=== PATIENT | female | born 1950 | race Caucasian/White ===

== ENCOUNTER 2019-11-20 07:38 | Outpatient (REF) | payer MEDICARE, SELFPAY ==
[2019-11-20 08:34] LABS: MANUAL DIFF FLAG NO
[2019-11-20 08:41] LABS: Basophils Percent Auto 0.5 % (0-2); Eosinophils Percent Auto 0.4 % (0-4); Hematocrit 35.5 % (37-47); Hemoglobin 11.6 g/dl (12.0-16.0); Imm Gran Abs Auto 0.05 X10*3/uL (0.00-0.03); Imm Gran Pct Auto 0.7 % (0.0-0.4); Lymphocytes Absolute Auto 1.4 X10*3/uL (1.2-4.9); Lymphocytes Percent Auto 18.7 % (20-40); Mean Corpuscular HGB Conc 32.7 g/dl (31.0-35.0); Mean Corpuscular Hemoglobin 32.3 pg (27.0-33.0); Mean Corpuscular Volume 98.9 fL (80-98); Mean Platelet Volume 9.7 fL (9.4-12.3); Monocytes Absolute Auto 0.7 X10*3/uL (0.1-1.2); Monocytes Percent Auto 8.6 % (2-11); Neutrophils Absolute Auto 5.4 X10*3/uL (2.0-8.3); Neutrophils Percent Auto 71.1 % (45-73); Platelet Count 149 X10*3/uL (160-400); Red Blood Count 3.59 X10*6/uL (4.20-5.50); Red Cell Distribution Width 13.2 % (11.0-16.0); White Blood Count 7.6 X10*3/uL (4.8-10.8)
== END 2019-11-20 07:39 | disposition home or self-care (01) ==
LOC: HO.LAB 07:38
PROVIDERS: PCP Internal Medicine; Visit Provider Internal Medicine Medical Oncology
DX: D69.3 Immune thrombocytopenic purpura (principal)
CPT/HCPCS: 36415; 85025

== ENCOUNTER 2019-12-03 07:08 | Outpatient (REF) | payer MEDICARE, BC, SELFPAY ==
[2019-12-03 07:43] LABS: MANUAL DIFF FLAG NO
[2019-12-03 07:52] LABS: Basophils Percent Auto 0.5 % (0-2); Eosinophils Absolute Auto 0.1 X10*3/uL (0.0-0.4); Eosinophils Percent Auto 0.7 % (0-4); Hematocrit 37.8 % (37-47); Hemoglobin 12.1 g/dl (12.0-16.0); Imm Gran Abs Auto 0.09 X10*3/uL (0.00-0.03); Imm Gran Pct Auto 1.1 % (0.0-0.4); Mean Corpuscular Hemoglobin 32.2 pg (27.0-33.0); Mean Corpuscular Volume 100.5 fL (80-98); Mean Platelet Volume 9.5 fL (9.4-12.3); Monocytes Absolute Auto 0.6 X10*3/uL (0.1-1.2); Monocytes Percent Auto 7.5 % (2-11); Neutrophils Absolute Auto 5.8 X10*3/uL (2.0-8.3); Neutrophils Percent Auto 67.2 % (45-73); Platelet Count 148 X10*3/uL (160-400); Red Blood Count 3.76 X10*6/uL (4.20-5.50); Red Cell Distribution Width 13.9 % (11.0-16.0); White Blood Count 8.6 X10*3/uL (4.8-10.8)
== END 2019-12-03 07:09 | disposition home or self-care (01) ==
LOC: HO.LABR 07:08
PROVIDERS: PCP Internal Medicine; Visit Provider Internal Medicine Medical Oncology
DX: D69.3 Immune thrombocytopenic purpura (principal)
CPT/HCPCS: 36415; 85025

== ENCOUNTER 2019-12-15 11:52 | Inpatient (IN) | payer MEDICARE, BC, SELFPAY ==
[2019-12-15] VITALS (7 sets, daily range): BP systolic 112–147; BP diastolic 65–77; PULSE 88–129; RESP 16–20; TEMP 36.6–39.4; O2SAT 87–98; BMI 29.7; BMI 32.5
--- NOTE | 2019-12-15 12:23 | ED.GENADULT ---
HPI - General Adult General Chief complaint: Nausea/Vomiting/Diarrhea Stated complaint: sob Time Seen by Provider: 12/15/19 12:23 Source: patient Mode of arrival: ambulatory Limitations: no limitations History of Present Illness HPI narrative: Roseann is a 69 y/o F with hx of ITP on For maintenance prednisone 7.5 mg daily, Hypothyroidism,HTN, and HLD presents via [facility] [facility] c/o past 4 days developed upper respiratory symptoms of rhinorrhea /cough by body aches and nausea or vomiting and pain on r side of chest with SOB. she denies any prior history of airway disease, no recent travel or known sick contacts. Onset (ago): day(s) (4 days ) Location: chest Radiation: non-radiation Severity: moderate Severity scale (1-10): 2 Quality: aching Pain Consistency: constant Related Data Home Medications Medication Instructions Recorded Confirmed levothyroxine 50 mcg PO DAILY 12/15/19 12/15/19 metoprolol succinate 75 mg PO DAILY 12/15/19 12/15/19 omeprazole 20 mg PO DAILY 12/15/19 12/15/19 prednisone 5 mg PO Q3D 12/15/19 12/15/19 prednisone 7.5 mg PO PER PKG DIR 12/15/19 12/15/19 rosuvastatin 5 mg PO BEDTIME 12/15/19 12/15/19 Allergies Allergy/AdvReac Type Severity Reaction Status Date / Time sulfur Allergy Unknown Verified 04/02/18 00:00 cillin family Allergy Unknown Uncoded 04/02/18 00:00 [facility] Past Medical History Medical History (Updated 12/15/19 @ 15:59 by Jewel Baca NP) Chronic ITP (idiopathic thrombocytopenia) Hypercholesterolemia Hypertension Social History Social History Alcohol intake: never Smoking Status: Never smoker Use of substances other than those prescribed or required for medical reasons: No Advance Directives: No Advance Directives Information Provided: No Physical Exam Vital Signs: Vital Signs: Vital Signs Temp Pulse Resp BP Pulse Ox 12/15/19 15:40 101.1 F H 12/15/19 14:05 103.0 F H 119 H 18 139/65 91 L 12/15/19 12:24 87 L 12/15/19 11:59 101.3 F H 129 H 20 147/66 H 92 Body Mass Index 29.7 Reviewed Const: General: cooperative and healthy appearing; No acute distress or intoxicated appearing Nutritional Appearance: average body habitus Orientation/consciousness: patient oriented x3 HENMT: Head: Yes normal to inspection Ears: hearing grossly normal bilaterally Eyes: General: appearance normal, both eyes and all related structures Visual [place]: normal visual de la paz by confrontation Neck: Neck: Yes normal visual inspection and No tender Thyroid: Thyroid normal Chest: Chest palpation & inspection: normal inspection of the chest Resp: Effort & Inspection: normal respiratory effort Auscultation: wheezes (Slight Bibasilar) Cardio: Jugular venous distension: no JVD GI: Inspection: Yes normal to inspection Percussion: Yes normal to percussion Auscultation: normal bowel sounds : General: Yes no CVA tenderness Back/Spine/Pelvis: Back: no CVA tenderness Skin: General skin exam: no rashes or lesions noted Neuro: General: patient oriented x3 Extrem: General: Yes normal to inspection Course Course Course Narrative: 1210 findings/ exam concerning for COVID-19/pneumonia. EKG, chest x-ray, COVID-19 certification labs including influenza swab ordered. Patient per RN on room air 88-89% improved to 94% on 2 L of oxygen currently at bedside in no acute distress. Does have a nagging cough, she is on prednisone will go ahead and give her albuterol treatment and monitor closely. This time in no acute distress. Plans/findings reviewed. And agreeable. sepsis screening completed aside from the hypoxia does not meet any sepsis criteria at this time. Reevaluation(s) Reevaluation #1: 1310 Chest x-ray reviewed concerning for patchy infiltrate /CAP Labs/blood cultures done on arrival labs pending. Feels better after neb hemodynamically stable. Ceftriaxone/ azithromycin ordered. Reevaluation #2: 1410 Leukocytosis 14/ low-grade fever / abnormal chest x-ray meets sepsis criteria already given ceftriaxone /azithromycin. No lactic acidosis. No evidence of severe sepsis. DDIMER 7210 / Renal function intact CTA PE Protocol ordered. [address] Cheung for CTA chest PE: extensive PE, no strain Consultations Consultation #1: Case discussed with hospitalist Hodan Carlson NP, accepts care. Medical Decision Making Lab Data Result diagrams: 12/15/19 12:52 12/15/19 12:50 Labs: Lab Results 10/27/20 10/27/20 10/27/20 Range/Units 12:49 12:50 12:50 WBC (4.8-10.8) X10*3/uL RBC (4.20-5.50) X10*6/uL Hgb (12.0-16.0) g/dl Hct (37-47) % MCV (80-98) fL MCH (27.0-33.0) pg MCHC (31.0-35.0) g/dl RDW (11.0-16.0) % Plt Count (160-400) X10*3/uL MPV (9.4-12.3) fL Immature Gran % (Auto) (0.0-0.4) % Neut % (Auto) (45-73) % Lymph % (Auto) (20-40) % [place] % (Auto) (2-11) % Eos % (Auto) (0-4) % Baso % (Auto) (0-2) % Lymph # (Auto) (1.2-4.9) X10*3/uL [place] # (Auto) (0.1-1.2) X10*3/uL Eos # (Auto) (0.0-0.4) X10*3/uL Baso # (Auto) (0.0-0.2) X10*3/uL Abs Immat Gran (auto) (0.00-0.03) X10*3/uL Absolute Neuts (auto) (2.0-8.3) X10*3/uL Absolute Nucleated RBC (0.0-0.012) X10*3/uL Nucleated RBC % (auto) (0.0-0.2) /100WBC PT 15.2 H (10.8-13.0) SEC INR 1.3 H (0.9-1.1) APTT 41.7 H (24.1-38.0) SEC D-Dimer 7210 NG/ML Sodium 131 L (135-145) mmol/L Potassium 4.1 (3.3-5.1) mmol/l Chloride 95 L (96-108) mmol/L Carbon Dioxide 24 (22-29) mmol/L Anion Gap 16 (12-20) BUN 16 (9-16) mg/dL Creatinine 1.04 (0.5-1.4) mg/dL Estim Creat Clear Calc 59.2 Estimated GFR 53 Random Glucose 140 H (60-115) mg/dL Lactic Acid (0.5-2.0) mmol/L Calcium 8.2 L (8.4-10.2) mg/dL Total Bilirubin 1.1 H (0.0-1.0) mg/dL AST 43 H (5-31) U/L ALT 38 H (0-31) U/L Alkaline Phosphatase 59 (39-117) U/L Lactate Dehydrogenase 237 H (122-220) U/L Troponin I High Sens (<3.5-17.0) ng/L B-Natriuretic Peptide (<100) pg/mL Total Protein 6.4 L (6.5-8.0) g/dL Albumin 3.8 (3.5-5.0) g/dL Procalcitonin 0.52 ng/mL Respiratory Panel Maldonado Adenovirus (Rapid PCR) (Not Detect.) B.pert (TEM-PCR) (Not Detect.) B.parapertussis DNA PCR (Not Detect.) C. pneumoniae DNA (PCR) (Not Detect.) Coronavirus OC43 (PCR) (Not Detect.) Coronavirus HKU1 (PCR) (Not Detect.) Coronavirus 229E (PCR) (Not Detect.) Coronavirus NL63 (PCR) (Not Detect.) Human Metapneumovir PCR (Not Detect.) Influenza A (RT-PCR) (Not Detect.) Influenza B (RT-PCR) (Not Detect.) M. pneumoniae (PCR) (Not Detect.) Parainfluenza 1 (PCR) (Not Detect.) Parainfluenza 2 (PCR) (Not Detect.) Parainfluenza 3 (PCR) (Not Detect.) Parainfluenza 4 (PCR) (Not Detect.) RSV (PCR) (Not Detect.) Entero/Rhino (PCR) (Not Detect.) SARS-CoV-2 RNA (RT-PCR) (Not Detect.) 12/15/19 12/15/19 12/15/19 Range/Units 12:50 12:50 12:52 WBC 14.0 H (4.8-10.8) X10*3/uL RBC 3.54 L (4.20-5.50) X10*6/uL Hgb 11.1 L (12.0-16.0) g/dl Hct 33.9 L (37-47) % MCV 95.8 (80-98) fL MCH 31.4 (27.0-33.0) pg MCHC 32.7 (31.0-35.0) g/dl RDW 14.5 (11.0-16.0) % Plt Count 119 L (160-400) X10*3/uL MPV 9.7 (9.4-12.3) fL Immature Gran % (Auto) 0.8 H (0.0-0.4) % Neut % (Auto) 84.2 H (45-73) % Lymph % (Auto) 7.1 L (20-40) % [place] % (Auto) 7.8 (2-11) % Eos % (Auto) 0.0 (0-4) % Baso % (Auto) 0.1 (0-2) % Lymph # (Auto) 1.0 L (1.2-4.9) X10*3/uL [place] # (Auto) 1.1 (0.1-1.2) X10*3/uL Eos # (Auto) 0.0 (0.0-0.4) X10*3/uL Baso # (Auto) 0.0 (0.0-0.2) X10*3/uL Abs Immat Gran (auto) 0.11 H (0.00-0.03) X10*3/uL Absolute Neuts (auto) 11.8 H (2.0-8.3) X10*3/uL Absolute Nucleated RBC 0.000 (0.0-0.012) X10*3/uL Nucleated RBC % (auto) 0.0 (0.0-0.2) /100WBC PT (10.8-13.0) SEC INR (0.9-1.1) APTT (24.1-38.0) SEC D-Dimer NG/ML Sodium (135-145) mmol/L Potassium (3.3-5.1) mmol/l Chloride (96-108) mmol/L Carbon Dioxide (22-29) mmol/L Anion Gap (12-20) BUN (9-16) mg/dL Creatinine (0.5-1.4) mg/dL Estim Creat Clear Calc Estimated GFR Random Glucose (60-115) mg/dL Lactic Acid 1.1 (0.5-2.0) mmol/L Calcium (8.4-10.2) mg/dL Total Bilirubin (0.0-1.0) mg/dL AST (5-31) U/L ALT (0-31) U/L Alkaline Phosphatase (39-117) U/L Lactate Dehydrogenase (122-220) U/L Troponin I High Sens 11.9 (<3.5-17.0) ng/L B-Natriuretic Peptide 24 (<100) pg/mL Total Protein (6.5-8.0) g/dL Albumin (3.5-5.0) g/dL Procalcitonin ng/mL Respiratory Panel Maldonado Adenovirus (Rapid PCR) (Not Detect.) B.pert (TEM-PCR) (Not Detect.) B.parapertussis DNA PCR (Not Detect.) C. pneumoniae DNA (PCR) (Not Detect.) Coronavirus OC43 (PCR) (Not Detect.) Coronavirus HKU1 (PCR) (Not Detect.) Coronavirus 229E (PCR) (Not Detect.) Coronavirus NL63 (PCR) (Not Detect.) Human Metapneumovir PCR (Not Detect.) Influenza A (RT-PCR) (Not Detect.) Influenza B (RT-PCR) (Not Detect.) M. pneumoniae (PCR) (Not Detect.) Parainfluenza 1 (PCR) (Not Detect.) Parainfluenza 2 (PCR) (Not Detect.) Parainfluenza 3 (PCR) (Not Detect.) Parainfluenza 4 (PCR) (Not Detect.) RSV (PCR) (Not Detect.) Entero/Rhino (PCR) (Not Detect.) SARS-CoV-2 RNA (RT-PCR) (Not Detect.) 12/15/19 Range/Units 14:03 WBC (4.8-10.8) X10*3/uL RBC (4.20-5.50) X10*6/uL Hgb (12.0-16.0) g/dl Hct (37-47) % MCV (80-98) fL MCH (27.0-33.0) pg MCHC (31.0-35.0) g/dl RDW (11.0-16.0) % Plt Count (160-400) X10*3/uL MPV (9.4-12.3) fL Immature Gran % (Auto) (0.0-0.4) % Neut % (Auto) (45-73) % Lymph % (Auto) (20-40) % [place] % (Auto) (2-11) % Eos % (Auto) (0-4) % Baso % (Auto) (0-2) % Lymph # (Auto) (1.2-4.9) X10*3/uL [place] # (Auto) (0.1-1.2) X10*3/uL Eos # (Auto) (0.0-0.4) X10*3/uL Baso # (Auto) (0.0-0.2) X10*3/uL Abs Immat Gran (auto) (0.00-0.03) X10*3/uL Absolute Neuts (auto) (2.0-8.3) X10*3/uL Absolute Nucleated RBC (0.0-0.012) X10*3/uL Nucleated RBC % (auto) (0.0-0.2) /100WBC PT (10.8-13.0) SEC INR (0.9-1.1) APTT (24.1-38.0) SEC D-Dimer NG/ML Sodium (135-145) mmol/L Potassium (3.3-5.1) mmol/l Chloride (96-108) mmol/L Carbon Dioxide (22-29) mmol/L Anion Gap (12-20) BUN (9-16) mg/dL Creatinine (0.5-1.4) mg/dL Estim Creat Clear Calc Estimated GFR Random Glucose (60-115) mg/dL Lactic Acid (0.5-2.0) mmol/L Calcium (8.4-10.2) mg/dL Total Bilirubin (0.0-1.0) mg/dL AST (5-31) U/L ALT (0-31) U/L Alkaline Phosphatase (39-117) U/L Lactate Dehydrogenase (122-220) U/L Troponin I High Sens (<3.5-17.0) ng/L B-Natriuretic Peptide (<100) pg/mL Total Protein (6.5-8.0) g/dL Albumin (3.5-5.0) g/dL Procalcitonin ng/mL Respiratory Panel Maldonado See Note Adenovirus (Rapid PCR) Not Detected (Not Detect.) B.pert (TEM-PCR) Not Detected (Not Detect.) B.parapertussis DNA PCR Not Detected (Not Detect.) C. pneumoniae DNA (PCR) Not Detected (Not Detect.) Coronavirus OC43 (PCR) Not Detected (Not Detect.) Coronavirus HKU1 (PCR) Not Detected (Not Detect.) Coronavirus 229E (PCR) Not Detected (Not Detect.) Coronavirus NL63 (PCR) Not Detected (Not Detect.) Human Metapneumovir PCR Not Detected (Not Detect.) Influenza A (RT-PCR) Not Detected (Not Detect.) Influenza B (RT-PCR) Not Detected (Not Detect.) M. pneumoniae (PCR) Not Detected (Not Detect.) Parainfluenza 1 (PCR) Not Detected (Not Detect.) Parainfluenza 2 (PCR) Not Detected (Not Detect.) Parainfluenza 3 (PCR) Not Detected (Not Detect.) Parainfluenza 4 (PCR) Not Detected (Not Detect.) RSV (PCR) Not Detected (Not Detect.) Entero/Rhino (PCR) Not Detected (Not Detect.) SARS-CoV-2 RNA (RT-PCR) Not Detected (Not Detect.) Imaging Data CT scan - chest: Radiologist's impression: [place] [address] CT Scan Report Signed Patient: Carolina Guido#: [id number] : 3Acct:[id number] Age/Sex: 69 / FADM Date: 12/15/19 Loc: HO.ED Attending Dr: Ordering Physician: Jewel Baca NP Date of Service: 12/15/19 Procedure(s): CT angio chest PE protocol Accession Number(s): [id number] cc: Jewel Baca NP~ EXAMINATION: CT ANGIOGRAM OF THE CHEST WITH AND WITHOUT CONTRAST (CT PULMONARY ANGIOGRAM FOR PE) CLINICAL INFORMATION: Reason for Exam SOB COMPARISON: Chest x-ray earlier the same day TECHNIQUE: Prior to contrast administration, noncontrast localization images were obtained. Subsequently, multidetector volumetric imaging was performed from the thoracic inlet to below the diaphragms following the administration of 65 mL Omnipaque 350 intravenous contrast. No contrast reaction reported Sagittal, coronal, and MIP oblique sagittal reformatted images were obtained on the CT workstation, uploaded to PACS, and reviewed. This CT examination was performed using dose optimization techniques as appropriate, variously including the following: *Automated exposure control *Adjustment of mA and/or kV according to patient size (this includes techniques or standardized protocols for targeted exams where dose is matched to indication/reason for exam; i.e. extremities or head) *Use of iterative reconstruction technique Total exam dose-length product 377 mGy-cm FINDINGS: QUALITY OF STUDY/CONTRAST BOLUS: Satisfactory. PULMONARY ARTERIES: There are bilateral segmental pulmonary emboli in the right upper, right middle and right lower lobes and left upper and left lower lobes THORACIC AORTA: No aneurysm or dissection. LUNG: There is a right lower lobe airspace disease with air bronchograms. There is elevation of the right hemidiaphragm. There is subsegmental atelectasis at the left lung base. PLEURA: There is a loculated right pleural effusion in the right pleural major fissure and a small pleural effusion at the right lung base. There is no left pleural effusion. MEDIASTINUM: The heart is slightly enlarged. There is a trace pericardial effusion. No hilar or mediastinal lymphadenopathy. No evidence of septal bowing or right heart strain. CHEST WALL/AXILLA: No axillary or internal mammary lymphadenopathy. OSSEOUS STRUCTURES: No acute or suspicious osseous abnormality. UPPER ABDOMEN: Unremarkable. No reflux of contrast into the hepatic veins to suggest elevated right heart pressures. CT/CT angio chest PE protocol IMPRESSION: Bilateral pulmonary emboli. Right lower lobe consolidation with air bronchograms. Small partially loculated right pleural effusion. VTE: Positive Findings were communicated to Jewel Baca by telephone on 12/15/2019 at 3:18 PM. Dictated By:ROSEANN CHEUNG MD Signed By:<Electronically signed by ROSEANN CHEUNG MD in OV>12/15/19 7518 DD/ 1357 TD/TT: Certified Breastfeeding Educator: ROSEANNA Chest x-ray: Radiologist's impression: [address] [address] XRay Report Signed Patient: Roseann GuidoMR#: [id number] : 3Acct:[id number] Age/Sex: 69 / FADM Date: 12/15/19 Loc: HO.ED Attending Dr: Ordering Physician: Jewel Baca NP Date of Service: 12/15/19 Procedure(s): XR chest 1V Accession Number(s): [id number] cc: Jewel Baca BRAKES INSPECTOR~ EXAMINATION: XR CHEST CLINICAL INFORMATION: Right chest pain COMPARISON: Chest 11/17/2019 TECHNIQUE: Frontal view of the chest was obtained. FINDINGS: Both lungs are somewhat expanded with bibasilar patchy linear opacity consistent atelectasis slightly worse on the right. Suspect small right pleural effusion. The heart size and pulmonary vascularity is normal. No gross bony abnormality seen. XR/XR chest 1V IMPRESSION: Bibasilar patchy linear opacity consistent with atelectasis slightly greater on the right. Small right pleural effusion is suspected. Underlying right lower lobe infiltrate cannot be excluded Dictated By:ILIANA PEDROZA MD Signed By:<Electronically signed by ILIANA PEDROZA MD in OV>12/15/19 1257 DD/ 1225 TD/TT: Certified Breastfeeding Educator: [facility] [place] Discharge Plan Discharge Clinical Impression: Pulmonary air embolism, Viral syndrome, Nausea & vomiting, CAP (community acquired pneumonia), Sepsis Patient Disposition: Admitted As Inpatient Prescriptions: No Action metoprolol succinate 50 mg tablet extended release 24 hr 75 mg PO DAILY RF: 0 levothyroxine 50 mcg tablet 50 mcg PO DAILY RF: 0 omeprazole 20 mg capsule,delayed release(DR/EC) 20 mg PO DAILY RF: 0 rosuvastatin 5 mg tablet 5 mg PO BEDTIME RF: 0 prednisone 5 mg Tablet 7.5 mg PO PER PKG DIR RF: 0 prednisone 5 mg Tablet 5 mg PO Q3D RF: 0
[2019-12-15 13:01] LABS: MANUAL DIFF FLAG NO
[2019-12-15 13:03] LABS: Basophils Percent Auto 0.1 % (0-2); Hematocrit 33.9 % (37-47); Hemoglobin 11.1 g/dl (12.0-16.0); Imm Gran Abs Auto 0.11 X10*3/uL (0.00-0.03); Imm Gran Pct Auto 0.8 % (0.0-0.4); Lymphocytes Percent Auto 7.1 % (20-40); Mean Corpuscular HGB Conc 32.7 g/dl (31.0-35.0); Mean Corpuscular Hemoglobin 31.4 pg (27.0-33.0); Mean Corpuscular Volume 95.8 fL (80-98); Mean Platelet Volume 9.7 fL (9.4-12.3); Monocytes Absolute Auto 1.1 X10*3/uL (0.1-1.2); Monocytes Percent Auto 7.8 % (2-11); Neutrophils Absolute Auto 11.8 X10*3/uL (2.0-8.3); Neutrophils Percent Auto 84.2 % (45-73); Platelet Count 119 X10*3/uL (160-400); Red Blood Count 3.54 X10*6/uL (4.20-5.50); Red Cell Distribution Width 14.5 % (11.0-16.0)
[2019-12-15 13:21] LABS: INTERNATIONAL NORM RATIO 1.3 (0.9-1.1); Prothrombin Time 15.2 SEC (10.8-13.0)
[2019-12-15 13:24] LABS: Partial Thromboplastin Time 41.7 SEC (24.1-38.0)
[2019-12-15 13:27] LABS: Lactic Acid 1.1 mmol/L (0.5-2.0)
[2019-12-15 13:36] LABS: Alanine Aminotransferase 38 U/L (0-31); Albumin Level 3.8 g/dL (3.5-5.0); Alkaline Phosphatase 59 U/L (39-117); Anion Gap 16 (12-20); Aspartate Amino Transferase 43 U/L (5-31); Bilirubin Total 1.1 mg/dL (0.0-1.0); Blood Urea Nitrogen 16 mg/dL (9-16); Calcium 8.2 mg/dL (8.4-10.2); Carbon Dioxide 24 mmol/L (22-29); Chloride 95 mmol/L (96-108); Creatinine Clr Calc Pharmacy 59.2; Estimated Glomerular Filt Rate 53; Glucose Random 140 mg/dL (60-115); Lactate Dehydrogenase 237 U/L (122-220); Potassium 4.1 mmol/l (3.3-5.1); Sodium 131 mmol/L (135-145); Total Protein 6.4 g/dL (6.5-8.0)
[2019-12-15 13:39] LABS: B Type Natriuretic Peptide 24 pg/mL (<100); Troponin-I High Sensitivity 11.9 ng/L (<3.5-17.0)
[2019-12-15 13:56] LABS: D Dimer 7210 NG/ML
[2019-12-15] MEDS: cefTRIAXone sodium 1 GM in 0.9 % Sodium Chloride 50 ML IV (13:57)
--- NOTE | 2019-12-15 13:57 | CT_ITS ---
EXAMINATION: CT ANGIOGRAM OF THE CHEST WITH AND WITHOUT CONTRAST (CT PULMONARY ANGIOGRAM FOR PE) CLINICAL INFORMATION: Reason for Exam SOB COMPARISON: Chest x-ray earlier the same day TECHNIQUE: Prior to contrast administration, noncontrast localization images were obtained. Subsequently, multidetector volumetric imaging was performed from the thoracic inlet to below the diaphragms following the administration of 65 mL Omnipaque 350 intravenous contrast. No contrast reaction reported Sagittal, coronal, and MIP oblique sagittal reformatted images were obtained on the CT workstation, uploaded to PACS, and reviewed. This CT examination was performed using dose optimization techniques as appropriate, variously including the following: *Automated exposure control *Adjustment of mA and/or kV according to patient size (this includes techniques or standardized protocols for targeted exams where dose is matched to indication/reason for exam; i.e. extremities or head) *Use of iterative reconstruction technique Total exam dose-length product 377 mGy-cm FINDINGS: QUALITY OF STUDY/CONTRAST BOLUS: Satisfactory. PULMONARY ARTERIES: There are bilateral segmental pulmonary emboli in the right upper, right middle and right lower lobes and left upper and left lower lobes THORACIC AORTA: No aneurysm or dissection. LUNG: There is a right lower lobe airspace disease with air bronchograms. There is elevation of the right hemidiaphragm. There is subsegmental atelectasis at the left lung base. PLEURA: There is a loculated right pleural effusion in the right pleural major fissure and a small pleural effusion at the right lung base. There is no left pleural effusion. MEDIASTINUM: The heart is slightly enlarged. There is a trace pericardial effusion. No hilar or mediastinal lymphadenopathy. No evidence of septal bowing or right heart strain. CHEST WALL/AXILLA: No axillary or internal mammary lymphadenopathy. OSSEOUS STRUCTURES: No acute or suspicious osseous abnormality. UPPER ABDOMEN: Unremarkable. No reflux of contrast into the hepatic veins to suggest elevated right heart pressures. CT/CT angio chest PE protocol IMPRESSION: Bilateral pulmonary emboli. Right lower lobe consolidation with air bronchograms. Small partially loculated right pleural effusion. VTE: Positive Findings were communicated to Jewel Baca by telephone on 12/15/2019 at 3:18 PM.
[2019-12-15 14:21] LABS: Adenovirus PCR Not Detected (Not Detect.); Bordetella parapertussis PCR Not Detected (Not Detect.); Bordetella pertussis PCR Not Detected (Not Detect.); Chlamydia pneumoniae PCR Not Detected (Not Detect.); Coronavirus 229E PCR Not Detected (Not Detect.); Coronavirus HKU1 PCR Not Detected (Not Detect.); Coronavirus NL63 PCR Not Detected (Not Detect.); Coronavirus OC43 PCR Not Detected (Not Detect.); Human metapneumovirus PCR Not Detected (Not Detect.); Influenza A PCR Not Detected (Not Detect.); Influenza B PCR Not Detected (Not Detect.); Mycoplasma pneumoniae PCR Not Detected (Not Detect.); Parainfluenza 1 PCR Not Detected (Not Detect.); Parainfluenza 2 PCR Not Detected (Not Detect.); Parainfluenza 3 PCR Not Detected (Not Detect.); Parainfluenza 4 PCR Not Detected (Not Detect.); RSV PCR Not Detected (Not Detect.); Rhino/Enterovirus PCR Not Detected (Not Detect.); SARS-CoV-2 PCR Not Detected (Not Detect.)
[2019-12-15] MEDS: Acetaminophen 325 MG TABLET 975 MG PO (14:39)
[2019-12-15] MEDS: ondansetron HCL 4 MG/2 ML VIAL IVPUSH (14:40)
[2019-12-15 14:52] LABS: Procalcitonin 0.52 ng/mL
[2019-12-15] MEDS: iohexoL 350 MG/ML 100 ML INFUS..BTL 65 ML IV (14:54)
--- NOTE | 2019-12-15 15:06 | PC.NURSE ---
pt verified her prednisone dose as 7.5mg once daily for day 1 & 2 then 5mg for day 3 and then the cycle repeats. - pharmacist aware
[2019-12-15] MEDS: Azithromycin 500 MG in 0.9 % Sodium Chloride 250 ML 125 MG IV (15:18)
[2019-12-15 15:57] LABS: Hematocrit 32.3 % (37-47); Hemoglobin 10.6 g/dl (12.0-16.0); Mean Corpuscular HGB Conc 32.8 g/dl (31.0-35.0); Mean Corpuscular Hemoglobin 31.2 pg (27.0-33.0); Mean Platelet Volume 9.4 fL (9.4-12.3); Platelet Count 116 X10*3/uL (160-400); Red Cell Distribution Width 14.5 % (11.0-16.0); White Blood Count 13.1 X10*3/uL (4.8-10.8)
[2019-12-15 16:03] LABS: INTERNATIONAL NORM RATIO 1.3 (0.9-1.1); Prothrombin Time 15.8 SEC (10.8-13.0)
[2019-12-15 16:05] LABS: PTT Heparin Drip 43.6 SEC (53-77.9)
[2019-12-15] MEDS: Heparin Sodium,Porcine 5,000 UNIT/ML VIAL 3447.32 UNIT IVPUSH (16:17)
[2019-12-15 16:28] LABS: Troponin-I High Sensitivity 18.6 ng/L (<3.5-17.0)
[2019-12-15] MEDS: Heparin Sodium,Porcine/1/2NS 25,000 UNIT/250 ML IV.SOLN 12.07 UNIT IVCONT (16:30)
--- NOTE | 2019-12-15 17:42 | PM.EVENT ---
Event Note Event Note: This patient is seen and examined with APC. Patient said she is having dry cough some runny nose, nausea from 3-4 days , also started to having sweating and fever since yesterday-she went to her PCP today and subsequently sent to the ED for further evaluation She said she was also feeling winded and also had some chest discomfort. Denies any sick contacts, any travel or any family member with similar symptoms. labs ,magin review reviewed: Patient had elevated WBC count, elevated LFT, mild hyponatremia, troponin flat, BNP normal Blood culture, urine strep and Legionella antigen. CTA chest: Showed bilateral pulmonary embolism lobe pneumonia with small effusion RES panel negative Physical exam: Cvs: rrr, [id number] , no murmur res: Air entry diminished at the bases right is more than left, has few scattered rhonchi abd: no rebound or guarding ,nt, bs present. ext pulses present , no cyanosis neuro: axo3 , nonfocal. Physical exam and assessment and plan coordinated in APCs note, Agree with the plan in addition: Patient has history of ITP, now has pulmonary embolism Initially in ED received heparin drip, Will switch the patient to Lovenox as per hematology Hematology and Infectious Disease evaluation in a.m..
--- NOTE | 2019-12-15 18:09 | HP_ITS ---
DATE OF SERVICE: 12/15/2019 CHIEF COMPLAINT: Shortness of breath. HISTORY OF PRESENT ILLNESS: 69-year-old woman, presenting to the ER with complaints of shortness of breath, dry cough, fever, chills, nausea and vomiting since last Saturday. She denies any recent travel or sick contacts. She reports pain with deep inspiration. 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 She was noted to have an elevated white blood cell count of 13.1 with platelet count of 116. Sodium 131, bilirubin 1.1, AST 43, ALT 38, LDH 237. Troponin 18.6. Chest CTA showed bilateral pulmonary emboli with right lower lobe consolidation with air bronchograms and small partially loculated right pleural effusion. She was also noted to have a fever of 103 with tachycardia and hypoxia. She was started on IV heparin and given albuterol, Zofran, ceftriaxone, azithromycin, and Tylenol. She will be admitted for further management and treatment of sepsis secondary to community-acquired pneumonia. PAST MEDICAL HISTORY: 1. Hypothyroidism. 2. Hypertension. 3. Hyperlipidemia. 4. ITP, on prednisone. PAST SURGICAL HISTORY: None. FAMILY HISTORY: Mother had colon and rectal cancer. Father had lung cancer. SOCIAL HISTORY: Denies any alcohol, tobacco, or illicit drug use. Is retired. ALLERGIES: ALLERGIES TO SULFUR. MEDICATIONS: 1. Levothyroxine 50 mcg p.o. daily. 2. Metoprolol succinate 75 mg p.o. daily. 3. Omeprazole 20 mg p.o. daily. 4. Prednisone 7.5 mg p.o. 5. Prednisolone 5 mg every 3 days. 6. Rosuvastatin 5 mg p.o. at bedtime. REVIEW OF SYSTEMS: CONSTITUTIONAL: Reports fever, chills, and decrease in appetite. RESPIRATORY: See HPI. CARDIOVASCULAR: Denies any chest pain, orthopnea, PND, or edema. GASTROINTESTINAL: See HPI. GENITOURINARY: Denies any dysuria, frequency, or hematuria. MUSCULOSKELETAL: Denies joint pain or swelling. NEUROPSYCH: Denies any weakness or seizures. All other systems are reviewed and are negative. PHYSICAL EXAMINATION: CONSTITUTIONAL: Resting in bed, appearing in no acute distress. VITAL SIGNS: 101.1, 119, 18, 139/65, 91% on 2 L. SKIN: Intact without rashes or open sores. HEENT: Head is normocephalic, atraumatic. Eyes, pupils are PERRLA. Sclerae anicteric. Mouth and Throat: Mucous membranes are intact and moist. NECK: Supple. No lymphadenopathy. No JVD noted. CHEST: Normal lung expansion. HEART: Tachycardic. NEURO: The patient is alert and oriented x3. Cranial nerves II through XII are grossly intact without focal deficits. LABORATORY DATA: WBC 13.1, hemoglobin 10.6, hematocrit 32.3, platelets 116. Sodium is 131, potassium is 4.1, chloride is 95, glucose is 140, total bilirubin is 1.1, AST is 43, ALT is 38, LDH is 237. Procalcitonin is 0.52. Troponin 18.6. ASSESSMENT AND PLAN: 69-year-old woman, who is being admitted with sepsis related to community-acquired pneumonia and also found to have bilateral pulmonary emboli. 1. Sepsis. Fever, leukocytosis, tachycardia, normal lactic acid. Follow up blood cultures. 2. Community-acquired pneumonia. COVID negative. We will treat with Rocephin and azithromycin. Continue supplemental oxygen. 3. Acute respiratory failure. Related to community-acquired pneumonia. Continue oxygen supplementation and treatment as above. 4. Bilateral pulmonary embolus. No trauma, spontaneous. Lovenox,, Hematology to follow. We will check coags. 5. Hypertension. Continue metoprolol. 6. ITP. Continue steroids monitor platelet count. 7. Gastroesophageal reflux disease. Continue PPI. 8. Hyperlipidemia. Continue statin. 9. Deep vein thrombosis prophylaxis with Lovenox. 10. Case discussed with Dr. Moura. Full code. DEIDRA Solorzano MD JR/SANKET / [id number] MTDD
--- NOTE | 2019-12-15 18:40 | PC.NURSE ---
heparinn drip d/c after 20ml infused per md canales. pt continues resting comfortable, in no distress.
[2019-12-15] MEDS: Atorvastatin Calcium 20 MG TABLET PO (20:52)
[2019-12-15] MEDS: Enoxaparin Sodium 100 MG/ML SYRINGE 95 MG SUBCUT (20:53)
[2019-12-15] MEDS: 0.9 % Sodium Chloride Flush 3 ML SYRINGE IVFLUSH (20:54)
[2019-12-16] VITALS (7 sets, daily range): BP systolic 122–146; BP diastolic 58–70; PULSE 90–114; RESP 16–20; TEMP 36.1–37.5; O2SAT 94–100; BMI 32.5
--- NOTE | 2019-12-16 | ECG_ITS ---
Test Reason : CHEST PAIN Blood Pressure : / mmHG Vent. Rate : 099 BPM Atrial Rate : 099 BPM P-R Int : 164 ms QRS Dur : 090 ms QT Int : 360 ms P-R-T Axes : 034 030 011 degrees QTc Int : 462 ms Normal sinus rhythm Nonspecific T wave abnormality Low voltage QRS Abnormal ECG No previous ECGs available Referred By: Izabela Moura Electronically Signed By:TAMMY MORA MD
[2019-12-16 06:21] LABS: MANUAL DIFF FLAG NO
[2019-12-16 06:39] LABS: Basophils Percent Auto 0.1 % (0-2); Eosinophils Percent Auto 0.1 % (0-4); Hematocrit 30.6 % (37-47); Hemoglobin 9.9 g/dl (12.0-16.0); Imm Gran Abs Auto 0.09 X10*3/uL (0.00-0.03); Imm Gran Pct Auto 0.8 % (0.0-0.4); Lymphocytes Absolute Auto 1.6 X10*3/uL (1.2-4.9); Mean Corpuscular HGB Conc 32.4 g/dl (31.0-35.0); Mean Corpuscular Hemoglobin 31.2 pg (27.0-33.0); Mean Corpuscular Volume 96.5 fL (80-98); Mean Platelet Volume 10.1 fL (9.4-12.3); Monocytes Absolute Auto 0.9 X10*3/uL (0.1-1.2); Monocytes Percent Auto 7.8 % (2-11); Neutrophils Absolute Auto 8.3 X10*3/uL (2.0-8.3); Neutrophils Percent Auto 76.2 % (45-73); Platelet Count 128 X10*3/uL (160-400); Red Blood Count 3.17 X10*6/uL (4.20-5.50); Red Cell Distribution Width 14.3 % (11.0-16.0); White Blood Count 10.9 X10*3/uL (4.8-10.8)
[2019-12-16 06:40] LABS: INTERNATIONAL NORM RATIO 1.2 (0.9-1.1); Prothrombin Time 14.7 SEC (10.8-13.0)
[2019-12-16 07:01] LABS: Alanine Aminotransferase 28 U/L (0-31); Albumin Level 3.2 g/dL (3.5-5.0); Alkaline Phosphatase 55 U/L (39-117); Anion Gap 15 (12-20); Aspartate Amino Transferase 28 U/L (5-31); Bilirubin Direct 0.3 mg/dL (0.0-0.5); Bilirubin Total 0.6 mg/dL (0.0-1.0); Blood Urea Nitrogen 17 mg/dL (9-16); Calcium 7.9 mg/dL (8.4-10.2); Carbon Dioxide 24 mmol/L (22-29); Chloride 100 mmol/L (96-108); Creatinine Clr Calc Pharmacy 89.4; Estimated Glomerular Filt Rate > 60; Glucose Random 109 mg/dL (60-115); Potassium 3.9 mmol/l (3.3-5.1); Sodium 135 mmol/L (135-145); Total Protein 5.6 g/dL (6.5-8.0)
[2019-12-16] MEDS: 0.9 % Sodium Chloride Flush 3 ML SYRINGE IVFLUSH ×3 (08:23→20:43)
[2019-12-16] MEDS: Enoxaparin Sodium 100 MG/ML SYRINGE 95 MG SUBCUT ×2 (08:23→20:41)
[2019-12-16] MEDS: Metoprolol Succinate ER 50 MG TAB.ER.24H 75 MG PO (08:24)
[2019-12-16] MEDS: predniSONE 5 MG TABLET PO (08:24)
[2019-12-16] MEDS: Levothyroxine Sodium 50 MCG TABLET PO (08:24)
[2019-12-16 08:56] LABS: Hematocrit 34.7 % (37-47); Hemoglobin 11.2 g/dl (12.0-16.0); Mean Corpuscular HGB Conc 32.3 g/dl (31.0-35.0); Mean Corpuscular Hemoglobin 31.5 pg (27.0-33.0); Mean Corpuscular Volume 97.5 fL (80-98); Mean Platelet Volume 10.3 fL (9.4-12.3); Platelet Count 163 X10*3/uL (160-400); Red Blood Count 3.56 X10*6/uL (4.20-5.50); Red Cell Distribution Width 14.4 % (11.0-16.0); White Blood Count 14.6 X10*3/uL (4.8-10.8)
--- NOTE | 2019-12-16 09:24 | MHC.CM.PN ---
Patient lives in a house with her and she is functionally independent and does not use O2 @ home. Home is the goal for dc and CM has initiated and will follow for dc planning. IMM addressed with Patient and the original has been given to her and a copy has been placed in the chart. Dr. Sg Zhong is the PCP.
--- NOTE | 2019-12-16 11:52 | PM.CNCAR ---
History of Present Illness History of Present Illness Date of Consult: December 16, 2019 Requesting physician: Izabela Moura Consult reason: chest pain Chief complaint: sob Narrative: This is a cardiology consultation regarding chest pain. Patient came to ER with shortness of breath, dry cough, fever, chills and some nausea/ vomiting. No recent travel or sick contacts. She has been reporting pain with deep inspiration. 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 Chest CTA shows bilateral pulmonary emboli with right lower lobe consolidation and a small partially loculated right pleural effusion. She apparently also had a fever of 103 degrees F on heparin as well as antibiotics. From a cardiac standpoint, we has been asked to assess the chest pain further. She denies any prior history of coronary disease, myocardial infarction or any other cardiac issues. No previous history of coronary disease, myocardial infarction as well. She states that she has hypertension, hyperlipidemia on medical therapy. Her chest pain is on the right side below the right breast area. Does not sound anginal. More likely pleuritic. Review of Systems Review of Systems: Cardiac-chest pain is more likely pleuritic. Not clearly suggestive of angina. No shortness of breath or dizzy spells or syncopal episodes. Constitutional positive for fever. Remainder of the 10 system review negative. [facility] Past Medical History Medical History Chronic ITP (idiopathic thrombocytopenia) Hypercholesterolemia Hypertension Social History Social History Household Members: Spouse Housing: House Do you presently have visiting nurse or other home services: No Alcohol intake: never Smoking Status: Never smoker Use of substances other than those prescribed or required for medical reasons: No Currently Displaying Signs/Symptoms of Drug Intoxication Withdrawal: No Have you been hit, kicked, punched, or otherwise hurt by someone within the past year? If so, by whom?: No Do you feel safe in your current relationship?: Yes Is there a partner from a previous relationship who is making you feel unsafe now?: No Are you made to feel afraid or neglected: No [facility] Practices: Faith Advance Directives: No Advance Directives Information Provided: No Do you have thoughts of harming others: None Do you have a plan to hurt others: No Plan Recently lost weight without trying: No service: No Current occupational status: retired Meds Allergies Allergy/AdvReac Type Severity Reaction Status Date / Time sulfur Allergy Unknown Verified 04/02/18 00:00 cillin family Allergy Unknown Uncoded 04/02/18 00:00 Home Medications Medication Instructions Recorded Confirmed Type levothyroxine 50 mcg PO DAILY 12/15/19 12/15/19 History metoprolol succinate 75 mg PO DAILY 12/15/19 12/15/19 History omeprazole 20 mg PO DAILY 12/15/19 12/15/19 History prednisone 5 mg PO Q3D 12/15/19 12/15/19 History prednisone 7.5 mg PO PER PKG DIR 12/15/19 12/15/19 History rosuvastatin 5 mg PO BEDTIME 12/15/19 12/15/19 History Physical Exam Vital Signs: Vital Signs: Vital Signs Temp Pulse Resp BP Pulse Ox 12/16/19 11:07 99.3 F 98 18 129/61 94 12/16/19 08:24 114 H 129/58 L 12/16/19 07:47 99.5 F 114 H 20 129/58 L 100 12/16/19 04:00 98.9 F 98 20 146/70 H 95 12/15/19 23:43 99.0 F 18 141/70 H 98 12/15/19 20:00 97.9 F 90 20 123/77 98 12/15/19 18:39 88 16 112/65 96 12/15/19 15:40 101.1 F H 12/15/19 14:05 103.0 F H 119 H 18 139/65 91 L 12/15/19 12:24 87 L 12/15/19 11:59 101.3 F H 129 H 20 147/66 H 92 Body Mass Index 32.5 Comfortable, no distress No pallor, icterus or cyanosis HEENT -unremarkable JVD- normal Cardiac- normal heart sounds, no murmurs, gallops or rubs, normal PMI Respiratory-normal breath sounds bilaterally, no crackles, no wheeze Abdomen- soft, nontender Neuro- alert and oriented Lower extremities- no significant edema, warm well perfused Results Labs and Meds Result diagrams: 12/16/19 08:04 12/16/19 06:04 Lab results: Laboratory Tests 12/15/19 12/15/19 12/15/19 12:50 15:51 20:45 Troponin I High Sens 11.9 18.6 H D 12.0 B-Natriuretic Peptide 24 EKG Interpretation EKG Comments: EKG shows sinus rhythm at 99/Min; nonspecific changes in inferior leads but otherwise unremarkable. CT chest - Bilateral pulmonary emboli. Right lower lobe consolidation with air bronchograms. Small partially loculated right pleural effusion. Assessment and Plan (1) Pulmonary embolism: Status: Acute (2) Chest pain: Status: Acute Her chest pain is most likely related to the pulmonary embolism and the pleural effusion as she is pointing towards the right lower chest. Unlikely cardiac in nature. We can check an echocardiogram for right ventricular size and function as well as pulmonary pressures. Management of pulmonary embolism per hospitalist team.
[2019-12-16] MEDS: cefTRIAXone sodium 1 GM in 0.9 % Sodium Chloride 50 ML IV (12:01)
[2019-12-16 12:38] LABS: Glucose Urine UA NEG (NEG); Leukocyte Esterase Urine NEG (NEG); Nitrite Urine NEG (NEG); Specific Gravity - Urine >= 1.030 (1.005-1.025); Urine Blood TRACE (NEG); Urine Ketones 15 MG/DL (NEG); Urine Protein 2+ MG/DL (NEG-TRACE)
[2019-12-16 12:40] LABS: Appearance Urine CLOUDY; Color Urine YELLOW
--- NOTE | 2019-12-16 13:00 | CA_ITS ---
Transthoracic Echocardiogram Patient (Last, First, Middle): Roseann Guido, Gender: Female Date of : 1950 Age: 69 Procedure Date: 12/16/2019 Procedure Type: Transthoracic Echocardiogram Location: [facility] [place] Height: 170.18 cm Weight: 86.18 kg BSA: 1.98 m2 Heart Rate: bpm BP: 123 / 70 mmHg Materials Scheduler: Referring MD: Izabela Moura MD Symptoms: pulm embolism Study Quality: Good ECG Rhythm: Sinus Conclusions: - The left ventricular systolic function is normal. The visually estimated ejection fraction is between 55-60%. - No obvious valvular pathology seen on this study. - Mild pulmonary hypertension is present. Findings Left Ventricle Normal left ventricular cavity size. There is normal left ventricular wall thickness. The left ventricular systolic function is normal. The visually estimated ejection fraction is between 55-60%. There is no evidence of regional wall motion abnormalities. Diastolic function is normal for age. LV endocardial peak global longitudinal strain -15.3% (low normal). Right Ventricle Normal right ventricular cavity size and systolic function. Atria The left atrium is normal in size. The right atrium is normal in size. Aortic Valve There is a normal trileaflet aortic valve. There is no aortic valve stenosis. There is trace (trivial) aortic valve regurgitation. Mitral Valve The mitral valve appears normal. There is no mitral valve regurgitation. There is no mitral valve stenosis. Pulmonic Valve The pulmonic valve was not well visualized. There is trace pulmonic valve regurgitation. Tricuspid Valve Normal tricuspid valve structure. There is trace tricuspid valve regurgitation. The right ventricular systolic pressure is 36 mmHg. Mild pulmonary hypertension is present. Great Vessels The aortic annulus, sinuses of valsalva, and asc aorta are normal in size. Venous The inferior vena cava is normal in size and collapses greater than 50% with inspiration. Pericardium/Pleural There is no evidence of pericardial effusion. Prior Study Comparison No prior study available for comparison. Recommendations, Care & Conclusions No obvious valvular pathology seen on this study. Measurements 2D Linear Measurements IVSd: 1.12 0.6-0.9/0.6-1.0 cm LVIDd: 3.94 3.9-5.3/4.2-5.9 cm LVIDd Index: 1.99 2.4-3.2/2.2-3.1 cm/m2 LVIDs: 2.53 2.0-3.6 cm LVPWd: 1.07 0.7-1.1 cm Ao Root: 2.90 2.1-3.5 cm LA Diam: 2.80 2.7-3.8/3.0-4.0 cm LAIDs Index: 1.41 1.5-2.3 cm/m2 LV Mass: 175.95 67-162/88-224 g LV Mass Index: 88.86 43-95/49-115 g/m2 LVOT Diam: 2.00 3.0+(-)1.3 cm Mitral Valve MV Pk E: 0.78 MV PK A: 0.81 MV Decel Time: 92.00 E/A: 1.00 E'Lateral: 8.81 E'Medial: 5.55 E/E' Med: 14.10 E/E' Lat: 8.90 PHT: 27.00 MVA PHT: 8.15 Decel Foard: 8.48 Aortic Valve AoV Pk Regino: 1.89 AoV Mn Regino: 1.28 AoV VTI: 0.39 AoV Pk Grad: 14.00 Aov Mn Grad: 8.00 CARLO Cont.VTI: 1.84 LVOT LVOT Pk Regino: 1.04 LVOT Mn Regino: 0.76 LVOT VTI: 0.23 LVOT Pk Grad: 4.00 LVOT Mn Grad: 3.00 LVOT Diam: 2.00 LVOT Area: 3.14 Diastolic Function MV Pk E: 0.78 MV Pk A: 0.81 E/A: 1.00 E'Medial: 5.55 E/E' Med: 14.10 E' Laterial: 8.81 E/E' Lat: 8.90 Tricuspid Valve TR Pk Regino: 2.87 TR Pk Grad: 33.00 RA Press: 3.00 RVSP: 36.00 Great Vessels Aorta Ao Root-2D: 2.90 2.0-3.7 cm Ao Asc: 3.60 2.1-3.4 cm Pulmonary Valve PV Pk Regino: 0.95 Peak PV Grad: 4.00 Updated in Other Vendor System with Status of Final Cesario Monzon MD electronically signed on 12/16/2019 4:55:29 PM with status of Final
[2019-12-16 13:12] LABS: Bacteria Urine 1+ /LPF; Hyaline Casts Urine 0-2 /LPF; Mucus Urine 1+ /LPF; Squamous Epithelial Cell Urine 1+ /LPF
[2019-12-16 13:13] LABS: Amorphous Sediment Urine 1+ /LPF
[2019-12-16] MEDS: Azithromycin 500 MG in 0.9 % Sodium Chloride 250 ML 125 MG IV (14:05)
--- NOTE | 2019-12-16 16:29 | HO.PM.IMPN ---
Subjective Subjective Date of Service: 12/16/19 Interval History: Pneumonia, bilateral pulmonary embolism. Review of Systems Patient complaining of chest tightness and shortness of breath but says she is feeling little better than yesterday. Physical Exam Vital Signs: Vital Signs: Vital Signs Temp Pulse Resp BP Pulse Ox 12/16/19 16:24 99.5 F 104 H 18 124/64 98 12/16/19 11:07 99.3 F 98 18 129/61 94 12/16/19 08:24 114 H 129/58 L 12/16/19 07:47 99.5 F 114 H 20 129/58 L 100 12/16/19 04:00 98.9 F 98 20 146/70 H 95 12/15/19 23:43 99.0 F 18 141/70 H 98 12/15/19 20:00 97.9 F 90 20 123/77 98 12/15/19 18:39 88 16 112/65 96 Body Mass Index 32.5 Physical exam: Cvs: [id number], [id number] , no murmur res: clear to auscultation -breath sounds diminshed at bases. abd: no rebound or guarding ,nt, bs present. ext pulses present , no cyanosis neuro: axo3 , nonfocal. Objective Data Current Medications Generic Name Dose Route Start Last Admin Trade Name Freq PRN Reason Stop Dose Admin Albuterol/Ipratropium 3 ml 12/15/19 20:13 Albuterol/Iprat 2.5/0.5mg 3 Ml Ampul.Neb INHALE RQ4H PRN Shortness of Breath Atorvastatin Calcium 20 mg 12/15/19 21:00 12/15/19 20:52 Atorvastatin Calcium 20 Mg Tablet PO 20 mg BEDTIME CHRISTINA Administration Enoxaparin Sodium 95 mg 12/15/19 20:00 12/16/19 08:23 Enoxaparin Sodium 100 Mg/Ml Syringe SUBCUT 95 mg Q12H CHRISTINA Administration Guaifenesin/Dextromethorphan 5 ml 12/15/19 20:13 Guaifenesin Dm 100/10/5 Ml 5 Ml Syrup PO Q4H PRN COUGH Ceftriaxone Sodium 1 gm/ 50 mls @ 100 mls/hr 12/16/19 13:00 12/16/19 12:35 Sodium Chloride IV Infused Q24H CHRISTINA Infusion Azithromycin 500 mg/ Sodium 250 mls @ 125 mls/hr 12/16/19 15:00 12/16/19 16:07 Chloride IV Infused Q24H [facility] Infusion Levothyroxine Sodium 50 mcg 12/16/19 09:00 12/16/19 08:24 Levothyroxine Sodium 50 Mcg Tablet PO 50 mcg DAILY [facility] Administration Metoprolol Succinate 75 mg 12/16/19 09:00 12/16/19 08:24 Metoprolol Succinate Er 50 Mg Tab.Er.24h PO 75 mg DAILY [facility] Administration Protocol Omeprazole 20 mg 12/16/19 09:00 12/16/19 08:24 Omeprazole 20 [address] LANDRY Not Given DAILY [facility] Pharmacy Consult 1 each 12/15/19 13:57 Consult Rx Perform Med Rec MISCELLANE ONCE PRN Consult order Prednisone 7.5 mg 12/17/19 09:00 Prednisone 5 Mg Tablet PO DAILY [facility] Sodium Chloride 3 ml 12/16/19 00:00 12/16/19 14:05 0.9 % Sodium Chloride Flush 3 Ml Syringe IVFLUSH 3 ml QSHIFT [facility] Administration Warfarin Sodium 5 mg 12/16/19 18:00 Warfarin Sodium 5 Mg Tablet PO DAILY@1800 [facility] Labs CBC & Chem 7: 12/16/19 08:04 12/16/19 06:04 Microbiology Microbiology Results: Microbiology 12/15/19 12:49 Blood - Venous Blood Culture - Preliminary No growth after 24 hours. Assessment and Plan (1) Chest pain: Status: Acute (2) Pulmonary embolism: Status: Acute (3) CAP (community acquired pneumonia): Status: Acute Assessment and Plan: 69-year-old woman, who is being admitted with sepsis related to community-acquired pneumonia and also found to have bilateral pulmonary emboli. 1. Sepsis. Probably secondary to pneumonia still has leukocytosis, tachycardia blood cultures pending Fever improving 2. Community-acquired pneumonia. COVID negative. Continue Rocephin and azithromycin. Continue supplemental oxygen. 3. Acute respiratory failure. Related to community-acquired pneumonia. Continue oxygen supplementation and treatment as above. 4. Bilateral pulmonary embolus. Continue Lovenox will add warfarin. Hematology jensen Dr. Day saw the patient and recommended above. Patient also had chest tightness-pulmonary embolism, troponin flat, echo ordered. 5. Hypertension. Continue metoprolol. 6. ITP. Continue steroids monitor platelet count. As per Hematology continue prednisone. 7. Gastroesophageal reflux disease. Continue PPI. 8. Hyperlipidemia. Continue statin.
[2019-12-16] MEDS: Warfarin Sodium 5 MG TABLET PO (17:08)
[2019-12-16] MEDS: Atorvastatin Calcium 20 MG TABLET PO (20:41)
[2019-12-17 03:54] VITALS: BP 118/66; PULSE 94; RESP 16; TEMP 36.1; O2SAT 97
[2019-12-17 06:28] LABS: Hemoglobin 9.8 g/dl (12.0-16.0)
[2019-12-17 06:52] LABS: Anion Gap 14 (12-20); Blood Urea Nitrogen 15 mg/dL (9-16); Carbon Dioxide 27 mmol/L (22-29); Chloride 101 mmol/L (96-108); Creatinine Clr Calc Pharmacy 96.1; Estimated Glomerular Filt Rate > 60; Glucose Random 114 mg/dL (60-115); INTERNATIONAL NORM RATIO 1.3 (0.9-1.1); Potassium 3.9 mmol/l (3.3-5.1); Prothrombin Time 15.1 SEC (10.8-13.0); Sodium 138 mmol/L (135-145)
[2019-12-17 08:00] VITALS: BP 140/69; PULSE 99; RESP 18; TEMP 36.6; O2SAT 96
[2019-12-17] MEDS: Enoxaparin Sodium 100 MG/ML SYRINGE 95 MG SUBCUT ×2 (09:12→18:41)
[2019-12-17] MEDS: Levothyroxine Sodium 50 MCG TABLET PO (09:15)
[2019-12-17] MEDS: 0.9 % Sodium Chloride Flush 3 ML SYRINGE IVFLUSH ×2 (09:15→15:50)
[2019-12-17] MEDS: predniSONE 5 MG TABLET 7.5 MG PO (09:15)
[2019-12-17] MEDS: Omeprazole 20 MG CAPSULE.DR PO (09:15)
[2019-12-17] MEDS: Metoprolol Succinate ER 50 MG TAB.ER.24H 75 MG PO (09:23)
[2019-12-17 09:29] LABS: Platelet Count 172 X10*3/uL (160-400)
[2019-12-17 09:39] LABS: Alanine Aminotransferase 39 U/L (0-31); Albumin Level 3.3 g/dL (3.5-5.0); Alkaline Phosphatase 64 U/L (39-117); Aspartate Amino Transferase 36 U/L (5-31); Bilirubin Direct 0.3 mg/dL (0.0-0.5); Bilirubin Total 0.6 mg/dL (0.0-1.0); Total Protein 5.6 g/dL (6.5-8.0)
[2019-12-17 12:00] VITALS: BP 123/66; PULSE 91; RESP 18; TEMP 36.4; O2SAT 96
[2019-12-17] MEDS: cefTRIAXone sodium 1 GM in 0.9 % Sodium Chloride 50 ML IV (12:21)
[2019-12-17 13:32] LABS: DRVVT 1:1 Mix NOT CORRECTED (CORRECTED); DRVVT Confirmation POSITIVE (NEGATIVE); PTT (LAC) Screen 40 sec (< OR = 40)
[2019-12-17] MEDS: Azithromycin 500 MG in 0.9 % Sodium Chloride 250 ML 125 MG IV (14:20)
[2019-12-17 16:00] VITALS: BP 126/59; PULSE 92; RESP 16; TEMP 37.1; O2SAT 96
--- NOTE | 2019-12-17 17:16 | HO.PM.IMPN ---
Subjective Subjective Date of Service: 12/17/19 Interval History: Pneumonia and pulmonary embolism Review of Systems Still has some shortness of breath and chest tightness seems improving Physical Exam Vital Signs: Vital Signs: Vital Signs Temp Pulse Resp BP Pulse Ox 12/17/19 16:00 98.7 F 92 16 126/59 L 96 12/17/19 12:00 97.6 F 91 18 123/66 96 12/17/19 08:00 97.8 F 99 18 140/69 H 96 12/17/19 03:54 97 F 94 16 118/66 97 12/16/19 23:57 97 F 90 16 122/58 L 96 12/16/19 19:32 98.9 F 97 18 122/62 97 Body Mass Index 32.5 Physical exam Cvs: rrr, [id number] , no murmur res: Fair air entry, slightly diminished at bases. abd: no rebound or guarding ,nt, bs present. ext pulses present , no cyanosis neuro: axo3 , nonfocal. Objective Data Current Medications Generic Name Dose Route Start Last Admin Trade Name Freq PRN Reason Stop Dose Admin Albuterol/Ipratropium 3 ml 12/15/19 20:13 Albuterol/Iprat 2.5/0.5mg 3 Ml Ampul.Neb INHALE RQ4H PRN Shortness of Breath Atorvastatin Calcium 20 mg 12/15/19 21:00 12/16/19 20:41 Atorvastatin Calcium 20 Mg Tablet PO 20 mg BEDTIME CHRISTINA Administration Enoxaparin Sodium 95 mg 12/15/19 20:00 12/17/19 09:12 Enoxaparin Sodium 100 Mg/Ml Syringe SUBCUT 95 mg Q12H CHRISTINA Administration Guaifenesin/Dextromethorphan 5 ml 12/15/19 20:13 Guaifenesin Dm 100/10/5 Ml 5 Ml Syrup PO Q4H PRN COUGH Ceftriaxone Sodium 1 gm/ 50 mls @ 100 mls/hr 12/16/19 13:00 12/17/19 13:15 Sodium Chloride IV Infused Q24H CHRISTINA Infusion Azithromycin 500 mg/ Sodium 250 mls @ 125 mls/hr 12/16/19 15:00 12/17/19 16:20 Chloride IV Infused Q24H CHRISTINA Infusion Levothyroxine Sodium 50 mcg 12/16/19 09:00 12/17/19 09:15 Levothyroxine Sodium 50 Mcg Tablet PO 50 mcg DAILY CHRISTINA Administration Metoprolol Succinate 75 mg 12/16/19 09:00 12/17/19 09:23 Metoprolol Succinate Er 50 Mg Tab.Er.24h PO 75 mg DAILY CHRISTINA Administration Protocol Omeprazole 20 mg 12/16/19 09:00 12/17/19 09:15 Omeprazole 20 Mg Capsule. PO 20 mg DAILY CHRISTINA Administration Pharmacy Consult 1 each 12/15/19 13:57 Consult Rx Perform Med Rec MISCELLANE ONCE PRN Consult order Prednisone 7.5 mg 12/17/19 09:00 12/17/19 09:15 Prednisone 5 Mg Tablet PO 7.5 mg DAILY CHRISTINA Administration Sodium Chloride 3 ml 12/16/19 00:00 12/17/19 15:50 0.9 % Sodium Chloride Flush 3 Ml Syringe IVFLUSH 3 ml QSHIFT CHRISTINA Administration Warfarin Sodium 5 mg 12/16/19 18:00 12/16/19 17:08 Warfarin Sodium 5 Mg Tablet PO 5 mg DAILY@1800 [facility] Administration Labs CBC & Chem 7: 12/17/19 05:46 12/17/19 05:46 Microbiology Microbiology Results: Microbiology 12/15/19 12:49 Blood - Venous Blood Culture - Preliminary No growth after 48 hours. 12/15/19 13:00 Blood - Venous Blood Culture - Preliminary No growth after 24 hours. Assessment and Plan (1) Chest pain: Status: Acute (2) Pulmonary embolism: Status: Acute (3) CAP (community acquired pneumonia): Status: Acute Assessment and Plan: 69-year-old woman, who is being admitted with sepsis related to community-acquired pneumonia and also found to have bilateral pulmonary emboli. 1. Sepsis. Probably secondary to pneumonia still has leukocytosis, tachycardia blood cultures pending Fever improved, still has leukocytosis Continue IV antibiotics. 2. Community-acquired pneumonia. COVID negative. Continue Rocephin and azithromycin. Continue supplemental oxygen. 3. Acute respiratory failure. Related to community-acquired pneumonia. Continue oxygen supplementation and treatment as above. 4. Bilateral pulmonary embolus. Continue Lovenox will add warfarin. Hematology jensen Dr. Day saw the patient and recommended above. Patient also had chest tightness-pulmonary embolism, troponin flat, echo ordered. Monitor PT INR INR today is 1.3. 5. Hypertension. Continue metoprolol. 6. ITP. Continue steroids monitor platelet count. As per Hematology continue prednisone. 7. Gastroesophageal reflux disease. Continue PPI. 8. Hyperlipidemia. Continue statin.
[2019-12-17] MEDS: Warfarin Sodium 5 MG TABLET PO (18:41)
[2019-12-17 20:07] VITALS: BP 133/63; RESP 20; TEMP 37; O2SAT 98
--- NOTE | 2019-12-17 20:09 | PM.HEMONCCN ---
Subjective - Subjective Patient: known to practice within the last 3 years Consult date: 12/17/19 Requesting Physician: Dr. Moura Primary Care Provider: Sg Zhong MD Medical Summary: She notes cough and dyspnea of recent onset. HPI - Consult Narrative Reason for consult: pulmonary emboli Narrative: Roseann Guido is a 69 year old female known to me for a long history of ITP now treated with prednisone. Review of Systems - Constitutional Reports lack of energy - Eyes Reports floaters - ENT Reports system reviewed and no additional complaints, except as documented - Cardiovascular Reports fast heart rate - Respiratory Reports cough - Gastrointestinal Reports constipation - Genitourinary Reports absent period - Musculoskeletal Reports decreased muscle mass - Integumentary/Breasts Skin/Breast: Reports dry skin - Neurologic Reports system reviewed and no additional complaints, except as documented - Psychiatric Reports anxiety - Endocrine Reports rapid, pounding, or irregular heartbeat - Hematologic/Lymphatic Reports easy bruising - Allergic/Immunologic Reports other Oncology Screenings - Immunizations Influenza Immunization Status: Up To Date Pneumoccocal Immunization Status: Up To Date - ECOG Performance Status ECOG Performance Status: 1 - G8 Geriatric Assessment Change in food intake over past 3 months: No decrease in food intake Weight loss during the last 3 months: No weight loss Mobility: Goes out Neuropsychological problems: No psychological problems Body Mass Index: 23 or greater Patient takes > 3 prescription drugs per day: No Patient's assessment of health status compared to others: As good Patient age: < 80 G8 Score: 17 G8 Risk Level: Low risk for early functional decline and reduced survival - Worthington Frail Scale Patient's ability to draw a clock and indicate time: No errors Number of times patient admitted to hospital in past year: 0 In general, patient describes health as: Excellent, Very Good, Good Number of activities patient requires help with: 0 to 1 Patient can count on others willing and able to meet needs: Always Patient uses 5 or more prescription medications: No Patient reports forgetfulness with taking prescription meds: No Patient reports weight loss: No Patient often feels sad or depressed: Yes Patient experiences incontinence: No # Sec for patient to walk 3m distance and return to chair: 11-20 Sec Worthington Frail Scale Score: 32 - Khorana VTE Risk Cancer Type: Other Pre-chemo platelet count >= 350,000/uL: No Hemoglobin level <10 g/dL or using RBC growth factors: Yes Pre-chemo leukocyte count > 11,000/uL: No BMI >=35: No VTE Risk Score:: 1 Khorana VTE Risk: Intermediate VTE Risk [facility] Medical History: Medical History (Last Reviewed 12/16/19 @ 11:56 by Cesario Monzon MD) Chronic ITP (idiopathic thrombocytopenia) Hypercholesterolemia Hypertension Cognitive capacity: good Functional capacity: independent ambulation Date of Last Menstrual Period: 11/30/19 Patient : No Family history: reviewed and not pertinent Smoking status: Never smoker Substance use type: does not use Last drink: Unknown Household members: spouse service: No Current occupational exposures/hazards: No Home Medications and Allergies Current Medications: Current Medications Generic Name Dose Route Start Last Admin Trade Name Freq PRN Reason Stop Dose Admin Albuterol/Ipratropium 3 ml 12/15/19 20:13 Albuterol/Iprat 2.5/0.5mg 3 Ml Ampul.Neb INHALE RQ4H PRN Shortness of Breath Atorvastatin Calcium 20 mg 12/15/19 21:00 12/16/19 20:41 Atorvastatin Calcium 20 Mg Tablet PO 20 mg BEDTIME [facility] Administration Enoxaparin Sodium 95 mg 12/15/19 20:00 12/17/19 18:41 Enoxaparin Sodium 100 Mg/Ml Syringe SUBCUT 95 mg Q12H [facility] Administration Guaifenesin/Dextromethorphan 5 ml 12/15/19 20:13 Guaifenesin Dm 100/10/5 Ml 5 Ml Syrup PO Q4H PRN COUGH Ceftriaxone Sodium 1 gm/ 50 mls @ 100 mls/hr 12/16/19 13:00 12/17/19 13:15 Sodium Chloride IV Infused Q24H [facility] Infusion Azithromycin 500 mg/ Sodium 250 mls @ 125 mls/hr 12/16/19 15:00 12/17/19 16:20 Chloride IV Infused Q24H [facility] Infusion Levothyroxine Sodium 50 mcg 12/16/19 09:00 12/17/19 09:15 Levothyroxine Sodium 50 Mcg Tablet PO 50 mcg DAILY [facility] Administration Metoprolol Succinate 75 mg 12/16/19 09:00 12/17/19 09:23 Metoprolol Succinate Er 50 Mg Tab.Er.24h PO 75 mg DAILY [facility] Administration Protocol Omeprazole 20 mg 12/16/19 09:00 12/17/19 09:15 Omeprazole 20 Mg Capsule.Dr PO 20 mg DAILY [facility] Administration Pharmacy Consult 1 each 12/15/19 13:57 Consult Rx Perform Med Rec MISCELLANE ONCE PRN Consult order Prednisone 7.5 mg 12/17/19 09:00 12/17/19 09:15 Prednisone 5 Mg Tablet PO 7.5 mg DAILY [facility] Administration Sodium Chloride 3 ml 12/16/19 00:00 12/17/19 15:50 0.9 % Sodium Chloride Flush 3 Ml Syringe IVFLUSH 3 ml QSHIFT [facility] Administration Warfarin Sodium 5 mg 12/16/19 18:00 12/17/19 18:41 Warfarin Sodium 5 Mg Tablet PO 5 mg DAILY@1800 [facility] Administration Home Medications Medication Instructions Recorded Confirmed Type levothyroxine 50 mcg PO DAILY 12/15/19 12/15/19 History metoprolol succinate 75 mg PO DAILY 12/15/19 12/15/19 History omeprazole 20 mg PO DAILY 12/15/19 12/15/19 History prednisone 5 mg PO Q3D 12/15/19 12/15/19 History prednisone 7.5 mg PO PER PKG DIR 12/15/19 12/15/19 History rosuvastatin 5 mg PO BEDTIME 12/15/19 12/15/19 History Allergies Allergy/AdvReac Type Severity Reaction Status Date / Time sulfur Allergy Unknown Verified 04/02/18 00:00 cillin family Allergy Unknown Uncoded 04/02/18 00:00 Physical Exam Vital signs: Vital Signs Temp 98.7 F 12/17/19 16:00 Pulse 92 12/17/19 16:00 Resp 16 12/17/19 16:00 BP 126/59 L 12/17/19 16:00 Pulse Ox 96 12/17/19 16:00 Intake & Output 12/17/19 12/17/19 12/18/19 06:59 18:59 06:59 Intake Total 240 / 1020 540 / 540 Output Total 200 / 600 Balance 40 / 420 540 / 540 Urine Output (Average ml/kg/hr) 0.18 0.18 Intake: Intake, Oral Amount 240 / 720 240 / 240 Intake, IV Amount 300 / 300 Azithromycin 500 mg In 0.9 % 250 / 250 Sodium Chloride 250 ml @ 125 mls/hr IV Q24H [facility] Rx#: [id number] cefTRIAXone sodium 1 gm In 0.9 50 / 50 % Sodium Chloride 50 ml @ 100 mls/hr IV Q24H [facility] Rx#: [id number] Output: Output, Urine Amount 200 / 600 Other: Lunch % Eaten 100% Number of Unmeasured Voids 1 Urine Bathroom Urine Color Straw Weight 94.4 kg - Constitutional Present: no acute distress - Routine HEENT Exam Head: Present: atraumatic Eye: Present: normal appearance ENT: Present: normal exam - Routine Neck Exam Present: supple - Routine Chest/Breast/Axilla Exam Breast: Present: Normal Exam - Routine Respiratory Exam Present: decreased breath sounds - Routine Cardiovascular Exam Cardiovascular: Present: RRR, S1, S2, tachycardia - Routine Abdominal Exam Present: normal bowel sounds - Routine Exam Patient deferred: external exam - Routine Extremities Exam Present: full ROM - Routine Back/Spine/Pelvis Exam Back/Spine: Present: full ROM - Routine Skin Exam Present: intact - Routine Neurological Exam Present: alert, oriented X3, normal reflexes - Detailed Neurological Exam: Coma Scale Verbal Response: Oriented (5) - Routine Psychiatric Exam Present: anxious Hem/Onc Consult Result - Labs CBC & Chem 7: 12/17/19 05:46 12/17/19 05:46 Labs: Short CBC 12/17/19 Range/Units 05:46 Hgb 9.8 L (12.0-16.0) g/dl Hct 31.0 L (37-47) % Plt Count 172 (160-400) X10*3/uL BMP 12/17/19 05:46 Sodium 138 Potassium 3.9 Chloride 101 Carbon Dioxide 27 BUN 15 Creatinine 0.67 Calcium 8.0 L Liver Function 12/17/19 Range/Units 05:46 Total Bilirubin 0.6 (0.0-1.0) mg/dL Direct Bilirubin 0.3 (0.0-0.5) mg/dL AST 36 H (5-31) U/L ALT 39 H (0-31) U/L Alkaline Phosphatase 64 (39-117) U/L Albumin 3.3 L (3.5-5.0) g/dL - ECG Prior ECG tracings: available for review Pacemaker function: other Assessment and Plan (1) Pulmonary embolism Problem details: multiple emboli may have lost a clotting inhibitor Status: Acute Qualifiers: Pulmonary embolism type: multiple subsegmental (without acute cor pulmonale) Qualified Code(s): I26.94 - Multiple subsegmental pulmonary emboli without acute cor pulmonale
[2019-12-17] MEDS: Atorvastatin Calcium 20 MG TABLET PO (21:04)
[2019-12-18] VITALS (9 sets, daily range): BP systolic 131–148; BP diastolic 67–88; PULSE 80–98; RESP 18–20; TEMP 36.6–36.9; O2SAT 91–98
[2019-12-18] MEDS: 0.9 % Sodium Chloride Flush 3 ML SYRINGE IVFLUSH ×3 (00:59→14:16)
[2019-12-18 06:40] LABS: Hematocrit 30.6 % (37-47); Hemoglobin 9.7 g/dl (12.0-16.0)
[2019-12-18 06:59] LABS: Anion Gap 14 (12-20); Blood Urea Nitrogen 12 mg/dL (9-16); Calcium 7.8 mg/dL (8.4-10.2); Carbon Dioxide 27 mmol/L (22-29); Chloride 103 mmol/L (96-108); Creatinine Clr Calc Pharmacy 97.5; Estimated Glomerular Filt Rate > 60; Glucose Random 108 mg/dL (60-115); Potassium 3.9 mmol/l (3.3-5.1); Sodium 140 mmol/L (135-145)
[2019-12-18 08:19] LABS: Platelet Count 208 X10*3/uL (160-400)
[2019-12-18 08:32] LABS: Alanine Aminotransferase 34 U/L (0-31); Albumin Level 3.1 g/dL (3.5-5.0); Alkaline Phosphatase 59 U/L (39-117); Aspartate Amino Transferase 27 U/L (5-31); Bilirubin Direct 0.2 mg/dL (0.0-0.5); Bilirubin Total 0.5 mg/dL (0.0-1.0); Total Protein 5.3 g/dL (6.5-8.0)
[2019-12-18] MEDS: Enoxaparin Sodium 100 MG/ML SYRINGE 95 MG SUBCUT ×2 (08:39→21:02)
[2019-12-18] MEDS: Levothyroxine Sodium 50 MCG TABLET PO (08:39)
[2019-12-18] MEDS: Metoprolol Succinate ER 50 MG TAB.ER.24H 75 MG PO (08:40)
[2019-12-18] MEDS: predniSONE 5 MG TABLET 7.5 MG PO (08:40)
[2019-12-18 08:43] LABS: INTERNATIONAL NORM RATIO 1.9 (0.9-1.1); Prothrombin Time 22.7 SEC (10.8-13.0)
--- NOTE | 2019-12-18 11:21 | MHC.CM.PN ---
Patient is receiving 2 IVABT R/T PNA and appears to still be experiencing some SOB. Patient's goal is to return home with her , with no anticipated need for services. CM will continue to follow for dc planning and the possibility of the need to adjust the dc plan.
[2019-12-18] MEDS: cefTRIAXone sodium 1 GM in 0.9 % Sodium Chloride 50 ML IV (12:32)
--- NOTE | 2019-12-18 13:15 | P.PNIM_ITS ---
Subjective Subjective Date of Service: 12/18/19 Interval History: Pneumonia, pulmonary embolism bilateral. Review of Systems Still short of breath, denies any chest pain or abdominal pain or fever or chills Physical Exam Vital Signs: Vital Signs: Vital Signs Temp Pulse Resp BP Pulse Ox 12/18/19 11:18 98.1 F 98 18 131/88 94 12/18/19 08:47 96 12/18/19 08:40 91 148/69 H 12/18/19 08:00 98.1 F 91 18 148/69 H 91 L 12/18/19 03:51 98.4 F 87 20 138/67 98 12/18/19 00:01 98.2 F 80 20 135/76 98 12/17/19 20:07 98.6 F 20 133/63 98 12/17/19 16:00 98.7 F 92 16 126/59 L 96 Body Mass Index 32.5 Physical exam: Cvs: rrr, [id number] , no murmur res: Grossly fair entry, slightly diminished at bases, few rhonchi abd: no rebound or guarding ,nt, bs present. ext pulses present , no cyanosis neuro: axo3 , nonfocal. Objective Data Current Medications Generic Name Dose Route Start Last Admin Trade Name Freq PRN Reason Stop Dose Admin Albuterol/Ipratropium 3 ml 12/15/19 20:13 Albuterol/Iprat 2.5/0.5mg 3 Ml Ampul.Neb INHALE RQ4H PRN Shortness of Breath Atorvastatin Calcium 20 mg 12/15/19 21:00 12/17/19 21:04 Atorvastatin Calcium 20 Mg Tablet PO 20 mg BEDTIME [facility] Administration Enoxaparin Sodium 95 mg 12/15/19 20:00 12/18/19 08:39 Enoxaparin Sodium 100 Mg/Ml Syringe SUBCUT 95 mg Q12H [facility] Administration Guaifenesin/Dextromethorphan 5 ml 12/15/19 20:13 Guaifenesin Dm 100/10/5 Ml 5 Ml Syrup PO Q4H PRN COUGH Ceftriaxone Sodium 1 gm/ 50 mls @ 100 mls/hr 12/16/19 13:00 12/18/19 12:32 Sodium Chloride IV 100 mls/hr Q24H [facility] Administration Azithromycin 500 mg/ Sodium 250 mls @ 125 mls/hr 12/16/19 15:00 12/17/19 16:20 Chloride IV Infused Q24H [facility] Infusion Levothyroxine Sodium 50 mcg 12/16/19 09:00 12/18/19 08:39 Levothyroxine Sodium 50 Mcg Tablet PO 50 mcg DAILY [facility] Administration Metoprolol Succinate 75 mg 12/16/19 09:00 12/18/19 08:40 Metoprolol Succinate Er 50 Mg Tab.Er.24h PO 75 mg DAILY [facility] Administration Protocol Omeprazole 20 mg 12/16/19 09:00 12/18/19 08:40 Omeprazole 20 Mg Capsule.Dr LANDRY Not Given DAILY [facility] Pharmacy Consult 1 each 12/15/19 13:57 Consult Rx Perform Med Rec MISCELLANE ONCE PRN Consult order Prednisone 7.5 mg 12/17/19 09:00 12/18/19 08:40 Prednisone 5 Mg Tablet PO 7.5 mg DAILY [facility] Administration Sodium Chloride 3 ml 12/16/19 00:00 12/18/19 08:39 0.9 % Sodium Chloride Flush 3 Ml Syringe IVFLUSH 3 ml QSHIFT [facility] Administration Warfarin Sodium 5 mg 12/16/19 18:00 12/17/19 18:41 Warfarin Sodium 5 Mg Tablet PO 5 mg DAILY@1800 [facility] Administration Labs CBC & Chem 7: 12/18/19 05:39 12/18/19 05:39 Microbiology Microbiology Results: Microbiology 12/15/19 13:00 Blood - Venous Blood Culture - Preliminary No growth after 48 hours. 12/15/19 12:49 Blood - Venous Blood Culture - Preliminary No growth after 48 hours. Assessment and Plan (1) Pulmonary embolism: Problem details: multiple emboli may have lost a clotting inhibitor Status: Acute (2) CAP (community acquired pneumonia): Status: Acute Assessment and Plan: 69-year-old woman, who is being admitted with sepsis related to community-acquired pneumonia and also found to have bilateral pulmonary emboli. 1. Sepsis. Probably secondary to pneumonia still has leukocytosis, tachycardia blood cultures pending Fever improved, still has leukocytosis Blood culture negative at 24 hr Continue IV antibiotics. 2. Community-acquired pneumonia. COVID negative. Continue Rocephin and azithromycin. Continue supplemental oxygen. 3. Acute respiratory failure. Related to community-acquired pneumonia. Continue oxygen supplementation and treatment as above. 4. Bilateral pulmonary embolus. Continue Lovenox will add warfarin. Hematology jensen Dr. Day saw the patient and recommended above. Patient also had chest tightness-pulmonary embolism, troponin flat, echo ordered. Monitor PT INR INR today is 1.9. 5. Hypertension. Continue metoprolol. 6. ITP. Continue steroids monitor platelet count. As per Hematology continue prednisone. 7. Gastroesophageal reflux disease. Continue PPI. 8. Hyperlipidemia. Continue statin. (3) Sepsis: Status: Acute (4) Chest pain: Status: Acute
[2019-12-18] MEDS: Azithromycin 500 MG in 0.9 % Sodium Chloride 250 ML 125 MG IV (14:11)
[2019-12-18] MEDS: Warfarin Sodium 5 MG TABLET PO (17:03)
[2019-12-18] MEDS: Atorvastatin Calcium 20 MG TABLET PO (21:02)
[2019-12-19] VITALS (7 sets, daily range): BP systolic 138–149; BP diastolic 63–81; PULSE 85–96; RESP 18; TEMP 36.6–37.2; O2SAT 94–99
[2019-12-19] MEDS: 0.9 % Sodium Chloride Flush 3 ML SYRINGE IVFLUSH ×4 (00:19→23:40)
[2019-12-19 04:16] LABS: Protein C Activity 93 % (70-180)
[2019-12-19 07:37] LABS: Hematocrit 33.9 % (37-47); Hemoglobin 10.6 g/dl (12.0-16.0)
[2019-12-19 08:36] LABS: Platelet Count 252 X10*3/uL (160-400)
[2019-12-19 09:08] LABS: INTERNATIONAL NORM RATIO 3.8 (0.9-1.1); Prothrombin Time 46.1 SEC (10.8-13.0)
[2019-12-19] MEDS: Metoprolol Succinate ER 50 MG TAB.ER.24H 75 MG PO (09:24)
[2019-12-19] MEDS: predniSONE 5 MG TABLET 7.5 MG PO (09:25)
[2019-12-19] MEDS: Levothyroxine Sodium 50 MCG TABLET PO (09:26)
[2019-12-19] MEDS: cefTRIAXone sodium 1 GM in 0.9 % Sodium Chloride 50 ML IV (12:05)
--- NOTE | 2019-12-19 12:49 | HO.PM.IMPN ---
Subjective Subjective Date of Service: 12/19/19 Interval History: Pneumonia, pulmonary embolism, Review of Systems Patient still short of breath but seems improving since yesterday, denies any chest pressure today. Denies any abdominal pain or fever chills. Physical Exam Vital Signs: Vital Signs: Vital Signs Temp Pulse Resp BP Pulse Ox 12/19/19 12:00 98.9 F 96 18 144/81 H 95 12/19/19 09:24 87 149/73 H 12/19/19 08:00 98.1 F 87 18 149/73 H 99 12/19/19 04:00 98.6 F 85 18 138/74 96 12/18/19 23:22 98.2 F 89 18 139/68 97 12/18/19 19:10 98 F 86 18 139/72 97 12/18/19 15:33 98.4 F 90 18 132/70 96 Body Mass Index 32.5 Physical exam: Cvs: rrr, [id number] , no murmur res: Grossly fair entry, diminished at bases. abd: no rebound or guarding ,nt, bs present. ext pulses present , no cyanosis neuro: axo3 , nonfocal. Objective Data Current Medications Generic Name Dose Route Start Last Admin Trade Name Freq PRN Reason Stop Dose Admin Albuterol/Ipratropium 3 ml 12/15/19 20:13 Albuterol/Iprat 2.5/0.5mg 3 Ml Ampul.Neb INHALE RQ4H PRN Shortness of Breath Atorvastatin Calcium 20 mg 12/15/19 21:00 12/18/19 21:02 Atorvastatin Calcium 20 Mg Tablet PO 20 mg BEDTIME [facility] Administration Enoxaparin Sodium 95 mg 12/15/19 20:00 12/19/19 09:32 Enoxaparin Sodium 100 Mg/Ml Syringe SUBCUT Not Given Q12H [facility] Guaifenesin/Dextromethorphan 5 ml 12/15/19 20:13 Guaifenesin Dm 100/10/5 Ml 5 Ml Syrup PO Q4H PRN COUGH Ceftriaxone Sodium 1 gm/ 50 mls @ 100 mls/hr 12/16/19 13:00 12/19/19 12:05 Sodium Chloride IV 100 mls/hr Q24H [facility] Administration Azithromycin 500 mg/ Sodium 250 mls @ 125 mls/hr 12/16/19 15:00 12/18/19 16:18 Chloride IV Infused Q24H [facility] Infusion Levothyroxine Sodium 50 mcg 12/16/19 09:00 12/19/19 09:26 Levothyroxine Sodium 50 Mcg Tablet PO 50 mcg DAILY [facility] Administration Metoprolol Succinate 75 mg 12/16/19 09:00 12/19/19 09:24 Metoprolol Succinate Er 50 Mg Tab.Er.24h PO 75 mg DAILY [facility] Administration Protocol Omeprazole 20 mg 12/16/19 09:00 12/19/19 09:30 Omeprazole [address] LANDRY Not Given DAILY [facility] Pharmacy Consult 1 each 12/15/19 13:57 Consult Rx Perform Med Rec MISCELLANE ONCE PRN Consult order Prednisone 7.5 mg 12/17/19 09:00 12/19/19 09:25 Prednisone 5 Mg Tablet PO 7.5 mg DAILY [facility] Administration Sodium Chloride 3 ml 12/16/19 00:00 12/19/19 09:27 0.9 % Sodium Chloride Flush 3 Ml Syringe IVFLUSH 3 ml QSHIFT [facility] Administration Warfarin Sodium 5 mg 12/16/19 18:00 12/18/19 17:03 Warfarin Sodium 5 Mg Tablet PO 5 mg DAILY@1800 [facility] Administration Labs CBC & Chem 7: 12/19/19 06:35 12/18/19 05:39 Microbiology Microbiology Results: Microbiology 12/15/19 13:00 Blood - Venous Blood Culture - Preliminary No growth after 48 hours. 12/15/19 12:49 Blood - Venous Blood Culture - Preliminary No growth after 48 hours. Assessment and Plan (1) Pulmonary embolism: Problem details: multiple emboli may have lost a clotting inhibitor Status: Acute (2) CAP (community acquired pneumonia): Status: Acute Assessment and Plan: 69-year-old woman, who is being admitted with sepsis related to community-acquired pneumonia and also found to have bilateral pulmonary emboli. 1. Sepsis. Probably secondary to pneumonia still has leukocytosis, tachycardia blood cultures pending Fever improved, still has leukocytosis Blood culture negative at 24 hr Continue IV antibiotics ceftriaxone /azithromycin day3. 2. Community-acquired pneumonia. COVID negative. Continue Rocephin and azithromycin. Continue supplemental oxygen. 3. Acute respiratory failure. Related to community-acquired pneumonia. Continue oxygen supplementation and treatment as above. 4. Bilateral pulmonary embolus. Continue Lovenox will add warfarin. Hematology jensen Dr. Day saw the patient and recommended above. Patient also had chest tightness-pulmonary embolism, troponin flat, echo ordered. Monitor PT INR INR today is 2.8 Hold Lovenox and warfarin for today, we will monitor INR in the morning. 5. Hypertension. Continue metoprolol. 6. ITP. Continue steroids monitor platelet count. As per Hematology continue prednisone.
[2019-12-19] MEDS: Azithromycin 500 MG in 0.9 % Sodium Chloride 250 ML 125 MG IV (15:56)
[2019-12-19 19:42] LABS: Anti-Thrombin III Antigen 82 % (80-120)
[2019-12-19] MEDS: Atorvastatin Calcium 20 MG TABLET PO (20:49)
[2019-12-19 22:41] LABS: Protein S Activity rflx Tot&Fr 68 % (60-140)
[2019-12-20] VITALS (7 sets, daily range): BP systolic 112–168; BP diastolic 58–95; PULSE 77–98; RESP 18–20; TEMP 36.2–37.2; O2SAT 93–99
[2019-12-20 01:22] LABS: Strep Pneumo Ag urine Not Detected (Not Detected)
[2019-12-20 07:09] LABS: INTERNATIONAL NORM RATIO 3.6 (0.9-1.1); Prothrombin Time 43.7 SEC (10.8-13.0)
[2019-12-20 07:15] LABS: Hematocrit 33.4 % (37-47); Hemoglobin 10.6 g/dl (12.0-16.0); Mean Corpuscular HGB Conc 31.7 g/dl (31.0-35.0); Mean Corpuscular Hemoglobin 31.1 pg (27.0-33.0); Mean Corpuscular Volume 97.9 fL (80-98); Mean Platelet Volume 9.1 fL (9.4-12.3); Platelet Count 262 X10*3/uL (160-400); Red Blood Count 3.41 X10*6/uL (4.20-5.50); Red Cell Distribution Width 14.1 % (11.0-16.0); White Blood Count 6.4 X10*3/uL (4.8-10.8)
[2019-12-20] MEDS: predniSONE 5 MG TABLET 7.5 MG PO (08:35)
[2019-12-20] MEDS: Levothyroxine Sodium 50 MCG TABLET PO (08:35)
[2019-12-20] MEDS: 0.9 % Sodium Chloride Flush 3 ML SYRINGE IVFLUSH ×3 (08:35→21:24)
[2019-12-20] MEDS: Metoprolol Succinate ER 100 MG TAB.ER.24H PO (10:46)
--- NOTE | 2019-12-20 11:41 | P.PNIM_ITS ---
Subjective Subjective Date of Service: 12/20/19 Interval History: pneumonia , pulm embolism Review of Systems Patient says shortness of breath is slowly improving, denies any chest pain or abdominal pain or fever or chills or urinary complaints. Physical Exam Vital Signs: Vital Signs: Vital Signs Temp Pulse Resp BP Pulse Ox 12/20/19 10:46 88 155/63 H 12/20/19 10:29 88 156/75 H 12/20/19 08:00 97.1 F 98 20 112/95 H 99 12/20/19 04:00 98.1 F 77 18 168/79 H 96 12/19/19 23:00 98.4 F 87 18 147/79 H 95 12/19/19 19:53 98 F 91 18 140/79 H 94 12/19/19 15:29 98.8 F 90 18 145/63 H 96 Body Mass Index 32.5 Physical exam: Cvs: rrr, [id number] , no murmur res: Air entry seems slightly improving, no rales or wheezing abd: no rebound or guarding ,nt, bs present. ext pulses present , no cyanosis neuro: axo3 , nonfocal. Objective Data Current Medications Generic Name Dose Route Start Last Admin Trade Name Freq PRN Reason Stop Dose Admin Albuterol/Ipratropium 3 ml 12/15/19 20:13 Albuterol/Iprat 2.5/0.5mg 3 Ml Ampul.Neb INHALE RQ4H PRN Shortness of Breath Atorvastatin Calcium 20 mg 12/15/19 21:00 12/19/19 20:49 Atorvastatin Calcium 20 Mg Tablet PO 20 mg BEDTIME [facility] Administration Enoxaparin Sodium 95 mg 12/15/19 20:00 12/19/19 09:32 Enoxaparin Sodium 100 Mg/Ml Syringe SUBCUT Not Given Q12H [facility] Guaifenesin/Dextromethorphan 5 ml 12/15/19 20:13 Guaifenesin Dm 100/10/5 Ml 5 Ml Syrup PO Q4H PRN COUGH Ceftriaxone Sodium 1 gm/ 50 mls @ 100 mls/hr 12/16/19 13:00 12/19/19 12:53 Sodium Chloride IV Infused Q24H [facility] Infusion Azithromycin 500 mg/ Sodium 250 mls @ 125 mls/hr 12/16/19 15:00 12/19/19 18:15 Chloride IV Infused Q24H [facility] Infusion Levothyroxine Sodium 50 mcg 12/16/19 09:00 12/20/19 08:35 Levothyroxine Sodium 50 Mcg Tablet PO 50 mcg DAILY [facility] Administration Metoprolol Succinate 100 mg 12/20/19 09:00 12/20/19 10:46 Metoprolol Succinate Er 100 Mg Tab.Er.24h PO 100 mg DAILY [facility] Administration Protocol Omeprazole 20 mg 12/16/19 09:00 12/20/19 08:37 Omeprazole [address] LANDRY Not Given DAILY [facility] Pharmacy Consult 1 each 12/15/19 13:57 Consult Rx Perform Med Rec MISCELLANE ONCE PRN Consult order Prednisone 7.5 mg 12/17/19 09:00 12/20/19 08:35 Prednisone 5 Mg Tablet PO 7.5 mg DAILY [facility] Administration Sodium Chloride 3 ml 12/16/19 00:00 12/20/19 08:35 0.9 % Sodium Chloride Flush 3 Ml Syringe IVFLUSH 3 ml QSHIFT [facility] Administration Warfarin Sodium 5 mg 12/16/19 18:00 12/18/19 17:03 Warfarin Sodium 5 Mg Tablet PO 5 mg DAILY@1800 [facility] Administration Labs CBC & Chem 7: 12/20/19 06:26 12/18/19 05:39 Microbiology Microbiology Results: Microbiology 12/15/19 13:00 Blood - Venous Blood Culture - Preliminary No growth after 48 hours. 12/15/19 12:49 Blood - Venous Blood Culture - Preliminary No growth after 48 hours. Assessment and Plan (1) Pulmonary embolism: Problem details: multiple emboli may have lost a clotting inhibitor Status: Acute (2) CAP (community acquired pneumonia): Status: Acute Assessment and Plan: 69-year-old woman, who is being admitted with sepsis related to community-acquired pneumonia and also found to have bilateral pulmonary emboli. 1. Sepsis. Probably secondary to pneumonia still has leukocytosis, tachycardia Fever improved, still has leukocytosis Blood culture negative at 48 hr Continue IV antibiotics ceftriaxone /azithromycin day4. 2. Community-acquired pneumonia. COVID negative. Continue Rocephin and azithromycin. Continue supplemental oxygen. 3. Acute respiratory failure. Related to community-acquired pneumonia. Continue oxygen supplementation and treatment as above. 4. Bilateral pulmonary embolus. Continue Lovenox will add warfarin. Hematology jensen Dr. Day saw the patient and recommended above. Patient also had chest tightness-pulmonary embolism, troponin flat, echo ordered. Monitor PT INR INR yesterday 3.8 , today came 3.6 Hold Lovenox and warfarin for today, we will monitor INR in the morning. 5. Hypertension. Continue metoprolol. 6. ITP. Continue steroids monitor platelet count. As per Hematology continue prednisone.
--- NOTE | 2019-12-20 11:46 | MHC.CM.PN ---
Per hospitalist, pt will DC on coumadin and will need a VNA. CM will discuss this with pt and obtain agency preferences
[2019-12-20] MEDS: cefTRIAXone sodium 1 GM in 0.9 % Sodium Chloride 50 ML IV (13:13)
[2019-12-20] MEDS: Azithromycin 500 MG in 0.9 % Sodium Chloride 250 ML 125 MG IV (15:01)
--- NOTE | 2019-12-20 16:40 | MHC.CM.PN ---
CM MET WHIT PT TO DISCUSS AFTERCARE. PT REPORTS SHE DOES NOT WANT A VISITING NURSE UPON DISCHARGE AND WOULD PREFER TO COME INTO THE ANTICOAGULATION CLINIC. 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 SHE REPORTS SHE IS UNSURE WHICH OF HER DOCTORS WILL BE FOLLOWING HER INR. BLANCA WILL MEET WITH PT AGAIN TOMORROW ONCE ANTICOAGULATION SERVICES ARE ARRANGED AND IT IS KNOWN WHICH MD WILL BE FOLLOWING
[2019-12-20] MEDS: Atorvastatin Calcium 20 MG TABLET PO (20:52)
[2019-12-21 04:00] VITALS: BP 134/59; PULSE 94; RESP 20; TEMP 36.7; O2SAT 93
[2019-12-21 05:29] LABS: Hemoglobin 10.9 g/dl (12.0-16.0)
[2019-12-21 05:55] LABS: INTERNATIONAL NORM RATIO 2.2 (0.9-1.1); Prothrombin Time 26.4 SEC (10.8-13.0)
[2019-12-21 08:00] VITALS: BP 158/81; PULSE 95; RESP 20; TEMP 36.8; O2SAT 97
[2019-12-21 08:24] VITALS: BP 158/81; PULSE 95
[2019-12-21] MEDS: predniSONE 5 MG TABLET 7.5 MG PO (08:24)
[2019-12-21] MEDS: Metoprolol Succinate ER 100 MG TAB.ER.24H PO (08:24)
[2019-12-21] MEDS: Levothyroxine Sodium 50 MCG TABLET PO (08:24)
[2019-12-21] MEDS: 0.9 % Sodium Chloride Flush 3 ML SYRINGE IVFLUSH (08:25)
--- NOTE | 2019-12-21 11:18 | PM.DS ---
DS: Providers Provider Date of admission: 12/15/19 17:36 Primary care physician: Sg Zhong MD Consults: 12/15/19 20:13 Consult to Hematology / Oncology Routine Consulting Provider: Anna Diego Reason for consultation: PE Has provider been notified: No 12/16/19 11:07 Consult to Cardiology Routine Consulting Provider: Cesario Monzon Reason for consultation: chest pain Has provider been notified: No DS: Diagnosis Discharge Diagnosis (1) Pulmonary embolism: Status: Acute Problem details: multiple emboli may have lost a clotting inhibitor (2) CAP (community acquired pneumonia): Status: Acute (3) Viral syndrome: Status: Acute (4) Nausea & vomiting: Status: Acute (5) Sepsis: Status: Acute DS: Summary Hospital Course Hospital Course: 69-year-old woman, presenting to the ER with complaints of shortness of breath, dry cough, fever, chills, nausea and vomiting since last Saturday. She denies any recent travel or sick contacts. She reports pain with deep inspiration. 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 She was noted to have an elevated white blood cell count of 13.1 with platelet count of 116. Sodium 131, bilirubin 1.1, AST 43, ALT 38, LDH 237. Troponin 18.6. Chest CTA showed bilateral pulmonary emboli with right lower lobe consolidation with air bronchograms and small partially loculated right pleural effusion. She was also noted to have a fever of 103 with tachycardia and hypoxia. She was started on IV heparin and given albuterol, Zofran, ceftriaxone, azithromycin, and Tylenol. She will be admitted for further management and treatment of sepsis secondary to community-acquired pneumonia. PAST MEDICAL HISTORY: 1. Hypothyroidism. 2. Hypertension. 3. Hyperlipidemia. 4. ITP, on prednisone. Hospital Course problem jensen section: Patient was initially admitted because of shortness of breath and found to have pneumonia and bilateral pulmonary embolism: Subsequently patient was started on IV antibiotic including ceftriaxone, azithromycin as well as patient was started on IV heparin for pulmonary embolism and added warfarin, in addition patient also received supplementary oxygen. With above management patient shortness of breath seems to be improved now she is walking comfortably without distress and does not require oxygen. Patient also had a echo done: Which shows EF for 55-60%, normal systolic function Will left ventricle mild pulmonary hypertension. Patient was seen by Hematology/cardio during this admission plan is continue warfarin upon discharge and monitor INR out patiently. INR is 2.2 today it was therapeutic from last 2 days in 3.6-3.8 range. We will adjust warfarin to 4 mg daily and then patient is to follow-up out patiently INR with PCP and Hematology and further management outpatient accordingly. In addition we will give patient p.o. antibiotics upon discharge-Ceftin and azithromycin. Patient needs to complete the remainder of the course of antibiotics. Patient also has history of ITP: Platelets were stable in to 70 range, monitor CBC with Hematology out patiently and further management accordingly. Patient will continue home dose of prednisone, and follow-up with Dr. Day outpatient. Duration of warfarin therapy and further workup for pulmonary embolism outpatient as per Dr. Day. Above management discussed with the patient in detail length she understand and in agreement with the above plan, time spent 50 minutes and 50% time spent on counseling. Significant findings: As above. Procedures performed: None. Treatment and response: As above. Complications: None. Time Spent with Patient Time attestation: Total time spent providing and/or coordinating discharge services: Physical Exam Vital Signs: Vital Signs: Vital Signs Temp Pulse Resp BP Pulse Ox 12/21/19 08:24 95 158/81 H 12/21/19 08:00 98.2 F 95 20 158/81 H 97 12/21/19 04:00 98.1 F 94 20 134/59 L 93 12/20/19 20:00 98.9 F 88 20 144/78 H 93 12/20/19 15:56 97.2 F 86 18 153/58 H 93 12/20/19 11:41 98.0 F 95 18 146/79 H 96 Body Mass Index 32.5 Physical exam: Cvs: rrr, [id number] , no murmur res: clear to auscultation ,no rhonchii or wheezing abd: no rebound or guarding ,nt, bs present. ext pulses present , no cyanosis neuro: axo3 , nonfocal. 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 Discharge Plan Discharge Patient Disposition: Home, Self-Care Referrals: Sg Zhong MD [Primary Care Provider] - Discharge Medications: New warfarin [Jantoven] 4 mg Tablet 4 mg PO DAILY@1800 Qty: 30 RF: 0 azithromycin 250 mg Tablet 250 mg PO Q24H Qty: 5 RF: 0 cefuroxime axetil 500 mg tablet 500 mg PO Q12H Qty: 10 RF: 0 Continued metoprolol succinate 50 mg tablet extended release 24 hr 75 mg PO DAILY RF: 0 levothyroxine 50 mcg tablet 50 mcg PO DAILY RF: 0 omeprazole 20 mg capsule,delayed release(DR/EC) 20 mg PO DAILY RF: 0 rosuvastatin 5 mg tablet 5 mg PO BEDTIME RF: 0 prednisone 5 mg Tablet 7.5 mg PO PER PKG DIR RF: 0 prednisone 5 mg Tablet 5 mg PO Q3D RF: 0 Discharge Orders: Discharge Order (Routine); Ordered 12/21/19 Ordered By: Izabela Moura Diet: advance to your usual diet Activity on Discharge: As tolerated Other Ambulatory Orders: Complete Blood Count no Diff (Routine) Timeframe: 2 Days Facility: [facility] - Location: Laboratory Ordered By: Izabela Moura Prothrombin Time INR (Routine) Timeframe: 2 Days Facility: [facility] - Location: Laboratory Ordered By: Izabela Moura Visit Report Forms: Patient Portal Discharge page Care Plan Goals: Says patient came with pneumonia and also found have bilateral pulmonary embolism: Patient was started on IV heparin , warfarin and antibiotics seems improving: Patient is going home with p.o. warfarin, INR is therapeutic more than 48 hours, monitor INR and CBC outpatient with PCP and further management according to PCP. Please repeat chest imaging in 3-4 week to see resolution of pneumonia. Follow-up with Hematology Dr. Day outpatient in 1-2 weeks time for further management of pulmonary embolism and ITP. Continue current home dose of prednisone for ITP Health Concerns: As above. Plan of Treatment: As above.
--- NOTE | 2019-12-21 12:12 | MHC.CM.PN ---
Patient has been medically cleared for dc to home today, no services (Patient declined VNA). Patient has her first appointment at the [facility] on 12/23/19 @ 2 PM ( MD & Patient informed and are agreeable). Second IMM addressed with Patient; She is pleased with the dc plan.
[2019-12-21] MEDS: Warfarin Sodium 5 MG TABLET PO (12:46)
[2019-12-21 16:02] LABS: Cardiolipin IgG Ab <14 GPL; Cardiolipin IgM Ab <12 MPL
[2019-12-21 16:46] LABS: Homocysteine 6.9 umol/L (<10.4)
[2019-12-23 09:17] LABS: Legionella Ag Urine Not Detected (Not Detected)
== END 2019-12-21 13:58 | disposition home or self-care (01) | DRG 871 ==
LOC: HO.ED 17:36 → HO.IMC 18:32
PROVIDERS: Nurse Practitioner Primary Care; Admitting Provider Nurse Practitioner Acute Care; Emergency Provider Internal Medicine; PCP Internal Medicine; Visit Provider Internal Medicine
DX: A41.9 Sepsis, unspecified organism (principal); I26.99 Other pulmonary embolism without acute cor pulmonale; J18.9 Pneumonia, unspecified organism; J96.00 Acute respiratory failure, unspecified whether with hypoxia or hypercapnia; D69.3 Immune thrombocytopenic purpura; E78.5 Hyperlipidemia, unspecified; I10 Essential (primary) hypertension; E03.9 Hypothyroidism, unspecified; Z20.828 Contact with and (suspected) exposure to other viral communicable diseases; Z88.0 Allergy status to penicillin; Z88.2 Allergy status to sulfonamides; Z79.01 Long term (current) use of anticoagulants; Z79.52 Long term (current) use of systemic steroids; Z79.890 Hormone replacement therapy; Z79.899 Other long term (current) drug therapy
CPT/HCPCS: 36415; 71045; 71275; 80048; 80053; 80076; 81001; 81240; 81241; 83090; 83605; 83615; 83880; 84145; 84484; 85014; 85018; 85025; 85027; 85049; 85301; 85302; 85303; 85305; 85306; 85379; 85597; 85610; 85613; 85730; 86147; 87040; 87449; 87633; 87899; 93005; 93306; 93356; 96365; 96366; 96367; 96375; 99284; 99285; J0456; J0696; J1650; J2405

== ENCOUNTER 2019-12-23 06:07 | Outpatient (REF) | payer MEDICARE, BC, SELFPAY | END 2019-12-23 06:08 | disposition home or self-care (01) | LOC: HO.LAB 06:07 | PROVIDERS: Visit Provider Internal Medicine | DX: Z20.828 Contact with and (suspected) exposure to other viral communicable diseases (principal); Z79.01 Long term (current) use of anticoagulants | CPT/HCPCS: 85610; U0003 ==

== ENCOUNTER → 2019-12-25 08:42 | Outpatient (BNVA) | payer MEDICARE, BC, SELFPAY | PROVIDERS: PCP Internal Medicine; Visit Provider Internal Medicine | DX: D69.3 Immune thrombocytopenic purpura (principal); Z79.01 Long term (current) use of anticoagulants; Z51.81 Encounter for therapeutic drug level monitoring | CPT/HCPCS: 85610; 99211 ==

== ENCOUNTER 2019-12-29 07:40 | Outpatient (REF) | payer MEDICARE, BC, SELFPAY ==
--- NOTE | 2019-12-29 | XR_ITS ---
EXAMINATION: XR LUMBOSACRAL SPINE CLINICAL INFORMATION: Low back pain over sacroiliac joints COMPARISON: None TECHNIQUE: Three views of the lumbosacral spine. FINDINGS: 5 nonrib-bearing lumbar type vertebral bodies are seen. There is 3 mm retrolisthesis of L3 on L4. Vertebral body heights are maintained. Mild loss of disc height at L3-4. Lower lumbar facet arthropathy. Neither sacroiliac joint is well seen, with joint space narrowing and sclerosis suggesting sacroiliitis. XR/XR lumbar spine 2-3V IMPRESSION: There is joint space narrowing and sclerosis of the sacroiliac joints bilaterally consistent with sacroiliitis.
--- NOTE | 2019-12-29 | XR_ITS ---
EXAMINATION: XR CHEST CLINICAL INFORMATION: Follow-up right lower lobe pneumonia COMPARISON: 12/15/2019 TECHNIQUE: 2 views of the chest were obtained. FINDINGS: Previously seen right lower lobe consolidation and right pleural fusion are improved but not entirely resolved. Small amount of residual pleural fluid is seen with mild residual left lower lobe opacity, at least in part compressive atelectasis. XR/XR chest 2V IMPRESSION: Improved but not fully resolved right lower lobe opacity. Small residual right pleural effusion.
[2019-12-29 08:12] LABS: MANUAL DIFF FLAG NO
[2019-12-29 08:19] LABS: Basophils Percent Auto 0.4 % (0-2); Eosinophils Percent Auto 0.4 % (0-4); Hematocrit 37.4 % (37-47); Hemoglobin 11.5 g/dl (12.0-16.0); Imm Gran Abs Auto 0.04 X10*3/uL (0.00-0.03); Imm Gran Pct Auto 0.4 % (0.0-0.4); Lymphocytes Absolute Auto 1.3 X10*3/uL (1.2-4.9); Lymphocytes Percent Auto 13.8 % (20-40); Mean Corpuscular HGB Conc 30.7 g/dl (31.0-35.0); Mean Corpuscular Volume 100.8 fL (80-98); Mean Platelet Volume 8.9 fL (9.4-12.3); Monocytes Absolute Auto 0.5 X10*3/uL (0.1-1.2); Neutrophils Absolute Auto 7.8 X10*3/uL (2.0-8.3); Platelet Count 296 X10*3/uL (160-400); Red Blood Count 3.71 X10*6/uL (4.20-5.50); Red Cell Distribution Width 15.4 % (11.0-16.0); White Blood Count 9.7 X10*3/uL (4.8-10.8)
== END 2019-12-29 07:41 | disposition home or self-care (01) ==
LOC: HO.LABR 07:40
PROVIDERS: PCP Internal Medicine; Referring Provider Internal Medicine; Visit Provider Internal Medicine Medical Oncology
DX: D69.3 Immune thrombocytopenic purpura (principal)
CPT/HCPCS: 36415; 71046; 72100; 85025; 85610

== ENCOUNTER → 2020-01-01 08:11 | Outpatient (BNVA) | payer MEDICARE, BC, SELFPAY | PROVIDERS: PCP Internal Medicine; Visit Provider Internal Medicine | DX: I26.99 Other pulmonary embolism without acute cor pulmonale (principal); Z51.81 Encounter for therapeutic drug level monitoring; Z79.01 Long term (current) use of anticoagulants | CPT/HCPCS: 85610; 99211 ==

== ENCOUNTER 2020-01-07 07:33 | Outpatient (REF) | payer MEDICARE, BC, SELFPAY ==
[2020-01-07 08:30] LABS: MANUAL DIFF FLAG NO
[2020-01-07 08:33] LABS: Basophils Percent Auto 0.4 % (0-2); Eosinophils Absolute Auto 0.1 X10*3/uL (0.0-0.4); Eosinophils Percent Auto 1.1 % (0-4); Hematocrit 37.3 % (37-47); Hemoglobin 11.6 g/dl (12.0-16.0); Imm Gran Abs Auto 0.02 X10*3/uL (0.00-0.03); Imm Gran Pct Auto 0.4 % (0.0-0.4); Lymphocytes Absolute Auto 1.5 X10*3/uL (1.2-4.9); Mean Corpuscular HGB Conc 31.1 g/dl (31.0-35.0); Mean Corpuscular Hemoglobin 31.2 pg (27.0-33.0); Mean Corpuscular Volume 100.3 fL (80-98); Mean Platelet Volume 9.8 fL (9.4-12.3); Monocytes Absolute Auto 0.5 X10*3/uL (0.1-1.2); Monocytes Percent Auto 9.8 % (2-11); Neutrophils Absolute Auto 2.6 X10*3/uL (2.0-8.3); Neutrophils Percent Auto 56.3 % (45-73); Platelet Count 193 X10*3/uL (160-400); Red Blood Count 3.72 X10*6/uL (4.20-5.50); Red Cell Distribution Width 16.1 % (11.0-16.0); White Blood Count 4.6 X10*3/uL (4.8-10.8)
== END 2020-01-07 07:34 | disposition home or self-care (01) ==
LOC: HO.LABR 07:33
PROVIDERS: Visit Provider Internal Medicine Medical Oncology
DX: D69.3 Immune thrombocytopenic purpura (principal); Z79.01 Long term (current) use of anticoagulants
CPT/HCPCS: 36415; 85025; 85610; 99211

== ENCOUNTER 2020-01-13 07:27 | Outpatient (REF) | payer MEDICARE, BC, SELFPAY ==
[2020-01-13 08:20] LABS: MANUAL DIFF FLAG NO
[2020-01-13 08:23] LABS: Basophils Percent Auto 0.6 % (0-2); Eosinophils Percent Auto 0.7 % (0-4); Hematocrit 37.5 % (37-47); Hemoglobin 11.9 g/dl (12.0-16.0); Imm Gran Abs Auto 0.02 X10*3/uL (0.00-0.03); Imm Gran Pct Auto 0.4 % (0.0-0.4); Lymphocytes Absolute Auto 1.5 X10*3/uL (1.2-4.9); Lymphocytes Percent Auto 27.4 % (20-40); Mean Corpuscular HGB Conc 31.7 g/dl (31.0-35.0); Mean Corpuscular Hemoglobin 31.7 pg (27.0-33.0); Mean Platelet Volume 9.5 fL (9.4-12.3); Monocytes Absolute Auto 0.6 X10*3/uL (0.1-1.2); Monocytes Percent Auto 10.4 % (2-11); Neutrophils Absolute Auto 3.3 X10*3/uL (2.0-8.3); Neutrophils Percent Auto 60.5 % (45-73); Platelet Count 190 X10*3/uL (160-400); Red Blood Count 3.75 X10*6/uL (4.20-5.50); Red Cell Distribution Width 15.6 % (11.0-16.0); White Blood Count 5.4 X10*3/uL (4.8-10.8)
[2020-01-13 08:27] LABS: INTERNATIONAL NORM RATIO 1.2 (0.9-1.1); Prothrombin Time 14.6 SEC (10.8-13.0)
== END 2020-01-13 07:28 | disposition home or self-care (01) ==
LOC: HO.LABR 07:27
PROVIDERS: PCP Internal Medicine; Visit Provider Internal Medicine Medical Oncology
DX: D69.3 Immune thrombocytopenic purpura (principal); I26.99 Other pulmonary embolism without acute cor pulmonale
CPT/HCPCS: 36415; 85025; 85610

== ENCOUNTER 2020-01-20 07:32 | Outpatient (REF) | payer MEDICARE, BC, SELFPAY ==
[2020-01-20 08:20] LABS: MANUAL DIFF FLAG NO
[2020-01-20 08:21] LABS: Basophils Percent Auto 0.5 % (0-2); Eosinophils Percent Auto 0.5 % (0-4); Hematocrit 38.8 % (37-47); Hemoglobin 12.1 g/dl (12.0-16.0); Imm Gran Abs Auto 0.02 X10*3/uL (0.00-0.03); Imm Gran Pct Auto 0.4 % (0.0-0.4); Lymphocytes Absolute Auto 1.3 X10*3/uL (1.2-4.9); Lymphocytes Percent Auto 23.7 % (20-40); Mean Corpuscular HGB Conc 31.2 g/dl (31.0-35.0); Mean Corpuscular Hemoglobin 31.2 pg (27.0-33.0); Mean Platelet Volume 9.1 fL (9.4-12.3); Monocytes Absolute Auto 0.5 X10*3/uL (0.1-1.2); Monocytes Percent Auto 8.5 % (2-11); Neutrophils Absolute Auto 3.7 X10*3/uL (2.0-8.3); Neutrophils Percent Auto 66.4 % (45-73); Platelet Count 222 X10*3/uL (160-400); Red Blood Count 3.88 X10*6/uL (4.20-5.50); Red Cell Distribution Width 15.3 % (11.0-16.0); White Blood Count 5.5 X10*3/uL (4.8-10.8)
== END 2020-01-20 07:33 | disposition home or self-care (01) ==
LOC: HO.LABO 07:32
PROVIDERS: Visit Provider Internal Medicine Medical Oncology
DX: D69.3 Immune thrombocytopenic purpura (principal)
CPT/HCPCS: 36415; 85025

== ENCOUNTER 2020-01-28 07:43 | Outpatient (REF) | payer MEDICARE, BC, SELFPAY ==
[2020-01-28 08:45] LABS: MANUAL DIFF FLAG NO
[2020-01-28 08:58] LABS: Basophils Percent Auto 0.5 % (0-2); Eosinophils Absolute Auto 0.1 X10*3/uL (0.0-0.4); Eosinophils Percent Auto 0.9 % (0-4); Hematocrit 39.1 % (37-47); Hemoglobin 12.2 g/dl (12.0-16.0); Imm Gran Abs Auto 0.03 X10*3/uL (0.00-0.03); Imm Gran Pct Auto 0.5 % (0.0-0.4); Lymphocytes Absolute Auto 1.4 X10*3/uL (1.2-4.9); Lymphocytes Percent Auto 25.3 % (20-40); Mean Corpuscular HGB Conc 31.2 g/dl (31.0-35.0); Mean Corpuscular Volume 99.5 fL (80-98); Mean Platelet Volume 9.7 fL (9.4-12.3); Monocytes Absolute Auto 0.5 X10*3/uL (0.1-1.2); Monocytes Percent Auto 9.4 % (2-11); Neutrophils Absolute Auto 3.6 X10*3/uL (2.0-8.3); Neutrophils Percent Auto 63.4 % (45-73); Platelet Count 144 X10*3/uL (160-400); Red Blood Count 3.93 X10*6/uL (4.20-5.50); Red Cell Distribution Width 14.7 % (11.0-16.0); White Blood Count 5.6 X10*3/uL (4.8-10.8)
== END 2020-01-28 07:44 | disposition home or self-care (01) ==
LOC: HO.LABR 07:43
PROVIDERS: PCP Internal Medicine; Visit Provider Internal Medicine Medical Oncology
DX: D69.3 Immune thrombocytopenic purpura (principal)
CPT/HCPCS: 36415; 85025

== ENCOUNTER 2020-02-05 07:15 | Outpatient (REF) | payer MEDICARE, BC, SELFPAY ==
[2020-02-05 07:38] LABS: Basophils Percent Auto 0.4 % (0-2); Lymphocytes Absolute Auto 1.5 X10*3/uL (1.2-4.9); MANUAL DIFF FLAG SCAN; PLT CLUMP 1; SCAN SMEAR FLAG 1
[2020-02-05 07:40] LABS: Eosinophils Absolute Auto 0.1 X10*3/uL (0.0-0.4); Hematocrit 37.3 % (37-47); Imm Gran Abs Auto 0.01 X10*3/uL (0.00-0.03); Imm Gran Pct Auto 0.2 % (0.0-0.4); Lymphocytes Percent Auto 31.7 % (20-40); Mean Corpuscular HGB Conc 32.2 g/dl (31.0-35.0); Mean Corpuscular Hemoglobin 31.6 pg (27.0-33.0); Mean Corpuscular Volume 98.2 fL (80-98); Mean Platelet Volume 9.5 fL (9.4-12.3); Monocytes Absolute Auto 0.5 X10*3/uL (0.1-1.2); Monocytes Percent Auto 10.3 % (2-11); Neutrophils Absolute Auto 2.7 X10*3/uL (2.0-8.3); Neutrophils Percent Auto 56.4 % (45-73); Platelet Count 102 X10*3/uL (160-400); Red Cell Distribution Width 14.7 % (11.0-16.0); White Blood Count 4.8 X10*3/uL (4.8-10.8)
== END 2020-02-05 07:16 | disposition home or self-care (01) ==
LOC: HO.LABR 07:15
PROVIDERS: PCP Internal Medicine; Visit Provider Internal Medicine Medical Oncology
DX: D69.3 Immune thrombocytopenic purpura (principal)
CPT/HCPCS: 36415; 85025

== ENCOUNTER 2020-02-11 07:29 | Outpatient (REF) | payer MEDICARE, BC, SELFPAY ==
[2020-02-11 08:01] LABS: Eosinophils Absolute Auto 0.1 X10*3/uL (0.0-0.4); Mean Corpuscular Volume 99.5 fL (80-98); Red Cell Distribution Width 14.8 % (11.0-16.0)
[2020-02-11 08:02] LABS: Basophils Percent Auto 0.4 % (0-2); Hematocrit 37.9 % (37-47); Imm Gran Abs Auto 0.03 X10*3/uL (0.00-0.03); Imm Gran Pct Auto 0.6 % (0.0-0.4); Lymphocytes Absolute Auto 1.4 X10*3/uL (1.2-4.9); Lymphocytes Percent Auto 28.9 % (20-40); Mean Corpuscular HGB Conc 31.7 g/dl (31.0-35.0); Mean Corpuscular Hemoglobin 31.5 pg (27.0-33.0); Mean Platelet Volume 10.8 fL (9.4-12.3); Monocytes Absolute Auto 0.5 X10*3/uL (0.1-1.2); Monocytes Percent Auto 9.8 % (2-11); Neutrophils Percent Auto 59.3 % (45-73); Red Blood Count 3.81 X10*6/uL (4.20-5.50)
[2020-02-11 08:07] LABS: Platelet Count 67 X10*3/uL (160-400)
== END 2020-02-11 07:30 | disposition home or self-care (01) ==
LOC: HO.LABR 07:29
PROVIDERS: PCP Internal Medicine; Visit Provider Internal Medicine Medical Oncology
DX: D69.3 Immune thrombocytopenic purpura (principal)
CPT/HCPCS: 36415; 85025

== ENCOUNTER 2020-02-18 07:34 | Outpatient (REF) | payer MEDICARE, BC, SELFPAY ==
[2020-02-18 08:05] LABS: MANUAL DIFF FLAG NO
[2020-02-18 08:07] LABS: Basophils Percent Auto 0.6 % (0-2); Eosinophils Percent Auto 0.3 % (0-4); Hematocrit 38.3 % (37-47); Hemoglobin 12.2 g/dl (12.0-16.0); Imm Gran Abs Auto 0.03 X10*3/uL (0.00-0.03); Imm Gran Pct Auto 0.4 % (0.0-0.4); Lymphocytes Absolute Auto 2.2 X10*3/uL (1.2-4.9); Lymphocytes Percent Auto 32.1 % (20-40); Mean Corpuscular HGB Conc 31.9 g/dl (31.0-35.0); Mean Corpuscular Hemoglobin 31.8 pg (27.0-33.0); Mean Corpuscular Volume 99.7 fL (80-98); Mean Platelet Volume 10.4 fL (9.4-12.3); Monocytes Absolute Auto 0.6 X10*3/uL (0.1-1.2); Monocytes Percent Auto 8.6 % (2-11); Neutrophils Absolute Auto 3.9 X10*3/uL (2.0-8.3); Red Blood Count 3.84 X10*6/uL (4.20-5.50); Red Cell Distribution Width 14.9 % (11.0-16.0); White Blood Count 6.8 X10*3/uL (4.8-10.8)
[2020-02-18 08:08] LABS: Platelet Count 78 X10*3/uL (160-400)
== END 2020-02-18 07:35 | disposition home or self-care (01) ==
LOC: HO.LABR 07:34
PROVIDERS: Visit Provider Internal Medicine Medical Oncology
DX: D69.3 Immune thrombocytopenic purpura (principal)
CPT/HCPCS: 36415; 85025

== ENCOUNTER 2020-02-29 07:42 | Outpatient (REF) | payer MEDICARE, BC, SELFPAY ==
[2020-02-29 08:36] LABS: Basophils Percent Auto 0.5 % (0-2); Eosinophils Percent Auto 0.4 % (0-4); Hematocrit 39.8 % (37-47); Hemoglobin 12.7 g/dl (12.0-16.0); MANUAL DIFF FLAG SCAN; Mean Corpuscular HGB Conc 31.9 g/dl (31.0-35.0); PLT CLUMP 1; SCAN SMEAR FLAG 1
[2020-02-29 08:38] LABS: Imm Gran Abs Auto 0.07 X10*3/uL (0.00-0.03); Imm Gran Pct Auto 0.9 % (0.0-0.4); Lymphocytes Percent Auto 24.8 % (20-40); Mean Corpuscular Hemoglobin 31.7 pg (27.0-33.0); Mean Corpuscular Volume 99.3 fL (80-98); Mean Platelet Volume 11.1 fL (9.4-12.3); Monocytes Absolute Auto 0.6 X10*3/uL (0.1-1.2); Monocytes Percent Auto 7.4 % (2-11); Neutrophils Absolute Auto 5.4 X10*3/uL (2.0-8.3); Red Blood Count 4.01 X10*6/uL (4.20-5.50); Red Cell Distribution Width 14.6 % (11.0-16.0); White Blood Count 8.1 X10*3/uL (4.8-10.8)
[2020-02-29 08:49] LABS: Platelet Count 74 X10*3/uL (160-400)
== END 2020-02-29 07:43 | disposition home or self-care (01) ==
LOC: HO.LABR 07:42
PROVIDERS: PCP Internal Medicine; Visit Provider Internal Medicine Medical Oncology
DX: D69.3 Immune thrombocytopenic purpura (principal)
CPT/HCPCS: 36415; 85025

== ENCOUNTER 2020-03-11 07:36 | Outpatient (REF) | payer MEDICARE, BC, SELFPAY ==
[2020-03-11 07:51] LABS: MANUAL DIFF FLAG NO
[2020-03-11 07:55] LABS: Basophils Percent Auto 0.4 % (0-2); Eosinophils Percent Auto 0.4 % (0-4); Hematocrit 40.1 % (37-47); Hemoglobin 12.9 g/dl (12.0-16.0); Imm Gran Abs Auto 0.04 X10*3/uL (0.00-0.03); Imm Gran Pct Auto 0.5 % (0.0-0.4); Lymphocytes Absolute Auto 1.8 X10*3/uL (1.2-4.9); Lymphocytes Percent Auto 23.6 % (20-40); Mean Corpuscular HGB Conc 32.2 g/dl (31.0-35.0); Mean Corpuscular Hemoglobin 32.2 pg (27.0-33.0); Mean Platelet Volume 10.1 fL (9.4-12.3); Monocytes Absolute Auto 0.6 X10*3/uL (0.1-1.2); Neutrophils Absolute Auto 5.3 X10*3/uL (2.0-8.3); Neutrophils Percent Auto 68.1 % (45-73); Red Blood Count 4.01 X10*6/uL (4.20-5.50); Red Cell Distribution Width 14.6 % (11.0-16.0); White Blood Count 7.8 X10*3/uL (4.8-10.8)
[2020-03-11 07:56] LABS: Platelet Count 98 X10*3/uL (160-400)
== END 2020-03-11 07:37 | disposition home or self-care (01) ==
LOC: HO.LAB 07:36
PROVIDERS: PCP Internal Medicine; Visit Provider Internal Medicine Medical Oncology
DX: D69.3 Immune thrombocytopenic purpura (principal)
CPT/HCPCS: 36415; 85025

== ENCOUNTER 2020-03-25 07:36 | Outpatient (REF) | payer MEDICARE, BC, SELFPAY ==
[2020-03-25 08:02] LABS: MANUAL DIFF FLAG NO
[2020-03-25 08:11] LABS: Basophils Percent Auto 0.3 % (0-2); Eosinophils Percent Auto 0.3 % (0-4); Hematocrit 40.1 % (37-47); Imm Gran Abs Auto 0.03 X10*3/uL (0.00-0.03); Imm Gran Pct Auto 0.3 % (0.0-0.4); Lymphocytes Absolute Auto 1.8 X10*3/uL (1.2-4.9); Lymphocytes Percent Auto 19.8 % (20-40); Mean Corpuscular HGB Conc 32.4 g/dl (31.0-35.0); Mean Corpuscular Hemoglobin 32.1 pg (27.0-33.0); Mean Platelet Volume 9.5 fL (9.4-12.3); Monocytes Absolute Auto 0.6 X10*3/uL (0.1-1.2); Monocytes Percent Auto 6.4 % (2-11); Neutrophils Absolute Auto 6.4 X10*3/uL (2.0-8.3); Neutrophils Percent Auto 72.9 % (45-73); Platelet Count 147 X10*3/uL (160-400); Red Blood Count 4.05 X10*6/uL (4.20-5.50); Red Cell Distribution Width 13.8 % (11.0-16.0); White Blood Count 8.9 X10*3/uL (4.8-10.8)
== END 2020-03-25 07:37 | disposition home or self-care (01) ==
LOC: HO.LABR 07:36
PROVIDERS: PCP Internal Medicine; Visit Provider Internal Medicine Medical Oncology
DX: D69.3 Immune thrombocytopenic purpura (principal)
CPT/HCPCS: 36415; 85025

== ENCOUNTER 2020-04-07 07:41 | Outpatient (REF) | payer MEDICARE, BC, SELFPAY ==
--- NOTE | ~2020-04-07 | XR_ITS ---
EXAMINATION: XR CHEST CLINICAL INFORMATION: History of PE, follow-up. COMPARISON: 12/29/2019 chest radiographs. TECHNIQUE: 2 views of the chest were obtained. FINDINGS: Minimal blunting of the right costophrenic angle is seen. The right upper lung field and left lung are clear. The heart and mediastinal structures are unremarkable. XR/XR chest 2V IMPRESSION: Minimal blunting of the right is recommended angle represents interval improvement from the previous study. This is the appearance of residual pleural scarring. A very small right pleural effusion would be less likely.
[2020-04-07 08:41] LABS: MANUAL DIFF FLAG NO
[2020-04-07 08:47] LABS: Basophils Percent Auto 0.5 % (0-2); Eosinophils Percent Auto 0.5 % (0-4); Hematocrit 40.3 % (37-47); Hemoglobin 13.1 g/dl (12.0-16.0); Imm Gran Abs Auto 0.04 X10*3/uL (0.00-0.03); Imm Gran Pct Auto 0.5 % (0.0-0.4); Lymphocytes Absolute Auto 1.6 X10*3/uL (1.2-4.9); Lymphocytes Percent Auto 18.6 % (20-40); Mean Corpuscular HGB Conc 32.5 g/dl (31.0-35.0); Mean Corpuscular Hemoglobin 32.3 pg (27.0-33.0); Mean Corpuscular Volume 99.5 fL (80-98); Mean Platelet Volume 9.4 fL (9.4-12.3); Monocytes Absolute Auto 0.6 X10*3/uL (0.1-1.2); Monocytes Percent Auto 7.4 % (2-11); Neutrophils Absolute Auto 6.1 X10*3/uL (2.0-8.3); Neutrophils Percent Auto 72.5 % (45-73); Platelet Count 193 X10*3/uL (160-400); Red Blood Count 4.05 X10*6/uL (4.20-5.50); Red Cell Distribution Width 13.3 % (11.0-16.0); White Blood Count 8.4 X10*3/uL (4.8-10.8)
== END 2020-04-07 07:42 | disposition home or self-care (01) ==
LOC: HO.LABR 07:41
PROVIDERS: Absent Provider Internal Medicine; PCP Internal Medicine; Visit Provider Internal Medicine Medical Oncology
DX: Z86.711 Personal history of pulmonary embolism (principal); D69.3 Immune thrombocytopenic purpura
CPT/HCPCS: 36415; 71046; 85025

== ENCOUNTER 2020-04-21 07:26 | Outpatient (REF) | payer MEDICARE, BC, SELFPAY ==
[2020-04-21 08:13] LABS: MANUAL DIFF FLAG NO
[2020-04-21 08:15] LABS: Basophils Percent Auto 0.4 % (0-2); Eosinophils Percent Auto 0.4 % (0-4); Hemoglobin 13.1 g/dl (12.0-16.0); Imm Gran Abs Auto 0.06 X10*3/uL (0.00-0.03); Imm Gran Pct Auto 0.6 % (0.0-0.4); Lymphocytes Absolute Auto 2.1 X10*3/uL (1.2-4.9); Lymphocytes Percent Auto 22.2 % (20-40); Mean Corpuscular Hemoglobin 32.3 pg (27.0-33.0); Mean Corpuscular Volume 101.2 fL (80-98); Mean Platelet Volume 9.1 fL (9.4-12.3); Monocytes Absolute Auto 0.7 X10*3/uL (0.1-1.2); Monocytes Percent Auto 7.6 % (2-11); Neutrophils Absolute Auto 6.6 X10*3/uL (2.0-8.3); Neutrophils Percent Auto 68.8 % (45-73); Platelet Count 200 X10*3/uL (160-400); Red Blood Count 4.05 X10*6/uL (4.20-5.50); Red Cell Distribution Width 13.3 % (11.0-16.0); White Blood Count 9.6 X10*3/uL (4.8-10.8)
== END 2020-04-21 07:27 | disposition home or self-care (01) ==
LOC: HO.LABR 07:26
PROVIDERS: PCP Internal Medicine; Visit Provider Internal Medicine Medical Oncology
DX: D69.3 Immune thrombocytopenic purpura (principal)
CPT/HCPCS: 36415; 85025

== ENCOUNTER 2020-05-05 08:16 | Outpatient (REF) | payer MEDICARE, BC, SELFPAY ==
[2020-05-05 08:56] LABS: MANUAL DIFF FLAG NO
[2020-05-05 09:03] LABS: Basophils Percent Auto 0.5 % (0-2); Eosinophils Absolute Auto 0.1 X10*3/uL (0.0-0.4); Eosinophils Percent Auto 0.6 % (0-4); Hematocrit 40.4 % (37-47); Hemoglobin 12.9 g/dl (12.0-16.0); Imm Gran Abs Auto 0.07 X10*3/uL (0.00-0.03); Imm Gran Pct Auto 0.8 % (0.0-0.4); Lymphocytes Absolute Auto 1.6 X10*3/uL (1.2-4.9); Lymphocytes Percent Auto 19.2 % (20-40); Mean Corpuscular HGB Conc 31.9 g/dl (31.0-35.0); Mean Corpuscular Hemoglobin 31.9 pg (27.0-33.0); Mean Corpuscular Volume 99.8 fL (80-98); Mean Platelet Volume 9.1 fL (9.4-12.3); Monocytes Absolute Auto 0.6 X10*3/uL (0.1-1.2); Monocytes Percent Auto 6.9 % (2-11); Neutrophils Absolute Auto 6.1 X10*3/uL (2.0-8.3); Platelet Count 225 X10*3/uL (160-400); Red Blood Count 4.05 X10*6/uL (4.20-5.50); Red Cell Distribution Width 13.4 % (11.0-16.0); White Blood Count 8.4 X10*3/uL (4.8-10.8)
== END 2020-05-05 08:17 | disposition home or self-care (01) ==
LOC: HO.LABR 08:16
PROVIDERS: PCP Internal Medicine; Visit Provider Internal Medicine Medical Oncology
DX: D69.3 Immune thrombocytopenic purpura (principal)
CPT/HCPCS: 36415; 85025

== ENCOUNTER 2020-05-19 07:19 | Outpatient (REF) | payer MEDICARE, BC, SELFPAY ==
[2020-05-19 08:17] LABS: MANUAL DIFF FLAG NO
[2020-05-19 08:36] LABS: Basophils Percent Auto 0.4 % (0-2); Eosinophils Absolute Auto 0.1 X10*3/uL (0.0-0.4); Eosinophils Percent Auto 0.9 % (0-4); Hematocrit 39.5 % (37-47); Hemoglobin 12.7 g/dl (12.0-16.0); Imm Gran Abs Auto 0.03 X10*3/uL (0.00-0.03); Imm Gran Pct Auto 0.4 % (0.0-0.4); Lymphocytes Absolute Auto 1.7 X10*3/uL (1.2-4.9); Lymphocytes Percent Auto 24.8 % (20-40); Mean Corpuscular HGB Conc 32.2 g/dl (31.0-35.0); Mean Corpuscular Hemoglobin 32.2 pg (27.0-33.0); Mean Corpuscular Volume 100.3 fL (80-98); Mean Platelet Volume 9.1 fL (9.4-12.3); Monocytes Absolute Auto 0.6 X10*3/uL (0.1-1.2); Monocytes Percent Auto 8.9 % (2-11); Neutrophils Absolute Auto 4.5 X10*3/uL (2.0-8.3); Neutrophils Percent Auto 64.6 % (45-73); Platelet Count 231 X10*3/uL (160-400); Red Blood Count 3.94 X10*6/uL (4.20-5.50); Red Cell Distribution Width 13.2 % (11.0-16.0)
== END 2020-05-19 07:20 | disposition home or self-care (01) ==
LOC: HO.LABR 07:19
PROVIDERS: PCP Internal Medicine; Visit Provider Internal Medicine Medical Oncology
DX: D69.3 Immune thrombocytopenic purpura (principal)
CPT/HCPCS: 36415; 85025

== ENCOUNTER 2020-06-02 07:23 | Outpatient (REF) | payer MEDICARE, BC, SELFPAY ==
[2020-06-02 08:20] LABS: MANUAL DIFF FLAG NO
[2020-06-02 08:34] LABS: Basophils Percent Auto 0.6 % (0-2); Eosinophils Absolute Auto 0.1 X10*3/uL (0.0-0.4); Eosinophils Percent Auto 0.9 % (0-4); Hematocrit 41.2 % (37-47); Imm Gran Abs Auto 0.03 X10*3/uL (0.00-0.03); Imm Gran Pct Auto 0.4 % (0.0-0.4); Lymphocytes Percent Auto 29.1 % (20-40); Mean Corpuscular HGB Conc 31.6 g/dl (31.0-35.0); Mean Corpuscular Hemoglobin 31.6 pg (27.0-33.0); Mean Corpuscular Volume 100.2 fL (80-98); Mean Platelet Volume 9.4 fL (9.4-12.3); Monocytes Absolute Auto 0.6 X10*3/uL (0.1-1.2); Monocytes Percent Auto 8.8 % (2-11); Neutrophils Percent Auto 60.2 % (45-73); Platelet Count 166 X10*3/uL (160-400); Red Blood Count 4.11 X10*6/uL (4.20-5.50); Red Cell Distribution Width 13.3 % (11.0-16.0); White Blood Count 6.7 X10*3/uL (4.8-10.8)
== END 2020-06-02 07:24 | disposition home or self-care (01) ==
LOC: HO.LABR 07:23
PROVIDERS: PCP Internal Medicine; Visit Provider Internal Medicine Medical Oncology
DX: D69.3 Immune thrombocytopenic purpura (principal)
CPT/HCPCS: 36415; 85025

== ENCOUNTER 2020-06-16 07:26 | Outpatient (REF) | payer MEDICARE, BC, SELFPAY ==
[2020-06-16 08:17] LABS: MANUAL DIFF FLAG NO
[2020-06-16 08:25] LABS: Basophils Percent Auto 0.4 % (0-2); Eosinophils Absolute Auto 0.1 X10*3/uL (0.0-0.4); Eosinophils Percent Auto 0.8 % (0-4); Hematocrit 38.7 % (37-47); Hemoglobin 12.3 g/dl (12.0-16.0); Imm Gran Abs Auto 0.03 X10*3/uL (0.00-0.03); Imm Gran Pct Auto 0.4 % (0.0-0.4); Lymphocytes Absolute Auto 1.7 X10*3/uL (1.2-4.9); Mean Corpuscular HGB Conc 31.8 g/dl (31.0-35.0); Mean Corpuscular Hemoglobin 31.8 pg (27.0-33.0); Mean Platelet Volume 9.8 fL (9.4-12.3); Monocytes Absolute Auto 0.7 X10*3/uL (0.1-1.2); Monocytes Percent Auto 8.9 % (2-11); Neutrophils Absolute Auto 4.8 X10*3/uL (2.0-8.3); Neutrophils Percent Auto 66.5 % (45-73); Platelet Count 123 X10*3/uL (160-400); Red Blood Count 3.87 X10*6/uL (4.20-5.50); Red Cell Distribution Width 13.4 % (11.0-16.0); White Blood Count 7.3 X10*3/uL (4.8-10.8)
== END 2020-06-16 07:27 | disposition home or self-care (01) ==
LOC: HO.LABR 07:26
PROVIDERS: PCP Internal Medicine; Visit Provider Internal Medicine Medical Oncology
DX: D69.3 Immune thrombocytopenic purpura (principal)
CPT/HCPCS: 36415; 85025

== ENCOUNTER 2020-06-30 07:03 | Outpatient (REF) | payer MEDICARE, BC, SELFPAY ==
[2020-06-30 08:17] LABS: MANUAL DIFF FLAG NO
[2020-06-30 08:54] LABS: Basophils Percent Auto 0.4 % (0-2); Eosinophils Percent Auto 0.6 % (0-4); Hematocrit 40.5 % (37-47); Hemoglobin 12.8 g/dl (12.0-16.0); Imm Gran Abs Auto 0.03 X10*3/uL (0.00-0.03); Imm Gran Pct Auto 0.4 % (0.0-0.4); Lymphocytes Absolute Auto 1.7 X10*3/uL (1.2-4.9); Lymphocytes Percent Auto 24.2 % (20-40); Mean Corpuscular HGB Conc 31.6 g/dl (31.0-35.0); Mean Corpuscular Hemoglobin 31.7 pg (27.0-33.0); Mean Corpuscular Volume 100.2 fL (80-98); Mean Platelet Volume 10.3 fL (9.4-12.3); Monocytes Absolute Auto 0.6 X10*3/uL (0.1-1.2); Neutrophils Absolute Auto 4.6 X10*3/uL (2.0-8.3); Neutrophils Percent Auto 65.4 % (45-73); Red Blood Count 4.04 X10*6/uL (4.20-5.50); Red Cell Distribution Width 13.6 % (11.0-16.0)
[2020-06-30 08:57] LABS: Platelet Count 86 X10*3/uL (160-400)
== END 2020-06-30 07:04 | disposition home or self-care (01) ==
LOC: HO.LABR 07:03
PROVIDERS: PCP Internal Medicine; Visit Provider Internal Medicine Medical Oncology
DX: D69.3 Immune thrombocytopenic purpura (principal)
CPT/HCPCS: 36415; 85025

== ENCOUNTER 2020-07-07 07:21 | Outpatient (REF) | payer MEDICARE, BC, SELFPAY ==
[2020-07-07 08:38] LABS: MANUAL DIFF FLAG NO
[2020-07-07 08:45] LABS: Basophils Percent Auto 0.6 % (0-2); Eosinophils Percent Auto 0.3 % (0-4); Hemoglobin 12.4 g/dl (12.0-16.0); Imm Gran Abs Auto 0.03 X10*3/uL (0.00-0.03); Imm Gran Pct Auto 0.4 % (0.0-0.4); Lymphocytes Percent Auto 29.3 % (20-40); Mean Corpuscular HGB Conc 31.8 g/dl (31.0-35.0); Mean Corpuscular Hemoglobin 31.9 pg (27.0-33.0); Mean Corpuscular Volume 100.3 fL (80-98); Mean Platelet Volume 10.4 fL (9.4-12.3); Monocytes Absolute Auto 0.6 X10*3/uL (0.1-1.2); Monocytes Percent Auto 8.4 % (2-11); Neutrophils Absolute Auto 4.2 X10*3/uL (2.0-8.3); Platelet Count 110 X10*3/uL (160-400); Red Blood Count 3.89 X10*6/uL (4.20-5.50); Red Cell Distribution Width 13.6 % (11.0-16.0); White Blood Count 6.9 X10*3/uL (4.8-10.8)
== END 2020-07-07 07:22 | disposition home or self-care (01) ==
LOC: HO.LABR 07:21
PROVIDERS: PCP Internal Medicine; Visit Provider Internal Medicine Medical Oncology
DX: D69.3 Immune thrombocytopenic purpura (principal)
CPT/HCPCS: 36415; 85025

== ENCOUNTER 2020-07-21 07:55 | Outpatient (REF) | payer MEDICARE, BC, SELFPAY ==
[2020-07-21 08:30] LABS: Basophils Percent Auto 0.3 % (0-2); MANUAL DIFF FLAG SCAN; Mean Platelet Volume 9.1 fL (9.4-12.3); PLT CLUMP 1; Red Cell Distribution Width 13.3 % (11.0-16.0); SCAN SMEAR FLAG 1
[2020-07-21 08:31] LABS: Eosinophils Absolute Auto 0.1 X10*3/uL (0.0-0.4); Eosinophils Percent Auto 0.5 % (0-4); Hematocrit 40.7 % (37-47); Hemoglobin 13.4 g/dl (12.0-16.0); Imm Gran Abs Auto 0.05 X10*3/uL (0.00-0.03); Imm Gran Pct Auto 0.5 % (0.0-0.4); Lymphocytes Absolute Auto 1.5 X10*3/uL (1.2-4.9); Lymphocytes Percent Auto 15.5 % (20-40); Mean Corpuscular HGB Conc 32.9 g/dl (31.0-35.0); Mean Corpuscular Hemoglobin 32.6 pg (27.0-33.0); Monocytes Absolute Auto 0.6 X10*3/uL (0.1-1.2); Monocytes Percent Auto 5.9 % (2-11); Neutrophils Absolute Auto 7.3 X10*3/uL (2.0-8.3); Neutrophils Percent Auto 77.3 % (45-73); Platelet Count 144 X10*3/uL (160-400); Red Blood Count 4.11 X10*6/uL (4.20-5.50); White Blood Count 9.4 X10*3/uL (4.8-10.8)
== END 2020-07-21 07:56 | disposition home or self-care (01) ==
LOC: HO.LABR 07:55
PROVIDERS: PCP Internal Medicine; Visit Provider Internal Medicine Medical Oncology
DX: D69.3 Immune thrombocytopenic purpura (principal)
CPT/HCPCS: 36415; 85025

== ENCOUNTER 2020-08-04 07:03 | Outpatient (REF) | payer MEDICARE, BC, SELFPAY ==
[2020-08-04 09:21] LABS: MANUAL DIFF FLAG NO
[2020-08-04 09:27] LABS: Basophils Percent Auto 0.5 % (0-2); Eosinophils Percent Auto 0.5 % (0-4); Hematocrit 38.8 % (37-47); Hemoglobin 12.3 g/dl (12.0-16.0); Imm Gran Abs Auto 0.02 X10*3/uL (0.00-0.03); Imm Gran Pct Auto 0.3 % (0.0-0.4); Lymphocytes Absolute Auto 1.9 X10*3/uL (1.2-4.9); Lymphocytes Percent Auto 30.6 % (20-40); Mean Corpuscular HGB Conc 31.7 g/dl (31.0-35.0); Mean Corpuscular Hemoglobin 31.8 pg (27.0-33.0); Mean Corpuscular Volume 100.3 fL (80-98); Mean Platelet Volume 9.4 fL (9.4-12.3); Monocytes Absolute Auto 0.6 X10*3/uL (0.1-1.2); Monocytes Percent Auto 9.8 % (2-11); Neutrophils Absolute Auto 3.7 X10*3/uL (2.0-8.3); Neutrophils Percent Auto 58.3 % (45-73); Platelet Count 176 X10*3/uL (160-400); Red Blood Count 3.87 X10*6/uL (4.20-5.50); Red Cell Distribution Width 13.5 % (11.0-16.0); White Blood Count 6.3 X10*3/uL (4.8-10.8)
== END 2020-08-04 07:04 | disposition home or self-care (01) ==
LOC: HO.LABR 07:03
PROVIDERS: PCP Internal Medicine; Visit Provider Internal Medicine Medical Oncology
DX: D69.3 Immune thrombocytopenic purpura (principal)
CPT/HCPCS: 36415; 85025

== ENCOUNTER 2020-08-18 07:31 | Outpatient (REF) | payer MEDICARE, BC, SELFPAY ==
[2020-08-18 08:20] LABS: MANUAL DIFF FLAG NO
[2020-08-18 08:23] LABS: Basophils Percent Auto 0.5 % (0-2); Eosinophils Absolute Auto 0.1 X10*3/uL (0.0-0.4); Eosinophils Percent Auto 0.6 % (0-4); Hematocrit 39.9 % (37-47); Hemoglobin 12.6 g/dl (12.0-16.0); Imm Gran Abs Auto 0.04 X10*3/uL (0.00-0.03); Imm Gran Pct Auto 0.5 % (0.0-0.4); Lymphocytes Absolute Auto 2.2 X10*3/uL (1.2-4.9); Lymphocytes Percent Auto 28.2 % (20-40); Mean Corpuscular HGB Conc 31.6 g/dl (31.0-35.0); Mean Corpuscular Hemoglobin 31.7 pg (27.0-33.0); Mean Corpuscular Volume 100.5 fL (80-98); Mean Platelet Volume 9.2 fL (9.4-12.3); Monocytes Absolute Auto 0.7 X10*3/uL (0.1-1.2); Monocytes Percent Auto 8.3 % (2-11); Neutrophils Absolute Auto 4.9 X10*3/uL (2.0-8.3); Neutrophils Percent Auto 61.9 % (45-73); Platelet Count 193 X10*3/uL (160-400); Red Blood Count 3.97 X10*6/uL (4.20-5.50); Red Cell Distribution Width 13.6 % (11.0-16.0); White Blood Count 7.9 X10*3/uL (4.8-10.8)
== END 2020-08-18 07:32 | disposition home or self-care (01) ==
LOC: HO.LABR 07:31
PROVIDERS: PCP Internal Medicine; Visit Provider Internal Medicine Medical Oncology
DX: D69.3 Immune thrombocytopenic purpura (principal)
CPT/HCPCS: 36415; 85025

== ENCOUNTER 2020-09-01 07:10 | Outpatient (REF) | payer MEDICARE, BC, SELFPAY ==
[2020-09-01 07:53] LABS: MANUAL DIFF FLAG NO
[2020-09-01 07:55] LABS: Basophils Percent Auto 0.4 % (0-2); Eosinophils Absolute Auto 0.1 X10*3/uL (0.0-0.4); Eosinophils Percent Auto 0.8 % (0-4); Hematocrit 39.7 % (37-47); Hemoglobin 12.7 g/dl (12.0-16.0); Imm Gran Abs Auto 0.05 X10*3/uL (0.00-0.03); Imm Gran Pct Auto 0.7 % (0.0-0.4); Lymphocytes Absolute Auto 1.9 X10*3/uL (1.2-4.9); Lymphocytes Percent Auto 26.4 % (20-40); Mean Corpuscular Hemoglobin 32.4 pg (27.0-33.0); Mean Corpuscular Volume 101.3 fL (80-98); Mean Platelet Volume 8.9 fL (9.4-12.3); Monocytes Absolute Auto 0.6 X10*3/uL (0.1-1.2); Monocytes Percent Auto 8.7 % (2-11); Neutrophils Absolute Auto 4.6 X10*3/uL (2.0-8.3); Platelet Count 194 X10*3/uL (160-400); Red Blood Count 3.92 X10*6/uL (4.20-5.50); Red Cell Distribution Width 13.8 % (11.0-16.0); White Blood Count 7.3 X10*3/uL (4.8-10.8)
== END 2020-09-01 07:11 | disposition home or self-care (01) ==
LOC: HO.LABR 07:10
PROVIDERS: PCP Internal Medicine; Visit Provider Internal Medicine Medical Oncology
DX: D69.3 Immune thrombocytopenic purpura (principal)
CPT/HCPCS: 36415; 85025

== ENCOUNTER 2020-09-15 07:26 | Outpatient (REF) | payer MEDICARE, BC, SELFPAY ==
[2020-09-15 08:35] LABS: MANUAL DIFF FLAG NO
[2020-09-15 08:39] LABS: Basophils Percent Auto 0.4 % (0-2); Eosinophils Absolute Auto 0.1 X10*3/uL (0.0-0.4); Hematocrit 39.4 % (37-47); Hemoglobin 12.6 g/dl (12.0-16.0); Imm Gran Abs Auto 0.04 X10*3/uL (0.00-0.03); Imm Gran Pct Auto 0.6 % (0.0-0.4); Lymphocytes Absolute Auto 1.6 X10*3/uL (1.2-4.9); Lymphocytes Percent Auto 22.9 % (20-40); Mean Corpuscular Hemoglobin 32.1 pg (27.0-33.0); Mean Corpuscular Volume 100.3 fL (80-98); Mean Platelet Volume 9.1 fL (9.4-12.3); Monocytes Absolute Auto 0.6 X10*3/uL (0.1-1.2); Monocytes Percent Auto 8.9 % (2-11); Neutrophils Absolute Auto 4.7 X10*3/uL (2.0-8.3); Neutrophils Percent Auto 66.2 % (45-73); Platelet Count 229 X10*3/uL (160-400); Red Blood Count 3.93 X10*6/uL (4.20-5.50); Red Cell Distribution Width 13.4 % (11.0-16.0); White Blood Count 7.1 X10*3/uL (4.8-10.8)
== END 2020-09-15 07:27 | disposition home or self-care (01) ==
LOC: HO.LABR 07:26
PROVIDERS: PCP Internal Medicine; Visit Provider Internal Medicine Medical Oncology
DX: D69.3 Immune thrombocytopenic purpura (principal)
CPT/HCPCS: 36415; 85025

== ENCOUNTER 2020-10-06 07:11 | Outpatient (REF) | payer MEDICARE, BC, SELFPAY ==
[2020-10-06 08:02] LABS: MANUAL DIFF FLAG NO
[2020-10-06 08:11] LABS: Basophils Percent Auto 0.5 % (0-2); Eosinophils Absolute Auto 0.1 X10*3/uL (0.0-0.4); Eosinophils Percent Auto 0.9 % (0-4); Hematocrit 40.2 % (37-47); Hemoglobin 12.7 g/dl (12.0-16.0); Imm Gran Abs Auto 0.03 X10*3/uL (0.00-0.03); Imm Gran Pct Auto 0.5 % (0.0-0.4); Lymphocytes Absolute Auto 1.6 X10*3/uL (1.2-4.9); Lymphocytes Percent Auto 24.5 % (20-40); Mean Corpuscular HGB Conc 31.6 g/dl (31.0-35.0); Mean Corpuscular Hemoglobin 31.9 pg (27.0-33.0); Mean Platelet Volume 9.1 fL (9.4-12.3); Monocytes Absolute Auto 0.6 X10*3/uL (0.1-1.2); Monocytes Percent Auto 8.7 % (2-11); Neutrophils Absolute Auto 4.3 X10*3/uL (2.0-8.3); Neutrophils Percent Auto 64.9 % (45-73); Platelet Count 205 X10*3/uL (160-400); Red Blood Count 3.98 X10*6/uL (4.20-5.50); Red Cell Distribution Width 13.3 % (11.0-16.0); White Blood Count 6.6 X10*3/uL (4.8-10.8)
== END 2020-10-06 07:12 | disposition home or self-care (01) ==
LOC: HO.LABR 07:11
PROVIDERS: PCP Internal Medicine; Visit Provider Internal Medicine Medical Oncology
DX: D69.3 Immune thrombocytopenic purpura (principal)
CPT/HCPCS: 36415; 85025

== ENCOUNTER 2020-10-27 07:27 | Outpatient (REF) | payer MEDICARE, BC, SELFPAY ==
[2020-10-27 08:10] LABS: MANUAL DIFF FLAG NO
[2020-10-27 08:14] LABS: Basophils Percent Auto 0.3 % (0-2); Eosinophils Absolute Auto 0.1 X10*3/uL (0.0-0.4); Eosinophils Percent Auto 0.9 % (0-4); Hemoglobin 12.5 g/dl (12.0-16.0); Imm Gran Abs Auto 0.01 X10*3/uL (0.00-0.03); Imm Gran Pct Auto 0.2 % (0.0-0.4); Lymphocytes Absolute Auto 1.5 X10*3/uL (1.2-4.9); Lymphocytes Percent Auto 23.4 % (20-40); Mean Corpuscular HGB Conc 32.1 g/dl (31.0-35.0); Mean Corpuscular Hemoglobin 32.1 pg (27.0-33.0); Mean Corpuscular Volume 100.3 fL (80-98); Mean Platelet Volume 9.2 fL (9.4-12.3); Monocytes Absolute Auto 0.6 X10*3/uL (0.1-1.2); Monocytes Percent Auto 9.8 % (2-11); Neutrophils Absolute Auto 4.2 X10*3/uL (2.0-8.3); Neutrophils Percent Auto 65.4 % (45-73); Platelet Count 225 X10*3/uL (160-400); Red Blood Count 3.89 X10*6/uL (4.20-5.50); Red Cell Distribution Width 13.7 % (11.0-16.0); White Blood Count 6.5 X10*3/uL (4.8-10.8)
== END 2020-10-27 07:28 | disposition home or self-care (01) ==
LOC: HO.LABR 07:27
PROVIDERS: PCP Internal Medicine; Visit Provider Internal Medicine Medical Oncology
DX: D69.3 Immune thrombocytopenic purpura (principal)
CPT/HCPCS: 36415; 85025

== ENCOUNTER 2020-11-17 07:32 | Outpatient (REF) | payer MEDICARE, BC, SELFPAY ==
[2020-11-17 07:42] LABS: MANUAL DIFF FLAG NO
[2020-11-17 07:45] LABS: Basophils Percent Auto 0.4 % (0-2); Eosinophils Absolute Auto 0.1 X10*3/uL (0.0-0.4); Eosinophils Percent Auto 0.7 % (0-4); Hematocrit 40.8 % (37-47); Hemoglobin 13.1 g/dl (12.0-16.0); Imm Gran Abs Auto 0.03 X10*3/uL (0.00-0.03); Imm Gran Pct Auto 0.4 % (0.0-0.4); Lymphocytes Absolute Auto 1.7 X10*3/uL (1.2-4.9); Lymphocytes Percent Auto 23.7 % (20-40); Mean Corpuscular HGB Conc 32.1 g/dl (31.0-35.0); Mean Corpuscular Hemoglobin 32.2 pg (27.0-33.0); Mean Corpuscular Volume 100.2 fL (80-98); Mean Platelet Volume 8.8 fL (9.4-12.3); Monocytes Absolute Auto 0.7 X10*3/uL (0.1-1.2); Monocytes Percent Auto 9.1 % (2-11); Neutrophils Absolute Auto 4.7 X10*3/uL (2.0-8.3); Neutrophils Percent Auto 65.7 % (45-73); Platelet Count 219 X10*3/uL (160-400); Red Blood Count 4.07 X10*6/uL (4.20-5.50); Red Cell Distribution Width 13.5 % (11.0-16.0); White Blood Count 7.1 X10*3/uL (4.8-10.8)
== END 2020-11-17 07:33 | disposition home or self-care (01) ==
LOC: HO.LABR 07:32
PROVIDERS: PCP Internal Medicine; Visit Provider Internal Medicine Medical Oncology
DX: D69.3 Immune thrombocytopenic purpura (principal)
CPT/HCPCS: 36415; 85025

== ENCOUNTER 2020-11-24 07:22 | Outpatient (REF) | payer MEDICARE, BC, SELFPAY ==
[2020-11-24 07:26] LABS: MANUAL DIFF FLAG NO
[2020-11-24 07:44] LABS: Basophils Percent Auto 0.5 % (0-2); Eosinophils Percent Auto 0.7 % (0-4); Hematocrit 38.9 % (37-47); Hemoglobin 12.8 g/dl (12.0-16.0); Imm Gran Abs Auto 0.02 X10*3/uL (0.00-0.03); Imm Gran Pct Auto 0.4 % (0.0-0.4); Lymphocytes Absolute Auto 1.6 X10*3/uL (1.2-4.9); Lymphocytes Percent Auto 29.6 % (20-40); Mean Corpuscular HGB Conc 32.9 g/dl (31.0-35.0); Mean Corpuscular Hemoglobin 32.9 pg (27.0-33.0); Mean Platelet Volume 8.9 fL (9.4-12.3); Monocytes Absolute Auto 0.6 X10*3/uL (0.1-1.2); Monocytes Percent Auto 10.4 % (2-11); Neutrophils Absolute Auto 3.2 X10*3/uL (2.0-8.3); Neutrophils Percent Auto 58.4 % (45-73); Platelet Count 202 X10*3/uL (160-400); Red Blood Count 3.89 X10*6/uL (4.20-5.50); Red Cell Distribution Width 13.4 % (11.0-16.0); White Blood Count 5.5 X10*3/uL (4.8-10.8)
== END 2020-11-24 07:23 | disposition home or self-care (01) ==
LOC: HO.LABR 07:22
PROVIDERS: PCP Internal Medicine; Visit Provider Internal Medicine Medical Oncology
DX: D69.3 Immune thrombocytopenic purpura (principal)
CPT/HCPCS: 36415; 85025

== ENCOUNTER 2020-12-01 07:32 | Outpatient (REF) | payer MEDICARE, BC, SELFPAY ==
[2020-12-01 07:42] LABS: MANUAL DIFF FLAG NO
[2020-12-01 08:32] LABS: Basophils Percent Auto 0.5 % (0-2); Eosinophils Absolute Auto 0.1 X10*3/uL (0.0-0.4); Eosinophils Percent Auto 1.1 % (0-4); Hematocrit 40.9 % (37-47); Imm Gran Abs Auto 0.02 X10*3/uL (0.00-0.03); Imm Gran Pct Auto 0.3 % (0.0-0.4); Lymphocytes Absolute Auto 1.6 X10*3/uL (1.2-4.9); Lymphocytes Percent Auto 24.7 % (20-40); Mean Corpuscular HGB Conc 31.8 g/dl (31.0-35.0); Mean Corpuscular Hemoglobin 31.9 pg (27.0-33.0); Mean Corpuscular Volume 100.2 fL (80-98); Mean Platelet Volume 9.1 fL (9.4-12.3); Monocytes Absolute Auto 0.7 X10*3/uL (0.1-1.2); Monocytes Percent Auto 10.4 % (2-11); Neutrophils Absolute Auto 4.1 X10*3/uL (2.0-8.3); Platelet Count 223 X10*3/uL (160-400); Red Blood Count 4.08 X10*6/uL (4.20-5.50); Red Cell Distribution Width 13.4 % (11.0-16.0); White Blood Count 6.6 X10*3/uL (4.8-10.8)
== END 2020-12-01 07:33 | disposition home or self-care (01) ==
LOC: HO.LABR 07:32
PROVIDERS: PCP Internal Medicine; Visit Provider Internal Medicine Medical Oncology
DX: D69.3 Immune thrombocytopenic purpura (principal)
CPT/HCPCS: 36415; 85025

== ENCOUNTER 2020-12-15 07:47 | Outpatient (REF) | payer MEDICARE, BC, SELFPAY ==
[2020-12-15 07:52] LABS: MANUAL DIFF FLAG NO
[2020-12-15 07:53] LABS: Basophils Percent Auto 0.5 % (0-2); Eosinophils Absolute Auto 0.1 X10*3/uL (0.0-0.4); Eosinophils Percent Auto 1.2 % (0-4); Hemoglobin 13.2 g/dl (12.0-16.0); Imm Gran Abs Auto 0.01 X10*3/uL (0.00-0.03); Imm Gran Pct Auto 0.2 % (0.0-0.4); Lymphocytes Absolute Auto 1.5 X10*3/uL (1.2-4.9); Lymphocytes Percent Auto 25.1 % (20-40); Mean Corpuscular HGB Conc 32.2 g/dl (31.0-35.0); Mean Corpuscular Volume 99.5 fL (80-98); Mean Platelet Volume 8.5 fL (9.4-12.3); Monocytes Absolute Auto 0.6 X10*3/uL (0.1-1.2); Monocytes Percent Auto 10.2 % (2-11); Neutrophils Absolute Auto 3.7 X10*3/uL (2.0-8.3); Neutrophils Percent Auto 62.8 % (45-73); Platelet Count 206 X10*3/uL (160-400); Red Blood Count 4.12 X10*6/uL (4.20-5.50); Red Cell Distribution Width 13.2 % (11.0-16.0); White Blood Count 5.9 X10*3/uL (4.8-10.8)
== END 2020-12-15 07:48 | disposition home or self-care (01) ==
LOC: HO.LABR 07:47
PROVIDERS: PCP Internal Medicine; Visit Provider Internal Medicine Medical Oncology
DX: D69.3 Immune thrombocytopenic purpura (principal)
CPT/HCPCS: 36415; 85025

== ENCOUNTER 2020-12-29 15:32 | Outpatient (REF) | payer MEDICARE, BC, SELFPAY ==
[2020-12-29 08:14] LABS: Basophils Percent Auto 0.5 % (0-2); Eosinophils Percent Auto 0.5 % (0-4); Hematocrit 40.2 % (37.0-47.0); Hemoglobin 13.1 g/dl (12.0-16.0); Imm Gran Abs Auto 0.01 X10*3/uL (0.00-0.03); Imm Gran Pct Auto 0.2 % (0.0-0.4); Lymphocytes Absolute Auto 1.2 X10*3/uL (1.2-4.9); Lymphocytes Percent Auto 21.1 % (20-40); MANUAL DIFF FLAG NO; Mean Corpuscular HGB Conc 32.6 g/dl (31.0-35.0); Mean Corpuscular Hemoglobin 32.2 pg (27.0-33.0); Mean Corpuscular Volume 98.8 fL (80.0-98.0); Monocytes Absolute Auto 0.5 X10*3/uL (0.1-1.2); Monocytes Percent Auto 8.9 % (2-11); Neutrophils Percent Auto 68.8 % (45-73); Platelet Count 205 X10*3/uL (160-400); Red Blood Count 4.07 X10*6/uL (4.20-5.50); Red Cell Distribution Width 13.2 % (11.0-16.0); White Blood Count 5.9 X10*3/uL (4.8-10.8)
== END 2020-12-29 15:33 | disposition home or self-care (01) ==
LOC: HO.LAB 15:32
PROVIDERS: PCP Internal Medicine; Visit Provider Internal Medicine Medical Oncology
DX: D69.3 Immune thrombocytopenic purpura (principal)
CPT/HCPCS: 36415; 85025

== ENCOUNTER 2021-01-19 07:36 | Outpatient (REF) | payer MEDICARE, BC, SELFPAY ==
[2021-01-19 07:52] LABS: MANUAL DIFF FLAG NO
[2021-01-19 08:33] LABS: Basophils Percent Auto 0.6 % (0-2); Eosinophils Absolute Auto 0.1 X10*3/uL (0.0-0.4); Eosinophils Percent Auto 0.8 % (0-4); Hemoglobin 13.3 g/dl (12.0-16.0); Imm Gran Abs Auto 0.02 X10*3/uL (0.00-0.03); Imm Gran Pct Auto 0.3 % (0.0-0.4); Lymphocytes Absolute Auto 1.6 X10*3/uL (1.2-4.9); Lymphocytes Percent Auto 24.5 % (20-40); Mean Corpuscular HGB Conc 31.7 g/dl (31.0-35.0); Mean Corpuscular Hemoglobin 31.6 pg (27.0-33.0); Mean Corpuscular Volume 99.8 fL (80.0-98.0); Mean Platelet Volume 9.6 fL (9.4-12.3); Monocytes Absolute Auto 0.7 X10*3/uL (0.1-1.2); Monocytes Percent Auto 10.1 % (2-11); Neutrophils Absolute Auto 4.1 x10*3/uL (2.0-8.3); Neutrophils Percent Auto 63.7 % (45-73); Platelet Count 216 X10*3/uL (160-400); Red Blood Count 4.21 X10*6/uL (4.20-5.50); Red Cell Distribution Width 13.3 % (11.0-16.0); White Blood Count 6.5 X10*3/uL (4.8-10.8)
== END 2021-01-19 07:37 | disposition home or self-care (01) ==
LOC: HO.LABR 07:36
PROVIDERS: PCP Internal Medicine; Visit Provider Internal Medicine Medical Oncology
DX: D69.3 Immune thrombocytopenic purpura (principal)
CPT/HCPCS: 36415; 85025

== ENCOUNTER 2021-02-13 06:41 | Outpatient (REF) | payer MEDICARE, BC, SELFPAY ==
[2021-02-13 06:50] LABS: MANUAL DIFF FLAG NO
[2021-02-13 07:19] LABS: Basophils Percent Auto 0.5 % (0-2); Eosinophils Absolute Auto 0.1 X10*3/uL (0.0-0.4); Eosinophils Percent Auto 0.9 % (0-4); Hematocrit 40.9 % (37.0-47.0); Hemoglobin 13.1 g/dl (12.0-16.0); Imm Gran Abs Auto 0.01 X10*3/uL (0.00-0.03); Imm Gran Pct Auto 0.2 % (0.0-0.4); Lymphocytes Absolute Auto 1.8 X10*3/uL (1.2-4.9); Lymphocytes Percent Auto 31.2 % (20-40); Mean Corpuscular Hemoglobin 32.5 pg (27.0-33.0); Mean Corpuscular Volume 101.5 fL (80.0-98.0); Mean Platelet Volume 9.3 fL (9.4-12.3); Monocytes Absolute Auto 0.7 X10*3/uL (0.1-1.2); Monocytes Percent Auto 11.4 % (2-11); Neutrophils Absolute Auto 3.2 x10*3/uL (2.0-8.3); Neutrophils Percent Auto 55.8 % (45-73); Platelet Count 212 X10*3/uL (160-400); Red Blood Count 4.03 X10*6/uL (4.20-5.50); Red Cell Distribution Width 13.3 % (11.0-16.0); White Blood Count 5.7 X10*3/uL (4.8-10.8)
== END 2021-02-13 06:42 | disposition home or self-care (01) ==
LOC: HO.LABR 06:41
PROVIDERS: Internal Medicine; PCP Internal Medicine; Visit Provider Internal Medicine Medical Oncology
DX: Z20.822 Contact with and (suspected) exposure to COVID-19 (principal); D69.3 Immune thrombocytopenic purpura
CPT/HCPCS: 36415; 85025; C9803; U0003; U0005

== ENCOUNTER 2021-03-08 07:07 | Outpatient (REF) | payer MEDICARE, BC, SELFPAY ==
[2021-03-08 07:30] LABS: MANUAL DIFF FLAG NO
[2021-03-08 08:02] LABS: Basophils Percent Auto 0.5 % (0-2); Eosinophils Absolute Auto 0.1 X10*3/uL (0.0-0.4); Eosinophils Percent Auto 0.8 % (0-4); Hematocrit 41.5 % (37.0-47.0); Hemoglobin 13.3 g/dl (12.0-16.0); Imm Gran Abs Auto 0.02 X10*3/uL (0.00-0.03); Imm Gran Pct Auto 0.3 % (0.0-0.4); Lymphocytes Absolute Auto 1.6 X10*3/uL (1.2-4.9); Mean Corpuscular Hemoglobin 32.5 pg (27.0-33.0); Mean Corpuscular Volume 101.5 fL (80.0-98.0); Mean Platelet Volume 9.4 fL (9.4-12.3); Monocytes Absolute Auto 0.6 X10*3/uL (0.1-1.2); Monocytes Percent Auto 10.4 % (2-11); Neutrophils Absolute Auto 3.7 x10*3/uL (2.0-8.3); Platelet Count 189 X10*3/uL (160-400); Red Blood Count 4.09 X10*6/uL (4.20-5.50); Red Cell Distribution Width 13.1 % (11.0-16.0)
== END 2021-03-08 07:08 | disposition home or self-care (01) ==
LOC: HO.LABR 07:07
PROVIDERS: PCP Internal Medicine; Visit Provider Internal Medicine Medical Oncology
DX: D69.3 Immune thrombocytopenic purpura (principal)
CPT/HCPCS: 36415; 85025

== ENCOUNTER 2021-03-16 07:07 | Outpatient (REF) | payer MEDICARE, BC, SELFPAY ==
[2021-03-16 07:23] LABS: MANUAL DIFF FLAG NO
[2021-03-16 07:49] LABS: Basophils Percent Auto 0.5 % (0-2); Eosinophils Percent Auto 0.5 % (0-4); Hemoglobin 12.9 g/dl (12.0-16.0); Imm Gran Abs Auto 0.02 X10*3/uL (0.00-0.03); Imm Gran Pct Auto 0.4 % (0.0-0.4); Lymphocytes Absolute Auto 1.6 X10*3/uL (1.2-4.9); Lymphocytes Percent Auto 28.9 % (20-40); Mean Corpuscular HGB Conc 31.5 g/dl (31.0-35.0); Mean Corpuscular Hemoglobin 31.8 pg (27.0-33.0); Mean Platelet Volume 9.3 fL (9.4-12.3); Monocytes Absolute Auto 0.7 X10*3/uL (0.1-1.2); Monocytes Percent Auto 12.1 % (2-11); Neutrophils Absolute Auto 3.1 x10*3/uL (2.0-8.3); Neutrophils Percent Auto 57.6 % (45-73); Platelet Count 196 X10*3/uL (160-400); Red Blood Count 4.06 X10*6/uL (4.20-5.50); Red Cell Distribution Width 13.1 % (11.0-16.0); White Blood Count 5.5 X10*3/uL (4.8-10.8)
== END 2021-03-16 07:08 | disposition home or self-care (01) ==
LOC: HO.LABR 07:07
PROVIDERS: PCP Internal Medicine; Visit Provider Internal Medicine Medical Oncology
DX: D69.3 Immune thrombocytopenic purpura (principal)
CPT/HCPCS: 36415; 85025

== ENCOUNTER 2021-03-22 07:33 | Outpatient (REF) | payer MEDICARE, BC, SELFPAY ==
[2021-03-22 07:27] LABS: MANUAL DIFF FLAG NO
[2021-03-22 08:03] LABS: Basophils Percent Auto 0.5 % (0-2); Eosinophils Percent Auto 0.7 % (0-4); Hematocrit 39.1 % (37.0-47.0); Hemoglobin 12.5 g/dl (12.0-16.0); Imm Gran Abs Auto 0.01 X10*3/uL (0.00-0.03); Imm Gran Pct Auto 0.2 % (0.0-0.4); Lymphocytes Absolute Auto 1.5 X10*3/uL (1.2-4.9); Lymphocytes Percent Auto 26.7 % (20-40); Mean Corpuscular Hemoglobin 32.1 pg (27.0-33.0); Mean Corpuscular Volume 100.3 fL (80.0-98.0); Mean Platelet Volume 9.2 fL (9.4-12.3); Monocytes Absolute Auto 0.7 X10*3/uL (0.1-1.2); Neutrophils Absolute Auto 3.3 x10*3/uL (2.0-8.3); Neutrophils Percent Auto 59.9 % (45-73); Platelet Count 192 X10*3/uL (160-400); Red Cell Distribution Width 13.2 % (11.0-16.0); White Blood Count 5.6 X10*3/uL (4.8-10.8)
== END 2021-03-22 07:34 | disposition home or self-care (01) ==
LOC: HO.LABR 07:33
PROVIDERS: PCP Internal Medicine; Visit Provider Internal Medicine Medical Oncology
DX: D69.3 Immune thrombocytopenic purpura (principal)
CPT/HCPCS: 36415; 85025

== ENCOUNTER 2021-04-04 07:11 | Outpatient (REF) | payer MEDICARE, BC, SELFPAY ==
[2021-04-04 07:23] LABS: MANUAL DIFF FLAG NO
[2021-04-04 08:11] LABS: Basophils Percent Auto 0.4 % (0-2); Eosinophils Percent Auto 0.8 % (0-4); Hematocrit 39.5 % (37.0-47.0); Hemoglobin 12.7 g/dl (12.0-16.0); Imm Gran Abs Auto 0.02 X10*3/uL (0.00-0.03); Imm Gran Pct Auto 0.4 % (0.0-0.4); Lymphocytes Absolute Auto 1.5 X10*3/uL (1.2-4.9); Mean Corpuscular HGB Conc 32.2 g/dl (31.0-35.0); Mean Corpuscular Hemoglobin 32.4 pg (27.0-33.0); Mean Corpuscular Volume 100.8 fL (80.0-98.0); Mean Platelet Volume 9.2 fL (9.4-12.3); Monocytes Absolute Auto 0.6 X10*3/uL (0.1-1.2); Monocytes Percent Auto 12.7 % (2-11); Neutrophils Absolute Auto 2.8 x10*3/uL (2.0-8.3); Neutrophils Percent Auto 55.7 % (45-73); Platelet Count 195 X10*3/uL (160-400); Red Blood Count 3.92 X10*6/uL (4.20-5.50); Red Cell Distribution Width 13.2 % (11.0-16.0)
[2021-04-04 08:34] LABS: Alanine Aminotransferase 26 U/L (0-31); Alkaline Phosphatase 52 U/L (39-117); Anion Gap 11 (12-20); Aspartate Amino Transferase 26 U/L (5-31); Bilirubin Total 0.4 mg/dL (0.0-1.0); Blood Urea Nitrogen 13 mg/dL (9-16); Calcium 9.2 mg/dL (8.4-10.2); Carbon Dioxide 28 mmol/L (22-29); Chloride 108 mmol/L (96-108); Estimated Glomerular Filt Rate > 60; Glucose Random 106 mg/dL (60-115); Potassium 4.7 mmol/L (3.3-5.1); Sodium 142 mmol/L (135-145); Total Protein 6.4 g/dL (6.5-8.0)
[2021-04-04 08:50] LABS: Erythrocyte Sedimentation Rate 16 MM/HR (0-20)
[2021-04-04 09:00] LABS: Vitamin B12 474 pg/mL (200-900)
== END 2021-04-04 07:12 | disposition home or self-care (01) ==
LOC: HO.LAB 07:11
PROVIDERS: PCP Internal Medicine; Visit Provider Internal Medicine Medical Oncology
DX: D69.3 Immune thrombocytopenic purpura (principal)
CPT/HCPCS: 36415; 80053; 82607; 85025; 85652

== ENCOUNTER 2021-04-12 | Outpatient (REF) | payer MEDICARE, BC, SELFPAY ==
[2021-04-12 07:30] LABS: MANUAL DIFF FLAG NO
[2021-04-12 08:01] LABS: Basophils Percent Auto 0.4 % (0-2); Eosinophils Percent Auto 0.8 % (0-4); Hematocrit 40.1 % (37.0-47.0); Hemoglobin 12.8 g/dl (12.0-16.0); Imm Gran Abs Auto 0.01 X10*3/uL (0.00-0.03); Imm Gran Pct Auto 0.2 % (0.0-0.4); Lymphocytes Absolute Auto 1.4 X10*3/uL (1.2-4.9); Lymphocytes Percent Auto 28.6 % (20-40); Mean Corpuscular HGB Conc 31.9 g/dl (31.0-35.0); Mean Corpuscular Hemoglobin 31.7 pg (27.0-33.0); Mean Corpuscular Volume 99.3 fL (80.0-98.0); Mean Platelet Volume 9.2 fL (9.4-12.3); Monocytes Absolute Auto 0.6 X10*3/uL (0.1-1.2); Monocytes Percent Auto 11.4 % (2-11); Neutrophils Absolute Auto 2.8 x10*3/uL (2.0-8.3); Neutrophils Percent Auto 58.6 % (45-73); Platelet Count 185 X10*3/uL (160-400); Red Blood Count 4.04 X10*6/uL (4.20-5.50); Red Cell Distribution Width 13.2 % (11.0-16.0); White Blood Count 4.8 X10*3/uL (4.8-10.8)
== END 2021-04-12 00:01 ==
LOC: HO.LABR
PROVIDERS: PCP Internal Medicine; Visit Provider Internal Medicine Medical Oncology
DX: D69.3 Immune thrombocytopenic purpura (principal)
CPT/HCPCS: 36415; 85025

== ENCOUNTER 2021-05-03 07:13 | Outpatient (REF) | payer MEDICARE, BC, SELFPAY ==
[2021-05-03 07:27] LABS: MANUAL DIFF FLAG NO
[2021-05-03 08:02] LABS: Basophils Percent Auto 0.4 % (0-2); Eosinophils Percent Auto 0.6 % (0-4); Hematocrit 39.5 % (37.0-47.0); Hemoglobin 12.3 g/dl (12.0-16.0); Imm Gran Abs Auto 0.02 X10*3/uL (0.00-0.03); Imm Gran Pct Auto 0.4 % (0.0-0.4); Lymphocytes Absolute Auto 1.4 X10*3/uL (1.2-4.9); Lymphocytes Percent Auto 27.8 % (20-40); Mean Corpuscular HGB Conc 31.1 g/dl (31.0-35.0); Mean Corpuscular Hemoglobin 31.3 pg (27.0-33.0); Mean Corpuscular Volume 100.5 fL (80.0-98.0); Monocytes Absolute Auto 0.6 X10*3/uL (0.1-1.2); Monocytes Percent Auto 11.5 % (2-11); Neutrophils Percent Auto 59.3 % (45-73); Platelet Count 175 X10*3/uL (160-400); Red Blood Count 3.93 X10*6/uL (4.20-5.50)
== END 2021-05-03 07:14 | disposition home or self-care (01) ==
LOC: HO.LABR 07:13
PROVIDERS: PCP Internal Medicine; Visit Provider Internal Medicine Medical Oncology
DX: D69.3 Immune thrombocytopenic purpura (principal)
CPT/HCPCS: 36415; 85025

== ENCOUNTER 2021-06-01 07:20 | Outpatient (REF) | payer MEDICARE, BC, SELFPAY ==
[2021-06-01 08:09] LABS: Basophils Percent Auto 0.4 % (0-2); Eosinophils Percent Auto 0.4 % (0-4); Hematocrit 37.8 % (37.0-47.0); Hemoglobin 12.1 g/dl (12.0-16.0); Imm Gran Abs Auto 0.02 X10*3/uL (0.00-0.03); Imm Gran Pct Auto 0.4 % (0.0-0.4); Lymphocytes Absolute Auto 1.5 X10*3/uL (1.2-4.9); Lymphocytes Percent Auto 27.9 % (20-40); MANUAL DIFF FLAG SCAN; Mean Corpuscular Hemoglobin 31.8 pg (27.0-33.0); Mean Corpuscular Volume 99.2 fL (80.0-98.0); Mean Platelet Volume 11.5 fL (9.4-12.3); Monocytes Absolute Auto 0.7 X10*3/uL (0.1-1.2); Monocytes Percent Auto 12.2 % (2-11); Neutrophils Absolute Auto 3.2 x10*3/uL (2.0-8.3); Neutrophils Percent Auto 58.7 % (45-73); PLT CLUMP 1; Red Blood Count 3.81 X10*6/uL (4.20-5.50); Red Cell Distribution Width 13.1 % (11.0-16.0); SCAN SMEAR FLAG 1
[2021-06-01 08:39] LABS: Platelet Count 160 X10*3/uL (160-400); SLIDE REVIEW VERIFIED; White Blood Count 5.5 X10*3/uL (4.8-10.8)
== END 2021-06-01 07:21 | disposition home or self-care (01) ==
LOC: HO.LABR 07:20
PROVIDERS: PCP Internal Medicine; Visit Provider Internal Medicine Medical Oncology
DX: D69.3 Immune thrombocytopenic purpura (principal)
CPT/HCPCS: 36415; 85025

== ENCOUNTER 2021-06-22 07:07 | Outpatient (REF) | payer MEDICARE, BC, SELFPAY ==
[2021-06-22 07:21] LABS: MANUAL DIFF FLAG NO
[2021-06-22 07:31] LABS: Basophils Percent Auto 0.8 % (0-2); Eosinophils Absolute Auto 0.1 X10*3/uL (0.0-0.4); Hemoglobin 12.9 g/dl (12.0-16.0); Imm Gran Abs Auto 0.02 X10*3/uL (0.00-0.03); Imm Gran Pct Auto 0.4 % (0.0-0.4); Lymphocytes Absolute Auto 1.5 X10*3/uL (1.2-4.9); Mean Corpuscular HGB Conc 32.3 g/dl (31.0-35.0); Mean Corpuscular Hemoglobin 31.8 pg (27.0-33.0); Mean Corpuscular Volume 98.5 fL (80.0-98.0); Mean Platelet Volume 10.2 fL (9.4-12.3); Monocytes Absolute Auto 0.6 X10*3/uL (0.1-1.2); Monocytes Percent Auto 11.4 % (2-11); Neutrophils Percent Auto 57.4 % (45-73); Platelet Count 155 X10*3/uL (160-400); Red Blood Count 4.06 X10*6/uL (4.20-5.50); Red Cell Distribution Width 13.1 % (11.0-16.0); White Blood Count 5.3 X10*3/uL (4.8-10.8)
== END 2021-06-22 07:08 | disposition home or self-care (01) ==
LOC: HO.LABR 07:07
PROVIDERS: PCP Internal Medicine; Visit Provider Internal Medicine Medical Oncology
DX: D69.3 Immune thrombocytopenic purpura (principal)
CPT/HCPCS: 36415; 85025

== ENCOUNTER 2021-07-06 08:19 | Outpatient (REF) | payer MEDICARE, BC, SELFPAY ==
[2021-07-06 07:47] LABS: MANUAL DIFF FLAG NO
[2021-07-06 08:03] LABS: Basophils Percent Auto 0.6 % (0-2); Eosinophils Percent Auto 0.8 % (0-4); Hematocrit 38.6 % (37.0-47.0); Hemoglobin 12.4 g/dl (12.0-16.0); Imm Gran Abs Auto 0.02 X10*3/uL (0.00-0.03); Imm Gran Pct Auto 0.4 % (0.0-0.4); Lymphocytes Absolute Auto 1.7 X10*3/uL (1.2-4.9); Lymphocytes Percent Auto 33.6 % (20-40); Mean Corpuscular HGB Conc 32.1 g/dl (31.0-35.0); Mean Corpuscular Hemoglobin 31.1 pg (27.0-33.0); Mean Corpuscular Volume 96.7 fL (80.0-98.0); Mean Platelet Volume 9.8 fL (9.4-12.3); Monocytes Absolute Auto 0.6 X10*3/uL (0.1-1.2); Monocytes Percent Auto 12.8 % (2-11); Neutrophils Absolute Auto 2.6 x10*3/uL (2.0-8.3); Neutrophils Percent Auto 51.8 % (45-73); Platelet Count 177 X10*3/uL (160-400); Red Blood Count 3.99 X10*6/uL (4.20-5.50); Red Cell Distribution Width 13.2 % (11.0-16.0)
== END 2021-07-06 08:20 | disposition home or self-care (01) ==
LOC: HO.LABR 08:19
PROVIDERS: PCP Internal Medicine; Visit Provider Internal Medicine Medical Oncology
DX: D69.3 Immune thrombocytopenic purpura (principal)
CPT/HCPCS: 36415; 85025

== ENCOUNTER 2021-07-27 07:16 | Outpatient (REF) | payer MEDICARE, BC, SELFPAY ==
[2021-07-27 07:21] LABS: MANUAL DIFF FLAG NO
[2021-07-27 07:47] LABS: Basophils Percent Auto 0.6 % (0-2); Eosinophils Percent Auto 0.8 % (0-4); Hematocrit 39.8 % (37.0-47.0); Hemoglobin 12.8 g/dl (12.0-16.0); Imm Gran Abs Auto 0.02 X10*3/uL (0.00-0.03); Imm Gran Pct Auto 0.4 % (0.0-0.4); Lymphocytes Absolute Auto 1.6 X10*3/uL (1.2-4.9); Lymphocytes Percent Auto 32.1 % (20-40); Mean Corpuscular HGB Conc 32.2 g/dl (31.0-35.0); Mean Corpuscular Hemoglobin 31.7 pg (27.0-33.0); Mean Corpuscular Volume 98.5 fL (80.0-98.0); Mean Platelet Volume 10.3 fL (9.4-12.3); Monocytes Absolute Auto 0.6 X10*3/uL (0.1-1.2); Monocytes Percent Auto 11.6 % (2-11); Neutrophils Absolute Auto 2.8 x10*3/uL (2.0-8.3); Neutrophils Percent Auto 54.5 % (45-73); Platelet Count 160 X10*3/uL (160-400); Red Blood Count 4.04 X10*6/uL (4.20-5.50); Red Cell Distribution Width 13.5 % (11.0-16.0); White Blood Count 5.1 X10*3/uL (4.8-10.8)
== END 2021-07-27 07:17 | disposition home or self-care (01) ==
LOC: HO.LABR 07:16
PROVIDERS: PCP Internal Medicine; Visit Provider Internal Medicine Medical Oncology
DX: D69.3 Immune thrombocytopenic purpura (principal)
CPT/HCPCS: 36415; 85025

== ENCOUNTER 2021-08-17 07:38 | Outpatient (REF) | payer MEDICARE, BC, SELFPAY ==
[2021-08-17 07:36] LABS: MANUAL DIFF FLAG NO
[2021-08-17 08:53] LABS: Basophils Percent Auto 0.5 % (0-2); Eosinophils Percent Auto 0.7 % (0-4); Hematocrit 38.1 % (37.0-47.0); Hemoglobin 12.2 g/dl (12.0-16.0); Imm Gran Abs Auto 0.02 X10*3/uL (0.00-0.03); Imm Gran Pct Auto 0.4 % (0.0-0.4); Lymphocytes Absolute Auto 1.5 X10*3/uL (1.2-4.9); Lymphocytes Percent Auto 25.7 % (20-40); Mean Corpuscular Hemoglobin 31.4 pg (27.0-33.0); Mean Corpuscular Volume 98.2 fL (80.0-98.0); Mean Platelet Volume 10.1 fL (9.4-12.3); Monocytes Absolute Auto 0.6 X10*3/uL (0.1-1.2); Monocytes Percent Auto 10.6 % (2-11); Neutrophils Absolute Auto 3.5 x10*3/uL (2.0-8.3); Neutrophils Percent Auto 62.1 % (45-73); Platelet Count 167 X10*3/uL (160-400); Red Blood Count 3.88 X10*6/uL (4.20-5.50); Red Cell Distribution Width 13.7 % (11.0-16.0); White Blood Count 5.7 X10*3/uL (4.8-10.8)
== END 2021-08-17 07:39 | disposition home or self-care (01) ==
LOC: HO.LABR 07:38
PROVIDERS: PCP Internal Medicine Medical Oncology; Visit Provider Internal Medicine Medical Oncology
DX: D69.3 Immune thrombocytopenic purpura (principal)
CPT/HCPCS: 36415; 85025

== ENCOUNTER 2021-09-07 07:45 | Outpatient (REF) | payer MEDICARE, BC, SELFPAY ==
[2021-09-07 08:06] LABS: MANUAL DIFF FLAG NO
[2021-09-07 08:53] LABS: Basophils Absolute Auto 0.1 X10*3/uL (0.0-0.2); Basophils Percent Auto 0.9 % (0-2); Eosinophils Absolute Auto 0.1 X10*3/uL (0.0-0.4); Eosinophils Percent Auto 0.8 % (0-4); Hematocrit 37.5 % (37.0-47.0); Hemoglobin 12.3 g/dl (12.0-16.0); Imm Gran Abs Auto 0.02 X10*3/uL (0.00-0.03); Imm Gran Pct Auto 0.3 % (0.0-0.4); Lymphocytes Absolute Auto 1.3 X10*3/uL (1.2-4.9); Lymphocytes Percent Auto 20.7 % (20-40); Mean Corpuscular HGB Conc 32.8 g/dl (31.0-35.0); Mean Corpuscular Hemoglobin 31.9 pg (27.0-33.0); Mean Corpuscular Volume 97.2 fL (80.0-98.0); Mean Platelet Volume 10.2 fL (9.4-12.3); Monocytes Absolute Auto 0.6 X10*3/uL (0.1-1.2); Monocytes Percent Auto 9.9 % (2-11); Neutrophils Absolute Auto 4.4 x10*3/uL (2.0-8.3); Neutrophils Percent Auto 67.4 % (45-73); Platelet Count 169 X10*3/uL (160-400); Red Blood Count 3.86 X10*6/uL (4.20-5.50); Red Cell Distribution Width 13.7 % (11.0-16.0); White Blood Count 6.5 X10*3/uL (4.8-10.8)
== END 2021-09-07 07:46 | disposition home or self-care (01) ==
LOC: HO.LABR 07:45
PROVIDERS: PCP Internal Medicine; Visit Provider Internal Medicine Medical Oncology
DX: D69.3 Immune thrombocytopenic purpura (principal)
CPT/HCPCS: 36415; 85025

== ENCOUNTER 2021-09-28 | Outpatient (REF) | payer MEDICARE, BC, SELFPAY ==
[2021-09-28 07:39] LABS: MANUAL DIFF FLAG NO
[2021-09-28 08:23] LABS: Basophils Percent Auto 0.5 % (0-2); Eosinophils Percent Auto 0.6 % (0-4); Hematocrit 40.8 % (37.0-47.0); Hemoglobin 13.3 g/dl (12.0-16.0); Imm Gran Abs Auto 0.03 X10*3/uL (0.00-0.03); Imm Gran Pct Auto 0.5 % (0.0-0.4); Lymphocytes Absolute Auto 1.5 X10*3/uL (1.2-4.9); Lymphocytes Percent Auto 23.9 % (20-40); Mean Corpuscular HGB Conc 32.6 g/dl (31.0-35.0); Mean Corpuscular Hemoglobin 31.7 pg (27.0-33.0); Mean Corpuscular Volume 97.4 fL (80.0-98.0); Mean Platelet Volume 9.7 fL (9.4-12.3); Monocytes Absolute Auto 0.7 X10*3/uL (0.1-1.2); Monocytes Percent Auto 10.2 % (2-11); Neutrophils Absolute Auto 4.1 x10*3/uL (2.0-8.3); Neutrophils Percent Auto 64.3 % (45-73); Platelet Count 161 X10*3/uL (160-400); Red Blood Count 4.19 X10*6/uL (4.20-5.50); Red Cell Distribution Width 13.8 % (11.0-16.0); White Blood Count 6.4 X10*3/uL (4.8-10.8)
== END 2021-09-28 00:01 ==
LOC: HO.LABR
PROVIDERS: PCP Internal Medicine; Visit Provider Internal Medicine Medical Oncology
DX: D69.3 Immune thrombocytopenic purpura (principal)
CPT/HCPCS: 36415; 85025

== ENCOUNTER 2021-10-19 07:28 | Outpatient (REF) | payer MEDICARE, BC, SELFPAY ==
[2021-10-19 07:35] LABS: MANUAL DIFF FLAG NO
[2021-10-19 08:12] LABS: Basophils Percent Auto 0.6 % (0-2); Eosinophils Absolute Auto 0.1 X10*3/uL (0.0-0.4); Eosinophils Percent Auto 1.2 % (0-4); Hematocrit 37.6 % (37.0-47.0); Hemoglobin 12.1 g/dl (12.0-16.0); Imm Gran Abs Auto 0.03 X10*3/uL (0.00-0.03); Imm Gran Pct Auto 0.6 % (0.0-0.4); Lymphocytes Absolute Auto 1.3 X10*3/uL (1.2-4.9); Lymphocytes Percent Auto 25.9 % (20-40); Mean Corpuscular HGB Conc 32.2 g/dl (31.0-35.0); Mean Corpuscular Hemoglobin 31.2 pg (27.0-33.0); Mean Corpuscular Volume 96.9 fL (80.0-98.0); Mean Platelet Volume 9.7 fL (9.4-12.3); Monocytes Absolute Auto 0.6 X10*3/uL (0.1-1.2); Monocytes Percent Auto 12.4 % (2-11); Neutrophils Absolute Auto 3.1 x10*3/uL (2.0-8.3); Neutrophils Percent Auto 59.3 % (45-73); Platelet Count 146 X10*3/uL (160-400); Red Blood Count 3.88 X10*6/uL (4.20-5.50); Red Cell Distribution Width 13.8 % (11.0-16.0); White Blood Count 5.2 X10*3/uL (4.8-10.8)
== END 2021-10-19 07:29 | disposition home or self-care (01) ==
LOC: HO.LAB 07:28
PROVIDERS: Absent Provider Internal Medicine; PCP Internal Medicine; Visit Provider Internal Medicine Medical Oncology
DX: D69.3 Immune thrombocytopenic purpura (principal)
CPT/HCPCS: 36415; 85025

== ENCOUNTER 2021-11-09 07:38 | Outpatient (REF) | payer MEDICARE, BC, SELFPAY ==
[2021-11-09 07:46] LABS: MANUAL DIFF FLAG NO
[2021-11-09 08:36] LABS: Basophils Percent Auto 0.5 % (0-2); Eosinophils Absolute Auto 0.1 X10*3/uL (0.0-0.4); Eosinophils Percent Auto 0.9 % (0-4); Hematocrit 36.3 % (37.0-47.0); Hemoglobin 11.7 g/dl (12.0-16.0); Imm Gran Abs Auto 0.03 X10*3/uL (0.00-0.03); Imm Gran Pct Auto 0.5 % (0.0-0.4); Lymphocytes Absolute Auto 1.3 X10*3/uL (1.2-4.9); Lymphocytes Percent Auto 21.7 % (20-40); Mean Corpuscular HGB Conc 32.2 g/dl (31.0-35.0); Mean Corpuscular Hemoglobin 31.5 pg (27.0-33.0); Mean Corpuscular Volume 97.6 fL (80.0-98.0); Mean Platelet Volume 10.3 fL (9.4-12.3); Monocytes Absolute Auto 0.6 X10*3/uL (0.1-1.2); Monocytes Percent Auto 9.9 % (2-11); Neutrophils Absolute Auto 3.9 x10*3/uL (2.0-8.3); Neutrophils Percent Auto 66.5 % (45-73); Platelet Count 115 X10*3/uL (160-400); Red Blood Count 3.72 X10*6/uL (4.20-5.50); Red Cell Distribution Width 13.8 % (11.0-16.0); White Blood Count 5.8 X10*3/uL (4.8-10.8)
== END 2021-11-09 07:39 | disposition home or self-care (01) ==
LOC: HO.LABR 07:38
PROVIDERS: PCP Internal Medicine Medical Oncology; Visit Provider Internal Medicine Medical Oncology
DX: D69.3 Immune thrombocytopenic purpura (principal)
CPT/HCPCS: 36415; 85025

== ENCOUNTER 2021-11-16 06:33 | Outpatient (REF) | payer MEDICARE, BC, SELFPAY ==
[2021-11-16 07:43] LABS: MANUAL DIFF FLAG NO
[2021-11-16 07:57] LABS: Basophils Percent Auto 0.6 % (0-2); Eosinophils Absolute Auto 0.1 X10*3/uL (0.0-0.4); Hematocrit 38.2 % (37.0-47.0); Hemoglobin 12.4 g/dl (12.0-16.0); Imm Gran Abs Auto 0.06 X10*3/uL (0.00-0.03); Lymphocytes Absolute Auto 1.9 X10*3/uL (1.2-4.9); Lymphocytes Percent Auto 29.5 % (20-40); Mean Corpuscular HGB Conc 32.5 g/dl (31.0-35.0); Mean Corpuscular Hemoglobin 31.3 pg (27.0-33.0); Mean Corpuscular Volume 96.5 fL (80.0-98.0); Mean Platelet Volume 9.5 fL (9.4-12.3); Monocytes Absolute Auto 0.7 X10*3/uL (0.1-1.2); Monocytes Percent Auto 10.3 % (2-11); Neutrophils Absolute Auto 3.6 x10*3/uL (2.0-8.3); Neutrophils Percent Auto 57.6 % (45-73); Platelet Count 135 X10*3/uL (160-400); Red Blood Count 3.96 X10*6/uL (4.20-5.50); Red Cell Distribution Width 14.1 % (11.0-16.0); White Blood Count 6.3 X10*3/uL (4.8-10.8)
== END 2021-11-16 06:34 | disposition home or self-care (01) ==
LOC: HO.LABR 06:33
PROVIDERS: PCP Internal Medicine Medical Oncology; Visit Provider Internal Medicine Medical Oncology
DX: D69.3 Immune thrombocytopenic purpura (principal)
CPT/HCPCS: 36415; 85025

== ENCOUNTER 2021-11-30 07:34 | Outpatient (REF) | payer MEDICARE, BC, SELFPAY ==
[2021-11-30 07:44] LABS: MANUAL DIFF FLAG NO
[2021-11-30 08:17] LABS: Basophils Percent Auto 0.4 % (0-2); Eosinophils Absolute Auto 0.1 X10*3/uL (0.0-0.4); Eosinophils Percent Auto 0.7 % (0-4); Hematocrit 39.1 % (37.0-47.0); Hemoglobin 12.6 g/dl (12.0-16.0); Imm Gran Abs Auto 0.04 X10*3/uL (0.00-0.03); Imm Gran Pct Auto 0.6 % (0.0-0.4); Lymphocytes Absolute Auto 1.9 X10*3/uL (1.2-4.9); Lymphocytes Percent Auto 28.1 % (20-40); Mean Corpuscular HGB Conc 32.2 g/dl (31.0-35.0); Mean Corpuscular Hemoglobin 31.4 pg (27.0-33.0); Mean Corpuscular Volume 97.5 fL (80.0-98.0); Mean Platelet Volume 9.6 fL (9.4-12.3); Monocytes Absolute Auto 0.7 X10*3/uL (0.1-1.2); Monocytes Percent Auto 10.1 % (2-11); Neutrophils Absolute Auto 4.1 x10*3/uL (2.0-8.3); Neutrophils Percent Auto 60.1 % (45-73); Platelet Count 144 X10*3/uL (160-400); Red Blood Count 4.01 X10*6/uL (4.20-5.50); Red Cell Distribution Width 13.8 % (11.0-16.0); White Blood Count 6.8 X10*3/uL (4.8-10.8)
== END 2021-11-30 07:35 | disposition home or self-care (01) ==
LOC: HO.LABR 07:34
PROVIDERS: PCP Internal Medicine Medical Oncology; Visit Provider Internal Medicine Medical Oncology
DX: D69.3 Immune thrombocytopenic purpura (principal)
CPT/HCPCS: 36415; 85025

== ENCOUNTER 2021-12-14 07:36 | Outpatient (REF) | payer MEDICARE, BC, SELFPAY ==
[2021-12-14 07:39] LABS: MANUAL DIFF FLAG NO
[2021-12-14 07:56] LABS: Basophils Percent Auto 0.3 % (0-2); Eosinophils Absolute Auto 0.1 X10*3/uL (0.0-0.4); Eosinophils Percent Auto 0.8 % (0-4); Hematocrit 40.3 % (37.0-47.0); Hemoglobin 12.8 g/dl (12.0-16.0); Imm Gran Abs Auto 0.03 X10*3/uL (0.00-0.03); Imm Gran Pct Auto 0.5 % (0.0-0.4); Lymphocytes Absolute Auto 1.8 X10*3/uL (1.2-4.9); Lymphocytes Percent Auto 28.5 % (20-40); Mean Corpuscular HGB Conc 31.8 g/dl (31.0-35.0); Mean Corpuscular Hemoglobin 30.8 pg (27.0-33.0); Mean Corpuscular Volume 97.1 fL (80.0-98.0); Mean Platelet Volume 9.5 fL (9.4-12.3); Monocytes Absolute Auto 0.6 X10*3/uL (0.1-1.2); Monocytes Percent Auto 9.1 % (2-11); Neutrophils Absolute Auto 3.7 x10*3/uL (2.0-8.3); Neutrophils Percent Auto 60.8 % (45-73); Platelet Count 150 X10*3/uL (160-400); Red Blood Count 4.15 X10*6/uL (4.20-5.50); Red Cell Distribution Width 13.8 % (11.0-16.0); White Blood Count 6.1 X10*3/uL (4.8-10.8)
== END 2021-12-14 07:37 | disposition home or self-care (01) ==
LOC: HO.LABR 07:36
PROVIDERS: PCP Internal Medicine Medical Oncology; Visit Provider Internal Medicine Medical Oncology
DX: D69.3 Immune thrombocytopenic purpura (principal)
CPT/HCPCS: 36415; 85025

== ENCOUNTER 2022-01-04 07:07 | Outpatient (REF) | payer MEDICARE, BC, SELFPAY ==
[2022-01-04 07:11] LABS: MANUAL DIFF FLAG NO
[2022-01-04 07:33] LABS: Basophils Percent Auto 0.5 % (0-2); Eosinophils Absolute Auto 0.1 X10*3/uL (0.0-0.4); Eosinophils Percent Auto 0.9 % (0-4); Hematocrit 38.6 % (37.0-47.0); Hemoglobin 12.2 g/dl (12.0-16.0); Imm Gran Abs Auto 0.03 X10*3/uL (0.00-0.03); Imm Gran Pct Auto 0.5 % (0.0-0.4); Lymphocytes Absolute Auto 1.9 X10*3/uL (1.2-4.9); Lymphocytes Percent Auto 32.2 % (20-40); Mean Corpuscular HGB Conc 31.6 g/dl (31.0-35.0); Mean Corpuscular Hemoglobin 30.9 pg (27.0-33.0); Mean Corpuscular Volume 97.7 fL (80.0-98.0); Mean Platelet Volume 9.2 fL (9.4-12.3); Monocytes Absolute Auto 0.6 X10*3/uL (0.1-1.2); Neutrophils Absolute Auto 3.2 x10*3/uL (2.0-8.3); Neutrophils Percent Auto 54.9 % (45-73); Platelet Count 151 X10*3/uL (160-400); Red Blood Count 3.95 X10*6/uL (4.20-5.50); Red Cell Distribution Width 13.9 % (11.0-16.0); White Blood Count 5.8 X10*3/uL (4.8-10.8)
== END 2022-01-04 07:08 | disposition home or self-care (01) ==
LOC: HO.LABR 07:07
PROVIDERS: PCP Internal Medicine Medical Oncology; Visit Provider Internal Medicine Medical Oncology
DX: D69.3 Immune thrombocytopenic purpura (principal)
CPT/HCPCS: 36415; 85025

== ENCOUNTER 2022-01-25 06:12 | Outpatient (REF) | payer MEDICARE, BC, SELFPAY ==
[2022-01-25 07:31] LABS: MANUAL DIFF FLAG NO
[2022-01-25 07:56] LABS: Basophils Percent Auto 0.3 % (0-2); Eosinophils Percent Auto 0.6 % (0-4); Hematocrit 38.3 % (37.0-47.0); Hemoglobin 12.2 g/dl (12.0-16.0); Imm Gran Abs Auto 0.03 X10*3/uL (0.00-0.03); Imm Gran Pct Auto 0.5 % (0.0-0.4); Lymphocytes Absolute Auto 1.5 X10*3/uL (1.2-4.9); Lymphocytes Percent Auto 24.4 % (20-40); Mean Corpuscular HGB Conc 31.9 g/dl (31.0-35.0); Mean Corpuscular Volume 97.5 fL (80.0-98.0); Mean Platelet Volume 9.3 fL (9.4-12.3); Monocytes Absolute Auto 0.6 X10*3/uL (0.1-1.2); Monocytes Percent Auto 10.3 % (2-11); Neutrophils Percent Auto 63.9 % (45-73); Platelet Count 147 X10*3/uL (160-400); Red Blood Count 3.93 X10*6/uL (4.20-5.50); Red Cell Distribution Width 14.2 % (11.0-16.0); White Blood Count 6.2 X10*3/uL (4.8-10.8)
== END 2022-01-25 06:13 | disposition home or self-care (01) ==
LOC: HO.LABR 06:12
PROVIDERS: PCP Internal Medicine Medical Oncology; Visit Provider Internal Medicine Medical Oncology
DX: D69.3 Immune thrombocytopenic purpura (principal)
CPT/HCPCS: 36415; 85025

== ENCOUNTER 2022-02-15 07:33 | Outpatient (REF) | payer MEDICARE, BC, SELFPAY ==
[2022-02-15 07:41] LABS: MANUAL DIFF FLAG NO
[2022-02-15 07:58] LABS: Basophils Percent Auto 0.6 % (0-2); Eosinophils Absolute Auto 0.1 X10*3/uL (0.0-0.4); Eosinophils Percent Auto 0.9 % (0-4); Hematocrit 39.6 % (37.0-47.0); Hemoglobin 12.5 g/dl (12.0-16.0); Imm Gran Abs Auto 0.03 X10*3/uL (0.00-0.03); Imm Gran Pct Auto 0.4 % (0.0-0.4); Lymphocytes Percent Auto 29.1 % (20-40); Mean Corpuscular HGB Conc 31.6 g/dl (31.0-35.0); Mean Corpuscular Hemoglobin 30.9 pg (27.0-33.0); Mean Platelet Volume 9.2 fL (9.4-12.3); Monocytes Absolute Auto 0.7 X10*3/uL (0.1-1.2); Monocytes Percent Auto 10.1 % (2-11); Neutrophils Percent Auto 58.9 % (45-73); Platelet Count 146 X10*3/uL (160-400); Red Blood Count 4.04 X10*6/uL (4.20-5.50); Red Cell Distribution Width 14.3 % (11.0-16.0); White Blood Count 6.8 X10*3/uL (4.8-10.8)
== END 2022-02-15 07:34 | disposition home or self-care (01) ==
LOC: HO.LABR 07:33
PROVIDERS: PCP Internal Medicine Medical Oncology; Visit Provider Internal Medicine Medical Oncology
DX: D69.3 Immune thrombocytopenic purpura (principal)
CPT/HCPCS: 36415; 85025

== ENCOUNTER 2022-03-08 07:28 | Outpatient (REF) | payer MEDICARE, BC, SELFPAY ==
[2022-03-08 07:36] LABS: MANUAL DIFF FLAG NO
[2022-03-08 09:22] LABS: Basophils Percent Auto 0.4 % (0-2); Eosinophils Percent Auto 0.4 % (0-4); Hematocrit 38.7 % (37.0-47.0); Hemoglobin 12.1 g/dl (12.0-16.0); Imm Gran Abs Auto 0.03 X10*3/uL (0.00-0.03); Imm Gran Pct Auto 0.4 % (0.0-0.4); Lymphocytes Percent Auto 29.6 % (20-40); Mean Corpuscular HGB Conc 31.3 g/dl (31.0-35.0); Mean Corpuscular Hemoglobin 30.7 pg (27.0-33.0); Mean Corpuscular Volume 98.2 fL (80.0-98.0); Mean Platelet Volume 10.1 fL (9.4-12.3); Monocytes Absolute Auto 0.7 X10*3/uL (0.1-1.2); Monocytes Percent Auto 10.9 % (2-11); Neutrophils Percent Auto 58.3 % (45-73); Platelet Count 109 X10*3/uL (160-400); Red Blood Count 3.94 X10*6/uL (4.20-5.50); White Blood Count 6.8 X10*3/uL (4.8-10.8)
== END 2022-03-08 07:29 | disposition home or self-care (01) ==
LOC: HO.LABR 07:28
PROVIDERS: PCP Internal Medicine Medical Oncology; Visit Provider Internal Medicine Medical Oncology
DX: D69.3 Immune thrombocytopenic purpura (principal)
CPT/HCPCS: 36415; 85025

== ENCOUNTER 2022-03-22 06:05 | Outpatient (REF) | payer MEDICARE, BC, SELFPAY ==
[2022-03-22 07:50] LABS: MANUAL DIFF FLAG NO
[2022-03-22 08:31] LABS: Basophils Percent Auto 0.4 % (0-2); Eosinophils Percent Auto 0.4 % (0-4); Hemoglobin 11.9 g/dl (12.0-16.0); Imm Gran Abs Auto 0.05 X10*3/uL (0.00-0.03); Imm Gran Pct Auto 0.7 % (0.0-0.4); Lymphocytes Absolute Auto 1.9 X10*3/uL (1.2-4.9); Lymphocytes Percent Auto 25.7 % (20-40); Mean Corpuscular HGB Conc 31.3 g/dl (31.0-35.0); Mean Corpuscular Hemoglobin 31.1 pg (27.0-33.0); Mean Corpuscular Volume 99.2 fL (80.0-98.0); Mean Platelet Volume 10.3 fL (9.4-12.3); Monocytes Absolute Auto 0.7 X10*3/uL (0.1-1.2); Monocytes Percent Auto 9.5 % (2-11); Neutrophils Absolute Auto 4.7 x10*3/uL (2.0-8.3); Neutrophils Percent Auto 63.3 % (45-73); Red Blood Count 3.83 X10*6/uL (4.20-5.50); Red Cell Distribution Width 14.2 % (11.0-16.0); White Blood Count 7.4 X10*3/uL (4.8-10.8)
[2022-03-22 08:36] LABS: Platelet Count 89 X10*3/uL (160-400)
== END 2022-03-22 06:06 | disposition home or self-care (01) ==
LOC: HO.LABR 06:05
PROVIDERS: PCP Internal Medicine Medical Oncology; Visit Provider Internal Medicine Medical Oncology
DX: D69.3 Immune thrombocytopenic purpura (principal)
CPT/HCPCS: 36415; 85025

== ENCOUNTER 2022-03-29 07:55 | Outpatient (REF) | payer MEDICARE, BC, SELFPAY ==
[2022-03-29 07:52] LABS: MANUAL DIFF FLAG NO
[2022-03-29 08:05] LABS: Basophils Absolute Auto 0.1 X10*3/uL (0.0-0.2); Basophils Percent Auto 0.5 % (0-2); Eosinophils Percent Auto 0.4 % (0-4); Hematocrit 36.5 % (37.0-47.0); Hemoglobin 11.6 g/dl (12.0-16.0); Imm Gran Abs Auto 0.07 X10*3/uL (0.00-0.03); Imm Gran Pct Auto 0.6 % (0.0-0.4); Lymphocytes Absolute Auto 2.2 X10*3/uL (1.2-4.9); Lymphocytes Percent Auto 20.3 % (20-40); Mean Corpuscular HGB Conc 31.8 g/dl (31.0-35.0); Mean Corpuscular Hemoglobin 30.7 pg (27.0-33.0); Mean Corpuscular Volume 96.6 fL (80.0-98.0); Mean Platelet Volume 9.1 fL (9.4-12.3); Monocytes Absolute Auto 0.9 X10*3/uL (0.1-1.2); Monocytes Percent Auto 8.4 % (2-11); Neutrophils Absolute Auto 7.6 x10*3/uL (2.0-8.3); Neutrophils Percent Auto 69.8 % (45-73); Platelet Count 162 X10*3/uL (160-400); Red Blood Count 3.78 X10*6/uL (4.20-5.50); Red Cell Distribution Width 14.5 % (11.0-16.0); White Blood Count 10.9 X10*3/uL (4.8-10.8)
== END 2022-03-29 07:56 | disposition home or self-care (01) ==
LOC: HO.LABR 07:55
PROVIDERS: PCP Internal Medicine Medical Oncology; Visit Provider Internal Medicine Medical Oncology
DX: D69.3 Immune thrombocytopenic purpura (principal)
CPT/HCPCS: 36415; 85025

== ENCOUNTER 2022-04-05 12:50 | Outpatient (REF) | payer MEDICARE, BC, SELFPAY ==
[2022-04-05 07:57] LABS: MANUAL DIFF FLAG NO
[2022-04-05 08:55] LABS: Basophils Percent Auto 0.3 % (0-2); Eosinophils Percent Auto 0.2 % (0-4); Hematocrit 36.5 % (37.0-47.0); Hemoglobin 11.4 g/dl (12.0-16.0); Imm Gran Abs Auto 0.13 X10*3/uL (0.00-0.03); Imm Gran Pct Auto 1.1 % (0.0-0.4); Lymphocytes Percent Auto 16.2 % (20-40); Mean Corpuscular HGB Conc 31.2 g/dl (31.0-35.0); Mean Corpuscular Hemoglobin 31.2 pg (27.0-33.0); Mean Platelet Volume 9.4 fL (9.4-12.3); Monocytes Absolute Auto 0.7 X10*3/uL (0.1-1.2); Monocytes Percent Auto 5.9 % (2-11); Neutrophils Absolute Auto 9.4 x10*3/uL (2.0-8.3); Neutrophils Percent Auto 76.3 % (45-73); Platelet Count 180 X10*3/uL (160-400); Red Blood Count 3.65 X10*6/uL (4.20-5.50); Red Cell Distribution Width 14.5 % (11.0-16.0); White Blood Count 12.3 X10*3/uL (4.8-10.8)
== END 2022-04-05 12:51 | disposition home or self-care (01) ==
LOC: HO.LABR 12:50
PROVIDERS: PCP Internal Medicine; Visit Provider Internal Medicine Medical Oncology
DX: D69.3 Immune thrombocytopenic purpura (principal)
CPT/HCPCS: 36415; 85025

== ENCOUNTER 2022-04-12 | Outpatient (REF) | payer MEDICARE, BC, SELFPAY ==
[2022-04-12 08:11] LABS: MANUAL DIFF FLAG NO
[2022-04-12 08:17] LABS: Basophils Percent Auto 0.4 % (0-2); Eosinophils Percent Auto 0.4 % (0-4); Hemoglobin 12.3 g/dl (12.0-16.0); Imm Gran Abs Auto 0.07 X10*3/uL (0.00-0.03); Imm Gran Pct Auto 0.7 % (0.0-0.4); Lymphocytes Absolute Auto 1.6 X10*3/uL (1.2-4.9); Lymphocytes Percent Auto 14.6 % (20-40); Mean Corpuscular HGB Conc 31.5 g/dl (31.0-35.0); Mean Corpuscular Hemoglobin 30.8 pg (27.0-33.0); Mean Corpuscular Volume 97.5 fL (80.0-98.0); Mean Platelet Volume 8.8 fL (9.4-12.3); Monocytes Absolute Auto 0.8 X10*3/uL (0.1-1.2); Monocytes Percent Auto 7.5 % (2-11); Neutrophils Absolute Auto 8.1 x10*3/uL (2.0-8.3); Neutrophils Percent Auto 76.4 % (45-73); Platelet Count 196 X10*3/uL (160-400); Red Cell Distribution Width 14.2 % (11.0-16.0); White Blood Count 10.6 X10*3/uL (4.8-10.8)
== END 2022-04-12 00:01 | disposition home or self-care (01) ==
LOC: HO.LABR
PROVIDERS: PCP Internal Medicine Medical Oncology; Visit Provider Internal Medicine Medical Oncology
DX: D69.3 Immune thrombocytopenic purpura (principal)
CPT/HCPCS: 36415; 85025

== ENCOUNTER 2022-04-26 06:14 | Outpatient (REF) | payer MEDICARE, BC, SELFPAY ==
[2022-04-26 07:53] LABS: MANUAL DIFF FLAG NO
[2022-04-26 08:24] LABS: Basophils Absolute Auto 0.1 X10*3/uL (0.0-0.2); Basophils Percent Auto 0.6 % (0-2); Eosinophils Percent Auto 0.5 % (0-4); Hemoglobin 11.7 g/dl (12.0-16.0); Imm Gran Abs Auto 0.07 X10*3/uL (0.00-0.03); Imm Gran Pct Auto 0.8 % (0.0-0.4); Lymphocytes Absolute Auto 1.7 X10*3/uL (1.2-4.9); Lymphocytes Percent Auto 20.5 % (20-40); Mean Corpuscular HGB Conc 31.6 g/dl (31.0-35.0); Mean Corpuscular Hemoglobin 30.8 pg (27.0-33.0); Mean Corpuscular Volume 97.4 fL (80.0-98.0); Monocytes Absolute Auto 0.7 X10*3/uL (0.1-1.2); Monocytes Percent Auto 8.9 % (2-11); Neutrophils Absolute Auto 5.7 x10*3/uL (2.0-8.3); Neutrophils Percent Auto 68.7 % (45-73); Platelet Count 237 X10*3/uL (160-400); Red Cell Distribution Width 14.3 % (11.0-16.0); White Blood Count 8.2 X10*3/uL (4.8-10.8)
== END 2022-04-26 06:15 | disposition home or self-care (01) ==
LOC: HO.LABR 06:14
PROVIDERS: PCP Internal Medicine Medical Oncology; Visit Provider Internal Medicine Medical Oncology
DX: D69.3 Immune thrombocytopenic purpura (principal)
CPT/HCPCS: 36415; 85025

== ENCOUNTER 2022-05-10 07:12 | Outpatient (REF) | payer MEDICARE, BC, SELFPAY ==
[2022-05-10 07:21] LABS: MANUAL DIFF FLAG NO
[2022-05-10 07:50] LABS: Basophils Percent Auto 0.5 % (0-2); Eosinophils Percent Auto 0.6 % (0-4); Hematocrit 36.5 % (37.0-47.0); Hemoglobin 11.3 g/dl (12.0-16.0); Imm Gran Abs Auto 0.04 X10*3/uL (0.00-0.03); Imm Gran Pct Auto 0.6 % (0.0-0.4); Lymphocytes Percent Auto 31.1 % (20-40); Mean Corpuscular Hemoglobin 30.8 pg (27.0-33.0); Mean Corpuscular Volume 99.5 fL (80.0-98.0); Mean Platelet Volume 9.2 fL (9.4-12.3); Monocytes Absolute Auto 0.8 X10*3/uL (0.1-1.2); Neutrophils Absolute Auto 3.5 x10*3/uL (2.0-8.3); Neutrophils Percent Auto 55.2 % (45-73); Platelet Count 236 X10*3/uL (160-400); Red Blood Count 3.67 X10*6/uL (4.20-5.50); Red Cell Distribution Width 14.6 % (11.0-16.0); White Blood Count 6.3 X10*3/uL (4.8-10.8)
== END 2022-05-10 07:13 | disposition home or self-care (01) ==
LOC: HO.LABR 07:12
PROVIDERS: Visit Provider Internal Medicine Medical Oncology
DX: D69.3 Immune thrombocytopenic purpura (principal)
CPT/HCPCS: 36415; 85025

== ENCOUNTER 2022-05-31 06:17 | Outpatient (REF) | payer MEDICARE, BC, SELFPAY ==
[2022-05-31 08:03] LABS: MANUAL DIFF FLAG NO
[2022-05-31 08:13] LABS: Basophils Absolute Auto 0.1 X10*3/uL (0.0-0.2); Basophils Percent Auto 0.6 % (0-2); Eosinophils Absolute Auto 0.1 X10*3/uL (0.0-0.4); Eosinophils Percent Auto 0.8 % (0-4); Hematocrit 34.5 % (37.0-47.0); Hemoglobin 10.9 g/dl (12.0-16.0); Imm Gran Abs Auto 0.09 X10*3/uL (0.00-0.03); Lymphocytes Absolute Auto 1.9 X10*3/uL (1.2-4.9); Lymphocytes Percent Auto 21.2 % (20-40); Mean Corpuscular HGB Conc 31.6 g/dl (31.0-35.0); Mean Corpuscular Hemoglobin 30.3 pg (27.0-33.0); Mean Corpuscular Volume 95.8 fL (80.0-98.0); Mean Platelet Volume 8.7 fL (9.4-12.3); Monocytes Percent Auto 10.9 % (2-11); Neutrophils Absolute Auto 5.8 x10*3/uL (2.0-8.3); Neutrophils Percent Auto 65.5 % (45-73); Platelet Count 328 X10*3/uL (160-400); Red Cell Distribution Width 14.4 % (11.0-16.0); White Blood Count 8.8 X10*3/uL (4.8-10.8)
== END 2022-05-31 06:18 | disposition home or self-care (01) ==
LOC: HO.LABR 06:17
PROVIDERS: PCP Internal Medicine Medical Oncology; Visit Provider Internal Medicine Medical Oncology
DX: D69.3 Immune thrombocytopenic purpura (principal)
CPT/HCPCS: 36415; 85025

== ENCOUNTER 2022-06-21 07:11 | Outpatient (REF) | payer MEDICARE, BC, SELFPAY ==
[2022-06-21 08:01] LABS: MANUAL DIFF FLAG NO
[2022-06-21 08:26] LABS: Basophils Percent Auto 0.3 % (0-2); Eosinophils Absolute Auto 0.1 X10*3/uL (0.0-0.4); Eosinophils Percent Auto 0.9 % (0-4); Hemoglobin 11.6 g/dl (12.0-16.0); Imm Gran Abs Auto 0.03 X10*3/uL (0.00-0.03); Imm Gran Pct Auto 0.4 % (0.0-0.4); Lymphocytes Absolute Auto 1.7 X10*3/uL (1.2-4.9); Mean Corpuscular HGB Conc 31.4 g/dl (31.0-35.0); Mean Corpuscular Hemoglobin 30.6 pg (27.0-33.0); Mean Corpuscular Volume 97.6 fL (80.0-98.0); Monocytes Absolute Auto 0.6 X10*3/uL (0.1-1.2); Monocytes Percent Auto 9.1 % (2-11); Neutrophils Absolute Auto 4.4 x10*3/uL (2.0-8.3); Neutrophils Percent Auto 64.3 % (45-73); Platelet Count 223 X10*3/uL (160-400); Red Blood Count 3.79 X10*6/uL (4.20-5.50); Red Cell Distribution Width 15.8 % (11.0-16.0); White Blood Count 6.8 X10*3/uL (4.8-10.8)
== END 2022-06-21 07:12 | disposition home or self-care (01) ==
LOC: HO.LABR 07:11
PROVIDERS: Visit Provider Internal Medicine Medical Oncology
DX: D69.3 Immune thrombocytopenic purpura (principal)
CPT/HCPCS: 36415; 85025

== ENCOUNTER 2022-07-12 07:36 | Outpatient (REF) | payer MEDICARE, BC, SELFPAY ==
[2022-07-12 07:44] LABS: MANUAL DIFF FLAG NO
[2022-07-12 08:28] LABS: Basophils Percent Auto 0.5 % (0-2); Eosinophils Percent Auto 0.5 % (0-4); Hematocrit 37.5 % (37.0-47.0); Hemoglobin 11.7 g/dl (12.0-16.0); Imm Gran Abs Auto 0.02 X10*3/uL (0.00-0.03); Imm Gran Pct Auto 0.3 % (0.0-0.4); Lymphocytes Absolute Auto 1.7 X10*3/uL (1.2-4.9); Lymphocytes Percent Auto 28.4 % (20-40); Mean Corpuscular HGB Conc 31.2 g/dl (31.0-35.0); Mean Corpuscular Hemoglobin 30.7 pg (27.0-33.0); Mean Corpuscular Volume 98.4 fL (80.0-98.0); Mean Platelet Volume 9.3 fL (9.4-12.3); Monocytes Absolute Auto 0.6 X10*3/uL (0.1-1.2); Monocytes Percent Auto 10.2 % (2-11); Neutrophils Absolute Auto 3.6 x10*3/uL (2.0-8.3); Neutrophils Percent Auto 60.1 % (45-73); Platelet Count 222 X10*3/uL (160-400); Red Blood Count 3.81 X10*6/uL (4.20-5.50); Red Cell Distribution Width 15.5 % (11.0-16.0); White Blood Count 5.9 X10*3/uL (4.8-10.8)
== END 2022-07-12 07:37 | disposition home or self-care (01) ==
LOC: HO.LAB 07:36
PROVIDERS: Visit Provider Internal Medicine Medical Oncology
DX: D69.3 Immune thrombocytopenic purpura (principal)
CPT/HCPCS: 36415; 85025

== ENCOUNTER 2022-07-26 07:42 | Outpatient (REF) | payer MEDICARE, BC, SELFPAY ==
[2022-07-26 07:51] LABS: MANUAL DIFF FLAG NO
[2022-07-26 08:07] LABS: Basophils Percent Auto 0.5 % (0-2); Eosinophils Absolute Auto 0.1 X10*3/uL (0.0-0.4); Hematocrit 36.4 % (37.0-47.0); Hemoglobin 11.5 g/dl (12.0-16.0); Imm Gran Abs Auto 0.03 X10*3/uL (0.00-0.03); Imm Gran Pct Auto 0.5 % (0.0-0.4); Lymphocytes Absolute Auto 1.6 X10*3/uL (1.2-4.9); Lymphocytes Percent Auto 25.9 % (20-40); Mean Corpuscular HGB Conc 31.6 g/dl (31.0-35.0); Mean Corpuscular Hemoglobin 31.9 pg (27.0-33.0); Mean Corpuscular Volume 100.8 fL (80.0-98.0); Mean Platelet Volume 8.8 fL (9.4-12.3); Monocytes Absolute Auto 0.7 X10*3/uL (0.1-1.2); Monocytes Percent Auto 10.9 % (2-11); Neutrophils Absolute Auto 3.7 x10*3/uL (2.0-8.3); Neutrophils Percent Auto 61.2 % (45-73); Platelet Count 213 X10*3/uL (160-400); Red Blood Count 3.61 X10*6/uL (4.20-5.50); Red Cell Distribution Width 15.6 % (11.0-16.0)
== END 2022-07-26 07:43 | disposition home or self-care (01) ==
LOC: HO.LABR 07:42
PROVIDERS: PCP Internal Medicine Medical Oncology; Visit Provider Internal Medicine Medical Oncology
DX: D69.3 Immune thrombocytopenic purpura (principal)
CPT/HCPCS: 36415; 85025

== ENCOUNTER 2022-08-01 12:59 | Outpatient (REF) | payer MEDICARE, BC, SELFPAY ==
--- NOTE | ~2022-08-01 | XR_ITS ---
EXAMINATION: XR LUMBOSACRAL SPINE WITH OBLIQUES CLINICAL INFORMATION: Low back pain COMPARISON: Previous x-ray December 2019 and chest x-ray from March 2020 TECHNIQUE: AP, both oblique, and lateral views of the lumbar spine. Lateral view of the lumbosacral junction. FINDINGS: There is a moderate T12 vertebral body compression fracture. This is new from previous x-rays. No other fracture. Degenerative disc disease at L4-L5. Spondylosis L3-L4 L4-L5. Lower lumbar spine facet arthritis. Atherosclerotic disease. XR/XR lumbar spine 4V min IMPRESSION: Moderate T12 vertebral body compression fracture. This is indeterminate age but new from older exams most recent from March 2020. Degenerative changes.
== END 2022-08-01 13:00 | disposition home or self-care (01) ==
LOC: HO.HMGCX 12:59
PROVIDERS: PCP Internal Medicine Medical Oncology; Visit Provider Internal Medicine
DX: M54.50 Low back pain, unspecified (principal)
CPT/HCPCS: 72110

== ENCOUNTER → 2022-08-13 10:48 | Outpatient (REF) | payer MEDICARE, BC, SELFPAY ==
--- NOTE | ~2022-08-13 | NM_ITS ---
EXAMINATION: NM BONE SCAN OF THE WHOLE BODY CLINICAL INFORMATION: Wedge comp. Fx. of t11-t12, s/ p fall 2wks ago. COMPARISON: No previous bone scan is available for comparison. Radiographs of the lumbosacral spine dated 08/01/2022 and of the chest dated 04/07/2020 are available for comparison. TECHNIQUE: Multiple gamma scintillation camera images of the whole body were performed 2.5 hours following the intravenous administration of 32 mCi Tc-99m MDP. FINDINGS: In the head, no significant abnormalities are present. In the thoracic cage and upper extremities, there is minimally increased activity in the acromioclavicular and sternoclavicular joints bilaterally and at the costochondral junctions of both first ribs. There is a horizontally linear focus of moderately increased activity in the midsternum at the level of the third interspace. There are foci of mildly increased activity in the radial side of both hands, likely arthritic. In the spine, there is intense abnormally increased activity in a horizontally linear distribution at T12. This corresponds to the compression fracture at this site on the 08/01/2022 radiographs. A minimal thoracolumbar scoliosis is present with lumbar convexity to the left. No other abnormalities are present in the spine. In the pelvis, no abnormalities are present. In the lower extremities, there is diffusely increased activity in both knees and this is most prominent with moderate intensity diffusely in both patellae. Several foci of mildly increased activity are present in the proximal and mid feet bilaterally. No other definite bony abnormalities are noted. The urinary bladder and faint visualization of both kidneys are noted. NM/NM bone scan whole body IMPRESSION: 1. Intense abnormality in the T12 vertebral body is most consistent with a recent compression fracture. 2. An additional abnormality in the mid to lower sternum is likely also due to a recent fracture. This is less intense than the T12 abnormality and may be subacute. 3. A few additional mild nonspecific abnormalities are noted as described above and these are all likely arthritic or traumatic in etiology. None of these abnormalities is strongly suspicious for metastatic disease.
== END ==
LOC: HO.NUCMED 10:48
PROVIDERS: PCP Internal Medicine Medical Oncology; Visit Provider Internal Medicine
DX: S22.080A Wedge compression fracture of T11-T12 vertebra, initial encounter for closed fracture (principal); X58.XXXA Exposure to other specified factors, initial encounter; Y93.9 Activity, unspecified; Y92.9 Unspecified place or not applicable; Y99.9 Unspecified external cause status
CPT/HCPCS: 78306; A9503

== ENCOUNTER 2022-08-16 12:45 | Outpatient (REF) | payer MEDICARE, BC, SELFPAY ==
--- NOTE | ~2022-08-16 | IR_ITS ---
CONSULTATION FOR KYPHOPLASTY REASON FOR CONSULTATION: T12 compression fracture. TIME SPENT WITH PATIENT: 25 min. CLINICAL HISTORY: [id number] back pain, especially in ambulation. Had a fall several weeks ago. MEDICAL HISTORY: Patient receiving anticoagulation. SURGICAL HISTORY: Not significant. PHYSICAL EXAMINATION: The patient has acute tenderness in the T12 region posterior spine. No additional pain elicited throughout the spine. The findings correlate with the abnormality seen on the bone scan 08/13/2022. ASSESSMENT AND PLAN: The kyphoplasty procedure was explained in detail and questions answered regarding complications and risks of the procedure. The patient understood the entire procedure and the follow up as well. Will make a decision soon. Kyphoplasty consultation was performed for T12 compression fracture. The patient reveal the exact time and date if she wants to pursue the procedure.
== END 2022-08-16 12:46 | disposition home or self-care (01) ==
LOC: HO.RADIR 12:45
PROVIDERS: Visit Provider Internal Medicine
DX: M54.9 Dorsalgia, unspecified (principal); Z91.81 History of falling; Z79.01 Long term (current) use of anticoagulants
CPT/HCPCS: 76000

== ENCOUNTER 2022-09-03 07:23 | Outpatient (REF) | payer MEDICARE, BC, SELFPAY ==
[2022-09-03 07:37] LABS: MANUAL DIFF FLAG NO
[2022-09-03 08:15] LABS: Basophils Percent Auto 0.5 % (0-2); Eosinophils Percent Auto 0.6 % (0-4); Hematocrit 37.3 % (37.0-47.0); Hemoglobin 11.8 g/dl (12.0-16.0); Imm Gran Abs Auto 0.03 X10*3/uL (0.00-0.03); Imm Gran Pct Auto 0.5 % (0.0-0.4); Lymphocytes Absolute Auto 1.7 X10*3/uL (1.2-4.9); Lymphocytes Percent Auto 25.3 % (20-40); Mean Corpuscular HGB Conc 31.6 g/dl (31.0-35.0); Mean Corpuscular Hemoglobin 31.1 pg (27.0-33.0); Mean Corpuscular Volume 98.2 fL (80.0-98.0); Mean Platelet Volume 8.9 fL (9.4-12.3); Monocytes Absolute Auto 0.7 X10*3/uL (0.1-1.2); Monocytes Percent Auto 10.7 % (2-11); Neutrophils Absolute Auto 4.2 x10*3/uL (2.0-8.3); Neutrophils Percent Auto 62.4 % (45-73); Platelet Count 236 X10*3/uL (160-400); Red Cell Distribution Width 14.5 % (11.0-16.0); White Blood Count 6.6 X10*3/uL (4.8-10.8)
== END 2022-09-03 07:24 | disposition home or self-care (01) ==
LOC: HO.LABR 07:23
PROVIDERS: PCP Internal Medicine Medical Oncology; Visit Provider Internal Medicine Medical Oncology
DX: D69.3 Immune thrombocytopenic purpura (principal)
CPT/HCPCS: 36415; 85025

== ENCOUNTER 2022-09-05 11:48 | Day surgery (SDC) | payer MEDICARE, BC, SELFPAY ==
--- NOTE | 2022-09-04 09:54 | HO.ANESPROP2 ---
Documented by User: Abena Joy NP 09/04/22 09:56 HPI - Anesthesia Eval Consult details Narrative: 71yo F for Kyphoplasty Eliquis PMFSH Active Problems Active Problems: All Active Problems (Updated 12/29/19 @ 00:04 by Jossie Fregoso) Current use of anticoagulant therapy (Acute) Pulmonary embolism (Acute) Viral syndrome (Acute) Nausea & vomiting (Acute) CAP (community acquired pneumonia) (Acute) Sepsis (Acute) Past Medical History Medical History Chronic ITP (idiopathic thrombocytopenia) Hypercholesterolemia Hypertension Social History Social History Household Members: Spouse Housing: House Do you presently have visiting nurse or other home services: No Alcohol intake: never Advance Directives: No Advance Directives Information Provided: Yes service: No Current occupational status: retired Current occupational exposures/hazards: No Meds Allergies Allergy/AdvReac Type Severity Reaction Status Date / Time sulfur Allergy Unknown Rash Verified 01/07/20 08:28 cillin family Allergy Unknown STOMACH Uncoded 12/23/19 14:17 ACHE Home Medications Medication Instructions Recorded Confirmed Last Taken Type levothyroxine 50 mcg tablet 50 mcg PO DAILY 12/15/19 01/07/20 09/05/22 History metoprolol succinate 50 mg 75 mg PO DAILY 12/15/19 01/07/20 09/05/22 History tablet,extended release 24 hr prednisone 5 mg tablet 7.5 mg PO PER PKG DIR 12/15/19 12/25/19 09/05/22 History rosuvastatin 5 mg tablet 5 mg PO BEDTIME 12/15/19 01/07/20 09/03/22 History apixaban 5 mg tablet (Eliquis) 5 mg PO BID 09/05/22 09/05/22 09/01/22 History prednisone 10 mg tablets in a dose 10 mg PO CONT. PER PROTOCOL 09/05/22 09/05/22 Unknown History pack Exam Exam Date and Time: September 04, 2022 0954 Pertinent Lab Results Pertinent Lab Results: Laboratory Tests 09/03/22 07:35 WBC 6.6 Hgb 11.8 L Hct 37.3 Plt Count 236 Narrative Narrative: XR lumbar spine 4V min 07/2022 IMPRESSION: Moderate T12 vertebral body compression fracture. This is indeterminate age but new from older exams most recent from March 2020. Degenerative changes.? NM bone scan whole body 07/2022 IMPRESSION: 1.? Intense abnormality in the T12 vertebral body is most consistent with a recent compression fracture. 2.? An additional abnormality in the mid to lower sternum is likely also due to a recent fracture. This is less intense than the T12 abnormality and may be subacute. 3.? A few additional mild nonspecific abnormalities are noted as described above and these are all likely arthritic or traumatic in etiology. None of these abnormalities is strongly suspicious for metastatic disease. Assessment and Plan Assessment Anesthesia Assessment: Chart Reviewed Documented by User: Ericka Royal MD 09/05/22 12:41 [facility] Past Medical History Medical History Chronic ITP (idiopathic thrombocytopenia) Hypercholesterolemia Hypertension Family History Family history of problems with anesthesia: No Surgical History History of Problems with Anesthesia: No Social History Social History Household Members: Spouse Housing: House Do you presently have visiting nurse or other home services: No Alcohol intake: never Advance Directives: No Advance Directives Information Provided: Yes service: No Current occupational status: retired Current occupational exposures/hazards: No Meds Allergies Allergy/AdvReac Type Severity Reaction Status Date / Time sulfur Allergy Unknown Rash Verified 01/07/20 08:28 cillin family Allergy Unknown STOMACH Uncoded 12/23/19 14:17 ACHE Home Medications Medication Instructions Recorded Confirmed Last Taken Type levothyroxine 50 mcg tablet 50 mcg PO DAILY 12/15/19 01/07/20 09/05/22 History metoprolol succinate 50 mg 75 mg PO DAILY 12/15/19 01/07/20 09/05/22 History tablet,extended release 24 hr prednisone 5 mg tablet 7.5 mg PO PER PKG DIR 10/12/25/19 09/05/22 History rosuvastatin 5 mg tablet 5 mg PO BEDTIME 12/15/19 01/07/20 09/03/22 History apixaban 5 mg tablet (Eliquis) 5 mg PO BID 09/05/22 09/05/22 09/01/22 History prednisone 10 mg tablets in a dose 10 mg PO CONT. PER PROTOCOL 09/05/22 09/05/22 Unknown History pack Exam Airway Mallampati Class: II TM Dist: >3cm Neck ROM: Full Heart: rrr Lungs: cta Assessment and Plan Assessment Anesthesia Assessment: Anesthesia Plan Discussed Final Anesthetic Review Family History of Problems with Anesthesia: No History of Problems with Anesthesia: No NPO: Yes ASA Class: II Final Preanesthetic Review: No Changes in Pt Med Stat, Meds/Allgs Chart Reviewed and Consent Obtained/Reviewed Patient Risk: Intermediate Procedure Risk: Intermediate Anesthetic Plan Anesthetic Plan: MAC: Disposition: Standard PACU
[2022-09-05] VITALS (12 sets, daily range): BP systolic 129–162; BP diastolic 54–79; PULSE 57–89; RESP 16–20; TEMP 36.1–36.4; O2SAT 95–99; BMI 29.2
--- NOTE | ~2022-09-05 | CT_ITS ---
EXAMINATION: CT THORACIC SPINE CLINICAL INFORMATION: Status post T12 kyphoplasty. COMPARISON: None available. TECHNIQUE: Axial 2 mm thin and reformatted 2 mm thin sagittal and coronal images of lower dorsal spine were obtained without contrast. This CT examination was performed using dose optimization techniques as appropriate, variously including the following: *Automated exposure control *Adjustment of mA and/or kV according to patient size (this includes techniques or standardized protocols for targeted exams where dose is matched to indication/reason for exam; i.e. extremities or head) *Use of iterative reconstruction technique DLP: 289 mGy-cm FINDINGS: There is cement visualized occupying almost entire T12 compression fracture. A small superior posterior bony component/fragment is unchanged to previous kyphoplasty CT. Most of cement is within the T12 vertebra with slight extravasation in the T12-L1 disc level through an inferior endplate T12 fracture. There is mild loss of T11-T12 disc height with vacuum disc phenomena. Minimal loss of T10-T11 disc level is also noted. The visualized T10, T11, L1 and L2 vertebral heights are preserved with normal alignment. The paravertebral soft tissues are normal. Minimal compressive atelectasis seen in both lung bases. CT/CT thoracic spine post vert IMPRESSION: Adequate amount of cement occupying the T12 vertebral fracture with no posterior extravasation seen. Small posterior superior bony fragment is unchanged to previous kyphoplasty CT. Minimal cement is seen at the T12-L1 disc level through an inferior endplate fracture. Fleischner guidelines were followed.
--- NOTE | ~2022-09-05 | CT_ITS ---
EXAMINATION: CT THORACIC SPINE CLINICAL INFORMATION: Thoracic compression fracture. COMPARISON: Chest x-ray of 04/07/2020 and lumbar spine study of 08/01/2022. TECHNIQUE: Limited CT thoracic spine from inferior endplate of T10 to endplate of L2 with sagittal and coronal reconstructions. This CT examination was performed using dose optimization techniques as appropriate, variously including the following: *Automated exposure control *Adjustment of mA and/or kV according to patient size (this includes techniques or standardized protocols for targeted exams where dose is matched to indication/reason for exam; i.e. extremities or head) *Use of iterative reconstruction technique DLP: 252 mGy-cm FINDINGS: There is a superior endplate compression fracture of T12 with approximately 40% loss of height of the vertebral body in this location. There is retropulsion of a central fracture fragment by approximately 7 mm with the bony fragment measuring approximately 1.2 x 0.9 cm in size and lying about the central dorsal aspect of the superior T12 vertebral body and the T11-T12 disc space. The central thecal sac AP dimension is approximately 1.1 cm at this level. Paraspinal muscle fat planes are maintained and no significant hematoma is appreciated. No posterior element fracture is appreciated. There is some bibasilar interstitial lung disease seen bilaterally consistent with dependent atelectasis. No pleural effusions identified on these limited images. CT/CT thoracic spine pre vert IMPRESSION: T12 compression fracture as described above with retropulsed fracture fragment centrally.
--- NOTE | ~2022-09-05 | IR_ITS ---
PROCEDURE: IR THORACIC VERTEBROPLASTY CLINICAL INFORMATION: Acute compression fracture T12 vertebra. Osteoporosis. History of estrogen deficiency. COMPARISON: None available. TECHNIQUE: Following explaining fluoroscopy-guided T12 bipedicle approach kyphoplasty procedure, benefits and risk were explained. Patient was placed prone on fluoroscopy table and T12 vertebra was identified. Both pedicles were marked on the skin. The area marked on the skin was cleaned and draped in the usual sterile manner with 2% chlorhexidine solution. Sterile drape, sterile gown, mask, cap and gloves worn during the exam. 1% lidocaine was injected on the skin overlying the right pedicle. Through a small skin incision a 16-gauge Kyphon needle was advanced from the skin to the level of right pedicle and through the pedicle into the posterior one thirds of T12 vertebra. A similar 16-gauge needle advanced through the left pedicle into posterior one thirds of L3 vertebra. A simple hand drill was advanced to the right and left needle and a track created. A curette was inserted through the right and left needles and space was created in the anterior and mid one thirds of T12 vertebra. Subsequently premixed polymethyl methacrylate was injected to right needle followed by left needle under continuous AP, oblique and lateral fluoroscopy monitoring. After achieving adequate amount of cement both needles were withdrawn and complete hemostasis achieved at puncture site. Simple Band-Aid applied postprocedure. Patient tolerated procedure extremely well. CT was to be obtained. FINDINGS: On preliminary fluoroscopy imaging there is loss of T12 superior endplate/vertebral height, approximately 30-40%. The adjacent T11 and L1 vertebral heights are normal. Under continuous fluoroscopy guidance premixed cement was injected to the right and left needle. There was adequate cement obtained in the vertebra with minimal extravasation of cement through the inferior endplate fracture in the edges and T12-L1 disc level. FLUOROSCOPY TIME: 11.7 minutes. DOSE AREA PRODUCT: 3869 uGy-m2 (microgray-meter squared). IR/IR kyphoplasty thoracic IMPRESSION: Successful fluoroscopic injection of T12 and L1 vertebra methacrylate and complete hemostasis achieved by 16-gauge needle. There is approximately 40% loss of T12 vertebral height.
[2022-09-05] MEDS: Lactated Ringers 1,000 ML 100 ML IVCONT (12:48)
[2022-09-05 13:03] LABS: MANUAL DIFF FLAG NO
[2022-09-05 13:05] LABS: Basophils Percent Auto 0.3 % (0-2); Eosinophils Percent Auto 0.2 % (0-4); Hematocrit 36.6 % (37.0-47.0); Hemoglobin 11.8 g/dl (12.0-16.0); Imm Gran Abs Auto 0.01 X10*3/uL (0.00-0.03); Imm Gran Pct Auto 0.2 % (0.0-0.4); Lymphocytes Absolute Auto 0.9 X10*3/uL (1.2-4.9); Lymphocytes Percent Auto 15.3 % (20-40); Mean Corpuscular HGB Conc 32.2 g/dl (31.0-35.0); Mean Corpuscular Hemoglobin 31.1 pg (27.0-33.0); Mean Corpuscular Volume 96.6 fL (80.0-98.0); Mean Platelet Volume 8.8 fL (9.4-12.3); Monocytes Absolute Auto 0.3 X10*3/uL (0.1-1.2); Monocytes Percent Auto 5.2 % (2-11); Neutrophils Absolute Auto 4.8 x10*3/uL (2.0-8.3); Neutrophils Percent Auto 78.8 % (45-73); Platelet Count 196 X10*3/uL (160-400); Red Blood Count 3.79 X10*6/uL (4.20-5.50); Red Cell Distribution Width 14.5 % (11.0-16.0); White Blood Count 6.1 X10*3/uL (4.8-10.8)
[2022-09-05 13:10] LABS: INTERNATIONAL NORM RATIO 0.9 (0.9-1.1); Prothrombin Time 10.4 SEC (10.0-13.1)
[2022-09-05 13:13] LABS: Partial Thromboplastin Time 29.1 SEC (26.0-36.4)
[2022-09-05 14:10] LABS: Blood Urea Nitrogen 13 mg/dL (9-16); Chloride 111 mmol/L (96-108); Creatinine Clr Calc Pharmacy 91.5; Estimated Glomerular Filt Rate > 60; Potassium 3.9 mmol/L (3.3-5.1); Sodium 142 mmol/L (135-145)
[2022-09-06 04:33] LABS: Carbon Dioxide 21 mmol/L (22-29)
== END 2022-09-05 18:12 | disposition home or self-care (01) ==
PROVIDERS: Radiology Diagnostic Radiology; PCP Internal Medicine Medical Oncology; Visit Provider Internal Medicine
DX: S22.080A Wedge compression fracture of T11-T12 vertebra, initial encounter for closed fracture (principal); D69.3 Immune thrombocytopenic purpura; M85.80 Other specified disorders of bone density and structure, unspecified site; Z79.52 Long term (current) use of systemic steroids; X58.XXXA Exposure to other specified factors, initial encounter; Y93.9 Activity, unspecified; Y92.9 Unspecified place or not applicable; Y99.9 Unspecified external cause status
CPT/HCPCS: 22513; 36415; 72128; 80051; 82565; 84520; 85025; 85610; 85730; J0690; J2250; J3010; Q9967

== ENCOUNTER 2022-09-27 07:33 | Outpatient (REF) | payer MEDICARE, BC, SELFPAY ==
[2022-09-27 07:50] LABS: MANUAL DIFF FLAG NO
[2022-09-27 09:03] LABS: Basophils Percent Auto 0.6 % (0-2); Eosinophils Absolute Auto 0.1 X10*3/uL (0.0-0.4); Eosinophils Percent Auto 0.9 % (0-4); Hematocrit 36.7 % (37.0-47.0); Hemoglobin 11.6 g/dl (12.0-16.0); Imm Gran Abs Auto 0.03 X10*3/uL (0.00-0.03); Imm Gran Pct Auto 0.4 % (0.0-0.4); Lymphocytes Absolute Auto 1.6 X10*3/uL (1.2-4.9); Mean Corpuscular HGB Conc 31.6 g/dl (31.0-35.0); Mean Corpuscular Hemoglobin 30.8 pg (27.0-33.0); Mean Corpuscular Volume 97.3 fL (80.0-98.0); Mean Platelet Volume 9.3 fL (9.4-12.3); Monocytes Absolute Auto 0.7 X10*3/uL (0.1-1.2); Monocytes Percent Auto 9.7 % (2-11); Neutrophils Absolute Auto 4.4 x10*3/uL (2.0-8.3); Neutrophils Percent Auto 64.4 % (45-73); Platelet Count 216 X10*3/uL (160-400); Red Blood Count 3.77 X10*6/uL (4.20-5.50); Red Cell Distribution Width 14.3 % (11.0-16.0); White Blood Count 6.8 X10*3/uL (4.8-10.8)
== END 2022-09-27 07:34 | disposition home or self-care (01) ==
LOC: HO.LAB 07:33
PROVIDERS: PCP Internal Medicine; Visit Provider Internal Medicine Medical Oncology
DX: D69.3 Immune thrombocytopenic purpura (principal)
CPT/HCPCS: 36415; 85025

== ENCOUNTER 2022-10-18 06:57 | Outpatient (REF) | payer MEDICARE, BC, SELFPAY ==
[2022-10-18 07:05] LABS: MANUAL DIFF FLAG NO
[2022-10-18 08:02] LABS: Basophils Percent Auto 0.6 % (0-2); Eosinophils Absolute Auto 0.1 X10*3/uL (0.0-0.4); Eosinophils Percent Auto 0.8 % (0-4); Hematocrit 36.4 % (37.0-47.0); Hemoglobin 11.5 g/dl (12.0-16.0); Imm Gran Abs Auto 0.02 X10*3/uL (0.00-0.03); Imm Gran Pct Auto 0.3 % (0.0-0.4); Lymphocytes Absolute Auto 1.7 X10*3/uL (1.2-4.9); Lymphocytes Percent Auto 25.4 % (20-40); Mean Corpuscular HGB Conc 31.6 g/dl (31.0-35.0); Mean Corpuscular Hemoglobin 31.3 pg (27.0-33.0); Mean Corpuscular Volume 98.9 fL (80.0-98.0); Monocytes Absolute Auto 0.7 X10*3/uL (0.1-1.2); Monocytes Percent Auto 10.8 % (2-11); Neutrophils Percent Auto 62.1 % (45-73); Platelet Count 224 X10*3/uL (160-400); Red Blood Count 3.68 X10*6/uL (4.20-5.50); Red Cell Distribution Width 14.1 % (11.0-16.0); White Blood Count 6.5 X10*3/uL (4.8-10.8)
== END 2022-10-18 06:58 | disposition home or self-care (01) ==
LOC: HO.LABR 06:57
PROVIDERS: PCP Internal Medicine; Visit Provider Internal Medicine Medical Oncology
DX: D69.3 Immune thrombocytopenic purpura (principal)
CPT/HCPCS: 36415; 85025

== ENCOUNTER 2022-11-08 07:31 | Outpatient (REF) | payer MEDICARE, BC, SELFPAY ==
[2022-11-08 07:45] LABS: MANUAL DIFF FLAG NO
[2022-11-08 09:15] LABS: Basophils Percent Auto 0.5 % (0-2); Eosinophils Absolute Auto 0.1 X10*3/uL (0.0-0.4); Eosinophils Percent Auto 0.8 % (0-4); Hematocrit 37.9 % (37.0-47.0); Imm Gran Abs Auto 0.03 X10*3/uL (0.00-0.03); Imm Gran Pct Auto 0.5 % (0.0-0.4); Lymphocytes Absolute Auto 1.6 X10*3/uL (1.2-4.9); Lymphocytes Percent Auto 23.3 % (20-40); Mean Corpuscular HGB Conc 31.7 g/dl (31.0-35.0); Mean Corpuscular Hemoglobin 30.9 pg (27.0-33.0); Mean Corpuscular Volume 97.7 fL (80.0-98.0); Mean Platelet Volume 9.3 fL (9.4-12.3); Monocytes Absolute Auto 0.7 X10*3/uL (0.1-1.2); Monocytes Percent Auto 9.9 % (2-11); Neutrophils Absolute Auto 4.3 x10*3/uL (2.0-8.3); Platelet Count 220 X10*3/uL (160-400); Red Blood Count 3.88 X10*6/uL (4.20-5.50); Red Cell Distribution Width 14.2 % (11.0-16.0); White Blood Count 6.6 X10*3/uL (4.8-10.8)
== END 2022-11-08 07:32 | disposition home or self-care (01) ==
LOC: HO.LABR 07:31
PROVIDERS: PCP Internal Medicine Medical Oncology; Visit Provider Internal Medicine Medical Oncology
DX: D69.3 Immune thrombocytopenic purpura (principal)
CPT/HCPCS: 36415; 85025

== ENCOUNTER 2022-11-29 07:35 | Outpatient (REF) | payer MEDICARE, BC, SELFPAY ==
[2022-11-29 07:51] LABS: MANUAL DIFF FLAG NO
[2022-11-29 08:53] LABS: Basophils Percent Auto 0.3 % (0-2); Eosinophils Absolute Auto 0.1 X10*3/uL (0.0-0.4); Eosinophils Percent Auto 1.1 % (0-4); Hematocrit 37.4 % (37.0-47.0); Hemoglobin 12.1 g/dl (12.0-16.0); Imm Gran Abs Auto 0.01 X10*3/uL (0.00-0.03); Imm Gran Pct Auto 0.2 % (0.0-0.4); Lymphocytes Absolute Auto 1.5 X10*3/uL (1.2-4.9); Lymphocytes Percent Auto 23.4 % (20-40); Mean Corpuscular HGB Conc 32.4 g/dl (31.0-35.0); Mean Corpuscular Hemoglobin 31.4 pg (27.0-33.0); Mean Corpuscular Volume 97.1 fL (80.0-98.0); Monocytes Absolute Auto 0.6 X10*3/uL (0.1-1.2); Monocytes Percent Auto 9.3 % (2-11); Neutrophils Absolute Auto 4.2 x10*3/uL (2.0-8.3); Neutrophils Percent Auto 65.7 % (45-73); Platelet Count 213 X10*3/uL (160-400); Red Blood Count 3.85 X10*6/uL (4.20-5.50); Red Cell Distribution Width 14.3 % (11.0-16.0); White Blood Count 6.4 X10*3/uL (4.8-10.8)
== END 2022-11-29 07:36 | disposition home or self-care (01) ==
LOC: HO.LABR 07:35
PROVIDERS: PCP Internal Medicine Medical Oncology; Visit Provider Internal Medicine Medical Oncology
DX: D69.3 Immune thrombocytopenic purpura (principal)
CPT/HCPCS: 36415; 85025

== ENCOUNTER 2022-12-20 06:54 | Outpatient (REF) | payer MEDICARE, BC, SELFPAY ==
[2022-12-20 07:02] LABS: MANUAL DIFF FLAG NO
[2022-12-20 07:12] LABS: Basophils Percent Auto 0.5 % (0-2); Eosinophils Percent Auto 0.5 % (0-4); Imm Gran Abs Auto 0.02 X10*3/uL (0.00-0.03); Imm Gran Pct Auto 0.3 % (0.0-0.4); Lymphocytes Absolute Auto 1.4 X10*3/uL (1.2-4.9); Lymphocytes Percent Auto 23.1 % (20-40); Mean Corpuscular HGB Conc 31.6 g/dl (31.0-35.0); Mean Corpuscular Volume 98.2 fL (80.0-98.0); Mean Platelet Volume 8.7 fL (9.4-12.3); Monocytes Absolute Auto 0.6 X10*3/uL (0.1-1.2); Monocytes Percent Auto 9.6 % (2-11); Neutrophils Absolute Auto 3.9 x10*3/uL (2.0-8.3); Platelet Count 201 X10*3/uL (160-400); Red Blood Count 3.87 X10*6/uL (4.20-5.50); Red Cell Distribution Width 13.9 % (11.0-16.0); White Blood Count 5.9 X10*3/uL (4.8-10.8)
== END 2022-12-20 06:55 | disposition home or self-care (01) ==
LOC: HO.LABR 06:54
PROVIDERS: PCP Internal Medicine Medical Oncology; Visit Provider Internal Medicine Medical Oncology
DX: D69.3 Immune thrombocytopenic purpura (principal)
CPT/HCPCS: 36415; 85025

== ENCOUNTER 2023-01-17 07:20 | Outpatient (REF) | payer MEDICARE, BC, SELFPAY ==
[2023-01-17 07:31] LABS: MANUAL DIFF FLAG NO
[2023-01-17 07:49] LABS: Basophils Percent Auto 0.4 % (0-2); Eosinophils Percent Auto 0.8 % (0-4); Imm Gran Abs Auto 0.03 X10*3/uL (0.00-0.03); Imm Gran Pct Auto 0.6 % (0.0-0.4); Lymphocytes Absolute Auto 1.5 X10*3/uL (1.2-4.9); Lymphocytes Percent Auto 28.8 % (20-40); Mean Corpuscular HGB Conc 31.6 g/dl (31.0-35.0); Mean Platelet Volume 9.2 fL (9.4-12.3); Monocytes Absolute Auto 0.7 X10*3/uL (0.1-1.2); Monocytes Percent Auto 12.4 % (2-11); Platelet Count 212 X10*3/uL (160-400); Red Cell Distribution Width 13.7 % (11.0-16.0); White Blood Count 5.3 X10*3/uL (4.8-10.8)
== END 2023-01-17 07:21 | disposition home or self-care (01) ==
LOC: HO.LABR 07:20
PROVIDERS: PCP Internal Medicine Medical Oncology; Visit Provider Internal Medicine Medical Oncology
DX: D69.3 Immune thrombocytopenic purpura (principal)
CPT/HCPCS: 36415; 85025

== ENCOUNTER 2023-02-01 07:21 | Outpatient (REF) | payer MEDICARE, BC, SELFPAY ==
[2023-02-01 07:32] LABS: MANUAL DIFF FLAG NO
[2023-02-01 07:53] LABS: Basophils Percent Auto 0.6 % (0-2); Eosinophils Percent Auto 0.6 % (0-4); Hematocrit 35.4 % (37.0-47.0); Hemoglobin 11.4 g/dl (12.0-16.0); Imm Gran Abs Auto 0.02 X10*3/uL (0.00-0.03); Imm Gran Pct Auto 0.4 % (0.0-0.4); Lymphocytes Absolute Auto 1.7 X10*3/uL (1.2-4.9); Lymphocytes Percent Auto 32.4 % (20-40); Mean Corpuscular HGB Conc 32.2 g/dl (31.0-35.0); Mean Corpuscular Hemoglobin 31.5 pg (27.0-33.0); Mean Corpuscular Volume 97.8 fL (80.0-98.0); Mean Platelet Volume 9.3 fL (9.4-12.3); Monocytes Absolute Auto 0.6 X10*3/uL (0.1-1.2); Monocytes Percent Auto 11.2 % (2-11); Neutrophils Absolute Auto 2.9 x10*3/uL (2.0-8.3); Neutrophils Percent Auto 54.8 % (45-73); Platelet Count 155 X10*3/uL (160-400); Red Blood Count 3.62 X10*6/uL (4.20-5.50); Red Cell Distribution Width 14.4 % (11.0-16.0); White Blood Count 5.2 X10*3/uL (4.8-10.8)
[2023-02-01 08:19] LABS: Alanine Aminotransferase 16 U/L (0-31); Albumin Level 3.6 g/dL (3.5-5.0); Alkaline Phosphatase 42 U/L (39-117); Anion Gap 15 (12-20); Aspartate Amino Transferase 22 U/L (5-31); Bilirubin Total 0.3 mg/dL (0.0-1.0); Blood Urea Nitrogen 14 mg/dL (9-16); Calcium 9.3 mg/dL (8.4-10.2); Carbon Dioxide 24 mmol/L (22-29); Chloride 112 mmol/L (96-108); Estimated Glomerular Filt Rate > 60; Glucose Random 100 mg/dL (60-115); Potassium 4.6 mmol/L (3.3-5.1); Sodium 146 mmol/L (135-145); Total Protein 6.4 g/dL (6.5-8.0)
[2023-02-02 14:39] LABS: Carbohydrate Antigen 19-9 13 U/mL (<34)
== END 2023-02-01 07:22 | disposition home or self-care (01) ==
LOC: HO.LAB 07:21
PROVIDERS: PCP Internal Medicine Medical Oncology; Visit Provider Internal Medicine Medical Oncology
DX: D69.3 Immune thrombocytopenic purpura (principal); N63.10 Unspecified lump in the right breast, unspecified quadrant; D68.62 Lupus anticoagulant syndrome
CPT/HCPCS: 36415; 80053; 85025; 86301

== ENCOUNTER 2023-02-07 07:30 | Outpatient (REF) | payer MEDICARE, BC, SELFPAY ==
[2023-02-07 07:37] LABS: MANUAL DIFF FLAG NO
[2023-02-07 08:01] LABS: Basophils Percent Auto 0.6 % (0-2); Eosinophils Percent Auto 0.6 % (0-4); Hematocrit 37.3 % (37.0-47.0); Hemoglobin 12.1 g/dl (12.0-16.0); Imm Gran Abs Auto 0.01 X10*3/uL (0.00-0.03); Imm Gran Pct Auto 0.2 % (0.0-0.4); Lymphocytes Absolute Auto 1.4 X10*3/uL (1.2-4.9); Lymphocytes Percent Auto 28.7 % (20-40); Mean Corpuscular HGB Conc 32.4 g/dl (31.0-35.0); Mean Corpuscular Hemoglobin 30.9 pg (27.0-33.0); Mean Corpuscular Volume 95.4 fL (80.0-98.0); Mean Platelet Volume 8.9 fL (9.4-12.3); Monocytes Absolute Auto 0.6 X10*3/uL (0.1-1.2); Monocytes Percent Auto 12.4 % (2-11); Neutrophils Absolute Auto 2.9 x10*3/uL (2.0-8.3); Neutrophils Percent Auto 57.5 % (45-73); Platelet Count 192 X10*3/uL (160-400); Red Blood Count 3.91 X10*6/uL (4.20-5.50); Red Cell Distribution Width 14.6 % (11.0-16.0)
== END 2023-02-07 07:31 | disposition home or self-care (01) ==
LOC: HO.LABR 07:30
PROVIDERS: PCP Internal Medicine Medical Oncology; Visit Provider Internal Medicine Medical Oncology
DX: D69.3 Immune thrombocytopenic purpura (principal)
CPT/HCPCS: 36415; 85025

== ENCOUNTER 2023-02-21 13:17 | Outpatient (REF) | payer MEDICARE, BC, SELFPAY | END 2023-02-21 13:18 | disposition home or self-care (01) | LOC: HO.LABR 13:17 | PROVIDERS: PCP Internal Medicine Medical Oncology; Visit Provider Internal Medicine Medical Oncology | DX: D69.3 Immune thrombocytopenic purpura (principal) | CPT/HCPCS: 36415; 85025 ==

== ENCOUNTER 2023-03-14 07:43 | Outpatient (REF) | payer MEDICARE, BC, SELFPAY ==
[2023-03-14 07:58] LABS: MANUAL DIFF FLAG NO
[2023-03-14 08:17] LABS: Basophils Percent Auto 0.6 % (0-2); Eosinophils Absolute Auto 0.1 X10*3/uL (0.0-0.4); Eosinophils Percent Auto 0.8 % (0-4); Hematocrit 36.6 % (37.0-47.0); Hemoglobin 11.6 g/dl (12.0-16.0); Imm Gran Abs Auto 0.01 X10*3/uL (0.00-0.03); Imm Gran Pct Auto 0.2 % (0.0-0.4); Lymphocytes Absolute Auto 1.5 X10*3/uL (1.2-4.9); Lymphocytes Percent Auto 23.7 % (20-40); Mean Corpuscular HGB Conc 31.7 g/dl (31.0-35.0); Mean Corpuscular Hemoglobin 31.5 pg (27.0-33.0); Mean Corpuscular Volume 99.5 fL (80.0-98.0); Mean Platelet Volume 9.3 fL (9.4-12.3); Monocytes Absolute Auto 0.8 X10*3/uL (0.1-1.2); Monocytes Percent Auto 12.7 % (2-11); Neutrophils Absolute Auto 3.9 x10*3/uL (2.0-8.3); Platelet Count 203 X10*3/uL (160-400); Red Blood Count 3.68 X10*6/uL (4.20-5.50); Red Cell Distribution Width 14.6 % (11.0-16.0); White Blood Count 6.2 X10*3/uL (4.8-10.8)
== END 2023-03-14 07:44 | disposition home or self-care (01) ==
LOC: HO.LAB 07:43
PROVIDERS: Visit Provider Internal Medicine Medical Oncology
DX: D69.3 Immune thrombocytopenic purpura (principal)
CPT/HCPCS: 36415; 85025

== ENCOUNTER 2023-04-04 | Outpatient (REF) | payer MEDICARE, BC, SELFPAY ==
[2023-04-04 07:49] LABS: MANUAL DIFF FLAG NO
[2023-04-04 07:58] LABS: Basophils Percent Auto 0.6 % (0-2); Eosinophils Absolute Auto 0.1 X10*3/uL (0.0-0.4); Hematocrit 35.5 % (37.0-47.0); Hemoglobin 11.3 g/dl (12.0-16.0); Imm Gran Abs Auto 0.01 X10*3/uL (0.00-0.03); Imm Gran Pct Auto 0.2 % (0.0-0.4); Lymphocytes Absolute Auto 1.5 X10*3/uL (1.2-4.9); Lymphocytes Percent Auto 30.3 % (20-40); Mean Corpuscular HGB Conc 31.8 g/dl (31.0-35.0); Mean Corpuscular Hemoglobin 31.1 pg (27.0-33.0); Mean Corpuscular Volume 97.8 fL (80.0-98.0); Mean Platelet Volume 8.6 fL (9.4-12.3); Monocytes Absolute Auto 0.5 X10*3/uL (0.1-1.2); Monocytes Percent Auto 10.9 % (2-11); Neutrophils Absolute Auto 2.8 x10*3/uL (2.0-8.3); Platelet Count 189 X10*3/uL (160-400); Red Blood Count 3.63 X10*6/uL (4.20-5.50); Red Cell Distribution Width 14.6 % (11.0-16.0)
== END 2023-04-04 00:01 | disposition home or self-care (01) ==
LOC: HO.LABR
PROVIDERS: Visit Provider Internal Medicine Medical Oncology
DX: Z13.89 Encounter for screening for other disorder (principal)
CPT/HCPCS: 36415; 85025

== ENCOUNTER 2023-04-25 07:55 | Outpatient (REF) | payer MEDICARE, BC, SELFPAY ==
[2023-04-25 08:15] LABS: MANUAL DIFF FLAG NO
[2023-04-25 08:49] LABS: Basophils Percent Auto 0.6 % (0-2); Eosinophils Percent Auto 0.6 % (0-4); Hematocrit 36.1 % (37.0-47.0); Hemoglobin 11.6 g/dl (12.0-16.0); Imm Gran Abs Auto 0.03 X10*3/uL (0.00-0.03); Imm Gran Pct Auto 0.5 % (0.0-0.4); Lymphocytes Absolute Auto 1.4 X10*3/uL (1.2-4.9); Lymphocytes Percent Auto 20.8 % (20-40); Mean Corpuscular HGB Conc 32.1 g/dl (31.0-35.0); Mean Corpuscular Hemoglobin 31.3 pg (27.0-33.0); Mean Corpuscular Volume 97.3 fL (80.0-98.0); Mean Platelet Volume 9.5 fL (9.4-12.3); Monocytes Absolute Auto 0.7 X10*3/uL (0.1-1.2); Monocytes Percent Auto 9.8 % (2-11); Neutrophils Absolute Auto 4.5 x10*3/uL (2.0-8.3); Neutrophils Percent Auto 67.7 % (45-73); Platelet Count 211 X10*3/uL (160-400); Red Blood Count 3.71 X10*6/uL (4.20-5.50); Red Cell Distribution Width 14.7 % (11.0-16.0); White Blood Count 6.6 X10*3/uL (4.8-10.8)
== END 2023-04-25 07:56 | disposition home or self-care (01) ==
LOC: HO.LABR 07:55
PROVIDERS: PCP Internal Medicine; Visit Provider Internal Medicine Medical Oncology
DX: D69.3 Immune thrombocytopenic purpura (principal)
CPT/HCPCS: 36415; 85025

== ENCOUNTER 2023-05-16 07:03 | Outpatient (REF) | payer MEDICARE, BC, SELFPAY ==
[2023-05-16 07:21] LABS: MANUAL DIFF FLAG NO
[2023-05-16 07:58] LABS: Basophils Percent Auto 0.6 % (0-2); Eosinophils Absolute Auto 0.1 X10*3/uL (0.0-0.4); Eosinophils Percent Auto 0.9 % (0-4); Hematocrit 35.1 % (37.0-47.0); Hemoglobin 11.2 g/dl (12.0-16.0); Imm Gran Abs Auto 0.02 X10*3/uL (0.00-0.03); Imm Gran Pct Auto 0.3 % (0.0-0.4); Lymphocytes Percent Auto 31.2 % (20-40); Mean Corpuscular HGB Conc 31.9 g/dl (31.0-35.0); Mean Corpuscular Hemoglobin 31.5 pg (27.0-33.0); Mean Corpuscular Volume 98.9 fL (80.0-98.0); Mean Platelet Volume 9.5 fL (9.4-12.3); Monocytes Absolute Auto 0.7 X10*3/uL (0.1-1.2); Monocytes Percent Auto 10.7 % (2-11); Neutrophils Absolute Auto 3.6 x10*3/uL (2.0-8.3); Neutrophils Percent Auto 56.3 % (45-73); Platelet Count 210 X10*3/uL (160-400); Red Blood Count 3.55 X10*6/uL (4.20-5.50); Red Cell Distribution Width 14.4 % (11.0-16.0); White Blood Count 6.3 X10*3/uL (4.8-10.8)
== END 2023-05-16 07:04 | disposition home or self-care (01) ==
LOC: HO.LABR 07:03
PROVIDERS: PCP Internal Medicine; Visit Provider Internal Medicine Medical Oncology
DX: Z13.89 Encounter for screening for other disorder (principal)
CPT/HCPCS: 36415; 85025

== ENCOUNTER 2023-05-21 14:53 | Outpatient (REF) | payer MEDICARE, BC, SELFPAY ==
--- NOTE | ~2023-05-21 | XR_ITS ---
EXAMINATION: XR LUMBAR SPINE XR SACRUM/COCCYX CLINICAL INFORMATION: Fell 2 days ago. COMPARISON: CT thoracic spine 09/05/2022. X-ray lumbar spine and chest x-ray 12/29/2019. TECHNIQUE: 4 views of the lumbar spine. 2 AP views of the sacrum/coccyx. FINDINGS: LUMBAR SPINE: Degenerative changes in the imaged lower thoracic spine. Dense material characteristic of vertebroplasty material redemonstrated as noted on CT scan of the chest of 09/05/2022. Slight leftward curvature of the lumbar spine. Progression of facet arthritis in the mid to lower lumbar spine. Atherosclerotic aortic calcifications. Progression of multilevel degenerative changes with loss of disc space height, most notable at L4-L5. Moderate loss of disc space height at L3-L4 and L5-S1. Minimal grade 1 retrolisthesis of L3 on L4 and of L4 on L5. SACRUM/COCCYX: The bones are diffusely demineralized. Severe degenerative changes with sclerosis and narrowing in the bilateral sacroiliac joints. Very limited, incomplete images of the bilateral hips demonstrate moderate degenerative changes. XR/XR sacrum coccyx min 2V IMPRESSION: 1. Progression of multilevel lumbar spondylosis, most notable at L4-L5. 2. Progression of facet arthritis in the mid to lower lumbar spine. 3. Severe degenerative changes in the bilateral sacroiliac joints.
--- NOTE | ~2023-05-21 | XR_ITS ---
EXAMINATION: XR LUMBAR SPINE XR SACRUM/COCCYX CLINICAL INFORMATION: Fell 2 days ago. COMPARISON: CT thoracic spine 09/05/2022. X-ray lumbar spine and chest x-ray 12/29/2019. TECHNIQUE: 4 views of the lumbar spine. 2 AP views of the sacrum/coccyx. FINDINGS: LUMBAR SPINE: Degenerative changes in the imaged lower thoracic spine. Dense material characteristic of vertebroplasty material redemonstrated as noted on CT scan of the chest of 09/05/2022. Slight leftward curvature of the lumbar spine. Progression of facet arthritis in the mid to lower lumbar spine. Atherosclerotic aortic calcifications. Progression of multilevel degenerative changes with loss of disc space height, most notable at L4-L5. Moderate loss of disc space height at L3-L4 and L5-S1. Minimal grade 1 retrolisthesis of L3 on L4 and of L4 on L5. SACRUM/COCCYX: The bones are diffusely demineralized. Severe degenerative changes with sclerosis and narrowing in the bilateral sacroiliac joints. Very limited, incomplete images of the bilateral hips demonstrate moderate degenerative changes. XR/XR lumbar spine 2-3V IMPRESSION: 1. Progression of multilevel lumbar spondylosis, most notable at L4-L5. 2. Progression of facet arthritis in the mid to lower lumbar spine. 3. Severe degenerative changes in the bilateral sacroiliac joints.
== END 2023-05-21 14:54 | disposition home or self-care (01) ==
LOC: HO.HMGCX 14:53
PROVIDERS: PCP Internal Medicine; Visit Provider Internal Medicine
DX: M53.3 Sacrococcygeal disorders, not elsewhere classified (principal); Z91.81 History of falling
CPT/HCPCS: 72100; 72220

== ENCOUNTER 2023-06-06 07:38 | Outpatient (REF) | payer MEDICARE, BC, SELFPAY ==
[2023-06-06 08:03] LABS: MANUAL DIFF FLAG NO
[2023-06-06 08:29] LABS: Basophils Percent Auto 0.5 % (0-2); Eosinophils Absolute Auto 0.1 X10*3/uL (0.0-0.4); Hematocrit 37.1 % (37.0-47.0); Hemoglobin 11.5 g/dl (12.0-16.0); Imm Gran Abs Auto 0.02 X10*3/uL (0.00-0.03); Imm Gran Pct Auto 0.3 % (0.0-0.4); Lymphocytes Absolute Auto 1.6 X10*3/uL (1.2-4.9); Mean Corpuscular Hemoglobin 31.2 pg (27.0-33.0); Mean Corpuscular Volume 100.5 fL (80.0-98.0); Monocytes Absolute Auto 0.7 X10*3/uL (0.1-1.2); Monocytes Percent Auto 10.6 % (2-11); Neutrophils Absolute Auto 3.9 x10*3/uL (2.0-8.3); Neutrophils Percent Auto 61.6 % (45-73); Platelet Count 230 X10*3/uL (160-400); Red Blood Count 3.69 X10*6/uL (4.20-5.50); Red Cell Distribution Width 14.6 % (11.0-16.0); White Blood Count 6.3 X10*3/uL (4.8-10.8)
== END 2023-06-06 07:39 | disposition home or self-care (01) ==
LOC: HO.LABR 07:38
PROVIDERS: PCP Internal Medicine; Visit Provider Internal Medicine Medical Oncology
DX: D69.3 Immune thrombocytopenic purpura (principal)
CPT/HCPCS: 36415; 85025

== ENCOUNTER 2023-06-27 07:40 | Outpatient (REF) | payer MEDICARE, BC, SELFPAY ==
[2023-06-27 07:25] LABS: MANUAL DIFF FLAG NO
[2023-06-27 08:06] LABS: Basophils Percent Auto 0.3 % (0-2); Eosinophils Percent Auto 0.7 % (0-4); Hemoglobin 10.8 g/dl (12.0-16.0); Imm Gran Abs Auto 0.03 X10*3/uL (0.00-0.03); Imm Gran Pct Auto 0.5 % (0.0-0.4); Lymphocytes Absolute Auto 1.6 X10*3/uL (1.2-4.9); Lymphocytes Percent Auto 27.1 % (20-40); Mean Corpuscular HGB Conc 31.8 g/dl (31.0-35.0); Mean Corpuscular Hemoglobin 31.8 pg (27.0-33.0); Mean Platelet Volume 9.1 fL (9.4-12.3); Monocytes Absolute Auto 0.7 X10*3/uL (0.1-1.2); Neutrophils Absolute Auto 3.6 x10*3/uL (2.0-8.3); Neutrophils Percent Auto 60.4 % (45-73); Platelet Count 195 X10*3/uL (160-400); Red Cell Distribution Width 14.6 % (11.0-16.0)
== END 2023-06-27 07:41 | disposition home or self-care (01) ==
LOC: HO.LABR 07:40
PROVIDERS: PCP Internal Medicine; Visit Provider Internal Medicine Medical Oncology
DX: D69.3 Immune thrombocytopenic purpura (principal)
CPT/HCPCS: 36415; 85025

== ENCOUNTER 2023-07-18 07:42 | Outpatient (REF) | payer MEDICARE, BC, SELFPAY ==
[2023-07-18 07:52] LABS: MANUAL DIFF FLAG NO
[2023-07-18 08:13] LABS: Basophils Percent Auto 0.5 % (0-2); Eosinophils Absolute Auto 0.1 X10*3/uL (0.0-0.4); Hematocrit 35.4 % (37.0-47.0); Hemoglobin 11.5 g/dl (12.0-16.0); Imm Gran Abs Auto 0.02 X10*3/uL (0.00-0.03); Imm Gran Pct Auto 0.3 % (0.0-0.4); Lymphocytes Absolute Auto 1.7 X10*3/uL (1.2-4.9); Lymphocytes Percent Auto 28.2 % (20-40); Mean Corpuscular HGB Conc 32.5 g/dl (31.0-35.0); Mean Corpuscular Hemoglobin 32.3 pg (27.0-33.0); Mean Corpuscular Volume 99.4 fL (80.0-98.0); Monocytes Absolute Auto 0.6 X10*3/uL (0.1-1.2); Monocytes Percent Auto 10.4 % (2-11); Neutrophils Absolute Auto 3.5 x10*3/uL (2.0-8.3); Neutrophils Percent Auto 59.6 % (45-73); Platelet Count 193 X10*3/uL (160-400); Red Blood Count 3.56 X10*6/uL (4.20-5.50); White Blood Count 5.9 X10*3/uL (4.8-10.8)
== END 2023-07-18 07:43 | disposition home or self-care (01) ==
LOC: HO.LABR 07:42
PROVIDERS: PCP Internal Medicine; Visit Provider Internal Medicine Medical Oncology
DX: D69.3 Immune thrombocytopenic purpura (principal)
CPT/HCPCS: 36415; 85025

== ENCOUNTER 2023-08-08 07:19 | Outpatient (REF) | payer MEDICARE, BC, SELFPAY ==
[2023-08-08 07:34] LABS: MANUAL DIFF FLAG NO
[2023-08-08 08:37] LABS: Basophils Percent Auto 0.7 % (0-2); Eosinophils Percent Auto 0.7 % (0-4); Hematocrit 35.8 % (37.0-47.0); Hemoglobin 11.6 g/dl (12.0-16.0); Imm Gran Abs Auto 0.02 X10*3/uL (0.00-0.03); Imm Gran Pct Auto 0.3 % (0.0-0.4); Immature Retic Fraction 10.2 % (3.0-15.9); Lymphocytes Absolute Auto 1.4 X10*3/uL (1.2-4.9); Lymphocytes Percent Auto 23.3 % (20-40); Mean Corpuscular HGB Conc 32.4 g/dl (31.0-35.0); Mean Corpuscular Hemoglobin 32.4 pg (27.0-33.0); Mean Platelet Volume 9.2 fL (9.4-12.3); Monocytes Absolute Auto 0.6 X10*3/uL (0.1-1.2); Monocytes Percent Auto 10.1 % (2-11); Neutrophils Absolute Auto 3.9 x10*3/uL (2.0-8.3); Neutrophils Percent Auto 64.9 % (45-73); Platelet Count 217 X10*3/uL (160-400); Red Blood Count 3.58 X10*6/uL (4.20-5.50); Red Cell Distribution Width 14.6 % (11.0-16.0); Retic HGB Equivalent 33.9 pg (30.0-35.0); Reticulocyte Percent 1.6 % (0.5-1.8); Reticulocytes Absolute 0.058 X10*6/uL (0.026-0.095); White Blood Count 5.9 X10*3/uL (4.8-10.8)
[2023-08-08 09:18] LABS: Alanine Aminotransferase 14 U/L (0-31); Albumin Level 3.8 g/dL (3.5-5.0); Alkaline Phosphatase 40 U/L (39-117); Anion Gap 12 (12-20); Aspartate Amino Transferase 21 U/L (5-31); Bilirubin Total 0.3 mg/dL (0.0-1.0); Blood Urea Nitrogen 12 mg/dL (9-16); Calcium 9.3 mg/dL (8.4-10.2); Carbon Dioxide 28 mmol/L (22-29); Chloride 108 mmol/L (96-108); Estimated Glomerular Filt Rate > 60; Glucose Fasting 100 mg/dL (60-99); Potassium 4.5 mmol/L (3.3-5.1); Sodium 143 mmol/L (135-145); Total Protein 6.9 g/dL (6.5-8.0)
[2023-08-08 09:30] LABS: Ferritin 41 ng/mL (10-250)
[2023-08-08 11:05] LABS: Folate 13.8 ng/mL (> or = 4.0); Vitamin B12 638 pg/mL (200-900)
== END 2023-08-08 07:20 | disposition home or self-care (01) ==
LOC: HO.LAB 07:19
PROVIDERS: PCP Internal Medicine Medical Oncology; Visit Provider Internal Medicine Medical Oncology
DX: D69.3 Immune thrombocytopenic purpura (principal); I10 Essential (primary) hypertension; E53.9 Vitamin B deficiency, unspecified
CPT/HCPCS: 36415; 80053; 82607; 82728; 82746; 85025; 85045

== ENCOUNTER 2023-08-30 07:21 | Outpatient (REF) | payer MEDICARE, BC, SELFPAY ==
[2023-08-30 07:28] LABS: MANUAL DIFF FLAG NO
[2023-08-30 07:48] LABS: Basophils Percent Auto 0.6 % (0-2); Eosinophils Absolute Auto 0.1 X10*3/uL (0.0-0.4); Eosinophils Percent Auto 1.5 % (0-4); Hematocrit 33.7 % (37.0-47.0); Hemoglobin 10.7 g/dl (12.0-16.0); Imm Gran Abs Auto 0.04 X10*3/uL (0.00-0.03); Imm Gran Pct Auto 0.7 % (0.0-0.4); Lymphocytes Absolute Auto 1.5 X10*3/uL (1.2-4.9); Lymphocytes Percent Auto 28.4 % (20-40); Mean Corpuscular HGB Conc 31.8 g/dl (31.0-35.0); Mean Corpuscular Hemoglobin 32.1 pg (27.0-33.0); Mean Corpuscular Volume 101.2 fL (80.0-98.0); Monocytes Absolute Auto 0.6 X10*3/uL (0.1-1.2); Monocytes Percent Auto 10.9 % (2-11); Neutrophils Absolute Auto 3.1 x10*3/uL (2.0-8.3); Neutrophils Percent Auto 57.9 % (45-73); Platelet Count 184 X10*3/uL (160-400); Red Blood Count 3.33 X10*6/uL (4.20-5.50); Red Cell Distribution Width 14.7 % (11.0-16.0); White Blood Count 5.4 X10*3/uL (4.8-10.8)
== END 2023-08-30 07:22 | disposition home or self-care (01) ==
LOC: HO.LABR 07:21
PROVIDERS: PCP Internal Medicine Medical Oncology; Visit Provider Internal Medicine Medical Oncology
DX: D69.3 Immune thrombocytopenic purpura (principal)
CPT/HCPCS: 36415; 85025

== ENCOUNTER 2023-09-11 07:23 | Day surgery (SDC) | payer MEDICARE, BC, SELFPAY ==
[2023-09-09 11:14] VITALS: BMI 27.7
--- NOTE | 2023-09-10 10:31 | P.CONAN_ITS ---
Documented by User: Abena Joy NP 09/10/23 10:34 HPI - Anesthesia Eval Consult details Narrative: 72yo F for Colonoscopy Eliquis for hx PE Prednisone 5mg daily PMFSH Active Problems Active Problems: All Active Problems Current use of anticoagulant therapy (Acute) Pulmonary embolism (Acute) Sepsis (Acute) CAP (community acquired pneumonia) (Acute) Nausea & vomiting (Acute) Viral syndrome (Acute) Past Medical History Medical History Thyroid disease Back pain Hx of transfusion of platelets (~2014) Poor peripheral circulation Hx of bronchitis (~2022) Chest pain Pulmonary air embolism Hypertension Hypercholesterolemia Chronic ITP (idiopathic thrombocytopenia) Family History Family history of problems with anesthesia: No Surgical History Surgical History Hx of kyphoplasty (~08/2022) Hx of colonoscopy History of Problems with Anesthesia: No Social History Social History Household Members: Spouse Housing: House Are you a primary transitions rn care coordinator to a significant other at home: No Do you presently have visiting nurse or other home services: No Alcohol intake: never Patient Tobacco Use Status: Never used Tobacco Use of substances other than those prescribed or required for medical reasons: No Have you been hit, kicked, punched, or otherwise hurt by someone within the past year? If so, by whom?: No Are you DNR?: No Advance Directives: No (will bring DOS) Advance Directives Information Provided: Yes Advance Directives on File: No Recently lost weight without trying: No Nutrition Risks: No Nutritional Risk Patient : No service: No Current occupational status: retired Current occupational exposures/hazards: No Meds Allergies Allergy/AdvReac Type Severity Reaction Status Date / Time Sulfa (Sulfonamide Allergy Severe Rash Verified 09/11/23 07:42 Antibiotics) whole body rash Penicillins Allergy Intermediate Abdominal Verified 09/11/23 07:42 Pain all cillins Home Medications ?Medication ?Instructions ?Recorded ?Confirmed ?Last Taken ?Type levothyroxine 50 mcg tablet 50 mcg PO DAILY 12/15/19 09/09/23 09/11/23 05:00 History rosuvastatin 5 mg tablet 5 mg PO BEDTIME 12/15/19 09/09/23 09/03/22 History apixaban 5 mg tablet (Eliquis) 5 mg PO BID 09/05/22 09/09/23 09/07/23 History calcium carbonate 1,000 mg PO DAILY 09/09/23 09/09/23 Unknown History metoprolol succinate 100 mg 100 mg PO DAILY 09/09/23 09/09/23 09/11/23 05:00 History tablet,extended release 24 hr prednisone 5 mg tablet 5 mg PO DAILY 09/09/23 09/10/23 09/11/23 05:00 History prednisone 2.5 mg tablet 2.5 mg PO .Q 3 DAYS 09/10/23 09/10/23 Unknown History Exam Height,Weight and Vital Signs: Height 5 ft 6.5 in Weight 78.925 kg Pertinent Lab Results Pertinent Lab Results: Laboratory Tests 08/08/23 08/30/23 07:33 07:26 WBC 5.4 Hgb 10.7 L Hct 33.7 L Plt Count 184 Sodium 143 Potassium 4.5 Chloride 108 Carbon Dioxide 28 BUN 12 Creatinine 0.80 Assessment and Plan Assessment Anesthesia Assessment: Chart Reviewed Final Anesthetic Review Family History of Problems with Anesthesia: No History of Problems with Anesthesia: No Documented by User: Paola Looney MD 09/11/23 08:52 PMFSH Past Medical History Medical History Thyroid disease Back pain Hx of transfusion of platelets (~2014) Poor peripheral circulation Hx of bronchitis (~2022) Chest pain Pulmonary air embolism Hypertension Hypercholesterolemia Chronic ITP (idiopathic thrombocytopenia) Surgical History Surgical History Hx of kyphoplasty (~08/2022) Hx of colonoscopy Social History Social History Household Members: Spouse Housing: House Are you a primary transitions rn care coordinator to a significant other at home: No Do you presently have visiting nurse or other home services: No Alcohol intake: never Patient Tobacco Use Status: Never used Tobacco Use of substances other than those prescribed or required for medical reasons: No Have you been hit, kicked, punched, or otherwise hurt by someone within the past year? If so, by whom?: No Are you DNR?: No Advance Directives: No (will bring DOS) Advance Directives Information Provided: Yes Advance Directives on File: No Recently lost weight without trying: No Nutrition Risks: No Nutritional Risk Patient : No service: No Current occupational status: retired Current occupational exposures/hazards: No Meds Allergies Allergy/AdvReac Type Severity Reaction Status Date / Time Sulfa (Sulfonamide Allergy Severe Rash Verified 09/11/23 07:42 Antibiotics) whole body rash Penicillins Allergy Intermediate Abdominal Verified 09/11/23 07:42 Pain all cillins Home Medications ?Medication ?Instructions ?Recorded ?Confirmed ?Last Taken ?Type levothyroxine 50 mcg tablet 50 mcg PO DAILY 12/15/19 09/09/23 09/11/23 05:00 History rosuvastatin 5 mg tablet 5 mg PO BEDTIME 12/15/19 09/09/23 09/03/22 History apixaban 5 mg tablet (Eliquis) 5 mg PO BID 09/05/22 09/09/23 09/07/23 History calcium carbonate 1,000 mg PO DAILY 09/09/23 09/09/23 Unknown History metoprolol succinate 100 mg 100 mg PO DAILY 09/09/23 09/09/23 09/11/23 05:00 History tablet,extended release 24 hr prednisone 5 mg tablet 5 mg PO DAILY 09/09/23 09/10/23 09/11/23 05:00 History prednisone 2.5 mg tablet 2.5 mg PO .Q 3 DAYS 09/10/23 09/10/23 Unknown History Exam Airway Mallampati Class: II TM Dist: >3cm Neck ROM: Full Heart: rrr Lungs: cta Assessment and Plan Final Anesthetic Review NPO: Yes ASA Class: III Final Preanesthetic Review: No Changes in Pt Med Stat, Meds/Allgs Chart Reviewed, Consent Obtained/Reviewed and Anes Risks/Benef Reviewed Patient Risk: Intermediate Procedure Risk: Low Anesthetic Plan Anesthetic Plan: MAC: Disposition: Standard PACU
[2023-09-11] MEDS: Sodium Phosphate,Mono-Dibasic 133 ML ENEMA PR (07:55)
[2023-09-11 07:58] VITALS: BMI 26.3
[2023-09-11 08:08] VITALS: BP 136/66; PULSE 77; RESP 15; TEMP 36.5; O2SAT 98
[2023-09-11] MEDS: Lactated Ringers 1,000 ML 100 ML IVCONT (08:17)
[2023-09-11 09:54] VITALS: BP 90/44; PULSE 61; RESP 16; TEMP 36.1; O2SAT 97
--- NOTE | 2023-09-11 09:58 | PM.OP ---
Brief Operative Note Date of Service: 09/11/23 Pre-op diagnosis: Screening Post-op diagnosis: other (Diverticulosis) Procedure: Colonoscopy to the cecum Surgeon: Gage Lizarraga MD Anesthesia: MAC Was an Windows Infrastructure Engineer used for this Procedure?: No Estimated blood loss (mL): 0 Pathology: none sent Condition: stable Disposition: PACU
[2023-09-11 10:09] VITALS: BP 129/70; PULSE 60; RESP 16; TEMP 36.4; O2SAT 97
--- NOTE | 2023-09-11 10:14 | OP_ITS ---
DATE OF SERVICE: 09/11/2023 SURGEON: Gage Lizarraga MD INDICATIONS: The patient presents for evaluation of colorectal cancer screening, personal history of colon polyps, and family history of colon cancer. Full consent obtained from her for this, including risks of bleeding and perforation. PREOPERATIVE DIAGNOSIS: POSTOPERATIVE DIAGNOSIS: PROCEDURE PERFORMED: Colonoscopy to the cecum. ESTIMATED BLOOD LOSS: COMPLICATIONS: ANESTHESIA: Monitored anesthesia care. ASSISTANTS: SPECIMENS: PREOPERATIVE DIAGNOSES: Colorectal cancer screening, personal history of colon polyps, family history of colon cancer. POSTOPERATIVE DIAGNOSES: Colorectal cancer screening, personal history of colon polyps, family history of colon cancer, diverticulosis and internal hemorrhoids. DESCRIPTION OF PROCEDURE: The patient was placed in the left lateral decubitus position. The digital rectal exam revealed no abnormalities. The Olympus video pediatric colonoscope was entered into the rectum and advanced easily to the cecum. Once in the cecum, I did identify normal-appearing cecal pouch with appendiceal orifice and a normal-appearing ileocecal valve. The entire cecum and ileocecal valve appeared normal. There was transillumination of light deep in the right lower quadrant. The scope was slowly withdrawn assessing all mucosal surfaces carefully. Preparation was excellent. I did not visualize any sign of polyps, colitis, nor angiodysplasia. There was a mild amount of sigmoid diverticulosis. In the rectum, scope was retroflexed visualizing some small internal hemorrhoids, but no other pathology. The rectal mucosa appeared normal. The scope was straightened and withdrawn from the patient. She tolerated the procedure well and was returned to recovery area in stable condition. IMPRESSION: 1. Diverticulosis. 2. Internal hemorrhoids. PLAN: Given her history of colon polyps and family history of colon cancer, I would recommend a followup coloscopy in 5 years. She was advised to resume her Eliquis today. She will otherwise see me on a p.r.n. basis. Gage Lizarraga MD RMElbert/SANKET / [id number]
== END 2023-09-11 10:53 | disposition home or self-care (01) ==
PROVIDERS: PCP Internal Medicine Medical Oncology; Visit Provider Internal Medicine
PROC: 0DJD8ZZ Inspection of Lower Intestinal Tract, Via Natural or Artificial Opening Endoscopic (ICD-10-PCS; CPT 45378; principal; 2023-09-11 08:30)
DX: Z12.11 Encounter for screening for malignant neoplasm of colon (principal); Z86.010 Personal history of colon polyps; Z80.0 Family history of malignant neoplasm of digestive organs; K57.30 Diverticulosis of large intestine without perforation or abscess without bleeding; K64.8 Other hemorrhoids; I10 Essential (primary) hypertension; I26.99 Other pulmonary embolism without acute cor pulmonale; E07.9 Disorder of thyroid, unspecified; D69.3 Immune thrombocytopenic purpura; Z79.01 Long term (current) use of anticoagulants; Z79.52 Long term (current) use of systemic steroids; Z79.899 Other long term (current) drug therapy; Z88.0 Allergy status to penicillin; Z88.1 Allergy status to other antibiotic agents; Z88.2 Allergy status to sulfonamides; Z98.890 Other specified postprocedural states
CPT/HCPCS: G0105; J2704

== ENCOUNTER 2023-09-19 07:42 | Outpatient (REF) | payer MEDICARE, BC, SELFPAY ==
[2023-09-19 07:54] LABS: MANUAL DIFF FLAG NO
[2023-09-19 08:24] LABS: Basophils Percent Auto 0.6 % (0-2); Eosinophils Absolute Auto 0.1 X10*3/uL (0.0-0.4); Eosinophils Percent Auto 1.1 % (0-4); Hematocrit 35.5 % (37.0-47.0); Hemoglobin 11.5 g/dl (12.0-16.0); Imm Gran Abs Auto 0.03 X10*3/uL (0.00-0.03); Imm Gran Pct Auto 0.4 % (0.0-0.4); Immature Retic Fraction 15.5 % (3.0-15.9); Lymphocytes Absolute Auto 1.5 X10*3/uL (1.2-4.9); Lymphocytes Percent Auto 21.9 % (20-40); Mean Corpuscular HGB Conc 32.4 g/dl (31.0-35.0); Mean Corpuscular Hemoglobin 32.7 pg (27.0-33.0); Mean Corpuscular Volume 100.9 fL (80.0-98.0); Mean Platelet Volume 8.9 fL (9.4-12.3); Monocytes Absolute Auto 0.7 X10*3/uL (0.1-1.2); Monocytes Percent Auto 9.4 % (2-11); Neutrophils Absolute Auto 4.7 x10*3/uL (2.0-8.3); Neutrophils Percent Auto 66.6 % (45-73); Platelet Count 208 X10*3/uL (160-400); Red Blood Count 3.52 X10*6/uL (4.20-5.50); Red Cell Distribution Width 14.2 % (11.0-16.0); Retic HGB Equivalent 32.2 pg (30.0-35.0); Reticulocyte Percent 1.5 % (0.5-1.8); Reticulocytes Absolute 0.053 X10*6/uL (0.026-0.095)
== END 2023-09-19 07:43 | disposition home or self-care (01) ==
LOC: HO.LAB 07:42
PROVIDERS: PCP Internal Medicine Medical Oncology; Visit Provider Internal Medicine Medical Oncology
DX: D69.3 Immune thrombocytopenic purpura (principal)
CPT/HCPCS: 36415; 85025; 85045

== ENCOUNTER 2023-10-10 06:52 | Outpatient (REF) | payer MEDICARE, BC, SELFPAY ==
[2023-10-10 07:53] LABS: MANUAL DIFF FLAG NO
[2023-10-10 08:15] LABS: Basophils Percent Auto 0.4 % (0-2); Eosinophils Percent Auto 0.6 % (0-4); Hematocrit 34.9 % (37.0-47.0); Hemoglobin 11.2 g/dl (12.0-16.0); Imm Gran Abs Auto 0.03 X10*3/uL (0.00-0.03); Imm Gran Pct Auto 0.6 % (0.0-0.4); Lymphocytes Absolute Auto 1.4 X10*3/uL (1.2-4.9); Lymphocytes Percent Auto 26.1 % (20-40); Mean Corpuscular HGB Conc 32.1 g/dl (31.0-35.0); Mean Corpuscular Hemoglobin 32.2 pg (27.0-33.0); Mean Corpuscular Volume 100.3 fL (80.0-98.0); Mean Platelet Volume 9.1 fL (9.4-12.3); Monocytes Absolute Auto 0.6 X10*3/uL (0.1-1.2); Monocytes Percent Auto 10.6 % (2-11); Neutrophils Absolute Auto 3.2 x10*3/uL (2.0-8.3); Neutrophils Percent Auto 61.7 % (45-73); Platelet Count 181 X10*3/uL (160-400); Red Blood Count 3.48 X10*6/uL (4.20-5.50); Red Cell Distribution Width 14.4 % (11.0-16.0); White Blood Count 5.2 X10*3/uL (4.8-10.8)
== END 2023-10-10 06:53 | disposition home or self-care (01) ==
LOC: HO.LABR 06:52
PROVIDERS: PCP Internal Medicine; Visit Provider Internal Medicine Medical Oncology
DX: D69.3 Immune thrombocytopenic purpura (principal)
CPT/HCPCS: 36415; 85025

== ENCOUNTER 2023-11-01 07:40 | Outpatient (REF) | payer MEDICARE, BC, SELFPAY ==
[2023-11-01 07:51] LABS: MANUAL DIFF FLAG NO
[2023-11-01 08:16] LABS: Basophils Percent Auto 0.3 % (0-2); Eosinophils Percent Auto 0.5 % (0-4); Hematocrit 34.9 % (37.0-47.0); Hemoglobin 11.1 g/dl (12.0-16.0); Imm Gran Abs Auto 0.03 X10*3/uL (0.00-0.03); Imm Gran Pct Auto 0.5 % (0.0-0.4); Lymphocytes Absolute Auto 1.4 X10*3/uL (1.2-4.9); Lymphocytes Percent Auto 23.7 % (20-40); Mean Corpuscular HGB Conc 31.8 g/dl (31.0-35.0); Mean Corpuscular Hemoglobin 32.2 pg (27.0-33.0); Mean Corpuscular Volume 101.2 fL (80.0-98.0); Mean Platelet Volume 9.2 fL (9.4-12.3); Monocytes Absolute Auto 0.6 X10*3/uL (0.1-1.2); Monocytes Percent Auto 10.5 % (2-11); Neutrophils Absolute Auto 3.7 x10*3/uL (2.0-8.3); Neutrophils Percent Auto 64.5 % (45-73); Platelet Count 179 X10*3/uL (160-400); Red Blood Count 3.45 X10*6/uL (4.20-5.50); Red Cell Distribution Width 14.5 % (11.0-16.0); White Blood Count 5.8 X10*3/uL (4.8-10.8)
== END 2023-11-01 07:41 | disposition home or self-care (01) ==
LOC: HO.LABR 07:40
PROVIDERS: PCP Internal Medicine; Visit Provider Internal Medicine Medical Oncology
DX: D69.3 Immune thrombocytopenic purpura (principal)
CPT/HCPCS: 36415; 85025

== ENCOUNTER 2023-11-28 07:46 | Outpatient (REF) | payer MEDICARE, BC, SELFPAY ==
[2023-11-28 08:05] LABS: MANUAL DIFF FLAG NO
[2023-11-28 08:24] LABS: Basophils Percent Auto 0.5 % (0-2); Eosinophils Percent Auto 0.7 % (0-4); Hematocrit 36.8 % (37.0-47.0); Hemoglobin 11.9 g/dl (12.0-16.0); Imm Gran Abs Auto 0.02 X10*3/uL (0.00-0.03); Imm Gran Pct Auto 0.3 % (0.0-0.4); Lymphocytes Absolute Auto 1.3 X10*3/uL (1.2-4.9); Lymphocytes Percent Auto 22.4 % (20-40); Mean Corpuscular HGB Conc 32.3 g/dl (31.0-35.0); Mean Corpuscular Hemoglobin 32.5 pg (27.0-33.0); Mean Corpuscular Volume 100.5 fL (80.0-98.0); Mean Platelet Volume 8.9 fL (9.4-12.3); Monocytes Absolute Auto 0.6 X10*3/uL (0.1-1.2); Monocytes Percent Auto 9.7 % (2-11); Neutrophils Absolute Auto 3.8 x10*3/uL (2.0-8.3); Neutrophils Percent Auto 66.4 % (45-73); Platelet Count 194 X10*3/uL (160-400); Red Blood Count 3.66 X10*6/uL (4.20-5.50); Red Cell Distribution Width 14.5 % (11.0-16.0); White Blood Count 5.8 X10*3/uL (4.8-10.8)
== END 2023-11-28 07:47 | disposition home or self-care (01) ==
LOC: HO.LABR 07:46
PROVIDERS: PCP Internal Medicine; Visit Provider Internal Medicine Medical Oncology
DX: D69.3 Immune thrombocytopenic purpura (principal)
CPT/HCPCS: 36415; 85025

== ENCOUNTER 2023-12-25 07:37 | Outpatient (REF) | payer MEDICARE, BC, SELFPAY ==
[2023-12-25 08:02] LABS: MANUAL DIFF FLAG NO
[2023-12-25 08:49] LABS: Basophils Percent Auto 0.5 % (0-2); Eosinophils Percent Auto 0.5 % (0-4); Hematocrit 35.6 % (37.0-47.0); Hemoglobin 11.6 g/dl (12.0-16.0); Imm Gran Abs Auto 0.03 X10*3/uL (0.00-0.03); Imm Gran Pct Auto 0.4 % (0.0-0.4); Lymphocytes Absolute Auto 1.4 X10*3/uL (1.2-4.9); Lymphocytes Percent Auto 18.8 % (20-40); Mean Corpuscular HGB Conc 32.6 g/dl (31.0-35.0); Mean Corpuscular Hemoglobin 32.5 pg (27.0-33.0); Mean Corpuscular Volume 99.7 fL (80.0-98.0); Mean Platelet Volume 9.1 fL (9.4-12.3); Monocytes Absolute Auto 0.6 X10*3/uL (0.1-1.2); Monocytes Percent Auto 8.5 % (2-11); Neutrophils Absolute Auto 5.3 x10*3/uL (2.0-8.3); Neutrophils Percent Auto 71.3 % (45-73); Platelet Count 212 X10*3/uL (160-400); Red Blood Count 3.57 X10*6/uL (4.20-5.50); Red Cell Distribution Width 14.6 % (11.0-16.0); White Blood Count 7.4 X10*3/uL (4.8-10.8)
== END 2023-12-25 07:38 | disposition home or self-care (01) ==
LOC: HO.LABR 07:37
PROVIDERS: PCP Internal Medicine; Visit Provider Internal Medicine Medical Oncology
DX: D69.3 Immune thrombocytopenic purpura (principal)
CPT/HCPCS: 36415; 85025

== ENCOUNTER 2024-01-21 07:30 | Outpatient (REF) | payer MEDICARE, BC, SELFPAY ==
[2024-01-21 07:40] LABS: MANUAL DIFF FLAG NO
[2024-01-21 08:07] LABS: Basophils Percent Auto 0.5 % (0-2); Eosinophils Absolute Auto 0.1 X10*3/uL (0.0-0.4); Eosinophils Percent Auto 0.8 % (0-4); Hematocrit 36.3 % (37.0-47.0); Hemoglobin 11.4 g/dl (12.0-16.0); Imm Gran Abs Auto 0.03 X10*3/uL (0.00-0.03); Imm Gran Pct Auto 0.5 % (0.0-0.4); Lymphocytes Absolute Auto 1.6 X10*3/uL (1.2-4.9); Lymphocytes Percent Auto 25.8 % (20-40); Mean Corpuscular HGB Conc 31.4 g/dl (31.0-35.0); Mean Corpuscular Hemoglobin 32.1 pg (27.0-33.0); Mean Corpuscular Volume 102.3 fL (80.0-98.0); Mean Platelet Volume 8.9 fL (9.4-12.3); Monocytes Absolute Auto 0.7 X10*3/uL (0.1-1.2); Monocytes Percent Auto 11.1 % (2-11); Neutrophils Absolute Auto 3.8 x10*3/uL (2.0-8.3); Neutrophils Percent Auto 61.3 % (45-73); Platelet Count 209 X10*3/uL (160-400); Red Blood Count 3.55 X10*6/uL (4.20-5.50); Red Cell Distribution Width 14.4 % (11.0-16.0); White Blood Count 6.2 X10*3/uL (4.8-10.8)
== END 2024-01-21 07:31 | disposition home or self-care (01) ==
LOC: HO.LABR 07:30
PROVIDERS: PCP Internal Medicine Medical Oncology; Visit Provider Internal Medicine Medical Oncology
DX: D69.3 Immune thrombocytopenic purpura (principal)
CPT/HCPCS: 36415; 85025

== ENCOUNTER 2024-02-17 07:39 | Outpatient (REF) | payer MEDICARE, BC, SELFPAY ==
--- OUTSIDE RECORDS SUMMARY | 2024-02-17 07:43 | XMS_ITS ---
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 Name Role Phone Sg Zhong MD Primary Care Provider Unavailab Gage Rainey Unavailable [phone] Allergies Allergen (clinical drug ingredient) Drug/Non Drug Allergy documented on EMR Reaction Allergy Type Onset Date Status sulfacetamide Sulfacetamide Unknown Drug Allergy Active Penicillin Unknown Drug Allergy Active REASON FOR VISIT ITP, thrombophilia, history of pulmonary embolus Medications Medication SIG (Take, Route, Frequency, Duration) Notes Start Date End Date Status predniSONE 1 MG TAKE 5 TABLETS BY [facility] ONCE DAILY WITH FOOD FOR 30 DAYS Active Rosuvastatin Calcium 5 MG TAKE 1 TABLET BY MOUTH AT BEDTIME Oral Active Levothyroxine Sodium 50 MCG 1 capsule Or ally Once a day Active Metoprolol Succinate ER 75 mg 1 tablet Orally Once a day Active Eliquis 5 MG TAKE 1 TABLET BY CHRISTAL TWICE A DAY DIRECTED Active Social History Sex Assigned At : Social History Observation Description Sex Assigned At Female Encounters Encounter Location Date Provider Diagnosis Gage Day III, MD [address] [place] [address] [place] [address] 12/27/2023 Gage Day ITP (idiopathic thrombocytopenic purpura) D69.3 ; Overweight E66.3 ; Essential hypertension I10 ; Lupus anticoagulant syndrome D68.62 and Acute pulmonary embolism without acute cor pulmonale, unspecified pulmonary embolism type I26.99 Assessments Encounter Date Diagnosis (ICD Code) Assessment Notes Treat ment Notes Treatment Clinical Notes 12/27/2023 ITP (idiopathic thrombocytopenic purpura) (ICD-10 - D69.3) Her current platelet count is 212,000. She is stable at this time and no change in her therapy was needed. 12/27/2023 Overweight (ICD-10 - E66.3) We have discussed lifestyle modification in her diet and nutrition today. She will try to lose weight and 1/2 pound per week. 12/27/2023 Essential hypertensi on (ICD-10 - I10) She is managed by primary care and says her blood pressure has been in the normal range. 12/27/2023 Lupus anticoagulant syndrome (ICD-10 - D68.62) She has had no symptoms of blood clots or emboli or bleeding.She remains anticoagulated. 12/27/2023 Acute pulmonary embolism without acute cor pulmonale, unspecified pulmonary embolism type (ICD-10 - I26.99) She has had no bleeding. She continues on her current therapy. Plan Of Treatment Medication Medication Name Sig Start Date Stop Date Notes predniSONE 1 MG TAKE 5 TABLETS BY MO [facility] ONCE DAILY WITH FOOD FOR 30 DAYS Rosuvastatin Calcium 5 MG TAKE 1 TABLET BY MOUTH AT BEDTIME Oral Levothyroxine Sodium 50 MCG 1 capsule Orally Once a day Metoprolol Succinate ER 75 mg 1 tablet Orally Once a day Eliquis 5 MG TAKE 1 TABLET BY CHRISTAL TH TWICE A DAY DIRECTED Next Appt Details Follow Up: 3 Weeks, Reason: Telehealth Provider Name:Gage Day, 02/21/2024 10:30:00 AM, [address] [place] [address] [place], [place]AN[place] GAL[place]AN, [id number], Progress Notes * Zakia GUIDOOB:1950 (73 yo F)Acc No.[id number]:12/27/2023 Patient:?Roseann GUIDO Provider:?Gage Day MD :1950???Age:73 Y???Sex:Female D ate:12/27/2023 Address:[address] [place] [address] [id number] Pcp:Sg Zhong MD Subjective: * Chief Complaints: * ???ITPThrombophiliaHistory o f pulmonary embolus * HPI: ???:? This telehealth visit took place over 15 minutes with the patient at home and me in my office.? She gave consent for billing.? This was a scheduled visit to manage her idiopathiic thrombocytopenic purpura and her anticoagulation.? She has a history of pulmonary embolism and thrombophilia.? Her platelet count was in the normal range and she has been compliant with her prednisone.? She continues to refuse to take any other medication for the low platelets except prednisone. ?Telehealth?Location of provider rendering services:?{...} [address] [facility] [address] ?Location of patient:?address listed in demographics for today's visit ?Patient identification confirmed using:?Name, ?Telehealth method:?Telephone only. Patient not visible to care provider. ?Consent:?Patient verbally consented to treatment, Patient verbally consented to billing insurance company, Patient informed of any privacy concerns related to method of visit ?Total time spent with patient (mins)?15 * ROS:?She denies any headaches or diplopia nausea vomiting diarrhea fevers or chills or sore throat.? She has no skin lesions.? She has had no bleeding.? She has no petechiae.? Her joints are stable.? She denies any chest pain or dyspnea palpitations or tachycardia. * Medical History:? * Surgical History:?aspiration cyst right breast, benign apocrine cyst 12/2013negative colonoscopy 2008bone marrow biopsy and aspirate. Iliac crest 05/2014Colonoscopy, [facility] [place], Dr. 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 Her father of head and neck cancer. Her mother of colon cancer. She has no children. There is no family history of mental illness or substance abuse. * Medications:?TakingpredniSON E 1 MG Tablet TAKE 5 TABLETS BY MOUTH ONCE DAILY WITH FOOD FOR 30 DAYS Eliquis 5 MG Tablet TAKE 1 TABLET BY MOUTH TWICE A DAY DIRECTED Metoprolol Succinate ER 75 mg Tablet Extended Release 24 Hour 1 tablet Orally Once a day Levothyroxine Sodium 50 MCG Tablet 1 capsule Orally Once a day Rosuvastatin Calcium 5 MG Tablet TAKE 1 TABLET BY MOUTH AT BEDTIME Oral Medication List reviewed and reconciled with the patientTaking predniSONE 1 MG Tablet TAKE 5 TABLETS BY MOUTH ONCE DAILY WITH FOOD FOR 30 DAYS Taking Eliquis 5 MG Tablet TAKE 1 TABLET BY MOUTH TWICE A DAY DIRECTED Taking Metoprolol Succinate ER 75 mg Tablet Extended Release 24 Hour 1 tablet Orally Once a day Taking Levothyroxine Sodium 50 MCG Tablet 1 capsule Orally Once a day Taking Rosuvastatin Calcium 5 MG Tablet TAKE 1 TABLET BY MOUTH AT BEDTIME Oral Medication List reviewed and reconciled with the patient * Allergies:?Skylar castaneda[Allergies Verified] Objective: * Vitals:? * ???Past Orders: Lab:Complete Blood Count Aut o Diff * Collection Date 12/25/2023 11/28/2023 11/01/2023 Collection Time 08:01 AM 08:03 AM 07:50 AM 07:51 AM Order Date 12/25/2023 11/28/2023 11/01/2023 10/10/2023 White Blood Count 7.4 (Ref Range: 4.8-10.8 X10*3/uL) 5.8 (Ref Range: 4.8-10.8 X10*3/uL) 5.8 (Ref Range: 4.8-10.8 X10*3/uL) 5.2 (Ref Range: 4.8-10.8 X10*3/uL) Red Blood Count 3.57?L (Ref Range: 4.20-5.50 X10*6/uL) 3.66?L (Ref Range: 4.20-5.50 X10*6/uL) 3.45?L (Ref Range: 4.20-5.50 X10*6/uL) 3.48?L (Ref Range: 4.20-5.50 X10*6/uL) Hemoglobin 11.6?L (Ref Range: 12.0-16.0 g/dl) 11.9?L (Ref Range: 12.0-16.0 g/dl) 11.1?L (Ref Range: 12.0-16.0 g/dl) 11.2?L (Ref Range: 12.0-16.0 g/dl) Hematocrit 35.6?L (Ref Range: 37.0-47.0 %) 36.8?L (Ref Range: 37.0-47.0 %) 34.9?L (Ref Range: 37.0-47.0 %) 34.9?L (Ref Range: 37.0-47.0 %) Mean Corpuscular Volume 99.7?H (Ref Range: 80.0-98.0 fL) 100.5?H (Ref Range: 80.0-98.0 fL) 101.2?H (Ref Range: 80.0-98.0 fL) 100.3?H (Ref Range: 80.0-98.0 fL) Mean Corpuscular Hemoglobin 32.5 (Ref Range: 27.0-33.0 pg) 32.5 (Ref Range: 27.0-33.0 pg) 32.2 (Ref Range: 27.0-33.0 pg) 32.2 (Ref Range: 27.0-33.0 pg) Mean Corpuscular HGB Conc 32.6 (Ref Range: 31.0-35.0 g/dl) 32.3 (Ref Range: 31.0-35.0 g/dl) 31.8 (Ref Range: 31.0-35.0 g/dl) 32.1 (Ref Range: 31.0-35.0 g/dl) Red Cell Distribution Width 14.6 (Ref Range: 11.0-16.0 %) 14.5 (Ref Range: 11.0-16.0 %) 14.5 (Ref Range: 11.0-16.0 %) 14.4 (Ref Range: 11.0-16.0 %) Platelet Count 212 (Ref Range: 160-400 X10*3/uL) 194 (Ref Range: 160-400 X10*3/uL) 179 (Ref Range: 160-400 X10*3/uL) 181 (Ref Range: 160-400 X10*3/uL) Mean Platelet Volume 9.1?L (Ref Range: 9.4-12.3 fL) 8.9?L (Ref Range: 9.4-12.3 fL) 9.2?L (Ref Range: 9.4-12.3 fL) 9.1?L (Ref Range: 9.4-12.3 fL) Neutrophils Percent Auto 71.3 (Ref Range: 45-73 %) 66.4 (Ref Range: 45-73 %) 64.5 (Ref Range: 45-73 %) 61.7 (Ref Range: 45-73 %) Imm Gran Pct Auto 0.4 (Ref Range: 0.0-0.4 %) 0.3 (Ref Range: 0.0-0.4 %) 0.5?H (Ref Range: 0.0-0.4 %) 0.6?H (Ref Range: 0.0-0.4 %) Lymphocytes Percent Auto 18.8?L (Ref Range: 20-40 %) 22.4 (Ref Range: 20-40 %) 23.7 (Ref Range: 20-40 %) 26.1 (Ref Range: 20-40 %) Monocytes Percent Auto 8.5 (Ref Range: 2-11 %) 9.7 (Ref Range: 2-11 %) 10.5 (Ref Range: 2-11 %) 10.6 (Ref Range: 2-11 %) Eosinophils Percent Auto 0.5 (Ref Range: 0-4 %) 0.7 (Ref Range: 0-4 %) 0.5 (Ref Range: 0-4 %) 0.6 (Ref Range: 0-4 %) Basophils Percent Auto 0.5 (Ref Range: 0-2 %) 0.5 (Ref Range: 0-2 %) 0.3 (Ref Range: 0-2 %) 0.4 (Ref Range: 0-2 %) NRBC Pct Auto 0.0 (Ref Range: 0.0-0.2 /100WBC) 0.0 (Ref Range: 0.0-0.2 /100WBC) 0.0 (Ref Range: 0.0-0.2 /100WBC) 0.0 (Ref Range: 0.0-0.2 /100WBC) Neutrophils Absolute Auto 5.3 (Ref Range: 2.0-8.3 x10*3/uL) 3.8 (Ref Range: 2.0-8.3 x10*3/uL) 3.7 (Ref Range: 2.0-8.3 x10*3/uL) 3.2 (Ref Range: 2.0-8.3 x10*3/uL) Imm Gran Abs Auto 0.03 (Ref Range: 0.00-0.03 X10*3/uL) 0.02 (Ref Range: 0.00-0.03 X10*3/uL) 0.03 (Ref Range: 0.00-0.03 X10*3/uL) 0.03 (Ref Range: 0.00-0.03 X10*3/uL) Lymphocytes Absolute Auto 1.4 (Ref Range: 1.2-4.9 X10*3/uL) 1.3 (Ref Range: 1.2-4.9 X10*3/uL) 1.4 (Ref Range: 1.2-4.9 X10*3/uL) 1.4 (Ref Range: 1.2-4.9 X10*3/uL) Monocytes Absolute Auto 0.6 (Ref Range: 0.1-1.2 X10*3/uL) 0.6 (Ref Range: 0.1-1.2 X10*3/uL) 0.6 (Ref Range: 0.1-1.2 X10*3/uL) 0.6 (Ref Range: 0.1-1.2 X10*3/uL) Eosinophils Absolute Auto 0.0 (Ref Range: 0.0-0.4 X10*3/uL) 0.0 (Ref Range: 0.0-0.4 X10*3/uL) 0.0 (Ref Range: 0.0-0.4 X10*3/uL) 0.0 (Ref Range: 0.0-0.4 X10*3/uL) Basophils Absolute Auto 0.0 (Ref Range: 0.0-0.2 X10*3/uL) 0.0 (Ref Range: 0.0-0.2 X10*3/uL) 0.0 (Ref Range: 0.0-0.2 X10*3/uL) 0.0 (Ref Range: 0.0-0.2 X10*3/uL) NRBC Abs Auto 0.000 (Ref Range: 0.0-0.012 X10*3/uL) 0.000 (Ref Range: 0.0-0.012 X10*3/uL) 0.000 (Ref Range: 0.0-0.012 X10*3/uL) 0.000 (Ref Range: 0.0-0.012 X10*3/uL) Assessment: * Assessment: 1.?ITP (idiopathic thrombocy topenic purpura) - D69.3 (Primary)???Notes :Her current platelet count is 212,000. She is stable at this time and no change in her therapy was needed.???2.?Overweight - E66.3???Notes :We have discussed lifestyle modification in her diet and nutrition today. She will try to lose weight and 1/2 pound per week.???3.?Essential hypertension - I10???Notes :She is managed by primary care and says her blood pressure has been in the normal range.???4.?Lupus anticoagulant syndrome - D68.62???Notes :She has had no symptoms of blood clots or emboli or bleeding.She remains anticoagulated.???5.?Acute pulmonary embolism without acute cor pulmonale, unspecified pulmonary embolism type - I26.99???Notes :She has had no bleeding. She continues on her current therapy.??? Plan: * Treatment: 2.?Others? Continue predniSONE Tablet, 1 MG, TAKE 5 TABLETS BY MOUTH ONCE DAILY WITH FOOD FOR 30 DAYS;?Continue Eliquis Tablet, 5 MG, TAKE 1 TABLET BY MOUTH TWICE A DAY DIRECTED.?? * Procedure Codes:?66095 PHONE E/M BY PHYS 11-20 MIN * Preventive Medicine:? ??Counseling:?Care goal follow-up plan:?Counseling for abnormal BMI given?Yes ?Above Normal BMI Follow-up?Dietary management education, guidance, and counseling * Follow Up:?3 Weeks (Reason: Telehealth) * Images: * Sign off status: Completed true * Provider:?Gage Day MD Date:?09/2023 Generated for Brendan lantigua/Chacho/eTransmitting on:?02/17/2024 07:42 AM EST History and Physical Notes * HPI (History of Present Illness) Category Sub-Category Detail Notes [facility]health [facility] {...} [facility] [address] [place] [id number] Location of patient:: address listed in demographics for today's visit Patient identification confirmed using:: Name, Telehealth method:: Telephone only. Margaret ent not visible to care provider. Consent:: Patient verbally c onsented to treatment, Patient verbally consented to billing insurance company, Patient informed of any privacy concerns related to method of visit Total time spent with patient (mins): 15
--- OUTSIDE RECORDS SUMMARY | 2024-02-17 07:43 | XMS_ITS ---
Author Organization Gage Day III, MD Address [address] [place] [address] DR YADAV Amanda [place] [address] Care Team Providers Care Anesthesiology Resident Name Role Phone Sg Zhong MD Primary Care Provider Unavailab Gage Rainey Unavailable [phone] Allergies Allergen (clinical drug ingredient) Drug/Non Drug Allergy documented on EMR Reaction Allergy Type Onset Date Status sulfacetamide Sulfacetamide Unknown Drug Allergy Active Penicillin Unknown Drug Allergy Active REASON FOR VISIT ITP, Coagulopathy, History of pulmonary embolism, Hypertension, Overweight Medications Medication SIG (Take, Route, Frequency, Duration) Notes Start Date End Date Status Rosuvastatin Calcium 5 MG TAKE 1 TABLET BY MOUTH AT BEDTIME Oral Active Levothyroxine Sodium 50 MCG 1 capsule Or ally Once a day Active Metoprolol Succinate ER 75 mg 1 tablet Orally Once a day Active Eliquis 5 MG TAKE 1 TABLET BY CHRISTAL TH TWICE A DAY DIRECTED Active predniSONE 1 MG TAKE 5 TABLETS BY MO [facility] ONCE DAILY WITH FOOD FOR 30 DAYS Active Social History Tobacco Use: Social History Observation Description Date Details (start date - stop date) Never Smoker NA - NA Sex Assigned At : Social History Observation Description Sex Assigned At Female Tobacco Use/Smoking Question Answer Notes Patient is a nonsmoker Additional Findings: Tobacco Non-User Aggressive non-smoker Vital Signs Height 67.5 in 11/29/2023 Weight 168 lbs 11/29/2023 BMI 25.92 kg/m2 11/29/2023 Encounters Encounter Location Date Provider Diagnosis Gage Day III, MD [address] [place] [address] [place] [address] 11/29/2023 Gage Day ITP (idiopathic thrombocytopenic purpura) D69.3 ; Essential hypertension I10 ; Anticoagulated Z79.01 ; Lupus anticoagulant syndrome D68.62 ; Acute pulmonary embolism without acute cor pulmonale, unspecified pulmonary embolism type I26.99 ; Macrocytic anemia D53.9 and Overweight (BMI 25.0-29.9) E66.3 Assessments Encounter Date Diagnosis (ICD Code) Assessment Notes T reatment Notes Treatment Clinical Notes 11/29/2023 ITP (idiopathic thrombocytopenic purpura) (ICD-10 - D69.3) Her current platelet count is 194,000. She is stable at this time and no change in her therapy was needed. 11/29/2023 Essential hypertensi on (ICD-10 - I10) She is managed by primary care and says her blood pressure has been in the normal range. 11/29/2023 Anticoagulated (ICD- 10 - Z79.01) She was continued on current therapy. No change was made. 11/29/2023 Lupus anticoagulant syndrome (ICD-10 - D68.62) She has had no symptoms of blood clots or emboli or bleeding.She remains anticoagulated. 11/29/2023 Acute pulmonary embolism without acute cor pulmonale, unspecified pulmonary embolism type (ICD-10 - I26.99) She has had no bleeding. She continues on her current therapy. 11/29/2023 Macrocytic anemia (ICD-10 - D53.9) She is slowly developing anemia and macrocytosis. Her vitamin B12 and folic acid levels have been normal. Her reticulocyte count is unremarkable. She has had no bleeding. She'll be followed closely for possible myelodysplastic syndrome. 11/29/2023 Overweight (BMI 25.0-29.9) (ICD-10 - E66.3) She has lost 18 pounds through diet and exercise. She remains only slightly overweight. I suggested she stabilize her weight at this level. Plan Of Treatment Medication Medication Name Sig Start Date Stop Date Notes Rosuvastatin Calcium 5 MG TAKE 1 TABLET BY MOUTH AT BEDTIME Oral Levothyroxine Sodium 50 MCG 1 capsule Orally Once a day Metoprolol Succinate ER 75 mg 1 tablet Orally Once a day Eliquis 5 MG TAKE 1 TABLET BY CHRISTAL TH TWICE A DAY DIRECTED predniSONE 1 MG TAKE 5 TABLETS BY MO UT ONCE DAILY WITH FOOD FOR 30 DAYS Next Appt Details Follow Up: 4 Weeks, Reason: Office visit Provider Name:Gage Ruelasne, 02/21/2024 10:30:00 AM, [address] [place] [address] [place] [address], [facility], [address], Progress Notes * Zakia GUIDOOB:1950 (73 yo F)Acc No.[id number]:11/29/2023 Patient:?Roseann GUIDO Provider:?Gage Day MD :1950???Age:73 Y???Sex:Female D ate:11/29/2023 Address:[address] [place] [address] [address] [facility] Pcp:Sg Zhong MD Subjective: * Chief Complaints: * ???ITPCoagulopathyHistory of pulmonary embolismHypertensionOverweight * HPI: ???:? This telehealth visit took place over 15 minutes with the patient at home and me in my office.? She gave consent for billing.? This was a periodic visit to manage her ITP.? Her platelet count is adequate on the current dose of prednisone which was continued without change for the next 4 weeks.? She has had no symptoms of blood clots.? She has had no bleeding.? She has been compliant with all of her medications.? She says she saw her primary care recently and her blood pressure was controlled.? She is trying to lose weight. ?Telehealth?Location of provider rendering services:?{...} [address] [facility] [address] ?Location of patient:?address listed in demographics for today's visit ?Patient identification confirmed using:?Name, ?Telehealth method:?Telephone only. Patient not visible to care provider. ?Consent:?Patient verbally consented to treatment, Patient verbally consented to billing insurance company, Patient informed of any privacy concerns related to method of visit ?Total time spent with patient (mins)?15 * ROS:?General/Constitutional:?pain?only normal aches and pains.?Chills?denies.?Fatigue?admits.?Fever?denies.?ENT:?Decreased hearing?denies.?Respiratory:?Cough?denies.?Cardiovascular:?Chest pain with exertion?denies.?Dyspnea on exertion?denies.?Shortness of breath?denies.?Gastrointestinal:?Constipation?occasional.?Decreased appetite?denies.?Diarrhea?denies.?Heartburn?denies.?Nausea?denies.?Rectal bleeding?denies.?Vomiting?denies.?Hematology:?bruising?denies.?petechiae?denies.?Swollen glands?none have been noted.?Genitourinary:?Frequent urination?denies.?Musculoskeletal:?Muscle aches?denies.?Painful joints?denies.?Sciatica?denies.?Weakness?denies.?Skin:?Itching?denies.?Rash?denies.?Skin lesion(s)?denies.?Neurologic:?Difficulty speaking?denies.?Dizziness?denies.?Headache?denies.?Low back pain?denies.?Psychiatric:?Depressed mood?denies.? * Medical History:? * Surgical History:?aspiration cyst right breast, benign apocrine cyst 12/2013negative colonoscopy 2008bone marrow biopsy and aspirate. Iliac crest 05/2014Colonoscopy, [facility], Dr. Morel, sessile serrated polypoid adenoma with [...] of mental illness or substance abuse. * Social History:?Tobacco Use:?Tobacco Use/Smoking?Patient is a?nonsmoker ?Additional Findings: Tobacco Non-User?Aggressive non-smoker ???She has been to [place] for 39 years. She has never had a transfusion and is not a Shinto. 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 She has no toxic exposures. * Medications:?TakingpredniSON E 1 MG Tablet TAKE [...] reviewed and reconciled with the patient * Allergies:?PenicillinSulfana castaneda[Allergies Verified] Objective: * Vitals:?Ht: 67.5, Wt:168, BM I:25.92, Ht-cm: 171.45, Wt-k.2. * ???Past Orders: Lab:Complete Blood Count Aut o Diff * Collection Date 11/28/2023 11/01/2023 10/10/202301/202 4 Collection Time 08:03 AM 07:50 AM 07:51 AM 07:53 AM Order Date 11/28/2023 11/01/2023 10/10/2023 09/19/2023 White Blood Count 5.8 (Ref Range: 4.8-10.8 X10*3/uL) 5.8 (Ref Range: 4.8-10.8 X10*3/uL) 5.2 (Ref Range: 4.8-10.8 X10*3/uL) 7.0 (Ref Range: 4.8-10.8 X10*3/uL) Red Blood Count 3.66?L (Ref Range: 4.20-5.50 X10*6/uL) 3.45?L (Ref Range: 4.20-5.50 X10*6/uL) 3.48?L (Ref Range: 4.20-5.50 X10*6/uL) 3.52?L (Ref Range: 4.20-5.50 X10*6/uL) Hemoglobin 11.9?L (Ref Range: 12.0-16.0 g/dl) 11.1?L (Ref Range: 12.0-16.0 g/dl) 11.2?L (Ref Range: 12.0-16.0 g/dl) 11.5?L (Ref Range: 12.0-16.0 g/dl) Hematocrit 36.8?L (Ref Range: 37.0-47.0 %) 34.9?L (Ref Range: 37.0-47.0 %) 34.9?L (Ref Range: 37.0-47.0 %) 35.5?L (Ref Range: 37.0-47.0 %) Mean Corpuscular Volume 100.5?H (Ref Range: 80.0-98.0 fL) 101.2?H (Ref Range: 80.0-98.0 fL) 100.3?H (Ref Range: 80.0-98.0 fL) 100.9?H (Ref Range: 80.0-98.0 fL) Mean Corpuscular Hemoglobin 32.5 (Ref Range: 27.0-33.0 pg) 32.2 (Ref Range: 27.0-33.0 pg) 32.2 (Ref Range: 27.0-33.0 pg) 32.7 (Ref Range: 27.0-33.0 pg) Mean Corpuscular HGB Conc 32.3 (Ref Range: 31.0-35.0 g/dl) 31.8 (Ref Range: 31.0-35.0 g/dl) 32.1 (Ref Range: 31.0-35.0 g/dl) 32.4 (Ref Range: 31.0-35.0 g/dl) Red Cell Distribution Width 14.5 (Ref Range: 11.0-16.0 %) 14.5 (Ref Range: 11.0-16.0 %) 14.4 (Ref Range: 11.0-16.0 %) 14.2 (Ref Range: 11.0-16.0 %) Platelet Count 194 (Ref Range: 160-400 X10*3/uL) 179 (Ref Range: 160-400 X10*3/uL) 181 (Ref Range: 160-400 X10*3/uL) 208 (Ref Range: 160-400 X10*3/uL) Mean Platelet Volume 8.9?L (Ref Range: 9.4-12.3 fL) 9.2?L (Ref Range: 9.4-12.3 fL) 9.1?L (Ref Range: 9.4-12.3 fL) 8.9?L (Ref Range: 9.4-12.3 fL) Neutrophils Percent Auto 66.4 (Ref Range: 45-73 %) 64.5 (Ref Range: 45-73 %) 61.7 (Ref Range: 45-73 %) 66.6 (Ref Range: 45-73 %) Imm Gran Pct Auto 0.3 (Ref Range: 0.0-0.4 %) 0.5?H (Ref Range: 0.0-0.4 %) 0.6?H (Ref Range: 0.0-0.4 %) 0.4 (Ref Range: 0.0-0.4 %) Lymphocytes Percent Auto 22.4 (Ref Range: 20-40 %) 23.7 (Ref Range: 20-40 %) 26.1 (Ref Range: 20-40 %) 21.9 (Ref Range: 20-40 %) Monocytes Percent Auto 9.7 (Ref Range: 2-11 %) 10.5 (Ref Range: 2-11 %) 10.6 (Ref Range: 2-11 %) 9.4 (Ref Range: 2-11 %) Eosinophils Percent Auto 0.7 (Ref Range: 0-4 %) 0.5 (Ref Range: 0-4 %) 0.6 (Ref Range: 0-4 %) 1.1 (Ref Range: 0-4 %) Basophils Percent Auto 0.5 (Ref Range: 0-2 %) 0.3 (Ref Range: 0-2 %) 0.4 (Ref Range: 0-2 %) 0.6 (Ref Range: 0-2 %) NRBC Pct Auto 0.0 (Ref Range: 0.0-0.2 /100WBC) 0.0 (Ref Range: 0.0-0.2 /100WBC) 0.0 (Ref Range: 0.0-0.2 /100WBC) 0.0 (Ref Range: 0.0-0.2 /100WBC) Neutrophils Absolute Auto 3.8 (Ref Range: 2.0-8.3 x10*3/uL) 3.7 (Ref Range: 2.0-8.3 x10*3/uL) 3.2 (Ref Range: 2.0-8.3 x10*3/uL) 4.7 (Ref Range: 2.0-8.3 x10*3/uL) Imm Gran Abs Auto 0.02 (Ref Range: 0.00-0.03 X10*3/uL) 0.03 (Ref Range: 0.00-0.03 X10*3/uL) 0.03 (Ref Range: 0.00-0.03 X10*3/uL) 0.03 (Ref Range: 0.00-0.03 X10*3/uL) Lymphocytes Absolute Auto 1.3 (Ref Range: 1.2-4.9 X10*3/uL) 1.4 (Ref Range: 1.2-4.9 X10*3/uL) 1.4 (Ref Range: 1.2-4.9 X10*3/uL) 1.5 (Ref Range: 1.2-4.9 X10*3/uL) Monocytes Absolute Auto 0.6 (Ref Range: 0.1-1.2 X10*3/uL) 0.6 (Ref Range: 0.1-1.2 X10*3/uL) 0.6 (Ref Range: 0.1-1.2 X10*3/uL) 0.7 (Ref Range: 0.1-1.2 X10*3/uL) Eosinophils Absolute Auto 0.0 (Ref Range: 0.0-0.4 X10*3/uL) 0.0 (Ref Range: 0.0-0.4 X10*3/uL) 0.0 (Ref Range: 0.0-0.4 X10*3/uL) 0.1 (Ref Range: 0.0-0.4 X10*3/uL) Basophils Absolute Auto 0.0 (Ref Range: 0.0-0.2 X10*3/uL) 0.0 (Ref Range: 0.0-0.2 X10*3/uL) 0.0 (Ref Range: 0.0-0.2 X10*3/uL) 0.0 (Ref Range: 0.0-0.2 X10*3/uL) NRBC Abs Auto 0.000 (Ref Range: 0.0-0.012 X10*3/uL) 0.000 (Ref Range: 0.0-0.012 X10*3/uL) 0.000 (Ref Range: 0.0-0.012 X10*3/uL) 0.000 (Ref Range: 0.0-0.012 X10*3/uL) * Lab:[facility] * Collection Date 09/19/2023 08/08/2023 Collection Time 07:53 AM 07:33 AM Order Date 09/19/2023 08/08/2023 Reticulocytes Absolute 0.053 (Ref Range: 0.026-0.095 X10*6/uL) 0.058 (Ref Range: 0.026-0.095 X10*6/uL) Immature Retic Fraction 15.5 (Ref Range: 3.0-15.9 %) 10.2 (Ref Range: 3.0-15.9 %) Retic HGB Equivalent 32.2 (Ref Range: 30.0-35.0 pg) 33.9 (Ref Range: 30.0-35.0 pg) Reticulocyte Percent 1.5 (Ref Range: 0.5-1.8 %) 1.6 (Ref Range: 0.5-1.8 %) Assessment: * Assessment: 1.?ITP (idiopathic thrombocy topenic purpura) - D69.3 (Primary)???Notes :Her current platelet count is 194,000. She is stable at this time and no change in her therapy was needed.???2.?Essential hypertension - I10???Notes :She is managed by primary care and says her blood pressure has been in the normal range.???3.?Anticoagulated - Z79.01???Notes :She was continued on current therapy. No change was made.???4.?Lupus anticoagulant syndrome - D68.62???Notes :She has had no symptoms of blood clots or emboli or bleeding.She remains anticoagulated.???5.?Acute pulmonary embolism without acute cor pulmonale, unspecified pulmonary embolism type - I26.99???Notes :She has had no bleeding. She continues on her current therapy.???6.?Macrocytic anemia - D53.9???Notes :She is slowly developing anemia and macrocytosis. Her vitamin B12 and folic acid levels have been normal. Her reticulocyte count is unremarkable. She has had no bleeding. She'll be followed closely for possible myelodysplastic syndrome.???7.?Overweight (BMI 25.0-29.9) - E66.3???Notes :She has lost 18 pounds through diet and exercise. She remains only slightly overweight. I suggested she stabilize her weight at this level.??? Plan: * Treatment: 2.?Others? Continue predniSONE Tablet, 1 MG, TAKE 5 TABLETS BY MOUTH ONCE DAILY WITH FOOD FOR 30 DAYS;?Continue Eliquis Tablet, 5 MG, TAKE 1 TABLET BY MOUTH TWICE A DAY DIRECTED.?? * Procedure Codes:?90864 PHONE E/M BY PHYS 21-30 MIN * Preventive Medicine:? ??Counseling:?Care goal follow-up plan:?Counseling for abnormal BMI given?Yes ?Above Normal BMI Follow-up?Dietary management education, guidance, and counseling * Follow Up:?4 Weeks (Reason: Office visit) * Images: * Sign off status: Completed true * Provider:?Gage Day MD Date:?11/18 Generated for Brendan lantigua/Chacho/eTransmitting on:?02/17/2024 07:42 AM EST History and Physical Notes * HPI (History of Present Illness) Category Sub-Category Detail Notes Telehealth Location of [facility] rendering services:: {...} [address] [facility] [address] [place] [id number] Location of patient:: address listed in demographics [...]
--- OUTSIDE RECORDS SUMMARY | 2024-02-17 07:43 | XMS_ITS ---
Author Organization [facility] Address [address] [place] [address] Care Team Providers Care Sidehand Name Role Phone Sg Zhong MD Primary Care Provider Unavailab Gage Castellanos Unavailable [phone] REASON FOR VISIT has covid Encounters Encounter Location Date Provider Diagnosis [facility] [address] [place] [address] 09/09/2023 Gage Lizarraga PLAN OF TREATMENT No Information
--- OUTSIDE RECORDS SUMMARY | 2024-02-17 07:43 | XMS_ITS ---
Author Organization [facility] Address [address] [place] [address] Care Team Providers Care Textile Chemist Name Role Phone Sg Zhong MD Primary Care Provider UnavailGage Brown Unavailable [phone] ALLERGIES Allergen (clinical drug ingredient) Drug/Non Drug Allergy documented on EMR Reaction Allergy Type Onset Date Status Substance with sulfonamide structure and antibacterial mechanism of action (substance) Sulfa Antibiotics Unknown Drug Allergy Active Penicillin Unknown Drug Allergy Active antibiotics (uncoded) rash Allergy Active REASON FOR VISIT Patient presents today for a recall colonoscopy MEDICATIONS Medication SIG (Take, Route, Frequency, Duration) Notes Start Date End Date Status predniSONE 5 MG Oral for 30 Ac tive Vitamin B Complex - Orally Active Rosuvastatin Calcium 5 MG Oral for 90 Active Eliquis 5 MG Oral for 30 Activ e Vitamin D3 50 MCG (1999) TAKE 1 TABLE T DAILY Oral for 90 Active Metoprolol Tartrate 100 MG 1 tablet with food Orally Twice a day Active Calcium 500 MG 1 tablet with meals Orally Twice a day for 30 day(s) Active Multivitamin - 1 tablet Orally Once a day for 30 day(s) Active Losartan Potassium 50 MG Oral for 90 Active Levothyroxine Sodium 50 MCG Oral for 90 Active SOCIAL HISTORY Tobacco Use: Social History Observation Description Date Details (start date - stop date) Never Smoker NA - NA Sex Assigned At : Social History Observation Description Sex Assigned At Unknown Tobacco Use/Smoking Question Answer Notes Patient is a nonsmoker Alcohol Screen Question Answer Notes Did you have a drink containing alcohol in the p ast year? No Points 0 Interpretation Negative PROBLEMS Problem Type ICD Code Onset Dates Problem Status W/U Status Risk SNOMED Code Notes Problem History of adenomatous polyp of colon (Z86.010) Active confirmed History o f adenomatous polyp of colon (455389474) Problem Current use of jail anticoagulation (Z79.01) Active confirmed Long-term current use of anticoagulant (793485274) VITAL SIGNS BMI 26.85 kg/m2 06/11/2023 Blood pressure systolic 00 mm Hg 06/11/19 24 Blood pressure diastolic 00 mm Hg 024 Height 67.5 in 06/11/2023 Weight 174 lbs 06/11/2023 Encounters Encounter Location Date Provider Diagnosis [facility] [address] [place] [address] 06/11/2023 Gage Lizarraga History of adenomato us polyp of colon Z86.010 ; Current use of jail anticoagulation Z79.01 and Encounter for screening for malignant neoplasm of colon Z12.11 ASSESSMENTS Encounter Date Diagnosis Assessment Notes Treatment Notes Treatment Clinical Notes 06/11/2023 History of adenomato us polyp of colon (ICD-10 - Z86.010) 06/11/2023 Current use of terminal clerk anticoagulation (ICD-10 - Z79.01) 06/11/2023 Encounter for screening for malignant neoplasm of colon (ICD-10 - Z12.11) Stop Eliquis for three days before the colonoscopy and clear that with Dr. Day regarding possible Lovenox injections PLAN OF TREATMENT Treatment Notes Assessment Notes Encounter for screening for malignant neoplasm of colon Stop Eliquis for three days before the colonoscopy and clear that with Dr. Day regarding possible Lovenox injections Future Test Test Name Order Date COLONOSCOPY 06/11/2023 Next Appt Details Follow Up: prn, Reason: Progress Notes * Examination Category Sub-Category Detail Notes General Examination GENERAL APPEARANCE: pleasant , well nourished, well developed, in no acute distress HEAD: EYES: sclera non-icteric EARS: NOSE: THROAT: NECK/THYROID: no cervical lymphade nopathy, neck supple HEART: S1, S2 normal CHEST: LUNGS: clear to auscultatio n bilaterally ABDOMEN: normal bowel sounds, no guarding or rigidity, no guarding or rigidity, no masses palpable, soft, nontender, nondistended NEUROLOGIC: alert and oriented SKIN: nonjaundiced, no spi shama angiomata EXTREMITIES: no edema PERIPHERAL PULSES: BACK: BREASTS: MUSCULOSKELETAL: MALE GENITOURINARY: LYMPH NODES: RECTAL EXAM: FEMALE GENITOURINARY: ORAL CAVITY: mucosa moist
--- OUTSIDE RECORDS SUMMARY | 2024-02-17 07:43 | XMS_ITS | Patient Health Record ---
Author Organization Gage Day III, MD Address [address] [place] [address] [address] [place] [phone] Care Team Providers Care [facility] Customer Service Name Role Phone Sg Zhong MD Primary Care Provider Unavailab Gage Rainey Unavailable [phone] Allergies Allergen (clinical drug ingredient) Drug/Non Drug Allergy documented on EMR Reaction Allergy Type Onset Date Status sulfacetamide Sulfacetamide Unknown Drug Allergy Active Penicillin Unknown Drug Allergy Active Results Component Value Reference Range Notes Complete Blood Count Auto Di ff Reviewed date:02/23/2023 08:36:09 PM Interpretation: Performing Lab:[facility], [address] [place] [phone] Notes/Report: White Blood Count 7.6 4.8-10.8 X10*3/uL Red Blood Count 3.89 4.20-5.50 X10*6/uL Hemoglobin 12.1 12.0-16.0 g/dl Hematocrit 37.8 37.0-47.0 % Mean Corpuscular Volume 97.2 80.0-98.0 fL Mean Corpuscular Hemoglobin 31.1 27.0-33.0 pg Mean Corpuscular HGB Conc 32.0 31.0-35.0 g/dl Red Cell Distribution Width 14.8 11.0-16.0 % Platelet Count 236 160-400 X10*3/uL Mean Platelet Volume 9.7 9.4-12.3 fL Neutrophils Percent Auto 77.6 45-73 % Imm Gran Pct Auto 0.4 0.0-0.4 % Lymphocytes Percent Auto 14.5 20-40 % Monocytes Percent Auto 6.9 2-11 % Eosinophils Percent Auto 0.1 0-4 % Basophils Percent Auto 0.5 0-2 % NRBC Pct Auto 0.0 0.0-0.2 /100WBC Neutrophils Absolute Auto 5.9 2.0-8.3 x10*3/u L Imm Gran Abs Auto 0.03 0.00-0.03 X10*3/uL Lymphocytes Absolute Auto 1.1 1.2-4.9 X10*3/u L Monocytes Absolute Auto 0.5 0.1-1.2 X10*3/uL Eosinophils Absolute Auto 0.0 0.0-0.4 X10*3/u L Basophils Absolute Auto 0.0 0.0-0.2 X10*3/uL NRBC Abs Auto 0.000 0.0-0.012 X10*3/uL Complete Blood Count Auto Di ff Reviewed date:03/16/2023 11:47:06 AM Interpretation: Performing Lab:[facility], [address] [place] [phone] Notes/Report: White Blood Count 6.2 4.8-10.8 X10*3/uL Red Blood Count 3.68 4.20-5.50 X10*6/uL Hemoglobin 11.6 12.0-16.0 g/dl Hematocrit 36.6 37.0-47.0 % Mean Corpuscular Volume 99.5 80.0-98.0 fL Mean Corpuscular Hemoglobin 31.5 27.0-33.0 pg Mean Corpuscular HGB Conc 31.7 31.0-35.0 g/dl Red Cell Distribution Width 14.6 11.0-16.0 % Platelet Count 203 160-400 X10*3/uL Mean Platelet Volume 9.3 9.4-12.3 fL Neutrophils Percent Auto 62.0 45-73 % Imm Gran Pct Auto 0.2 0.0-0.4 % Lymphocytes Percent Auto 23.7 20-40 % Monocytes Percent Auto 12.7 2-11 % Eosinophils Percent Auto 0.8 0-4 % Basophils Percent Auto 0.6 0-2 % NRBC Pct Auto 0.0 0.0-0.2 /100WBC Neutrophils Absolute Auto 3.9 2.0-8.3 x10*3/u L Imm Gran Abs Auto 0.01 0.00-0.03 X10*3/uL Lymphocytes Absolute Auto 1.5 1.2-4.9 X10*3/u L Monocytes Absolute Auto 0.8 0.1-1.2 X10*3/uL Eosinophils Absolute Auto 0.1 0.0-0.4 X10*3/u L Basophils Absolute Auto 0.0 0.0-0.2 X10*3/uL NRBC Abs Auto 0.000 0.0-0.012 X10*3/uL Complete Blood Count Auto Di ff Reviewed date:04/05/2023 06:04:59 AM Interpretation: Performing Lab:[facility], [address] [place] [phone] Notes/Report: White Blood Count 5.0 4.8-10.8 X10*3/uL Red Blood Count 3.63 4.20-5.50 X10*6/uL Hemoglobin 11.3 12.0-16.0 g/dl Hematocrit 35.5 37.0-47.0 % Mean Corpuscular Volume 97.8 80.0-98.0 fL Mean Corpuscular Hemoglobin 31.1 27.0-33.0 pg Mean Corpuscular HGB Conc 31.8 31.0-35.0 g/dl Red Cell Distribution Width 14.6 11.0-16.0 % Platelet Count 189 160-400 X10*3/uL Mean Platelet Volume 8.6 9.4-12.3 fL Neutrophils Percent Auto 57.0 45-73 % Imm Gran Pct Auto 0.2 0.0-0.4 % Lymphocytes Percent Auto 30.3 20-40 % Monocytes Percent Auto 10.9 2-11 % Eosinophils Percent Auto 1.0 0-4 % Basophils Percent Auto 0.6 0-2 % NRBC Pct Auto 0.0 0.0-0.2 /100WBC Neutrophils Absolute Auto 2.8 2.0-8.3 x10*3/u L Imm Gran Abs Auto 0.01 0.00-0.03 X10*3/uL Lymphocytes Absolute Auto 1.5 1.2-4.9 X10*3/u L Monocytes Absolute Auto 0.5 0.1-1.2 X10*3/uL Eosinophils Absolute Auto 0.1 0.0-0.4 X10*3/u L Basophils Absolute Auto 0.0 0.0-0.2 X10*3/uL NRBC Abs Auto 0.000 0.0-0.012 X10*3/uL Complete Blood Count Auto Di ff Reviewed date:04/25/2023 09:13:58 AM Interpretation: Performing Lab:[facility], [address] [place] [phone] Notes/Report: White Blood Count 6.6 4.8-10.8 X10*3/uL Red Blood Count 3.71 4.20-5.50 X10*6/uL Hemoglobin 11.6 12.0-16.0 g/dl Hematocrit 36.1 37.0-47.0 % Mean Corpuscular Volume 97.3 80.0-98.0 fL Mean Corpuscular Hemoglobin 31.3 27.0-33.0 pg Mean Corpuscular HGB Conc 32.1 31.0-35.0 g/dl Red Cell Distribution Width 14.7 11.0-16.0 % Platelet Count 211 160-400 X10*3/uL Mean Platelet Volume 9.5 9.4-12.3 fL Neutrophils Percent Auto 67.7 45-73 % Imm Gran Pct Auto 0.5 0.0-0.4 % Lymphocytes Percent Auto 20.8 20-40 % Monocytes Percent Auto 9.8 2-11 % Eosinophils Percent Auto 0.6 0-4 % Basophils Percent Auto 0.6 0-2 % NRBC Pct Auto 0.0 0.0-0.2 /100WBC Neutrophils Absolute Auto 4.5 2.0-8.3 x10*3/u L Imm Gran Abs Auto 0.03 0.00-0.03 X10*3/uL Lymphocytes Absolute Auto 1.4 1.2-4.9 X10*3/u L Monocytes Absolute Auto 0.7 0.1-1.2 X10*3/uL Eosinophils Absolute Auto 0.0 0.0-0.4 X10*3/u L Basophils Absolute Auto 0.0 0.0-0.2 X10*3/uL NRBC Abs Auto 0.000 0.0-0.012 X10*3/uL Complete Blood Count Auto Di ff Reviewed date:05/16/2023 08:48:01 AM Interpretation: Performing Lab:[address] [phone] Notes/Report: White Blood Count 6.3 4.8-10.8 X10*3/uL Red Blood Count 3.55 4.20-5.50 X10*6/uL Hemoglobin 11.2 12.0-16.0 g/dl Hematocrit 35.1 37.0-47.0 % Mean Corpuscular Volume 98.9 80.0-98.0 fL Mean Corpuscular Hemoglobin 31.5 27.0-33.0 pg Mean Corpuscular HGB Conc 31.9 31.0-35.0 g/dl Red Cell Distribution Width 14.4 11.0-16.0 % Platelet Count 210 160-400 X10*3/uL Mean Platelet Volume 9.5 9.4-12.3 fL Neutrophils Percent Auto 56.3 45-73 % Imm Gran Pct Auto 0.3 0.0-0.4 % Lymphocytes Percent Auto 31.2 20-40 % Monocytes Percent Auto 10.7 2-11 % Eosinophils Percent Auto 0.9 0-4 % Basophils Percent Auto 0.6 0-2 % NRBC Pct Auto 0.0 0.0-0.2 /100WBC Neutrophils Absolute Auto 3.6 2.0-8.3 x10*3/u L Imm Gran Abs Auto 0.02 0.00-0.03 X10*3/uL Lymphocytes Absolute Auto 2.0 1.2-4.9 X10*3/u L Monocytes Absolute Auto 0.7 0.1-1.2 X10*3/uL Eosinophils Absolute Auto 0.1 0.0-0.4 X10*3/u L Basophils Absolute Auto 0.0 0.0-0.2 X10*3/uL NRBC Abs Auto 0.000 0.0-0.012 X10*3/uL Complete Blood Count Auto Di ff Reviewed date:06/06/2023 08:31:56 PM Interpretation: Performing Lab:[facility], [address] [place] [phone] Notes/Report: White Blood Count 6.3 4.8-10.8 X10*3/uL Red Blood Count 3.69 4.20-5.50 X10*6/uL Hemoglobin 11.5 12.0-16.0 g/dl Hematocrit 37.1 37.0-47.0 % Mean Corpuscular Volume 100.5 80.0-98.0 fL Mean Corpuscular Hemoglobin 31.2 27.0-33.0 pg Mean Corpuscular HGB Conc 31.0 31.0-35.0 g/dl Red Cell Distribution Width 14.6 11.0-16.0 % Platelet Count 230 160-400 X10*3/uL Mean Platelet Volume 9.0 9.4-12.3 fL Neutrophils Percent Auto 61.6 45-73 % Imm Gran Pct Auto 0.3 0.0-0.4 % Lymphocytes Percent Auto 26.0 20-40 % Monocytes Percent Auto 10.6 2-11 % Eosinophils Percent Auto 1.0 0-4 % Basophils Percent Auto 0.5 0-2 % NRBC Pct Auto 0.0 0.0-0.2 /100WBC Neutrophils Absolute Auto 3.9 2.0-8.3 x10*3/u L Imm Gran Abs Auto 0.02 0.00-0.03 X10*3/uL Lymphocytes Absolute Auto 1.6 1.2-4.9 X10*3/u L Monocytes Absolute Auto 0.7 0.1-1.2 X10*3/uL Eosinophils Absolute Auto 0.1 0.0-0.4 X10*3/u L Basophils Absolute Auto 0.0 0.0-0.2 X10*3/uL NRBC Abs Auto 0.000 0.0-0.012 X10*3/uL Complete Blood Count Auto Di ff Reviewed date:07/19/2023 08:46:41 PM Interpretation: Performing Lab:[facility], [address] [place] [phone] Notes/Report: White Blood Count 6.0 4.8-10.8 X10*3/uL Red Blood Count 3.40 4.20-5.50 X10*6/uL Hemoglobin 10.8 12.0-16.0 g/dl Hematocrit 34.0 37.0-47.0 % Mean Corpuscular Volume 100.0 80.0-98.0 fL Mean Corpuscular Hemoglobin 31.8 27.0-33.0 pg Mean Corpuscular HGB Conc 31.8 31.0-35.0 g/dl Red Cell Distribution Width 14.6 11.0-16.0 % Platelet Count 195 160-400 X10*3/uL Mean Platelet Volume 9.1 9.4-12.3 fL Neutrophils Percent Auto 60.4 45-73 % Imm Gran Pct Auto 0.5 0.0-0.4 % Lymphocytes Percent Auto 27.1 20-40 % Monocytes Percent Auto 11.0 2-11 % Eosinophils Percent Auto 0.7 0-4 % Basophils Percent Auto 0.3 0-2 % NRBC Pct Auto 0.0 0.0-0.2 /100WBC Neutrophils Absolute Auto 3.6 2.0-8.3 x10*3/u L Imm Gran Abs Auto 0.03 0.00-0.03 X10*3/uL Lymphocytes Absolute Auto 1.6 1.2-4.9 X10*3/u L Monocytes Absolute Auto 0.7 0.1-1.2 X10*3/uL Eosinophils Absolute Auto 0.0 0.0-0.4 X10*3/u L Basophils Absolute Auto 0.0 0.0-0.2 X10*3/uL NRBC Abs Auto 0.000 0.0-0.012 X10*3/uL Complete Blood Count Auto Di ff Reviewed date:07/19/2023 08:46:41 PM Interpretation: Performing Lab:[facility], [address] [place] [phone] Notes/Report: White Blood Count 5.9 4.8-10.8 X10*3/uL Red Blood Count 3.56 4.20-5.50 X10*6/uL Hemoglobin 11.5 12.0-16.0 g/dl Hematocrit 35.4 37.0-47.0 % Mean Corpuscular Volume 99.4 80.0-98.0 fL Mean Corpuscular Hemoglobin 32.3 27.0-33.0 pg Mean Corpuscular HGB Conc 32.5 31.0-35.0 g/dl Red Cell Distribution Width 15.0 11.0-16.0 % Platelet Count 193 160-400 X10*3/uL Mean Platelet Volume 9.0 9.4-12.3 fL Neutrophils Percent Auto 59.6 45-73 % Imm Gran Pct Auto 0.3 0.0-0.4 % Lymphocytes Percent Auto 28.2 20-40 % Monocytes Percent Auto 10.4 2-11 % Eosinophils Percent Auto 1.0 0-4 % Basophils Percent Auto 0.5 0-2 % NRBC Pct Auto 0.0 0.0-0.2 /100WBC Neutrophils Absolute Auto 3.5 2.0-8.3 x10*3/u L Imm Gran Abs Auto 0.02 0.00-0.03 X10*3/uL Lymphocytes Absolute Auto 1.7 1.2-4.9 X10*3/u L Monocytes Absolute Auto 0.6 0.1-1.2 X10*3/uL Eosinophils Absolute Auto 0.1 0.0-0.4 X10*3/u L Basophils Absolute Auto 0.0 0.0-0.2 X10*3/uL NRBC Abs Auto 0.000 0.0-0.012 X10*3/uL Complete Blood Count Auto Di ff Reviewed date:08/10/2023 05:27:07 AM Interpretation: Performing Lab:[facility], [address] [place] [phone] Notes/Report: White Blood Count 5.9 4.8-10.8 X10*3/uL Red Blood Count 3.58 4.20-5.50 X10*6/uL Hemoglobin 11.6 12.0-16.0 g/dl Hematocrit 35.8 37.0-47.0 % Mean Corpuscular Volume 100.0 80.0-98.0 fL Mean Corpuscular Hemoglobin 32.4 27.0-33.0 pg Mean Corpuscular HGB Conc 32.4 31.0-35.0 g/dl Red Cell Distribution Width 14.6 11.0-16.0 % Platelet Count 217 160-400 X10*3/uL Mean Platelet Volume 9.2 9.4-12.3 fL Neutrophils Percent Auto 64.9 45-73 % Imm Gran Pct Auto 0.3 0.0-0.4 % Lymphocytes Percent Auto 23.3 20-40 % Monocytes Percent Auto 10.1 2-11 % Eosinophils Percent Auto 0.7 0-4 % Basophils Percent Auto 0.7 0-2 % NRBC Pct Auto 0.0 0.0-0.2 /100WBC Neutrophils Absolute Auto 3.9 2.0-8.3 x10*3/u L Imm Gran Abs Auto 0.02 0.00-0.03 X10*3/uL Lymphocytes Absolute Auto 1.4 1.2-4.9 X10*3/u L Monocytes Absolute Auto 0.6 0.1-1.2 X10*3/uL Eosinophils Absolute Auto 0.0 0.0-0.4 X10*3/u L Basophils Absolute Auto 0.0 0.0-0.2 X10*3/uL NRBC Abs Auto 0.000 0.0-0.012 X10*3/uL RETIC Reviewed date:08/10/2023 05:27:07 AM Interpretation: Performing Lab:[facility], [address] [place] [phone] Notes/Report: Reticulocytes Absolute 0.058 0.026-0.095 X10*6/ uL Immature Retic Fraction 10.2 3.0-15.9 % Retic HGB Equivalent 33.9 30.0-35.0 pg Reticulocyte Percent 1.6 0.5-1.8 % Comprehensive [place]. Panel Fa st Reviewed date:08/10/2023 05:27:07 AM Interpretation: Performing Lab:[facility], [address] [place] [phone] Notes/Report: Sodium 143 135-145 mmol/L Potassium 4.5 3.3-5.1 mmol/L Chloride 108 96-108 mmol/L Carbon Dioxide 28 22-29 mmol/L Anion Gap 12 12-20 Blood Urea Nitrogen 12 9-16 mg/dL Creatinine 0.80 0.5-1.4 mg/dL Estimated Glomerular Filt Rate > 60 NOTE: For -[place] individuals, multiply the result by 1.210. Chronic Kidney Disease: Estimated GFR < 60 mL/min/1.73m2 Severe Kidney Disease: Estimated GFR < 15 mL/min/1.73m2 Glucose Fasting 100 60-99 mg/dL A fasting glucose from 100-125 mg/dl is considered impaired (pre-diabetes). Calcium 9.3 8.4-10.2 mg/dL Bilirubin Total 0.3 0.0-1.0 mg/dL Aspartate Amino Transferase 21 5-31 U/L Alanine Aminotransferase 14 0-31 U/L Total Protein 6.9 6.5-8.0 g/dL Albumin Level 3.8 3.5-5.0 g/dL Alkaline Phosphatase 40 39-117 U/L Ferritin Reviewed date:08/10/2023 05:27:07 AM Interpretation: Performing Lab:[address] [phone] Notes/Report: Ferritin 41 10-250 ng/mL Vitamin B12 Reviewed date:08/10/2023 05:27:07 AM Interpretation: Performing Lab:[address] [phone] Notes/Report: Vitamin B12 638 200-900 pg/mL NORMAL 200-900 PG/ML INDETERMINATE 160-199 PG/ML DEFICIENT < 160 PG/ML Folate Reviewed date:08/10/2023 05:27:07 AM Interpretation: Performing Lab:[facility], [address] [place] [phone] Notes/Report: Folate 13.8 > or = 4.0 ng/mL Reference Values: > or = 4.0 ng/mL < 4.0 ng/mL suggests folate deficiency Methotrexate, aminopterin and folinic acid (leucovorin) are chemotherapeutic agents whose molecular structures are similar to folate; therefore, the [employer] folate assay cannot be used for patients using these drugs. Complete Blood Count Auto Di ff Reviewed date:08/30/2023 11:52:12 AM Interpretation: Performing Lab:[address] [phone] Notes/Report: White Blood Count 5.4 4.8-10.8 X10*3/uL Red Blood Count 3.33 4.20-5.50 X10*6/uL Hemoglobin 10.7 12.0-16.0 g/dl Hematocrit 33.7 37.0-47.0 % Mean Corpuscular Volume 101.2 80.0-98.0 fL Mean Corpuscular Hemoglobin 32.1 27.0-33.0 pg Mean Corpuscular HGB Conc 31.8 31.0-35.0 g/dl Red Cell Distribution Width 14.7 11.0-16.0 % Platelet Count 184 160-400 X10*3/uL Mean Platelet Volume 9.0 9.4-12.3 fL Neutrophils Percent Auto 57.9 45-73 % Imm Gran Pct Auto 0.7 0.0-0.4 % Lymphocytes Percent Auto 28.4 20-40 % Monocytes Percent Auto 10.9 2-11 % Eosinophils Percent Auto 1.5 0-4 % Basophils Percent Auto 0.6 0-2 % NRBC Pct Auto 0.0 0.0-0.2 /100WBC Neutrophils Absolute Auto 3.1 2.0-8.3 x10*3/u L Imm Gran Abs Auto 0.04 0.00-0.03 X10*3/uL Lymphocytes Absolute Auto 1.5 1.2-4.9 X10*3/u L Monocytes Absolute Auto 0.6 0.1-1.2 X10*3/uL Eosinophils Absolute Auto 0.1 0.0-0.4 X10*3/u L Basophils Absolute Auto 0.0 0.0-0.2 X10*3/uL NRBC Abs Auto 0.000 0.0-0.012 X10*3/uL Complete Blood Count Auto Di ff Reviewed date:09/19/2023 11:01:09 AM Interpretation: Performing Lab:[facility], [address] [place] [phone] Notes/Report: White Blood Count 7.0 4.8-10.8 X10*3/uL Red Blood Count 3.52 4.20-5.50 X10*6/uL Hemoglobin 11.5 12.0-16.0 g/dl Hematocrit 35.5 37.0-47.0 % Mean Corpuscular Volume 100.9 80.0-98.0 fL Mean Corpuscular Hemoglobin 32.7 27.0-33.0 pg Mean Corpuscular HGB Conc 32.4 31.0-35.0 g/dl Red Cell Distribution Width 14.2 11.0-16.0 % Platelet Count 208 160-400 X10*3/uL Mean Platelet Volume 8.9 9.4-12.3 fL Neutrophils Percent Auto 66.6 45-73 % Imm Gran Pct Auto 0.4 0.0-0.4 % Lymphocytes Percent Auto 21.9 20-40 % Monocytes Percent Auto 9.4 2-11 % Eosinophils Percent Auto 1.1 0-4 % Basophils Percent Auto 0.6 0-2 % NRBC Pct Auto 0.0 0.0-0.2 /100WBC Neutrophils Absolute Auto 4.7 2.0-8.3 x10*3/u L Imm Gran Abs Auto 0.03 0.00-0.03 X10*3/uL Lymphocytes Absolute Auto 1.5 1.2-4.9 X10*3/u L Monocytes Absolute Auto 0.7 0.1-1.2 X10*3/uL Eosinophils Absolute Auto 0.1 0.0-0.4 X10*3/u L Basophils Absolute Auto 0.0 0.0-0.2 X10*3/uL NRBC Abs Auto 0.000 0.0-0.012 X10*3/uL RETIC Reviewed date:09/19/2023 11:01:09 AM Interpretation: Performing Lab:[facility], [address] [place] [phone] Notes/Report: Reticulocytes Absolute 0.053 0.026-0.095 X10*6/ uL Immature Retic Fraction 15.5 3.0-15.9 % Retic HGB Equivalent 32.2 30.0-35.0 pg Reticulocyte Percent 1.5 0.5-1.8 % Complete Blood Count Auto Di ff Reviewed date:10/11/2023 03:43:05 PM Interpretation: Performing Lab:[facility], [address] [place] [phone] Notes/Report: White Blood Count 5.2 4.8-10.8 X10*3/uL Red Blood Count 3.48 4.20-5.50 X10*6/uL Hemoglobin 11.2 12.0-16.0 g/dl Hematocrit 34.9 37.0-47.0 % Mean Corpuscular Volume 100.3 80.0-98.0 fL Mean Corpuscular Hemoglobin 32.2 27.0-33.0 pg Mean Corpuscular HGB Conc 32.1 31.0-35.0 g/dl Red Cell Distribution Width 14.4 11.0-16.0 % Platelet Count 181 160-400 X10*3/uL Mean Platelet Volume 9.1 9.4-12.3 fL Neutrophils Percent Auto 61.7 45-73 % Imm Gran Pct Auto 0.6 0.0-0.4 % Lymphocytes Percent Auto 26.1 20-40 % Monocytes Percent Auto 10.6 2-11 % Eosinophils Percent Auto 0.6 0-4 % Basophils Percent Auto 0.4 0-2 % NRBC Pct Auto 0.0 0.0-0.2 /100WBC Neutrophils Absolute Auto 3.2 2.0-8.3 x10*3/u L Imm Gran Abs Auto 0.03 0.00-0.03 X10*3/uL Lymphocytes Absolute Auto 1.4 1.2-4.9 X10*3/u L Monocytes Absolute Auto 0.6 0.1-1.2 X10*3/uL Eosinophils Absolute Auto 0.0 0.0-0.4 X10*3/u L Basophils Absolute Auto 0.0 0.0-0.2 X10*3/uL NRBC Abs Auto 0.000 0.0-0.012 X10*3/uL Complete Blood Count Auto Di ff Reviewed date:11/01/2023 08:39:11 PM Interpretation: Performing Lab:[facility], [address] [place] [phone] Notes/Report: White Blood Count 5.8 4.8-10.8 X10*3/uL Red Blood Count 3.45 4.20-5.50 X10*6/uL Hemoglobin 11.1 12.0-16.0 g/dl Hematocrit 34.9 37.0-47.0 % Mean Corpuscular Volume 101.2 80.0-98.0 fL Mean Corpuscular Hemoglobin 32.2 27.0-33.0 pg Mean Corpuscular HGB Conc 31.8 31.0-35.0 g/dl Red Cell Distribution Width 14.5 11.0-16.0 % Platelet Count 179 160-400 X10*3/uL Mean Platelet Volume 9.2 9.4-12.3 fL Neutrophils Percent Auto 64.5 45-73 % Imm Gran Pct Auto 0.5 0.0-0.4 % Lymphocytes Percent Auto 23.7 20-40 % Monocytes Percent Auto 10.5 2-11 % Eosinophils Percent Auto 0.5 0-4 % Basophils Percent Auto 0.3 0-2 % NRBC Pct Auto 0.0 0.0-0.2 /100WBC Neutrophils Absolute Auto 3.7 2.0-8.3 x10*3/u L Imm Gran Abs Auto 0.03 0.00-0.03 X10*3/uL Lymphocytes Absolute Auto 1.4 1.2-4.9 X10*3/u L Monocytes Absolute Auto 0.6 0.1-1.2 X10*3/uL Eosinophils Absolute Auto 0.0 0.0-0.4 X10*3/u L Basophils Absolute Auto 0.0 0.0-0.2 X10*3/uL NRBC Abs Auto 0.000 0.0-0.012 X10*3/uL Complete Blood Count Auto Di ff Reviewed date:11/29/2023 07:42:20 PM Interpretation: Performing Lab:[facility], [address] [place] [phone] Notes/Report: White Blood Count 5.8 4.8-10.8 X10*3/uL Red Blood Count 3.66 4.20-5.50 X10*6/uL Hemoglobin 11.9 12.0-16.0 g/dl Hematocrit 36.8 37.0-47.0 % Mean Corpuscular Volume 100.5 80.0-98.0 fL Mean Corpuscular Hemoglobin 32.5 27.0-33.0 pg Mean Corpuscular HGB Conc 32.3 31.0-35.0 g/dl Red Cell Distribution Width 14.5 11.0-16.0 % Platelet Count 194 160-400 X10*3/uL Mean Platelet Volume 8.9 9.4-12.3 fL Neutrophils Percent Auto 66.4 45-73 % Imm Gran Pct Auto 0.3 0.0-0.4 % Lymphocytes Percent Auto 22.4 20-40 % Monocytes Percent Auto 9.7 2-11 % Eosinophils Percent Auto 0.7 0-4 % Basophils Percent Auto 0.5 0-2 % NRBC Pct Auto 0.0 0.0-0.2 /100WBC Neutrophils Absolute Auto 3.8 2.0-8.3 x10*3/u L Imm Gran Abs Auto 0.02 0.00-0.03 X10*3/uL Lymphocytes Absolute Auto 1.3 1.2-4.9 X10*3/u L Monocytes Absolute Auto 0.6 0.1-1.2 X10*3/uL Eosinophils Absolute Auto 0.0 0.0-0.4 X10*3/u L Basophils Absolute Auto 0.0 0.0-0.2 X10*3/uL NRBC Abs Auto 0.000 0.0-0.012 X10*3/uL Complete Blood Count Auto Di ff Reviewed date:12/26/2023 09:20:33 AM Interpretation: Performing Lab:[facility], [address] [place] [phone] Notes/Report: White Blood Count 7.4 4.8-10.8 X10*3/uL Red Blood Count 3.57 4.20-5.50 X10*6/uL Hemoglobin 11.6 12.0-16.0 g/dl Hematocrit 35.6 37.0-47.0 % Mean Corpuscular Volume 99.7 80.0-98.0 fL Mean Corpuscular Hemoglobin 32.5 27.0-33.0 pg Mean Corpuscular HGB Conc 32.6 31.0-35.0 g/dl Red Cell Distribution Width 14.6 11.0-16.0 % Platelet Count 212 160-400 X10*3/uL Mean Platelet Volume 9.1 9.4-12.3 fL Neutrophils Percent Auto 71.3 45-73 % Imm Gran Pct Auto 0.4 0.0-0.4 % Lymphocytes Percent Auto 18.8 20-40 % Monocytes Percent Auto 8.5 2-11 % Eosinophils Percent Auto 0.5 0-4 % Basophils Percent Auto 0.5 0-2 % NRBC Pct Auto 0.0 0.0-0.2 /100WBC Neutrophils Absolute Auto 5.3 2.0-8.3 x10*3/u L Imm Gran Abs Auto 0.03 0.00-0.03 X10*3/uL Lymphocytes Absolute Auto 1.4 1.2-4.9 X10*3/u L Monocytes Absolute Auto 0.6 0.1-1.2 X10*3/uL Eosinophils Absolute Auto 0.0 0.0-0.4 X10*3/u L Basophils Absolute Auto 0.0 0.0-0.2 X10*3/uL NRBC Abs Auto 0.000 0.0-0.012 X10*3/uL Complete Blood Count Auto Di ff Reviewed date:01/27/2024 05:20:37 AM Interpretation: Performing Lab:[facility], [address] [place] [id number] Notes/Report: White Blood Count 6.2 4.8-10.8 X10*3/uL Red Blood Count 3.55 4.20-5.50 X10*6/uL Hemoglobin 11.4 12.0-16.0 g/dl Hematocrit 36.3 37.0-47.0 % Mean Corpuscular Volume 102.3 80.0-98.0 fL Mean Corpuscular Hemoglobin 32.1 27.0-33.0 pg Mean Corpuscular HGB Conc 31.4 31.0-35.0 g/dl Red Cell Distribution Width 14.4 11.0-16.0 % Platelet Count 209 160-400 X10*3/uL Mean Platelet Volume 8.9 9.4-12.3 fL Neutrophils Percent Auto 61.3 45-73 % Imm Gran Pct Auto 0.5 0.0-0.4 % Lymphocytes Percent Auto 25.8 20-40 % Monocytes Percent Auto 11.1 2-11 % Eosinophils Percent Auto 0.8 0-4 % Basophils Percent Auto 0.5 0-2 % NRBC Pct Auto 0.0 0.0-0.2 /100WBC Neutrophils Absolute Auto 3.8 2.0-8.3 x10*3/u L Imm Gran Abs Auto 0.03 0.00-0.03 X10*3/uL Lymphocytes Absolute Auto 1.6 1.2-4.9 X10*3/u L Monocytes Absolute Auto 0.7 0.1-1.2 X10*3/uL Eosinophils Absolute Auto 0.1 0.0-0.4 X10*3/u L Basophils Absolute Auto 0.0 0.0-0.2 X10*3/uL NRBC Abs Auto 0.000 0.0-0.012 X10*3/uL Reason For Referral No Information Medications Medication SIG (Take, Route, Frequency, Duration) Notes Start Date End Date Status predniSONE 1 MG TAKE 5 TABLETS BY MO UTH ONCE DAILY WITH FOOD FOR 30 DAYS Active Eliquis 5 MG TAKE 1 TABLET BY CHRISTAL TH TWICE A DAY DIRECTED Active Metoprolol Succinate ER 75 mg 1 tablet Orally Once a day Active Levothyroxine Sodium 50 MCG 1 capsule Or ally Once a day Active Rosuvastatin Calcium 5 MG TAKE 1 TABLET BY MOUTH AT BEDTIME Oral Active Immunizations Vaccine Route Administration Date Status Comme nts Pneumococcal Unknown 06/16/2013 Administered patient keith lled and stated this is when she had the injection Pneumococcal Unknown 07/29/2014 Pending patient stat ed she had this injection done 06/16/2013 Social History Sex Assigned At : Social History Observation Description Sex Assigned At Female Alcohol Screen Question Answer Notes Did you have a drink containing alcohol in the p ast year? No Points 0 Interpretation Negative Problems Problem Type SNOMED Code ICD Code Onset Dates Problem Status W/U Status Risk Notes Problem 812139009 Overweight (BMI 25.0-29.9) (E66.3) Active confirmed She has lost 18 pounds through diet and exercise. She remains only slightly overweight. I suggested she stabilize her weight at this level. Problem 91695156 Allergy to sulfa drugs (Z88.2) Active confirmed Problem Lupus anticoagulant disorder (23958416) Lupus anticoagulant syndrome (D68.62) Active confirmed She has had no symptoms of blood clots or emboli or bleeding.She remains anticoagulated. Problem 656392562 Anticoagulated (Z79.01) Active confirmed She was continued on current therapy. No change was made. Problem 28331956 ITP (idiopathic thrombocytopenic purpura) (D69.3) Active confirmed Her current platelet count is 209,000. She is stable at this time and no change in her therapy was needed. She will take a 3 day cycle of prednisone 5 mg, 5 mg, 2.5 mg. Her next visit will be in 4 weeks after the holidays after CBC. Problem 43719486 Essential hypertension (I10) Active confirmed She is managed by primary care and says her blood pressure has been in the normal range. Problem 375572036159637 History of herpes zoster (Z86.19) Active confirmed No treatment is required for this historical event. Problem 541585257 Allergy history, penicillin (Z88.0) Active confirmed Problem 54528490 Macrocytic anemia (D53.9) Active confirmed She is slowly developing anemia and macrocytosis. Her vitamin B12 and folic acid levels have been normal. Her reticulocyte count is unremarkable. She has had no bleeding. She'll be followed closely for possible myelodysplastic syndrome. Problem 055634766 Acute pulmonary embolism without acute cor pulmonale, unspecified pulmonary embolism type (I26.99) Active confirmed She has had no bleeding. She continues on her current therapy. Vital Signs Heart Rate 88 /min 2023 Temperature 97.5 degrees Fahrenheit 2023 Blood pressure diastolic 75 mm Hg 2023 Height 67.5 in 01/22/2024 Blood pressure systolic 132 mm Hg 2023 Weight 168 lbs 01/22/2024 BMI 25.92 kg/m2 01/22/2024 Encounters Encounter Location Date Provider Diagnosis Gage Day III, MD [address] [place] [address] [place] [address] 02/22/2023 Gage Day ITP (idiopathic thrombocytopenic purpura) D69.3 ; Essential hypertension I10 ; Anticoagulated Z79.01 ; Obesity (BMI 30.0-34.9) E66.9 ; Lupus anticoagulant syndrome D68.62 and Acute pulmonary embolism without acute cor pulmonale, unspecified pulmonary embolism type I26.99 Gage Day III, MD [address] [place] [address] [place] [address] 03/15/2023 Gage Day ITP (idiopathic thrombocytopenic purpura) D69.3 ; Essential hypertension I10 ; Anticoagulated Z79.01 ; Obesity (BMI 30.0-34.9) E66.9 ; Lupus anticoagulant syndrome D68.62 and Acute pulmonary embolism without acute cor pulmonale, unspecified pulmonary embolism type I26.99 Gage Day III, MD [address] [place] [address] [place] [address] 04/05/2023 Gage Day ITP (idiopathic thrombocytopenic purpura) D69.3 ; Essential hypertension I10 ; History of herpes zoster Z86.19 ; Allergy history, penicillin Z88.0 ; Allergy to sulfa drugs Z88.2 ; Anticoagulated Z79.01 ; Obesity (BMI 30.0-34.9) E66.9 ; Lupus anticoagulant syndrome D68.62 and Acute pulmonary embolism without acute cor pulmonale, unspecified pulmonary embolism type I26.99 Gage Day III, MD [address] [place] [address] [place] [address] 04/26/2023 Gage Day ITP (idiopathic thrombocytopenic purpura) D69.3 ; Essential hypertension I10 ; Anticoagulated Z79.01 ; Obesity (BMI 30.0-34.9) E66.9 ; Lupus anticoagulant syndrome D68.62 and Acute pulmonary embolism without acute cor pulmonale, unspecified pulmonary embolism type I26.99 Gage Day III, MD [address] [place] [address] [place] [address] 05/20/2023 Gage Day ITP (idiopathic thrombocytopenic purpura) D69.3 ; Essential hypertension I10 ; History of herpes zoster Z86.19 ; Lupus anticoagulant syndrome D68.62 ; Anticoagulated Z79.01 and Overweight E66.3 Gage Day III, MD [address] [place] [address] [place] [address] 06/07/2023 Gage Day ITP (idiopathic thrombocytopenic purpura) D69.3 ; Essential hypertension I10 ; Anticoagulated Z79.01 ; Lupus anticoagulant syndrome D68.62 ; Obesity (BMI 30.0-34.9) E66.9 and Acute pulmonary embolism without acute cor pulmonale, unspecified pulmonary embolism type I26.99 Gage Day III, MD [address] [place] [address] [place] [address] 06/28/2023 Gage Day ITP (idiopathic thrombocytopenic purpura) D69.3 ; Essential hypertension I10 ; Acute pulmonary embolism without acute cor pulmonale, unspecified pulmonary embolism type I26.99 ; Lupus anticoagulant syndrome D68.62 ; Obesity (BMI 30.0-34.9) E66.9 and Anticoagulated Z79.01 Gage Day III, MD [address] [place] [address] [place] [address] 07/19/2023 Gage Day ITP (idiopathic thrombocytopenic purpura) D69.3 ; Essential hypertension I10 ; Lupus anticoagulant syndrome D68.62 ; Acute pulmonary embolism without acute cor pulmonale, unspecified pulmonary embolism type I26.99 ; Obesity (BMI 30.0-34.9) E66.9 and Anticoagulated Z79.01 Gage Day III, MD [address] [facility] [place] [address] 08/09/2023 Gage Day ITP (idiopathic thrombocytopenic purpura) D69.3 ; Essential hypertension I10 ; Overweight E66.3 ; Lupus anticoagulant syndrome D68.62 and Acute pulmonary embolism without acute cor pulmonale, unspecified pulmonary embolism type I26.99 Gage Day III, MD [address] [place] [address] [facility] [place] [address] 08/30/2023 Gage Day ITP (idiopathic thrombocytopenic purpura) D69.3 ; Macrocytic anemia D53.9 ; Anticoagulated Z79.01 ; Obesity (BMI 30.0-34.9) E66.9 ; Lupus anticoagulant syndrome D68.62 ; Acute pulmonary embolism without acute cor pulmonale, unspecified pulmonary embolism type I26.99 and Essential hypertension I10 Gage Day III, MD [address] [place] [address] [place] [address] 09/20/2023 Gage Day ITP (idiopathic thrombocytopenic purpura) D69.3 ; Macrocytic anemia D53.9 ; Anticoagulated Z79.01 ; Lupus anticoagulant syndrome D68.62 ; Overweight (BMI 25.0-29.9) E66.3 and Acute pulmonary embolism without acute cor pulmonale, unspecified pulmonary embolism type I26.99 Gage Day III, MD [address] [place] [address] [place] [address] 10/11/2023 Gage Day ITP (idiopathic thrombocytopenic purpura) D69.3 ; Essential hypertension I10 ; Macrocytic anemia D53.9 ; Anticoagulated Z79.01 ; Lupus anticoagulant syndrome D68.62 ; Acute pulmonary embolism without acute cor pulmonale, unspecified pulmonary embolism type I26.99 and Overweight (BMI 25.0-29.9) E66.3 Gage Day III, MD [address] [place] [address] [place] [address] 2023 Gage Day ITP (idiopathic thrombocytopenic purpura) D69.3 ; Macrocytic anemia D53.9 ; Anticoagulated Z79.01 ; Lupus anticoagulant syndrome D68.62 ; Acute pulmonary embolism without acute cor pulmonale, unspecified pulmonary embolism type I26.99 and Overweight (BMI 25.0-29.9) E66.3 Gage Day III, MD [address] [place] [address] [place] [address] 11/29/2023 Gage Day ITP (idiopathic thrombocytopenic purpura) D69.3 ; Essential hypertension I10 ; Anticoagulated Z79.01 ; Lupus anticoagulant syndrome D68.62 ; Acute pulmonary embolism without acute cor pulmonale, unspecified pulmonary embolism type I26.99 ; Macrocytic anemia D53.9 and Overweight (BMI 25.0-29.9) E66.3 Gage Dya III, MD [address] [place] [address] [place] [address] 12/27/2023 Gage Day ITP (idiopathic thrombocytopenic purpura) D69.3 ; Overweight E66.3 ; Essential hypertension I10 ; Lupus anticoagulant syndrome D68.62 and Acute pulmonary embolism without acute cor pulmonale, unspecified pulmonary embolism type I26.99 Gage Day III, MD [address] [place] [address] [place] [address] 01/22/2024 Gage Day ITP (idiopathic thrombocytopenic purpura) D69.3 ; Essential hypertension I10 ; Overweight E66.3 ; Lupus anticoagulant syndrome D68.62 ; Acute pulmonary embolism without acute cor pulmonale, unspecified pulmonary embolism type I26.99 and Anticoagulated Z79.01 Gage Day III, MD [address] [place] [address] [place] [address] 06/05/2023 Gage Day ITP (idiopathic thrombocytopenic purpura) D69.3 Gage Day III, MD [address] [place] [address] [place] [address] 06/12/2023 Gage Day Assessments Encounter Date Diagnosis (ICD Code) Assessment Notes T reatment Notes Treatment Clinical Notes 02/22/2023 ITP (idiopathic thrombocytopenic purpura) (ICD-10 - D69.3) No change was made in her prednisone dose. She will have a CBC in 2 weeks and a follow-up visit. At that time. 02/22/2023 Essential hypertensi on (ICD-10 - I10) This is being managed primarily by primary care. She was told to come to the office on her next visit to have her vital signs measured. 03/15/2023 ITP (idiopathic thrombocytopenic purpura) (ICD-10 - D69.3) No change was made in her prednisone dose. She will have a CBC in 2 weeks and a follow-up visit. At that time. 03/15/2023 Essential hypertensi on (ICD-10 - I10) This is being managed primarily by primary care. She was told to come to the office on her next visit to have her vital signs measured. 04/05/2023 ITP (idiopathic thrombocytopenic purpura) (ICD-10 - D69.3) No change was made in her prednisone dose. She will have a CBC in 2 weeks and a follow-up visit. At that time. 04/05/2023 Essential hypertensi on (ICD-10 - I10) This is being managed primarily by primary care. She was told to come to the office on her next visit to have her vital signs measured. 04/26/2023 ITP (idiopathic thrombocytopenic purpura) (ICD-10 - D69.3) No change was made in her prednisone dose. She will have a CBC in 2 weeks and a follow-up visit. At that time. 04/26/2023 Essential hypertensi on (ICD-10 - I10) This is being managed primarily by primary care. She was told to come to the office on her next visit to have her vital signs measured. 05/20/2023 ITP (idiopathic thrombocytopenic purpura) (ICD-10 - D69.3) No change was made in her prednisone dose. She will have a CBC in 2 weeks and a follow-up visit. At that time. 05/20/2023 Essential hypertensi on (ICD-10 - I10) This is being managed primarily by primary care. She was told to come to the office on her next visit to have her vital signs measured. 06/07/2023 ITP (idiopathic thrombocytopenic purpura) (ICD-10 - D69.3) No change was made in her prednisone dose. She will have a CBC in 2 weeks and a follow-up visit. At that time. 06/07/2023 Essential hypertensi on (ICD-10 - I10) This is being managed primarily by primary care. She was told to come to the office on her next visit to have her vital signs measured. 06/28/2023 ITP (idiopathic thrombocytopenic purpura) (ICD-10 - D69.3) No change was made in her prednisone dose. She will have a CBC in 2 weeks and a follow-up visit. At that time. 06/28/2023 Essential hypertensi on (ICD-10 - I10) This is being managed primarily by primary care. She was told to come to the office on her next visit to have her vital signs measured. 07/19/2023 ITP (idiopathic thrombocytopenic purpura) (ICD-10 - D69.3) No change was made in her prednisone dose. She will have a CBC in 2 weeks and a follow-up visit. At that time. 07/19/2023 Essential hypertensi on (ICD-10 - I10) She is managed by primary care and says her blood pressure has been in the normal range. 08/09/2023 ITP (idiopathic thrombocytopenic purpura) (ICD-10 - D69.3) No change was made in her prednisone dose. She will have a CBC in 3 weeks and a follow-up visit. At that time.Her current platelet count is 217. She did not agree to a reduction in of prednisone which I suggested. 08/09/2023 Essential hypertensi on (ICD-10 - I10) She is managed by primary care and says her blood pressure has been in the normal range. 08/30/2023 ITP (idiopathic thrombocytopenic purpura) (ICD-10 - D69.3) Her current platelet count is 184,000. She is stable at this time and no change in her therapy was needed. 08/30/2023 Macrocytic anemia (ICD-10 - D53.9) She is slowly developing anemia and macrocytosis. Her vitamin B12 and folic acid levels have been normal. Her reticulocyte count is unremarkable. She has had no bleeding. She'll be followed closely for possible myelodysplastic syndrome. 09/20/2023 ITP (idiopathic thrombocytopenic purpura) (ICD-10 - D69.3) Her current platelet count is 184,000. She is stable at this time and no change in her therapy was needed. 09/20/2023 Macrocytic anemia (ICD-10 - D53.9) She is slowly developing anemia and macrocytosis. Her vitamin B12 and folic acid levels have been normal. Her reticulocyte count is unremarkable. She has had no bleeding. She'll be followed closely for possible myelodysplastic syndrome. 10/11/2023 ITP (idiopathic thrombocytopenic purpura) (ICD-10 - D69.3) Her current platelet count is 181,000. She is stable at this time and no change in her therapy was needed. 10/11/2023 Essential hypertensi on (ICD-10 - I10) She is managed by primary care and says her blood pressure has been in the normal range. 2023 ITP (idiopathic thrombocytopenic purpura) (ICD-10 - D69.3) Her current platelet count is 179,000. She is stable at this time and no change in her therapy was needed. 2023 Macrocytic anemia (ICD-10 - D53.9) She is slowly developing anemia and macrocytosis. Her vitamin B12 and folic acid levels have been normal. Her reticulocyte count is unremarkable. She has had no bleeding. She'll be followed closely for possible myelodysplastic syndrome. 11/29/2023 ITP (idiopathic thrombocytopenic purpura) (ICD-10 - D69.3) Her current platelet count is 194,000. She is stable at this time and no change in her therapy was needed. 11/29/2023 Essential hypertensi on (ICD-10 - I10) She is managed by primary care and says her blood pressure has been in the normal range. 12/27/2023 Overweight (ICD-10 - E66.3) We have discussed lifestyle modification in her diet and nutrition today. She will try to lose weight and 1/2 pound per week. 12/27/2023 ITP (idiopathic thrombocytopenic purpura) (ICD-10 - D69.3) Her current platelet count is 212,000. She is stable at this time and no change in her therapy was needed. 01/22/2024 ITP (idiopathic thrombocytopenic purpura) (ICD-10 - D69.3) Her current platelet count is 209,000. She is stable at this time and no change in her therapy was needed. She will take a 3 day cycle of prednisone 5 mg, 5 mg, 2.5 mg. Her next visit will be in 4 weeks after the holidays after CBC. 01/22/2024 Essential hypertensi on (ICD-10 - I10) She is managed by primary care and says her blood pressure has been in the normal range. 02/22/2023 Anticoagulated (ICD- 10 - Z79.01) She was continued on current therapy. No change was made. 03/15/2023 Anticoagulated (ICD- 10 - Z79.01) She was continued on current therapy. No change was made. 04/05/2023 History of herpes zoster (ICD-10 - Z86.19) No treatment is required for this historical event. 04/26/2023 Anticoagulated (ICD- 10 - Z79.01) She was continued on current therapy. No change was made. 05/20/2023 History of herpes zoster (ICD-10 - Z86.19) No treatment is required for this historical event. 06/07/2023 Anticoagulated (ICD- 10 - Z79.01) She was continued on current therapy. No change was made. 06/28/2023 Acute pulmonary embolism without acute cor pulmonale, unspecified pulmonary embolism type (ICD-10 - I26.99) She has had no bleeding. She continues on her current therapy. 07/19/2023 Lupus anticoagulant syndrome (ICD-10 - D68.62) She has had no symptoms of blood clots or emboli or bleeding.She remains anticoagulated. 08/09/2023 Overweight (ICD-10 - E66.3) We have discussed lifestyle modification in her diet and nutrition today. She will try to lose weight and 1/2 pound per week. 08/30/2023 Anticoagulated (ICD- 10 - Z79.01) She was continued on current therapy. No change was made. 09/20/2023 Anticoagulated (ICD- 10 - Z79.01) She was continued on current therapy. No change was made. 10/11/2023 Macrocytic anemia (ICD-10 - D53.9) She is slowly developing anemia and macrocytosis. Her vitamin B12 and folic acid levels have been normal. Her reticulocyte count is unremarkable. She has had no bleeding. She'll be followed closely for possible myelodysplastic syndrome. 2023 Anticoagulated (ICD- 10 - Z79.01) She was continued on current therapy. No change was made. 11/29/2023 Anticoagulated (ICD- 10 - Z79.01) She was continued on current therapy. No change was made. 12/27/2023 Essential hypertensi on (ICD-10 - I10) She is managed by primary care and says her blood pressure has been in the normal range. 01/22/2024 Overweight (ICD-10 - E66.3) We have discussed lifestyle modification in her diet and nutrition today. She will try to lose weight and 1/2 pound per week. 06/05/2023 ITP (idiopathic thrombocytopenic purpura) (ICD-10 - D69.3) 02/22/2023 Obesity (BMI 30.0-34.9) (ICD-10 - E66.9) She was given an appointment to return to the office to measure her vital signs as a viral syndrome has resolved. 03/15/2023 Obesity (BMI 30.0-34.9) (ICD-10 - E66.9) She was given an appointment to return to the office to measure her vital signs as a viral syndrome has resolved. 04/05/2023 Allergy history, penicillin (ICD-10 - Z88.0) 04/26/2023 Obesity (BMI 30.0-34.9) (ICD-10 - E66.9) She was given an appointment to return to the office to measure her vital signs as a viral syndrome has resolved. 05/20/2023 Lupus anticoagulant syndrome (ICD-10 - D68.62) She has had no symptoms of blood clots or emboli or bleeding.She remains anticoagulated. 06/07/2023 Lupus anticoagulant syndrome (ICD-10 - D68.62) She has had no symptoms of blood clots or emboli or bleeding.She remains anticoagulated. 06/28/2023 Lupus anticoagulant syndrome (ICD-10 - D68.62) She has had no symptoms of blood clots or emboli or bleeding.She remains anticoagulated. 07/19/2023 Acute pulmonary embolism without acute cor pulmonale, unspecified pulmonary embolism type (ICD-10 - I26.99) She has had no bleeding. She continues on her current therapy. 08/09/2023 Lupus anticoagulant syndrome (ICD-10 - D68.62) She has had no symptoms of blood clots or emboli or bleeding.She remains anticoagulated. 08/30/2023 Obesity (BMI 30.0-34.9) (ICD-10 - E66.9) She was given an appointment to return to the office to measure her vital signs as a viral syndrome has resolved. 09/20/2023 Lupus anticoagulant syndrome (ICD-10 - D68.62) She has had no symptoms of blood clots or emboli or bleeding.She remains anticoagulated. 10/11/2023 Anticoagulated (ICD- 10 - Z79.01) She was continued on current therapy. No change was made. 2023 Lupus anticoagulant syndrome (ICD-10 - D68.62) She has had no symptoms of blood clots or emboli or bleeding.She remains anticoagulated. 11/29/2023 Lupus anticoagulant syndrome (ICD-10 - D68.62) She has had no symptoms of blood clots or emboli or bleeding.She remains anticoagulated. 12/27/2023 Lupus anticoagulant syndrome (ICD-10 - D68.62) She has had no symptoms of blood clots or emboli or bleeding.She remains anticoagulated. 01/22/2024 Lupus anticoagulant syndrome (ICD-10 - D68.62) She has had no symptoms of blood clots or emboli or bleeding.She remains anticoagulated. 02/22/2023 Lupus anticoagulant syndrome (ICD-10 - D68.62) She has had no symptoms of blood clots or emboli or bleeding.She remains anticoagulated. 03/15/2023 Lupus anticoagulant syndrome (ICD-10 - D68.62) She has had no symptoms of blood clots or emboli or bleeding.She remains anticoagulated. 04/05/2023 Allergy to sulfa edith gs (ICD-10 - Z88.2) 04/26/2023 Lupus anticoagulant syndrome (ICD-10 - D68.62) She has had no symptoms of blood clots or emboli or bleeding.She remains anticoagulated. 05/20/2023 Anticoagulated (ICD- 10 - Z79.01) She was continued on current therapy. No change was made. 06/07/2023 Obesity (BMI 30.0-34.9) (ICD-10 - E66.9) She was given an appointment to return to the office to measure her vital signs as a viral syndrome has resolved. 06/28/2023 Obesity (BMI 30.0-34.9) (ICD-10 - E66.9) She was given an appointment to return to the office to measure her vital signs as a viral syndrome has resolved. 07/19/2023 Obesity (BMI 30.0-34.9) (ICD-10 - E66.9) She was given an appointment to return to the office to measure her vital signs as a viral syndrome has resolved. 08/09/2023 Acute pulmonary embolism without acute cor pulmonale, unspecified pulmonary embolism type (ICD-10 - I26.99) She has had no bleeding. She continues on her current therapy. 08/30/2023 Lupus anticoagulant syndrome (ICD-10 - D68.62) She has had no symptoms of blood clots or emboli or bleeding.She remains anticoagulated. 09/20/2023 Overweight (BMI 25.0-29.9) (ICD-10 - E66.3) We reviewed her diet and nutrition. She will continue her efforts at weight loss. 10/11/2023 Lupus anticoagulant syndrome (ICD-10 - D68.62) She has had no symptoms of blood clots or emboli or bleeding.She remains anticoagulated. 2023 Acute pulmonary embolism without acute cor pulmonale, unspecified pulmonary embolism type (ICD-10 - I26.99) She has had no bleeding. She continues on her current therapy. 11/29/2023 Acute pulmonary embolism without acute cor pulmonale, unspecified pulmonary embolism type (ICD-10 - I26.99) She has had no bleeding. She continues on her current therapy. 12/27/2023 Acute pulmonary embolism without acute cor pulmonale, unspecified pulmonary embolism type (ICD-10 - I26.99) She has had no bleeding. She continues on her current therapy. 01/22/2024 Acute pulmonary embolism without acute cor pulmonale, unspecified pulmonary embolism type (ICD-10 - I26.99) She has had no bleeding. She continues on her current therapy. 02/22/2023 Acute pulmonary embolism without acute cor pulmonale, unspecified pulmonary embolism type (ICD-10 - I26.99) She has had no bleeding. She continues on her current therapy. 03/15/2023 Acute pulmonary embolism without acute cor pulmonale, unspecified pulmonary embolism type (ICD-10 - I26.99) She has had no bleeding. She continues on her current therapy. 04/05/2023 Anticoagulated (ICD- 10 - Z79.01) She was continued on current therapy. No change was made. 04/26/2023 Acute pulmonary embolism without acute cor pulmonale, unspecified pulmonary embolism type (ICD-10 - I26.99) She has had no bleeding. She continues on her current therapy. 05/20/2023 Overweight (ICD-10 - E66.3) We have discussed lifestyle modification in her diet and nutrition today. She will try to lose weight and 1/2 pound per week. 06/07/2023 Acute pulmonary embolism without acute cor pulmonale, unspecified pulmonary embolism type (ICD-10 - I26.99) She has had no bleeding. She continues on her current therapy. 06/28/2023 Anticoagulated (ICD- 10 - Z79.01) She was continued on current therapy. No change was made. 07/19/2023 Anticoagulated (ICD- 10 - Z79.01) She was continued on current therapy. No change was made. 08/30/2023 Acute pulmonary embolism without acute cor pulmonale, unspecified pulmonary embolism type (ICD-10 - I26.99) She has had no bleeding. She continues on her current therapy. 09/20/2023 Acute pulmonary embolism without acute cor pulmonale, unspecified pulmonary embolism type (ICD-10 - I26.99) She has had no bleeding. She continues on her current therapy. 10/11/2023 Acute pulmonary embolism without acute cor pulmonale, unspecified pulmonary embolism type (ICD-10 - I26.99) She has had no bleeding. She continues on her current therapy. 2023 Overweight (BMI 25.0-29.9) (ICD-10 - E66.3) She has lost 18 pounds through diet and exercise. She remains only slightly overweight. I suggested she stabilize her weight at this level. 11/29/2023 Macrocytic anemia (ICD-10 - D53.9) She is slowly developing anemia and macrocytosis. Her vitamin B12 and folic acid levels have been normal. Her reticulocyte count is unremarkable. She has had no bleeding. She'll be followed closely for possible myelodysplastic syndrome. 01/22/2024 Anticoagulated (ICD- 10 - Z79.01) She was continued on current therapy. No change was made. 04/05/2023 Obesity (BMI 30.0-34.9) (ICD-10 - E66.9) She was given an appointment to return to the office to measure her vital signs as a viral syndrome has resolved. 08/30/2023 Essential hypertensi on (ICD-10 - I10) She is managed by primary care and says her blood pressure has been in the normal range. 10/11/2023 Overweight (BMI 25.0-29.9) (ICD-10 - E66.3) We reviewed her diet and nutrition. She will continue her efforts at weight loss. 11/29/2023 Overweight (BMI 25.0-29.9) (ICD-10 - E66.3) She has lost 18 pounds through diet and exercise. She remains only slightly overweight. I suggested she stabilize her weight at this level. 04/05/2023 Lupus anticoagulant syndrome (ICD-10 - D68.62) She has had no symptoms of blood clots or emboli or bleeding.She remains anticoagulated. 04/05/2023 Acute pulmonary embolism without acute cor pulmonale, unspecified pulmonary embolism type (ICD-10 - I26.99) She has had no bleeding. She continues on her current therapy. Plan Of Treatment Pending Test Test Name Order Date EKG 06/10/2017 PROFILE, RANDOM (COMPREHENSIVE METABOLIC ) 07/19/2023 RETICULOCYTE COUNT,CORRECTED 07/19/2023 MRI LUMBAR SPINE NO CONTRAST 06/12/2017 MRI PELVIS NO CONTRAST 06/12/2017 MRI THORACIC SPINE NO CONTRAST 8 BONE DENSITY DEXA 08/17/2022 CBC WITH AUTO DIFF 06/05/2023 CBC WITH AUTO DIFF 07/19/2023 Ferritin 07/19/2023 Vitamin B12 07/19/2023 Folate 07/19/2023 Next Appt Details Provider Name:Gage Day, 02/21/2024 10:30:00 AM, [address] [place] [address] LEIF YARBROUGH, [place], [address], Insurance Providers Payer Name Payer Address Payer Phone Subscriber Number Group Number Insured Name Patient Relationship to Insured Coverage Start Date Coverage End Date MEDICARE NGS [address] [place] [address] [id number] Roseann Guido Self - patient is the insured [facility] [address] [place], [place] [id number] Hay Roseann Self - patient is the insured Medical (General) History Medical History History ICD Code HTN (hypertension) 401.9 benign cyst right breast 2013 dental extraction without bleeding age [age] shingles 2012 sulfa allergy penicillin allergy Lupus anticoagulant, November 2019 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 Iliac c rest 05/2014 Colonoscopy, [facility], Dr. 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
--- OUTSIDE RECORDS SUMMARY | 2024-02-17 07:43 | XMS_ITS ---
Author Organization [facility] Address [address] [place] [address] Care Team Providers Care Rod Cup Filler Name Role Phone Sg Zhong MD Primary Care Provider Unavailab Gage Castellanos Unavailable [phone] REASON FOR VISIT screening,hx polyps PROBLEMS Problem Type ICD Code Onset Dates Problem Status W/U Status Risk SNOMED Code Notes Problem Personal history of colonic polyps (Z86.010) Active confirmed History of polyp of colon (situation) (258833126) Problem Diverticulosis of large intestine without perforation or abscess without bleeding (K57.30) Active confirmed Diverticul ar disease of colon (758018312) Encounters Encounter Location Date Provider Diagnosis [facility] Outpatient [address] [place] [phone] 09/11/2023 Gage Lizarraga Colon cancer scree javi Z12.11 ; Personal history of colonic polyps Z86.010 ; Family history of colon cancer Z80.0 ; Diverticulosis of large intestine without perforation or abscess without bleeding K57.30 and Other hemorrhoids K64.8 ASSESSMENTS Encounter Date Diagnosis Assessment Notes Treatment Notes Treatment Clinical Notes 09/11/2023 Colon cancer screening (ICD-10 - Z12.11) 09/11/2023 Personal history of colonic polyps (ICD-10 - Z86.010) 09/11/2023 Family history of colon cancer (ICD-10 - Z80.0) 09/11/2023 Diverticulosis of large intestine without perforation or abscess without bleeding (ICD-10 - K57.30) 09/11/2023 Other hemorrhoids (ICD-10 - K64.8) PLAN OF TREATMENT No Information
--- OUTSIDE RECORDS SUMMARY | 2024-02-17 07:43 | XMS_ITS | Patient Health Record ---
Author Organization [facility] Address [address] [place] [address] Care Team Providers Care Electrical Engineer Mep Name Role Phone Sg Zhong MD Primary Care Provider UnavailGage Brown Unavailable [phone] ALLERGIES Allergen (clinical drug ingredient) Drug/Non Drug Allergy documented on EMR Reaction Allergy Type Onset Date Status Substance with sulfonamide structure and antibacterial mechanism of action (substance) Sulfa Antibiotics Unknown Drug Allergy Active Penicillin Unknown Drug Allergy Active antibiotics (uncoded) rash Allergy Active REASON FOR REFERRAL No Information MEDICATIONS Medication SIG (Take, Route, Frequency, Duration) Notes Start Date End Date Status predniSONE 5 MG Oral for 30 Ac tive Metoprolol Tartrate 100 MG 1 tablet with food Orally Twice a day Active Vitamin B Complex - Orally Active Calcium 500 MG 1 tablet with meals Orally Twice a day for 30 day(s) Active Multivitamin - 1 tablet Orally Once a day for 30 day(s) Active Losartan Potassium 50 MG Oral for 90 Active Rosuvastatin Calcium 5 MG Oral for 90 Active Levothyroxine Sodium 50 MCG Oral for 90 Active Eliquis 5 MG Oral for 30 Activ e Vitamin D3 50 MCG (1999) TAKE 1 TABLE T DAILY Oral for 90 Active SOCIAL HISTORY Tobacco [...] W/U Status Risk SNOMED Code Notes Problem Encounter for screening for malignant neoplasm of colon (Z12.11) Active confirmed 098481261 Problem Preprocedural examination (Z01.818) Active confirmed 901865559 Problem History of adenomatous polyp of colon (Z86.010) Active confirmed History o f adenomatous polyp of colon (683504334) Problem Current use of usp anticoagulation (Z79.01) Active confirmed Long-term current use of anticoagulant (799205749) Problem Personal history of colonic polyps (Z86.010) Active confirmed History of poly p of colon (situation) (913260021) Problem Diverticulosis of large intestine without perforation or abscess without bleeding (K57.30) Active confirmed Diverticul ar disease of colon (318924310) VITAL SIGNS Blood pressure diastolic 00 mm Hg 06/11/2023 Height 67.5 in 06/11/2023 Blood pressure systolic 00 mm Hg 06/11/2023 Weight 174 lbs 06/11/2023 BMI 26.85 kg/m2 06/11/2023 Encounters Encounter Location Date Provider Diagnosis [facility] Outpatient [address] [place] [phone] 09/11/2023 Gage Lizarraga Colon cancer screeni ng Z12.11 ; Personal history of colonic polyps Z86.010 ; Family history of colon cancer Z80.0 ; Diverticulosis of large intestine without perforation or abscess without bleeding K57.30 and Other hemorrhoids K64.8 [facility] [address] [place] [phone] 06/11/2023 Gage Lizarraga History of adenomato us polyp of colon Z86.010 ; Current use of usp anticoagulation Z79.01 and Encounter for screening for malignant neoplasm of colon Z12.11 [facility] [address] [place] [phone] 09/09/2023 Gage Lizarraga ASSESSMENTS Encounter Date Diagnosis Assessment Notes Treatment Notes Treatment Clinical Notes 09/11/2023 Colon cancer screeni ng (ICD-10 - Z12.11) 09/11/2023 Personal history of colonic polyps (ICD-10 - Z86.010) 06/11/2023 History of adenomato us polyp of colon (ICD-10 - Z86.010) 06/11/2023 Current use of long chain quiller tender anticoagulation (ICD-10 - Z79.01) 09/11/2023 Family history of colon cancer (ICD-10 - Z80.0) 06/11/2023 Encounter for screening for malignant neoplasm of colon (ICD-10 - Z12.11) Stop Eliquis for three days before the colonoscopy and clear that with Dr. Day regarding possible Lovenox injections 09/11/2023 Diverticulosis of large intestine without perforation or abscess without bleeding (ICD-10 - K57.30) 09/11/2023 Other hemorrhoids (ICD-10 - K64.8) PLAN OF TREATMENT Future Test Test Name Order Date COLONOSCOPY 11/13/2016 COLONOSCOPY 06/11/2023 Insurance Providers Payer Name Payer Address Payer Phone Subscriber Number Group Number Insured Name Patient Relationship to Insured Coverage Start Date Coverage End Date MEDICARE OF [place] [address] [place] [address] [id number] SERG GUIDO Self - patient is the insured [facility] [address] [place], [place] [id number] [phone] [id number] SERG GUIDO Self - patient is the insured MEDICAL (GENERAL) HISTORY Medical History History ICD Code Screening colonoscopy 05-27-19 08--no polyps; just diverticulosis and internal hemorrhoids Denies [place],DM,CVA,Lung disease,renal dise ase ITP--treated with prednisone and Rituxan --dx'd in 2014 HTN Pulmonary embolism-Dr. Day--uses Eliqu is Colonoscopy 07/2017 with a small rectal t ubular adenoma Vertebroplasty Surgical History Surgery Date(Month/Year)
[2024-02-17 07:52] LABS: MANUAL DIFF FLAG NO
[2024-02-17 08:02] LABS: Basophils Absolute Auto 0.1 X10*3/uL (0.0-0.2); Basophils Percent Auto 0.6 % (0-2); Eosinophils Absolute Auto 0.1 X10*3/uL (0.0-0.4); Eosinophils Percent Auto 0.6 % (0-4); Hematocrit 36.5 % (37.0-47.0); Hemoglobin 11.5 g/dl (12.0-16.0); Imm Gran Abs Auto 0.03 X10*3/uL (0.00-0.03); Imm Gran Pct Auto 0.4 % (0.0-0.4); Lymphocytes Absolute Auto 1.4 X10*3/uL (1.2-4.9); Lymphocytes Percent Auto 17.4 % (20-40); Mean Corpuscular HGB Conc 31.5 g/dl (31.0-35.0); Mean Corpuscular Hemoglobin 31.9 pg (27.0-33.0); Mean Corpuscular Volume 101.1 fL (80.0-98.0); Monocytes Absolute Auto 0.7 X10*3/uL (0.1-1.2); Monocytes Percent Auto 8.6 % (2-11); Neutrophils Absolute Auto 5.9 x10*3/uL (2.0-8.3); Neutrophils Percent Auto 72.4 % (45-73); Platelet Count 207 X10*3/uL (160-400); Red Blood Count 3.61 X10*6/uL (4.20-5.50); Red Cell Distribution Width 14.2 % (11.0-16.0); White Blood Count 8.2 X10*3/uL (4.8-10.8)
== END 2024-02-17 07:40 | disposition home or self-care (01) ==
LOC: HO.LABR 07:39
PROVIDERS: PCP Internal Medicine Medical Oncology; Visit Provider Internal Medicine Medical Oncology
DX: D69.3 Immune thrombocytopenic purpura (principal)
CPT/HCPCS: 36415; 85025

== ENCOUNTER 2024-03-12 07:24 | Outpatient (REF) | payer MEDICARE, BC, SELFPAY ==
[2024-03-12 07:33] LABS: MANUAL DIFF FLAG NO
[2024-03-12 08:12] LABS: Basophils Percent Auto 0.5 % (0-2); Eosinophils Absolute Auto 0.1 X10*3/uL (0.0-0.4); Hematocrit 37.1 % (37.0-47.0); Hemoglobin 11.8 g/dl (12.0-16.0); Imm Gran Abs Auto 0.02 X10*3/uL (0.00-0.03); Imm Gran Pct Auto 0.3 % (0.0-0.4); Lymphocytes Absolute Auto 1.4 X10*3/uL (1.2-4.9); Lymphocytes Percent Auto 23.2 % (20-40); Mean Corpuscular HGB Conc 31.8 g/dl (31.0-35.0); Mean Corpuscular Hemoglobin 32.3 pg (27.0-33.0); Mean Corpuscular Volume 101.6 fL (80.0-98.0); Mean Platelet Volume 8.9 fL (9.4-12.3); Monocytes Absolute Auto 0.6 X10*3/uL (0.1-1.2); Monocytes Percent Auto 10.9 % (2-11); Neutrophils Absolute Auto 3.7 x10*3/uL (2.0-8.3); Neutrophils Percent Auto 64.1 % (45-73); Platelet Count 201 X10*3/uL (160-400); Red Blood Count 3.65 X10*6/uL (4.20-5.50); Red Cell Distribution Width 14.2 % (11.0-16.0); White Blood Count 5.9 X10*3/uL (4.8-10.8)
== END 2024-03-12 07:25 | disposition home or self-care (01) ==
LOC: HO.LABR 07:24
PROVIDERS: Visit Provider Internal Medicine Medical Oncology
DX: D69.3 Immune thrombocytopenic purpura (principal)
CPT/HCPCS: 36415; 85025

== ENCOUNTER 2024-04-07 07:25 | Outpatient (REF) | payer MEDICARE, BC, SELFPAY ==
--- OUTSIDE RECORDS SUMMARY | 2024-04-07 07:29 | XMS_ITS ---
Author Organization [facility] Address [address] [place] [address] Care Team Providers Care Line Mechanic Name Role Phone Sg Zhong MD Primary Care Provider UnavailGage Brown Unavailable [phone] ALLERGIES Allergen (clinical drug ingredient) Drug/Non Drug [...] History o f adenomatous polyp of colon (760380011) Problem Current use of chcf anticoagulation (Z79.01) Active confirmed Long-term current use of anticoagulant (674707041) VITAL SIGNS BMI 26.85 kg/m2 06/11/2023 Blood pressure systolic 00 mm Hg 06/11/19 24 Blood pressure diastolic 00 mm Hg 024 Height 67.5 in 06/11/2023 Weight 174 lbs 06/11/2023 Encounters Encounter Location Date Provider Diagnosis [facility] [address] [place] [address] 06/11/2023 Gage Lizarraga History of adenomato us polyp of colon Z86.010 ; Current use of chcf anticoagulation Z79.01 and Encounter for screening for malignant neoplasm of colon Z12.11 ASSESSMENTS Encounter Date Diagnosis Assessment Notes Treatment Notes Treatment Clinical Notes 06/11/2023 History of adenomato us polyp of colon (ICD-10 - Z86.010) 06/11/2023 Current use of terminal carman anticoagulation (ICD-10 - Z79.01) 06/11/2023 Encounter for [...]
--- OUTSIDE RECORDS SUMMARY | 2024-04-07 07:29 | XMS_ITS | Clinical Summary ---
Author Organization [facility] Address [address] [place] [address] Phone Care Team Providers Care Site Medical Director Name Role Phone Sg Zhong MD Primary Care Provider [phone] Encounters Date Type Department Care Team Description 01/06/2024 7:08 AM EST - 01/06/2024 11:59 PM EST Hospital [facility] [address] [phone] Encounter for screening mammogram for breast cancer Discharge Disposition: Home or Self Care from Last 3 Months Surgical History Surgery Date Site/Laterality Comments BREAST CYST ASPIRATION 02/18/2013 - 02/17/2014 Right bx clip placed Social History Tobacco Use Types Packs/Day Years Used Date Smoking Tobacco: Never Assessed Comments No Sex and Gender Information Value Date Recorded Sex Assigned at Not on file Legal Sex Female 1:22 AM EST Gender Identity Not on file Sexual Orientation Not on file Obstetrics History Last Filed Vital Signs Vital Sign Reading Time Taken Comments Blood Pressure - - Pulse - - Temperature - - Respiratory Rate - - Oxygen Saturation - - Inhaled Oxygen Concentration - - Weight 77.1 kg (170 lb) 01/06/2024 7:15 AM EST Height 170.2 cm (5' 7 ) 01/06/2024 7:15 AM EST Body Mass Index 26.63 01/06/2024 7:15 AM EST Plan of Treatment Health Maintenance Due Date Last Done Comments DTaP,Tdap,and Td Vaccines (1 - Tdap) 11/05/1971 Pneumococcal Vaccine: 50+ Years (1 of 1 - PCV) 2002 Zoster Vaccines (1 of 2) 2002 Colorectal Cancer Screening: Colonoscopy 01/21/2022 Depression Screening 01/21/2022 Falls Risk Assessment 01/21/2022 Hepatitis C Screening 01/21/2022 Medicare Annual Wellness Visit 01/21/2022 Social Influencers of Health Screening 01/21/2022 COVID-19 Vaccine ( season) 2023 Influenza Vaccine (#1) 2023 Breast Cancer Screening 01/05/2026 01/06/20 24, 12/21/2022, 07/04/2021, Additional history exists RSV Immunization Patients 60+ Years Old (1 - 1-dose 75+ series) 11/05/2027 Osteoporosis Screening (Bone Density Screening) 08/22/2032 08/22/2022, 07/04/2021 HIB Vaccines Aged Out No longer eligi ble based on patient's age to complete this topic HPV Vaccines Aged Out No longer eligi ble based on patient's age to complete this topic Hepatitis A Vaccines Aged Out No long er eligible based on patient's age to complete this topic Hepatitis B Vaccines Aged Out No long er eligible based on patient's age to complete this topic IPV Vaccines Aged Out No longer eligi ble based on patient's age to complete this topic MMR Vaccines Aged Out No longer eligi ble based on patient's age to complete this topic Meningococcal ACWY Vaccine Aged Out N o longer eligible based on patient's age to complete this topic Meningococcal B Vacine Aged Out No lo nger eligible based on patient's age to complete this topic RSV Immunization Patients Under 20 months Aged Out No longer eligible based on patient's age to complete this topic Varicella Vaccines Aged Out No longer eligible based on patient's age to complete this topic Procedures Procedure Name Priority Date/Time Associated Diagnosis Comments MG MAMMO DIGITAL SCREENING W BOB BILAT Routine 01/06/2024 7:28 AM EST Encounter for screening mammogram for breast cancer TEJAL DEXA AXIAL SKELETON Routine 08/22/2022 11:35 AM EDT Other specified disorders of bone density and structure, other site from Last 3 Months or Most Recently Relevant to Health Maintenance Results * MG Mammo Digital Screening w Bob bilat (01/06/2024 7:28 AM EST) Anatomical Region Laterality Modality Breast Bilateral Mammography 01/06/2024 8:14 AM EST Impressions 01/06/2024 8:15 AM EST Stable mammographic appearance of the breasts. No evidence of malignancy is seen. A negative mammogram in the presence of a clinically suspicious palpable abnormality does not preclude the possibility of malignancy or alter the indications for biopsy. BI-RADS CATEGORY: 2 - BENIGN RECOMMENDATION: Screening bilateral mammogram is recommended in 1 year. Mammo Location: [facility], [address] [place] [address], [address], . -------- FINAL REPORT -------- Dictated By: Kaity Jackson Dictated Date: 01/06/2024 08:14 ET Assigned Physician: Kaity Jackson Reviewed and Electronically Signed By: Kaity Jackson Signed Date: 01/06/2024 08:15 ET Workstation ID: [id number] Transcribed By: Self Edit Transcribed Date: 01/06/2024 08:14 ET Narrative 01/06/2024 8:15 AM EST HISTORY: Screening. Right breast biopsy in 2013, pathology benign. COMPARISON: 12/25/22, 12/21/22, 07/04/21, 09/21/19, 10/04/17 ?? TECHNIQUE: Bilateral digital breast tomosynthesis was performed in the CC and MLO projections. Computer aided detection with [employer] 3D 3.1 was employed. BREAST DENSITY: B - There are scattered areas of fibroglandular density. FINDINGS: No suspicious masses, grouped microcalcifications, or areas of architectural distortion are seen. A biopsy marker is again seen in the upper inner right breast. Few benign calcifications are scattered bilaterally, unchanged. Vascular calcification is present. The skin is unremarkable. Procedure Note Kaity Jackson MD - 01/06/2024 HISTORY: Screening. Right breast biopsy in 2013, pathology benign. COMPARISON: 12/25/22, 12/21/22, 07/04/21, 09/21/19, 10/04/17 TECHNIQUE: Bilateral digital breast tomosynthesis was performed in the CCand MLO projections. Computer aided detection with [employer] 3D 3.1was employed. BREAST DENSITY: B - There are scattered areas of fibroglandular density. FINDINGS: No suspicious masses, grouped microcalcifications, or areas ofarchitectural distortion are seen. A biopsy marker is again seen in theupper inner right breast. Few benign calcifications are scatteredbilaterally, unchanged. Vascular calcification is present. The skin is unremarkable. IMPRESSION: Stable mammographic appearance of the breasts. No evidence of malignancyis seen. A negative mammogram in the presence of a clinically suspicious palpableabnormality does not preclude the possibility of malignancy or alter theindications for biopsy. BI-RADS CATEGORY: 2 - BENIGN RECOMMENDATION: Screening bilateral mammogram is recommended in 1 year. Mammo Location: [facility], [address] [place] [address], [address], . -------- FINAL REPORT -------- Dictated By: Kaity Jackson Dictated Date: 01/06/2024 08:14 ET Assigned Physician: Kaity Jackson Reviewed and Electronically Signed By: Kaity Jackson Signed Date: 01/06/2024 08:15 ET Workstation ID: [id number] Transcribed By: Self Edit Transcribed Date: 01/06/2024 08:14 ET us Sg Zhong MD IMG BI PROCEDURES Final Result * TEJAL DEXA AXIAL SKELETON (08/22/2022 11:35 AM EDT) Anatomical Region Laterality Modality Mammography 08/22/2022 9:55 AM EDT Narrative 08/22/2022 11:35 AM EDT [facility] Diagnostic Imaging Department [address] [place] [address] [phone] Patient: ??ROSEANN GUIDO ?/Age/Sex: 1950 - - F Unit#: ??[id number] ? Location/Status: ??SPDIMAM/REG CLI ? Mnemonic/Ordering Site: ??MAMDEXAAX/SPMAM Ordering Physician: ??ELLEN DYA MD Tejal Dexa Axial Skeleton - 08/22/221042 Report Status:Signed HISTORY: ??The patient is a 71-year-old postmenopausal female on chronic glucocorticoid therapy, with clinical concern for metabolic bone disease. FINDINGS: ??Dual energy x-ray absorptiometry of the lumbar spine and femurs is performed. The mean bone mineral density at L1-L4 is 1.107 gm/cm2 which is 94% of that of young normals and 103% of that of age matched controls. This yields a T-score of -0.6 and a Z-score of 0.3 and there is therefore no evidence of osteoporosis or osteopenia here. The mean bone mineral density of the femurs bilaterally is 0.903 gm/cm2 which is 90% of that of young normals and 101% of that of age matched controls. ??This yields a T-score of -0.8 and a Z-score of 0.1 and there is therefore no evidence of osteoporosis or osteopenia here. ??However, the T-score of the right femoral neck is -1.4 and that of the left femoral neck is -1.4 which is diagnostic of osteopenia. IMPRESSION: 1. Osteopenia. ??There has been a decrease of 4.2% in bone mineral density in the lumbar spine since the prior examination of 07/04/2021. ??There has been an increase of 1.0% in bone mineral density in the right femur and a decrease of 1.8% in bone mineral density in the left femur. 2. FRAX analysis yields a 10-year probability of major osteoporotic fracture of 35.0% and a 10-year probability of hip fracture of 6.9%. Code 74847 Dictating Physician: ??RODNEY IRELAND MD Electronically Signed by: ??RODNEY IRELAND MD Dic Date/Time: ??08/22/22 1134 Sign date/Time: ??08/22/22 1135 Procedure Note Rodney Ireland MD - 03/26/2023 [facility] Diagnostic Imaging Department [address] [place] [address] Patient: MIKKIROSEANNALIDA Estes./Age/Sex: 1950 - 71 - F Unit#: [id number] Location/Status: [facility] Mnemonic[facility] Ordering Physician: ELLEN DAY MD Tejal Dexa Axial Skeleton - 08/22/22 - 3 Report Status:Signed HISTORY: The patient is a 71-year-old postmenopausal female on chronic glucocorticoid therapy, with clinical concern for metabolic bonedisease. FINDINGS: Dual energy x-ray absorptiometry of the lumbar spine and femursis performed. The mean bone mineral density at L1-L4 is 1.107 gm/cm2 which is94% of that of young normals and 103% of that of age matched controls. Thisyields a T-score of -0.6 and a Z-score of 0.3 and there is therefore no evidenceof osteoporosis or osteopenia here. The mean bone mineral density of the femurs bilaterally is 0.903 gm/tm5vrybc is 90% of that of young normals and 101% of that of age matched controls.This yields a T-score of -0.8 and a Z-score of 0.1 and there is therefore noevidence of osteoporosis or osteopenia here. However, the T-score of the rightfemoral neck is -1.4 and that of the left femoral neck is -1.4 which is diagnosticof osteopenia. IMPRESSION: 1. Osteopenia. There has been a decrease of 4.2% in bone mineral densityin the lumbar spine since the prior examination of 07/04/2021. There has beenan increase of 1.0% in bone mineral density in the right femur and a decreaseof 1.8% in bone mineral density in the left femur. 2. FRAX analysis yields a 10-year probability of major osteoporoticfracture of 35.0% and a 10-year probability of hip fracture of 6.9%. Code 18500 Dictating Physician: RODNEY IRELAND MD Electronically Signed by: RODNEY IRELAND MD Dic Date/Time: 08/22/22 1134 Sign date/Time: 08/22/22 1135 Ellen Day MD IMG BI PROCEDURES Final Result from Last 3 Months or Most Recently Relevant to [place] [id number] MEDICARE [facility] Care Teams Site Medical Director Relationship Specialty Start Date End Date Sg Zhong MD [address] [facility] [place] PCP - General Internal Medicine 12/11/23
--- OUTSIDE RECORDS SUMMARY | 2024-04-07 07:29 | XMS_ITS ---
Author Organization [facility] Address [address] [place] [address] Care Team Providers Care Carbide Tool Die Maker Name Role Phone Sg Zhong MD Primary Care Provider Unavailab Gage Castellanos Unavailable [phone] REASON FOR VISIT has covid Encounters Encounter Location Date Provider Diagnosis [facility] [address] [place] [address] 09/09/2023 Gage Lizarraga PLAN OF TREATMENT No Information
--- OUTSIDE RECORDS SUMMARY | 2024-04-07 07:29 | XMS_ITS ---
Author Organization Gage Day III, MD Address [address] [place] [address] [place] [address] Care Team Providers Care Bending Machine Set Up Operator Name Role Phone Sg Zhong MD Primary Care Provider Unavailab Gage Rainey Unavailable [phone] Allergies Allergen (clinical drug ingredient) Drug/Non Drug Allergy documented on EMR Reaction Allergy Type Onset Date Status sulfacetamide Sulfacetamide Unknown Drug Allergy Active Penicillin Unknown Drug Allergy Active REASON FOR VISIT Idiopathic thrombocytopenic purpura, Thrombophilia, History of pulmonary embolism, Lupus anticoagulant Medications Medication SIG (Take, Route, Frequency, Duration) [...] FOOD FOR 30 DAYS Active Social History Sex Assigned At : Social History Observation Description Sex Assigned At Female Vital Signs Height 67.5 in 02/21/2024 Weight 168 lbs 02/21/2024 BMI 25.92 kg/m2 02/21/2024 Encounters Encounter Location Date Provider Diagnosis Gage Day III, MD [address] [place] [address] [place] [address] 02/21/2024 Gage Day ITP (idiopathic thrombocytopenic purpura) D69.3 ; Essential hypertension I10 ; Overweight E66.3 ; Lupus anticoagulant syndrome D68.62 and Acute pulmonary embolism without acute cor pulmonale, unspecified pulmonary embolism type I26.99 Assessments Encounter Date Diagnosis (ICD Code) Assessment Notes Treat ment Notes Treatment Clinical Notes 02/21/2024 ITP (idiopathic thrombocytopenic purpura) (ICD-10 - D69.3) Her current platelet count is 207,000. She is stable at this time and no change in her therapy was needed. She will take a 3 day cycle of prednisone 5 mg, 5 mg, 2.5 mg. Her next visit will be in 4 weeks after the holidays after CBC. 02/21/2024 Essential hypertensi on (ICD-10 - I10) She is managed by primary care and says her blood pressure has been in the normal range. 02/21/2024 Overweight (ICD-10 - E66.3) We have discussed lifestyle modification in her diet and nutrition today. She will try to lose weight and 1/2 pound per week. 02/21/2024 Lupus anticoagulant syndrome (ICD-10 - D68.62) She has had no symptoms of blood clots or emboli or bleeding.She remains anticoagulated. 02/21/2024 Acute pulmonary embolism without acute cor pulmonale, [...] 30 DAYS Next Appt Details Follow Up: 3 Weeks, In 3 marc wv, Reason: Telehealth, Routine follow-up Provider Name:Gage Day, 04/07/2024 11:45:00 AM, [address] [place] [address] [address], [place], [address], Progress Notes * Melia GUIDO:1950 (73 yo F)Acc No.[id number]:02/21/2024 Patient:?Roseann GUIDO Provider:?Gage Day MD :1950???Age:73 Y???Sex:Female D ate:02/21/2024 Address:[address] [place] [address], [id number] Pcp:Sg Zhong MD Subjective: * Chief Complaints: * ???Idiopathic thrombocytopen ic purpuraThrombophiliaHistory of pulmonary embolismLupus anticoagulant * HPI: ???:?Telehealth?Location of provider rendering services:?{...} [address] [facility] [address] ?Location of patient:?address listed in demographics for today's visit ?Patient identification confirmed using:?Name, ?Telehealth method:?Telephone only. Patient not visible to care provider. ?Consent:?Patient verbally consented to treatment, Patient verbally consented to billing insurance company, Patient informed of any privacy concerns related to method of visit ?Total time spent with patient (mins)?15 ? The patient, a 73-year-old female, has been under the care of the doctor for an unspecified condition. She has been maintaining a steady platelet count of 207,000, indicating that her current treatment plan is effective. She also mentioned a recent follow-up with Doctor Tejada for her thyroid, which had been slightly elevated. However, after a few weeks off to retest, her thyroid levels returned to the normal range. No changes were made to her treatment plan during this visit. She is due for another follow-up with Doctor Tejada in February. * ROS:?General/Constitutional:?pain?only normal aches and pains.?Chills?denies.?Fatigue?admits.?Fever?denies.?ENT:?Decreased hearing?denies.?Respiratory:?Cough?denies.?Cardiovascular:?Chest pain with exertion?denies.?Dyspnea on exertion?denies.?Shortness of breath?denies.?Gastrointestinal:?Constipation?occasional.?Decreased appetite?denies.?Diarrhea?denies.?Heartburn?denies.?Nausea?denies.?Rectal bleeding?denies.?Vomiting?denies.?Hematology:?bruising?denies.?petechiae?denies.?Swollen glands?none have been noted.?Genitourinary:?Frequent urination?a small amount.?Musculoskeletal:?Muscle aches?denies.?Painful joints?denies.?Sciatica?denies.?Weakness?denies.?Skin:?Itching?denies.?Rash?denies.?Skin lesion(s)?denies.?Neurologic:?Difficulty speaking?denies.?Dizziness?denies.?Headache?denies.?Low back pain?denies.?Psychiatric:?Depressed mood?denies.? * Medical History:? * Surgical History:?aspiration cyst right breast, benign apocrine cyst 12/2013negative colonoscopy 2008bone marrow biopsy and aspirate. Iliac crest 05/2014Colonoscopy, [facility], Dr. Morel, sessile serrated polypoid adenoma with low-grade dysplasia 12/2017No history * Hospitalization/Major Diagno stic Procedure:?No history * Family History:?Father: dece ased 81 yrs, diagnosed with DM, HTN.?Mother: 76 yrs.? Her father of head and neck cancer. [...] reviewed and reconciled with the patient * Allergies:?PenicillinIndio castaneda[Allergies Verified] Objective: * Vitals:?Ht: 67.5, Wt:168, BM I:25.92, Ht-cm: 171.45, Wt-k.2. Assessment: * Assessment: 1.?ITP (idiopathic thrombocy topenic purpura) - D69.3 (Primary)???Notes :Her current platelet count is 207,000. She is stable at this time and no change in her therapy was needed. She will take a 3 day cycle of prednisone 5 mg, 5 mg, 2.5 mg. Her next visit will be in 4 weeks after the holidays after CBC.???2.?Essential hypertension - I10???Notes :She is managed by primary care and says her blood pressure has been in the normal range.???3.?Overweight - E66.3???Notes :We have discussed lifestyle modification in her diet and nutrition today. She will try to lose weight and 1/2 pound per week.???4.?Lupus anticoagulant syndrome - D68.62???Notes :She has had [...] MOUTH TWICE A DAY DIRECTED.?? * Procedure Codes:?62733 PHONE E/M BY TAYLOR 11-20 MIN * Preventive Medicine:? ??Counseling:?Care goal follow-up plan:?Counseling for abnormal BMI given?Yes ?Above Normal BMI Follow-up?Dietary management education, guidance, and counseling, Dietary needs education * Follow Up:?3 Weeks, In 3 wee ks (Reason: Telehealth, Routine follow-up) * Images: * Sign off status: Completed true * Provider:?Gage Day MD Date:?04/2024 Generated for Brendan lantigua/Chacho/eTransmitting on:?04/07/2024 07:29 AM EST History and Physical Notes * HPI (History of Present Illness) Category Sub-Category Detail Notes Telehealth Location of [facility] rendering services:: {...} [address] [place] [address] Location of patient:: address listed in demographics [...]
--- OUTSIDE RECORDS SUMMARY | 2024-04-07 07:29 | XMS_ITS ---
Author Organization Gage Day III, MD Address [address] [place] [address] [place] [address] Care Team Providers Care Character Impersonator Name Role Phone Sg Zhong MD Primary Care Provider Unavailab Gage Rainey Unavailable [phone] Allergies Allergen (clinical drug ingredient) Drug/Non Drug Allergy documented on EMR Reaction Allergy Type Onset Date Status sulfacetamide Sulfacetamide Unknown Drug Allergy Active Penicillin Unknown Drug Allergy Active REASON FOR VISIT telehealth Medications Medication SIG (Take, Route, Frequency, Duration) Notes Start Date End Date Status predniSONE 1 MG TAKE 5 TABLETS BY MO UTH ONCE DAILY WITH FOOD FOR 30 DAYS Active Metoprolol Succinate ER 75 mg 1 tablet Orally Once a day Active Eliquis 5 MG TAKE 1 TABLET BY CHRISTAL TWICE A DAY DIRECTED Active Levothyroxine Sodium 50 MCG 1 capsule Or ally Once a day Active Rosuvastatin Calcium 5 MG TAKE 1 TABLET BY MOUTH AT BEDTIME Oral Active Social History Sex Assigned At : Social History Observation Description Sex Assigned At Female Vital Signs Height 67.5 in 04/07/2024 Weight 168 lbs 04/07/2024 BMI 25.92 kg/m2 04/07/2024 Encounters Encounter Location Date Provider Diagnosis Gage Day III, MD [address] [place] [address] [place] [address] 04/07/2024 Gage Day ITP (idiopathic thrombocytopenic purpura) D69.3 Assessments Encounter Date Diagnosis (ICD Code) Assessment Notes Treat ment Notes Treatment Clinical Notes 04/07/2024 ITP (idiopathic thrombocytopenic purpura) (ICD-10 - D69.3) Her current platelet count is 207,000. She is stable at this time and no change in her therapy was needed. She will take a 3 day cycle of prednisone 5 mg, 5 mg, 2.5 mg. Her next visit will be in 4 weeks after the holidays after CBC. Plan Of Treatment Medication Medication Name Sig Start Date Stop Date Notes predniSONE 1 MG TAKE 5 TABLETS BY MO UTH ONCE DAILY WITH FOOD FOR 30 DAYS Metoprolol Succinate ER 75 mg 1 tablet Orally Once a day Eliquis 5 MG TAKE 1 TABLET BY CHRISTAL TH TWICE A DAY DIRECTED Levothyroxine Sodium 50 MCG 1 capsule Orally Once a day Rosuvastatin Calcium 5 MG TAKE 1 TABLET BY MOUTH AT BEDTIME Oral Next Appt Details Provider Name:Gage Day, 04/07/2024 11:45:00 AM, [address] [place] [address], [facility], [place], [address], Progress Notes * MIKKIZakiaOB:1950 (73 yo F)Acc No.[id number]:04/07/2024 Patient:?Jennifer GUIDOan Provider:?Gage Day MD :1950???Age:73 Y???Sex:Female D ate:04/07/2024 Address:[address] [place] [address] [address] [phone] Pcp:Sg Zhong MD Subjective: * Chief Complaints: * ???1. Telehealth. * HPI: ???:?Telehealth?Location of provider rendering services:?{...} [address] [place] [address] [address] [facility] [address] ?Location of patient:?address listed in demographics for [...] hearing?denies.?Respiratory:?Cough?denies.?Cardiovascular:?Chest pain with exertion?denies.?Dyspnea on exertion?denies.?Shortness of breath?denies.?Gastrointestinal:?Constipation?denies.?Decreased appetite?denies.?Diarrhea?denies.?Heartburn?denies.?Nausea?denies.?Rectal bleeding?denies.?Vomiting?denies.?Hematology:?bruising?denies.?petechiae?denies.?Swollen glands?none have been noted.?Genitourinary:?Frequent urination?denies.?Musculoskeletal:?Muscle aches?denies.?Painful joints?denies.?Sciatica?denies.?Weakness?denies.?Skin:?Itching?denies.?Rash?denies.?Skin lesion(s)?denies.?Neurologic:?Difficulty speaking?denies.?Dizziness?denies.?Headache?denies.?Low back pain?denies.?Psychiatric:?Depressed mood?denies.? * Medical History:?HTN (hypert ension), Benign cyst right breast 2013, Dental extraction without bleeding age 33, Shingles 2012, Sulfa allergy, Penicillin allergy, Lupus anticoagulant, November 2019, Prolonged PTT due to inhibitor November 2019, Multiple pulmonary emboli November 2019, ITP, Compression fracture T11 July 2022. * Surgical History:?aspiration cyst right breast, benign apocrine cyst 12/2013, negative colonoscopy 2007, bone marrow biopsy and aspirate. Iliac crest 05/2014, Colonoscopy, [facility], Dr. 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 * Hospitalization/Major Diagno stic Procedure:?No history . * Family History:?Father: dece ased 81 yrs, diagnosed with DM, HTN.?Mother: 76 yrs.? Her father of head and neck cancer. Her mother of colon cancer. She has no children. There is no family history of mental illness or substance abuse. * Medications:?Taking predniSO NE 1 MG Tablet TAKE 5 TABLETS BY MOUTH ONCE DAILY WITH FOOD FOR 30 DAYS , Taking Eliquis 5 MG Tablet TAKE 1 TABLET BY MOUTH TWICE A DAY DIRECTED , Taking Metoprolol Succinate ER 75 mg Tablet Extended Release 24 Hour 1 tablet Orally Once a day , Taking Levothyroxine Sodium 50 MCG Tablet 1 capsule Orally Once a day , Taking Rosuvastatin Calcium 5 MG Tablet TAKE 1 TABLET BY MOUTH AT BEDTIME Oral , Medication List reviewed and reconciled with the patient * Allergies:?Penicillin, Sulfa cetamide. Objective: * Vitals:?Ht: 67.5, Wt:168, BM I:25.92, Ht-cm: 171.45, Wt-k.2. Assessment: * Assessment: 1.?ITP (idiopathic thrombocy topenic purpura) - D69.3???Notes :Her current platelet count is 207,000. She is stable at this time and no change in her therapy was needed. She will take a 3 day cycle of prednisone 5 mg, 5 mg, 2.5 mg. Her next visit will be in 4 weeks after the holidays after CBC.??? Plan: * Treatment: 2.?Others? Continue predniSONE Tablet, 1 MG, TAKE 5 TABLETS BY MOUTH ONCE DAILY WITH FOOD FOR 30 DAYS;?Continue Eliquis Tablet, 5 MG, TAKE 1 TABLET BY MOUTH TWICE A DAY DIRECTED.?? * Images: * The named appointment provid er may or may not be the originator of this progress note, and it is not deemed complete until electronically signed by the appointment provider. Sign off status: Pending * Provider:?Gage Day MD Date:?03/21 Generated for Brendan lantigua/Chacho/Nicole on:?04/07/2024 07:29 AM EST History and Physical Notes * HPI (History of Present Illness) Category Sub-Category Detail Notes [facility] {...} [address] [facility] [address] [place], [place] [id number] Location of patient:: address listed in demographics [...]
--- OUTSIDE RECORDS SUMMARY | 2024-04-07 07:30 | XMS_ITS ---
Author Organization [facility] Address [address] [place] [address] Care Team Providers Care Golf Course Superintendent Name Role Phone Sg Zhong MD Primary Care Provider Unavailab Gage Castellanos Unavailable [phone] REASON FOR VISIT screening,hx polyps PROBLEMS Problem Type ICD Code Onset Dates Problem Status W/U Status Risk SNOMED Code Notes Problem Personal history of colonic polyps (Z86.010) Active confirmed History of polyp of colon (situation) (119459994) Problem Diverticulosis of large intestine without perforation or abscess without bleeding (K57.30) Active confirmed Diverticul ar disease of colon (147208949) Encounters Encounter Location Date Provider [place] [facility] [place] [address] [place], [place] [id number] 09/11/2023 Gage Lizarraga Colon cancer scree javi [...]
--- OUTSIDE RECORDS SUMMARY | 2024-04-07 07:30 | XMS_ITS | Patient Health Record ---
Author Organization [facility] Address [address] [place] [address] Care Team Providers Care Sign Builder Supervisor Name Role Phone Sg Zhong MD Primary Care Provider UnavailGage Brown Unavailable [phone] ALLERGIES Allergen (clinical drug ingredient) Drug/Non Drug [...] malignant neoplasm of colon (Z12.11) Active confirmed 338527070 Problem Preprocedural examination (Z01.818) Active confirmed 147705934 Problem History of adenomatous polyp of colon (Z86.010) Active confirmed History o f adenomatous polyp of colon (036251193) Problem Current use of [facility] antico[facility] (Z79.01) Active confirmed Long-term current use of anticoagulant (711466126) Problem Personal history of colonic polyps (Z86.010) Active confirmed History of poly p of colon (situation) (914909547) Problem Diverticulosis of large intestine without perforation or abscess without bleeding (K57.30) Active confirmed Diverticul ar disease of colon (081257346) VITAL SIGNS Blood pressure diastolic 00 mm Hg 06/11/2023 Height 67.5 in 06/11/2023 Blood pressure systolic 00 mm Hg 06/11/2023 Weight 174 lbs 06/11/2023 BMI 26.85 kg/m2 06/11/2023 Encounters Encounter Location Date Provider Diagnosis [facility] [address] [place] [phone] 09/11/2023 Gage Lizarraga Colon cancer screeni ng Z12.11 ; Personal history of colonic polyps Z86.010 ; Family history of colon cancer Z80.0 ; Diverticulosis of large intestine without perforation or abscess without bleeding K57.30 and Other hemorrhoids K64.8 [facility] [address] [place] [phone] 06/11/2023 Gage Lizarraga History of adenomato us polyp of colon Z86.010 ; Current use of [facility] anticoagulation Z79.01 and Encounter for screening for malignant neoplasm of colon Z12.11 [facility] [address] [place] [phone] 09/09/2023 Gage Lizarraga ASSESSMENTS Encounter Date Diagnosis Assessment Notes Treatment Notes Treatment Clinical Notes 09/11/2023 Colon cancer screeni ng (ICD-10 - Z12.11) 09/11/2023 Personal history of colonic polyps (ICD-10 - Z86.010) 06/11/2023 History of adenomato us polyp of colon (ICD-10 - Z86.010) 06/11/2023 Current use of technician terminal and repeater anticoagulation (ICD-10 - Z79.01) 09/11/2023 Family history [...] Date MEDICARE OF [place] [address] [facility] [address] [id number] SERG GUIDO Self - patient is the insured [facility] [address] [place], [place] [id number] SERG GUIDO Self - patient is the insured MEDICAL (GENERAL) HISTORY Medical History History ICD Code Screening colonoscopy 05-27-19 08--no polyps; just diverticulosis and internal hemorrhoids Denies CT,DM,CVA,Lung disease,renal dise ase ITP--treated with prednisone and Rituxan --dx'd in 2014 HTN Pulmonary embolism-Dr. Day--uses Eliqu is Colonoscopy 07/2017 with a small rectal t ubular adenoma Vertebroplasty Surgical History Surgery Date(Month/Year)
[2024-04-07 07:44] LABS: MANUAL DIFF FLAG NO
[2024-04-07 08:14] LABS: Basophils Percent Auto 0.6 % (0-2); Eosinophils Absolute Auto 0.1 X10*3/uL (0.0-0.4); Eosinophils Percent Auto 0.9 % (0-4); Hematocrit 37.6 % (37.0-47.0); Imm Gran Abs Auto 0.02 X10*3/uL (0.00-0.03); Imm Gran Pct Auto 0.3 % (0.0-0.4); Lymphocytes Absolute Auto 1.4 X10*3/uL (1.2-4.9); Lymphocytes Percent Auto 21.5 % (20-40); Mean Corpuscular HGB Conc 31.9 g/dl (31.0-35.0); Mean Corpuscular Hemoglobin 32.3 pg (27.0-33.0); Mean Corpuscular Volume 101.3 fL (80.0-98.0); Mean Platelet Volume 8.7 fL (9.4-12.3); Monocytes Absolute Auto 0.6 X10*3/uL (0.1-1.2); Monocytes Percent Auto 9.7 % (2-11); Neutrophils Absolute Auto 4.3 x10*3/uL (2.0-8.3); Platelet Count 217 X10*3/uL (160-400); Red Blood Count 3.71 X10*6/uL (4.20-5.50); Red Cell Distribution Width 14.5 % (11.0-16.0); White Blood Count 6.4 X10*3/uL (4.8-10.8)
== END 2024-04-07 07:26 | disposition home or self-care (01) ==
LOC: HO.LABR 07:25
PROVIDERS: PCP Internal Medicine Medical Oncology; Visit Provider Internal Medicine Medical Oncology
DX: D69.3 Immune thrombocytopenic purpura (principal)
CPT/HCPCS: 36415; 85025

== ENCOUNTER 2024-05-01 07:51 | Outpatient (REF) | payer MEDICARE, BC, SELFPAY ==
--- OUTSIDE RECORDS SUMMARY | 2024-05-01 07:53 | XMS_ITS ---
Author Organization Gage Day III, MD Address [address] [place] [address] [place] [address] Care Team Providers Care Program Eligibility Specialist Name Role Phone Sg Zhong MD Primary Care Provider Unavailab Gage Rainey Unavailable [phone] REASON FOR VISIT Idiopathic thrombocytopenic purpura, Thrombophilia, Lupus anticoagulant, Obesity, History of pulmonary embolism Medications Medication SIG (Take, Route, Frequency, Duration) [...] 1 MG TAKE 5 TABLETS BY [facility] ONCE DAILY WITH FOOD FOR 30 DAYS Active Social History Sex Assigned At : Social History Observation Description Sex Assigned At Female Vital Signs Height 67.5 in 03/13/2024 Weight 168 lbs 03/13/2024 BMI 25.92 kg/m2 03/13/2024 Encounters Encounter Location Date Provider Diagnosis Gage Day III, MD [address] [place] [address] [place] [address] 03/13/2024 Gage Day ITP (idiopathic thrombocytopenic purpura) D69.3 ; Essential hypertension I10 ; Acute pulmonary embolism without acute cor pulmonale, unspecified pulmonary embolism type I26.99 ; Lupus anticoagulant syndrome D68.62 ; Anticoagulated Z79.01 and Overweight (BMI 25.0-29.9) E66.3 Assessments Encounter Date Diagnosis (ICD Code) Assessment Notes Treat ment Notes Treatment Clinical Notes 03/13/2024 ITP (idiopathic thrombocytopenic purpura) (ICD-10 - D69.3) Her current platelet count is 207,000. She is stable at this time and no change in her therapy was needed. She will take a 3 day cycle of prednisone 5 mg, 5 mg, 2.5 mg. Her next visit will be in 4 weeks after the holidays after CBC. 03/13/2024 Essential hypertensi on (ICD-10 - I10) She is managed by primary care and says her blood pressure has been in the normal range. 03/13/2024 Acute pulmonary embolism without acute cor pulmonale, unspecified pulmonary embolism type (ICD-10 - I26.99) She has had no bleeding. She continues on her current therapy. 03/13/2024 Lupus anticoagulant syndrome (ICD-10 - D68.62) She has had no symptoms of blood clots or emboli or bleeding.She remains anticoagulated. 03/13/2024 Anticoagulated (ICD- 10 - Z79.01) She was continued on current therapy. No change was made. 03/13/2024 Overweight (BMI 25.0-29.9) (ICD-10 - E66.3) She [...] Appt Details Follow Up: 3 Weeks, Reason: TV Provider Name:Gage Day, 05/01/2024 11:30:00 AM, [address] [place] [address] [place], [place], [id number], Progress Notes * Melia GUIDO:1950 (73 yo F)Acc No.[id number]:03/13/2024 Patient:?Roseann GUIDO Provider:?Gage Day MD :1950???Age:73 Y???Sex:Female D ate:03/13/2024 Address:[address] [place], [place] [id number] Pcp:Sg Zhong MD Subjective: * Chief Complaints: * ???Idiopathic thrombocytopen ic purpuraThrombophiliaLupus anticoagulantObesityHistory of pulmonary embolism * HPI: ???:?She has a CBC and a telehealth visit every 3 weeks to manage her thrombocytopenia.? Her platelet count now is in the normal range.? Her current dose of prednisone is 5-5-2.5 mg daily.? She was continued on this.? Follow-up in 4 weeks was arranged.? She has had no symptoms of recurrent pulmonary embolism or clotting or bleeding.? She is compliant with her medication. ?Telehealth?Location of provider rendering services:?{...} [address] [facility] [address] ?Location of patient:?address listed in demographics for [...] pain with exertion?denies.?Dyspnea on exertion?denies.?Shortness of breath?denies.?Gastrointestinal:?Constipation?denies.?Decreased appetite?denies.?Diarrhea?denies.?Heartburn?occasional.?Nausea?occasional.?Recta l bleeding?denies.?Vomiting?denies.?Hematology:?bruising?denies.?petechiae?denies.?Swollen glands?none have been noted.?Genitourinary:?Frequent urination?denies.?Musculoskeletal:?Muscle aches?denies.?Painful joints?denies.?Sciatica?denies.?Weakness?denies.?Skin:?Itching?denies.?Rash?denies.?Skin lesion(s)?denies.?Neurologic:?Difficulty speaking?denies.?Dizziness?denies.?Headache?denies.?Low back pain?denies.?Psychiatric:?Depressed mood?denies.? * Medical History:? * Surgical History:?aspiration cyst right breast, benign apocrine cyst 12/2013negative colonoscopy 2008bone marrow biopsy and aspirate. Iliac crest 05/2014Colonoscopy, [facility] [place], Dr. Morel, sessile serrated polypoid adenoma with low-grade dysplasia 12/2017No history * Hospitalization/Major Diagno stic Procedure:?No history * Family History:?Father: dece ased 81 yrs, diagnosed with HTN, DM.?Mother: 76 yrs.? Her father of head and [...] List reviewed and reconciled with the patient Objective: * Vitals:?Ht: 67.5, Wt:168, BM I:25.92, Ht-cm: 171.45, Wt-k.2. * ???Past Orders: Lab:Complete Blood Count Aut o Diff * Collection Date 02/17/2024 01/21/2024 12/25/2023 Collection Time 07:50 AM 07:39 AM 08:01 AM Order Date 02/17/2024 01/21/2024 12/25/2023 White Blood Count 8.2 (Ref Range: 4.8-10.8 X10*3/uL) 6.2 (Ref Range: 4.8-10.8 X10*3/uL) 7.4 (Ref Range: 4.8-10.8 X10*3/uL) Red Blood Count 3.61?L (Ref Range: 4.20-5.50 X10*6/uL) 3.55?L (Ref Range: 4.20-5.50 X10*6/uL) 3.57?L (Ref Range: 4.20-5.50 X10*6/uL) Hemoglobin 11.5?L (Ref Range: 12.0-16.0 g/dl) 11.4?L (Ref Range: 12.0-16.0 g/dl) 11.6?L (Ref Range: 12.0-16.0 g/dl) Hematocrit 36.5?L (Ref Range: 37.0-47.0 %) 36.3?L (Ref Range: 37.0-47.0 %) 35.6?L (Ref Range: 37.0-47.0 %) Mean Corpuscular Volume 101.1?H (Ref Range: 80.0-98.0 fL) 102.3?H (Ref Range: 80.0-98.0 fL) 99.7?H (Ref Range: 80.0-98.0 fL) Mean Corpuscular Hemoglobin 31.9 (Ref Range: 27.0-33.0 pg) 32.1 (Ref Range: 27.0-33.0 pg) 32.5 (Ref Range: 27.0-33.0 pg) Mean Corpuscular HGB Conc 31.5 (Ref Range: 31.0-35.0 g/dl) 31.4 (Ref Range: 31.0-35.0 g/dl) 32.6 (Ref Range: 31.0-35.0 g/dl) Red Cell Distribution Width 14.2 (Ref Range: 11.0-16.0 %) 14.4 (Ref Range: 11.0-16.0 %) 14.6 (Ref Range: 11.0-16.0 %) Platelet Count 207 (Ref Range: 160-400 X10*3/uL) 209 (Ref Range: 160-400 X10*3/uL) 212 (Ref Range: 160-400 X10*3/uL) Mean Platelet Volume 9.0?L (Ref Range: 9.4-12.3 fL) 8.9?L (Ref Range: 9.4-12.3 fL) 9.1?L (Ref Range: 9.4-12.3 fL) Neutrophils Percent Auto 72.4 (Ref Range: 45-73 %) 61.3 (Ref Range: 45-73 %) 71.3 (Ref Range: 45-73 %) Imm Gran Pct Auto 0.4 (Ref Range: 0.0-0.4 %) 0.5?H (Ref Range: 0.0-0.4 %) 0.4 (Ref Range: 0.0-0.4 %) Lymphocytes Percent Auto 17.4?L (Ref Range: 20-40 %) 25.8 (Ref Range: 20-40 %) 18.8?L (Ref Range: 20-40 %) Monocytes Percent Auto 8.6 (Ref Range: 2-11 %) 11.1?H (Ref Range: 2-11 %) 8.5 (Ref Range: 2-11 %) Eosinophils Percent Auto 0.6 (Ref Range: 0-4 %) 0.8 (Ref Range: 0-4 %) 0.5 (Ref Range: 0-4 %) Basophils Percent Auto 0.6 (Ref Range: 0-2 %) 0.5 (Ref Range: 0-2 %) 0.5 (Ref Range: 0-2 %) NRBC Pct Auto 0.0 (Ref Range: 0.0-0.2 /100WBC) 0.0 (Ref Range: 0.0-0.2 /100WBC) 0.0 (Ref Range: 0.0-0.2 /100WBC) Neutrophils Absolute Auto 5.9 (Ref Range: 2.0-8.3 x10*3/uL) 3.8 (Ref Range: 2.0-8.3 x10*3/uL) 5.3 (Ref Range: 2.0-8.3 x10*3/uL) Imm Gran Abs Auto 0.03 (Ref Range: 0.00-0.03 X10*3/uL) 0.03 (Ref Range: 0.00-0.03 X10*3/uL) 0.03 (Ref Range: 0.00-0.03 X10*3/uL) Lymphocytes Absolute Auto 1.4 (Ref Range: 1.2-4.9 X10*3/uL) 1.6 (Ref Range: 1.2-4.9 X10*3/uL) 1.4 (Ref Range: 1.2-4.9 X10*3/uL) Monocytes Absolute Auto 0.7 (Ref Range: 0.1-1.2 X10*3/uL) 0.7 (Ref Range: 0.1-1.2 X10*3/uL) 0.6 (Ref Range: 0.1-1.2 X10*3/uL) Eosinophils Absolute Auto 0.1 (Ref Range: 0.0-0.4 X10*3/uL) 0.1 (Ref Range: 0.0-0.4 X10*3/uL) 0.0 (Ref Range: 0.0-0.4 X10*3/uL) Basophils Absolute Auto 0.1 (Ref Range: 0.0-0.2 X10*3/uL) 0.0 (Ref Range: [...] blood pressure has been in the normal range.???3.?Acute pulmonary embolism without acute cor pulmonale, unspecified pulmonary embolism type - I26.99???Notes :She has had no bleeding. She continues on her current therapy.???4.?Lupus anticoagulant syndrome - D68.62???Notes :She has had no symptoms of blood clots or emboli or bleeding.She remains anticoagulated.???5.?Anticoagulated - Z79.01???Notes :She was continued on current therapy. No change was made.???6.?Overweight (BMI 25.0-29.9) - E66.3???Notes :She has lost 18 pounds through diet and exercise. She remains only slightly overweight. I suggested she stabilize her weight at this level.??? Plan: * Treatment: 2.?Others? Continue predniSONE Tablet, 1 MG, TAKE 5 TABLETS BY MOUTH ONCE DAILY WITH FOOD FOR 30 DAYS;?Continue Eliquis Tablet, 5 MG, TAKE 1 TABLET BY MOUTH TWICE A DAY DIRECTED.?? * Procedure Codes:? * Preventive Medicine:? ??Counseling:?Care goal follow-up plan:?Counseling for abnormal BMI given?Yes ?Above Normal BMI Follow-up?Dietary management education, guidance, and counseling * Follow Up:?3 Weeks (Reason: TV) * Images: * Sign off status: Completed true * Provider:?Gage Day MD Date:?02/19 Generated for Brendan lantigua/Chacho/Nicole on:?05/01/2024 07:53 AM EDT History and Physical Notes * HPI (History of Present Illness) Category Sub-Category Detail Notes Telehealth Location of [facility] rendering services:: {...} [address] [place] [id number] Location of patient:: address listed in demographics [...]
--- OUTSIDE RECORDS SUMMARY | 2024-05-01 07:54 | XMS_ITS ---
Author Organization [facility] Address [address] [place] [address] Care Team Providers Care Ceo & Founder Name Role Phone Sg Zhong MD Primary Care Provider UnavailaGge Brown Unavailable [phone] Allergies Allergen (clinical drug ingredient) Drug/Non Drug Allergy documented on EMR Reaction Allergy Type Onset Date Status Substance with sulfonamide structure and antibacterial mechanism of action (substance) Sulfa Antibiotics Unknown Drug Allergy Active Penicillin Unknown Drug Allergy Active antibiotics (uncoded) rash Allergy Active REASON FOR VISIT Patient presents today for a recall colonoscopy Medications Medication SIG (Take, Route, Frequency, Duration) [...] Sodium 50 MCG Oral for 90 Active Social History Tobacco Use: Social History Observation Description Date Details (start date - stop date) Never Smoker NA - NA Tobacco Use/Smoking Question Answer Notes Patient is a nonsmoker Alcohol Screen Question Answer Notes Did you have a drink containing alcohol in the p ast year? No Points 0 Interpretation Negative Section Notes: Nonsmoker, no sig alcohol Problems Problem Type SNOMED Code ICD Code Onset Dates Problem Status W/U Status Risk Notes Problem History of adenomatous polyp of colon (322433567) History of adenomatous polyp of colon (Z86.010) Active confirmed Problem Long-term current use of anticoagulant (782451758) Current use of shelter anticoagulation (Z79.01) Active confirmed Vital Signs Blood pressure systolic 00 mm Hg 06/11/19 24 Blood pressure diastolic 00 mm Hg 024 Height 67.5 in 06/11/2023 Weight 174 lbs 06/11/2023 BMI 26.85 kg/m2 06/11/2023 Encounters Encounter Location Date Provider Diagnosis [facility] [address] [place] [address] 06/11/2023 Gage Lizarraga History of adenomato us polyp of colon Z86.010 ; Current use of shelter anticoagulation Z79.01 and Encounter for screening for malignant neoplasm of colon Z12.11 Assessments Encounter Date Diagnosis (ICD Code) Assessment Notes Treatment Notes Treatment Clinical Notes Section Notes 06/11/2023 History of adenomatous polyp of colon (ICD-10 - Z86.010) Overall, Roseann appears quite well. Given her age, family history of colon cancer, history of a tubular adenoma of the colon, and her last colonoscopy being almost 6 years ago, I did recommend a followup colonoscopy for further screening purposes. We did review the rationale for that regard to colon cancer prevention. Full consent is obtained for this, including risks of bleeding and perforation. The procedure will be done monitored anesthesia care. She was given the below instructions regarding adjustment of her Eliquis for the procedure and to review that with Dr. Day as to whether he would want her on Lovenox for bridging during that time. Roseann was comfortable with this plan. Thank you again for allowing me to participate in Roseann's care. I shall continue to keep you advised of her progress. 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 Given her age, family history of colon cancer, history of a tubular adenoma of the colon, and her last colonoscopy being almost 6 years ago, I did recommend a followup colonoscopy for further screening purposes. We did review the rationale for that regard to colon cancer prevention. Full consent is obtained for this, including risks of bleeding and perforation. The procedure will be done monitored anesthesia care. She was given the below instructions regarding adjustment of her Eliquis for the procedure and to review that with Dr. Day as to whether he would want her on Lovenox for bridging during that time. Roseann was comfortable with this plan. Thank you again for allowing me to participate in Roseann's care. I shall continue to keep you advised of her progress. 06/11/2023 Encounter for screening for malignant neoplasm of colon (ICD-10 - Z12.11) Stop Eliquis for three days before the colonoscopy and clear that with Dr. Day regarding possible Lovenox injections Overall, Roseann appears quite well. Given her age, family history of colon cancer, history of a tubular adenoma of the colon, and her last colonoscopy being almost 6 years ago, I did recommend a followup colonoscopy for further screening purposes. We did review the rationale for that regard to colon cancer prevention. Full consent is obtained for this, including risks of bleeding and perforation. The procedure will be done monitored anesthesia care. She was given the below instructions regarding adjustment of her Eliquis for the procedure and to review that with Dr. Day as to whether he would want her on Lovenox for bridging during that time. Roseann was comfortable with this plan. Thank you again for allowing me to participate in Roseann's care. I shall continue to keep you advised of her progress. Plan Of Treatment Treatment Notes Assessment Notes Encounter for screening for malignant neoplasm of colon Stop Eliquis for three days before the colonoscopy and clear that with Dr. Day regarding possible Lovenox injections Future Test Test Name Order Date COLONOSCOPY 06/11/2023 Next Appt Details Follow Up: prn, Reason: Progress Notes * OSMAR GUIDOANDOB:1950 (72 yo F)Acc No.[id number]:06/11/2023 Progress Notes Patient:?ROSEANN GUIDO Provider:?Gage Lizarraga MD :1950???Age:72 Y???Sex:Female D ate:06/11/2023 Address:[address] [place] [address] [place], [id number] Pcp:Sg Zhong MD Subjective: * Chief Complaints: * ???Patient presents today fo r a recall colonoscopy * HPI: ???incontinence:? I saw Roseann in the office today for evaluation of her personal history of a tubular adenoma of the colon, family history of colon cancer, and need for colorectal cancer screening. ?I last saw Roseann in July of 2017, at which time she underwent a followup screening colonoscopy with removal of a small tubular adenoma. She presently feels very well. She enjoys a good appetite, without any significant heartburn or dysphagia. Her bowel movements have been regular and without any signs of bleeding. She denies abdominal pain, jaundice, nor weight loss. Her family history is notable for her mother having had colon cancer in her 70s. ?Her most recent labs from just the end of April revealed a hemoglobin of 11.2, platelet count 210,000, and a normal white blood cell count. She describes that she has a CBC about every 3-4 weeks in regard to the previous history of ITP. She does describe that she occasionally will have her prednisone increased by Dr. Day if her platelets drop too low. She had a normal liver profile in January 2023. * ROS:?General/Constitutional:?Change in appetite?denies.?Chills?denies.?Fatigue?denies.?Ophthalmologic:?Comments?all negative.?ENT:?Comments?all negative.?Respiratory:?hemoptysis?denies.?Cough?denies.?Cardiovascular:?Chest pain?denies.?Orthopnea?denies.?Gastrointestinal:?Comments?See HPI for details.?Genitourinary:?Hematuria?denies.?Dysuria?denies.?Musculoskeletal:?Painful joints?denies.?Weakness?denies.?Skin:?Itching?denies.?Rash?denies.?Neurologic:?Headache?denies.?Seizures?denies.?Psychiatric:?Comments?all negative.? * Medical History:? * Surgical History:?No Surgica l History documented. * Hospitalization/Major Diagno stic Procedure:?No Hospitalization History. * Family History:?Father: dece ased, CANCER IN JAW, LUNG.?Mother: , of colon cancer at age 76, diagnosed with Colon cancer.? * Social History:?Tobacco Use:?Tobacco Use/Smoking?Patient is a?nonsmoker.?Drugs/Alcohol:?Alcohol Screen?Did you have a drink containing alcohol in the past year??No,?Points?0,?Interpretation?Negative.?Miscellaneous:?Marital status: . Occupation: retired. ???Nonsmoker, no sig alcohol. * Medications:?TakingCalcium 5 00 MG Tablet 1 tablet with meals Orally Twice a dayMultivitamin - Tablet 1 tablet Orally Once a dayMetoprolol Tartrate 100 MG Tablet 1 tablet with food Orally Twice a dayVitamin B Complex - Tablet Orally predniSONE 5 MG Tablet Oral Eliquis 5 MG Tablet Oral Vitamin D3 50 MCG (1999 UT) Tablet TAKE 1 TABLET DAILY Oral Rosuvastatin Calcium 5 MG Tablet Oral Levothyroxine Sodium 50 MCG Tablet Oral Losartan Potassium 50 MG Tablet Oral Medication List reviewed and reconciled with the patientTaking Calcium 500 MG Tablet 1 tablet with meals Orally Twice a dayTaking Multivitamin - Tablet 1 tablet Orally Once a dayTaking Metoprolol Tartrate 100 MG Tablet 1 tablet with food Orally Twice a dayTaking Vitamin B Complex - Tablet Orally Taking predniSONE 5 MG Tablet Oral Taking Eliquis 5 MG Tablet Oral Taking Vitamin D3 50 MCG (1999 UT) Tablet TAKE 1 TABLET DAILY Oral Taking Rosuvastatin Calcium 5 MG Tablet Oral Taking Levothyroxine Sodium 50 MCG Tablet Oral Taking Losartan Potassium 50 MG Tablet Oral Medication List reviewed and reconciled with the patient * Allergies:?antibiotics: rash PenicillinSulfa Antibioticsyes[Allergies Verified] Objective: * Vitals:?Wt: 174 lbs, Ht: 67. 5 in, BMI:26.85 Index, BP: 00/00 mm Hg. * Examination: ???General Examination: ?GENERAL APPEARANCE:?pleasant, well nourished, well developed, in no acute distress.?EYES:?sclera non-icteric.?ORAL CAVITY:?mucosa moist.?NECK/THYROID:?no cervical lymphadenopathy, neck supple.?SKIN:?nonjaundiced, no spider angiomata.?HEART:?S1, S2 normal.?LUNGS:?clear to auscultation bilaterally.?ABDOMEN:?normal bowel sounds, no guarding or rigidity, no guarding or rigidity, no masses palpable, soft, nontender, nondistended.?EXTREMITIES:?no edema.?NEUROLOGIC:?alert and oriented.? Assessment: * Assessment: 1.?Current use of shelter anticoagulation - Z79.01 (Primary)?2.?History of adenomatous polyp of colon - Z86.010?3.?Encounter for screening for malignant neoplasm of colon - Z12.11? Overall, Roseann appears quite well. Given her age, family history of colon cancer, history of a tubular adenoma of the colon, and her last colonoscopy being almost 6 years ago, I did recommend a followup colonoscopy for further screening purposes. We did review the rationale for that regard to colon cancer prevention. Full consent is obtained for this, including risks of bleeding and perforation. The procedure will be done monitored anesthesia care. She was given the below instructions regarding adjustment of her Eliquis for the procedure and to review that with Dr. Day as to whether he would want her on Lovenox for bridging during that time. Roseann was comfortable with this plan. Thank you again for allowing me to participate in Roseann's care. I shall continue to keep you advised of her progress. Plan: * Treatment: 2.?Encounter for screening for malignant neoplasm of colon?Procedure: COLONOSCOPY (Ordered for 06/11/2023)* with MACsched for 09/11/23 at 8:40 ammiralax Notes: Stop Eliquis for three days before the colonoscopy and clear that with Dr. Day regarding possible Lovenox injections?? * Procedure Codes:?3017F COLOR ECTAL CA SCREEN DOC STE3686I TOBACCO NON-[id number] BP SCR NOT PRFRM REC REASON NOS * Preventive Medicine:? ??Counseling:?Care goal follow-up plan:?Above Normal BMI Follow-up?Giving encouragement to exercise,?BMI management provided?Yes.? ??Urinary Incontinence:?Urinary Incontinence?Assessment:?Absent,?Plan of care documented:?No, reason not specified.? * Follow Up:?prn * * Sign off status: Completed true * Provider:?Gage Lizarraga MD Date:? 024 Generated for Brendan lantigua/Chacho/Nicole on:?05/01/2024 07:53 AM EDT History and Physical Notes * HPI (History of Present Illness) Category Sub-Category Detail Notes Category Not es incontinence I saw Roseann in the office today for evaluation of her personal history of a tubular adenoma of the colon, family history of colon cancer, and need for colorectal cancer screening. I last saw Roseann in July of 2017, at which time she underwent a followup screening colonoscopy with removal of a small tubular adenoma. She presently feels very well. She enjoys a good appetite, without any significant heartburn or dysphagia. Her bowel movements have been regular and without any signs of bleeding. She denies abdominal pain, jaundice, nor weight loss. Her family history is notable for her mother having had colon cancer in her 70s. Her most recent labs from just the end of April revealed a hemoglobin of 11.2, platelet count 210,000, and a normal white blood cell count. She describes that she has a CBC about every 3-4 weeks in regard to the previous history of ITP. She does describe that she occasionally will have her prednisone increased by Dr. Day if her platelets drop too low. She had a normal liver profile in January 2023. Examination Category Sub-Category Detail Notes Category Not es General Examination GENERAL APPEARANCE: pleasant , well [...]
--- OUTSIDE RECORDS SUMMARY | 2024-05-01 07:54 | XMS_ITS ---
Author Organization Gage Day III, MD Address [address] [place] [address] [place] [address] Care Team Providers Care Drop Hammer Pile Driver Operator Name Role Phone Sg Zhong MD Primary Care Provider Unavailab Gage Rainey Unavailable [phone] Allergies Allergen (clinical drug ingredient) Drug/Non Drug [...] capsule Or ally Once a day Active predniSONE 1 MG TAKE 5 TABLETS BY MO [facility] ONCE DAILY WITH FOOD FOR 30 DAYS Active Metoprolol Succinate ER 75 mg 1 tablet Orally Once a day Active Eliquis 5 MG TAKE 1 TABLET BY CHRISTAL TH TWICE A DAY Orally twice a day Active Social History Sex Assigned At : Social History Observation Description Sex Assigned At Female Vital Signs Height 67.5 in 05/01/2024 Weight 168 lbs 05/01/2024 BMI 25.92 kg/m2 05/01/2024 Encounters Encounter Location Date Provider Diagnosis Gage Day III, MD [address] [place] [address] [place] [address] 05/01/2024 Gage Day ITP (idiopathic thrombocytopenic purpura) D69.3 Assessments Encounter Date Diagnosis (ICD Code) Assessment Notes Treat ment Notes Treatment Clinical Notes 05/01/2024 ITP (idiopathic thrombocytopenic purpura) (ICD-10 - D69.3) Her current platelet count is 201,000. She is stable at this time and [...] MCG 1 capsule Orally Once a day predniSONE 1 MG TAKE 5 TABLETS BY MO [facility] ONCE DAILY WITH FOOD FOR 30 DAYS Metoprolol Succinate ER 75 mg 1 tablet Orally Once a day Eliquis 5 MG TAKE 1 TABLET BY CHRISTAL TH TWICE A DAY Orally twice a day Next Appt Details Provider Name:Gage Day, 05/01/2024 11:30:00 AM, [address] [place] [address] , [facility], [place], [address], Progress Notes * Zakia GUIDOOB:1950 (73 yo F)Acc No.[id number]:05/01/2024 Patient:?Roseann GUIDO Provider:?Gage Day MD :1950???Age:73 Y???Sex:Female D ate:05/01/2024 Address:[address] [place] [address] [facility] Pcp:Sg Zhong MD Subjective: * Chief Complaints: * ???1. Telehealth. * HPI: ???:?Telehealth?Location of provider rendering services:?{...} [address] [place] [address] Drive [address] [facility] [address] ?Location of patient:?address listed in demographics for [...] biopsy and aspirate. Iliac crest 05/2014, Colonoscopy, [facility], Dr. Morel, sessile serrated [...] WITH FOOD FOR 30 DAYS , Taking Metoprolol Succinate ER 75 mg Tablet Extended Release 24 Hour 1 tablet Orally Once a day , Taking Levothyroxine Sodium 50 MCG Tablet 1 capsule Orally Once a day , Taking Rosuvastatin Calcium 5 MG Tablet TAKE 1 TABLET BY MOUTH AT BEDTIME Oral , Taking Eliquis 5 MG Tablet TAKE 1 TABLET BY MOUTH TWICE A DAY Orally twice a day , Medication List reviewed and reconciled with the patient * Allergies:?Penicillin, Sulfa cetamide. Objective: * Vitals:?Ht: 67.5, Wt:168, BM I:25.92, Ht-cm: 171.45, Wt-k.2. Assessment: * Assessment: 1.?ITP (idiopathic thrombocy topenic purpura) - D69.3???Notes :Her current platelet count is 201,000. She is stable at this time and no change in her therapy was needed. She will take a 3 day cycle of prednisone 5 mg, 5 mg, 2.5 mg. Her next visit will be in 4 weeks after the holidays after CBC.??? Plan: * Treatment: 2.?Others? Continue Eliquis Tablet, 5 MG, TAKE 1 TABLET BY MOUTH TWICE A DAY, Orally, twice a day;?Continue predniSONE Tablet, 1 MG, TAKE 5 TABLETS BY MOUTH ONCE DAILY WITH FOOD FOR 30 DAYS.?? * Images: * The named appointment provid er may or may not be the originator of this progress note, and it is not deemed complete until electronically signed by the appointment provider. Sign off status: Pending * Provider:?Gage Day MD Date:?04/18 Generated for Brendan lantigua/Chacho/Nicole on:?05/01/2024 07:54 AM EDT History and Physical Notes * HPI (History of Present Illness) Category Sub-Category Detail Notes Telehealth Location of [facility] rendering services:: {...} [address] [place] [address] [place] [address] Location of patient:: address listed in demographics [...]
--- OUTSIDE RECORDS SUMMARY | 2024-05-01 07:54 | XMS_ITS ---
Author Organization [facility] Address [address] [place] [address] Care Team Providers Care Energy Sales Broker Name Role Phone Sg Zhong MD Primary Care Provider Unavailab Gage Castellanos Unavailable [phone] REASON FOR VISIT has covid Encounters Encounter Location Date Provider Diagnosis [facility] [address] [place] [address] 09/09/2023 Gage Lizarraga Plan Of Treatment No Information Progress Notes * SAMPSON GUIDOOB:1950 (72 yo F)Acc No.[id number]:09/09/2023 Patient:?SERG GUIDO :1950???Age:72 Y???Sex:Female Address:[address] [place] [address] [place] [address] * true * Date:? Generated for Printi ng/Famatiasg/eTransmitting on:?05/01/2024 07:54 AM EDT
--- OUTSIDE RECORDS SUMMARY | 2024-05-01 07:54 | XMS_ITS ---
Author Organization Gage Day III, MD Address [address] [place] [address] [place] [address] Care Team Providers Care Messenger Office Name Role Phone Sg Zhong MD Primary Care Provider Unavailab Gage Rainey Unavailable [phone] Allergies Allergen (clinical drug ingredient) Drug/Non Drug Allergy documented on EMR Reaction Allergy Type Onset Date Status sulfacetamide Sulfacetamide Unknown Drug Allergy Active Penicillin Unknown Drug Allergy Active REASON FOR VISIT Idiopathic thrombocytopenic purpura, Thrombophilia, Lupus anticoagulant syndrome Medications Medication SIG (Take, Route, Frequency, Duration) Notes Start Date End Date Status predniSONE 1 MG TAKE 5 TABLETS BY MO [facility] ONCE DAILY WITH FOOD FOR [...] Date Provider Diagnosis Gage Day III, MD [address] [place] [address] [place] [address] 04/07/2024 Gage Day ITP (idiopathic thrombocytopenic purpura) D69.3 ; Essential hypertension I10 ; Anticoagulated Z79.01 ; Lupus anticoagulant syndrome D68.62 ; Acute pulmonary embolism without acute cor pulmonale, unspecified pulmonary embolism type I26.99 and Allergy to sulfa drugs Z88.2 Assessments Encounter Date Diagnosis (ICD Code) Assessment [...] 4 weeks after the holidays after CBC. 04/07/2024 Essential hypertensi on (ICD-10 - I10) She is managed by primary care and says her blood pressure has been in the normal range. 04/07/2024 Anticoagulated (ICD- 10 - Z79.01) She was continued on current therapy. No change was made. 04/07/2024 Lupus anticoagulant syndrome (ICD-10 - D68.62) She has had no symptoms of blood clots or emboli or bleeding.She remains anticoagulated. 04/07/2024 Acute pulmonary embolism without acute cor pulmonale, unspecified pulmonary embolism type (ICD-10 - I26.99) She has had no bleeding. She continues on her current therapy. 04/07/2024 Allergy to sulfa edith desir (ICD-10 - Z88.2) Plan Of Treatment Medication Medication Name Sig Start Date Stop Date Notes predniSONE 1 MG TAKE 5 TABLETS BY MO [facility] ONCE DAILY WITH FOOD FOR 30 DAYS Metoprolol Succinate ER 75 mg 1 tablet Orally Once a day Eliquis 5 MG TAKE 1 TABLET BY CHRISTAL TWICE A DAY DIRECTED Levothyroxine Sodium 50 MCG 1 capsule Orally Once a day Rosuvastatin Calcium 5 MG TAKE 1 TABLET BY MOUTH AT BEDTIME Oral Next Appt Details Follow Up: 3 Weeks, Reason: telehealth Provider Name:Gage Day, 05/01/2024 11:30:00 AM, [address] [place] [address] LEIF [place], [place], [address], Progress Notes * Melia GUIDO:1950 (73 yo F)Acc No.[id number]:04/07/2024 Patient:?Roseann GUIDO Provider:?Gage Day MD :1950???Age:73 Y???Sex:Female D ate:04/07/2024 Address:[address] [place], [place] [address] [id number] Pcp:Sg Zhong MD Subjective: * Chief Complaints: * ???Idiopathic thrombocytopen ic purpuraThrombophiliaLupus anticoagulant syndrome * HPI: ???:? This telehealth visit took place over 15 min. with the patient at home and me in my office.? She gave consent for billing.? She is seeing this was a every few weeks to manage her prednisone therapy of ITP.? Her platelet count is now over 100,000.? She is feeling healthy and well.? No change in her regimen was made.? She has had no bleeding.? She has had no signs of a blood clot.? She has a history of pulmonary embolism was by a colo-a persistent lupus anticoagulant. ?Telehealth?Location of provider rendering services:?{...} [address] [place] [address] ?Location of patient:?address listed in demographics for [...] Count Aut o Diff * Collection Date 03/12/2024 02/17/2024 01/21/2024 Collection Time 07:32 AM 07:50 AM 07:39 AM Order Date 03/12/2024 02/17/2024 01/21/2024 White Blood Count 5.9 (Ref Range: 4.8-10.8 X10*3/uL) 8.2 (Ref Range: 4.8-10.8 X10*3/uL) 6.2 (Ref Range: 4.8-10.8 X10*3/uL) Red Blood Count 3.65?L (Ref Range: 4.20-5.50 X10*6/uL) 3.61?L (Ref Range: 4.20-5.50 X10*6/uL) 3.55?L (Ref Range: 4.20-5.50 X10*6/uL) Hemoglobin 11.8?L (Ref Range: 12.0-16.0 g/dl) 11.5?L (Ref Range: 12.0-16.0 g/dl) 11.4?L (Ref Range: 12.0-16.0 g/dl) Hematocrit 37.1 (Ref Range: 37.0-47.0 %) 36.5?L (Ref Range: 37.0-47.0 %) 36.3?L (Ref Range: 37.0-47.0 %) Mean Corpuscular Volume 101.6?H (Ref Range: 80.0-98.0 fL) 101.1?H (Ref Range: 80.0-98.0 fL) 102.3?H (Ref Range: 80.0-98.0 fL) Mean Corpuscular Hemoglobin 32.3 (Ref Range: 27.0-33.0 pg) 31.9 (Ref Range: 27.0-33.0 pg) 32.1 (Ref Range: 27.0-33.0 pg) Mean Corpuscular HGB Conc 31.8 (Ref Range: 31.0-35.0 g/dl) 31.5 (Ref Range: 31.0-35.0 g/dl) 31.4 (Ref Range: 31.0-35.0 g/dl) Red Cell Distribution Width 14.2 (Ref Range: 11.0-16.0 %) 14.2 (Ref Range: 11.0-16.0 %) 14.4 (Ref Range: 11.0-16.0 %) Platelet Count 201 (Ref Range: 160-400 X10*3/uL) 207 (Ref Range: 160-400 X10*3/uL) 209 (Ref Range: 160-400 X10*3/uL) Mean Platelet Volume 8.9?L (Ref Range: 9.4-12.3 fL) 9.0?L (Ref Range: 9.4-12.3 fL) 8.9?L (Ref Range: 9.4-12.3 fL) Neutrophils Percent Auto 64.1 (Ref Range: 45-73 %) 72.4 (Ref Range: 45-73 %) 61.3 (Ref Range: 45-73 %) Imm Gran Pct Auto 0.3 (Ref Range: 0.0-0.4 %) 0.4 (Ref Range: 0.0-0.4 %) 0.5?H (Ref Range: 0.0-0.4 %) Lymphocytes Percent Auto 23.2 (Ref Range: 20-40 %) 17.4?L (Ref Range: 20-40 %) 25.8 (Ref Range: 20-40 %) Monocytes Percent Auto 10.9 (Ref Range: 2-11 %) 8.6 (Ref Range: 2-11 %) 11.1?H (Ref Range: 2-11 %) Eosinophils Percent Auto 1.0 (Ref Range: 0-4 %) 0.6 (Ref Range: 0-4 %) 0.8 (Ref Range: 0-4 %) Basophils Percent Auto 0.5 (Ref Range: 0-2 %) 0.6 (Ref Range: 0-2 %) 0.5 (Ref Range: 0-2 %) NRBC Pct Auto 0.0 (Ref Range: 0.0-0.2 /100WBC) 0.0 (Ref Range: 0.0-0.2 /100WBC) 0.0 (Ref Range: 0.0-0.2 /100WBC) Neutrophils Absolute Auto 3.7 (Ref Range: 2.0-8.3 x10*3/uL) 5.9 (Ref Range: 2.0-8.3 x10*3/uL) 3.8 (Ref Range: 2.0-8.3 x10*3/uL) Imm Gran Abs Auto 0.02 (Ref Range: 0.00-0.03 X10*3/uL) 0.03 (Ref Range: 0.00-0.03 X10*3/uL) 0.03 (Ref Range: 0.00-0.03 X10*3/uL) Lymphocytes Absolute Auto 1.4 (Ref Range: 1.2-4.9 X10*3/uL) 1.4 (Ref Range: 1.2-4.9 X10*3/uL) 1.6 (Ref Range: 1.2-4.9 X10*3/uL) Monocytes Absolute Auto 0.6 (Ref Range: 0.1-1.2 X10*3/uL) 0.7 (Ref Range: 0.1-1.2 X10*3/uL) 0.7 (Ref Range: 0.1-1.2 X10*3/uL) Eosinophils Absolute Auto 0.1 (Ref Range: 0.0-0.4 X10*3/uL) 0.1 (Ref Range: 0.0-0.4 X10*3/uL) 0.1 (Ref Range: 0.0-0.4 X10*3/uL) Basophils Absolute Auto 0.0 (Ref Range: 0.0-0.2 X10*3/uL) 0.1 (Ref Range: 0.0-0.2 X10*3/uL) 0.0 (Ref Range: 0.0-0.2 X10*3/uL) NRBC Abs Auto 0.000 (Ref Range: 0.0-0.012 X10*3/uL) 0.000 (Ref Range: 0.0-0.012 X10*3/uL) 0.000 (Ref Range: 0.0-0.012 X10*3/uL) Assessment: * Assessment: 1.?ITP (idiopathic thrombocy topenic purpura) - D69.3 (Primary)???Notes :Her current platelet count is 201,000. She [...] no bleeding. She continues on her current therapy.???6.?Allergy to sulfa drugs - Z88.2??? Plan: * Treatment: 2.?Others? Continue predniSONE Tablet, 1 MG, TAKE 5 TABLETS BY MOUTH ONCE DAILY WITH FOOD FOR 30 DAYS;?Continue Eliquis Tablet, 5 MG, TAKE 1 TABLET BY MOUTH TWICE A DAY DIRECTED.?? * Procedure Codes:? * Preventive Medicine:? ??Counseling:?Care goal follow-up plan:?Counseling for abnormal BMI given?Yes ?Above Normal BMI Follow-up?Dietary management education, guidance, and counseling, Intervention, Order not done: Medical or Other reason not done * Follow Up:?3 Weeks (Reason: telehealth) * Images: * Sign off status: Completed true * Provider:?Gage Day MD Date:?03/21 Generated for Brendan lantigua/Chacho/Nicole on:?05/01/2024 07:54 AM EDT History and Physical Notes * HPI (History of Present Illness) Category Sub-Category Detail Notes [facility] {...} [address] [facility] [address] [place] [address] Location of patient:: address listed in demographics [...]
--- OUTSIDE RECORDS SUMMARY | 2024-05-01 07:54 | XMS_ITS | Clinical Summary ---
Author Organization [facility] Address [address] [place] [address] Phone Care Team Providers Care Exterminator Termite Name Role Phone Sg Zhong MD Primary Care Provider [phone] Surgical History Surgery Date Site/Laterality Comments BREAST [...] of Health Screening 01/21/2022 COVID-19 Vaccine ( - season) 2023 Influenza Vaccine (#1) 2023 Breast [...] Encounter for screening mammogram for breast cancer [facility] DEXA AXIAL SKELETON Routine 08/22/2022 11:35 AM [...] year. Mammo Location: [facility], [address] [place] [address], [address], . -------- FINAL REPORT -------- Dictated By: Kaity Jackson Dictated Date: 01/06/2024 08:14 ET Assigned Physician: Kaity Jackson Reviewed and Electronically Signed By: Kaity Jackson Signed Date: 01/06/2024 08:15 ET Workstation ID: [id number] Transcribed By: Self Edit Transcribed Date: 01/06/2024 08:14 ET Narrative 01/06/2024 8:15 AM EST HISTORY: Screening. Right breast biopsy in 2013, pathology benign. COMPARISON: 12/25/22, 12/21/22, 07/04/21, 09/21/19, 10/04/17 ?? TECHNIQUE: Bilateral digital breast tomosynthesis was performed in the CC and MLO projections. Computer aided detection with Viewpoint AI 3D 3.1 was employed. BREAST DENSITY: B [...] CCand MLO projections. Computer aided detection with Viewpoint AI 3D 3.1was employed. BREAST DENSITY: B [...] year. Mammo Location: [facility], [address] [place] [address], [address], . -------- FINAL REPORT -------- Dictated By: Kaity Jackson Dictated Date: 01/06/2024 08:14 ET Assigned Physician: Kaity Jackson Reviewed and Electronically Signed By: Kaity Jackson Signed Date: 01/06/2024 08:15 ET Workstation ID: [id number] Transcribed By: Self Edit Transcribed Date: 01/06/2024 08:14 ET Sg Zhong MD IMG BI PROCEDURES Final Result * TEJAL DEXA AXIAL SKELETON (08/22/2022 11:35 AM EDT) Anatomical Region Laterality Modality Mammography 08/22/2022 9:55 AM EDT Narrative 08/22/2022 11:35 AM EDT [facility] Diagnostic Imaging Department [address] [place] [address] Patient: ??ROSEANN GUIDO ?/Age/Sex: 1950 - - F Unit#: ??[id number] ? Location/Status: ??SPDIMAM/REG CLI ? Mnemonic/Ordering Site: ??MAMDEXAAX/SPMAM Ordering Physician: ??ELLEN DAY MD Tejal Dexa Axial Skeleton - 08/22/22 - 1043 Report Status:Signed HISTORY: ??The patient is a [...] probability of hip fracture of 6.9%. Code 09009 Dictating Physician: ??RODNEY IRELAND MD Electronically Signed by: ??RODNEY IRELAND MD Dic Date/Time: ??08/22/22 1134 Sign date/Time: ??08/22/22 1135 Procedure Note Rodney Ireland MD - 03/26/2023 [facility] Diagnostic Imaging Department [address] [place] [address] Patient: MIKKIROSEANNALIDA Estes./Age/Sex: 1950 - 71 - F Unit#: [id number] Location/Status: SPDIMA/REG CLI [facility] Ordering Physician: ELLEN DAY MD Tejal Dexa Axial Skeleton - 08/22/221042 Report Status:Signed HISTORY: The patient is a [...] density of the femurs bilaterally is 0.903 gm/cf6wllaz is 90% of that of young normals [...] probability of hip fracture of 6.9%. Code 31392 Dictating Physician: RODNEY IRELAND MD Electronically Signed by: RODNEY IRELAND MD Dic Date/Time: 08/22/22 1134 Sign date/Time: 08/22/22 1135 us Ellen Day MD IMG BI PROCEDURES Final Result from Last 3 Months or Most Recently Relevant to [place] [id number] MEDICARE [facility] Care Teams Exterminator Termite Relationship Specialty Start Date End Date Sg Zhong MD [address] [place] [address] [place] PCP - General Internal Medicine 12/11/23
--- OUTSIDE RECORDS SUMMARY | 2024-05-01 07:55 | XMS_ITS | Patient Health Record ---
Author Organization [facility] Address [address] [place] [address] Care Team Providers Care Photographer Apprentice Lithographic Name Role Phone Sg Zhong MD Primary Care Provider UnavailGage Brown Unavailable [phone] Allergies Allergen (clinical drug ingredient) Drug/Non Drug Allergy documented on EMR Reaction Allergy Type Onset Date Status Substance with sulfonamide structure and antibacterial mechanism of action (substance) Sulfa Antibiotics Unknown Drug Allergy Active Penicillin Unknown Drug Allergy Active antibiotics (uncoded) rash Allergy Active Reason For Referral No Information Medications Medication [...] TABLE T DAILY Oral for 90 Active Social History Tobacco Use: Social History Observation Description Date Details (start date - stop date) Never Smoker NA - NA Tobacco Use/Smoking Question Answer Notes Patient is a nonsmoker Alcohol Screen Question Answer Notes Did you have a drink containing alcohol in the p ast year? No Points 0 Interpretation Negative Section Notes: Nonsmoker, no sig alcohol Nonsmoker, no sig alcohol Problems Problem Type SNOMED Code ICD Code Onset Dates Problem Status W/U Status Risk Notes Problem 231672365 Encounter for screening for malignant neoplasm of colon (Z12.11) Active confirmed Problem History of adenomatous polyp of colon (599829850) History of adenomatous polyp of colon (Z86.010) Active confirmed Problem History of polyp of colon (situation) (084711836) Personal history of colonic polyps (Z86.010) Active confirmed Problem Diverticular disease of colon (313127027) Diverticulosis of large intestine without perforation or abscess without bleeding (K57.30) Active confirmed Problem 784689442 Preprocedural examination (Z01.818) Active confirmed Problem Long-term current use of anticoagulant (980062011) Current use of group home anticoagulation (Z79.01) Active confirmed Vital Signs Blood pressure diastolic 00 mm Hg 06/11/2023 Height 67.5 in 06/11/2023 Blood pressure systolic 00 mm Hg 06/11/2023 Weight 174 lbs 06/11/2023 BMI 26.85 kg/m2 06/11/2023 Encounters Encounter Location Date Provider Diagnosis [facility] [address] [place] [id number] 09/11/2023 Gage Lizarraga Colon cancer screeni ng Z12.11 ; Personal history of colonic polyps Z86.010 ; Family history of colon cancer Z80.0 ; Diverticulosis of large intestine without perforation or abscess without bleeding K57.30 and Other hemorrhoids K64.8 [facility] [address] [place] [phone] 06/11/2023 Gage Lizarraga History of adenomato us polyp of colon Z86.010 ; Current use of roasterman anticoagulation Z79.01 and Encounter for screening for malignant neoplasm of colon Z12.11 [facility] [address] [place] [phone] 09/09/2023 Gage Lizarraga Assessments Encounter Date Diagnosis (ICD Code) Assessment Notes Treatment Notes Treatment Clinical Notes Section Notes 09/11/2023 Colon cancer screening (ICD-10 - Z12.11) 09/11/2023 Personal history of colonic polyps (ICD-10 - Z86.010) 06/11/2023 History of adenomatous polyp of colon [...] of her progress. 06/11/2023 Current use of group home anticoagulation (ICD-10 - Z79.01) Overall, Roseann appears [...] to keep you advised of her progress. 09/11/2023 Family history of colon cancer (ICD-10 [...] to keep you advised of her progress. 09/11/2023 Diverticulosis of large intestine without perforation or abscess without bleeding (ICD-10 - K57.30) 09/11/2023 Other hemorrhoids (ICD-10 - K64.8) Plan Of Treatment Future Test Test Name Order Date COLONOSCOPY 11/13/2016 COLONOSCOPY 06/11/2023 Insurance Providers Payer Name Payer Address Payer Phone Subscriber Number Group Number Insured Name Patient Relationship to Insured Coverage Start Date Coverage End Date MEDICARE OF [place] [address] [place] [address] [id number] ROSEANN GUIDO Self - patient is the insured [facility] [address] [place], [place] [id number] ROSEANN GUIDO Self - patient is the insured Medical (General) History Medical History History ICD Code Screening colonoscopy 05-27-19 08--no polyps; just diverticulosis and internal hemorrhoids Denies NH,DM,CVA,Lung disease,renal dise ase ITP--treated with prednisone and Rituxan --dx'd in 2014 HTN Pulmonary embolism-Dr. Day--uses Eliqu is Colonoscopy 07/2017 with a small rectal t ubular adenoma Vertebroplasty Surgical History Surgery Date(Month/Year)
--- OUTSIDE RECORDS SUMMARY | 2024-05-01 07:55 | XMS_ITS ---
Author Organization [facility] Address [address] [place] [address] Care Team Providers Care Friction Welding Machine Operator Name Role Phone Sg Zhong MD Primary Care Provider Unavailab Gage Castellanos Unavailable [phone] REASON FOR VISIT screening,hx polyps Problems Problem Type SNOMED Code ICD Code Onset Dates Problem Status W/U Status Risk Notes Problem History of polyp of colon (situation) (342189678) Personal history of colonic polyps (Z86.010) Active confirmed Problem Diverticular disease of colon (027349383) Diverticulosis of large intestine without perforation or abscess without bleeding (K57.30) Active confirmed Encounters Encounter Location Date Provider Diagnosis [facility] Out[facility] [address] [place], [place] [id number] 09/11/2023 Gage Elham Colon cancer scree javi Z12.11 ; Personal [...] Notes * TRISTON GUIDO:1950 (73 yo F)Acc No.[id number]:09/11/2023 COLON WITH MAC Patient:SERG FERNANDEZ Provider:?Gage Lizarraga MD :1950???Age:72 Y???Sex:Female D ate:09/11/2023 Address:[address] [place] [address] [facility] Pcp:Sg Zhong MD Subjective: * Chief Complaints: * ???1. Screening,hx polyps. * Medical History:? Objective: * Vitals:? Assessment: * Assessment: 1.?Colon cancer screening - Z12.11 (Primary)???2.?Personal history of colonic polyps - Z86.010???3.?Family history of colon cancer - Z80.0???4.?Diverticulosis of large intestine without perforation or abscess without bleeding - K57.30 ??5.?Other hemorrhoids - K64.8??? Plan: * Treatment: * Procedure Codes:?G0105 COLOR EC CANCR SCR; COLNSCPY HI RISK, 0529F INTRVL 3+YRS PTS CLNSCP DOCD, 0528F RCMND FLW-UP 10 YRS DOCD, Modifiers: 1P * * The named appointment provid er may or may not be the originator of this progress note, and it is not deemed complete until electronically signed by the appointment provider. Sign off status: Pending * Provider:?Gage Lizarraga MD Date:? 024 Generated for Brendan lantigua/Chacho/eTransmitting on:?05/01/2024 07:54 AM EDT
[2024-05-01 08:16] LABS: MANUAL DIFF FLAG NO
[2024-05-01 09:14] LABS: Basophils Percent Auto 0.4 % (0-2); Eosinophils Absolute Auto 0.1 X10*3/uL (0.0-0.4); Eosinophils Percent Auto 0.7 % (0-4); Hematocrit 35.5 % (37.0-47.0); Hemoglobin 11.2 g/dl (12.0-16.0); Imm Gran Abs Auto 0.03 X10*3/uL (0.00-0.03); Imm Gran Pct Auto 0.4 % (0.0-0.4); Lymphocytes Absolute Auto 1.2 X10*3/uL (1.2-4.9); Lymphocytes Percent Auto 17.7 % (20-40); Mean Corpuscular HGB Conc 31.5 g/dl (31.0-35.0); Mean Corpuscular Hemoglobin 32.3 pg (27.0-33.0); Mean Corpuscular Volume 102.3 fL (80.0-98.0); Mean Platelet Volume 9.1 fL (9.4-12.3); Monocytes Absolute Auto 0.7 X10*3/uL (0.1-1.2); Monocytes Percent Auto 10.4 % (2-11); Neutrophils Absolute Auto 4.7 x10*3/uL (2.0-8.3); Neutrophils Percent Auto 70.4 % (45-73); Platelet Count 210 X10*3/uL (160-400); Red Blood Count 3.47 X10*6/uL (4.20-5.50); Red Cell Distribution Width 14.5 % (11.0-16.0); White Blood Count 6.7 X10*3/uL (4.8-10.8)
== END 2024-05-01 07:52 | disposition home or self-care (01) ==
LOC: HO.LABR 07:51
PROVIDERS: PCP Internal Medicine Medical Oncology; Visit Provider Internal Medicine Medical Oncology
DX: D69.3 Immune thrombocytopenic purpura (principal)
CPT/HCPCS: 36415; 85025

== ENCOUNTER 2024-05-27 07:04 | Outpatient (REF) | payer MEDICARE, BC, SELFPAY ==
--- OUTSIDE RECORDS SUMMARY | 2024-05-27 07:07 | XMS_ITS ---
Author Organization [facility] Address [address] [place] [address] Care Team Providers Care Cattle Inspector Name Role Phone Sg Zhong MD Primary Care Provider Unavailab Gage Castellanos Unavailable [phone] REASON FOR VISIT has covid Encounters Encounter Location Date Provider Diagnosis [facility] [address] [place] [address] 09/09/2023 Gage Lizarraga Plan Of Treatment No Information Progress Notes * SAMPSON GUIDOOB:1950 (72 yo F)Acc No.[id number]:09/09/2023 Patient:?SERG GUIDO :1950???Age:72 Y???Sex:Female Address:[address] [place] [address] [place] [address] * true * Date:? Generated for Printi rhina/Famatiasg/eTransmitting on:?05/27/2024 07:07 AM EDT
--- OUTSIDE RECORDS SUMMARY | 2024-05-27 07:07 | XMS_ITS ---
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 Assessment: * Assessment: 1.?Current use of half-way anticoagulation - Z79.01 (Primary)?2.?History of adenomatous polyp [...] Procedure Codes:?3017F COLOR ECTAL CA SCREEN DOC [id number] TOBACCO NON-[id number] BP SCR NOT PRFRM REC REASON NOS * Preventive Medicine:? ??Counseling:?Care goal follow-up plan:?Above Normal BMI Follow-up?Giving encouragement to exercise,?BMI management provided?Yes.? ??Urinary Incontinence:?Urinary Incontinence?Assessment:?Absent,?Plan of care documented:?No, reason not specified.? * Follow Up:?prn * * Sign off status: Completed true * Provider:?Gage Lizarraga MD Date:? 024 Generated for Brendan lantigua/Chacho/Nicole on:?05/27/2024 07:07 AM EDT History and Physical Notes * [...]
--- OUTSIDE RECORDS SUMMARY | 2024-05-27 07:07 | XMS_ITS ---
Author Organization Gage Day III, MD Address [address] [place] [address] [place] [address] Care Team Providers Care Psychology Department Chair Name Role Phone Sg Zhong MD Primary Care Provider Unavailab Gage Rainey Unavailable [phone] Allergies Allergen (clinical drug ingredient) Drug/Non Drug Allergy documented on EMR Reaction Allergy Type Onset Date Status sulfacetamide Sulfacetamide Unknown Drug Allergy Active Penicillin Unknown Drug Allergy Active REASON FOR VISIT His idiopathic thrombocytopenic purpura, Thrombophilia, Lupus anticoagulant, Obesity, History of pulmonary embolism Medications Medication SIG (Take, Route, Frequency, Duration) Notes Start Date End Date Status Rosuvastatin Calcium 5 MG TAKE 1 TABLET BY MOUTH AT BEDTIME Oral Active Levothyroxine Sodium 50 MCG 1 capsule Or ally Once a day Active predniSONE 1 MG TAKE 5 TABLETS BY [facility] ONCE DAILY WITH FOOD FOR 30 DAYS Active Metoprolol Succinate ER 75 mg 1 tablet Orally Once a day Active Eliquis 5 MG TAKE 1 TABLET BY CHRISTAL TWICE A DAY Orally twice a day Active Social History Sex Assigned At : Social History Observation Description Sex Assigned At Female Vital Signs Height 67.5 in 05/01/2024 Weight 168 lbs 05/01/2024 BMI 25.92 kg/m2 05/01/2024 Encounters Encounter Location Date Provider Diagnosis Gage Day III, MD [address] [place] [address] [place] [address] 05/01/2024 Gage Shay ITP (idiopathic thrombocytopenic purpura) D69.3 ; Essential hypertension I10 ; Anticoagulated Z79.01 ; Lupus anticoagulant syndrome D68.62 ; Acute pulmonary embolism without acute cor pulmonale, unspecified pulmonary embolism type I26.99 ; Macrocytic anemia D53.9 and Overweight (BMI 25.0-29.9) E66.3 Assessments Encounter Date Diagnosis (ICD Code) Assessment Notes T reatment Notes Treatment Clinical Notes 05/01/2024 ITP (idiopathic thrombocytopenic purpura) (ICD-10 - D69.3) Her current platelet count is 210,000. She is stable at this time and no change in her therapy was needed. She will take a 3 day cycle of prednisone 5 mg, 5 mg, 2.5 mg. Her next visit will be in 4 weeks after the holidays after CBC. 05/01/2024 Essential hypertensi on (ICD-10 - I10) She is managed by primary care and says her blood pressure has been in the normal range. 05/01/2024 Anticoagulated (ICD- 10 - Z79.01) She was continued on current therapy. No change was made. 05/01/2024 Lupus anticoagulant syndrome (ICD-10 - D68.62) She has had no symptoms of blood clots or emboli or bleeding.She remains anticoagulated. 05/01/2024 Acute pulmonary embolism without acute cor pulmonale, unspecified pulmonary embolism type (ICD-10 - I26.99) She has had no bleeding. She continues on her current therapy. 05/01/2024 Macrocytic anemia (ICD-10 - D53.9) She is slowly developing anemia and macrocytosis. Her vitamin B12 and folic acid levels have been normal. Her reticulocyte count is unremarkable. She has had no bleeding. She'll be followed closely for possible myelodysplastic syndrome. 05/01/2024 Overweight (BMI 25.0-29.9) (ICD-10 - E66.3) She [...] 1 MG TAKE 5 TABLETS BY [facility] ONCE DAILY WITH FOOD FOR 30 DAYS Metoprolol Succinate ER 75 mg 1 tablet Orally Once a day Eliquis 5 MG TAKE 1 TABLET BY CHRISTAL TWICE A DAY Orally twice a day Next Appt Details Follow Up: 3 Weeks, Reason: ov Provider Name:Gage Day, 05/28/2024 10:30:00 AM, [address] [place] [address] [address], [address], [place], [address], Progress Notes * Zakia GUIDOOB:1950 (73 yo F)Acc No.[id number]:05/01/2024 Patient:?Roseann GUIDO Provider:?Gage Day MD :1950???Age:73 Y???Sex:Female D ate:05/01/2024 Address:[address] [place] [address] [address] [facility] Pcp:Sg Zhong MD Subjective: * Chief Complaints: * ???His idiopathic thrombocyt openic purpuraThrombophiliaLupus anticoagulantObesityHistory of pulmonary embolism * HPI: ???:? This telehealth visit took place over 15 minutes with the patient at home and me in my office.? He gave consent for billing.? Her platelet count is 210,000.? She has been compliant with her prednisone therapy.? He needs to decline any other form of therapy such as splenectomy or injected medication.? Denies any side effects from the prednisone to no chaange in her dose was made.? A follow-up in 3 weeks was arranged.? She is well controlled at this time.? She has had no bleeding. ?Telehealth?Location of provider rendering services:?{...} [address] [facility] [address] ?Location of patient:?address listed in demographics for [...] pain with exertion?denies.?Dyspnea on exertion?denies.?Shortness of breath?denies.?Gastrointestinal:?Constipation?occasional.?Decreased appetite?denies.?Diarrhea?denies.?Heartburn?occasional.?Nausea?denies.?Rectal bleeding?denies.?Vomiting?denies.?Hematology:?bruising?denies.?petechiae?denies.?Swollen glands?none have been noted.?Genitourinary:?Frequent urination?denies.?Musculoskeletal:?Muscle aches?denies.?Painful joints?denies.?Sciatica?denies.?Weakness?denies.?Skin:?Itching?denies.?Rash?denies.?Skin lesion(s)?denies.?Neurologic:?Difficulty speaking?denies.?Dizziness?denies.?Headache?denies.?Low back pain?denies.?Psychiatric:?Depressed mood?denies.? * Medical History:? * Surgical History:?aspiration cyst right breast, benign apocrine cyst 12/2013negative colonoscopy 2008bone marrow biopsy and aspirate. Iliac crest 4/2015Colonoscopy, [facility], Dr. Morel, sessile serrated polypoid adenoma [...] 30 DAYS Metoprolol Succinate ER 75 mg Tablet Extended Release 24 Hour 1 tablet Orally Once a day Levothyroxine Sodium 50 MCG Tablet 1 capsule Orally Once a day Rosuvastatin Calcium 5 MG Tablet TAKE 1 TABLET BY MOUTH AT BEDTIME Oral Eliquis 5 MG Tablet TAKE 1 TABLET BY MOUTH TWICE A DAY Orally twice a day Medication List reviewed and reconciled with the patientTaking predniSONE 1 MG Tablet TAKE 5 TABLETS BY MOUTH ONCE DAILY WITH FOOD FOR 30 DAYS Taking Metoprolol Succinate ER 75 mg Tablet Extended Release 24 Hour 1 tablet Orally Once a day Taking Levothyroxine Sodium 50 MCG Tablet 1 capsule Orally Once a day Taking Rosuvastatin Calcium 5 MG Tablet TAKE 1 TABLET BY MOUTH AT BEDTIME Oral Taking Eliquis 5 MG Tablet TAKE 1 TABLET BY MOUTH TWICE A DAY Orally twice a day Medication List reviewed and reconciled with the patient * Allergies:?Skylar castaneda[Allergies Verified] Objective: * Vitals:?Ht: 67.5, Wt:168, BM I:25.92, Ht-cm: 171.45, Wt-k.2. * ???Past Orders: Lab:Complete Blood Count Aut o Diff * Collection Date 04/07/2024 03/12/2024 02/17/2024 Collection Time 07:42 AM 07:32 AM 07:50 AM Order Date 04/07/2024 03/12/2024 02/17/2024 White Blood Count 6.4 (Ref Range: 4.8-10.8 X10*3/uL) 5.9 (Ref Range: 4.8-10.8 X10*3/uL) 8.2 (Ref Range: 4.8-10.8 X10*3/uL) Red Blood Count 3.71?L (Ref Range: 4.20-5.50 X10*6/uL) 3.65?L (Ref Range: 4.20-5.50 X10*6/uL) 3.61?L (Ref Range: 4.20-5.50 X10*6/uL) Hemoglobin 12.0 (Ref Range: 12.0-16.0 g/dl) 11.8?L (Ref Range: 12.0-16.0 g/dl) 11.5?L (Ref Range: 12.0-16.0 g/dl) Hematocrit 37.6 (Ref Range: 37.0-47.0 %) 37.1 (Ref Range: 37.0-47.0 %) 36.5?L (Ref Range: 37.0-47.0 %) Mean Corpuscular Volume 101.3?H (Ref Range: 80.0-98.0 fL) 101.6?H (Ref Range: 80.0-98.0 fL) 101.1?H (Ref Range: 80.0-98.0 fL) Mean Corpuscular Hemoglobin 32.3 (Ref Range: 27.0-33.0 pg) 32.3 (Ref Range: 27.0-33.0 pg) 31.9 (Ref Range: 27.0-33.0 pg) Mean Corpuscular HGB Conc 31.9 (Ref Range: 31.0-35.0 g/dl) 31.8 (Ref Range: 31.0-35.0 g/dl) 31.5 (Ref Range: 31.0-35.0 g/dl) Red Cell Distribution Width 14.5 (Ref Range: 11.0-16.0 %) 14.2 (Ref Range: 11.0-16.0 %) 14.2 (Ref Range: 11.0-16.0 %) Platelet Count 217 (Ref Range: 160-400 X10*3/uL) 201 (Ref Range: 160-400 X10*3/uL) 207 (Ref Range: 160-400 X10*3/uL) Mean Platelet Volume 8.7?L (Ref Range: 9.4-12.3 fL) 8.9?L (Ref Range: 9.4-12.3 fL) 9.0?L (Ref Range: 9.4-12.3 fL) Neutrophils Percent Auto 67.0 (Ref Range: 45-73 %) 64.1 (Ref Range: 45-73 %) 72.4 (Ref Range: 45-73 %) Imm Gran Pct Auto 0.3 (Ref Range: 0.0-0.4 %) 0.3 (Ref Range: 0.0-0.4 %) 0.4 (Ref Range: 0.0-0.4 %) Lymphocytes Percent Auto 21.5 (Ref Range: 20-40 %) 23.2 (Ref Range: 20-40 %) 17.4?L (Ref Range: 20-40 %) Monocytes Percent Auto 9.7 (Ref Range: 2-11 %) 10.9 (Ref Range: 2-11 %) 8.6 (Ref Range: 2-11 %) Eosinophils Percent Auto 0.9 (Ref Range: 0-4 %) 1.0 (Ref Range: 0-4 %) 0.6 (Ref Range: 0-4 %) Basophils Percent Auto 0.6 (Ref Range: 0-2 %) 0.5 (Ref Range: 0-2 %) 0.6 (Ref Range: 0-2 %) NRBC Pct Auto 0.0 (Ref Range: 0.0-0.2 /100WBC) 0.0 (Ref Range: 0.0-0.2 /100WBC) 0.0 (Ref Range: 0.0-0.2 /100WBC) Neutrophils Absolute Auto 4.3 (Ref Range: 2.0-8.3 x10*3/uL) 3.7 (Ref Range: 2.0-8.3 x10*3/uL) 5.9 (Ref Range: 2.0-8.3 x10*3/uL) Imm Gran Abs Auto 0.02 (Ref Range: 0.00-0.03 X10*3/uL) 0.02 (Ref Range: [...] 0.0-0.2 X10*3/uL) 0.0 (Ref Range: 0.0-0.2 X10*3/uL) 0.1 (Ref Range: 0.0-0.2 X10*3/uL) NRBC Abs Auto 0.000 (Ref Range: 0.0-0.012 X10*3/uL) 0.000 (Ref Range: 0.0-0.012 X10*3/uL) 0.000 (Ref Range: 0.0-0.012 X10*3/uL) Assessment: * Assessment: 1.?ITP (idiopathic thrombocy topenic purpura) - D69.3 (Primary)???Notes :Her current platelet count is 210,000. She is stable at this time and [...] this level.??? Plan: * Treatment: 2.?Others? Continue Eliquis Tablet, 5 MG, TAKE 1 TABLET BY MOUTH TWICE A DAY, Orally, twice a day;?Continue predniSONE Tablet, 1 MG, TAKE 5 TABLETS BY MOUTH ONCE DAILY WITH FOOD FOR 30 DAYS.?? * Procedure Codes:? * Preventive Medicine:? ??Counseling:?Care goal follow-up plan:?Counseling for abnormal BMI given?Yes ?Above Normal BMI Follow-up?Dietary management education, guidance, and counseling, Dietary needs education * Follow Up:?3 Weeks (Reason: ov) * Images: * Sign off status: Completed true * Provider:?Gage Day MD Date:?04/18 Generated for Brendan lantigua/Chacho/Jyothiitting on:?05/27/2024 07:07 AM EDT History and Physical Notes * HPI (History of Present Illness) Category Sub-Category Detail Notes Telehealth Location of [facility] rendering services:: {...} [address] [facility] [address] Location of patient:: address listed in demographics [...]
--- OUTSIDE RECORDS SUMMARY | 2024-05-27 07:07 | XMS_ITS ---
Author Organization Gage Day III, MD Address [address] [place] [address] [place] [address] Care Team Providers Care Spot Billing Clerk Name Role Phone Sg Zhong MD Primary Care Provider Unavailab Gage Rainey Unavailable [phone] REASON FOR VISIT telehealth Social History Sex Assigned At : Social History Observation Description Sex Assigned At Female Encounters Encounter Location Date Provider Diagnosis Gage Day III, MD [address] [place] [address] [place] [address] 05/22/2024 Gage Day Plan Of Treatment Next Appt Details Provider Name:Gage Day, 05/28/2024 10:30:00 AM, [address] [place] [address] [place], [address], Progress Notes * Zakia GUIDOOB:1950 (73 yo F)Acc No.[id number]:05/22/2024 Patient:?Roseann GUIDO Provider:?Gage Day MD :1950???Age:73 Y???Sex:Female D ate:05/22/2024 Address:[address] [place] [address] [phone] Pcp:Sg Zhong MD Subjective: * Chief Complaints: * ???1. Telehealth. * Medical History:? Objective: * Vitals:? Assessment: Plan: * Treatment: * Images: * The named appointment provid er may or may not be the originator of this progress note, and it is not deemed complete until electronically signed by the appointment provider. Sign off status: Pending * Provider:?Gage Day MD Date:?05/2024 Generated for Brendan lantigua/Chacho/Nicole on:?05/27/2024 07:07 AM EDT
--- OUTSIDE RECORDS SUMMARY | 2024-05-27 07:08 | XMS_ITS | Patient Health Record ---
Author Organization [facility] Address [address] [place] [address] Care Team Providers Care Podiatrist Orthopedic Name Role Phone Sg Zhong MD Primary Care Provider UnavailGage Brown Unavailable [phone] Allergies Allergen (clinical drug ingredient) Drug/Non Drug [...] Problem Status W/U Status Risk Notes Problem 934372414 Encounter for screening for malignant neoplasm of colon (Z12.11) Active confirmed Problem History of adenomatous polyp of colon (607595644) History of adenomatous polyp of colon (Z86.010) Active confirmed Problem History of polyp of colon (situation) (657523884) Personal history of colonic polyps (Z86.010) Active confirmed Problem Diverticular disease of colon (790260854) Diverticulosis of large intestine without perforation or abscess without bleeding (K57.30) Active confirmed Problem 940425365 Preprocedural examination (Z01.818) Active confirmed Problem Long-term current use of anticoagulant (711076945) 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) Active confirmed Vital Signs Blood pressure diastolic 00 mm Hg 06/11/2023 Height 67.5 in 06/11/2023 Blood pressure systolic 00 mm Hg 06/11/2023 Weight 174 lbs 06/11/2023 BMI 26.85 kg/m2 06/11/2023 Encounters Encounter Location Date Provider Diagnosis [facility] Outpatient [address] [place] [phone] 09/11/2023 Gage Lizarraga Colon cancer screeni ng Z12.11 ; Personal history of colonic polyps Z86.010 ; Family history of colon cancer Z80.0 ; Diverticulosis of large intestine without perforation or abscess without bleeding K57.30 and Other hemorrhoids K64.8 [facility] [address] [place] [address] 06/11/2023 Gage Lizarraga History of adenomato us polyp of colon Z86.010 ; Current use of care home anticoagulation Z79.01 and Encounter for screening for malignant neoplasm of colon Z12.11 [facility] [address] [place] [phone] 09/09/2023 Gage Lizarraga Assessments Encounter Date Diagnosis [...] of her progress. 06/11/2023 Current use of care home anticoagulation (ICD-10 - Z79.01) Overall, Roseann [...] Date MEDICARE OF [place] [address] [place] [address] [id number] ROSEANN GUIDO Self - patient is the insured [facility] [address] [place], [place] [phone] [id number] ROSEANN GUIDO Self - patient is the insured Medical (General) History Medical History History ICD Code Screening colonoscopy 05-27-19 08--no polyps; just diverticulosis and internal hemorrhoids Denies AR,DM,CVA,Lung disease,renal dise ase ITP--treated with prednisone and Rituxan --dx'd in 2014 HTN Pulmonary embolism-Dr. Day--uses Eliqu is Colonoscopy 07/2017 with a small rectal t ubular adenoma Vertebroplasty Surgical History Surgery Date(Month/Year)
--- OUTSIDE RECORDS SUMMARY | 2024-05-27 07:08 | XMS_ITS | Clinical Summary ---
Author Organization [facility] Address [address] [place] [phone] Phone Care Team Providers Care System Dispatcher Name Role Phone Sg Zhong MD Primary Care Provider Surgical History Surgery Date Site/Laterality Comments BREAST [...] 12/21/2022, 07/04/2021, Additional history exists RSV Immunization Adult Patients (1 - 1-dose 75+ series) 11/05/2027 Osteoporosis [...] age to complete this topic Meningococcal B Vaccine Aged Out No l onger eligible based on patient's age to complete [...] Encounter for screening mammogram for breast cancer [facility] DEXA AXIAL SKELETON Routine 08/22/2022 11:35 AM [...] year. Mammo Location: [facility], [address] [place] [address], [address], . -------- FINAL REPORT -------- Dictated By: Kaity [place] Dictated Date: 01/06/2024 08:14 ET Assigned Physician: Kaity [place] Reviewed and Electronically Signed By: Kaity [place] Signed Date: 01/06/2024 08:15 ET Workstation ID: [id number] Transcribed By: Self Edit Transcribed Date: 01/06/2024 08:14 ET Narrative 01/06/2024 8:15 AM EST HISTORY: Screening. Right breast biopsy in 2013, pathology benign. COMPARISON: 12/25/22, 12/21/22, 07/04/21, 09/21/19, 10/04/17 ?? TECHNIQUE: Bilateral digital breast tomosynthesis was performed in the CC and MLO projections. Computer aided detection with [employer] AI 3D 3.1 was employed. BREAST DENSITY: [...] CCand MLO projections. Computer aided detection with BrandM[employer] AI 3D 3.1was employed. BREAST DENSITY: B [...] year. Mammo Location: [facility], [address] [place] [address], [address], . -------- FINAL REPORT -------- Dictated By: Kaity [place] Dictated Date: 01/06/2024 08:14 ET Assigned Physician: Kaity [place] Reviewed and Electronically Signed By: Kaity [place] Signed Date: 01/06/2024 08:15 ET Workstation ID: [id number] Transcribed By: Self Edit Transcribed Date: 01/06/2024 08:14 ET Sg Zhong MD IMG BI PROCEDURES Final Result * TEJAL DEXA AXIAL SKELETON (08/22/2022 11:35 AM EDT) Anatomical Region Laterality Modality Mammography 08/22/2022 9:55 AM EDT Narrative 08/22/2022 11:35 AM EDT [facility] Diagnostic Imaging Department [address] [place] [id number] Patient: ??ROSEANN GUIDO ?/Age/Sex: 1950 - - Unit#: ??[id number] ? Location/Status: ??SPDIMAM/REG CLI ? Mnemonic/Ordering Site: [...] probability of hip fracture of 6.9%. Code 71930 Dictating Physician: ??RODNEY IRELAND MD Electronically Signed by: ??RODNEY IRELAND MD Dic Date/Time: ??08/22/22 1134 Sign date/Time: ??08/22/22 1135 Procedure Note Rodney Ireland MD - 03/26/2023 [facility] Diagnostic Imaging Department [address] [place] [id number] Patient: ROSEANN GUIDO./Age/Sex: 1950 - 71 - F Unit#: [id number] Location/Status: SPDIMAM/REG CLI [facility] Ordering Physician: ELLEN DAY MD Tejal Dexa [...] density of the femurs bilaterally is 0.903 gm/yt4swxzf is 90% of that of young normals [...] probability of hip fracture of 6.9%. Code 40070 Dictating Physician: RODNEY IRELAND MD Electronically Signed by: RODNEY IRELAND MD Dic Date/Time: 08/22/22 1134 Sign date/Time: 08/22/22 1135 Ellen Day MD IMG BI PROCEDURES Final Result from Last 3 Months or Most Recently Relevant to Health [place] [phone] MEDICARE [facility] Care Teams System Dispatcher Relationship Specialty Start Date End Date Sg Zhong MD [address] [place], [place] [address]HEMANTH PCP - General Internal Medicine 12/11/23
--- OUTSIDE RECORDS SUMMARY | 2024-05-27 07:08 | XMS_ITS ---
Author Organization [facility] Address [address] [place] [address] Care Team Providers Care Interior Design Project Manager Name Role Phone Sg Zhong MD Primary Care Provider Unavailab Gage Castellanos Unavailable [phone] REASON FOR VISIT screening,hx polyps Problems Problem Type SNOMED Code ICD Code Onset Dates Problem Status W/U Status Risk Notes Problem History of polyp of colon (situation) (078213734) Personal history of colonic polyps (Z86.010) Active confirmed Problem Diverticular disease of colon (645956222) Diverticulosis of large intestine without perforation or abscess without bleeding (K57.30) Active confirmed Encounters Encounter Location Date Provider Diagnosis [facility] Outpatient [address] [place], [place] [id number] 09/11/2023 Gage Elham Colon cancer scree javi [...] Notes * TRISTON GUIDO:1950 (73 yo F)Acc No.[id number]:09/11/2023 COLON WITH MAC Patient:SERG FERNANDEZ Provider:?Gage Lizarraga MD :1950???Age:72 Y???Sex:Female D ate:09/11/2023 Address:[address] [place] [address] [facility] Pcp:Sg Zhong MD Subjective: * Chief Complaints: [...] MD Date:? 024 Generated for Brendan lantigua/Chacho/eTransmitting on:?05/27/2024 07:08 AM EDT
--- OUTSIDE RECORDS SUMMARY | 2024-05-27 07:08 | XMS_ITS ---
Author Organization Gage Day III, MD Address [address] [place] [address] [place] [address] Care Team Providers Care Hazardous Waste Management Specialist Name Role Phone Sg Zhong MD Primary Care Provider Unavailab Gage Rainey Unavailable [phone] Allergies Allergen (clinical drug ingredient) Drug/Non Drug Allergy documented on EMR Reaction Allergy Type Onset Date Status sulfacetamide Sulfacetamide Unknown Drug Allergy Active Penicillin Unknown Drug Allergy Active REASON FOR VISIT Idiopathic thrombocytopenic purpura, Thrombophilia, Lupus anticoagulant syndrome Medications Medication SIG (Take, Route, Frequency, Duration) Notes Start Date End Date Status predniSONE 1 MG TAKE 5 TABLETS BY [facility] ONCE DAILY WITH FOOD FOR 30 [...] Date Provider Diagnosis Gage Day III, MD [address] [place] [address] [place] [address] 04/07/2024 Gage Day ITP (idiopathic thrombocytopenic purpura) [...] 1 MG TAKE 5 TABLETS BY [facility] ONCE DAILY WITH FOOD FOR 30 [...] 3 Weeks, Reason: telehealth Provider Name:Gage Day, 05/28/2024 10:30:00 AM, [address] [place] [address] [address], [place], [address], Progress Notes * Melia GUIDO:1950 (73 yo F)Acc No.[id number]:04/07/2024 Patient:?Roseann GUIDO Provider:?Gage Day MD :1950???Age:73 Y???Sex:Female D ate:04/07/2024 Address:[address] [place], [place] [address], [id number] Pcp:Sg Zhong MD Subjective: * Chief Complaints: [...] anticoagulant. ?Telehealth?Location of provider rendering services:?{...} [address] [place] [address] ?Location of patient:?address listed in demographics for [...] Provider:?Gage Day MD Date:?03/21 Generated for Brendan lantigua/Chacho/Jyothiitting on:?05/27/2024 07:07 AM EDT History and Physical Notes * HPI (History of Present Illness) Category Sub-Category Detail Notes Telehealth Location of [facility] rendering services:: {...} [address] [facility] [address] [place] [address] Location of patient:: address listed in demographics [...]
[2024-05-27 07:12] LABS: MANUAL DIFF FLAG NO
[2024-05-27 07:32] LABS: Basophils Percent Auto 0.6 % (0-2); Eosinophils Absolute Auto 0.1 X10*3/uL (0.0-0.4); Eosinophils Percent Auto 0.8 % (0-4); Hematocrit 37.2 % (37.0-47.0); Hemoglobin 11.7 g/dl (12.0-16.0); Imm Gran Abs Auto 0.03 X10*3/uL (0.00-0.03); Imm Gran Pct Auto 0.5 % (0.0-0.4); Lymphocytes Percent Auto 30.3 % (20-40); Mean Corpuscular HGB Conc 31.5 g/dl (31.0-35.0); Mean Corpuscular Hemoglobin 32.4 pg (27.0-33.0); Mean Platelet Volume 8.8 fL (9.4-12.3); Monocytes Absolute Auto 0.7 X10*3/uL (0.1-1.2); Monocytes Percent Auto 10.6 % (2-11); Neutrophils Absolute Auto 3.7 x10*3/uL (2.0-8.3); Neutrophils Percent Auto 57.2 % (45-73); Platelet Count 218 X10*3/uL (160-400); Red Blood Count 3.61 X10*6/uL (4.20-5.50); Red Cell Distribution Width 13.9 % (11.0-16.0); White Blood Count 6.4 X10*3/uL (4.8-10.8)
== END 2024-05-27 07:05 | disposition home or self-care (01) ==
LOC: HO.LABR 07:04
PROVIDERS: PCP Internal Medicine Medical Oncology; Visit Provider Internal Medicine Medical Oncology
DX: D69.3 Immune thrombocytopenic purpura (principal)
CPT/HCPCS: 36415; 85025

== ENCOUNTER 2024-06-18 07:14 | Outpatient (REF) | payer MEDICARE, BC, SELFPAY ==
--- OUTSIDE RECORDS SUMMARY | 2024-06-18 07:16 | XMS_ITS | Clinical Summary ---
Author Organization [facility] Address [address] [place] [address] Phone Care Team Providers Care Dining Room Manager Name Role Phone Sg Zhong MD Primary Care Provider [phone] Surgical History Surgery Date Site/Laterality Comments BREAST [...] Vaccine ( - season) 2023 Influenza Vaccine (Season Ended) 2024 Breast Cancer Screening 01/05/2026 01/06/20 24, 12/21/2022, [...] Encounter for screening mammogram for breast cancer [facility] DEXA AXIAL SKELETON Routine 08/22/2022 [...] Mammo Location: [facility], [address] [place] [address], [address], . -------- FINAL REPORT -------- Dictated By: Kaity Jackson Dictated Date: 01/06/2024 08:14 ET Assigned Physician: Kaity Jackson Reviewed and Electronically Signed By: Kaity Jackson Signed Date: 01/06/2024 08:15 ET Workstation ID: [id number] Transcribed By: Self Edit Transcribed Date: 01/06/2024 08:14 ET Narrative 01/06/2024 8:15 AM EST HISTORY: Screening. Right breast biopsy in 2013, pathology benign. COMPARISON: 12/25/22, 12/21/22, 07/04/21, 09/21/19, 10/04/17 ?? TECHNIQUE: Bilateral digital breast tomosynthesis was performed in the CC and MLO projections. Computer aided detection with [employer] AI 3D 3.1 was employed. BREAST DENSITY: [...] CCand MLO projections. Computer aided detection with [employer]ff[employer] AI 3D 3.1was employed. BREAST DENSITY: B [...] Mammo Location: [facility], [address] [place] [address], [address], . -------- FINAL REPORT -------- Dictated By: Kaity Jackson Dictated Date: 01/06/2024 08:14 ET Assigned Physician: Kaity Jackson Reviewed and Electronically Signed By: Kaity Jackson Signed Date: 01/06/2024 08:15 ET Workstation ID: [id number] Transcribed By: Self Edit Transcribed Date: 01/06/2024 08:14 ET Sg Zhong MD IMG BI PROCEDURES Final Result * TEJAL DEXA AXIAL SKELETON (08/22/2022 11:35 AM EDT) Anatomical Region Laterality Modality Mammography 08/22/2022 9:55 AM EDT Narrative 08/22/2022 11:35 AM EDT [facility] Diagnostic Imaging Department [address] [place] [id number] Patient: ??ROSEANN GUIDO ?/Age/Sex: 1950 - - Unit#: ??[id number] ? Location/Status: ??SPDIMAM/REG CLI ? Mnemonic/Ordering Site: [...] probability of hip fracture of 6.9%. Code 37801 Dictating Physician: ??RODNEY IRELAND MD Electronically Signed by: ??RODNEY IRELAND MD Dic Date/Time: ??08/22/22 1134 Sign date/Time: ??08/22/22 1135 Procedure Note Rodney Ireland MD - 03/26/2023 [facility] Diagnostic Imaging Department [address] [place] [address] Patient: ROSEANN GUIDO./Age/Sex: 1950 - 71 - F Unit#: [id number] Location/Status: SPDIMAM/REG CLI [facility] Ordering Physician: ELLEN DAY MD Tejal [...] density of the femurs bilaterally is 0.903 gm/hf8nbawe is 90% of that of young normals [...] probability of hip fracture of 6.9%. Code 54553 Dictating Physician: RODNEY IRELAND MD Electronically Signed by: RODNEY IRELAND MD Dic Date/Time: 08/22/22 1134 Sign date/Time: 08/22/22 1135 Ellen Day MD IMG BI PROCEDURES Final Result from Last 3 Months or Most Recently Relevant to [place] [phone] MEDICARE [facility] Care Teams Dining Room Manager Relationship Specialty Start Date End Date Sg Zhong MD [address] [place], [place] [address]HEMANTH PCP - General Internal Medicine 12/11/23
[2024-06-18 07:34] LABS: MANUAL DIFF FLAG NO
[2024-06-18 08:10] LABS: Basophils Percent Auto 0.6 % (0-2); Eosinophils Absolute Auto 0.1 X10*3/uL (0.0-0.4); Eosinophils Percent Auto 1.3 % (0-4); Hematocrit 35.3 % (37.0-47.0); Hemoglobin 11.4 g/dl (12.0-16.0); Imm Gran Abs Auto 0.02 X10*3/uL (0.00-0.03); Imm Gran Pct Auto 0.4 % (0.0-0.4); Lymphocytes Absolute Auto 1.6 X10*3/uL (1.2-4.9); Lymphocytes Percent Auto 30.9 % (20-40); Mean Corpuscular HGB Conc 32.3 g/dl (31.0-35.0); Mean Corpuscular Hemoglobin 32.4 pg (27.0-33.0); Mean Corpuscular Volume 100.3 fL (80.0-98.0); Monocytes Absolute Auto 0.7 X10*3/uL (0.1-1.2); Monocytes Percent Auto 12.9 % (2-11); Neutrophils Absolute Auto 2.8 x10*3/uL (2.0-8.3); Neutrophils Percent Auto 53.9 % (45-73); Platelet Count 221 X10*3/uL (160-400); Red Blood Count 3.52 X10*6/uL (4.20-5.50); Red Cell Distribution Width 14.5 % (11.0-16.0); White Blood Count 5.3 X10*3/uL (4.8-10.8)
== END 2024-06-18 07:15 | disposition home or self-care (01) ==
LOC: HO.LABR 07:14
PROVIDERS: PCP Internal Medicine Medical Oncology; Visit Provider Internal Medicine Medical Oncology
DX: D69.3 Immune thrombocytopenic purpura (principal)
CPT/HCPCS: 36415; 85025

== ENCOUNTER 2024-07-14 07:03 | Outpatient (REF) | payer MEDICARE, BC, SELFPAY ==
--- OUTSIDE RECORDS SUMMARY | 2024-07-14 07:05 | XMS_ITS ---
Author Organization [facility] Address [address] [place] [address] Care Team Providers Care Dollyman Name Role Phone Sg Zhong MD Primary Care Provider UnavailGage Brown Unavailable [phone] Allergies Allergen (clinical drug ingredient) Drug/Non Drug [...] Problem History of adenomatous polyp of colon (704165315) History of adenomatous polyp of colon (Z86.010) Active confirmed Problem Current use of l memo term anticoagulation (Z79.01) Active confirmed Vital Signs Blood pressure systolic 00 mm Hg 06/11/19 24 Blood pressure diastolic 00 mm Hg 024 Height 67.5 in 06/11/2023 Weight 174 lbs 06/11/2023 BMI 26.85 kg/m2 06/11/2023 Encounters Encounter Location Date Provider Diagnosis [facility] [address] [place] [address] 06/11/2023 Gage Lizarraga History of adenomato us polyp of colon Z86.010 ; Current use of group home anticoagulation Z79.01 and Encounter for screening [...] of her progress. 06/11/2023 Current use of long term care administrator anticoagulation (ICD-10 - Z79.01) Overall, Roseann appears [...] Notes * OSMAR GUIDOANDOB:1950 (72 yo F)Acc No.[id number]:06/11/2023 Progress Notes Patient:?ROSEANN GUIDO Provider:?Gage Lizarraga MD :1950???Age:72 Y???Sex:Female D ate:06/11/2023 Address:[address] [place] [address] [address] [id number] Pcp:Sg Zhong MD Subjective: * Chief Complaints: [...] Tablet Oral Taking Vitamin D3 50 MCG (2000 UT) Tablet TAKE 1 TABLET DAILY Oral [...] oriented.? Assessment: * Assessment: 1.?Current use of long term care administrator anticoagulation - Z79.01 (Primary)?2.?History of adenomatous polyp [...] Procedure Codes:?3017F COLOR ECTAL CA SCREEN DOC [id number] TOBACCO [id number] BP SCR NOT PRFRM REC REASON NOS * Preventive Medicine:? ??Counseling:?Care goal follow-up plan:?Above Normal BMI Follow-up?Giving encouragement to exercise,?BMI management provided?Yes.? ??Urinary Incontinence:?Urinary Incontinence?Assessment:?Absent,?Plan of care documented:?No, reason not specified.? * Follow Up:?prn * * Sign off status: Completed true * Provider:?Gage Lizarraga MD Date:? 024 Generated for Efraini rhina/Chacho/eTransmitting on:?07/14/2024 07:05 AM EDT History and Physical Notes * [...]
[2024-07-14 07:19] LABS: MANUAL DIFF FLAG NO
[2024-07-14 08:12] LABS: Basophils Percent Auto 0.7 % (0-2); Eosinophils Absolute Auto 0.1 X10*3/uL (0.0-0.4); Eosinophils Percent Auto 1.1 % (0-4); Hematocrit 35.5 % (37.0-47.0); Hemoglobin 11.5 g/dl (12.0-16.0); Imm Gran Abs Auto 0.02 X10*3/uL (0.00-0.03); Imm Gran Pct Auto 0.4 % (0.0-0.4); Lymphocytes Absolute Auto 1.7 X10*3/uL (1.2-4.9); Lymphocytes Percent Auto 30.8 % (20-40); Mean Corpuscular HGB Conc 32.4 g/dl (31.0-35.0); Mean Corpuscular Hemoglobin 32.7 pg (27.0-33.0); Mean Corpuscular Volume 100.9 fL (80.0-98.0); Mean Platelet Volume 8.8 fL (9.4-12.3); Monocytes Absolute Auto 0.6 X10*3/uL (0.1-1.2); Monocytes Percent Auto 10.8 % (2-11); Neutrophils Absolute Auto 3.1 x10*3/uL (2.0-8.3); Neutrophils Percent Auto 56.2 % (45-73); Platelet Count 222 X10*3/uL (160-400); Red Blood Count 3.52 X10*6/uL (4.20-5.50); Red Cell Distribution Width 14.6 % (11.0-16.0); White Blood Count 5.5 X10*3/uL (4.8-10.8)
== END 2024-07-14 07:04 | disposition home or self-care (01) ==
LOC: HO.LABR 07:03
PROVIDERS: PCP Internal Medicine Medical Oncology; Visit Provider Internal Medicine Medical Oncology
DX: D69.3 Immune thrombocytopenic purpura (principal)
CPT/HCPCS: 36415; 85025

== ENCOUNTER 2024-08-06 07:27 | Outpatient (REF) | payer MEDICARE, BC, SELFPAY ==
[2024-08-06 07:38] LABS: MANUAL DIFF FLAG NO
[2024-08-06 07:52] LABS: Basophils Percent Auto 0.3 % (0-2); Eosinophils Absolute Auto 0.1 X10*3/uL (0.0-0.4); Eosinophils Percent Auto 0.9 % (0-4); Hematocrit 36.3 % (37.0-47.0); Hemoglobin 11.5 g/dl (12.0-16.0); Imm Gran Abs Auto 0.03 X10*3/uL (0.00-0.03); Imm Gran Pct Auto 0.5 % (0.0-0.4); Lymphocytes Absolute Auto 1.5 X10*3/uL (1.2-4.9); Lymphocytes Percent Auto 26.2 % (20-40); Mean Corpuscular HGB Conc 31.7 g/dl (31.0-35.0); Mean Corpuscular Hemoglobin 32.4 pg (27.0-33.0); Mean Corpuscular Volume 102.3 fL (80.0-98.0); Mean Platelet Volume 8.8 fL (9.4-12.3); Monocytes Absolute Auto 0.6 X10*3/uL (0.1-1.2); Monocytes Percent Auto 9.8 % (2-11); Neutrophils Absolute Auto 3.6 x10*3/uL (2.0-8.3); Neutrophils Percent Auto 62.3 % (45-73); Platelet Count 202 X10*3/uL (160-400); Red Blood Count 3.55 X10*6/uL (4.20-5.50); Red Cell Distribution Width 14.5 % (11.0-16.0); White Blood Count 5.8 X10*3/uL (4.8-10.8)
== END 2024-08-06 07:28 | disposition home or self-care (01) ==
LOC: HO.LABR 07:27
PROVIDERS: PCP Internal Medicine Medical Oncology; Visit Provider Internal Medicine Medical Oncology
DX: D69.3 Immune thrombocytopenic purpura (principal)
CPT/HCPCS: 36415; 85025

== ENCOUNTER 2024-08-10 14:41 | Outpatient (AMB) | payer MEDICARE, BC, SELFPAY ==
--- OUTSIDE RECORDS SUMMARY | 2024-08-07 07:30 | XMS_ITS ---
Author Organization Gage Day III, MD Address [address] [place] [address] [address] YADAV Amanda [place] [address] Care Team Providers Care Shape Hand Name Role Phone Sg Zhong MD Primary Care Provider Unavailab Gage Rainey Unavailable [phone] Allergies Allergen (clinical drug ingredient) Drug/Non Drug [...] Date Provider Diagnosis Gage Day III, MD [address] [place] [address] [address] SHINDAL[address]A, HEMANTH [address] 08/07/2024 Gage Day ITP (idiopathic thrombocytopenic purpura) [...] Telehealth Provider Name:Gage Day, 08/28/2024 10:00:00 AM, [address] [place] [address] DR, [address], [place], [address], Progress Notes * Zakia GUIDOOB:1950 (73 yo F)Acc No.[id number]:08/07/2024 Patient: Roseann PIÑA Provider: Robyn Day MD :1950 A ge:73 Y S ex:Female Date:08/07/2024 Address:[address] [place] [address] [facility], [id number] Pcp:Sg Zhong MD Subjective: * Chief Complaints: [...] ocation of provider rendering services: { ...} [address] [place] [address] Drive [address] [facility] [address] L ocation of patient: a ddress listed in demographics for today's visit P atient identification confirmed using: eJanine michelleEDEN asencio T elehealth method: T elephone [...] marrow biopsy and aspirate. Iliac crest 05/2014Colonoscopy, [facility], Dr. Morel, sessile serrated polypoid [...] List reviewed and reconciled with the patientTaking [facility] 5 MG Tablet TAKE 1 [...] Date: 08/07/2024 Generated for Brendan lantigua/Chacho/Nicole on: 08/10/2024 04:13 PM EDT History and Physical Notes * HPI (History of Present Illness) Category Sub-Category Detail Notes Telehealth Location of [facility] rendering services:: {...} [address] [facility] [address] Location of patient:: address listed in demographics [...]
--- NOTE | 2024-08-10 14:53 | MHC.PC.OV ---
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 Fitness Center Attendant Required: No Allergies Sulfa (Sulfonamide Antibiotics) Allergy (Severe, Verified 08/10/24 14:56) Rash whole body rash Penicillins Allergy (Intermediate, Verified 08/10/24 14:56) Abdominal Pain all cillins Tobacco use date assessed: 08/10/24 Fall risk assessment: No Falls in past year Last assessed Fall Risk: 08/10/24 Dental Screening Dental Screen Date: 08/10/24 Did you have a dental visit in the last 12 months?: Yes Did you have a dental problem in the last 6 months where you did not have access to dental care?: No Was dental information given to patient?: Patient has dentist HPI HPI Comments History of Present Illness Details The patient is a 73 year old female with a past medical history of hypertension, hyperlipidemia, hypothyroid, ITP, GERD, DJD presenting to critical access hospital care. Transfer from Dr Zhong who is retiring CV: on toprol, crestor. 139/90. Blood pressures at home are consistently 120-130/60s-70s. Has checked her cuff at the office previously. Denies chest pain, exertional dyspnea. Previously on and did not tolerate losartan, amlodipine. Hypothyroid: On levothyroxine 50mcg daily. ITP: Follows with Dr Day. Does blood work q monthly. On prednisone. Minimal positive ROLANDO 1:80. History of ?sjogrens/lupus positive testing in the past. She does have history of b/l PE during COVID pna for which she continues eliquis indefinetely Colonoscopy 08/2023-q5 years for family history Mammo: Gets annual at [facility]. ROS CONSTITUTIONAL: Denies weight loss, fever and chills. HEENT: Denies changes in vision and hearing. RESPIRATORY: Denies SOB and cough. CV: Denies palpitations and CP GI: Denies abdominal pain, nausea, vomiting and diarrhea. : Denies dysuria and urinary frequency. MSK: Denies new myalgia and joint pain. SKIN: Denies rash and pruritus. NEUROLOGICAL: Denies headache PSYCHIATRIC: Denies recent changes in mood. PHYSICAL EXAM: GENERAL: Alert and oriented x 3. NAD EYES: EOMI. Anicteric. HENT: Moist mucous membranes. No scleral icterus. No cervical lymphadenopathy. LUNGS: Clear to auscultation bilaterally. CARDIOVASCULAR: Regular rate and rhythm. No murmur. No JVD. ABDOMEN: Soft, non-tender +bs EXTREMITIES: No edema. Non-tender. SKIN: No rashes or lesions. Warm. NEUROLOGIC: No focal neurological deficits. CN II-XII grossly intact PSYCHIATRIC: Cooperative. Appropriate mood and affect [facility] Medical History Thyroid disease Back pain Hx of transfusion of platelets (~2014) Poor peripheral circulation Hx of bronchitis (~2022) Chest pain Pulmonary air embolism Hypertension Hypercholesterolemia Chronic ITP (idiopathic thrombocytopenia) Surgical History Hx of kyphoplasty (~08/2022) Hx of colonoscopy Social History Household Members: Spouse Housing: House Are you a primary primary care nurse to a significant other at home: No Do you presently have visiting nurse or other home services: No Alcohol intake: never Patient Tobacco Use Status: Never used Tobacco e-Cigarette/Vaping Use: Never Used service: No Current occupational status: retired Current occupational exposures/hazards: No Cognitive needs: No Hearing needs: No Vision needs: Yes (glasses ) Questionnaire PHQ-9 Over the last 2 weeks, how often have you been bothered by any of the following problems? 1. Little interest or pleasure in doing things: not at all 2. Feeling down, depressed, or hopeless: not at all 3. Trouble falling or staying asleep, or sleeping too much: several days 4. Feeling tired or having little energy: several days 5. Poor appetite or overeating: not at all 6. Feeling bad about yourself - or that you are a failure or have let yourself or your family down: not at all 7. Trouble concentrating on things, such as reading the newspaper or watching television: not at all 8. Moving or speaking so slowly that other people could have noticed. Or the opposite - being so fidgety or restless that you have been moving around a lot more than usual: not at all 9. Thoughts that you would be better off or of hurting yourself in some way: not at all Total score: 2 Depression Screening Interpretation: Negative Depression Screening Done: Yes 44463 - PHQ-9 Billing: Yes Source: Developed by Drs. Gage Geller, Kayleen Gudino, Tian Mackenzie and colleagues, with an educational rylie from [employer]. Thrive Questionnaire I am a: Patient What is your living situation today?: I have a steady place to live Within the past 12 months, did the food you bought not last and you didn't have the money to get more?: Never true Within the past 12 months, did you worry whether your food would run out before you got money to buy more?: Never true Do you have trouble paying for medicines?: No Do you have trouble getting transportation to medical appointments?: No Do you have trouble paying your heating and electricity bill?: No Do you have trouble taking care of your child, family member or friend?: No Do you have trouble with day-to-day activities such as bathing, preparing meals, shopping, managing finances, etc.?: No Are you currently unemployed and looking for a job?: No Are you interested in more education?: No Please select the resources that you would like help with: None Currently or been in a relationship where the following occur: No concerns reported THRIVE Score: 0 AUDIT C Alcohol Use Questionnaire (AUDIT-C) 1. How often do you have a drink containing alcohol?: Never 3. How often do you have six or more drinks on one occasion?: Never Total Score: 0 AMINAH-7 AMB Questionnaire AMINAH-7 Date AMINAH - 7 assessed: 08/10/24 Feeling nervous, anxious, or on edge: 0 = Not at all Not being able to stop or control worryin = Not at all Worrying too much about different things: 0 = Not at all Trouble relaxin = Not at all Being so restless that it is hard to sit still: 0 = Not at all Becoming easily annoyed or irritable: 0 = Not at all Feeling afraid as if something awful might happen: 0 = Not at all Total AMINAH-7 score (0-4 normal; 5-9 mild; 10-14 moderate; 15-21 severe): 0 Source: Developed by Drs. Gage Geller, Kayleen Gudino, Tian Mackenzie and colleagues, with an educational rylie from [employer]. AMINAH-7 Assessment Billing AMINAH-7 Assessment Tool: AMINAH-7 Assessment 54963 Physical exam (Primary Care) Vital Signs: Last Vital Signs Temp 98.8 F 08/10/24 14:58 Pulse 71 08/10/24 14:58 Resp 14 08/10/24 14:58 BP 139/90 H 08/10/24 15:02 Pulse Ox 97 08/10/24 14:58 Oxygen Delivery Method Room Air 08/10/24 14:58 BMI result Body Mass Index 28.8 Tobacco/Smoking Status: Tobacco use Status Tobacco use date assessed 08/10/24 08/10/24 15:03 Patient Tobacco Use Status Never used Tobacco 08/10/24 14:55 e-Cigarette/Vaping Use Never Used 08/10/24 15:03 PHQ-9: PHQ-9 Score PHQ-9: Total score 2 08/10/24 15:04 Depression Screening Interpretation: Negative Currently or been in a relationship where the following occur: No concerns reported Coding Level of Care Code Est Pt Level 4 (12384) Diagnoses Primary hypertension I10 Hypertension type: primary hypertension Hypercholesterolemia E78.00 History of ITP Z86.2 Current use of anticoagulant therapy Z79.01 Positive ROLANDO (antinuclear antibody) R76.8 Additional Codes AMINAH-7 Assessment Billing - AMINAH-7 Assessment Tool: AMINAH-7 Assessment 89053 ([id number]) PHQ-9 - 19598 - PHQ-9 Billing: Yes ([id number]) Assessment & Plan Assessment & Plan (1) Hypertension: Code(s): I10 - Essential (primary) hypertension Category: Medical Qualifiers: Hypertension type: primary hypertension Qualified Code(s): I10 - Essential (primary) hypertension (2) Hypercholesterolemia: Code(s): E78.00 - Pure hypercholesterolemia, unspecified Category: Medical (3) History of ITP: Code(s): Z86.2 - Personal history of diseases of the blood and blood-forming organs and certain disorders involving the immune mechanism Category: Medical (4) Current use of anticoagulant therapy: Code(s): Z79.01 - superintendent terminal (current) use of anticoagulants Category: Medical (5) Positive ROLANDO (antinuclear antibody): Code(s): R76.8 - Other specified abnormal immunological findings in serum Category: Medical Plan 73 year old to establish care Past medical, surgical, social reviewed History of PE-continues AC Hypothyroid-TSH wnl Positive ROLANDO-she can do specific testing prior to next visit ITP continue f/up heme/onc Orders: Orders Complete Blood Count Auto Diff 08/10/24 I10 - Essential (primary) hypertension, I26.94 - Multiple subsegmental thrombotic pulmonary emboli without acute cor pulmonale, Z86.2 - Personal history of diseases of the blood and blood-forming organs and certain disorders involving the immune mechanism XR DEXA axial skeleton 08/10/24 M85.80 - Other specified disorders of bone density and structure, unspecified site Complete Blood Count Auto Diff 6 Months E78.00 - Pure hypercholesterolemia, unspecified, I10 - Essential (primary) hypertension, I26.94 - Multiple subsegmental thrombotic pulmonary emboli without acute cor pulmonale, Z86.2 - Personal history of diseases of the blood and blood-forming organs and certain disorders involving the immune mechanism TSH reflex Free T4 6 Months E78.00 - Pure hypercholesterolemia, unspecified, I10 - Essential (primary) hypertension, I26.94 - Multiple subsegmental thrombotic pulmonary emboli without acute cor pulmonale, Z86.2 - Personal history of diseases of the blood and blood-forming organs and certain disorders involving the immune mechanism Sjogren's Antibodies 6 Months R76.8 - Other specified abnormal immunological findings in serum, Z86.2 - Personal history of diseases of the blood and blood-forming organs and certain disorders involving the immune mechanism Sm Sm/MARINE STEWARD Antibodies 6 Months R76.8 - Other specified abnormal immunological findings in serum, Z86.2 - Personal history of diseases of the blood and blood-forming organs and certain disorders involving the immune mechanism Pathologist Review - CBC 08/10/24 I10 - Essential (primary) hypertension, I26.94 - Multiple subsegmental thrombotic pulmonary emboli without acute cor pulmonale, Z86.2 - Personal history of diseases of the blood and blood-forming organs and certain disorders involving the immune mechanism MM screening mammo BI 08/10/24 Z12.31 - Encounter for screening mammogram for malignant neoplasm of breast Comprehensive Met. Panel 6 Months E78.00 - Pure hypercholesterolemia, unspecified, I10 - Essential (primary) hypertension, I26.94 - Multiple subsegmental thrombotic pulmonary emboli without acute cor pulmonale, Z86.2 - Personal history of diseases of the blood and blood-forming organs and certain disorders involving the immune mechanism Lipid Panel 6 Months E78.00 - Pure hypercholesterolemia, unspecified, I10 - Essential (primary) hypertension, I26.94 - Multiple subsegmental thrombotic pulmonary emboli without acute cor pulmonale, Z86.2 - Personal history of diseases of the blood and blood-forming organs and certain disorders involving the immune mechanism Scleroderma 70 Antibody 6 Months R76.8 - Other specified abnormal immunological findings in serum, Z86.2 - Personal history of diseases of the blood and blood-forming organs and certain disorders involving the immune mechanism Lupus Anticoagulant Panel 6 Months R76.8 - Other specified abnormal immunological findings in serum, Z86.2 - Personal history of diseases of the blood and blood-forming organs and certain disorders involving the immune mechanism Anti DNA DS Antibody 6 Months R76.8 - Other specified abnormal immunological findings in serum, Z86.2 - Personal history of diseases of the blood and blood-forming organs and certain disorders involving the immune mechanism
[2024-08-10 14:58] VITALS: BP 142/94; PULSE 71; RESP 14; TEMP 37.1; O2SAT 97; BMI 28.8
[2024-08-10 15:02] VITALS: BP 139/90
== END 2024-08-10 15:34 | disposition home or self-care (01) ==
LOC: HO.HMCFM 14:42
PROVIDERS: PCP Internal Medicine; Visit Provider Internal Medicine
DX: I10 Essential (primary) hypertension (principal); E78.00 Pure hypercholesterolemia, unspecified; Z86.2 Personal history of diseases of the blood and blood-forming organs and certain disorders involving the immune mechanism; Z79.01 Long term (current) use of anticoagulants; R76.8 Other specified abnormal immunological findings in serum

== ENCOUNTER → 2024-08-10 14:41 | Outpatient (BNVA) | payer MEDICARE, BC, SELFPAY | PROVIDERS: PCP Internal Medicine; Visit Provider Internal Medicine | DX: Z76.89 Persons encountering health services in other specified circumstances (principal); I10 Essential (primary) hypertension; E78.5 Hyperlipidemia, unspecified; E03.9 Hypothyroidism, unspecified; D69.3 Immune thrombocytopenic purpura; K21.9 Gastro-esophageal reflux disease without esophagitis; Z86.711 Personal history of pulmonary embolism; Z79.01 Long term (current) use of anticoagulants; Z79.52 Long term (current) use of systemic steroids; Z79.899 Other long term (current) drug therapy; Z13.31 Encounter for screening for depression; Z13.30 Encounter for screening examination for mental health and behavioral disorders, unspecified | CPT/HCPCS: 96127; 99212 ==

== ENCOUNTER 2024-08-28 07:11 | Outpatient (REF) | payer MEDICARE, BC, SELFPAY ==
--- OUTSIDE RECORDS SUMMARY | 2024-08-07 07:30 | XMS_ITS ---
Author Organization Gage Day III, MD Address [address] [place] [address] [address] Amanda [place] [address] Care Team Providers Care Belt Press Operator Name Role Phone Sg Zhong MD Primary Care Provider Unavailab Gage Rainey Unavailable [phone] Allergies Allergen (clinical drug ingredient) Drug/Non Drug [...] Date Provider Diagnosis Gage Day III, MD [address] [place] [address] [address] SHINDALILA, HEMANTH [address] 08/07/2024 Gage Day ITP (idiopathic thrombocytopenic purpura) [...] 3 Weeks, Reason: Telehealth Provider Name:Gage Day, 08/28/2024 10:00:00 AM, [address] [place] [address] DR, [address], [place], [address], Progress Notes * Zakia GUIDOOB:1950 (73 yo F)Acc No.[id number]:08/07/2024 Patient: Roseann PIÑA Provider: Robyn Day MD :1950 A ge:73 Y S ex:Female Date:08/07/2024 Address:[address] [place] [address] [facility], [id number] Pcp:Sg Zhong MD Subjective: * Chief Complaints: [...] ocation of provider rendering services: { ...} [address] [place] [address] [address] [facility] [address] L ocation of patient: a ddress listed [...] marrow biopsy and aspirate. Iliac crest 05/2014Colonoscopy, [facility] [place], Dr. Morel, sessile serrated [...] List reviewed and reconciled with the patientTaking [facility] 5 MG Tablet TAKE 1 TABLET BY [...] Date: 08/07/2024 Generated for Brendan lantigua/Chacho/Nicole on: 08/28/2024 07:13 AM EDT History and Physical Notes * HPI (History of Present Illness) Category Sub-Category Detail Notes Telehealth Location of [facility] rendering services:: {...} [address] [facility] [address] Location of patient:: address listed in demographics [...]
--- OUTSIDE RECORDS SUMMARY | 2024-08-28 07:14 | XMS_ITS | Patient Health Record ---
Author Organization [facility] Address [address] [place] [address] Care Team Providers Care Electrical Maintenance Technician Name Role Phone Sg Zhong MD Primary Care Provider UnavailGage Brown Unavailable [phone] Allergies Allergen (clinical drug ingredient) Drug/Non Drug [...] Problem Status W/U Status Risk Notes Problem [id number] Encounter for screening for malignant neoplasm of colon (Z12.11) Active confirmed Problem History of adenomatous polyp of colon (727431652) History of adenomatous polyp of colon (Z86.010) Active confirmed Problem History of polyp of colon (situation) (185095548) Personal history of colonic polyps (Z86.010) Active confirmed Problem Diverticular disease of colon (206877702) Diverticulosis of large intestine without perforation or abscess without bleeding (K57.30) Active confirmed Problem 405614395 Preprocedural examination (Z01.818) Active confirmed Problem Long-term current use of anticoagulant (364935412) Current use of intermission coordinator anticoagulation (Z79.01) Active confirmed Encounters Encounter Location Date Provider Diagnosis [facility] [address] [place], [place] [id number] 09/11/2023 Gage Lizarraga Colon cancer screeni ng Z12.11 ; Personal history of colonic polyps Z86.010 ; Family history of colon cancer Z80.0 ; Diverticulosis of large intestine without perforation or abscess without bleeding K57.30 and Other hemorrhoids K64.8 [facility] [address] [place] [address] 09/09/2023 Gage Lizarraga Assessments Encounter Date Diagnosis [...] Date MEDICARE OF [place] [address] [place] [id number] [phone] [id number] SERG GUIDO Self - patient is the insured [facility] [address] [place], [place] [id number] [phone] [id number] SERG GUIDO Self - patient is the insured Medical (General) History Medical History History ICD Code Screening colonoscopy 4-8-20 08--no polyps; just diverticulosis and internal hemorrhoids Denies AL,DM,CVA,Lung disease,renal dise ase ITP--treated with prednisone and Rituxan --dx'd in 2014 HTN Pulmonary embolism-Dr. Day--uses Eliqu is Colonoscopy 07/2017 with a small rectal t ubular adenoma Vertebroplasty Surgical History Surgery Date(Month/Year)
--- OUTSIDE RECORDS SUMMARY | 2024-08-28 07:14 | XMS_ITS | Clinical Summary ---
Author Organization [facility] Address [address] [place] [address] Phone Care Team Providers Care Load Dispatcher Local Name Role Phone Sg Zhong MD Primary Care Provider [phone] Surgical History Surgery Date Site/Laterality Comments BREAST [...] ( - season) 2023 Influenza Vaccine (#1) 2024 Breast Cancer Screening 01/05/2026 01/06/20 24, [...] for screening mammogram for breast cancer [facility] DEXA AXIAL SKELETON Routine 08/22/2022 11:35 [...] Mammo Location: [facility], [address] [place] [address], [address], . -------- FINAL REPORT -------- Dictated By: Kaity Jackson Dictated Date: 01/06/2024 08:14 ET Assigned Physician: Kaity Jackson Reviewed and Electronically Signed By: Kaity Jackson Signed Date: 01/06/2024 08:15 ET Workstation ID: [id number] Transcribed By: Self Edit Transcribed Date: 01/06/2024 08:14 ET Narrative 01/06/2024 8:15 AM EST HISTORY: Screening. Right breast biopsy in 2013, pathology benign. COMPARISON: 12/25/22, 12/21/22, 07/04/21, 09/21/19, 10/04/17 TECHNIQUE: Bilateral digital breast tomosynthesis was performed in the CC and MLO projections. Computer aided detection with [employer] AI 3D 3.1 was employed. BREAST DENSITY: [...] CCand MLO projections. Computer aided detection with [employer] AI 3D 3.1was employed. BREAST DENSITY: B [...] Mammo Location: [facility], [address] [place] [address], [address], . -------- FINAL REPORT -------- Dictated By: Kaity Jackson Dictated Date: 01/06/2024 08:14 ET Assigned Physician: Kaity Jackson Reviewed and Electronically Signed By: Kaity Jackson Signed Date: 01/06/2024 08:15 ET Workstation ID: [id number] Transcribed By: Self Edit Transcribed Date: 01/06/2024 08:14 ET Sg Zhong MD IMG BI PROCEDURES Final Result * TEJAL DEXA AXIAL SKELETON (08/22/2022 11:35 AM EDT) Anatomical Region Laterality Modality Mammography 08/22/2022 9:55 AM EDT Narrative 08/22/2022 11:35 AM EDT [facility] Diagnostic Imaging Department [address] [place] [address] Patient: ROSEANN GUIDOO.B./Age/Sex: 1950 - 71 - F Unit#: [id number] Location/Status: SPDIMA/REG CLI Mnemonic[facility] Ordering Physician: ELLEN DAY MD Tejal Dexa Axial Skeleton - 08/22/221042 Report Status:Signed HISTORY: The patient is a 71-year-old postmenopausal female on chronic glucocorticoid therapy, with clinical concern for metabolic bone disease. FINDINGS: Dual energy x-ray absorptiometry of the [...] 101% of that of age matched controls. This yields a T-score of -0.8 and a Z-score of 0.1 and there is therefore no evidence of osteoporosis or osteopenia here. However, the T-score of the right femoral neck is -1.4 and that of the left femoral neck is -1.4 which is diagnostic of osteopenia. IMPRESSION: 1. Osteopenia. There has been a decrease of 4.2% in bone mineral density in the lumbar spine since the prior examination of 07/04/2021. There has been an increase of 1.0% in bone mineral density in the right femur and a decrease of 1.8% in bone mineral density in the left femur. 2. FRAX analysis yields a 10-year probability of major osteoporotic fracture of 35.0% and a 10-year probability of hip fracture of 6.9%. Code 07371 Dictating Physician: RODNEY IRELAND MD Electronically Signed by: RODNEY IRELAND MD Dic Date/Time: 08/22/22 1134 Sign date/Time: 08/22/22 1135 Procedure Note Rodney Ireland MD - 03/26/2023 [facility] Diagnostic Imaging Department [address] [place] [address] Patient: ROSEANN GUIDO.O.B./Age/Sex: 1950 - 71 - F Unit#: [id number] Location/Status: SPDIMA/REG CLI Mnemonic/Ordering Site: [facility] Ordering Physician: ELLEN DAY MD Tejal Dexa Axial Skeleton - 08/22/223 Report Status:Signed HISTORY: The patient is a [...] density of the femurs bilaterally is 0.903 gm/tw2ewbmf is 90% of that of young normals [...] probability of hip fracture of 6.9%. Code 56029 Dictating Physician: RODNEY IRELAND MD Electronically Signed by: RODNEY IRELAND MD Dic Date/Time: 08/22/22 1134 Sign date/Time: 08/22/22 113 us Ellen Day MD IMG BI PROCEDURES Final Result from Last 3 Months or Most Recently Relevant to [place] [phone] MEDICARE [facility] Care Teams Load Dispatcher Local Relationship Specialty Start Date End Date Sg Zhong MD Adam Pink [place] PCP - General Internal Medicine 12/11/23
[2024-08-28 07:24] LABS: MANUAL DIFF FLAG NO
[2024-08-28 07:45] LABS: Hematocrit 36.3 % (37.0-47.0); Hemoglobin 11.5 g/dl (12.0-16.0); Imm Gran Abs Auto 0.02 X10*3/uL (0.00-0.03); Imm Gran Pct Auto 0.3 % (0.0-0.4); Lymphocytes Absolute Auto 1.6 X10*3/uL (1.2-4.9); Mean Corpuscular HGB Conc 31.7 g/dl (31.0-35.0); Mean Corpuscular Hemoglobin 31.9 pg (27.0-33.0); Mean Corpuscular Volume 100.8 fL (80.0-98.0); NRBC Abs Auto 0.000 X10*3/uL (0.0-0.012); NRBC Pct Auto 0.0 /100WBC (0.0-0.2); Platelet Count 209 X10*3/uL (160-400); Red Blood Count 3.60 X10*6/uL (4.20-5.50); White Blood Count 5.9 X10*3/uL (4.8-10.8)
== END 2024-08-28 07:12 | disposition home or self-care (01) ==
LOC: HO.LABR 07:11
PROVIDERS: PCP Internal Medicine; Visit Provider Internal Medicine Medical Oncology
DX: D69.3 Immune thrombocytopenic purpura (principal)
CPT/HCPCS: 36415; 85025

== ENCOUNTER 2024-09-17 07:32 | Outpatient (REF) | payer MEDICARE, BC, SELFPAY ==
--- OUTSIDE RECORDS SUMMARY | 2024-08-07 07:30 | XMS_ITS ---
Author Organization Gage Day III, MD Address [address] [place] [address] [address] YADAV Amanda [place] [address] Care Team Providers Care Bar Useful Or Busser Name Role Phone Sg Zhong MD Primary Care Provider Unavailab Gage Rainey Unavailable [phone] Allergies Allergen (clinical drug ingredient) Drug/Non Drug [...] Date Provider Diagnosis Gage Day III, MD [address] [place] [address] [address] SHINDALILA, HEMANTH [address] 08/07/2024 Gage Day ITP (idiopathic thrombocytopenic purpura) [...] 3 Weeks, Reason: Telehealth Provider Name:Gage Day, 09/18/2024 10:30:00 AM, [address] [place] [address], [address], [place], [address], Progress Notes * Zakia GUIDOOB:1950 (73 yo F)Acc No.[id number]:08/07/2024 Patient: Roseann PIÑA Provider: Robyn Day MD :1950 A ge:73 Y S ex:Female Date:08/07/2024 Address:[address] [place] [address] [address] [facility], [id number] Pcp:Sg Zhong MD Subjective: * Chief Complaints: [...] ocation of provider rendering services: { ...} [address] [place] [address] [address] [facility] [address] L ocation of patient: a ddress listed [...] marrow biopsy and aspirate. Iliac crest 05/2014Colonoscopy, [facility], Dr. Morel, sessile serrated polypoid adenoma with [...] List reviewed and reconciled with the patientTaking [facility] Table[facility] TAKE 1 TABLET BY [...] true * Provider: Robyn Day MD Date: 08/07/2024 Generated for Brendan lantigua/Chacho/Nicole on: 09/17/2024 07:35 AM EDT History and Physical Notes * HPI (History of Present Illness) Category Sub-Category Detail Notes Telehealth Location of [facility] rendering services:: {...} [address] [facility] [address] Location of patient:: address listed in demographics [...]
--- OUTSIDE RECORDS SUMMARY | 2024-09-17 07:35 | XMS_ITS | Patient Health Record ---
Author Organization [facility] Address [address] [place] [address] Care Team Providers Care Optician Apprentice Dispensing Name Role Phone Farheen (RETIRED) Sg EDWARDS Primary Care Provider Unavailable Gage Lizarraga Unavailable [phone] Allergies Allergen (clinical drug ingredient) Drug/Non Drug [...] Problem Status W/U Status Risk Notes Problem 668229106 Encounter for screening for malignant neoplasm of colon (Z12.11) Active confirmed Problem History of adenomatous polyp of colon (204120297) History of adenomatous polyp of colon (Z86.010) Active confirmed Problem History of polyp of colon (situation) (851287123) Personal history of colonic polyps (Z86.010) Active confirmed Problem Diverticular disease of colon (963653130) Diverticulosis of large intestine without perforation or abscess without bleeding (K57.30) Active confirmed Problem 066579363 Preprocedural examination (Z01.818) Active confirmed Problem Long-term current use of anticoagulant (664986227) Current use of technician terminal and repeater anticoagulation (Z79.01) Active confirmed Plan Of Treatment Future Test Test Name Order Date COLONOSCOPY 11/13/2016 COLONOSCOPY 06/11/2023 Insurance Providers Payer Name Payer Address Payer Phone Subscriber Number Group Number Insured Name Patient Relationship to Insured Coverage Start Date Coverage End Date MEDICARE OF [place] [address] [place] [address] [id number] SERG GUIDO Self - patient is the insured [facility] [address] [place], [place] [id number] SERG GUIDO Self - patient is the insured Medical (General) History Medical History History ICD Code Screening colonoscopy 05-27-19 08--no polyps; just diverticulosis and internal hemorrhoids Denies [place],DM,CVA,Lung disease,renal dise ase ITP--treated with prednisone and Rituxan --dx'd in 2014 HTN Pulmonary embolism-Dr. Day--uses Eliqu is Colonoscopy 07/2017 with a small rectal t ubular adenoma Vertebroplasty Surgical History Surgery Date(Month/Year)
--- OUTSIDE RECORDS SUMMARY | 2024-09-17 07:35 | XMS_ITS | Clinical Summary ---
Author Organization [facility] Address [address] [place] [phone] Phone Care Team Providers Care Certified Hearing Instrument Dispenser Name Role Phone Sg Zhong MD Primary [...] 2) 2002 Colorectal Cancer Screening: Colonoscopy 01/21/2022 Falls Risk Assessment 01/21/2022 Hepatitis C Screening 01/21/2022 Medicare Annual Wellness Visit 01/21/2022 Social Influencers of Health Screening 01/21/2022 COVID-19 Vaccine ( - season) 2023 Depression Screening 02/19/2024 Influenza Vaccine (#1) 2024 Breast Cancer Screening [...] Encounter for screening mammogram for breast cancer [facility] DEXA AXIAL SKELETON Routine 08/22/2022 11:35 [...] year. Mammo Location: [facility], [address] [place] [address], [address], . -------- FINAL REPORT -------- Dictated By: Kaity Jackson Dictated Date: 01/06/2024 08:14 ET Assigned Physician: Kaity Jackson Reviewed and Electronically Signed By: Kaity Jackson Signed Date: 01/06/2024 08:15 ET Workstation ID: [id number] Transcribed By: Self Edit Transcribed Date: 01/06/2024 08:14 ET Narrative 01/06/2024 8:15 AM EST HISTORY: Screening. Right breast biopsy in 2013, pathology benign. COMPARISON: 12/25/22, 12/21/22, 07/04/21, 09/21/19, 10/04/17 TECHNIQUE: Bilateral digital breast tomosynthesis was performed in the CC and MLO projections. Computer aided detection with [employer] AI 3D 3.1 was employed. BREAST DENSITY: [...] CCand MLO projections. Computer aided detection with [employer] AI 3D 3.1was employed. BREAST DENSITY: B [...] year. Mammo Location: [facility], [address] [place] [address], [address], . -------- FINAL REPORT -------- Dictated By: Kaity Jackson Dictated Date: 01/06/2024 08:14 ET Assigned Physician: Kaity Jackson Reviewed and Electronically Signed By: Kaity Jackson Signed Date: 01/06/2024 08:15 ET Workstation ID: [id number] Transcribed By: Self Edit Transcribed Date: 01/06/2024 08:14 ET Sg Zhong MD IMG BI PROCEDURES Final Result * TEJAL DEXA AXIAL SKELETON (08/22/2022 11:35 AM EDT) Anatomical Region Laterality Modality Mammography 08/22/2022 9:55 AM EDT Narrative 08/22/2022 11:35 AM EDT [facility] Diagnostic Imaging Department [address] [place] [place] [address] Patient: ROSEANN GUIDOO.B./Age/Sex: 1950 - 71 - F Unit#: [id number] Location/Status: SPDIMA/REG CLI Mnemonic[facility] Ordering Physician: ELLEN DAY MD Tejal [...] probability of hip fracture of 6.9%. Code 85679 Dictating Physician: RODNEY IRELAND MD Electronically Signed by: RODNEY IRELAND MD Dic Date/Time: 08/22/22 1134 Sign date/Time: 08/22/22 1135 Procedure Note Rodney Ireland MD - 03/26/2023 [facility] Diagnostic Imaging Department [address] [place] [address] Patient: ROSEANN GUIDO.O.B./Age/Sex: 1950 - 71 - F Unit#: [id number] Location/Status: SPDIMA/REG CLI Mnemonic/Ordering Site: [facility] Ordering [...] density of the femurs bilaterally is 0.903 gm/zo4eaxoi is 90% of that of young normals [...] probability of hip fracture of 6.9%. Code 57038 Dictating Physician: RONDEY IRELAND MD Electronically Signed by: RODNEY IRELAND MD Dic Date/Time: 08/22/22 1134 Sign date/Time: 08/22/22 113 us Ellen Day MD IMG BI PROCEDURES Final Result from Last 3 Months or Most Recently Relevant [place] [id number] MEDICARE [facility] Care Teams Certified Hearing Instrument Dispenser Relationship Specialty Start Date End Date Sg Zhong MD Adam Pink MA PCP - General Internal Medicine 12/11/23
[2024-09-17 07:41] LABS: MANUAL DIFF FLAG NO
[2024-09-17 07:55] LABS: Hematocrit 35.2 % (37.0-47.0); Hemoglobin 11.4 g/dl (12.0-16.0); Imm Gran Abs Auto 0.03 X10*3/uL (0.00-0.03); Imm Gran Pct Auto 0.5 % (0.0-0.4); Lymphocytes Absolute Auto 1.6 X10*3/uL (1.2-4.9); Mean Corpuscular HGB Conc 32.4 g/dl (31.0-35.0); Mean Corpuscular Hemoglobin 32.2 pg (27.0-33.0); Mean Corpuscular Volume 99.4 fL (80.0-98.0); NRBC Abs Auto 0.000 X10*3/uL (0.0-0.012); NRBC Pct Auto 0.0 /100WBC (0.0-0.2); Platelet Count 193 X10*3/uL (160-400); Red Blood Count 3.54 X10*6/uL (4.20-5.50); White Blood Count 6.0 X10*3/uL (4.8-10.8)
== END 2024-09-17 07:33 | disposition home or self-care (01) ==
LOC: HO.LABR 07:32
PROVIDERS: PCP Internal Medicine Medical Oncology; Visit Provider Internal Medicine Medical Oncology
DX: D69.3 Immune thrombocytopenic purpura (principal)
CPT/HCPCS: 36415; 85025

== ENCOUNTER 2024-10-09 07:24 | Outpatient (REF) | payer MEDICARE, BC, SELFPAY ==
--- OUTSIDE RECORDS SUMMARY | 2024-10-09 05:30 | XMS_ITS ---
Author Organization Gage Day III, MD Address [address] [place] [address] [place] [address] Care Team Providers Care Prototype Special Build Name Role Phone Eveline Gonzalez ([place]) Primary Care Provider Unavailable Gage Day Unavailable [phone] Allergies Allergen (clinical drug ingredient) Drug/Non Drug [...] 1 MG TAKE 5 TABLETS BY MO [facility] ONCE DAILY WITH FOOD FOR 30 [...] Provider Diagnosis Gage Day III, MD [address] [place] [address] [place] [address] 10/09/2024 Gage Day ITP (idiopathic thrombocytopenic purpura) D69.3 Assessments Encounter Date Diagnosis (ICD Code) Assessment Notes Treat ment Notes Treatment Clinical Notes 10/09/2024 ITP (idiopathic thrombocytopenic purpura) (ICD-10 - D69.3) Her current platelet count is 193,000. She is stable at this time and no change in her therapy was needed. She will take 5 mg of prednisone daily. Her next visit will be in 3 weeks after a CBC. Plan Of Treatment Medication Medication Name [...] day Next Appt Details Provider Name:Gage Day, 10/09/2024 09:30:00 AM, [address] [place] [address], [address], [address], Progress Notes * MIKKI JenniferSameerOB:1950 (73 yo F)Acc No.[id number]:10/09/2024 Patient: Roseann PIÑA Provider: Robyn Day MD :1950 A ge:73 Y S ex:Female Date:10/09/2024 Address:[address] [place] [address] [facility] Pcp:Eveline SingerfieldAngelica Randhawa'willis Subjective: * Chief Complaints: * 1 . Telehealth. * HPI: * : Telehealth L ocation of provider rendering services: { ...} [address] [place] [address] [address] [facility] [address] L ocation of patient: a ddress listed [...] Depressed mood d enies. * Medical History: H [place] (hypertension), Benign cyst right breast 2013, Dental extraction without bleeding age 33, Shingles 2012, Sulfa allergy, Penicillin allergy, Lupus anticoagulant, November 2019, Prolonged PTT due to inhibitor November 2019, Multiple pulmonary emboli November 2019, ITP, Compression fracture T11 July 2022. * Surgical History: a spiration cyst right breast, benign apocrine cyst 12/2013, negative colonoscopy 2007, bone marrow biopsy and aspirate. Iliac crest 05/2014, Colonoscopy, [facility] [place], Dr. 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 * Hospitalization/Major Diagno stic Procedure: N o history . * Family History: F ather: 81 yrs, diagnosed with HTN, DM. M other: 76 yrs. Her father of head and neck cancer. Her mother of colon cancer. She has no children. There is no family history of mental illness or substance abuse. * Social History: T obacco Use: T obacco Control (Standard) T obacco use: N aleshamorick S he is and lives at home with her . She is retired. * Medications: T aking Eliquis 5 MG Tablet TAKE 1 TABLET BY MOUTH TWICE A DAY Orally twice a day , Taking predniSONE 1 MG Tablet TAKE 5 [...] reconciled with the patient * Allergies: P enicillin, Sulfacetamide. Objective: * Vitals: Assessment: * Assessment: 1. I TP (idiopathic thrombocytopenic purpura) - D69.3 N otes :Her current platelet count is 193,000. She is stable at this time and no change in her therapy was needed. She will take 5 mg of prednisone daily. Her next visit will be in 3 weeks after a CBC. Plan: * Treatment: 2. O thers Continue Eliquis Tablet, 5 MG, TAKE 1 TABLET BY MOUTH TWICE A DAY, Orally, twice a day; C ontinue predniSONE Tablet, 1 MG, TAKE 5 TABLETS BY MOUTH ONCE DAILY WITH FOOD FOR 30 DAYS. * Procedure Codes: 9 8012 SYNCH AUDIO-ONLY EST SF 10 * Images: * The named appointment provid er may or may not be the originator of this progress note, and it is not deemed complete until electronically signed by the appointment provider. Sign off status: Pending * Provider: Robyn Day MD Date: 10/09/2024 Generated for Brendan lantigua/Chacho/Jyothiitting on: 10/09/2024 07:26 AM EDT History and Physical Notes * HPI (History of Present Illness) Category Sub-Category Detail Notes Telehealth Location of [facility] rendering services:: {...} [address] [place] [address] Location of patient:: address listed in demographics [...]
--- OUTSIDE RECORDS SUMMARY | 2024-10-09 07:27 | XMS_ITS | Patient Health Record ---
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 Name Role Phone Farheen (RETIRED) Sg EDWARDS Primary Care Provider Unavailable Gage Lizarraga Unavailable [phone] Allergies Allergen (clinical drug ingredient) Drug/Non Drug [...] Problem Status W/U Status Risk Notes Problem 246429028 Encounter for screening for malignant neoplasm of colon (Z12.11) Active confirmed Problem History of adenomatous polyp of colon (727681397) History of adenomatous polyp of colon (Z86.010) Active confirmed Problem History of polyp of colon (situation) (207557334) Personal history of colonic polyps (Z86.010) Active confirmed Problem Diverticulosis o f large intestine without perforation or abscess without bleeding (K57.30) Active confirmed Problem 164708739 Preprocedural examination (Z01.818) Active confirmed Problem Current use of l memo term anticoagulation (Z79.01) Active confirmed Plan Of Treatment Future Test Test Name Order Date COLONOSCOPY 11/13/2016 COLONOSCOPY 06/11/2023 Insurance Providers Payer Name Payer Address Payer Phone Subscriber Number Group Number Insured Name Patient Relationship to Insured Coverage Start Date Coverage End Date MEDICARE OF [place] [address] [facility] [address] [id number] SERG GUIDO Self - patient is the insured [facility] [address] [place], [place] [id number] SERG GUIDO Self - patient is the insured Medical (General) History Medical History History ICD Code Screening colonoscopy 05-27-19 08--no polyps; just diverticulosis and internal hemorrhoids Denies DC,DM,CVA,Lung disease,renal dise ase ITP--treated with prednisone and Rituxan --dx'd in 2014 HTN Pulmonary embolism-Dr. Day--uses Eliqu is Colonoscopy 07/2017 with a small rectal t ubular adenoma Vertebroplasty Surgical History Surgery Date(Month/Year)
--- OUTSIDE RECORDS SUMMARY | 2024-10-09 07:27 | XMS_ITS | Clinical Summary ---
Author Organization [facility] Address [address] [place] [address] Phone Care Team Providers Care Gamma Ray Operator Name Role Phone Sg Zhong MD Primary Care Provider [phone] Surgical History Surgery Date Site/Laterality Comments BREAST [...] Encounter for screening mammogram for breast cancer [facility] DEXA AXIAL [facility] Routine 08/22/2022 11:35 AM [...] Mammo Location: [facility], [address] [place] [address], [address], . -------- FINAL REPORT -------- Dictated By: Kaity Jackson Dictated Date: 01/06/2024 08:14 ET Assigned Physician: Kaity Jackson Reviewed and Electronically Signed By: Kaity Jackson Signed Date: 01/06/2024 08:15 ET Workstation ID: [id number] Transcribed By: Self Edit Transcribed Date: 01/06/2024 08:14 ET Narrative 01/06/2024 8:15 AM EST HISTORY: Screening. Right breast biopsy in 2013, pathology benign. COMPARISON: 12/25/22, 12/21/22, 07/04/21, 09/21/19, 10/04/17 TECHNIQUE: Bilateral digital breast tomosynthesis was performed in the CC and MLO projections. Computer aided detection with [employer] AI 3D 3.1 was employed. BREAST DENSITY: [...] CCand MLO projections. Computer aided detection with [employer] AI 3D 3.1was employed. BREAST DENSITY: B [...] Mammo Location: [facility], [address] [place] [address], [address], . -------- FINAL REPORT -------- Dictated By: Kaity Jackson Dictated Date: 01/06/2024 08:14 ET Assigned Physician: Kaity Jackson Reviewed and Electronically Signed By: Kaity Jackson Signed Date: 01/06/2024 08:15 ET Workstation ID: [id number] Transcribed By: Self Edit Transcribed Date: 01/06/2024 08:14 ET Sg Zhong MD IMG BI PROCEDURES Final Result * TEJAL DEXA AXIAL SKELETON (08/22/2022 11:35 AM EDT) Anatomical Region Laterality Modality Mammography 08/22/2022 9:55 AM EDT Narrative 08/22/2022 11:35 AM EDT [facility] Diagnostic Imaging Department [address] [place] [address] Patient: ROSEANN GUIDOO.B./Age/Sex: 1950 - 71 - F Unit#: [id number] Location/Status: SPDIMA/REG CLI Mnemonic/[facility] Ordering Physician: ELLEN DAY MD Tejal [...] probability of hip fracture of 6.9%. Code 33462 Dictating Physician: RODNEY IRELAND MD Electronically Signed by: RODNEY IRELAND MD Dic Date/Time: 08/22/22 1134 Sign date/Time: 08/22/22 1135 Procedure Note Rodney Ireland MD - 03/26/2023 [facility] Diagnostic Imaging Department [address] [place] [address] Patient: ROSEANN GUIDO.O.B./Age/Sex: 1950 - 71 - F Unit#: [id number] Location/Status: SPDIMA/REG CLI Mnemonic/Ordering Site: [facility] Ordering [...] density of the femurs bilaterally is 0.903 gm/tm1rghwy is 90% of that of young normals [...] probability of hip fracture of 6.9%. Code 98021 Dictating Physician: RODNEY IRELAND MD Electronically Signed by: RODNEY IRELAND MD Dic Date/Time: 08/22/22 1134 Sign date/Time: 08/22/22 113 us Ellen Day MD IMG BI PROCEDURES Final Result from Last 3 Months or Most Recently Relevant to [place] [id number] MEDICARE [facility] Care Teams Gamma Ray Operator Relationship Specialty Start Date End Date Sg Zhong MD Adam Pink MA PCP - General Internal Medicine 12/11/23
[2024-10-09 07:39] LABS: MANUAL DIFF FLAG NO
[2024-10-09 07:53] LABS: Hematocrit 37.4 % (37.0-47.0); Hemoglobin 11.7 g/dl (12.0-16.0); Imm Gran Abs Auto 0.02 X10*3/uL (0.00-0.03); Imm Gran Pct Auto 0.3 % (0.0-0.4); Lymphocytes Absolute Auto 1.7 X10*3/uL (1.2-4.9); Mean Corpuscular HGB Conc 31.3 g/dl (31.0-35.0); Mean Corpuscular Hemoglobin 32.1 pg (27.0-33.0); Mean Corpuscular Volume 102.5 fL (80.0-98.0); NRBC Abs Auto 0.000 X10*3/uL (0.0-0.012); NRBC Pct Auto 0.0 /100WBC (0.0-0.2); Platelet Count 202 X10*3/uL (160-400); Red Blood Count 3.65 X10*6/uL (4.20-5.50); White Blood Count 6.1 X10*3/uL (4.8-10.8)
== END 2024-10-09 07:25 | disposition home or self-care (01) ==
LOC: HO.LABR 07:24
PROVIDERS: PCP Internal Medicine; Visit Provider Internal Medicine Medical Oncology
DX: D69.3 Immune thrombocytopenic purpura (principal)
CPT/HCPCS: 36415; 85025

== ENCOUNTER 2024-10-29 07:50 | Outpatient (REF) | payer MEDICARE, BC, SELFPAY ==
--- OUTSIDE RECORDS SUMMARY | 2023-09-11 04:30 | XMS_ITS ---
Author Organization [facility] Address [address] [place] [address] Care Team Providers Care Outside Sales Associate Name Role Phone Farheen (RETIRED) Sg EDWARDS Primary Care Provider Unavailable Gage Lizarraga Unavailable [phone] REASON FOR VISIT screening,hx polyps Problems Problem Type SNOMED Code ICD Code Onset Dates Problem Status W/U Status Risk Notes Problem History of polyp of colon (situation) (733868454) Personal history of colonic polyps (Z86.010) Active confirmed Problem Diverticular disease of colon (244394958) Diverticulosis of large intestine without perforation or abscess without bleeding (K57.30) Active confirmed Encounters Encounter Location Date Provider Diagnosis [facility] [place] [address] [place] [phone] 09/11/2023 Gage Lizarraga Colon cancer scree javi [...] No Information Progress Notes * TRISTON GUIDO:1950 (73 yo F)Acc No.[id number]:09/11/2023 COLON WITH MAC Patient: SERG PIÑA Provider: Robyn Lizarraga MD :1950 A ge:72 Y S ex:Female Date:09/11/2023 Address:[address] [place], [place] [address] Pcp:Sg Zhong (RETIRED) MD Subjective: * Chief [...] 0 09/11/2023 Generated for Brendan lantigua/Chacho/Jyothiitting on: 0 10/29/2024 07:55 AM EDT
--- OUTSIDE RECORDS SUMMARY | 2024-07-14 05:15 | XMS_ITS ---
Author Organization Gage Day III, MD Address [address] [place] [address] [address] [place] [address] Care Team Providers Care Wood Shop Teacher Name Role Phone Eveline Gonzalez (Luis) Primary Care Provider Unavailable Gage Day Unavailable [phone] Allergies Allergen (clinical drug ingredient) Drug/Non Drug [...] Date Provider Diagnosis Gage Day III, MD [address] [place] [address] [address]RI[address], [place] [address] 07/14/2024 Gage Day ITP (idiopathic thrombocytopenic purpura) [...] 3 Weeks, Reason: ov Provider Name:Gage Day, 10/30/2024 09:15:00 AM, [address] [place] [address], [address], [place], [address], Progress Notes * Zakia GUIDOOB:1950 (73 yo F)Acc No.[id number]:07/14/2024 Patient: Roseann PIÑA Provider: Robyn Day MD :1950 A ge:73 Y S ex:Female Date:07/14/2024 Address:[address] [place] [address], [facility], [id number] Pcp:Sg Zhong MD Subjective: * Chief Complaints: [...] ocation of provider rendering services: { ...} [address] [place] [address] Drive [address] [facility] [address] L ocation of patient: a ddress listed [...] marrow biopsy and aspirate. Iliac crest 05/2014Colonoscopy, [facility] [place], [place]. Morel, sessile serrated polypoid adenoma with [...] MD Date: 0 07/14/2024 Generated for Brendan lantigua/Chacho/Jyothiitting on: 0 10/29/2024 07:54 AM EDT History and Physical Notes * HPI (History of Present Illness) Category Sub-Category Detail Notes Telehealth Location of prov ider rendering services:: {...} [address] [facility] [address] Location of patient:: address listed in demographics [...]
--- OUTSIDE RECORDS SUMMARY | 2024-08-07 07:30 | XMS_ITS ---
Author Organization Gage Day III, MD Address [address] [place] [address] [address] [place] [address] Care Team Providers Care Operations Processor Name Role Phone Eveline Gonzalez (Luis) Primary Care Provider Unavailable Gage Day Unavailable [phone] Allergies Allergen (clinical drug ingredient) Drug/Non Drug [...] Date Provider Diagnosis Gage Day III, MD [address] [place] [address] [place] [address] 08/07/2024 Gage Day ITP (idiopathic thrombocytopenic purpura) [...] 3 Weeks, Reason: Telehealth Provider Name:Gage Day, 10/30/2024 09:15:00 AM, [address] [place] [address] DR, [address], [place], [address], Progress Notes * Zakia GUIDOOB:1950 (73 yo F)Acc No.[id number]:08/07/2024 Patient: Roseann PIÑA Provider: Robyn Day MD :1950 A ge:73 Y S ex:Female Date:08/07/2024 Address:[address] [place] [address] [address] [facility], [id number] Pcp:Sg Zhong MD Subjective: * Chief Complaints: [...] ocation of provider rendering services: { ...} [address] [place] [address] [address] [facility] [address] L ocation of patient: a ddress listed in demographics for today's visit P atient identification confirmed using: N michelle, T elehealth method: T elephone only. Patient [...] marrow biopsy and aspirate. Iliac crest 05/2014Colonoscopy, [facility] [place] [place], Dr. Morel, sessile serrated polypoid adenoma [...] Day MD Date: 08/07/2024 Generated for Brendan lantigua/Chacho/Jyothiitting on: 0 10/29/2024 07:54 AM EDT History and Physical Notes * HPI (History of Present Illness) Category Sub-Category Detail Notes Telehealth Location of [facility] rendering services:: {...} [address] [facility] [address] Location of patient:: address listed in demographics [...]
--- OUTSIDE RECORDS SUMMARY | 2024-08-28 06:00 | XMS_ITS ---
Author Organization Gage Day III, MD Address [address] [place] [address] [address] [place] [address] Care Team Providers Care Safety Supervisor Name Role Phone Eveline Gonzalez (Luis) Primary Care Provider Unavailable Gage Day Unavailable [phone] Allergies Allergen (clinical drug ingredient) Drug/Non Drug [...] Date Provider Diagnosis Gage Day III, MD [address] [place] [address] [address], [address] [phone] 08/28/2024 Gage Day ITP (idiopathic thrombocytopenic purpura) [...] Up: 3 Weeks, Reason: ov Provider Name:Gage Ruelasne, 10/30/2024 09:15:00 AM, [address] [place] [address], [facility] [address], [place], [address], Progress Notes * Zakia GUIDOOB:1950 (73 yo F)Acc No.[id number]:08/28/2024 Patient: Roseann PIÑA Provider: Robyn Day MD :1950 A ge:73 Y S ex:Female Date:08/28/2024 Address:[address] [place] [address] [address] [facility], [phone] Pcp:Sg Zhong MD Subjective: * Chief Complaints: [...] ocation of provider rendering services: { ...} [address] [place] [address] [address] [facility] [address] L ocation of patient: a ddress listed in demographics for today's visit P atient identification confirmed using: N michelleEDEN saencio T elehealth method: T elephone only. Patient [...] biopsy and aspirate. Iliac crest 05/2014[place] [facility] [place], sessile serrated polypoid adenoma with [...] 0 08/28/2024 Generated for Brendan lantigua/Chacho/Jyothiitting on: 0 10/29/2024 07:54 AM EDT History and Physical Notes * HPI (History of Present Illness) Category Sub-Category Detail Notes Telehealth Location of [facility] rendering services:: {...} [address] [place] [address] Location of patient:: address listed in demographics [...]
--- OUTSIDE RECORDS SUMMARY | 2024-09-18 06:30 | XMS_ITS ---
Author Organization Gage Day III, MD Address [address] [place] [address] [place] [address] Care Team Providers Care Pattern Hanger Name Role Phone Eveline Gonzalez (Luis) Primary Care Provider Unavailable Gage Day Unavailable [phone] Allergies Allergen (clinical drug ingredient) Drug/Non Drug [...] Date Provider Diagnosis Gage Day III, MD [address] [place] [address] [place] [address] 09/18/2024 Gage Day ITP (idiopathic thrombocytopenic purpura) D69.3 [...] Telehealth Provider Name:Gage Day, 10/30/2024 09:15:00 AM, [address] [place] [address] DR, [address], [place], [address], Progress Notes * Zakia GUIDOOB:1950 (73 yo F)Acc No.[id number]:09/18/2024 Patient: Roseann PIÑA Provider: Robyn Day MD :1950 A ge:73 Y S ex:Female Date:09/18/2024 Address:[address] [place] [address] DR [facility] [place], [id number] Pcp:Eveline SingerfieldAngelica Gonzalez Subjective: * Chief Complaints: * I TPCoagulopathyHistory [...] ocation of provider rendering services: { ...} [address] [place] [address] [address] [facility] [address] L ocation of patient: marcos ddress listed in demographics for today's visit [...] marrow biopsy and aspirate. Iliac crest 05/2014Colonoscopy, [facility], Dr. Morel, sessile serrated polypoid adenoma with [...] MD Date: 0 09/18/2024 Generated for Efraini ng/Ryg/eTransmitting on: 0 10/29/2024 07:54 AM EDT History and Physical Notes * HPI (History of Present Illness) Category Sub-Category Detail Notes Telehealth Location of [facility] rendering services:: {...} [address] [place] [address] [place], [place] [id number] Location of patient:: address listed in demographics [...]
--- OUTSIDE RECORDS SUMMARY | 2024-10-09 05:30 | XMS_ITS ---
Author Organization Gage Day III, MD Address [address] [place] [address] [place] [address] Care Team Providers Care Policy And Planning Manager Name Role Phone Eveline Gonzalez (Luis) Primary Care Provider Unavailable Gage Day Unavailable [phone] Allergies Allergen (clinical drug ingredient) Drug/Non Drug [...] 1 MG TAKE 5 TABLETS BY MO [facility] ONCE DAILY WITH FOOD FOR [...] Date Provider Diagnosis Gage Day III, MD [address] [place] [address] [place] [address] 10/09/2024 Gage Erazorne ITP (idiopathic thrombocytopenic purpura) D69.3 [...] Telehealth Provider Name:Gage Day, 10/30/2024 09:15:00 AM, [address] [place] [address] , [address], [place], [address], Progress Notes * Zakia GUIDOOB:1950 (73 yo F)Acc No.[id number]:10/09/2024 Patient: Roseann PIÑA Provider: Robyn Day MD :1950 A ge:73 Y S ex:Female Date:10/09/2024 Address:[address] [place] [address] [address], [id number] Pcp:Eveline VillarrealSilver Lake) O'alba Subjective: * Chief Complaints: * I TPLupus [...] ocation of provider rendering services: { ...} [address] [place] [address] [address] [facility] [address] L ocation of patient: a ddress listed [...] marrow biopsy and aspirate. Iliac crest 05/2014Colonoscopy, [facility] [place], Dr. Morel, sessile [...] 0 10/09/2024 Generated for Brendan lantigua/Chacho/Jyothiitting on: 0 10/29/2024 07:54 AM EDT History and Physical Notes * HPI (History of Present Illness) Category Sub-Category Detail Notes Telehealth Location of [facility] rendering services:: {...} [address] [facility] [address] [facility] [address] Location of patient:: address listed in demographics [...]
--- OUTSIDE RECORDS SUMMARY | 2024-10-29 07:54 | XMS_ITS | Clinical Summary ---
Author Organization [facility] Address [address] [place] [id number] Phone Care Team Providers Care [employer] Name Role Phone Sg Zhong MD Primary Care Provider [phone] Surgical History Surgery Date Site/Laterality Comments BREAST [...] 01/21/2022 Social Influencers of Health Screening 01/21/2022 Depression Screening 02/19/2024 COVID-19 Vaccine ( - season) 2024 Influenza Vaccine (#1) 2024 Breast Cancer Screening [...] Encounter for screening mammogram for breast cancer [facility] DEXA AXIAL SKELETON Routine 08/22/2022 11:35 [...] year. Mammo Location: [facility], [address] [place] [address], [id number], . -------- FINAL REPORT -------- Dictated By: Kaity Jackson Dictated Date: 01/06/2024 08:14 ET Assigned Physician: Kaity Jackson Reviewed and Electronically Signed By: Kaity Jackson Signed Date: 01/06/2024 08:15 ET Workstation ID: [id number] Transcribed By: Self Edit Transcribed Date: 01/06/2024 08:14 ET Narrative 01/06/2024 8:15 AM EST HISTORY: Screening. Right breast biopsy in 2013, pathology benign. COMPARISON: 12/25/22, 12/21/22, 07/04/21, 09/21/19, 10/04/17 TECHNIQUE: Bilateral digital breast tomosynthesis was performed in the CC and MLO projections. Computer aided detection with [email or web address] AI 3D 3.1 was employed. BREAST DENSITY: [...] CCand MLO projections. Computer aided detection with [email or web address] AI 3D 3.1was employed. BREAST DENSITY: B [...] year. Mammo Location: [facility], [address] [place] [address], [phone], . -------- FINAL REPORT -------- Dictated By: Kaity Jackson Dictated Date: 01/06/2024 08:14 ET Assigned Physician: Kaity Jackson Reviewed and Electronically Signed By: Kaity Jackson Signed Date: 01/06/2024 08:15 ET Workstation ID: [id number] Transcribed By: Self Edit Transcribed Date: 01/06/2024 08:14 ET Sg Zhong MD IMG BI PROCEDURES Final Result * TEJAL DEXA AXIAL SKELETON (08/22/2022 11:35 AM EDT) Anatomical Region Laterality Modality Mammography 08/22/2022 9:55 AM EDT Narrative 08/22/2022 11:35 AM EDT [facility] Diagnostic Imaging Department [address] [place] [id number] Patient: ROSEANN GUIDOO.B./Age/Sex: 1950 - 71 - F Unit#: [id number] Location/Status: SPDIMA/REG CLI Mnemonic[facility] Ordering Physician: ELLEN DAY [...] probability of hip fracture of 6.9%. Code 77605 Dictating Physician: RODNEY IRELAND MD Electronically Signed by: RODNEY IRELAND MD Dic Date/Time: 08/22/22 1134 Sign date/Time: 08/22/22 1135 Procedure Note Rodney Ireland MD - 03/26/2023 [facility] Diagnostic Imaging Department [address] [place] [address] Patient: ROSEANN GUIDO.O.B./Age/Sex: 1950 - 71 - F Unit#: [id number] Location/Status: SPDIMA/REG CLI Mnemonic/Ordering Site: [facility] Ordering [...] density of the femurs bilaterally is 0.903 gm/[id number] is 90% of that of young normals [...] probability of hip fracture of 6.9%. Code 02924 Dictating Physician: RODNEY IRELAND MD Electronically Signed by: RODNEY IRELAND MD Dic Date/Time: 08/22/22 1134 Sign date/Time: 08/22/22 113 us Ellen Day MD IMG BI PROCEDURES Final Result from Last 3 Months or Most Recently Relevant to [place] [id number] MEDICARE [facility] Care Teams [employer]gr[employer] Internship Relationship Specialty Start Date End Date Sg Zhong MD Adam Pink MA PCP - General Internal Medicine 12/11/23
--- OUTSIDE RECORDS SUMMARY | 2024-10-29 07:55 | XMS_ITS | Patient Health Record ---
Author Organization Gage Day III, MD Address [address] [place] [address] [address] [place] [address] Care Team Providers Care Director Of Entertainment Name Role Phone Eveline Gonzalez (Mobile) Primary Care Provider Unavailable Gage Day Unavailable [phone] Allergies Allergen (clinical drug ingredient) Drug/Non Drug Allergy documented on EMR Reaction Allergy Type Onset Date Status sulfacetamide Sulfacetamide Unknown Drug Allergy Active Penicillin Unknown Drug Allergy Active Results Component Value Reference Range Notes Complete Blood Count Auto Di ff Reviewed date:11/01/2023 08:39:11 PM Interpretation: Performing Lab:[facility], [address] [place] [phone] Notes/Report: White Blood Count 5.8 4.8-10.8 X10*3/uL [...] ff Reviewed date:11/29/2023 07:42:20 PM Interpretation: Performing Lab:[facility], [address] [place] [phone] Notes/Report: White Blood Count 5.8 4.8-10.8 X10*3/uL [...] ff Reviewed date:12/26/2023 09:20:33 AM Interpretation: Performing Lab:[facility], [address] [place] [phone] Notes/Report: White Blood Count 7.4 4.8-10.8 X10*3/uL [...] ff Reviewed date:01/27/2024 05:20:37 AM Interpretation: Performing Lab:[facility], [address] [place] [phone] Notes/Report: White Blood Count 6.2 4.8-10.8 X10*3/uL [...] Complete Blood Count Auto Di ff Reviewed date:02/18/2024 11:38:47 AM Interpretation: Performing Lab:[address] [phone] Notes/Report: White Blood Count 8.2 4.8-10.8 X10*3/uL Red Blood Count 3.61 4.20-5.50 X10*6/uL Hemoglobin 11.5 12.0-16.0 g/dl Hematocrit 36.5 37.0-47.0 % Mean Corpuscular Volume 101.1 80.0-98.0 fL Mean Corpuscular Hemoglobin 31.9 27.0-33.0 pg Mean Corpuscular HGB Conc 31.5 31.0-35.0 g/dl Red Cell Distribution Width 14.2 11.0-16.0 % Platelet Count 207 160-400 X10*3/uL Mean Platelet Volume 9.0 9.4-12.3 fL Neutrophils Percent Auto 72.4 45-73 % Imm Gran Pct Auto 0.4 0.0-0.4 % Lymphocytes Percent Auto 17.4 20-40 % Monocytes Percent Auto 8.6 2-11 % Eosinophils Percent Auto 0.6 0-4 % Basophils Percent Auto 0.6 0-2 % NRBC Pct Auto 0.0 0.0-0.2 /100WBC Neutrophils Absolute Auto 5.9 2.0-8.3 x10*3/u L Imm Gran Abs Auto 0.03 0.00-0.03 X10*3/uL Lymphocytes Absolute Auto 1.4 1.2-4.9 X10*3/u L Monocytes Absolute Auto 0.7 0.1-1.2 X10*3/uL Eosinophils Absolute Auto 0.1 0.0-0.4 X10*3/u L Basophils Absolute Auto 0.1 0.0-0.2 X10*3/uL NRBC Abs Auto 0.000 0.0-0.012 X10*3/uL Complete Blood Count Auto Di ff Reviewed date:03/15/2024 11:27:38 AM Interpretation: Performing Lab:[facility], [address] [place] [phone] Notes/Report: White Blood Count 5.9 4.8-10.8 X10*3/uL Red Blood Count 3.65 4.20-5.50 X10*6/uL Hemoglobin 11.8 12.0-16.0 g/dl Hematocrit 37.1 37.0-47.0 % Mean Corpuscular Volume 101.6 80.0-98.0 fL Mean Corpuscular Hemoglobin 32.3 27.0-33.0 pg Mean Corpuscular HGB Conc 31.8 31.0-35.0 g/dl Red Cell Distribution Width 14.2 11.0-16.0 % Platelet Count 201 160-400 X10*3/uL Mean Platelet Volume 8.9 9.4-12.3 fL Neutrophils Percent Auto 64.1 45-73 % Imm Gran Pct Auto 0.3 0.0-0.4 % Lymphocytes Percent Auto 23.2 20-40 % Monocytes Percent Auto 10.9 2-11 [...] Complete Blood Count Auto Di ff Reviewed date:04/08/2024 03:44:55 PM Interpretation: Performing Lab:[facility], [address] [place] [phone] Notes/Report: White Blood Count 6.4 4.8-10.8 X10*3/uL Red Blood Count 3.71 4.20-5.50 X10*6/uL Hemoglobin 12.0 12.0-16.0 g/dl Hematocrit 37.6 37.0-47.0 % Mean Corpuscular Volume 101.3 80.0-98.0 fL Mean Corpuscular Hemoglobin 32.3 27.0-33.0 pg Mean Corpuscular HGB Conc 31.9 31.0-35.0 g/dl Red Cell Distribution Width 14.5 11.0-16.0 % Platelet Count 217 160-400 X10*3/uL Mean Platelet Volume 8.7 9.4-12.3 fL Neutrophils Percent Auto 67.0 45-73 % Imm Gran Pct Auto 0.3 0.0-0.4 % Lymphocytes Percent Auto 21.5 20-40 % Monocytes Percent Auto 9.7 2-11 % Eosinophils Percent Auto 0.9 0-4 % Basophils Percent Auto 0.6 0-2 % NRBC Pct Auto 0.0 0.0-0.2 /100WBC Neutrophils Absolute Auto 4.3 2.0-8.3 x10*3/u L Imm Gran Abs Auto 0.02 0.00-0.03 X10*3/uL Lymphocytes Absolute Auto 1.4 1.2-4.9 X10*3/u L Monocytes Absolute Auto 0.6 0.1-1.2 X10*3/uL Eosinophils Absolute Auto 0.1 0.0-0.4 X10*3/u L Basophils Absolute Auto 0.0 0.0-0.2 X10*3/uL NRBC Abs Auto 0.000 0.0-0.012 X10*3/uL Complete Blood Count Auto Di ff Reviewed date:05/02/2024 07:51:00 PM Interpretation: Performing Lab:[facility], [address] [place] [phone] Notes/Report: White Blood Count 6.7 4.8-10.8 X10*3/uL Red Blood Count 3.47 4.20-5.50 X10*6/uL Hemoglobin 11.2 12.0-16.0 g/dl Hematocrit 35.5 37.0-47.0 % Mean Corpuscular Volume 102.3 80.0-98.0 fL Mean Corpuscular Hemoglobin 32.3 27.0-33.0 pg Mean Corpuscular HGB Conc 31.5 31.0-35.0 g/dl Red Cell Distribution Width 14.5 11.0-16.0 % Platelet Count 210 160-400 X10*3/uL Mean Platelet Volume 9.1 9.4-12.3 fL Neutrophils Percent Auto 70.4 45-73 % Imm Gran Pct Auto 0.4 0.0-0.4 % Lymphocytes Percent Auto 17.7 20-40 % Monocytes Percent Auto 10.4 2-11 % Eosinophils Percent Auto 0.7 0-4 % Basophils Percent Auto 0.4 0-2 % NRBC Pct Auto 0.0 0.0-0.2 /100WBC Neutrophils Absolute Auto 4.7 2.0-8.3 x10*3/u L Imm Gran Abs Auto 0.03 0.00-0.03 X10*3/uL Lymphocytes Absolute Auto 1.2 1.2-4.9 X10*3/u L Monocytes Absolute Auto 0.7 0.1-1.2 X10*3/uL Eosinophils Absolute Auto 0.1 0.0-0.4 X10*3/u L Basophils Absolute Auto 0.0 0.0-0.2 X10*3/uL NRBC Abs Auto 0.000 0.0-0.012 X10*3/uL Complete Blood Count Auto Di ff Reviewed date:05/28/2024 08:11:51 PM Interpretation: Performing Lab:[facility], [address] [place] [phone] Notes/Report: White Blood Count 6.4 4.8-10.8 X10*3/uL Red Blood Count 3.61 4.20-5.50 X10*6/uL Hemoglobin 11.7 12.0-16.0 g/dl Hematocrit 37.2 37.0-47.0 % Mean Corpuscular Volume 103.0 80.0-98.0 fL Mean Corpuscular Hemoglobin 32.4 27.0-33.0 pg Mean Corpuscular HGB Conc 31.5 31.0-35.0 g/dl Red Cell Distribution Width 13.9 11.0-16.0 % Platelet Count 218 160-400 X10*3/uL Mean Platelet Volume 8.8 9.4-12.3 fL Neutrophils Percent Auto 57.2 45-73 % Imm Gran Pct Auto 0.5 0.0-0.4 % Lymphocytes Percent Auto 30.3 20-40 % Monocytes Percent Auto 10.6 2-11 % Eosinophils Percent Auto 0.8 0-4 % Basophils Percent Auto 0.6 0-2 % NRBC Pct Auto 0.0 0.0-0.2 /100WBC Neutrophils Absolute Auto 3.7 2.0-8.3 x10*3/u L Imm Gran Abs Auto 0.03 0.00-0.03 X10*3/uL Lymphocytes Absolute Auto 2.0 1.2-4.9 X10*3/u L Monocytes Absolute Auto 0.7 0.1-1.2 X10*3/uL Eosinophils Absolute Auto 0.1 0.0-0.4 X10*3/u L Basophils Absolute Auto 0.0 0.0-0.2 X10*3/uL NRBC Abs Auto 0.000 0.0-0.012 X10*3/uL Complete Blood Count Auto Di ff Reviewed date:06/20/2024 08:47:21 PM Interpretation: Performing Lab:[facility], [address] [place] [phone] Notes/Report: White Blood Count 5.3 4.8-10.8 X10*3/uL Red Blood Count 3.52 4.20-5.50 X10*6/uL Hemoglobin 11.4 12.0-16.0 g/dl Hematocrit 35.3 37.0-47.0 % Mean Corpuscular Volume 100.3 80.0-98.0 fL Mean Corpuscular Hemoglobin 32.4 27.0-33.0 pg Mean Corpuscular HGB Conc 32.3 31.0-35.0 g/dl Red Cell Distribution Width 14.5 11.0-16.0 % Platelet Count 221 160-400 X10*3/uL Mean Platelet Volume 9.0 9.4-12.3 fL Neutrophils Percent Auto 53.9 45-73 % Imm Gran Pct Auto 0.4 0.0-0.4 % Lymphocytes Percent Auto 30.9 20-40 % Monocytes Percent Auto 12.9 2-11 % Eosinophils Percent Auto 1.3 0-4 % Basophils Percent Auto 0.6 0-2 [...] Complete Blood Count Auto Di ff Reviewed date:07/14/2024 09:33:35 AM Interpretation: Performing Lab:[facility], [address] [place] [phone] Notes/Report: White Blood Count 5.5 4.8-10.8 X10*3/uL Red Blood Count 3.52 4.20-5.50 X10*6/uL Hemoglobin 11.5 12.0-16.0 g/dl Hematocrit 35.5 37.0-47.0 % Mean Corpuscular Volume 100.9 80.0-98.0 fL Mean Corpuscular Hemoglobin 32.7 27.0-33.0 pg Mean Corpuscular HGB Conc 32.4 31.0-35.0 g/dl Red Cell Distribution Width 14.6 11.0-16.0 % Platelet Count 222 160-400 X10*3/uL Mean Platelet Volume 8.8 9.4-12.3 fL Neutrophils Percent Auto 56.2 45-73 % Imm Gran Pct Auto 0.4 0.0-0.4 % Lymphocytes Percent Auto 30.8 20-40 % Monocytes Percent Auto 10.8 2-11 % Eosinophils Percent Auto 1.1 0-4 % Basophils Percent Auto 0.7 0-2 [...] Complete Blood Count Auto Di ff Reviewed date:08/07/2024 02:06:03 PM Interpretation: Performing Lab:[facility], [address] [place] [phone] Notes/Report: White Blood Count 5.8 4.8-10.8 X10*3/uL Red Blood Count 3.55 4.20-5.50 X10*6/uL Hemoglobin 11.5 12.0-16.0 g/dl Hematocrit 36.3 37.0-47.0 % Mean Corpuscular Volume 102.3 80.0-98.0 fL Mean Corpuscular Hemoglobin 32.4 27.0-33.0 pg Mean Corpuscular HGB Conc 31.7 31.0-35.0 g/dl Red Cell Distribution Width 14.5 11.0-16.0 % Platelet Count 202 160-400 X10*3/uL Mean Platelet Volume 8.8 9.4-12.3 fL Neutrophils Percent Auto 62.3 45-73 % Imm Gran Pct Auto 0.5 0.0-0.4 % Lymphocytes Percent Auto 26.2 20-40 % Monocytes Percent Auto 9.8 2-11 % Eosinophils Percent Auto 0.9 0-4 % Basophils Percent Auto 0.3 0-2 [...] Complete Blood Count Auto Di ff Reviewed date:08/28/2024 11:04:41 AM Interpretation: Performing Lab:[facility], [address] [place] [phone] Notes/Report: White Blood Count 5.9 4.8-10.8 X10*3/uL Red Blood Count 3.60 4.20-5.50 X10*6/uL Hemoglobin 11.5 12.0-16.0 g/dl Hematocrit 36.3 37.0-47.0 % Mean Corpuscular Volume 100.8 80.0-98.0 fL Mean Corpuscular Hemoglobin 31.9 27.0-33.0 pg Mean Corpuscular HGB Conc 31.7 31.0-35.0 g/dl Red Cell Distribution Width 14.5 11.0-16.0 % Platelet Count 209 160-400 X10*3/uL Mean Platelet Volume 8.8 9.4-12.3 fL Neutrophils Percent Auto 60.5 45-73 % Imm Gran Pct Auto 0.3 0.0-0.4 % Lymphocytes Percent Auto 27.5 20-40 % Monocytes Percent Auto 10.2 2-11 % Eosinophils Percent Auto 0.8 0-4 % Basophils Percent Auto 0.7 0-2 % NRBC Pct Auto 0.0 0.0-0.2 /100WBC Neutrophils Absolute Auto 3.6 2.0-8.3 x10*3/u L Imm Gran Abs Auto 0.02 0.00-0.03 X10*3/uL Lymphocytes Absolute Auto 1.6 1.2-4.9 X10*3/u L Monocytes Absolute Auto 0.6 0.1-1.2 X10*3/uL Eosinophils Absolute Auto 0.1 0.0-0.4 X10*3/u L Basophils Absolute Auto 0.0 0.0-0.2 X10*3/uL NRBC Abs Auto 0.000 0.0-0.012 X10*3/uL Complete Blood Count Auto Di ff Reviewed date:09/17/2024 08:13:42 PM Interpretation: Performing Lab:[facility], [address] [place] [phone] Notes/Report: White Blood Count 6.0 4.8-10.8 X10*3/uL Red Blood Count 3.54 4.20-5.50 X10*6/uL Hemoglobin 11.4 12.0-16.0 g/dl Hematocrit 35.2 37.0-47.0 % Mean Corpuscular Volume 99.4 80.0-98.0 fL Mean Corpuscular Hemoglobin 32.2 27.0-33.0 pg Mean Corpuscular HGB Conc 32.4 31.0-35.0 g/dl Red Cell Distribution Width 14.6 11.0-16.0 % Platelet Count 193 160-400 X10*3/uL Mean Platelet Volume 8.5 9.4-12.3 fL Neutrophils Percent Auto 61.1 45-73 % Imm Gran Pct Auto 0.5 0.0-0.4 % Lymphocytes Percent Auto 27.2 20-40 % Monocytes Percent Auto 9.7 2-11 % Eosinophils Percent Auto 1.0 0-4 % Basophils Percent Auto 0.5 0-2 % NRBC Pct Auto 0.0 0.0-0.2 /100WBC Neutrophils Absolute Auto 3.6 2.0-8.3 x10*3/u L Imm Gran Abs Auto 0.03 0.00-0.03 X10*3/uL Lymphocytes Absolute Auto 1.6 1.2-4.9 X10*3/u L Monocytes Absolute Auto 0.6 0.1-1.2 X10*3/uL Eosinophils Absolute Auto 0.1 0.0-0.4 X10*3/u L Basophils Absolute Auto 0.0 0.0-0.2 X10*3/uL NRBC Abs Auto 0.000 0.0-0.012 X10*3/uL Complete Blood Count Auto Di ff Reviewed date:10/09/2024 09:52:49 AM Interpretation: Performing Lab:[facility], [address] [place] [phone] Notes/Report: White Blood Count 6.1 4.8-10.8 X10*3/uL Red Blood Count 3.65 4.20-5.50 X10*6/uL Hemoglobin 11.7 12.0-16.0 g/dl Hematocrit 37.4 37.0-47.0 % Mean Corpuscular Volume 102.5 80.0-98.0 fL Mean Corpuscular Hemoglobin 32.1 27.0-33.0 pg Mean Corpuscular HGB Conc 31.3 31.0-35.0 g/dl Red Cell Distribution Width 14.7 11.0-16.0 % Platelet Count 202 160-400 X10*3/uL Mean Platelet Volume 8.8 9.4-12.3 fL Neutrophils Percent Auto 60.3 45-73 % Imm Gran Pct Auto 0.3 0.0-0.4 % Lymphocytes Percent Auto 27.7 20-40 % Monocytes Percent Auto 9.7 2-11 % Eosinophils Percent Auto 1.3 0-4 % Basophils Percent Auto 0.7 0-2 [...] A DAY Orally twice a day Active Immunizations Vaccine Route Administration Date Status Comme nts Pneumococcal Unknown 06/16/2013 Administered patient ca lled and stated this is when she had the injection Pneumococcal Unknown 07/29/2014 Pending patient stat ed she had this injection done 06/16/2013 Social History Tobacco Use: Social History Observation Description Date Details (start date - stop date) Never Smoker NA - NA Sex Assigned At : Social History Observation Description Sex Assigned At Female Alcohol Screen Question Answer Notes Did you have a drink containing alcohol in the p ast year? No Points 0 Interpretation Negative Tobacco Control (Standard) Question Answer Notes Tobacco use: Nonsmoker Problems Problem Type SNOMED Code ICD Code Onset Dates Problem Status W/U Status Risk Notes Problem 931435291 Overweight (BMI 25.0-29.9) (E66.3) Active confirmed She has lost 18 pounds through diet and exercise. She remains only slightly overweight. I suggested she stabilize her weight at this level. Problem 69969843 Allergy to sulfa drugs (Z88.2) Active confirmed Problem Lupus anticoagulant disorder (32887164) Lupus anticoagulant syndrome (D68.62) Active confirmed She has had no symptoms of blood clots or emboli or bleeding.She remains anticoagulated. Problem 522820313 Anticoagulated (Z79.01) Active confirmed She was continued on current therapy. No change was made. Problem 41995305 ITP (idiopathic thrombocytopenic purpura) (D69.3) Active confirmed Her current platelet count is 202,000. She is stable at this time and no change in her therapy was needed. She will take 5 mg of prednisone daily. Her next visit will be in 3 weeks after a CBC. Problem 42850263 Essential hypertension (I10) Active confirmed She is managed by primary care and says her blood pressure has been in the normal range. Problem 068235811516583 History of herpes zoster (Z86.19) Active confirmed No treatment is required for this historical event. Problem 521882640 Allergy history, penicillin (Z88.0) Active confirmed Problem 92211017 Macrocytic anemia (D53.9) Active confirmed She is slowly developing anemia and macrocytosis. Her vitamin B12 and folic acid levels have been normal. Her reticulocyte count is unremarkable. She has had no bleeding. She'll be followed closely for possible myelodysplastic syndrome. Problem 391755879 Acute pulmonary embolism without acute cor pulmonale, unspecified pulmonary embolism type (I26.99) Active confirmed She has had no bleeding. She continues on her current therapy. Vital Signs Heart Rate 88 /min 2023 Temperature 97.5 degrees Fahrenheit 2023 Blood pressure diastolic 75 mm Hg 2023 Height 67.5 in 08/28/2024 Blood pressure systolic 132 mm Hg 2023 Weight 168 lbs 08/28/2024 BMI 25.92 kg/m2 08/28/2024 Encounters Encounter Location Date Provider Diagnosis Gage Day III, MD [address] [facility] [place] [id number] 2023 Gage Day ITP (idiopathic thrombocytopenic purpura) D69.3 ; Macrocytic anemia D53.9 ; Anticoagulated Z79.01 ; Lupus anticoagulant syndrome D68.62 ; Acute pulmonary embolism without acute cor pulmonale, unspecified pulmonary embolism type I26.99 and Overweight (BMI 25.0-29.9) E66.3 Gage Day III, MD [address] [place] [address] [place] [id number] 11/29/2023 Gage Day ITP (idiopathic thrombocytopenic purpura) D69.3 ; Essential hypertension I10 ; Anticoagulated Z79.01 ; Lupus anticoagulant syndrome D68.62 ; Acute pulmonary embolism without acute cor pulmonale, unspecified pulmonary embolism type I26.99 ; Macrocytic anemia D53.9 and Overweight (BMI 25.0-29.9) E66.3 Gage Day III, MD [address] [place] [address] [place] [id number] 12/27/2023 Gage Day ITP (idiopathic thrombocytopenic purpura) D69.3 ; Overweight E66.3 ; Essential hypertension I10 ; Lupus anticoagulant syndrome D68.62 and Acute pulmonary embolism without acute cor pulmonale, unspecified pulmonary embolism type I26.99 Gage Day III, MD [address] [place] [address] [place] [id number] 01/22/2024 Gage Day ITP (idiopathic thrombocytopenic purpura) D69.3 ; Essential hypertension I10 ; Overweight E66.3 ; Lupus anticoagulant syndrome D68.62 ; Acute pulmonary embolism without acute cor pulmonale, unspecified pulmonary embolism type I26.99 and Anticoagulated Z79.01 Ggae Day III, MD [address] [place] [address] [place] [id number] 02/21/2024 Gage Day ITP (idiopathic thrombocytopenic purpura) D69.3 ; Essential hypertension I10 ; Overweight E66.3 ; Lupus anticoagulant syndrome D68.62 and Acute pulmonary embolism without acute cor pulmonale, unspecified pulmonary embolism type I26.99 Gage Day III, MD [address] [place] [address] [place] [address] 03/13/2024 Gage Day ITP (idiopathic thrombocytopenic purpura) D69.3 ; Essential hypertension I10 ; Acute pulmonary embolism without acute cor pulmonale, unspecified pulmonary embolism type I26.99 ; Lupus anticoagulant syndrome D68.62 ; Anticoagulated Z79.01 and Overweight (BMI 25.0-29.9) E66.3 Gage Day III, MD [address] [place] [address] [place] [address] 04/07/2024 Gage Day ITP (idiopathic thrombocytopenic purpura) D69.3 ; Essential hypertension I10 ; Anticoagulated Z79.01 ; Lupus anticoagulant syndrome D68.62 ; Acute pulmonary embolism without acute cor pulmonale, unspecified pulmonary embolism type I26.99 and Allergy to sulfa drugs Z88.2 Gage Day III, MD [address] [place] [address] [place] [address] 05/01/2024 Gage Day ITP (idiopathic thrombocytopenic purpura) D69.3 ; Essential hypertension I10 ; Anticoagulated Z79.01 ; Lupus anticoagulant syndrome D68.62 ; Acute pulmonary embolism without acute cor pulmonale, unspecified pulmonary embolism type I26.99 ; Macrocytic anemia D53.9 and Overweight (BMI 25.0-29.9) E66.3 Gage Day III, MD [address] [place] [address] [place] [address] 05/28/2024 Gage Day ITP (idiopathic thrombocytopenic purpura) D69.3 ; Essential hypertension I10 ; Lupus anticoagulant syndrome D68.62 ; Acute pulmonary embolism without acute cor pulmonale, unspecified pulmonary embolism type I26.99 ; Anticoagulated Z79.01 ; Macrocytic anemia D53.9 and Overweight (BMI 25.0-29.9) E66.3 Gage Day III, MD [address] [place] [address] [place] [address] 06/19/2024 Gage Day ITP (idiopathic thrombocytopenic purpura) D69.3 ; Essential hypertension I10 ; Anticoagulated Z79.01 ; Lupus anticoagulant syndrome D68.62 and Overweight (BMI 25.0-29.9) E66.3 Gage Day III, MD [address] [place] [address] [place] [id number] 07/14/2024 Gage Day ITP (idiopathic thrombocytopenic purpura) D69.3 ; Essential hypertension I10 ; Lupus anticoagulant syndrome D68.62 ; Acute pulmonary embolism without acute cor pulmonale, unspecified pulmonary embolism type I26.99 ; Anticoagulated Z79.01 and Overweight (BMI 25.0-29.9) E66.3 Gage Day III, MD [address] [place] [address] [place] [id number] 08/07/2024 Gage Day ITP (idiopathic thrombocytopenic purpura) D69.3 ; Essential hypertension I10 ; Lupus anticoagulant syndrome D68.62 ; Acute pulmonary embolism without acute cor pulmonale, unspecified pulmonary embolism type I26.99 ; Anticoagulated Z79.01 and Overweight (BMI 25.0-29.9) E66.3 Gage Day III, MD [address] [place] [address] [place] [id number] 08/28/2024 Gage Day ITP (idiopathic thrombocytopenic purpura) D69.3 ; Essential hypertension I10 ; Lupus anticoagulant syndrome D68.62 ; Acute pulmonary embolism without acute cor pulmonale, unspecified pulmonary embolism type I26.99 ; Anticoagulated Z79.01 and Macrocytic anemia D53.9 Gage Day III, MD [address] [place] [address] [place] [id number] 09/18/2024 Gage Day ITP (idiopathic thrombocytopenic purpura) D69.3 ; Essential hypertension I10 ; History of herpes zoster Z86.19 ; Anticoagulated Z79.01 ; Lupus anticoagulant syndrome D68.62 ; Acute pulmonary embolism without acute cor pulmonale, unspecified pulmonary embolism type I26.99 and Overweight (BMI 25.0-29.9) E66.3 Gage Day III, MD [address] [place] [address] [place] [id number] 10/09/2024 Gage Day ITP (idiopathic thrombocytopenic purpura) D69.3 ; Essential hypertension I10 ; Macrocytic anemia D53.9 ; Anticoagulated Z79.01 ; Lupus anticoagulant syndrome D68.62 and Overweight (BMI 25.0-29.9) E66.3 Assessments Encounter Date Diagnosis (ICD Code) Assessment Notes T reatment Notes Treatment Clinical Notes 2023 ITP (idiopathic thrombocytopenic purpura) (ICD-10 - [...] has been in the normal range. 02/21/2024 ITP (idiopathic thrombocytopenic purpura) (ICD-10 - [...] has been in the normal range. 03/13/2024 ITP (idiopathic thrombocytopenic purpura) (ICD-10 - [...] has been in the normal range. 04/07/2024 ITP (idiopathic thrombocytopenic purpura) (ICD-10 - [...] has been in the normal range. 05/01/2024 ITP (idiopathic thrombocytopenic purpura) (ICD-10 - [...] has been in the normal range. 05/28/2024 ITP (idiopathic thrombocytopenic purpura) (ICD-10 - [...] has been in the normal range. 06/19/2024 ITP (idiopathic thrombocytopenic purpura) (ICD-10 - [...] has been in the normal range. 07/14/2024 ITP (idiopathic thrombocytopenic purpura) (ICD-10 - [...] has been in the normal range. 08/07/2024 ITP (idiopathic thrombocytopenic purpura) (ICD-10 - [...] has been in the normal range. 08/28/2024 ITP (idiopathic thrombocytopenic purpura) (ICD-10 - [...] has been in the normal range. 09/18/2024 ITP (idiopathic thrombocytopenic purpura) (ICD-10 - [...] has been in the normal range. 10/09/2024 ITP (idiopathic thrombocytopenic purpura) (ICD-10 - [...] has been in the normal range. 2023 Anticoagulated (ICD- 10 - Z79.01) She [...] weight and 1/2 pound per week. 02/21/2024 Overweight (ICD-10 - E66.3) We have discussed lifestyle modification in her diet and nutrition today. She will try to lose weight and 1/2 pound per week. 03/13/2024 Acute pulmonary embolism without acute cor pulmonale, unspecified pulmonary embolism type (ICD-10 - I26.99) She has had no bleeding. She continues on her current therapy. 04/07/2024 Anticoagulated (ICD- 10 - Z79.01) She was continued on current therapy. No change was made. 05/01/2024 Anticoagulated (ICD- 10 - Z79.01) She was continued on current therapy. No change was made. 05/28/2024 Lupus anticoagulant syndrome (ICD-10 - D68.62) She has had no symptoms of blood clots or emboli or bleeding.She remains anticoagulated. 06/19/2024 Anticoagulated (ICD- 10 - Z79.01) She was continued on current therapy. No change was made. 07/14/2024 Lupus anticoagulant syndrome (ICD-10 - D68.62) She has had no symptoms of blood clots or emboli or bleeding.She remains anticoagulated. 08/07/2024 Lupus anticoagulant syndrome (ICD-10 - D68.62) She has had no symptoms of blood clots or emboli or bleeding.She remains anticoagulated. 08/28/2024 Lupus anticoagulant syndrome (ICD-10 - D68.62) She has had no symptoms of blood clots or emboli or bleeding.She remains anticoagulated. 09/18/2024 History of herpes zoster (ICD-10 - Z86.19) No treatment is required for this historical event. 10/09/2024 Macrocytic anemia (ICD-10 - D53.9) She is slowly developing anemia and macrocytosis. Her vitamin B12 and folic acid levels have been normal. Her reticulocyte count is unremarkable. She has had no bleeding. She'll be followed closely for possible myelodysplastic syndrome. 2023 Lupus anticoagulant syndrome (ICD-10 - D68.62) [...] or emboli or bleeding.She remains anticoagulated. 02/21/2024 Lupus anticoagulant syndrome (ICD-10 - D68.62) She has had no symptoms of blood clots or emboli or bleeding.She remains anticoagulated. 03/13/2024 Lupus anticoagulant syndrome (ICD-10 - D68.62) She has had no symptoms of blood clots or emboli or bleeding.She remains anticoagulated. 04/07/2024 Lupus anticoagulant syndrome (ICD-10 - D68.62) She has had no symptoms of blood clots or emboli or bleeding.She remains anticoagulated. 05/01/2024 Lupus anticoagulant syndrome (ICD-10 - D68.62) She has had no symptoms of blood clots or emboli or bleeding.She remains anticoagulated. 05/28/2024 Acute pulmonary embolism without acute cor pulmonale, unspecified pulmonary embolism type (ICD-10 - I26.99) She has had no bleeding. She continues on her current therapy. 06/19/2024 Lupus anticoagulant syndrome (ICD-10 - D68.62) She has had no symptoms of blood clots or emboli or bleeding.She remains anticoagulated. 07/14/2024 Acute pulmonary embolism without acute cor pulmonale, unspecified pulmonary embolism type (ICD-10 - I26.99) She has had no bleeding. She continues on her current therapy. 08/07/2024 Acute pulmonary embolism without acute cor pulmonale, unspecified pulmonary embolism type (ICD-10 - I26.99) She has had no bleeding. She continues on her current therapy. 08/28/2024 Acute pulmonary embolism without acute cor pulmonale, unspecified pulmonary embolism type (ICD-10 - I26.99) She has had no bleeding. She continues on her current therapy. 09/18/2024 Anticoagulated (ICD- 10 - Z79.01) She was continued on current therapy. No change was made. 10/09/2024 Anticoagulated (ICD- 10 - Z79.01) She was continued on current therapy. No change was made. 2023 Acute pulmonary embolism without acute cor [...] bleeding. She continues on her current therapy. 02/21/2024 Acute pulmonary embolism without acute cor pulmonale, unspecified pulmonary embolism type (ICD-10 - I26.99) She has had no bleeding. She continues on her current therapy. 03/13/2024 Anticoagulated (ICD- 10 - Z79.01) She was continued on current therapy. No change was made. 04/07/2024 Acute pulmonary embolism without acute cor pulmonale, unspecified pulmonary embolism type (ICD-10 - I26.99) She has had no bleeding. She continues on her current therapy. 05/01/2024 Acute pulmonary embolism without acute cor pulmonale, unspecified pulmonary embolism type (ICD-10 - I26.99) She has had no bleeding. She continues on her current therapy. 05/28/2024 Anticoagulated (ICD- 10 - Z79.01) She was continued on current therapy. No change was made. 06/19/2024 Overweight (BMI 25.0-29.9) (ICD-10 - E66.3) She has lost 18 pounds through diet and exercise. She remains only slightly overweight. I suggested she stabilize her weight at this level. 07/14/2024 Anticoagulated (ICD- 10 - Z79.01) She was continued on current therapy. No change was made. 08/07/2024 Anticoagulated (ICD- 10 - Z79.01) She was continued on current therapy. No change was made. 08/28/2024 Anticoagulated (ICD- 10 - Z79.01) She was continued on current therapy. No change was made. 09/18/2024 Lupus anticoagulant syndrome (ICD-10 - D68.62) She has had no symptoms of blood clots or emboli or bleeding.She remains anticoagulated. 10/09/2024 Lupus anticoagulant syndrome (ICD-10 - D68.62) She has had no symptoms of blood clots or emboli or bleeding.She remains anticoagulated. 2023 Overweight (BMI 25.0-29.9) (ICD-10 - E66.3) [...] she stabilize her weight at this level. 04/07/2024 Allergy to sulfa edith gs (ICD-10 - Z88.2) 05/01/2024 Macrocytic anemia (ICD-10 - D53.9) She is slowly developing anemia and macrocytosis. Her vitamin B12 and folic acid levels have been normal. Her reticulocyte count is unremarkable. She has had no bleeding. She'll be followed closely for possible myelodysplastic syndrome. 05/28/2024 Macrocytic anemia (ICD-10 - D53.9) She is slowly developing anemia and macrocytosis. Her vitamin B12 and folic acid levels have been normal. Her reticulocyte count is unremarkable. She has had no bleeding. She'll be followed closely for possible myelodysplastic syndrome. 07/14/2024 Overweight (BMI 25.0-29.9) (ICD-10 - E66.3) She has lost 18 pounds through diet and exercise. She remains only slightly overweight. I suggested she stabilize her weight at this level. 08/07/2024 Overweight (BMI 25.0-29.9) (ICD-10 - E66.3) She has lost 18 pounds through diet and exercise. She remains only slightly overweight. I suggested she stabilize her weight at this level. 08/28/2024 Macrocytic anemia (ICD-10 - D53.9) She is slowly developing anemia and macrocytosis. Her vitamin B12 and folic acid levels have been normal. Her reticulocyte count is unremarkable. She has had no bleeding. She'll be followed closely for possible myelodysplastic syndrome. 09/18/2024 Acute pulmonary embolism without acute cor pulmonale, unspecified pulmonary embolism type (ICD-10 - I26.99) She has had no bleeding. She continues on her current therapy. 10/09/2024 Overweight (BMI 25.0-29.9) (ICD-10 - E66.3) She has lost 18 pounds through diet and exercise. She remains only slightly overweight. I suggested she stabilize her weight at this level. 11/29/2023 Overweight (BMI 25.0-29.9) (ICD-10 - E66.3) She has lost 18 pounds through diet and exercise. She remains only slightly overweight. I suggested she stabilize her weight at this level. 05/01/2024 Overweight (BMI 25.0-29.9) (ICD-10 - E66.3) She has lost 18 pounds through diet and exercise. She remains only slightly overweight. I suggested she stabilize her weight at this level. 05/28/2024 Overweight (BMI 25.0-29.9) (ICD-10 - E66.3) She has lost 18 pounds through diet and exercise. She remains only slightly overweight. I suggested she stabilize her weight at this level. 09/18/2024 Overweight (BMI 25.0-29.9) (ICD-10 - E66.3) She has lost 18 pounds through diet and exercise. She remains only slightly overweight. I suggested she stabilize her weight at this level. Plan Of Treatment Pending Test Test Name [...] 07/19/2023 Next Appt Details Provider Name:Gage Day, 10/30/2024 09:15:00 AM, [address] [place] [address] [address], [place], [address], Insurance Providers Payer Name Payer Address Payer Phone Subscriber Number Group Number Insured Name Patient Relationship to Insured Coverage Start Date Coverage End Date MEDICARE NGS [address] [place] [phone] [id number] Roseann Guido Self - patient is the insured [facility] [place] [address] [place], [place] [id number] [phone] [id number] Hay Roseann Self - patient is the insured Medical (General) History Medical History History ICD Code HTN (hypertension) 401.9 benign cyst right breast 2013 dental extraction without bleeding age 5 1 shingles 2012 sulfa allergy penicillin allergy Lupus anticoagulant, November 2019 Prolonged PTT due to inhibitor November 19 Multiple pulmonary emboli November 2019 ITP Compression fracture T119 July 2022 Surgical History Surgery Date(Month/Year) No history Colonoscopy, [facility], Dr. 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 Iliac c rest 05/2014 negative colonoscopy 2007 aspiration cyst right breast, benign apo crine cyst 12/2013 Hospitalization History Reason Date(Month/Year) No history
--- OUTSIDE RECORDS SUMMARY | 2024-10-29 07:55 | XMS_ITS | Patient Health Record ---
Author Organization [facility] Address [address] [place] [address] Care Team Providers Care C 13 Catapult Operator Name Role Phone Farheen (RETIRED) Sg EDWARDS Primary Care Provider Unavailable Gage Lizarraga Unavailable [phone] Allergies Allergen (clinical drug ingredient) Drug/Non Drug [...] Problem Status W/U Status Risk Notes Problem 410903670 Encounter for screening for malignant neoplasm of colon (Z12.11) Active confirmed Problem History of adenomatous polyp of colon (046701234) History of adenomatous polyp of colon (Z86.010) Active confirmed Problem History of polyp of colon (situation) (609464711) Personal history of colonic polyps (Z86.010) Active confirmed Problem Diverticular disease of colon (982854337) Diverticulosis of large intestine without perforation or abscess without bleeding (K57.30) Active confirmed Problem 839599144 Preprocedural examination (Z01.818) Active confirmed Problem Long-term current use of anticoagulant (353135206) Current use of shelter anticoagulation (Z79.01) Active confirmed Plan Of Treatment Future Test Test Name Order Date COLONOSCOPY 11/13/2016 COLONOSCOPY 06/11/2023 Insurance Providers Payer Name Payer Address Payer Phone Subscriber Number Group Number Insured Name Patient Relationship to Insured Coverage Start Date Coverage End Date MEDICARE OF [place] [address] [facility] [place] [address] [id number] SERG GUIDO Self - patient is the insured [facility] [address] [place], [place] [id number] SERG GUIDO Self - patient is the insured Medical (General) History Medical History History ICD Code Screening colonoscopy 05-27-19 08--no polyps; just diverticulosis and internal hemorrhoids Denies RI,DM,CVA,Lung disease,renal dise ase ITP--treated with prednisone and Rituxan --dx'd in 2014 HTN Pulmonary embolism-Dr. Day--uses Eliqu is Colonoscopy 07/2017 with a small rectal t ubular adenoma Vertebroplasty Surgical History Surgery Date(Month/Year)
[2024-10-29 08:00] LABS: MANUAL DIFF FLAG NO
[2024-10-29 08:48] LABS: Hematocrit 34.2 % (37.0-47.0); Hemoglobin 11.0 g/dl (12.0-16.0); Imm Gran Abs Auto 0.04 X10*3/uL (0.00-0.03); Imm Gran Pct Auto 0.7 % (0.0-0.4); Lymphocytes Absolute Auto 1.3 X10*3/uL (1.2-4.9); Mean Corpuscular HGB Conc 32.2 g/dl (31.0-35.0); Mean Corpuscular Hemoglobin 32.3 pg (27.0-33.0); Mean Corpuscular Volume 100.3 fL (80.0-98.0); NRBC Abs Auto 0.000 X10*3/uL (0.0-0.012); NRBC Pct Auto 0.0 /100WBC (0.0-0.2); Platelet Count 202 X10*3/uL (160-400); Red Blood Count 3.41 X10*6/uL (4.20-5.50); White Blood Count 6.1 X10*3/uL (4.8-10.8)
== END 2024-10-29 07:51 | disposition home or self-care (01) ==
LOC: HO.LAB 07:50
PROVIDERS: PCP Internal Medicine; Visit Provider Internal Medicine Medical Oncology
DX: D69.3 Immune thrombocytopenic purpura (principal)
CPT/HCPCS: 36415; 85025

== ENCOUNTER 2024-11-25 12:59 | Outpatient (REF) | payer MEDICARE, BC, SELFPAY ==
[2024-11-25 13:12] LABS: MANUAL DIFF FLAG NO
[2024-11-25 14:46] LABS: Hematocrit 37.2 % (37.0-47.0); Hemoglobin 11.8 g/dl (12.0-16.0); Imm Gran Abs Auto 0.10 X10*3/uL (0.00-0.03); Imm Gran Pct Auto 1.2 % (0.0-0.4); Lymphocytes Absolute Auto 1.2 X10*3/uL (1.2-4.9); Mean Corpuscular HGB Conc 31.7 g/dl (31.0-35.0); Mean Corpuscular Hemoglobin 32.2 pg (27.0-33.0); Mean Corpuscular Volume 101.6 fL (80.0-98.0); NRBC Abs Auto 0.000 X10*3/uL (0.0-0.012); NRBC Pct Auto 0.0 /100WBC (0.0-0.2); Platelet Count 220 X10*3/uL (160-400); Red Blood Count 3.66 X10*6/uL (4.20-5.50); White Blood Count 8.3 X10*3/uL (4.8-10.8)
== END 2024-11-25 13:00 | disposition home or self-care (01) ==
LOC: HO.LABR 12:59
PROVIDERS: PCP Internal Medicine; Visit Provider Internal Medicine Medical Oncology
DX: D69.3 Immune thrombocytopenic purpura (principal)
CPT/HCPCS: 36415; 85025

== ENCOUNTER 2024-12-25 07:19 | Outpatient (REF) | payer MEDICARE, BC, SELFPAY ==
--- OUTSIDE RECORDS SUMMARY | 2023-09-11 03:30 | XMS_ITS ---
Author Organization [facility] Address [address] [place] [address] Care Team Providers Care Porcelain Enameler Name Role Phone Farheen (RETIRED) Sg EDWARDS Primary Care Provider Unavailable Gage Lizarraga Unavailable [phone] REASON FOR VISIT screening,hx polyps Problems Problem Type SNOMED Code ICD Code Onset Dates Problem Status W/U Status Risk Notes Problem History of polyp of colon (situation) (313441688) Personal history of colonic polyps (Z86.010) Active confirmed Problem Diverticular disease of colon (187732938) Diverticulosis of large intestine without perforation or abscess without bleeding (K57.30) Active confirmed Encounters Encounter Location Date Provider Diagnosis [facility] [place] [address] [place] [phone] 09/11/2023 Gage Lizarraga Colon cancer scree javi [...] Notes * TRISTON GUIDO:1950 (74 yo F)Acc No.[id number]:09/11/2023 COLON WITH MAC Patient: SERG PIÑA Provider: Robyn Lizarraga MD :1950 A ge:72 Y S ex:Female Date:09/11/2023 Address:[address] [place], [place] [id number] Pcp:Sg Zhong (RETIRED) MD Subjective: * Chief Complaints: * 1 . Screening,hx polyps. * Medical History: Objective: * Vitals: Assessment: * Assessment: 1. C olon cancer screening - Z12.11 (Primary) 2 . P ersonal history of colonic polyps - Z86.010 3 . F amily history of colon cancer - Z80.0 ?4. D iverticulosis of large intestine without perforation or abscess without bleeding - K57.30 5. O ther hemorrhoids - K64.8 Plan: * Treatment: * Procedure Codes: G 0105 COLOREC CANCR SCR; COLNSCPY HI RISK, 0529F INTRVL 3+YRS PTS CLNSCP DOCD, 0528F RCMND FLW-UP 10 YRS DOCD, Modifiers: 1P * * The named appointment provid er may or may not be the originator of this progress note, and it is not deemed complete until electronically signed by the appointment provider. Sign off status: Pending * Provider: Robyn Lizarraga MD Date: 0 09/11/2023 Generated for Brendan lantigua/Chacho/Jyothiitting on: 02/25/2024 07:25 AM EST
--- OUTSIDE RECORDS SUMMARY | 2024-05-28 05:30 | XMS_ITS ---
Author Organization Gage Day III, MD Address [address] [place] [address] [place] [address] Care Team Providers Care Fish Hatchery Specialist Name Role Phone Eveline Gonzalez (Luis) Primary Care Provider Unavailable Dr. Gage Day III Unavailable Allergies Allergen (clinical drug ingredient) Drug/Non Drug Allergy documented on EMR Reaction Allergy Type Onset Date Status sulfacetamide Sulfacetamide Unknown Drug Allergy Active Penicillin Unknown Drug Allergy Active REASON FOR VISIT ITP, Thrombophilia, Lupus anticoagulant, History of pulmonary embolus Medications Medication SIG (Take, Route, Frequency, Duration) Notes Start Date End Date Status Eliquis 5 MG TAKE 1 TABLET BY CHRISTAL TH TWICE A DAY Orally twice a day Active predniSONE 1 MG TAKE 5 TABLETS BY MO [facility] ONCE DAILY WITH FOOD FOR [...] At Female Vital Signs Height 67.5 in 05/28/2024 Weight 168 lbs 05/28/2024 BMI 25.92 kg/m2 05/28/2024 Encounters Encounter Location Date Provider Diagnosis Gage Day III, MD [address] [place] [address] [place] [address] 05/28/2024 Gage Shay ITP (idiopathic thrombocytopenic purpura) D69.3 ; Essential hypertension I10 ; Lupus anticoagulant syndrome D68.62 ; Acute pulmonary embolism without acute cor pulmonale, unspecified pulmonary embolism type I26.99 ; Anticoagulated Z79.01 ; Macrocytic anemia D53.9 and Overweight (BMI 25.0-29.9) E66.3 Assessments Encounter Date Diagnosis (ICD Code) Assessment Notes T reatment Notes Treatment Clinical Notes 05/28/2024 ITP (idiopathic thrombocytopenic purpura) (ICD-10 - D69.3) Her current platelet count is 218,000. She is stable at this time and no change in her therapy was needed. She will no longer take a 3 day cycle of prednisone 5 mg, 5 mg, 2.5 mg. She will take 5 mg of prednisone daily. Her next visit will be in 3 weeks after the holidays after CBC. 05/28/2024 Essential hypertensi on (ICD-10 - I10) She is managed by primary care and says her blood pressure has been in the normal range. 05/28/2024 Lupus anticoagulant syndrome (ICD-10 - D68.62) She has had no symptoms of blood clots or emboli or bleeding.She remains anticoagulated. 05/28/2024 Acute pulmonary embolism without acute cor pulmonale, unspecified pulmonary embolism type (ICD-10 - I26.99) She has had no bleeding. She continues on her current therapy. 05/28/2024 Anticoagulated (ICD- 10 - Z79.01) She was continued on current therapy. No change was made. 05/28/2024 Macrocytic anemia (ICD-10 - D53.9) She is slowly developing anemia and macrocytosis. Her vitamin B12 and folic acid levels have been normal. Her reticulocyte count is unremarkable. She has had no bleeding. She'll be followed closely for possible myelodysplastic syndrome. 05/28/2024 Overweight (BMI 25.0-29.9) (ICD-10 - E66.3) She has lost 18 pounds through diet and exercise. She remains only slightly overweight. I suggested she stabilize her weight at this level. Plan Of Treatment Medication Medication Name Sig Start Date Stop Date Notes Eliquis 5 MG TAKE 1 TABLET BY TWICE A DAY Orally twice a day predniSONE 1 MG TAKE 5 TABLETS BY [facility] ONCE DAILY WITH FOOD FOR 30 DAYS Metoprolol Succinate ER 75 mg 1 tablet Orally Once a day Levothyroxine Sodium 50 MCG 1 capsule Orally Once a day Rosuvastatin Calcium 5 MG TAKE 1 TABLET BY MOUTH AT BEDTIME Oral Next Appt Details Follow Up: 3 Weeks, Reason: Telehealth Provider Name:Gage Day , 12/25/2024 09:45:00 AM, [address] [place] [address], [address], [place], [address], Progress Notes * Zakia GUIDOOB:1950 (73 yo F)Acc No.[id number]:05/28/2024 Patient: Roseann PIÑA Provider: Robyn Day MD :1950 A ge:73 Y S ex:Female Date:05/28/2024 Address:[address] [place] [address], [id number] Pcp:Sg Zhong MD Subjective: * Chief Complaints: * I TPThrombophiliaLupus anticoagulantHistory of pulmonary embolus * HPI: * : This telehealth visit took place over 15 min. with the patient at home and me in my office. She gave consent for billing. Her platelet count is 218,000. She is taking a three-day regimen of 5 mg of prednisone 5 mg of prednisone and then 7.5 mg. I have changed this to 5 mg a day with her consent. She will be seen back in 21 days for CBC. She has had no bleeding. She has no symptoms suggestive of a pulmonary embolism and DVT are blood clots in any location. Telehealth L ocation of provider rendering services: { ...} [address] [place] [address] Drive [address] [facility] [address] L ocation of patient: a ddress listed in demographics for today's visit P atient identification confirmed using: EDEN Solorzano ame T elehealth method: T elephone only. Patient not visible to care provider. C onsent: P atient verbally consented to treatment, Patient verbally consented to billing insurance company, Patient informed of any privacy concerns related to method of visit T otal time spent with patient (mins) 1 5 * ROS: G eneral/Constitutional: pain o nly normal aches and pains. C hills d enies.?Fatigue a dmits. F ever d enies. E NT: Decreased hearing d enies. R espiratory: Cough d enies. C ardiovascular: Chest pain with exertion d enies. D yspnea on exertion?denies. S hortness of breath d enies. G astrointestinal: Constipation o ccasional. D ecreased appetite d enies. D iarrhea d enies. H eartburn d enies. N ausea d enies. R ectal bleeding d enies. V omiting d enies. H ematology: bruising d enies. p etechiae d enies. S wollen glands n one have been noted. G enitourinary: Frequent urination a t night. M usculoskeletal: Muscle aches d enies. P ainful joints d enies. S ciatica d enies. W eakness d enies. S kin: Itching d enies. R mukul d enies. S kin lesion(s)?denies. N eurologic: Difficulty speaking d enies. D izziness d enies.?Headache d enies. L ow back pain d enies. P sychiatric: Depressed mood d enies. * Medical History: * Surgical History: a spiration cyst right breast, benign apocrine cyst 12/2013negative colonoscopy 2008bone marrow biopsy and aspirate. Iliac crest 05/2014Colonoscopy, [facility], Dr. 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 M other: 76 yrs. Her father of head and neck cancer. Her mother of colon cancer. She has no children. There is no family history of mental illness or substance abuse. * Medications: T akingEliquis 5 MG Tablet TAKE 1 TABLET BY MOUTH TWICE A DAY Orally twice a day predniSONE 1 MG Tablet TAKE 5 TABLETS [...] List reviewed and reconciled with the patientTaking Eliquis 5 MG Tablet TAKE 1 TABLET BY MOUTH TWICE A DAY Orally twice a day Taking predniSONE 1 MG Tablet TAKE 5 TABLETS [...] reviewed and reconciled with the patient * Allergies: P enicillinSulfacetamideno[Allergies Verified] Objective: * Vitals: H t: 67.5, Wt:168, BMI:25.92, Ht-cm: 171.45, Wt-k.2. Assessment: * Assessment: 1. I TP (idiopathic thrombocytopenic purpura) - D69.3 (Primary) N otes :Her current platelet count is 218,000. She is stable at this time and no change in her therapy was needed. She will no longer take a 3 day cycle of prednisone 5 mg, 5 mg, 2.5 mg. She will take 5 mg of prednisone daily. Her next visit will be in 3 weeks after the holidays after CBC. 2 . E ssential hypertension - I10 N otes :She is managed by primary care and says her blood pressure has been in the normal range. 3 . L upus anticoagulant syndrome - D68.62 N otes :She has had no symptoms of blood clots or emboli or bleeding.She remains anticoagulated. 4 . A cute pulmonary embolism without acute cor pulmonale, unspecified pulmonary embolism type - I26.99 N otes :She has had no bleeding. She continues on her current therapy. 5 . A nticoagulated - Z79.01 N otes :She was continued on current therapy. No change was made. 6 . M acrocytic anemia - D53.9 N otes :She is slowly developing anemia and macrocytosis. Her vitamin B12 and folic acid levels have been normal. Her reticulocyte count is unremarkable. She has had no bleeding. She'll be followed closely for possible myelodysplastic syndrome. 7 . O verweight (BMI 25.0-29.9) - E66.3 N otes :She has lost 18 pounds through diet and exercise. She remains only slightly overweight. I suggested she stabilize her weight at this level. Plan: * Treatment: 2. O thers Continue Eliquis Tablet, 5 MG, TAKE 1 TABLET BY MOUTH TWICE A DAY, Orally, twice a day; C ontinue predniSONE Tablet, 1 MG, TAKE 5 TABLETS BY MOUTH ONCE DAILY WITH FOOD FOR 30 DAYS. * Procedure Codes: * Preventive Medicine: Counseling: C are goal follow-up plan: Counseling for abnormal BMI given Y es Above Normal BMI Follow-up D ietary management education, guidance, and counseling, Dietary needs education * Follow Up: 3 Weeks (Reason: Telehealth) * Images: * Sign off status: Completed true * Provider: Robyn Day MD Date: 0 05/28/2024 Generated for Brendan lantigua/Chacho/Nicole on: 1 02/25/2024 07:24 AM EST History and Physical Notes * HPI (History of Present Illness) Category Sub-Category Detail Notes Telehealth Location of [facility] rendering services:: {...} [address] [place], [place] [id number] Location of patient:: address listed in demographics [...]
--- OUTSIDE RECORDS SUMMARY | 2024-06-19 04:30 | XMS_ITS ---
Author Organization Gage Day III, MD Address [address] [place] [address] [place] [address] Care Team Providers Care Carpenter Streetcar Name Role Phone Eveline Gonzalez (Luis) Primary [...] 1 MG TAKE 5 TABLETS BY MO [facility] ONCE DAILY WITH FOOD FOR 30 [...] Date Provider Diagnosis Gage Day III, MD [address] [place] [address] [place] [address] 06/19/2024 Gage Day ITP (idiopathic thrombocytopenic purpura) [...] Weeks, Reason: ov Provider Name:Gage Day , 12/25/2024 09:45:00 AM, [address] [place] [address] [address], [place], [address], Progress Notes * Zakia GUIDOOB:1950 (73 yo F)Acc No.[id number]:06/19/2024 Patient: Roseann PIÑA Provider: Robyn Day MD :1950 A ge:73 Y S ex:Female Date:06/19/2024 Address:[address] [place], [place] [address], [id number] Pcp:Sg Zhong MD Subjective: * Chief Complaints: [...] of provider rendering services: { ...} [facility] [address] [place] [address] L ocation of patient: marcos quezada listed [...] marrow biopsy and aspirate. Iliac crest 05/2014Colonoscopy, [facility] [place], Dr. Morel, sessile serrated [...] MD Date: 0 06/19/2024 Generated for Brendan lantigua/Chacho/Nicole on: 02/25/2024 07:24 AM EST History and Physical Notes * HPI (History of Present Illness) Category Sub-Category Detail Notes Telehealth Location of [facility] rendering services:: {...} [address] [place] [address] Location of patient:: address listed in demographics [...]
--- OUTSIDE RECORDS SUMMARY | 2024-07-14 04:15 | XMS_ITS ---
Author Organization Gage Day III, MD Address [address] [place] [address] [address] [place] [address] Care Team Providers Care Cook Camp Name Role Phone Eveline Gonzalez (Luis) Primary Care Provider Unavailable Dr. Gage Day III Unavailable [phone] Allergies Allergen (clinical drug ingredient) Drug/Non Drug [...] Date Provider Diagnosis Gage Day III, MD [address] [place] [address] [address] SHINDAL[address]A, [place] [address] 07/14/2024 Gage Day ITP (idiopathic thrombocytopenic purpura) [...] Provider Name:Gage Day , 12/25/2024 09:45:00 AM, [address] [place] [address], [address], [place], [address], Progress Notes * Zakia GUIDOOB:1950 (73 yo F)Acc No.[id number]:07/14/2024 Patient: Roseann PIÑA Provider: Robyn Day MD :1950 A ge:73 Y S ex:Female Date:07/14/2024 Address:[address] [place] [address], [facility], [id number] Pcp:Sg Zhong MD Subjective: * Chief Complaints: [...] ocation of provider rendering services: { ...} [address] [place] [address] Drive [address] [facility] [address] L ocation of patient: a ddress listed [...] marrow biopsy and aspirate. Iliac crest 05/2014Colonoscopy, [facility] [place], Dr. Morel, sessile serrated polypoid adenoma with [...] 0 07/14/2024 Generated for Brendan lantigua/Chacho/Nicole on: 02/25/2024 07:23 AM EST History and Physical Notes * HPI (History of Present Illness) Category Sub-Category Detail Notes Telehealth Location of prov ider rendering services:: {...} [address] [facility] [address] Location of patient:: address listed in demographics [...]
--- OUTSIDE RECORDS SUMMARY | 2024-08-07 06:30 | XMS_ITS ---
Author Organization Gage Day III, MD Address [address] [place] [address] [address] [place] [address] Care Team Providers Care Radar Technician Name Role Phone Eveline Gonzalez (Luis) Primary Care Provider Unavailable Dr. Gage Day III Unavailable Allergies Allergen (clinical drug ingredient) Drug/Non Drug Allergy documented on EMR Reaction Allergy Type Onset Date Status sulfacetamide Sulfacetamide Unknown Drug Allergy Active Penicillin Unknown Drug Allergy Active REASON FOR VISIT ITP, Thrombocytopenia, History of pulmonary embolism, Hypertension, Lupus anticoagulants, Chronically anticoagulated Medications Medication SIG (Take, Route, Frequency, Duration) Notes Start Date End Date Status predniSONE 1 MG TAKE 5 TABLETS BY MO [facility] ONCE DAILY WITH FOOD FOR 30 DAYS Active Metoprolol Succinate ER 75 mg 1 tablet Orally Once a day Active Levothyroxine Sodium 50 MCG 1 capsule Or ally Once a day Active Rosuvastatin Calcium 5 MG TAKE 1 TABLET BY MOUTH AT BEDTIME Oral Active Eliquis 5 MG TAKE 1 TABLET BY CHRISTAL TH TWICE A DAY Orally twice a day Active Social History Tobacco Use: Social History Observation Description Date Details (start date - stop date) Never Smoker NA - NA Sex Assigned At : Social History Observation Description Sex Assigned At Female Tobacco Control (Standard) Question Answer Notes Tobacco use: Nonsmoker Vital Signs Height 67.5 in 08/07/2024 Weight 168 lbs 08/07/2024 BMI 25.92 kg/m2 08/07/2024 Encounters Encounter Location Date Provider Diagnosis Gage Day III, MD [address] [place] [address] DR MENDOZA, [place]EMANTH [address] 08/07/2024 Gage Day ITP (idiopathic thrombocytopenic purpura) D69.3 ; Essential hypertension I10 ; Lupus anticoagulant syndrome D68.62 ; Acute pulmonary embolism without acute cor pulmonale, unspecified pulmonary embolism type I26.99 ; Anticoagulated Z79.01 and Overweight (BMI 25.0-29.9) E66.3 Assessments Encounter Date Diagnosis (ICD Code) Assessment Notes Treat ment Notes Treatment Clinical Notes 08/07/2024 ITP (idiopathic thrombocytopenic purpura) (ICD-10 - D69.3) Her current platelet count is 202,000. She is stable at this time and no change in her therapy was needed. She will take 5 mg of prednisone daily. Her next visit will be in 3 weeks after a CBC. 08/07/2024 Essential hypertensi on (ICD-10 - I10) She is managed by primary care and says her blood pressure has been in the normal range. 08/07/2024 Lupus anticoagulant syndrome (ICD-10 - D68.62) She has had no symptoms of blood clots or emboli or bleeding.She remains anticoagulated. 08/07/2024 Acute pulmonary embolism without acute cor pulmonale, unspecified pulmonary embolism type (ICD-10 - I26.99) She has had no bleeding. She continues on her current therapy. 08/07/2024 Anticoagulated (ICD- 10 - Z79.01) She was continued on current therapy. No change was made. 08/07/2024 Overweight (BMI 25.0-29.9) (ICD-10 - E66.3) She [...] MOUTH AT BEDTIME Oral Eliquis 5 MG TAKE 1 TABLET BY CHRISTAL TH TWICE A DAY Orally twice a day Next Appt Details Follow Up: 3 Weeks, Reason: Telehealth Provider Name:Gage Day , 12/25/2024 09:45:00 AM, [address] [place] [address], [address], [place], [address], Progress Notes * Zakia GUIDOOB:1950 (73 yo F)Acc No.[id number]:08/07/2024 Patient: Roseann PIÑA Provider: Robyn Day MD :1950 A ge:73 Y S ex:Female Date:08/07/2024 Address:[address] [place] [address] , [facility], [id number] Pcp:Sg Zhong MD Subjective: * Chief Complaints: * I TPThrombocytopeniaHistory of pulmonary embolismHypertensionLupus anticoagulantsChronically anticoagulated * HPI: * : This telehealth visit took place over 15 minutes with the patient at home and me in my office. She gave consent for billing. She has had a CBC and her platelet count is within normal limits. She has been continued on the prednisone without a change in dose. She has had no bleeding. She has been compliant with her anticoagulation. She has had no signs of clotting. She is breathing comfortably. Follow-up visit after CBC in 3 weeks was arranged. Telehealth L ocation of provider rendering services: { ...} [address] [place] [address] [address] [facility] [address] L ocation of patient: a ddress listed in demographics for today's visit P atient identification confirmed using: N EDEN martinez T elehealth method: T elephone only. Patient [...] marrow biopsy and aspirate. Iliac crest 05/2014Colonoscopy, [facility] [place] Dr. Morel, sessile serrated polypoid adenoma with [...] Count Aut o Diff * Collection Date 08/06/2024 07/14/2024 06/18/2024 Collection Time 07:37 AM 07:18 AM 07:30 AM 07:11 AM Order Date 08/06/2024 07/14/2024 06/18/2024 05/27/2024 White Blood Count 5.8 (Ref Range: 4.8-10.8 X10*3/uL) 5.5 (Ref Range: 4.8-10.8 X10*3/uL) 5.3 (Ref Range: 4.8-10.8 X10*3/uL) 6.4 (Ref Range: 4.8-10.8 X10*3/uL) Red Blood Count 3.55 L (Ref Range: 4.20-5.50 X10*6/uL) 3.52 L (Ref Range: 4.20-5.50 X10*6/uL) 3.52 L (Ref Range: 4.20-5.50 X10*6/uL) 3.61 L (Ref Range: 4.20-5.50 X10*6/uL) Hemoglobin 11.5 L (Ref Range: 12.0-16.0 g/dl) 11.5 L (Ref Range: 12.0-16.0 g/dl) 11.4 L (Ref Range: 12.0-16.0 g/dl) 11.7 L (Ref Range: 12.0-16.0 g/dl) Hematocrit 36.3 L (Ref Range: 37.0-47.0 %) 35.5 L (Ref Range: 37.0-47.0 %) 35.3 L (Ref Range: 37.0-47.0 %) 37.2 (Ref Range: 37.0-47.0 %) Mean Corpuscular Volume 102.3 H (Ref Range: 80.0-98.0 fL) 100.9 H (Ref Range: 80.0-98.0 fL) 100.3 H (Ref Range: 80.0-98.0 fL) 103.0 H (Ref Range: 80.0-98.0 fL) Mean Corpuscular Hemoglobin 32.4 (Ref Range: 27.0-33.0 pg) 32.7 (Ref Range: 27.0-33.0 pg) 32.4 (Ref Range: 27.0-33.0 pg) 32.4 (Ref Range: 27.0-33.0 pg) Mean Corpuscular HGB Conc 31.7 (Ref Range: 31.0-35.0 g/dl) 32.4 (Ref Range: 31.0-35.0 g/dl) 32.3 (Ref Range: 31.0-35.0 g/dl) 31.5 (Ref Range: 31.0-35.0 g/dl) Red Cell Distribution Width 14.5 (Ref Range: 11.0-16.0 %) 14.6 (Ref Range: 11.0-16.0 %) 14.5 (Ref Range: 11.0-16.0 %) 13.9 (Ref Range: 11.0-16.0 %) Platelet Count 202 (Ref Range: 160-400 X10*3/uL) 222 (Ref Range: 160-400 X10*3/uL) 221 (Ref Range: 160-400 X10*3/uL) 218 (Ref Range: 160-400 X10*3/uL) Mean Platelet Volume 8.8 L (Ref Range: 9.4-12.3 fL) 8.8 L (Ref Range: 9.4-12.3 fL) 9.0 L (Ref Range: 9.4-12.3 fL) 8.8 L (Ref Range: 9.4-12.3 fL) Neutrophils Percent Auto 62.3 (Ref Range: 45-73 %) 56.2 (Ref Range: 45-73 %) 53.9 (Ref Range: 45-73 %) 57.2 (Ref Range: 45-73 %) Imm Gran Pct Auto 0.5 H (Ref Range: 0.0-0.4 %) 0.4 (Ref Range: 0.0-0.4 %) 0.4 (Ref Range: 0.0-0.4 %) 0.5 H (Ref Range: 0.0-0.4 %) Lymphocytes Percent Auto 26.2 (Ref Range: 20-40 %) 30.8 (Ref Range: 20-40 %) 30.9 (Ref Range: 20-40 %) 30.3 (Ref Range: 20-40 %) Monocytes Percent Auto 9.8 (Ref Range: 2-11 %) 10.8 (Ref Range: 2-11 %) 12.9 H (Ref Range: 2-11 %) 10.6 (Ref Range: 2-11 %) Eosinophils Percent Auto 0.9 (Ref Range: 0-4 %) 1.1 (Ref Range: 0-4 %) 1.3 (Ref Range: 0-4 %) 0.8 (Ref Range: 0-4 %) Basophils Percent Auto 0.3 (Ref Range: 0-2 %) 0.7 (Ref Range: 0-2 %) 0.6 (Ref Range: 0-2 %) 0.6 (Ref Range: 0-2 %) NRBC Pct Auto 0.0 (Ref Range: 0.0-0.2 /100WBC) 0.0 (Ref Range: 0.0-0.2 /100WBC) 0.0 (Ref Range: 0.0-0.2 /100WBC) 0.0 (Ref Range: 0.0-0.2 /100WBC) Neutrophils Absolute Auto 3.6 (Ref Range: 2.0-8.3 x10*3/uL) 3.1 (Ref Range: 2.0-8.3 x10*3/uL) 2.8 (Ref Range: 2.0-8.3 x10*3/uL) 3.7 (Ref Range: 2.0-8.3 x10*3/uL) Imm Gran Abs Auto 0.03 (Ref Range: 0.00-0.03 X10*3/uL) 0.02 (Ref Range: 0.00-0.03 X10*3/uL) 0.02 (Ref Range: 0.00-0.03 X10*3/uL) 0.03 (Ref Range: 0.00-0.03 X10*3/uL) Lymphocytes Absolute Auto 1.5 (Ref Range: 1.2-4.9 X10*3/uL) 1.7 (Ref Range: 1.2-4.9 X10*3/uL) 1.6 (Ref Range: 1.2-4.9 X10*3/uL) 2.0 (Ref Range: 1.2-4.9 X10*3/uL) Monocytes Absolute Auto [...] N otes :Her current platelet count is 202,000. She is stable at this time and [...] * Provider: Robyn Day MD Date: 0 08/07/2024 Generated for Brendan lantigua/Chacho/Nicole on: 02/25/2024 07:23 AM EST History and Physical Notes * HPI (History of Present Illness) Category Sub-Category Detail Notes Telehealth Location of [facility] rendering services:: {...} [address] [facility] [address] Location of patient:: address listed in demographics [...]
--- OUTSIDE RECORDS SUMMARY | 2024-08-28 05:00 | XMS_ITS ---
Author Organization Gage Day III, MD Address [address] [place] [address] [address] [place] [address] Care Team Providers Care Cook Helper Name Role Phone Eveline Gonzalez (uLis) Primary Care Provider Unavailable Dr. Gage Day [...] Provider Diagnosis Gage Day III, MD [address] [place] [address] [address], [address] [phone] 08/28/2024 Gage Day ITP (idiopathic thrombocytopenic purpura) [...] Up: 3 Weeks, Reason: ov Provider Name:Gage Shannon Day , 12/25/2024 09:45:00 AM, [address] [place] [address] [address], [place], [phone], Progress Notes * Zakia GUIDOOB:1950 (73 yo F)Acc No.[id number]:08/28/2024 Patient: Roseann PIÑA Provider: Robyn Day MD :1950 A ge:73 Y S ex:Female Date:08/28/2024 Address:[address] [place] [address] [facility] [place], [phone] Pcp:Sg Zhong MD Subjective: * Chief Complaints: [...] ocation of provider rendering services: { ...} [address] [place] [address] Drive [address] [facility] [address] L ocation of patient: a ddress listed [...] marrow biopsy and aspirate. Iliac crest 05/2014[place] [facility] [place], sessile serrated polypoid adenoma with [...] MD Date: 0 08/28/2024 Generated for Brendan lantigua/Chacho/Jyothiitting on: 1 02/25/2024 07:24 AM EST History and Physical Notes * HPI (History of Present Illness) Category Sub-Category Detail Notes Telehealth Location of [facility] rendering services:: {...} [address] [place] [address] [place] [id number] Location of patient:: address listed in demographics [...]
--- OUTSIDE RECORDS SUMMARY | 2024-09-18 05:30 | XMS_ITS ---
Author Organization Gage Day III, MD Address [address] [place] [address] [place] [address] Care Team Providers Care A Class Lineman Name Role Phone Eveline Gonzalez (Luis) Primary Care Provider Unavailable Dr. Gage Day III Unavailable [phone] Allergies Allergen (clinical drug ingredient) Drug/Non Drug Allergy documented on EMR Reaction Allergy Type Onset Date Status sulfacetamide Sulfacetamide Unknown Drug Allergy Active Penicillin Unknown Drug Allergy Active REASON FOR VISIT ITP, Coagulopathy, History of pulmonary embolism, Anticoagulated, Lupus anticoagulant, Hypertension Medications Medication SIG (Take, Route, Frequency, Duration) Notes Start Date End Date Status Rosuvastatin Calcium 5 MG TAKE 1 TABLET BY MOUTH AT BEDTIME Oral Active Metoprolol Succinate ER 75 mg 1 tablet Orally Once a day Active Levothyroxine Sodium 50 MCG 1 capsule Or ally Once a day Active Eliquis 5 MG [...] (Standard) Question Answer Notes Tobacco use: Nonsmoker Encounters Encounter Location Date Provider Diagnosis Gage Day III, MD [address] [place] [address] [place] [address] 09/18/2024 Gage Erazorne ITP (idiopathic thrombocytopenic purpura) D69.3 ; Essential hypertension I10 ; History of herpes zoster Z86.19 ; Anticoagulated Z79.01 ; Lupus anticoagulant syndrome D68.62 ; Acute pulmonary embolism without acute cor pulmonale, unspecified pulmonary embolism type I26.99 and Overweight (BMI 25.0-29.9) E66.3 Assessments Encounter Date Diagnosis (ICD Code) Assessment Notes Treat ment Notes Treatment Clinical Notes 09/18/2024 ITP (idiopathic thrombocytopenic purpura) (ICD-10 - D69.3) Her current platelet count is 193,000. She is stable at this time and no change in her therapy was needed. She will take 5 mg of prednisone daily. Her next visit will be in 3 weeks after a CBC. 09/18/2024 Essential hypertensi on (ICD-10 - I10) She is managed by primary care and says her blood pressure has been in the normal range. 09/18/2024 History of herpes zoster (ICD-10 - Z86.19) No treatment is required for this historical event. 09/18/2024 Anticoagulated (ICD- 10 - Z79.01) She was continued on current therapy. No change was made. 09/18/2024 Lupus anticoagulant syndrome (ICD-10 - D68.62) She has had no symptoms of blood clots or emboli or bleeding.She remains anticoagulated. 09/18/2024 Acute pulmonary embolism without acute cor pulmonale, unspecified pulmonary embolism type (ICD-10 - I26.99) She has had no bleeding. She continues on her current therapy. 09/18/2024 Overweight (BMI 25.0-29.9) (ICD-10 - E66.3) She has lost 18 pounds through diet and exercise. She remains only slightly overweight. I suggested she stabilize her weight at this level. Plan Of Treatment Medication Medication Name Sig Start Date Stop Date Notes Rosuvastatin Calcium 5 MG TAKE 1 TABLET BY MOUTH AT BEDTIME Oral Metoprolol Succinate ER 75 mg 1 tablet Orally Once a day Levothyroxine Sodium 50 MCG 1 capsule Orally Once a day Eliquis 5 MG TAKE 1 TABLET BY CHRISTAL TH TWICE A DAY Orally twice a day predniSONE 1 MG TAKE 5 TABLETS BY MO UTH ONCE DAILY WITH FOOD FOR 30 DAYS Next Appt Details Follow Up: 3 Weeks, Reason: Telehealth Provider Name:Gage Day , 12/25/2024 09:45:00 AM, [address] [place] [address], [address], [place], [address], Progress Notes * Zakia GUIDOOB:1950 (73 yo F)Acc No.[id number]:09/18/2024 Patient: Roseann PIÑA Provider: Robyn Day MD :1950 A ge:73 Y S ex:Female Date:09/18/2024 Address:[address] [place] [address] [facility] [id number] Pcp:Eveline Gonzalez ([place]) Subjective: * Chief Complaints: * I TPCoagulopathyHistory of pulmonary embolismAnticoagulatedLupus anticoagulantHypertension * HPI: * : This is a scheduled visit to manage her platelet count and monitor her anticoagulation for thrombophilia. She has had no symptoms are clotting or bleeding. Her platelet count is 193,000. Her current dose of prednisone was continued without change. In 3 weeks she will have a repeat CBC and another office visit. She will avoid trauma. Telehealth L ocation of provider rendering services: { ...} [address] [place] [address] Drive [address] [facility] [address] L ocation of patient: a ddress listed [...] have been noted. G enitourinary: Frequent urination d enies. M usculoskeletal: Muscle aches d enies. P [...] marrow biopsy and aspirate. Iliac crest 05/2014Colonoscopy, [facility], Dr. Morel, sessile serrated [...] Allergies: P enicillinSulfacetamideno[Allergies Verified] Objective: * Vitals: Assessment: * Assessment: 1. I TP (idiopathic thrombocytopenic purpura) - D69.3 (Primary) N otes :Her current platelet count is 193,000. She is stable at this time and no change in her therapy was needed. She will take 5 mg of prednisone daily. Her next visit will be in 3 weeks after a CBC. 2 . E ssential hypertension - I10 N otes :She is managed by primary care and says her blood pressure has been in the normal range. 3 . H istory of herpes zoster - Z86.19 N otes :No treatment is required for this historical event. 4 . A nticoagulated - Z79.01 N otes :She was continued on current therapy. No change was made. 5 . L upus anticoagulant syndrome - D68.62 N otes :She has had no symptoms of blood clots or emboli or bleeding.She remains anticoagulated. 6 . A cute pulmonary embolism without acute cor pulmonale, unspecified pulmonary embolism type - I26.99 N otes :She has had no bleeding. She continues on her current therapy. 7 . O verweight (BMI 25.0-29.9) - [...] * Provider: Robyn Day MD Date: 0 09/18/2024 Generated for Efraini ng/Chacho/eTransmitting on: 02/25/2024 07:25 AM EST History and Physical Notes * HPI (History of Present Illness) Category Sub-Category Detail Notes Telehealth Location of [facility] rendering services:: {...} [address] [place] [address] [place] [address] Location of patient:: address listed in demographics [...]
--- OUTSIDE RECORDS SUMMARY | 2024-10-09 04:30 | XMS_ITS ---
Author Organization Gage Day III, MD Address [address] [place] [address] [place] [address] Care Team Providers Care Scientific Illustrator Name Role Phone Eveline Gonzalez (Luis) Primary [...] 1 MG TAKE 5 TABLETS BY MO [facility] ONCE DAILY WITH FOOD [...] Provider Diagnosis Gage Day III, MD [address] [place] [address] [place] [address] 10/09/2024 Gage Day ITP (idiopathic thrombocytopenic purpura) [...] Provider Name:Gage Day , 12/25/2024 09:45:00 AM, [address] [place] [address] DR, [address], [place], [address], Progress Notes * Zakia GUIDOOB:1950 (73 yo F)Acc No.[id number]:10/09/2024 Patient: Roseann PIAÑ Provider: Robyn Day MD :1950 A ge:73 Y S ex:Female Date:10/09/2024 Address:[address] [place] [address] [address]BR[address], [id number] Pcp:Eveline VillarrealHarrison ValleyAngelica Gonzalez Subjective: * Chief Complaints: * I [...] ocation of provider rendering services: { ...} [address] [place] [address] Drive [address] [facility] [address] L ocation of patient: a ddress listed [...] marrow biopsy and aspirate. Iliac crest 05/2014Colonoscopy, [facility] [place], Dr. Morel, sessile serrated polypoid adenoma with [...] 0 10/09/2024 Generated for Brendan lantigua/Chacho/Jyothiitting on: 02/25/2024 07:24 AM EST History and Physical Notes * HPI (History of Present Illness) Category Sub-Category Detail Notes Telehealth Location of [facility] rendering services:: {...} [address] [place] [address] Location of patient:: address listed in demographics [...]
--- OUTSIDE RECORDS SUMMARY | 2024-10-30 04:15 | XMS_ITS ---
Author Organization Gage Day III, MD Address [address] [place] [address] [address] [place] [address] Care Team Providers Care Medical Receptionist Name Role Phone Eveline Gonzalez (Luis) Primary [...] Problem Status W/U Status Risk Notes Problem 744556739 Overweight (E66.3) Active confirmed We have discussed lifestyle modification in her diet and nutrition today. She will try to lose weight and 1/2 pound per week. Vital Signs Height 67.5 in 10/30/2024 Weight 168 lbs 10/30/2024 BMI 25.92 kg/m2 10/30/2024 Encounters Encounter Location Date Provider Diagnosis Gage Day III, MD [address] [place] [address] [address], [place] [address] 10/30/2024 Gage Day ITP (idiopathic thrombocytopenic purpura) [...] Provider Name:Gage Day , 12/25/2024 09:45:00 AM, [address] [place] [address] [address], [place], [address], Progress Notes * Zakia GUIDOOB:1950 (73 yo F)Acc No.[id number]:10/30/2024 Patient: Roseann PIÑA Provider: Robyn Day MD :1950 A ge:73 Y S ex:Female Date:10/30/2024 Address:[address] [place] [address] [address], [id number] Pcp:Eveline Singerfield) O'alba Subjective: * Chief Complaints: [...] of provider rendering services: { ...} [address] [place] [address] [address] [facility] [address] L ocation of patient: marcos ddress listed [...] 0 10/30/2024 Generated for Brendan lantigua/Chacho/Jyothiitting on: 02/25/2024 07:23 AM EST History and Physical Notes * HPI (History of Present Illness) Category Sub-Category Detail Notes Telehealth Location of [facility] rendering services:: {...} [address] [place] [address] Location of patient:: address listed in demographics [...]
--- OUTSIDE RECORDS SUMMARY | 2024-11-27 04:30 | XMS_ITS ---
Author Organization Gage Day III, MD Address [address] [place] [address] [address] [place] [address] Care Team Providers Care Medical Coordinator Pesticide Use Name Role Phone Eveline Gonzalez (Luis) Primary Care Provider Unavailable Dr. Gage Day III Unavailable Allergies Allergen (clinical drug ingredient) Drug/Non Drug Allergy documented on EMR Reaction Allergy Type Onset Date Status sulfacetamide Sulfacetamide Unknown Drug Allergy Active Penicillin Unknown Drug Allergy Active REASON FOR VISIT Idiopathic thrombocytopenic purpura, History of pulmonary embolism, Chronic anticoagulation, Lupus anticoagulant syndrome, Macrocytic anemia Medications Medication SIG (Take, Route, Frequency, Duration) Notes Start Date End Date Status Eliquis 5 MG TAKE 1 TABLET BY CHRISTAL TH TWICE A DAY Orally twice a day Active Metoprolol Succinate ER 75 mg 1 tablet Orally Once a day Active predniSONE 1 MG TAKE 5 TABLETS BY MO NCH ONCE DAILY WITH FOOD FOR 30 DAYS Active Levothyroxine Sodium 50 MCG 1 capsule [...] Answer Notes Tobacco use: Nonsmoker Vital Signs Temperature 97.9 degrees Fahrenheit 11/28/19 25 Blood pressure systolic 134 mm Hg 11/28/19 25 Blood pressure diastolic 79 mm Hg 025 Heart Rate 67 /min 11/27/2024 Height 67.5 in 11/27/2024 Weight 181 lbs 11/27/2024 BMI 27.93 kg/m2 11/27/2024 Encounters Encounter Location Date Provider Diagnosis Gage Day III, MD [address] [place] [address] [place] [address] 11/27/2024 Gage Day ITP (idiopathic thrombocytopenic purpura) D69.3 ; Overweight E66.3 ; Essential hypertension I10 ; Acute pulmonary embolism without acute cor pulmonale, unspecified pulmonary embolism type I26.99 ; Lupus anticoagulant syndrome D68.62 ; Anticoagulated Z79.01 and Macrocytic anemia D53.9 Assessments Encounter Date Diagnosis (ICD Code) Assessment Notes Treat ment Notes Treatment Clinical Notes 11/27/2024 ITP (idiopathic thrombocytopenic purpura) (ICD-10 - D69.3) Her current platelet count is 220,000. She is stable at this time and no change in her therapy was needed. She will take 5 mg of prednisone daily. Her next visit will be in 3 weeks after a CBC. 11/27/2024 Overweight (ICD-10 - E66.3) We have discussed lifestyle modification in her diet and nutrition today. She will try to lose weight and 1/2 pound per week. 11/27/2024 Essential hypertensi on (ICD-10 - I10) She is managed by primary care and says her blood pressure has been in the normal range. 11/27/2024 Acute pulmonary embolism without acute cor pulmonale, unspecified pulmonary embolism type (ICD-10 - I26.99) She has had no bleeding. She continues on her current therapy. 11/27/2024 Lupus anticoagulant syndrome (ICD-10 - D68.62) She has had no symptoms of blood clots or emboli or bleeding.She remains anticoagulated. 11/27/2024 Anticoagulated (ICD- 10 - Z79.01) She was continued on current therapy. No change was made. 11/27/2024 Macrocytic anemia (ICD-10 - D53.9) Her values are stable today. His hematocrit is 37% and the mean cell volume elevated at 101.6. This is being evaluated but is not progressive. Plan Of Treatment Medication Medication Name Sig Start Date Stop Date Notes Eliquis 5 MG TAKE 1 TABLET BY CHRISTAL TH TWICE A DAY Orally twice a day Metoprolol Succinate ER 75 mg 1 tablet Orally Once a day predniSONE 1 MG TAKE 5 TABLETS BY MO UTH ONCE DAILY WITH FOOD FOR 30 DAYS Levothyroxine Sodium 50 MCG 1 capsule Orally Once a day Rosuvastatin Calcium 5 MG TAKE 1 TABLET BY MOUTH AT BEDTIME Oral Next Appt Details Follow Up: 4 Weeks, Reason: Telehealth Provider Name:Gage Day , 12/25/2024 09:45:00 AM, [address] [place] [address] , [place] [address], [place], [address], Progress Notes * Zakia GUIDOOB:1950 (74 yo F)Acc No.[id number]:11/27/2024 Progress Notes Patient: Roseann PIÑA Provider: Robyn Day MD :1950 A ge:74 Y S ex:Female Date:11/27/2024 Address:[address] [place] [address] DR [id number] Pcp:Eveline VillarrealDiamond) Sydnee'alba Subjective: * Chief Complaints: * I diopathic thrombocytopenic purpuraHistory of pulmonary embolismChronic anticoagulationLupus anticoagulant syndromeMacrocytic anemia * HPI: C OVID-19 Screening: She returns for an office visit to manage her numerous hematological abnormalities. She remains anticoagulated without clotting or bleeding. Her platelet count has been stable on a minimal dose of prednisone. She has no new complaints. Her blood pressure was stable. No change in her regimen was made today. Questions H ave you had any new onset fever, chills, cough, congestion, sore throat, shortness of breath, muscle aches? N o * ROS: G eneral/Constitutional: pain o nly [...] Verified] Objective: * Vitals: H t: 67.5, Wt:181, BMI:27.93, BP:134/79, HR:67, Temp:97.9, Ht-cm: 171.45, Wt-k.1. * P ast Orders: Lab:Complete Blood Count Aut o Diff * Collection Date 11/25/2024 10/29/2024 10/09/2024 09/17/2024 08/28/2024 Collection Time 01:10 PM 08:00 AM 07:38 AM 07:39 AM 07:2 3 AM Order Date 11/25/2024 10/29/2024 10/09/2024 09/17/202408/28 White Blood Count 8.3 (Ref Range: 4.8-10.8 X10*3/uL) 6.1 (Ref Range: 4.8-10.8 X10*3/uL) 6.1 (Ref Range: 4.8-10.8 X10*3/uL) 6.0 (Ref Range: 4.8-10.8 X10*3/uL) 5.9 (Ref Range: 4.8-10.8 X10*3/uL) Red Blood Count 3.66 L (Ref Range: 4.20-5.50 X10*6/uL) 3.41 L (Ref Range: 4.20-5.50 X10*6/uL) 3.65 L (Ref Range: 4.20-5.50 X10*6/uL) 3.54 L (Ref Range: 4.20-5.50 X10*6/uL) 3.60 L (Ref Range: 4.20-5.50 X10*6/uL) Hemoglobin 11.8 L (Ref Range: 12.0-16.0 g/dl) 11.0 L (Ref Range: 12.0-16.0 g/dl) 11.7 L (Ref Range: 12.0-16.0 g/dl) 11.4 L (Ref Range: 12.0-16.0 g/dl) 11.5 L (Ref Range: 12.0-16.0 g/dl) Hematocrit 37.2 (Ref Range: 37.0-47.0 %) 34.2 L (Ref Range: 37.0-47.0 %) 37.4 (Ref Range: 37.0-47.0 %) 35.2 L (Ref Range: 37.0-47.0 %) 36.3 L (Ref Range: 37.0-47.0 %) Mean Corpuscular Volume 101.6 H (Ref Range: 80.0-98.0 fL) 100.3 H (Ref Range: 80.0-98.0 fL) 102.5 H (Ref Range: 80.0-98.0 fL) 99.4 H (Ref Range: 80.0-98.0 fL) 100.8 H (Ref Range: 80.0-98.0 fL) Mean Corpuscular Hemoglobin 32.2 (Ref Range: 27.0-33.0 pg) 32.3 (Ref Range: 27.0-33.0 pg) 32.1 (Ref Range: 27.0-33.0 pg) 32.2 (Ref Range: 27.0-33.0 pg) 31.9 (Ref Range: 27.0-33.0 pg) Mean Corpuscular HGB Conc 31.7 (Ref Range: 31.0-35.0 g/dl) 32.2 (Ref Range: 31.0-35.0 g/dl) 31.3 (Ref Range: 31.0-35.0 g/dl) 32.4 (Ref Range: 31.0-35.0 g/dl) 31.7 (Ref Range: 31.0-35.0 g/dl) Red Cell Distribution Width 14.6 (Ref Range: 11.0-16.0 %) 14.7 (Ref Range: 11.0-16.0 %) 14.7 (Ref Range: 11.0-16.0 %) 14.6 (Ref Range: 11.0-16.0 %) 14.5 (Ref Range: 11.0-16.0 %) Platelet Count 220 (Ref Range: 160-400 X10*3/uL) 202 (Ref Range: 160-400 X10*3/uL) 202 (Ref Range: 160-400 X10*3/uL) 193 (Ref Range: 160-400 X10*3/uL) 209 (Ref Range: 160-400 X10*3/uL) Mean Platelet Volume 9.3 L (Ref Range: 9.4-12.3 fL) 8.9 L (Ref Range: 9.4-12.3 fL) 8.8 L (Ref Range: 9.4-12.3 fL) 8.5 L (Ref Range: 9.4-12.3 fL) 8.8 L (Ref Range: 9.4-12.3 fL) Neutrophils Percent Auto 77.3 H (Ref Range: 45-73 %) 65.8 (Ref Range: 45-73 %) 60.3 (Ref Range: 45-73 %) 61.1 (Ref Range: 45-73 %) 60.5 (Ref Range: 45-73 %) Imm Gran Pct Auto 1.2 H (Ref Range: 0.0-0.4 %) 0.7 H (Ref Range: 0.0-0.4 %) 0.3 (Ref Range: 0.0-0.4 %) 0.5 H (Ref Range: 0.0-0.4 %) 0.3 (Ref Range: 0.0-0.4 %) Lymphocytes Percent Auto 14.4 L (Ref Range: 20-40 %) 22.0 (Ref Range: 20-40 %) 27.7 (Ref Range: 20-40 %) 27.2 (Ref Range: 20-40 %) 27.5 (Ref Range: 20-40 %) Monocytes Percent Auto 6.5 (Ref Range: 2-11 %) 10.2 (Ref Range: 2-11 %) 9.7 (Ref Range: 2-11 %) 9.7 (Ref Range: 2-11 %) 10.2 (Ref Range: 2-11 %) Eosinophils Percent Auto 0.1 (Ref Range: 0-4 %) 1.0 (Ref Range: 0-4 %) 1.3 (Ref [...] (Ref Range: 0.0-0.2 /100WBC) Neutrophils Absolute Auto 6.4 (Ref Range: 2.0-8.3 x10*3/uL) 4.0 (Ref Range: 2.0-8.3 x10*3/uL) 3.7 (Ref Range: 2.0-8.3 x10*3/uL) 3.6 (Ref Range: 2.0-8.3 x10*3/uL) 3.6 (Ref Range: 2.0-8.3 x10*3/uL) Imm Gran Abs Auto 0.10 H (Ref Range: 0.00-0.03 X10*3/uL) 0.04 H (Ref Range: 0.00-0.03 X10*3/uL) 0.02 (Ref Range: 0.00-0.03 X10*3/uL) 0.03 (Ref Range: 0.00-0.03 X10*3/uL) 0.02 (Ref Range: 0.00-0.03 X10*3/uL) Lymphocytes Absolute Auto 1.2 (Ref Range: 1.2-4.9 X10*3/uL) 1.3 (Ref Range: 1.2-4.9 X10*3/uL) 1.7 (Ref Range: 1.2-4.9 X10*3/uL) 1.6 (Ref Range: 1.2-4.9 X10*3/uL) 1.6 (Ref Range: 1.2-4.9 X10*3/uL) Monocytes Absolute Auto 0.5 (Ref Range: 0.1-1.2 X10*3/uL) 0.6 (Ref Range: 0.1-1.2 X10*3/uL) 0.6 (Ref Range: 0.1-1.2 X10*3/uL) 0.6 (Ref Range: 0.1-1.2 X10*3/uL) 0.6 (Ref Range: 0.1-1.2 X10*3/uL) Eosinophils Absolute Auto 0.0 (Ref Range: 0.0-0.4 X10*3/uL) 0.1 (Ref [...] X10*3/uL) 0.000 (Ref Range: 0.0-0.012 X10*3/uL) * Examination: G eneral Examination: GENERAL APPEARANCE: p leasant, well nourished, well developed, in no acute distress, calm and relaxed: overweight: woman. HEAD: a traumatic, normocephalic. EYES: e jenn, perrla, anicteric, conjugate. EARS: n ormal. NOSE: s eptum intact. ORAL CAVITY: n ormal, unremarkable. NECK/THYROID: n o jugular venous distention, no carotid bruit, thyroid normal. LYMPH NODES: n o enlarged lymph nodes,spleen normal. SKIN: n o suspicious lesions, anicteric, No petechiae or purpura. HEART: n o clicks, gallops, murmurs, or rubs, regular rhythm, S1, S2 normal, no s3, or vascular bruits. LUNGS: c lear to auscultation . BREASTS: N ot examined. ABDOMEN: b owel sounds normal, no ascites, no organomegaly, no mass: overweight. RECTAL EXAM: n ot examined. MUSCULOSKELETAL: e xtremities unremarkable, no clubbing, cyanosis or edema. PERIPHERAL PULSES: n ormal. NEUROLOGIC: a lert and oriented, cranial nerves 2-12 grossly intact, deep tendon reflexes 2+ symmetrical, motor strength normal upper and lower extremities, sensory exam intact. PSYCH: a lert, oriented. Assessment: * Assessment: 1. I TP (idiopathic thrombocytopenic purpura) - D69.3 (Primary) N otes :Her current platelet count is 220,000. She is stable at this time and [...] and 1/2 pound per week. 3 . E ssential hypertension - I10 N otes :She is managed by primary care and says her blood pressure has been in the normal range. 4 . A cute pulmonary embolism without acute cor pulmonale, unspecified pulmonary embolism type - I26.99 N otes :She has had no bleeding. She continues on her current therapy. 5 . L upus anticoagulant syndrome - D68.62 N otes :She has had no symptoms of blood clots or emboli or bleeding.She remains anticoagulated. 6 . A nticoagulated - Z79.01 N otes :She was continued on current therapy. No change was made. 7 . M acrocytic anemia - D53.9 N otes :Her values are stable today. His hematocrit is 37% and the mean cell volume elevated at 101.6. This is being evaluated but is not progressive. Plan: * Treatment: 2. O thers Continue [...] education, guidance, and counseling * Follow Up: 4 Weeks (Reason: Telehealth) * Images: * Sign off status: Completed true * Provider: Robyn Day MD Date: Generated for Brendan lantigua/Chacho/Nicole on: 02/25/2024 07:24 AM EST History and Physical Notes * HPI (History of Present Illness) Category Sub-Category Detail Notes COVID-19 Screening Questions Have you had any new onset fever, chills, cough, congestion, sore throat, shortness of breath, muscle aches?: No Examination Category Sub-Category Detail Notes General Examination GENERAL APPEARANCE: pleasant , well nourished, well developed, in no acute distress, calm and relaxed: overweight: woman HEAD: atraumatic, normocep halic EYES: eomi, perrla, anicte mary, conjugate EARS: normal NOSE: septum intact NECK/THYROID: no jugular venous di stention, no carotid bruit, thyroid normal HEART: no clicks, gallops, murmurs, or rubs, regular rhythm, S1, S2 normal, no s3, or vascular bruits LUNGS: clear to auscultatio n ABDOMEN: bowel sounds normal, no ascites, no organomegaly, no mass: overweight NEUROLOGIC: alert and oriented, cranial nerves 2-12 grossly intact, deep tendon reflexes 2+ symmetrical, motor strength normal upper and lower extremities, sensory exam intact SKIN: no suspicious lesion s, anicteric, No petechiae or purpura PERIPHERAL PULSES: normal BREASTS: Not examined MUSCULOSKELETAL: extremities unremark able, no clubbing, cyanosis or edema LYMPH NODES: no enlarged lymph no daryl,spleen normal RECTAL EXAM: not examined PSYCH: alert, oriented ORAL CAVITY: normal, unremarkable
--- OUTSIDE RECORDS SUMMARY | 2024-12-25 04:45 | XMS_ITS ---
Author Organization Gage Day III, MD Address [address] [place] [address] [place] [address] Care Team Providers Care Special Education Math Teacher Name Role Phone Eveline Gonzalez) Primary Care Provider Unavailable Dr. Gage Day III Unavailable REASON FOR VISIT Telehealth Social History Sex Assigned At : Social History Observation Description Sex Assigned At Female Encounters Encounter Location Date Provider Diagnosis Gage Day III, MD [address] [place] [address] [place] [address] 12/25/2024 Gage Day Plan Of Treatment Next Appt Details Provider Name:Gage Day , 12/25/2024 09:45:00 AM, [address] [place] [address] [place], [address], Progress Notes * Zakia GUIDOOB:1950 (74 yo F)Acc No.[id number]:12/25/2024 Patient: Roseann PIÑA Provider: Robyn Day MD :1950 A ge:74 Y S ex:Female Date:12/25/2024 Address:[address] [place] [address] [id number] Pcp:Eveline Gonzalez ([place]) Subjective: * Chief Complaints: * 1 . Telehealth. * Medical History: Objective: * Vitals: Assessment: Plan: * Treatment: * Images: * The named appointment provid er may or may not be the originator of this progress note, and it is not deemed complete until electronically signed by the appointment provider. Sign off status: Pending * Provider: Robyn Day MD Date: 02/25/2024 Generated for Brendan lantigua/Chacho/Nicole on: 02/25/2024 07:24 AM EST
--- OUTSIDE RECORDS SUMMARY | 2024-12-25 07:25 | XMS_ITS | Clinical Summary ---
Author Organization [facility] Address [address] [place] [address] Phone Care Team Providers Care Transfer And Line Up Worker Name Role Phone Sg Zhong MD Primary Care Provider [phone] Surgical History Surgery Date Site/Laterality Comments BREAST [...] 01/06/2024 7:15 AM EST Plan of Treatment Upcoming Encounters Date Type Department Care Team (Late st Contact Info) Description 01/21/2025 8:30 AM EST Appointment [facility] [address] [place] [address] Health Maintenance Due Date Last Done Comments Colorectal Cancer Screening: Colonoscopy 1950 DTaP,Tdap,and Td Vaccines (1 - Tdap) 11/05/1971 Pneumococcal Vaccine: 50+ Years (1 of 1 - PCV) 2002 Zoster Vaccines (1 of 2) 2002 Falls Risk Assessment 01/21/2022 Hepatitis C Screening 01/21/2022 Medicare Annual Wellness Visit 01/21/2022 Social Influencers of Health Screening 01/21/2022 Depression Screening 02/19/2024 COVID-19 Vaccine ( season) 2024 Influenza Vaccine (#1) 2024 Breast [...] Mammography at [facility], [address] [place] [address], [address], . -------- FINAL REPORT -------- Dictated By: Kaity Jackson Dictated Date: 01/06/2024 08:14 ET Assigned Physician: Kaity Jackson Reviewed and Electronically Signed By: Kaity Jackson Signed Date: 01/06/2024 08:15 ET Workstation ID: [id number] Transcribed By: Self Edit Transcribed Date: 01/06/2024 08:14 ET Narrative 01/06/2024 8:15 AM EST HISTORY: Screening. Right breast biopsy in 2013, pathology benign. COMPARISON: 12/25/22, 12/21/22, 07/04/21, 09/21/19, 10/04/17 TECHNIQUE: Bilateral digital breast tomosynthesis was performed in the CC and MLO projections. Computer aided detection with [employer] AI 3D 3.1 was employed. BREAST DENSITY: [...] CCand MLO projections. Computer aided detection with [employer]D [employer] AI 3D 3.1was employed. BREAST DENSITY: B [...] Mammography at [facility], [address] [place] [address], [address], . -------- FINAL REPORT -------- Dictated By: Kaity Jackson Dictated Date: 01/06/2024 08:14 ET Assigned Physician: Kaity Jackson Reviewed and Electronically Signed By: Kaity Jackson Signed Date: 01/06/2024 08:15 ET Workstation ID: [id number] Transcribed By: Self Edit Transcribed Date: 01/06/2024 08:14 ET us Sg Zhong MD IMG BI PROCEDURES Final Result * [facility] DEXA AXIAL SKELETON (08/22/2022 11:35 AM EDT) Anatomical Region Laterality Modality Mammography 08/22/2022 9:55 AM EDT Narrative 08/22/2022 11:[address] [facility] Diagnostic Imaging Department [address] [place] [address] Patient: ROSEANN GUIDO./Age/Sex: 1950 - 71 - F Unit#: [id number] [facility] CLI Mnemonic[facility] Ordering Physician: ELLEN DAY MD Tejal Dexa Axial Skeleton - 08/22/22 - 1043 Report Status:Signed HISTORY: The patient is a [...] probability of hip fracture of 6.9%. Code 86479 Dictating Physician: RODNEY IRELAND MD Electronically Signed by: RODNEY IRELAND MD Dic Date/Time: 08/22/22 1134 Sign date/Time: 08/22/22 1135 Procedure Note Rodney Ireland MD - 03/26/2023 [facility] Diagnostic Imaging Department [address] [place] [address] Patient: ROSEANN GUIDO./Age/Sex: 1950 - 71 - F Unit#: [id number] Location/Status: [facility] CLI Mnemonic[facility] Ordering Physician: ELLEN DAY MD [...] density of the femurs bilaterally is 0.903 gm/[id number] is 90% of that of young normals [...] probability of hip fracture of 6.9%. Code 21933 Dictating Physician: RODNEY IRELAND MD Electronically Signed by: RODNEY IRELAND MD Dic Date/Time: 08/22/22 1134 Sign date/Time: 08/22/22 1135 Ellen Day MD IMG BI PROCEDURES Final Result from Last 3 Months or Most Recently Relevant to [place] [id number] MEDICARE [facility] Care Teams Transfer And Line Up Worker Relationship Specialty Start Date End Date Sg Zhong MD [address] [place] [address] HEMAN[place] Mulligan PCP - General Internal Medicine 12/11/23
--- OUTSIDE RECORDS SUMMARY | 2024-12-25 07:25 | XMS_ITS | Patient Health Record ---
Author Organization Gage Day III, MD Address [address] [place] [address] [address] [place] [address] Care Team Providers Care Instrument Repairer Name Role Phone Eveline Gonzalez (Luis) Primary Care Provider Unavailable Dr. Gage Day III Unavailable Allergies Allergen (clinical drug ingredient) Drug/Non Drug Allergy documented on EMR Reaction Allergy Type Onset Date Status sulfacetamide Sulfacetamide Unknown Drug Allergy Active Penicillin Unknown Drug Allergy Active Results Component Value Reference Range Notes Complete Blood Count Auto Di ff Reviewed date:01/27/2024 05:20:37 AM Interpretation: Performing Lab:[facility], [address] [place] [address] Notes/Report: White Blood Count 6.2 4.8-10.8 X10*3/uL [...] ff Reviewed date:02/18/2024 11:38:47 AM Interpretation: Performing Lab:[facility], [address] [place] [phone] Notes/Report: White Blood Count 8.2 4.8-10.8 X10*3/uL [...] ff Reviewed date:03/15/2024 11:27:38 AM Interpretation: Performing Lab:[facility], [address] [place] [phone] Notes/Report: White Blood Count 5.9 4.8-10.8 X10*3/uL [...] ff Reviewed date:04/08/2024 03:44:55 PM Interpretation: Performing Lab:[facility], [address] [place] [phone] Notes/Report: White Blood Count 6.4 4.8-10.8 X10*3/uL [...] ff Reviewed date:05/02/2024 07:51:00 PM Interpretation: Performing Lab:[address] [phone] Notes/Report: White Blood Count 6.7 4.8-10.8 X10*3/uL [...] ff Reviewed date:05/28/2024 08:11:51 PM Interpretation: Performing Lab:[facility], [address] [place] [phone] Notes/Report: White Blood Count 6.4 4.8-10.8 X10*3/uL [...] ff Reviewed date:06/20/2024 08:47:21 PM Interpretation: Performing Lab:[facility], [address] [place] [phone] Notes/Report: White Blood Count 5.3 4.8-10.8 X10*3/uL [...] ff Reviewed date:07/14/2024 09:33:35 AM Interpretation: Performing Lab:[facility], [address] [place] [phone] Notes/Report: White Blood Count 5.5 4.8-10.8 X10*3/uL [...] ff Reviewed date:08/07/2024 02:06:03 PM Interpretation: Performing Lab:[facility], [address] [place] [phone] Notes/Report: White Blood Count 5.8 4.8-10.8 X10*3/uL [...] ff Reviewed date:08/28/2024 11:04:41 AM Interpretation: Performing Lab:[facility], [address] [place] [phone] Notes/Report: White Blood Count 5.9 4.8-10.8 X10*3/uL [...] ff Reviewed date:09/17/2024 08:13:42 PM Interpretation: Performing Lab:[facility], [address] [place] [phone] Notes/Report: White Blood Count 6.0 4.8-10.8 X10*3/uL [...] ff Reviewed date:10/09/2024 09:52:49 AM Interpretation: Performing Lab:[facility], [address] [place] [phone] Notes/Report: White Blood Count 6.1 4.8-10.8 X10*3/uL [...] Complete Blood Count Auto Di ff Reviewed date:10/30/2024 05:45:17 AM Interpretation: Performing Lab:[facility], [address] [place] [phone] Notes/Report: White Blood Count 6.1 4.8-10.8 X10*3/uL Red Blood Count 3.41 4.20-5.50 X10*6/uL Hemoglobin 11.0 12.0-16.0 g/dl Hematocrit 34.2 37.0-47.0 % Mean Corpuscular Volume 100.3 80.0-98.0 fL Mean Corpuscular Hemoglobin 32.3 27.0-33.0 pg Mean Corpuscular HGB Conc 32.2 31.0-35.0 g/dl Red Cell Distribution Width 14.7 11.0-16.0 % Platelet Count 202 160-400 X10*3/uL Mean Platelet Volume 8.9 9.4-12.3 fL Neutrophils Percent Auto 65.8 45-73 % Imm Gran Pct Auto 0.7 0.0-0.4 % Lymphocytes Percent Auto 22.0 20-40 % Monocytes Percent Auto 10.2 2-11 % Eosinophils Percent Auto 1.0 0-4 % Basophils Percent Auto 0.3 0-2 % NRBC Pct Auto 0.0 0.0-0.2 /100WBC Neutrophils Absolute Auto 4.0 2.0-8.3 x10*3/u L Imm Gran Abs Auto 0.04 0.00-0.03 X10*3/uL Lymphocytes Absolute Auto 1.3 1.2-4.9 X10*3/u L Monocytes Absolute Auto 0.6 0.1-1.2 X10*3/uL Eosinophils Absolute Auto 0.1 0.0-0.4 X10*3/u L Basophils Absolute Auto 0.0 0.0-0.2 X10*3/uL NRBC Abs Auto 0.000 0.0-0.012 X10*3/uL Complete Blood Count Auto Di ff Reviewed date:11/25/2024 04:30:20 PM Interpretation: Performing Lab:[facility], [address] [place] [phone] Notes/Report: White Blood Count 8.3 4.8-10.8 X10*3/uL Red Blood Count 3.66 4.20-5.50 X10*6/uL Hemoglobin 11.8 12.0-16.0 g/dl Hematocrit 37.2 37.0-47.0 % Mean Corpuscular Volume 101.6 80.0-98.0 fL Mean Corpuscular Hemoglobin 32.2 27.0-33.0 pg Mean Corpuscular HGB Conc 31.7 31.0-35.0 g/dl Red Cell Distribution Width 14.6 11.0-16.0 % Platelet Count 220 160-400 X10*3/uL Mean Platelet Volume 9.3 9.4-12.3 fL Neutrophils Percent Auto 77.3 45-73 % Imm Gran Pct Auto 1.2 0.0-0.4 % Lymphocytes Percent Auto 14.4 20-40 % Monocytes Percent Auto 6.5 2-11 % Eosinophils Percent Auto 0.1 0-4 % Basophils Percent Auto 0.5 0-2 % NRBC Pct Auto 0.0 0.0-0.2 /100WBC Neutrophils Absolute Auto 6.4 2.0-8.3 x10*3/u L Imm Gran Abs Auto 0.10 0.00-0.03 X10*3/uL Lymphocytes Absolute Auto 1.2 1.2-4.9 X10*3/u L Monocytes Absolute Auto 0.5 [...] Problem Status W/U Status Risk Notes Problem 338747672 Overweight (E66.3) Active confirmed We have discussed lifestyle modification in her diet and nutrition today. She will try to lose weight and 1/2 pound per week. Problem 71648013 Allergy to sulfa drugs (Z88.2) Active confirmed Problem Lupus anticoagulant disorder (35300284) Lupus anticoagulant syndrome (D68.62) Active confirmed She has freitas d no symptoms of blood clots or emboli or bleeding.She remains anticoagulate d. Problem 060683475 Anticoagulated (Z79.01) Active confirmed She was continued on current therapy. No change was made. Problem 61386485 ITP (idiopathic thrombocytopenic purpura) (D69.3) Active confirmed Her current platelet count is 220,000. She is stable at this time and no change in her therapy was needed. She will take 5 mg of prednisone daily. Her next visit will be in 3 weeks after a CBC. Problem 88447605 Essential hypertension (I10) Active confirmed She is managed by primary care and says her blood pressure has been in the normal range. Problem 458287524496756 History of herpe s zoster (Z86.19) Active confirmed No treatment is required for this historical event. Problem 720897054 Allergy history, penicillin (Z88.0) Active confirmed Problem 48192224 Macrocytic anemi a (D53.9) Active confirmed Her values are stable today. His hematocrit is 37% and the mean cell volume elevated at 101.6. This is being evaluated but is not progressive. Problem 942271930 Acute pulmonary embolism without acute cor pulmonale, unspecified pulmonary embolism type (I26.99) Active confirmed She has had no bleeding. She continues on her current therapy. Vital Signs Heart Rate 67 /min 11/27/2024 Temperature 97.9 degrees Fahrenheit 11/27/2024 Blood pressure diastolic 79 mm Hg 11/27/2024 Height 67.5 in 11/27/2024 Blood pressure systolic 134 mm Hg 11/27/2024 Weight 181 lbs 11/27/2024 BMI 27.93 kg/m2 11/27/2024 Encounters Encounter Location Date Provider Diagnosis Gage Day III, MD [address] [place] [address] [place] [phone] 12/27/2023 Gage Day ITP (idiopathic thrombocytopenic purpura) D69.3 ; Overweight E66.3 ; Essential hypertension I10 ; Lupus anticoagulant syndrome D68.62 and Acute pulmonary embolism without acute cor pulmonale, unspecified pulmonary embolism type I26.99 Gage Day III, MD [address] [place] [address] [place] [phone] 01/22/2024 Gage Day ITP (idiopathic thrombocytopenic purpura) D69.3 ; Essential hypertension I10 ; Overweight E66.3 ; Lupus anticoagulant syndrome D68.62 ; Acute pulmonary embolism without acute cor pulmonale, unspecified pulmonary embolism type I26.99 and Anticoagulated Z79.01 Gage Day III, MD [address] [place] [address] [place] [phone] 02/21/2024 Gage Day ITP (idiopathic thrombocytopenic purpura) D69.3 ; Essential hypertension I10 ; Overweight E66.3 ; Lupus anticoagulant syndrome D68.62 and Acute pulmonary embolism without acute cor pulmonale, unspecified pulmonary embolism type I26.99 Gage Day III, MD [address] [place] [address] [place] [id number] 03/13/2024 Gage Day ITP (idiopathic thrombocytopenic purpura) D69.3 ; Essential hypertension I10 ; Acute pulmonary embolism without acute cor pulmonale, unspecified pulmonary embolism type I26.99 ; Lupus anticoagulant syndrome D68.62 ; Anticoagulated Z79.01 and Overweight (BMI 25.0-29.9) E66.3 Gage Day III, MD [address] [place] [address] [place] [phone] 04/07/2024 Gage Day ITP (idiopathic thrombocytopenic purpura) D69.3 ; Essential hypertension I10 ; Anticoagulated Z79.01 ; Lupus anticoagulant syndrome D68.62 ; Acute pulmonary embolism without acute cor pulmonale, unspecified pulmonary embolism type I26.99 and Allergy to sulfa drugs Z88.2 Gage Day III, MD [address] [place] [address] [place] [id number] 05/01/2024 Gage Day ITP (idiopathic thrombocytopenic purpura) D69.3 ; Essential hypertension I10 ; Anticoagulated Z79.01 ; Lupus anticoagulant syndrome D68.62 ; Acute pulmonary embolism without acute cor pulmonale, unspecified pulmonary embolism type I26.99 ; Macrocytic anemia D53.9 and Overweight (BMI 25.0-29.9) E66.3 Gage Day III, MD [address] [place] [address] [place] [id number] 05/28/2024 Gage Day ITP (idiopathic thrombocytopenic purpura) D69.3 ; Essential hypertension I10 ; Lupus anticoagulant syndrome D68.62 ; Acute pulmonary embolism without acute cor pulmonale, unspecified pulmonary embolism type I26.99 ; Anticoagulated Z79.01 ; Macrocytic anemia D53.9 and Overweight (BMI 25.0-29.9) E66.3 Gage Day III, MD [address] [place] [address] [place] [id number] 06/19/2024 Gage Day ITP (idiopathic thrombocytopenic purpura) D69.3 ; Essential hypertension I10 ; Anticoagulated Z79.01 ; Lupus anticoagulant syndrome D68.62 and Overweight (BMI 25.0-29.9) E66.3 Gage Day III, MD [address] [place] [address] [place] [id number] 07/14/2024 Gage Day ITP (idiopathic thrombocytopenic purpura) D69.3 ; Essential hypertension I10 ; Lupus anticoagulant syndrome D68.62 ; Acute pulmonary embolism without acute cor pulmonale, unspecified pulmonary embolism type I26.99 ; Anticoagulated Z79.01 and Overweight (BMI 25.0-29.9) E66.3 Gage Day III, MD [address] [place] [address] [place] [id number] 08/07/2024 Gage Day ITP (idiopathic thrombocytopenic purpura) D69.3 ; Essential hypertension I10 ; Lupus anticoagulant syndrome D68.62 ; Acute pulmonary embolism without acute cor pulmonale, unspecified pulmonary embolism type I26.99 ; Anticoagulated Z79.01 and Overweight (BMI 25.0-29.9) E66.3 Gage Dya III, MD [address] [facility] [place] [id number] 08/28/2024 Gage Day ITP (idiopathic thrombocytopenic purpura) D69.3 ; Essential hypertension I10 ; Lupus anticoagulant syndrome D68.62 ; Acute pulmonary embolism without acute cor pulmonale, unspecified pulmonary embolism type I26.99 ; Anticoagulated Z79.01 and Macrocytic anemia D53.9 Gage Day III, MD [address] [place] [address] [place] [id number] 09/18/2024 Gage Day ITP (idiopathic thrombocytopenic purpura) D69.3 ; Essential hypertension I10 ; History of herpes zoster Z86.19 ; Anticoagulated Z79.01 ; Lupus anticoagulant syndrome D68.62 ; Acute pulmonary embolism without acute cor pulmonale, unspecified pulmonary embolism type I26.99 and Overweight (BMI 25.0-29.9) E66.3 Gage Day III, MD [address] [place] [address] [place] [id number] 10/09/2024 Gage Day ITP (idiopathic thrombocytopenic purpura) D69.3 ; Essential hypertension I10 ; Macrocytic anemia D53.9 ; Anticoagulated Z79.01 ; Lupus anticoagulant syndrome D68.62 and Overweight (BMI 25.0-29.9) E66.3 Gage Day III, MD [address] [place] [address] [place] [id number] 10/30/2024 Gage Day ITP (idiopathic thrombocytopenic purpura) D69.3 ; Overweight E66.3 ; Lupus anticoagulant syndrome D68.62 ; Macrocytic anemia D53.9 and Acute pulmonary embolism without acute cor pulmonale, unspecified pulmonary embolism type I26.99 Gage Day III, MD [address] [place] [address] [place] [phone] 11/27/2024 Gage Day ITP (idiopathic thrombocytopenic purpura) D69.3 ; Overweight E66.3 ; Essential hypertension I10 ; Acute pulmonary embolism without acute cor pulmonale, unspecified pulmonary embolism type I26.99 ; Lupus anticoagulant syndrome D68.62 ; Anticoagulated Z79.01 and Macrocytic anemia D53.9 Assessments Encounter Date Diagnosis (ICD Code) Assessment Notes T reatment Notes Treatment Clinical Notes 12/27/2023 Overweight (ICD-10 - E66.3) We have [...] pressure has been in the normal range. 10/30/2024 Overweight (ICD-10 - E66.3) We have discussed lifestyle modification in her diet and nutrition today. She will try to lose weight and 1/2 pound per week. 10/30/2024 ITP (idiopathic thrombocytopenic purpura) (ICD-10 - [...] weight and 1/2 pound per week. 11/27/2024 ITP (idiopathic thrombocytopenic purpura) (ICD-10 - D69.3) Her current platelet count is 220,000. She is stable at this time and no change in her therapy was needed. She will take 5 mg of prednisone daily. Her next visit will be in 3 weeks after a CBC. 12/27/2023 Essential hypertensi on (ICD-10 - I10) [...] followed closely for possible myelodysplastic syndrome. 10/30/2024 Lupus anticoagulant syndrome (ICD-10 - D68.62) She has had no symptoms of blood clots or emboli or bleeding.She remains anticoagulated. 11/27/2024 Essential hypertensi on (ICD-10 - I10) [...] on current therapy. No change was made. 10/30/2024 Macrocytic anemia (ICD-10 - D53.9) She is slowly developing anemia and macrocytosis. Her vitamin B12 and folic acid levels have been normal. Her reticulocyte count is unremarkable. She has had no bleeding. She'll be followed closely for possible myelodysplastic syndrome. 11/27/2024 Acute pulmonary embolism without acute cor [...] or emboli or bleeding.She remains anticoagulated. 10/30/2024 Acute pulmonary embolism without acute cor pulmonale, unspecified pulmonary embolism type (ICD-10 - I26.99) She has had no bleeding. She continues on her current therapy. 11/27/2024 Lupus anticoagulant syndrome (ICD-10 - D68.62) She has had no symptoms of blood clots or emboli or bleeding.She remains anticoagulated. 01/22/2024 Anticoagulated (ICD- 10 - Z79.01) She [...] she stabilize her weight at this level. 11/27/2024 Anticoagulated (ICD- 10 - Z79.01) She was continued on current therapy. No change was made. 05/01/2024 Overweight (BMI 25.0-29.9) (ICD-10 - E66.3) [...] she stabilize her weight at this level. 11/27/2024 Macrocytic anemia (ICD-10 - D53.9) Her values are stable today. His hematocrit is 37% and the mean cell volume elevated at 101.6. This is being evaluated but is not progressive. Plan Of Treatment Pending Test Test Name Order Date EKG 06/10/2017 PROFILE, RANDOM (COMPREHENSIVE METABOLIC ) 07/19/2023 RETICULOCYTE COUNT,CORRECTED 07/19/2023 MRI LUMBAR SPINE NO CONTRAST 06/12/2017 MRI PELVIS NO CONTRAST 06/12/2017 MRI THORACIC SPINE NO CONTRAST 8 BONE DENSITY DEXA 08/17/2022 CBC WITH AUTO DIFF 06/05/2023 CBC WITH AUTO DIFF 07/19/2023 Ferritin 07/19/2023 Vitamin B12 07/19/2023 Folate 07/19/2023 Next Appt Details Provider Name:Gage Day , 12/25/2024 09:45:00 AM, [address] [place] [address] LEIF YARBROUGH, [place], [place], [address], Insurance Providers Payer Name Payer Address Payer Phone Subscriber Number Group Number Insured Name Patient Relationship to Insured Coverage Start Date Coverage End Date MEDICARE NGS [address] [place] [phone] [id number] Roseann Guido Self - patient is the insured [facility] [address] [place], [place] [phone] [id number] Roseann Guido Self - patient is the insured Medical [...]
--- OUTSIDE RECORDS SUMMARY | 2024-12-25 07:26 | XMS_ITS | Patient Health Record ---
Author Organization [facility] Address [address] [place] [address] Care Team Providers Care Ambulance Paramedic Name Role Phone Farheen (RETIRED) Sg EDWARDS Primary Care Provider Unavailable Gage Lizarraga Unavailable [phone] Allergies Allergen (clinical drug ingredient) Drug/Non Drug [...] Date End Date Status predniSONE 5 MG Oral; Duration: 30 Active Metoprolol Tartrate 100 MG 1 tablet with food Orally Twice a day Active Vitamin B Complex - Orally Active Calcium 500 MG 1 tablet with meals Orally Twice a day; Duration: 30 day(s) Active Multivitamin - 1 tablet Orally Once a day; Duration: 30 day(s) Active Losartan Potassium 50 MG Oral; Duration: 90 Active Rosuvastatin Calcium 5 MG Oral; Duration: 90 Active Levothyroxine Sodium 50 MCG Oral; Duration: 90 Active Eliquis 5 MG Oral; Duration: 30 Active Vitamin D3 50 MCG (1999) TAKE 1 TABLE T DAILY Oral; Duration: 90 Active Social History Tobacco Use: Social [...] Problem Status W/U Status Risk Notes Problem Screening for malignant neoplasm of colon (290223534) Encounter for screening for malignant neoplasm of colon (Z12.11) Active confirmed Problem History of adenomatous polyp of colon (519978162) History of adenomatous polyp of colon (Z86.010) Active confirmed Problem History of polyp of colon (situation) (652078717) Personal history of colonic polyps (Z86.010) Active confirmed Problem Diverticular disease of colon (128899501) Diverticulosis of large intestine without perforation or abscess without bleeding (K57.30) Active confirmed Problem Preprocedural examination (071671203572969 ) Preprocedural examination (Z01.818) Active confirmed Problem Long-term current use of anticoagulant (799506437) Current use of termite control service representative anticoagulation (Z79.01) Active confirmed Plan Of Treatment Future Test Test Name Order Date COLONOSCOPY 11/13/2016 COLONOSCOPY 06/11/2023 Insurance Providers Payer Name Payer Address Payer Phone Subscriber Number Group Number Insured Name Patient Relationship to Insured Coverage Start Date Coverage End Date MEDICARE OF [place] [address] [place] [address] [id number] SERG GUIDO Self - patient is the insured [facility] [address] [place], [place] [phone] [id number] SERG GUIDO Self - patient is the insured Medical (General) History Medical History History ICD Code Screening colonoscopy 05-27-19 08--no polyps; just diverticulosis and internal hemorrhoids Denies [place],DM,CVA,Lung disease,renal dise ase ITP--treated with prednisone and Rituxan --dx'd in 2014 HTN Pulmonary embolism-Dr. Day--uses Eliqu is Colonoscopy 07/2017 with a small rectal t ubular adenoma Vertebroplasty Surgical History Surgery Date(Month/Year)
[2024-12-25 07:28] LABS: MANUAL DIFF FLAG NO
[2024-12-25 08:05] LABS: Hematocrit 37.1 % (37.0-47.0); Hemoglobin 11.3 g/dl (12.0-16.0); Imm Gran Abs Auto 0.04 X10*3/uL (0.00-0.03); Imm Gran Pct Auto 0.7 % (0.0-0.4); Lymphocytes Absolute Auto 1.5 X10*3/uL (1.2-4.9); Mean Corpuscular HGB Conc 30.5 g/dl (31.0-35.0); Mean Corpuscular Hemoglobin 31.6 pg (27.0-33.0); Mean Corpuscular Volume 103.6 fL (80.0-98.0); NRBC Abs Auto 0.000 X10*3/uL (0.0-0.012); NRBC Pct Auto 0.0 /100WBC (0.0-0.2); Platelet Count 208 X10*3/uL (160-400); Red Blood Count 3.58 X10*6/uL (4.20-5.50); White Blood Count 6.1 X10*3/uL (4.8-10.8)
== END 2024-12-25 07:20 | disposition home or self-care (01) ==
LOC: HO.LABR 07:19
PROVIDERS: Visit Provider Internal Medicine Medical Oncology
DX: D69.3 Immune thrombocytopenic purpura (principal)
CPT/HCPCS: 36415; 85025

== ENCOUNTER 2025-01-21 09:14 | Outpatient (REF) | payer MEDICARE, BC, SELFPAY ==
--- OUTSIDE RECORDS SUMMARY | 2023-09-11 03:30 | XMS_ITS ---
Author Organization [facility] Address [address] [place] [address] Care Team Providers Care Rehabilitation Services Director Name Role Phone Farheen (RETIRED) Sg EDWARDS Primary Care Provider Unavailable Gage Lizarraga Unavailable [phone] REASON FOR VISIT screening,hx polyps Problems Problem Type SNOMED Code ICD Code Onset Dates Problem Status W/U Status Risk Notes Problem History of polyp of colon (situation) (725039503) Personal history of colonic polyps (Z86.010) Active confirmed Problem Diverticular disease of colon (624032209) Diverticulosis of large intestine without perforation or abscess without bleeding (K57.30) Active confirmed Encounters Encounter Location Date Provider Diagnosis [facility] [place] [address] [place] [phone] 09/11/2023 Gage Lizarraga Colon cancer scree javi Z12.11 ; Personal history of colonic polyps Z86.010 ; Family history of colon cancer Z80.0 ; Diverticulosis of large intestine without perforation or abscess without bleeding K57.30 and Other hemorrhoids K64.8 Assessments Encounter Date Diagnosis (ICD Code) Assessment Notes Treatment Notes Treatment Clinical Notes Section Notes 09/11/2023 Colon cancer screening (ICD-10 - Z12.11) 09/11/2023 Personal history of colonic polyps (ICD-10 - Z86.010) 09/11/2023 Family history of colon cancer (ICD-10 - Z80.0) 09/11/2023 Diverticulosis of large intestine without perforation or abscess without bleeding (ICD-10 - K57.30) 09/11/2023 Other hemorrhoids (ICD-10 - K64.8) Plan Of Treatment No Information Progress Notes * TRISTON GUIDO:1950 (74 yo F)Acc No.[id number]:09/11/2023 COLON WITH MAC Patient: SERG PIÑA Provider: Robyn Lizarraga MD :1950 A ge:72 Y S ex:Female Date:09/11/2023 Address:[address] [place] [address] [id number] Pcp:Sg Zhong (RETIRED) MD Subjective: * Chief Complaints: * S creening,hx polyps Assessment: * Assessment: 1. C olon cancer screening - Z12.11 (Primary) 2 . P ersonal history of colonic polyps - Z86.010 3 . F amily history of colon cancer - Z80.0 ?4. D iverticulosis of large intestine without perforation or abscess without bleeding - K57.30 5. O ther hemorrhoids - K64.8 Plan: * Procedure Codes: G 0105 COLOREC CANCR SCR; COLNSCPY HI [id number] INTRVL 3+YRS PTS CLNSCP [id number] RCMND FLW-UP 10 YRS DOCD, Modifiers: 1P Billing Information: * Procedure Codes: G0105 COLOREC CANCR SCR; COLNSCPY HI RISK. 0529F INTRVL 3+YRS PTS CLNSCP DOCD. 0528F RCMND FLW-UP 10 YRS DOCD. Modifiers: 1P * The named appointment provid er may or may not be the originator of this progress note, and it is not deemed complete until electronically signed by the appointment provider. Sign off status: Pending * Provider: Robyn Lizarraga MD Date: 0 09/11/2023 Generated for Brendan lantigua/Chacho/eTransmitting on: 1 03/24/2024 10:17 AM EST
--- OUTSIDE RECORDS SUMMARY | 2024-05-28 05:30 | XMS_ITS ---
Author Organization Gage Day III, MD Address [address] [place] [address] [place] [address] Care Team Providers Care Broadcast Chief Engineer Name Role Phone Eveline Gonzalez (Luis) Primary [...] Date Provider Diagnosis Gage Day III, MD [address] [place] [address] [place] [address] 05/28/2024 Gage Shay ITP (idiopathic thrombocytopenic purpura) [...] predniSONE 1 MG TAKE 5 TABLETS BY [facility] ONCE DAILY WITH FOOD FOR 30 DAYS Metoprolol Succinate ER 75 mg 1 tablet Orally Once a day Levothyroxine Sodium 50 MCG 1 capsule Orally Once a day Rosuvastatin Calcium 5 MG TAKE 1 TABLET BY MOUTH AT BEDTIME Oral Next Appt Details Follow Up: 3 Weeks, Reason: Telehealth Provider Name:Gage Day , 01/22/2025 10:30:00 AM, [address] [place] [address], [address], [place], [address], Progress Notes * Zakia GUIDOOB:1950 (73 yo F)Acc No.[id number]:05/28/2024 Patient: Roseann PIÑA Provider: Robyn Day MD :1950 A ge:73 Y S ex:Female Date:05/28/2024 Address:[address] [place] [address], [id number] Pcp:Sg Zhong MD Subjective: * Chief Complaints: [...] ocation of provider rendering services: { ...} [address] [place] [address] Drive [address] [facility] [address] L ocation of patient: a ddress listed [...] marrow biopsy and aspirate. Iliac crest 05/2014Colonoscopy, [facility] [place], Dr. Morel, sessile serrated polypoid adenoma with [...] MD Date: 0 05/28/2024 Generated for Brendan lantigua/Chacho/Jyothiitting on: 1 03/24/2024 10:15 AM EST History and Physical Notes * HPI (History of Present Illness) Category Sub-Category Detail Notes Telehealth Location of [facility] rendering services:: {...} [address] [place], [place] [id number] Location of patient:: address listed in demographics [...]
--- OUTSIDE RECORDS SUMMARY | 2024-06-19 04:30 | XMS_ITS ---
Author Organization Gage Day III, MD Address [address] [place] [address] [place] [address] Care Team Providers Care Enrollment Management Vice President Name Role Phone Eveline Gonzalez (Luis) Primary Care Provider Unavailable Dr. Gage Day III Unavailable Allergies Allergen (clinical drug ingredient) Drug/Non Drug Allergy documented on EMR Reaction Allergy Type Onset Date Status sulfacetamide Sulfacetamide Unknown Drug Allergy Active Penicillin Unknown Drug Allergy Active REASON FOR VISIT Idiopathic thrombocytopenic purpura, Lupus anticoagulant, History of pulmonary embolism Medications Medication SIG (Take, Route, Frequency, Duration) Notes Start Date End Date Status predniSONE 1 MG TAKE 5 TABLETS BY [facility] ONCE DAILY WITH FOOD FOR 30 DAYS Active Eliquis 5 MG TAKE 1 TABLET BY [facility] TWICE A DAY Orally twice a day Active Levothyroxine Sodium 50 MCG 1 capsule Or ally Once a day Active Metoprolol Succinate ER 75 mg 1 tablet Orally Once a day Active Rosuvastatin Calcium 5 MG TAKE 1 TABLET BY MOUTH AT BEDTIME Oral Active Social History Sex Assigned At : Social History Observation Description Sex Assigned At Female Vital Signs Height 67.5 in 06/19/2024 Weight 168 lbs 06/19/2024 BMI 25.92 kg/m2 06/19/2024 Encounters Encounter Location Date Provider Diagnosis Gage Day III, MD [address] [place] [address] [place] [address] 06/19/2024 Gage Day ITP (idiopathic thrombocytopenic purpura) D69.3 ; Essential hypertension I10 ; Anticoagulated Z79.01 ; Lupus anticoagulant syndrome D68.62 and Overweight (BMI 25.0-29.9) E66.3 Assessments Encounter Date Diagnosis (ICD Code) Assessment Notes Treat ment Notes Treatment Clinical Notes 06/19/2024 ITP (idiopathic thrombocytopenic purpura) (ICD-10 - D69.3) Her current platelet count is 221,000. She is stable at this time and no change in her therapy was needed. She will take 5 mg of prednisone daily. Her next visit will be in 3 weeks after a CBC. 06/19/2024 Essential hypertensi on (ICD-10 - I10) She is managed by primary care and says her blood pressure has been in the normal range. 06/19/2024 Anticoagulated (ICD- 10 - Z79.01) She was continued on current therapy. No change was made. 06/19/2024 Lupus anticoagulant syndrome (ICD-10 - D68.62) She has had no symptoms of blood clots or emboli or bleeding.She remains anticoagulated. 06/19/2024 Overweight (BMI 25.0-29.9) (ICD-10 - E66.3) She has lost 18 pounds through diet and exercise. She remains only slightly overweight. I suggested she stabilize her weight at this level. Plan Of Treatment Medication Medication Name Sig Start Date Stop Date Notes predniSONE 1 MG TAKE 5 TABLETS BY MO [facility] ONCE DAILY WITH FOOD FOR 30 DAYS Eliquis 5 MG TAKE 1 TABLET BY [facility] TH TWICE A DAY Orally twice a day Levothyroxine Sodium 50 MCG 1 capsule Orally Once a day Metoprolol Succinate ER 75 mg 1 tablet Orally Once a day Rosuvastatin Calcium 5 MG TAKE 1 TABLET BY MOUTH AT BEDTIME Oral Next Appt Details Follow Up: 3 Weeks, Reason: ov Provider Name:Gage Day , 01/22/2025 10:30:00 AM, [address] [place] [address] [address], [place], [address], Progress Notes * Zakia GUIDOOB:1950 (73 yo F)Acc No.[id number]:06/19/2024 Patient: Roseann PIÑA Provider: Robyn Day MD :1950 A ge:73 Y S ex:Female Date:06/19/2024 Address:[address] [place], [place] [address], [id number] Pcp:Sg Zhong MD Subjective: * Chief Complaints: * I diopathic thrombocytopenic purpuraLupus anticoagulantHistory of pulmonary embolism * HPI: * : Her platelet count is 221,000. Recently on a prednisone dose of mild milligrams daily. She is having no side effects from the medication. She denies any symptoms of clotting. She has had no bleeding or bruising. She feels generally healthy and well and is trying to reduce her weight. Her prednisone dose was left as is her in another 3 weeks. I will continue to try to drop the prednisone dose the limits, of which she feels comfortable. Telehealth L ocation of provider rendering services: { ...} [address] [facility] [address] [place] [address] L ocation of patient: marcos quezada listed in demographics for today's visit P [...] marrow biopsy and aspirate. Iliac crest 05/2014Colonoscopy, [facility], Dr. Morel, sessile serrated polypoid adenoma with [...] N otes :Her current platelet count is 221,000. She is stable at this time and no change in her therapy was needed. She will take 5 mg of prednisone daily. Her next visit will be in 3 weeks after a CBC. 2 . E ssential hypertension - I10 N otes :She is managed by primary care and says her blood pressure has been in the normal range. 3 . A nticoagulated - Z79.01 N otes :She was continued on current therapy. No change was made. 4 . L upus anticoagulant syndrome - D68.62 N otes :She has had no symptoms of blood clots or emboli or bleeding.She remains anticoagulated. 5 . O verweight (BMI 25.0-29.9) - E66.3 [...] FOOD FOR 30 DAYS. * Procedure Codes: 9 8012 SYNCH AUDIO-ONLY EST SF 10 * Preventive Medicine: Counseling: C are goal follow-up plan: Counseling for abnormal BMI given Y es Above Normal BMI Follow-up D ietary needs education * Follow Up: 3 Weeks (Reason: ov) * Images: * Sign off status: Completed true * Provider: Robyn Day MD Date: 0 06/19/2024 Generated for Brendan lantigua/Chacho/Jyothiitting on: 03/24/2024 10:14 AM EST History and Physical Notes * HPI (History of Present Illness) Category Sub-Category Detail Notes Telehealth Location of [facility] rendering services:: {...} [address] [facility] [address] [place] [address] Location of patient:: address listed in demographics [...]
--- OUTSIDE RECORDS SUMMARY | 2024-07-14 04:15 | XMS_ITS ---
Author Organization Gage Day III, MD Address [address] [place] [address] [address] [place] [address] Care Team Providers Care Telecom Sales Consultant Name Role Phone Eveline Gonzalez (Luis) Primary Care Provider Unavailable Dr. Gage Day III Unavailable Allergies Allergen (clinical drug ingredient) Drug/Non Drug Allergy documented on EMR Reaction Allergy Type Onset Date Status sulfacetamide Sulfacetamide Unknown Drug Allergy Active Penicillin Unknown Drug Allergy Active REASON FOR VISIT Idiopathic thrombocytopenic purpura, Coagulopathy, History of pulmonary embolism, Hypertension Medications Medication SIG (Take, Route, Frequency, Duration) Notes Start Date End Date Status Eliquis 5 MG TAKE 1 TABLET BY CHRISTAL TH TWICE A DAY Orally twice a day Active Metoprolol Succinate ER 75 mg 1 tablet Orally Once a day Active predniSONE 1 MG TAKE 5 TABLETS BY MO [facility] ONCE DAILY WITH FOOD FOR 30 DAYS Active Rosuvastatin Calcium 5 MG TAKE 1 TABLET BY MOUTH AT BEDTIME Oral Active Levothyroxine Sodium 50 MCG 1 capsule Or ally Once a day Active Social History Tobacco Use: Social History Observation Description Date Details (start date - stop date) Never Smoker NA - NA Sex Assigned At : Social History Observation Description Sex Assigned At Female Tobacco Control (Standard) Question Answer Notes Tobacco use: Nonsmoker Vital Signs Height 67.5 in 07/14/2024 Weight 168 lbs 07/14/2024 BMI 25.92 kg/m2 07/14/2024 Encounters Encounter Location Date Provider Diagnosis Gage Day III, MD [address] [place] [address] [address] [place]INDAL[address]A, [place] [address] 07/14/2024 Gage Day ITP (idiopathic thrombocytopenic purpura) D69.3 ; Essential hypertension I10 ; Lupus anticoagulant syndrome D68.62 ; Acute pulmonary embolism without acute cor pulmonale, unspecified pulmonary embolism type I26.99 ; Anticoagulated Z79.01 and Overweight (BMI 25.0-29.9) E66.3 Assessments Encounter Date Diagnosis (ICD Code) Assessment Notes Treat ment Notes Treatment Clinical Notes 07/14/2024 ITP (idiopathic thrombocytopenic purpura) (ICD-10 - D69.3) Her current platelet count is 222,000. She is stable at this time and no change in her therapy was needed. She will take 5 mg of prednisone daily. Her next visit will be in 3 weeks after a CBC. 07/14/2024 Essential hypertensi on (ICD-10 - I10) She is managed by primary care and says her blood pressure has been in the normal range. 07/14/2024 Lupus anticoagulant syndrome (ICD-10 - D68.62) She has had no symptoms of blood clots or emboli or bleeding.She remains anticoagulated. 07/14/2024 Acute pulmonary embolism without acute cor pulmonale, unspecified pulmonary embolism type (ICD-10 - I26.99) She has had no bleeding. She continues on her current therapy. 07/14/2024 Anticoagulated (ICD- 10 - Z79.01) She was continued on current therapy. No change was made. 07/14/2024 Overweight (BMI 25.0-29.9) (ICD-10 - E66.3) She has lost 18 pounds through diet and exercise. She remains only slightly overweight. I suggested she stabilize her weight at this level. Plan Of Treatment Medication Medication Name Sig Start Date Stop Date Notes Eliquis 5 MG TAKE 1 TABLET BY CHRISTAL TH TWICE A DAY Orally twice a day Metoprolol Succinate ER 75 mg 1 tablet Orally Once a day predniSONE 1 MG TAKE 5 TABLETS BY MO [facility] ONCE DAILY WITH FOOD FOR 30 DAYS Rosuvastatin Calcium 5 MG TAKE 1 TABLET BY MOUTH AT BEDTIME Oral Levothyroxine Sodium 50 MCG 1 capsule Orally Once a day Next Appt Details Follow Up: 3 Weeks, Reason: ov Provider Name:Gage aDy , 01/22/2025 10:30:00 AM, [address] [place] [address], [address], [place], [address], Progress Notes * Zakia GUIDOOB:1950 (73 yo F)Acc No.[id number]:07/14/2024 Patient: Roseann PIÑA Provider: Robyn Day MD :1950 A ge:73 Y S ex:Female Date:07/14/2024 Address:[address] [place] [address], [facility], [id number] Pcp:Sg Zhong MD Subjective: * Chief Complaints: * I diopathic thrombocytopenic purpuraCoagulopathyHistory of pulmonary embolismHypertension * HPI: * : This telehealth visit took place over 15 minutes with the patient at home and me in my office. She gave consent for billing. This was to follow-up on her thrombocytopenia and coagulopathy. She has had no bleeding or symptoms of clotting. Her platelet count is in the normal range. She is on a small dose of prednisone daily which was continued. Follow-up visit in 3 weeks was arranged. No changes in her regimen were made. Telehealth L ocation of provider rendering services: { ...} [address] [place] [address] [address] [facility] [address] L ocation of patient: a ddress listed in demographics for today's visit P atient identification confirmed using: Jeanine michelleEDEN asencio T elehealth method: T elephone only. Patient [...] marrow biopsy and aspirate. Iliac crest 05/2014Colonoscopy, [facility], Dr. 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 M other: 76 yrs. Her father of head and neck cancer. Her mother of colon cancer. She has no children. There is no family history of mental illness or substance abuse. * Social History: T obacco Use: T obacco Control (Standard) T obacco use: N onsmoker S he is and lives at home with her . She is retired. * Medications: T akingEliquis 5 MG Tablet [...] t: 67.5, Wt:168, BMI:25.92, Ht-cm: 171.45, Wt-k.2. * P ast Orders: Lab:Complete Blood Count Aut o Diff * Collection Date 07/14/2024 06/18/2024 05/27/2024 Collection Time 07:18 AM 07:30 AM 07:11 AM 08:14 AM Order Date 07/14/2024 06/18/2024 05/27/2024 05/01/2024 White Blood Count 5.5 (Ref Range: 4.8-10.8 X10*3/uL) 5.3 (Ref Range: 4.8-10.8 X10*3/uL) 6.4 (Ref Range: 4.8-10.8 X10*3/uL) 6.7 (Ref Range: 4.8-10.8 X10*3/uL) Red Blood Count 3.52 L (Ref Range: 4.20-5.50 X10*6/uL) 3.52 L (Ref Range: 4.20-5.50 X10*6/uL) 3.61 L (Ref Range: 4.20-5.50 X10*6/uL) 3.47 L (Ref Range: 4.20-5.50 X10*6/uL) Hemoglobin 11.5 L (Ref Range: 12.0-16.0 g/dl) 11.4 L (Ref Range: 12.0-16.0 g/dl) 11.7 L (Ref Range: 12.0-16.0 g/dl) 11.2 L (Ref Range: 12.0-16.0 g/dl) Hematocrit 35.5 L (Ref Range: 37.0-47.0 %) 35.3 L (Ref Range: 37.0-47.0 %) 37.2 (Ref Range: 37.0-47.0 %) 35.5 L (Ref Range: 37.0-47.0 %) Mean Corpuscular Volume 100.9 H (Ref Range: 80.0-98.0 fL) 100.3 H (Ref Range: 80.0-98.0 fL) 103.0 H (Ref Range: 80.0-98.0 fL) 102.3 H (Ref Range: 80.0-98.0 fL) Mean Corpuscular Hemoglobin 32.7 (Ref Range: 27.0-33.0 pg) 32.4 (Ref Range: 27.0-33.0 pg) 32.4 (Ref Range: 27.0-33.0 pg) 32.3 (Ref Range: 27.0-33.0 pg) Mean Corpuscular HGB Conc 32.4 (Ref Range: 31.0-35.0 g/dl) 32.3 (Ref Range: 31.0-35.0 g/dl) 31.5 (Ref Range: 31.0-35.0 g/dl) 31.5 (Ref Range: 31.0-35.0 g/dl) Red Cell Distribution Width 14.6 (Ref Range: 11.0-16.0 %) 14.5 (Ref Range: 11.0-16.0 %) 13.9 (Ref Range: 11.0-16.0 %) 14.5 (Ref Range: 11.0-16.0 %) Platelet Count 222 (Ref Range: 160-400 X10*3/uL) 221 (Ref Range: 160-400 X10*3/uL) 218 (Ref Range: 160-400 X10*3/uL) 210 (Ref Range: 160-400 X10*3/uL) Mean Platelet Volume 8.8 L (Ref Range: 9.4-12.3 fL) 9.0 L (Ref Range: 9.4-12.3 fL) 8.8 L (Ref Range: 9.4-12.3 fL) 9.1 L (Ref Range: 9.4-12.3 fL) Neutrophils Percent Auto 56.2 (Ref Range: 45-73 %) 53.9 (Ref Range: 45-73 %) 57.2 (Ref Range: 45-73 %) 70.4 (Ref Range: 45-73 %) Imm Gran Pct Auto 0.4 (Ref Range: 0.0-0.4 %) 0.4 (Ref Range: 0.0-0.4 %) 0.5 H (Ref Range: 0.0-0.4 %) 0.4 (Ref Range: 0.0-0.4 %) Lymphocytes Percent Auto 30.8 (Ref Range: 20-40 %) 30.9 (Ref Range: 20-40 %) 30.3 (Ref Range: 20-40 %) 17.7 L (Ref Range: 20-40 %) Monocytes Percent Auto 10.8 (Ref Range: 2-11 %) 12.9 H (Ref Range: 2-11 %) 10.6 (Ref Range: 2-11 %) 10.4 (Ref Range: 2-11 %) Eosinophils Percent Auto 1.1 (Ref Range: 0-4 %) 1.3 (Ref Range: 0-4 %) 0.8 (Ref Range: 0-4 %) 0.7 (Ref Range: 0-4 %) Basophils Percent Auto 0.7 (Ref Range: 0-2 %) 0.6 (Ref Range: 0-2 %) 0.6 (Ref Range: 0-2 %) 0.4 (Ref Range: 0-2 %) NRBC Pct Auto 0.0 (Ref Range: 0.0-0.2 /100WBC) 0.0 (Ref Range: 0.0-0.2 /100WBC) 0.0 (Ref Range: 0.0-0.2 /100WBC) 0.0 (Ref Range: 0.0-0.2 /100WBC) Neutrophils Absolute Auto 3.1 (Ref Range: 2.0-8.3 x10*3/uL) 2.8 (Ref Range: 2.0-8.3 x10*3/uL) 3.7 (Ref Range: 2.0-8.3 x10*3/uL) 4.7 (Ref Range: 2.0-8.3 x10*3/uL) Imm Gran Abs Auto 0.02 (Ref Range: 0.00-0.03 X10*3/uL) 0.02 (Ref Range: 0.00-0.03 X10*3/uL) 0.03 (Ref Range: 0.00-0.03 X10*3/uL) 0.03 (Ref Range: 0.00-0.03 X10*3/uL) Lymphocytes Absolute Auto 1.7 (Ref Range: 1.2-4.9 X10*3/uL) 1.6 (Ref Range: 1.2-4.9 X10*3/uL) 2.0 (Ref Range: 1.2-4.9 X10*3/uL) 1.2 (Ref Range: 1.2-4.9 X10*3/uL) Monocytes Absolute Auto [...] (Ref Range: 0.0-0.012 X10*3/uL) Assessment: * Assessment: 1. I TP (idiopathic thrombocytopenic purpura) - D69.3 (Primary) N otes :Her current platelet count is 222,000. She is stable at this time and [...] therapy. No change was made. 6 . O verweight (BMI 25.0-29.9) - E66.3 [...] Follow-up D ietary management education, guidance, and counseling * Follow Up: 3 Weeks (Reason: ov) * Images: * Sign off status: Completed true * Provider: Robyn Day MD Date: 0 07/14/2024 Generated for Brendan lantigua/Chacho/Nicole on: 1 03/24/2024 10:13 AM EST History and Physical Notes * HPI (History of Present Illness) Category Sub-Category Detail Notes Telehealth Location of prov ider rendering services:: {...} [address] [facility] [address] Location of patient:: address listed in demographics [...]
--- OUTSIDE RECORDS SUMMARY | 2024-08-07 06:30 | XMS_ITS ---
Author Organization Gage Day III, MD Address [address] [place] [address] [address] [place] [address] Care Team Providers Care Deputy Sheriff/Investigator Name Role Phone Eveline Gonzalez (Luis) Primary [...] Date Provider Diagnosis Gage Day III, MD [address] [place] [address] [address] MENDOZA, HEMANTH [address] 08/07/2024 Gage Day ITP (idiopathic thrombocytopenic purpura) [...] Provider Name:Gage Day , 01/22/2025 10:30:00 AM, [address] [place] [address], [address], [place], [address], Progress Notes * Zakia GUIDOOB:1950 (73 yo F)Acc No.[id number]:08/07/2024 Patient: Roseann PIÑA Provider: Robyn Day MD :1950 A ge:73 Y S ex:Female Date:08/07/2024 Address:[address] [place] [address] , [facility], [id number] Pcp:Sg Zhong MD Subjective: * Chief Complaints: [...] ocation of provider rendering services: { ...} [address] [place] [address] Drive [address] [facility] [address] L ocation of patient: a ddress listed in demographics for today's visit P atient identification confirmed using: N michelleEDEN asencio T elehealth method: T elephone [...] marrow biopsy and aspirate. Iliac crest 05/2014[place], [facility], [place] Morel, sessile serrated polypoid adenoma with [...] 0 08/07/2024 Generated for Brendan lantigua/Chacho/Nicole on: 1 03/24/2024 10:12 AM EST History and Physical Notes * HPI (History of Present Illness) Category Sub-Category Detail Notes Telehealth Location of [facility] rendering services:: {...} [address] [facility] [address] Location of patient:: address listed in demographics [...]
--- OUTSIDE RECORDS SUMMARY | 2024-08-28 05:00 | XMS_ITS ---
Author Organization Gage Day III, MD Address [address] [place] [address] [address] [place] [address] Care Team Providers Care Concrete Crusher Loader Operator Name Role Phone Eveline Gonzalez (Luis) Primary Care Provider Unavailable Dr. Gage Day III Unavailable Allergies Allergen (clinical drug ingredient) Drug/Non Drug Allergy documented on EMR Reaction Allergy Type Onset Date Status sulfacetamide Sulfacetamide Unknown Drug Allergy Active Penicillin Unknown Drug Allergy Active REASON FOR VISIT Idiopathic thrombocytopenic purpura, Thrombophilia, Lupus anticoagulant, History of DVT and pulmonary embolism, Chronic anticoagulation, Hypertension, Macrocytic anemia Medications Medication SIG (Take, Route, Frequency, Duration) Notes Start Date End Date Status Metoprolol Succinate ER 75 mg 1 tablet [...] use: Nonsmoker Vital Signs Height 67.5 in 08/28/2024 Weight 168 lbs 08/28/2024 BMI 25.92 kg/m2 08/28/2024 Encounters Encounter Location Date Provider Diagnosis Gage Day III, MD [address] [place] [address] [address], [place] [id number] 08/28/2024 Gage Day ITP (idiopathic thrombocytopenic purpura) D69.3 ; Essential hypertension I10 ; Lupus anticoagulant syndrome D68.62 ; Acute pulmonary embolism without acute cor pulmonale, unspecified pulmonary embolism type I26.99 ; Anticoagulated Z79.01 and Macrocytic anemia D53.9 Assessments Encounter Date Diagnosis (ICD Code) Assessment Notes T reatment Notes Treatment Clinical Notes 08/28/2024 ITP (idiopathic thrombocytopenic purpura) (ICD-10 - D69.3) Her current platelet count is 202,000. She is stable at this time and no change in her therapy was needed. She will take 5 mg of prednisone daily. Her next visit will be in 3 weeks after a CBC. 08/28/2024 Essential hypertensi on (ICD-10 - I10) She is managed by primary care and says her blood pressure has been in the normal range. 08/28/2024 Lupus anticoagulant syndrome (ICD-10 - D68.62) She has had no symptoms of blood clots or emboli or bleeding.She remains anticoagulated. 08/28/2024 Acute pulmonary embolism without acute cor pulmonale, unspecified pulmonary embolism type (ICD-10 - I26.99) She has had no bleeding. She continues on her current therapy. 08/28/2024 Anticoagulated (ICD- 10 - Z79.01) She was continued on current therapy. No change was made. 08/28/2024 Macrocytic anemia (ICD-10 - D53.9) She is slowly developing anemia and macrocytosis. Her vitamin B12 and folic acid levels have been normal. Her reticulocyte count is unremarkable. She has had no bleeding. She'll be followed closely for possible myelodysplastic syndrome. Plan Of Treatment Medication Medication Name Sig Start Date Stop Date Notes Metoprolol Succinate ER 75 mg 1 tablet [...] Up: 3 Weeks, Reason: ov Provider Name:Gage Ortega Shay , 01/22/2025 10:30:00 AM, [address] [place] [address] [address], [place], [phone], Progress Notes * Zakia GUIDOOB:1950 (73 yo F)Acc No.[id number]:08/28/2024 Patient: Roseann PIÑA Provider: Robyn Day MD :1950 A ge:73 Y S ex:Female Date:08/28/2024 Address:[address] [place] [address] [facility] [place] [place], [phone] Pcp:Sg Zhong MD Subjective: * Chief Complaints: * I diopathic thrombocytopenic purpuraThrombophilia, Lupus anticoagulantHistory of DVT and pulmonary embolismChronic anticoagulationHypertensionMacrocytic anemia * HPI: * : This telehealth visit took place over 15 minutes with the patient at home and me in my office. She gave consent for billing. She is feeling healthy and well and has had no bleeding or symptoms of clouding. Her platelet count is acceptable. No change in her prednisone dose was made. She will be reevaluated in 21 days. Telehealth L ocation of provider rendering services: { ...} [address] [place] [address] [address] [facility] [address] L ocation of patient: a ddress listed [...] of breath d enies. G astrointestinal: Constipation d enies. D ecreased appetite d enies.?Diarrhea d enies. H eartburn d enies. N ausea d enies. R ectal bleeding?denies. V omiting d enies. H ematology: bruising [...] marrow biopsy and aspirate. Iliac crest 05/2014[place] [facility] [place], sessile serrated polypoid adenoma with [...] Time 07:37 AM 07:18 AM 07:30 AM Order Date 08/06/2024 07/14/2024 06/18/2024 White Blood Count 5.8 (Ref Range: 4.8-10.8 X10*3/uL) 5.5 (Ref Range: 4.8-10.8 X10*3/uL) 5.3 (Ref Range: 4.8-10.8 X10*3/uL) Red Blood Count 3.55 L (Ref Range: 4.20-5.50 X10*6/uL) 3.52 L (Ref Range: 4.20-5.50 X10*6/uL) 3.52 L (Ref Range: 4.20-5.50 X10*6/uL) Hemoglobin 11.5 L (Ref Range: 12.0-16.0 g/dl) 11.5 L (Ref Range: 12.0-16.0 g/dl) 11.4 L (Ref Range: 12.0-16.0 g/dl) Hematocrit 36.3 L (Ref Range: 37.0-47.0 %) 35.5 L (Ref Range: 37.0-47.0 %) 35.3 L (Ref Range: 37.0-47.0 %) Mean Corpuscular Volume 102.3 H (Ref Range: 80.0-98.0 fL) 100.9 H (Ref Range: 80.0-98.0 fL) 100.3 H (Ref Range: 80.0-98.0 fL) Mean Corpuscular Hemoglobin 32.4 (Ref Range: 27.0-33.0 pg) 32.7 (Ref Range: 27.0-33.0 pg) 32.4 (Ref Range: 27.0-33.0 pg) Mean Corpuscular HGB Conc 31.7 (Ref Range: 31.0-35.0 g/dl) 32.4 (Ref Range: 31.0-35.0 g/dl) 32.3 (Ref Range: 31.0-35.0 g/dl) Red Cell Distribution Width 14.5 (Ref Range: 11.0-16.0 %) 14.6 (Ref Range: 11.0-16.0 %) 14.5 (Ref Range: 11.0-16.0 %) Platelet Count 202 (Ref Range: 160-400 X10*3/uL) 222 (Ref Range: 160-400 X10*3/uL) 221 (Ref Range: 160-400 X10*3/uL) Mean Platelet Volume 8.8 L (Ref Range: 9.4-12.3 fL) 8.8 L (Ref Range: 9.4-12.3 fL) 9.0 L (Ref Range: 9.4-12.3 fL) Neutrophils Percent Auto 62.3 (Ref Range: 45-73 %) 56.2 (Ref Range: 45-73 %) 53.9 (Ref Range: 45-73 %) Imm Gran Pct Auto 0.5 H (Ref Range: 0.0-0.4 %) 0.4 (Ref Range: 0.0-0.4 %) 0.4 (Ref Range: 0.0-0.4 %) Lymphocytes Percent Auto 26.2 (Ref Range: 20-40 %) 30.8 (Ref Range: 20-40 %) 30.9 (Ref Range: 20-40 %) Monocytes Percent Auto 9.8 (Ref Range: 2-11 %) 10.8 (Ref Range: 2-11 %) 12.9 H (Ref Range: 2-11 %) Eosinophils Percent Auto 0.9 (Ref Range: 0-4 %) 1.1 (Ref Range: 0-4 %) 1.3 (Ref Range: 0-4 %) Basophils Percent Auto 0.3 (Ref Range: 0-2 %) 0.7 (Ref Range: 0-2 %) 0.6 (Ref Range: 0-2 %) NRBC Pct Auto 0.0 (Ref Range: 0.0-0.2 /100WBC) 0.0 (Ref Range: 0.0-0.2 /100WBC) 0.0 (Ref Range: 0.0-0.2 /100WBC) Neutrophils Absolute Auto 3.6 (Ref Range: 2.0-8.3 x10*3/uL) 3.1 (Ref Range: 2.0-8.3 x10*3/uL) 2.8 (Ref Range: 2.0-8.3 x10*3/uL) Imm Gran Abs Auto 0.03 (Ref Range: 0.00-0.03 X10*3/uL) 0.02 (Ref Range: 0.00-0.03 X10*3/uL) 0.02 (Ref Range: 0.00-0.03 X10*3/uL) Lymphocytes Absolute Auto [...] be followed closely for possible myelodysplastic syndrome. Plan: * Treatment: 2. O thers Continue [...] * Provider: Robyn Day MD Date: 0 08/28/2024 Generated for Brendan lantigua/Chacho/Elizabtehsmitting on: 1 03/24/2024 10:15 AM EST History and Physical Notes * HPI (History of Present Illness) Category Sub-Category Detail Notes Telehealth Location of [facility] rendering services:: {...} [address] [place] [address] [place] [address] Location of patient:: address listed in demographics [...]
--- OUTSIDE RECORDS SUMMARY | 2024-09-18 05:30 | XMS_ITS ---
Author Organization Gage Day III, MD Address [address] [place] [address] [place] [address] Care Team Providers Care Printed Circuit Boards Router Name Role Phone Eveline Gonzalez (Luis) Primary [...] Provider Diagnosis Gage Day III, MD [address] [place] [address] [place] [address] 09/18/2024 Gage Erazorne ITP (idiopathic thrombocytopenic purpura) [...] Provider Name:Gage Day , 01/22/2025 10:30:00 AM, [address] [place] [address], [address], [place], [address], Progress Notes * Zakia GUIDOOB:1950 (73 yo F)Acc No.[id number]:09/18/2024 Patient: Roseann PIÑA Provider: Robyn Day MD :1950 A ge:73 Y S ex:Female Date:09/18/2024 Address:[address] [place] [address] [facility] [id number] Pcp:Eveline Gonzalez ([place]) Subjective: * Chief Complaints: [...] ocation of provider rendering services: { ...} [address] [place] [address] [address] [facility] [address] L ocation of patient: a ddress listed [...] marrow biopsy and aspirate. Iliac crest 05/2014Colonoscopy, [facility], Dr. Morel, sessile serrated polypoid adenoma with [...] 0 09/18/2024 Generated for Efraini ng/Chacho/eTransmitting on: 1 03/24/2024 10:16 AM EST History and Physical Notes * HPI (History of Present Illness) Category Sub-Category Detail Notes Telehealth Location of [facility] rendering services:: {...} [address] [place] [address] [place] [address] Location of patient:: address listed in demographics [...]
--- OUTSIDE RECORDS SUMMARY | 2024-10-09 04:30 | XMS_ITS ---
Author Organization Gage Day III, MD Address [address] [place] [address] [place] [address] Care Team Providers Care Correctional Guard Name Role Phone Eveline Gonzalez (Luis) Primary Care Provider Unavailable Dr. Gage Day III Unavailable Allergies Allergen (clinical drug ingredient) Drug/Non Drug Allergy documented on EMR Reaction Allergy Type Onset Date Status sulfacetamide Sulfacetamide Unknown Drug Allergy Active Penicillin Unknown Drug Allergy Active REASON FOR VISIT ITP, Lupus anticoagulant, History of pulmonary emboli, Chronic anticoagulation, Hypertension, Macrocytic anemia Medications Medication SIG (Take, Route, Frequency, Duration) Notes Start Date End Date Status Levothyroxine Sodium 50 MCG 1 capsule Or ally Once a day Active Rosuvastatin Calcium 5 MG TAKE 1 TABLET BY MOUTH AT BEDTIME Oral Active predniSONE 1 MG TAKE 5 TABLETS [...] Date Provider Diagnosis Gage Day III, MD [address] [place] [address] [place] [address] 10/09/2024 Gage Day ITP (idiopathic thrombocytopenic purpura) D69.3 ; Essential hypertension I10 ; Macrocytic anemia D53.9 ; Anticoagulated Z79.01 ; Lupus anticoagulant syndrome D68.62 and Overweight (BMI 25.0-29.9) E66.3 Assessments Encounter Date Diagnosis (ICD Code) Assessment Notes T reatment Notes Treatment Clinical Notes 10/09/2024 ITP (idiopathic thrombocytopenic purpura) (ICD-10 - D69.3) Her current platelet count is 202,000. She is stable at this time and no change in her therapy was needed. She will take 5 mg of prednisone daily. Her next visit will be in 3 weeks after a CBC. 10/09/2024 Essential hypertensi on (ICD-10 - I10) She is managed by primary care and says her blood pressure has been in the normal range. 10/09/2024 Macrocytic anemia (ICD-10 - D53.9) She is slowly developing anemia and macrocytosis. Her vitamin B12 and folic acid levels have been normal. Her reticulocyte count is unremarkable. She has had no bleeding. She'll be followed closely for possible myelodysplastic syndrome. 10/09/2024 Anticoagulated (ICD- 10 - Z79.01) She was continued on current therapy. No change was made. 10/09/2024 Lupus anticoagulant syndrome (ICD-10 - D68.62) She has had no symptoms of blood clots or emboli or bleeding.She remains anticoagulated. 10/09/2024 Overweight (BMI 25.0-29.9) (ICD-10 - E66.3) She has lost 18 pounds through diet and exercise. She remains only slightly overweight. I suggested she stabilize her weight at this level. Plan Of Treatment Medication Medication Name Sig Start Date Stop Date Notes Levothyroxine Sodium 50 MCG 1 capsule Orally Once a day Rosuvastatin Calcium 5 MG TAKE 1 TABLET BY MOUTH AT BEDTIME Oral predniSONE 1 MG TAKE 5 TABLETS BY MO UTH ONCE DAILY WITH FOOD FOR 30 DAYS Metoprolol Succinate ER 75 mg 1 tablet Orally Once a day Eliquis 5 MG TAKE 1 TABLET BY CHRISTAL TH TWICE A DAY Orally twice a day Next Appt Details Follow Up: 3 Weeks, Reason: Telehealth Provider Name:Gage Day , 01/22/2025 10:30:00 AM, [address] [place] [address] DR, [address], [place], [address], Progress Notes * Zakia GUIDOOB:1950 (73 yo F)Acc No.[id number]:10/09/2024 Patient: Roseann PIÑA Provider: Robyn Day MD :1950 A ge:73 Y S ex:Female Date:10/09/2024 Address:[address] [place] [address] [address]O YARBROUGH, [id number] Pcp:Eveline VillarrealGainesvilleAngelica Gonzalez Subjective: * Chief Complaints: * I TPLupus anticoagulantHistory of pulmonary emboliChronic anticoagulationHypertensionMacrocytic anemia * HPI: * : This telehealth visit took place over 15 minutes with the patient at home and me in my office. She gave consent for billing. She continues on 5 mg of prednisone daily. She has had no acute illnesses since her last visit 3 weeks ago. She says she feels healthy and well. She has had no bleeding. She has been compliant with her medications.Her current platelet count is 202,000. No change in her regimen was made. Another telehealth visit was made for 3 weeks. Telehealth L ocation of provider rendering services: { ...} [address] [place] [address] [address] [facility] [address] L ocation of patient: a ddress listed [...] marrow biopsy and aspirate. Iliac crest 05/2014Colonoscopy, [facility], Dr. Morel, sessile serrated polypoid adenoma [...] Allergies: P enicillinSulfacetamideno[Allergies Verified] Objective: * Vitals: * P ast Orders: Lab:Complete Blood Count Aut o Diff * Collection Date 10/09/2024 09/17/2024 08/28/2024 08/06/2024 07/14/2024 Collection Time 07:38 AM 07:39 AM 07:23 AM 07:37 AM 07:1 8 AM Order Date 10/09/2024 09/17/2024 08/28/2024 08/06/202407/14 White Blood Count 6.1 (Ref Range: 4.8-10.8 X10*3/uL) 6.0 (Ref Range: 4.8-10.8 X10*3/uL) 5.9 (Ref Range: 4.8-10.8 X10*3/uL) 5.8 (Ref Range: 4.8-10.8 X10*3/uL) 5.5 (Ref Range: 4.8-10.8 X10*3/uL) Red Blood Count 3.65 L (Ref Range: 4.20-5.50 X10*6/uL) 3.54 L (Ref Range: 4.20-5.50 X10*6/uL) 3.60 L (Ref Range: 4.20-5.50 X10*6/uL) 3.55 L (Ref Range: 4.20-5.50 X10*6/uL) 3.52 L (Ref Range: 4.20-5.50 X10*6/uL) Hemoglobin 11.7 L (Ref Range: 12.0-16.0 g/dl) 11.4 L (Ref Range: 12.0-16.0 g/dl) 11.5 L (Ref Range: 12.0-16.0 g/dl) 11.5 L (Ref Range: 12.0-16.0 g/dl) 11.5 L (Ref Range: 12.0-16.0 g/dl) Hematocrit 37.4 (Ref Range: 37.0-47.0 %) 35.2 L (Ref Range: 37.0-47.0 %) 36.3 L (Ref Range: 37.0-47.0 %) 36.3 L (Ref Range: 37.0-47.0 %) 35.5 L (Ref Range: 37.0-47.0 %) Mean Corpuscular Volume 102.5 H (Ref Range: 80.0-98.0 fL) 99.4 H (Ref Range: 80.0-98.0 fL) 100.8 H (Ref Range: 80.0-98.0 fL) 102.3 H (Ref Range: 80.0-98.0 fL) 100.9 H (Ref Range: 80.0-98.0 fL) Mean Corpuscular Hemoglobin 32.1 (Ref Range: 27.0-33.0 pg) 32.2 (Ref Range: 27.0-33.0 pg) 31.9 (Ref Range: 27.0-33.0 pg) 32.4 (Ref Range: 27.0-33.0 pg) 32.7 (Ref Range: 27.0-33.0 pg) Mean Corpuscular HGB Conc 31.3 (Ref Range: 31.0-35.0 g/dl) 32.4 (Ref Range: 31.0-35.0 g/dl) 31.7 (Ref Range: 31.0-35.0 g/dl) 31.7 (Ref Range: 31.0-35.0 g/dl) 32.4 (Ref Range: 31.0-35.0 g/dl) Red Cell Distribution Width 14.7 (Ref Range: 11.0-16.0 %) 14.6 (Ref Range: 11.0-16.0 %) 14.5 (Ref Range: 11.0-16.0 %) 14.5 (Ref Range: 11.0-16.0 %) 14.6 (Ref Range: 11.0-16.0 %) Platelet Count 202 (Ref Range: 160-400 X10*3/uL) 193 (Ref Range: 160-400 X10*3/uL) 209 (Ref Range: 160-400 X10*3/uL) 202 (Ref Range: 160-400 X10*3/uL) 222 (Ref Range: 160-400 X10*3/uL) Mean Platelet Volume 8.8 L (Ref Range: 9.4-12.3 fL) 8.5 L (Ref Range: 9.4-12.3 fL) 8.8 L (Ref Range: 9.4-12.3 fL) 8.8 L (Ref Range: 9.4-12.3 fL) 8.8 L (Ref Range: 9.4-12.3 fL) Neutrophils Percent Auto 60.3 (Ref Range: 45-73 %) 61.1 (Ref Range: 45-73 %) 60.5 (Ref Range: 45-73 %) 62.3 (Ref Range: 45-73 %) 56.2 (Ref Range: 45-73 %) Imm Gran Pct Auto 0.3 (Ref Range: 0.0-0.4 %) 0.5 H (Ref Range: 0.0-0.4 %) 0.3 (Ref Range: 0.0-0.4 %) 0.5 H (Ref Range: 0.0-0.4 %) 0.4 (Ref Range: 0.0-0.4 %) Lymphocytes Percent Auto 27.7 (Ref Range: 20-40 %) 27.2 (Ref Range: 20-40 %) 27.5 (Ref Range: 20-40 %) 26.2 (Ref Range: 20-40 %) 30.8 (Ref Range: 20-40 %) Monocytes Percent Auto 9.7 (Ref Range: 2-11 %) 9.7 (Ref Range: 2-11 %) 10.2 (Ref Range: 2-11 %) 9.8 (Ref Range: 2-11 %) 10.8 (Ref Range: 2-11 %) Eosinophils Percent Auto 1.3 (Ref Range: 0-4 %) 1.0 (Ref Range: 0-4 %) 0.8 (Ref Range: 0-4 %) 0.9 (Ref Range: 0-4 %) 1.1 (Ref Range: 0-4 %) Basophils Percent Auto 0.7 (Ref Range: 0-2 %) 0.5 (Ref Range: 0-2 %) 0.7 (Ref Range: 0-2 %) 0.3 (Ref Range: 0-2 %) 0.7 (Ref Range: 0-2 %) NRBC Pct Auto 0.0 (Ref Range: 0.0-0.2 /100WBC) 0.0 (Ref Range: 0.0-0.2 /100WBC) 0.0 (Ref Range: 0.0-0.2 /100WBC) 0.0 (Ref Range: 0.0-0.2 /100WBC) 0.0 (Ref Range: 0.0-0.2 /100WBC) Neutrophils Absolute Auto 3.7 (Ref Range: 2.0-8.3 x10*3/uL) 3.6 (Ref Range: 2.0-8.3 x10*3/uL) 3.6 (Ref Range: 2.0-8.3 x10*3/uL) 3.6 (Ref Range: 2.0-8.3 x10*3/uL) 3.1 (Ref Range: 2.0-8.3 x10*3/uL) Imm Gran Abs Auto 0.02 (Ref Range: 0.00-0.03 X10*3/uL) 0.03 (Ref Range: 0.00-0.03 X10*3/uL) 0.02 (Ref Range: 0.00-0.03 X10*3/uL) 0.03 (Ref Range: 0.00-0.03 X10*3/uL) 0.02 (Ref Range: 0.00-0.03 X10*3/uL) Lymphocytes Absolute Auto 1.7 (Ref Range: 1.2-4.9 X10*3/uL) 1.6 (Ref Range: 1.2-4.9 X10*3/uL) 1.6 (Ref Range: 1.2-4.9 X10*3/uL) 1.5 (Ref Range: 1.2-4.9 X10*3/uL) 1.7 (Ref Range: 1.2-4.9 X10*3/uL) Monocytes Absolute Auto [...] been in the normal range. 3 . M acrocytic anemia - D53.9 N otes :She is slowly developing anemia and macrocytosis. Her vitamin B12 and folic acid levels have been normal. Her reticulocyte count is unremarkable. She has had no bleeding. She'll be followed closely for possible myelodysplastic syndrome. 4 . A nticoagulated - Z79.01 N otes :She was continued on current therapy. No change was made. 5 . L upus anticoagulant syndrome - D68.62 N otes :She has had no symptoms of blood clots or emboli or bleeding.She remains anticoagulated. 6 . O verweight (BMI 25.0-29.9) - [...] 8012 SYNCH AUDIO-ONLY EST SF 10 * Follow Up: 3 Weeks (Reason: Telehealth) * Images: * Sign off status: Completed true * Provider: Robyn Day MD Date: 0 10/09/2024 Generated for Brendan lantigua/Chacho/Jyothiitting on: 1 03/24/2024 10:14 AM EST History and Physical Notes * HPI (History of Present Illness) Category Sub-Category Detail Notes Telehealth Location of [facility] rendering services:: {...} [address] [place] [address] Location of patient:: address listed in demographics [...]
--- OUTSIDE RECORDS SUMMARY | 2024-10-30 04:15 | XMS_ITS ---
Author Organization Gage Day III, MD Address [address] [place] [address] [address] [place] [address] Care Team Providers Care Clinical Trials Data Coordinator Name Role Phone Eveline Gonzalez (Luis) Primary Care Provider Unavailable Dr. Gage Day III Unavailable [phone] Allergies Allergen (clinical drug ingredient) Drug/Non Drug Allergy documented on EMR Reaction Allergy Type Onset Date Status sulfacetamide Sulfacetamide Unknown Drug Allergy Active Penicillin Unknown Drug Allergy Active REASON FOR VISIT Idiopathic thrombocytopenic purpura, Thrombophilia, Lupus anticoagulant, History of pulmonary embolism, Hypertension, chronic anticoagulation Medications Medication SIG (Take, Route, Frequency, Duration) [...] MOUTH AT BEDTIME Oral Active Social History Tobacco Use: Social History Observation Description Date Details (start date - stop date) Never Smoker NA - NA Sex Assigned At : Social History Observation Description Sex Assigned At Female Tobacco Control (Standard) Question Answer Notes Tobacco use: Nonsmoker Problems Problem Type SNOMED Code ICD Code Onset Dates Problem Status W/U Status Risk Notes Problem 017793766 Overweight (E66.3) Active confirmed We have discussed lifestyle modification in her diet and nutrition today. She will try to lose weight and 1/2 pound per week. Vital Signs Height 67.5 in 10/30/2024 Weight 168 lbs 10/30/2024 BMI 25.92 kg/m2 10/30/2024 Encounters Encounter Location Date Provider Diagnosis Gage Day III, MD [address] [place] [address] [address], [place] [address] 10/30/2024 Gage Day ITP (idiopathic thrombocytopenic purpura) D69.3 ; Overweight E66.3 ; Lupus anticoagulant syndrome D68.62 ; Macrocytic anemia D53.9 and Acute pulmonary embolism without acute cor pulmonale, unspecified pulmonary embolism type I26.99 Assessments Encounter Date Diagnosis (ICD Code) Assessment Notes T reatment Notes Treatment Clinical Notes 10/30/2024 ITP (idiopathic thrombocytopenic purpura) (ICD-10 - D69.3) Her current platelet count is 202,000. She is stable at this time and no change in her therapy was needed. She will take 5 mg of prednisone daily. Her next visit will be in 3 weeks after a CBC. 10/30/2024 Overweight (ICD-10 - E66.3) We have discussed lifestyle modification in her diet and nutrition today. She will try to lose weight and 1/2 pound per week. 10/30/2024 Lupus anticoagulant syndrome (ICD-10 - D68.62) She has had no symptoms of blood clots or emboli or bleeding.She remains anticoagulated. 10/30/2024 Macrocytic anemia (ICD-10 - D53.9) She is slowly developing anemia and macrocytosis. Her vitamin B12 and folic acid levels have been normal. Her reticulocyte count is unremarkable. She has had no bleeding. She'll be followed closely for possible myelodysplastic syndrome. 10/30/2024 Acute pulmonary embolism without acute cor pulmonale, [...] Provider Name:Gage Day , 01/22/2025 10:30:00 AM, [address] [place] [address] [address], [address], [place], [address], Progress Notes * Zakia GUIDOOB:1950 (73 yo F)Acc No.[id number]:10/30/2024 Patient: Roseann PIÑA Provider: Robyn Day MD :1950 A ge:73 Y S ex:Female Date:10/30/2024 Address:[address] [place] [address] [address], [id number] Pcp:Eveline Singerfield) O'alba Subjective: * Chief Complaints: * I diopathic thrombocytopenic purpuraThrombophiliaLupus anticoagulantHistory of pulmonary embolismHypertensionChronic anticoagulation * HPI: * : This telehealth visit took place over 15 minutes with the patient at home and me in my office. She gave consent for billing.Her platelet count is now 202,000. Her prednisone dose was kept unchanged. Follow-up visit in 21 days after CBC was arranged. She has had no signs or symptoms of blood clotting or pulmonary emboli or bleeding. She is avoiding aspirin. Telehealth L ocation of provider rendering services: { ...} [address] [place] [address] Drive [address] [facility] [address] L ocation of patient: marcos ddress listed [...] biopsy and aspirate. Iliac crest 05/2014[place] [facility] [place], sessile serrated polypoid adenoma with [...] Count Aut o Diff * Collection Date 10/29/2024 10/09/2024 09/17/2024 08/28/2024 08/06/2024 Collection Time 08:00 AM 07:38 AM 07:39 AM 07:23 AM 07:3 7 AM Order Date 10/29/2024 10/09/2024 09/17/2024 08/28/202408/06 White Blood Count 6.1 (Ref Range: 4.8-10.8 X10*3/uL) 6.1 (Ref Range: 4.8-10.8 X10*3/uL) 6.0 (Ref Range: 4.8-10.8 X10*3/uL) 5.9 (Ref Range: 4.8-10.8 X10*3/uL) 5.8 (Ref Range: 4.8-10.8 X10*3/uL) Red Blood Count 3.41 L (Ref Range: 4.20-5.50 X10*6/uL) 3.65 L (Ref Range: 4.20-5.50 X10*6/uL) 3.54 L (Ref Range: 4.20-5.50 X10*6/uL) 3.60 L (Ref Range: 4.20-5.50 X10*6/uL) 3.55 L (Ref Range: 4.20-5.50 X10*6/uL) Hemoglobin 11.0 L (Ref Range: 12.0-16.0 g/dl) 11.7 L (Ref Range: 12.0-16.0 g/dl) 11.4 L (Ref Range: 12.0-16.0 g/dl) 11.5 L (Ref Range: 12.0-16.0 g/dl) 11.5 L (Ref Range: 12.0-16.0 g/dl) Hematocrit 34.2 L (Ref Range: 37.0-47.0 %) 37.4 (Ref Range: 37.0-47.0 %) 35.2 L (Ref Range: 37.0-47.0 %) 36.3 L (Ref Range: 37.0-47.0 %) 36.3 L (Ref Range: 37.0-47.0 %) Mean Corpuscular Volume 100.3 H (Ref Range: 80.0-98.0 fL) 102.5 H (Ref Range: 80.0-98.0 fL) 99.4 H (Ref Range: 80.0-98.0 fL) 100.8 H (Ref Range: 80.0-98.0 fL) 102.3 H (Ref Range: 80.0-98.0 fL) Mean Corpuscular Hemoglobin 32.3 (Ref Range: 27.0-33.0 pg) 32.1 (Ref Range: 27.0-33.0 pg) 32.2 (Ref Range: 27.0-33.0 pg) 31.9 (Ref Range: 27.0-33.0 pg) 32.4 (Ref Range: 27.0-33.0 pg) Mean Corpuscular HGB Conc 32.2 (Ref Range: 31.0-35.0 g/dl) 31.3 (Ref Range: 31.0-35.0 g/dl) 32.4 (Ref Range: 31.0-35.0 g/dl) 31.7 (Ref Range: 31.0-35.0 g/dl) 31.7 (Ref Range: 31.0-35.0 g/dl) Red Cell Distribution Width 14.7 (Ref Range: 11.0-16.0 %) 14.7 (Ref Range: 11.0-16.0 %) 14.6 (Ref Range: 11.0-16.0 %) 14.5 (Ref Range: 11.0-16.0 %) 14.5 (Ref Range: 11.0-16.0 %) Platelet Count 202 (Ref Range: 160-400 X10*3/uL) 202 (Ref Range: 160-400 X10*3/uL) 193 (Ref Range: 160-400 X10*3/uL) 209 (Ref Range: 160-400 X10*3/uL) 202 (Ref Range: 160-400 X10*3/uL) Mean Platelet Volume 8.9 L (Ref Range: 9.4-12.3 fL) 8.8 L (Ref Range: 9.4-12.3 fL) 8.5 L (Ref Range: 9.4-12.3 fL) 8.8 L (Ref Range: 9.4-12.3 fL) 8.8 L (Ref Range: 9.4-12.3 fL) Neutrophils Percent Auto 65.8 (Ref Range: 45-73 %) 60.3 (Ref Range: 45-73 %) 61.1 (Ref Range: 45-73 %) 60.5 (Ref Range: 45-73 %) 62.3 (Ref Range: 45-73 %) Imm Gran Pct Auto 0.7 H (Ref Range: 0.0-0.4 %) 0.3 (Ref Range: 0.0-0.4 %) 0.5 H (Ref Range: 0.0-0.4 %) 0.3 (Ref Range: 0.0-0.4 %) 0.5 H (Ref Range: 0.0-0.4 %) Lymphocytes Percent Auto 22.0 (Ref Range: 20-40 %) 27.7 (Ref Range: 20-40 %) 27.2 (Ref Range: 20-40 %) 27.5 (Ref Range: 20-40 %) 26.2 (Ref Range: 20-40 %) Monocytes Percent Auto 10.2 (Ref Range: 2-11 %) 9.7 (Ref Range: 2-11 %) 9.7 (Ref Range: 2-11 %) 10.2 (Ref Range: 2-11 %) 9.8 (Ref Range: 2-11 %) Eosinophils Percent Auto 1.0 (Ref Range: 0-4 %) 1.3 (Ref Range: 0-4 %) 1.0 (Ref Range: 0-4 %) 0.8 (Ref Range: 0-4 %) 0.9 (Ref Range: 0-4 %) Basophils Percent Auto 0.3 (Ref Range: 0-2 %) 0.7 (Ref Range: 0-2 %) 0.5 (Ref Range: 0-2 %) 0.7 (Ref Range: 0-2 %) 0.3 (Ref Range: 0-2 %) NRBC Pct Auto 0.0 (Ref Range: 0.0-0.2 /100WBC) 0.0 (Ref Range: 0.0-0.2 /100WBC) 0.0 (Ref Range: 0.0-0.2 /100WBC) 0.0 (Ref Range: 0.0-0.2 /100WBC) 0.0 (Ref Range: 0.0-0.2 /100WBC) Neutrophils Absolute Auto 4.0 (Ref Range: 2.0-8.3 x10*3/uL) 3.7 (Ref Range: 2.0-8.3 x10*3/uL) 3.6 (Ref Range: 2.0-8.3 x10*3/uL) 3.6 (Ref Range: 2.0-8.3 x10*3/uL) 3.6 (Ref Range: 2.0-8.3 x10*3/uL) Imm Gran Abs Auto 0.04 H (Ref Range: 0.00-0.03 X10*3/uL) 0.02 (Ref Range: 0.00-0.03 X10*3/uL) 0.03 (Ref Range: 0.00-0.03 X10*3/uL) 0.02 (Ref Range: 0.00-0.03 X10*3/uL) 0.03 (Ref Range: 0.00-0.03 X10*3/uL) Lymphocytes Absolute Auto 1.3 (Ref Range: 1.2-4.9 X10*3/uL) 1.7 (Ref Range: [...] 3 weeks after a CBC. 2 . O verweight - E66.3 N otes :We have discussed lifestyle modification in her diet and nutrition today. She will try to lose weight and 1/2 pound per week. 3 . L upus anticoagulant syndrome - D68.62 N otes :She has had no symptoms of blood clots or emboli or bleeding.She remains anticoagulated. 4 . M acrocytic anemia - D53.9 N otes :She is slowly developing anemia and macrocytosis. Her vitamin B12 and folic acid levels have been normal. Her reticulocyte count is unremarkable. She has had no bleeding. She'll be followed closely for possible myelodysplastic syndrome. 5 . A cute pulmonary embolism without acute cor pulmonale, unspecified pulmonary embolism type - I26.99 N otes :She has had no bleeding. She continues on her current therapy. Plan: * Treatment: 2. O thers Continue [...] * Provider: Robyn Day MD Date: 0 10/30/2024 Generated for Brendan lantigua/Chacho/Jyothiitting on: 1 03/24/2024 10:13 AM EST History and Physical Notes * HPI (History of Present Illness) Category Sub-Category Detail Notes [facility] {...} [address] [place] [id number] Location of patient:: address listed in demographics [...]
--- OUTSIDE RECORDS SUMMARY | 2024-11-27 04:30 | XMS_ITS ---
Author Organization Gage Day III, MD Address [address] [place] [address] [address] [place] [address] Care Team Providers Care Glass Artist Name Role Phone Eveline Gonzalez (Luis) Primary [...] 1 MG TAKE 5 TABLETS BY MO AZH ONCE DAILY WITH FOOD FOR 30 DAYS [...] Date Provider Diagnosis Gage Day III, MD [address] [place] [address] [place] [address] 11/27/2024 Gage Day ITP (idiopathic thrombocytopenic purpura) [...] Provider Name:Gage Day , 01/22/2025 10:30:00 AM, [address] [place] [address] , [place] [address], [place], [address], Progress Notes * Zakia GUIDOOB:1950 (74 yo F)Acc No.[id number]:11/27/2024 Progress Notes Patient: Roseann PIÑA Provider: Robyn Day MD :1950 A ge:74 Y S ex:Female Date:11/27/2024 Address:[address] [place] [address] [facility] [id number] Pcp:Eveline VillarrealGlend[place]) Sydnee'alba Subjective: * Chief Complaints: * I [...] marrow biopsy and aspirate. Iliac crest 05/2014Colonoscopy, [facility], Dr. Morel, sessile serrated polypoid [...] MD Date: Generated for Brendan lantigua/Chacho/Nicole on: 03/24/2024 10:16 AM EST History and Physical [...]
--- OUTSIDE RECORDS SUMMARY | 2024-12-25 04:45 | XMS_ITS ---
Author Organization Gage Day III, MD Address [address] [place] [address] [address] [place] [address] Care Team Providers Care Pensionholder Information Clerk Name Role Phone Eveline Gonzalez (Luis) Primary Care Provider Unavailable Dr. Gage Day III Unavailable [phone] Allergies Allergen (clinical drug ingredient) Drug/Non Drug Allergy documented on EMR Reaction Allergy Type Onset Date Status sulfacetamide Sulfacetamide Unknown Drug Allergy Active Penicillin Unknown Drug Allergy Active REASON FOR VISIT Idiopathic thrombocytopenic purpura, Hypertension, History of pulmonary embolism, Lupus anticoagulant, Macrocytic anemia, Chronic anticoagulation Medications Medication SIG (Take, Route, Frequency, [...] use: Nonsmoker Vital Signs Height 67.5 in 12/25/2024 Weight 181 lbs 12/25/2024 BMI 27.93 kg/m2 12/25/2024 Encounters Encounter Location Date Provider Diagnosis Gage Day III, MD [address] [place] [address] [address] [place], [place] [address] 12/25/2024 Gage Day ITP (idiopathic thrombocytopenic purpura) D69.3 ; Overweight E66.3 ; Essential hypertension I10 ; Acute pulmonary embolism without acute cor pulmonale, unspecified pulmonary embolism type I26.99 ; Lupus anticoagulant syndrome D68.62 ; Anticoagulated Z79.01 and Macrocytic anemia D53.9 Assessments Encounter Date Diagnosis (ICD Code) Assessment Notes Treat ment Notes Treatment Clinical Notes 12/25/2024 ITP (idiopathic thrombocytopenic purpura) (ICD-10 - D69.3) Her current platelet count is 203,000. She is stable at this time and no change in her therapy was needed. She will take 5 mg of prednisone daily. Her next visit will be in 3 weeks after a CBC. 12/25/2024 Overweight (ICD-10 - E66.3) We have discussed lifestyle modification in her diet and nutrition today. She will try to lose weight and 1/2 pound per week. 12/25/2024 Essential hypertensi on (ICD-10 - I10) She is managed by primary care and says her blood pressure has been in the normal range. 12/25/2024 Acute pulmonary embolism without acute cor pulmonale, unspecified pulmonary embolism type (ICD-10 - I26.99) She has had no bleeding. She continues on her current therapy. 12/25/2024 Lupus anticoagulant syndrome (ICD-10 - D68.62) She has had no symptoms of blood clots or emboli or bleeding.She remains anticoagulated. 12/25/2024 Anticoagulated (ICD- 10 - Z79.01) She was continued on current therapy. No change was made. 12/25/2024 Macrocytic anemia (ICD-10 - D53.9) Her values [...] Provider Name:Gage Day , 01/22/2025 10:30:00 AM, [address] [place] [address], [facility] [address], [place], [address], Progress Notes * Zakia GUIDOOB:1950 (74 yo F)Acc No.[id number]:12/25/2024 Patient: Roseann PIÑA Provider: Robyn Day MD :1950 A ge:74 Y S ex:Female Date:12/25/2024 Address:[address] [place] [address] [facility] [id number] Pcp:Eveline [place]Saint [place]) Sydnee'alba Subjective: * Chief Complaints: * I diopathic thrombocytopenic purpuraHypertensionHistory of pulmonary embolismLupus anticoagulantMacrocytic anemiaChronic anticoagulation * HPI: * : This telehealth visit place over 15 minutes with the patient at home and me in my office.? She gave consent for billing. She is taking 5 mg of prednisone daily. Platelet count is 203,000. She is compliant with the anticoagulation. She has had no bleeding. No change in her regimen was made. A CBC will be done in 4 weeks followed by medical management. Telehealth L ocation of provider rendering services: { ...} [address] [place] [address] Drive [address] [facility] [address] L ocation of patient: marcos ddress listed [...] marrow biopsy and aspirate. Iliac crest 05/2014[place] [facility], sessile serrated polypoid adenoma with [...] * Vitals: H t: 67.5, Wt:181, BMI:27.93, Ht-cm: 171.45, Wt-k.1. Assessment: * Assessment: 1. I TP (idiopathic thrombocytopenic purpura) - D69.3 (Primary) N otes :Her current platelet count is 203,000. She is stable at this time and [...] true * Provider: Robyn Day MD Date: 02/25/2024 Generated for Brendan lantigua/Chacho/Nicole on: 03/24/2024 10:14 AM EST History and Physical Notes * HPI (History of Present Illness) Category Sub-Category Detail Notes Telehealth Location of [facility] rendering services:: {...} [address] [place] [address] [place] [id number] Location of patient:: address listed in demographics [...]
--- OUTSIDE RECORDS SUMMARY | 2025-01-21 08:15 | XMS_ITS | Encounter Summary ---
Author Organization [facility] Address [address] [place] [address] Care Team Providers Care Waste Examiner Name Role Phone Eveline Hagen MD Primary Care Provider [phone] Reason for Visit * Imaging (Routine) - Authorized Specialty Diagnoses / Procedures Referred By Michael mendoza Referred To Contact Radiology Diagnoses Encounter for screening mammogram for breast cancer Procedures MG Mammo Digital Screening w Bob bilat MG Mammo Digital Screening bilat [facility], Self Referral [facility] Referral ID Status Reason Start Date Expiration Date V isits Requested Visits Authorized [id number] Authorized 12/21/2024 12/21/2025 1 1 Encounter Details Date Type Department Care Team (Latest Contact Info) Description 01/21/2025 8:15 AM EST Hospital Encounter [facility] [address] [address] Encounter for screening mammogram for breast cancer Social History Tobacco Use Types Packs/Day Years Used Date Smoking Tobacco: Never Assessed Comments No Sex and Gender Information Value Date Recorded Sex Assigned at Not on file Legal Sex Female 1:22 AM EST Gender Identity Not on file Sexual Orientation Not on file documented as of this encounter Plan of Treatment Pending Results Name Type Priority Associated Diagnoses Date /Time MG Mammo Digital Screening w Bob bilat Imaging Routine Encounter for screening mammogram for breast cancer 01/21/2025 8:43 AM EST Scheduled Orders Name Type Priority Associated Diagnoses Orde r Schedule MG Mammo Digital Screening w Bob bilat Imaging Routine Encounter for screening mammogram for breast cancer Once for 1 Occurrences starting 01/21/2025 until 01/21/2025 documented as of this encounter Visit Diagnoses Diagnosis Encounter for screening mammogram for breast cancer documented in this encounter Care Teams Waste Examiner Relationship Specialty Start Date End Date Eveline Hagen MD [address] [place], [place] [id number] PCP - General Internal Medicine 01/08/25 documented as of this encounter
[2025-01-21 09:22] LABS: MANUAL DIFF FLAG NO
[2025-01-21 09:44] LABS: Hematocrit 38.3 % (37.0-47.0); Hemoglobin 12.2 g/dl (12.0-16.0); Imm Gran Abs Auto 0.04 X10*3/uL (0.00-0.03); Imm Gran Pct Auto 0.5 % (0.0-0.4); Lymphocytes Absolute Auto 1.3 X10*3/uL (1.2-4.9); Mean Corpuscular HGB Conc 31.9 g/dl (31.0-35.0); Mean Corpuscular Hemoglobin 32.6 pg (27.0-33.0); Mean Corpuscular Volume 102.4 fL (80.0-98.0); NRBC Abs Auto 0.000 X10*3/uL (0.0-0.012); NRBC Pct Auto 0.0 /100WBC (0.0-0.2); Platelet Count 215 X10*3/uL (160-400); Red Blood Count 3.74 X10*6/uL (4.20-5.50); White Blood Count 7.9 X10*3/uL (4.8-10.8)
--- OUTSIDE RECORDS SUMMARY | 2025-01-21 10:15 | XMS_ITS | Clinical Summary ---
Author Organization [facility] Address [address] [place] [address] Phone Care Team Providers Care Quality Assurance Representative Name Role Phone Eveline Hagen MD Primary Care Provider [phone] Encounters Date Type Department Care Team Description 01/21/2025 8:15 AM EST Hospital Encounter [facility] [address] [address] Encounter for screening mammogram for breast cancer from Last 3 Months Surgical History Surgery [...] year. Mammo Location: [facility], [address] [place] [address], [phone], . -------- FINAL REPORT -------- Dictated By: Kaity Jackson Dictated Date: 01/06/2024 08:14 ET Assigned Physician: Kaity Jackson Reviewed and Electronically Signed By: Kaity Jackson Signed Date: 01/06/2024 08:15 ET Workstation ID: [id number] Transcribed By: Self Edit Transcribed Date: 01/06/2024 08:14 ET Narrative 01/06/2024 8:15 AM EST HISTORY: Screening. Right breast biopsy in 2013, pathology benign. COMPARISON: 12/25/22, 12/21/22, 07/04/21, 09/21/19, 10/04/17 TECHNIQUE: Bilateral digital breast tomosynthesis was performed in the CC and MLO projections. Computer aided detection with Agensys AI 3D 3.1 was employed. BREAST DENSITY: [...] CCand MLO projections. Computer aided detection with Agensys AI 3D 3.1was employed. BREAST DENSITY: B [...] year. Mammo Location: [facility], [address] [place] [address], [phone], . -------- FINAL REPORT -------- Dictated By: Kaity Jackson Dictated Date: 01/06/2024 08:14 ET Assigned Physician: Kaity Jackson Reviewed and Electronically Signed By: Kaity Jackson Signed Date: 01/06/2024 08:15 ET Workstation ID: [id number] Transcribed By: Self Edit Transcribed Date: 01/06/2024 08:14 ET us Sg Zhong MD IMG BI PROCEDURES Final Result * TEJAL DEXA AXIAL SKELETON (08/22/2022 11:35 AM EDT) Anatomical Region Laterality Modality Mammography 08/22/2022 9:55 AM EDT Narrative 08/22/2022 11:35 AM EDT [facility] Diagnostic Imaging Department [address] [place] [address] Patient: ROSEANN GUIDO D.O.B./Age/Sex: 1950 - 71 - F Unit#: [id number] Location/Status: SPDIMAM/REG CLI Mnemonic/Ordering Site: MAMDEXAAX/SPMAM Ordering Physician: ELLEN [...] probability of hip fracture of 6.9%. Code 09905 Dictating Physician: RODNEY IRELAND MD Electronically Signed by: RODNEY IRELAND MD Dic Date/Time: 08/22/22 1134 Sign date/Time: 08/22/22 1135 Procedure Note Rodney Ireland MD - 03/26/2023 [facility] Diagnostic Imaging Department [address] [place] [address] Patient: ROSEANN GUIDO /Age/Sex: 1950 - 71 - F Unit#: [id number] Location/Status: [facility] CLI Mnemonic/Ordering Site: [facility] Ordering Physician: ELLEN DAY MD Tejal Dexa [...] density of the femurs bilaterally is 0.903 gm/[id number] is 90% of that of young normals [...] probability of hip fracture of 6.9%. Code 49233 Dictating Physician: RODNEY IRELAND MD Electronically Signed by: RODNEY IRELAND MD Dic Date/Time: 08/22/22 1134 Sign date/Time: 08/22/22 1135 Ellen Day MD IMG BI PROCEDURES Final Result from Last 3 Months or Most Recently Relevant to [place] [phone] MEDICARE [facility] Care Teams Quality Assurance Representative Relationship Specialty Start Date End Date Eveline Hagen MD [address] [place] [address] [place] [phone] PCP - General Internal Medicine 01/08/25
--- OUTSIDE RECORDS SUMMARY | 2025-01-21 10:16 | XMS_ITS | Patient Health Record ---
Author Organization Gage Day III, MD Address [address] [place] [address] [address] [place] [address] Care Team Providers Care Copra Processor Name Role Phone Eveline Gonzalez (Luis) Primary Care Provider Unavailable Dr. Gage Day III Unavailable [phone] Allergies Allergen (clinical drug ingredient) Drug/Non Drug Allergy documented on EMR Reaction Allergy Type Onset Date Status sulfacetamide Sulfacetamide Unknown Drug Allergy Active Penicillin Unknown Drug Allergy Active Results Component Value Reference Range Notes Complete Blood Count Auto Di ff Reviewed date:02/18/2024 11:38:47 AM Interpretation: Performing Lab:[facility], [address] [place] [address] Notes/Report: White Blood Count 8.2 4.8-10.8 X10*3/uL [...] ff Reviewed date:03/15/2024 11:27:38 AM Interpretation: Performing Lab:[facility], [address] [place] [phone] Notes/Report: White Blood Count 5.9 4.8-10.8 X10*3/uL [...] ff Reviewed date:04/08/2024 03:44:55 PM Interpretation: Performing Lab:[facility], [address] [place] [phone] Notes/Report: White Blood Count 6.4 4.8-10.8 X10*3/uL [...] ff Reviewed date:05/02/2024 07:51:00 PM Interpretation: Performing Lab:[facility], [address] [place] [phone] Notes/Report: White Blood Count 6.7 4.8-10.8 X10*3/uL [...] ff Reviewed date:05/28/2024 08:11:51 PM Interpretation: Performing Lab:[address] [address] Notes/Report: White Blood Count 6.4 4.8-10.8 X10*3/uL [...] ff Reviewed date:06/20/2024 08:47:21 PM Interpretation: Performing Lab:[facility], [address] [place] [phone] Notes/Report: White Blood Count 5.3 4.8-10.8 X10*3/uL [...] ff Reviewed date:07/14/2024 09:33:35 AM Interpretation: Performing Lab:[facility], [address] [place] [phone] Notes/Report: White Blood Count 5.5 4.8-10.8 X10*3/uL [...] ff Reviewed date:08/07/2024 02:06:03 PM Interpretation: Performing Lab:[facility], [address] [place] [phone] Notes/Report: White Blood Count 5.8 4.8-10.8 X10*3/uL [...] ff Reviewed date:08/28/2024 11:04:41 AM Interpretation: Performing Lab:[facility], [address] [place] [phone] Notes/Report: White Blood Count 5.9 4.8-10.8 X10*3/uL [...] ff Reviewed date:09/17/2024 08:13:42 PM Interpretation: Performing Lab:[facility], [address] [place] [phone] Notes/Report: White Blood Count 6.0 4.8-10.8 X10*3/uL [...] ff Reviewed date:10/09/2024 09:52:49 AM Interpretation: Performing Lab:[facility], [address] [place] [phone] Notes/Report: White Blood Count 6.1 4.8-10.8 X10*3/uL [...] ff Reviewed date:10/30/2024 05:45:17 AM Interpretation: Performing Lab:[facility], [address] [place] [phone] Notes/Report: White Blood Count 6.1 4.8-10.8 X10*3/uL [...] ff Reviewed date:11/25/2024 04:30:20 PM Interpretation: Performing Lab:[facility], [address] [place] [phone] Notes/Report: White Blood Count 8.3 4.8-10.8 X10*3/uL [...] Complete Blood Count Auto Di ff Reviewed date:12/27/2024 08:07:03 AM Interpretation: Performing Lab:[facility], [address] [place] [phone] Notes/Report: White Blood Count 6.1 4.8-10.8 X10*3/uL Red Blood Count 3.58 4.20-5.50 X10*6/uL Hemoglobin 11.3 12.0-16.0 g/dl Hematocrit 37.1 37.0-47.0 % Mean Corpuscular Volume 103.6 80.0-98.0 fL Mean Corpuscular Hemoglobin 31.6 27.0-33.0 pg Mean Corpuscular HGB Conc 30.5 31.0-35.0 g/dl Red Cell Distribution Width 14.6 11.0-16.0 % Platelet Count 208 160-400 X10*3/uL Mean Platelet Volume 9.1 9.4-12.3 fL Neutrophils Percent Auto 63.1 45-73 % Imm Gran Pct Auto 0.7 0.0-0.4 % Lymphocytes Percent Auto 24.3 20-40 % Monocytes Percent Auto 10.7 2-11 % Eosinophils Percent Auto 0.7 0-4 [...] X10*3/uL Complete Blood Count Auto Di ff (Not yet reviewed by provider) Interpretation: Performing Lab:[facility], [address] [place] [phone] Notes/Report: White Blood Count 7.9 4.8-10.8 X10*3/uL Red Blood Count 3.74 4.20-5.50 X10*6/uL Hemoglobin 12.2 12.0-16.0 g/dl Hematocrit 38.3 37.0-47.0 % Mean Corpuscular Volume 102.4 80.0-98.0 fL Mean Corpuscular Hemoglobin 32.6 27.0-33.0 pg Mean Corpuscular HGB Conc 31.9 31.0-35.0 g/dl Red Cell Distribution Width 14.4 11.0-16.0 % Platelet Count 215 160-400 X10*3/uL Mean Platelet Volume 8.7 9.4-12.3 fL Neutrophils Percent Auto 74.2 45-73 % Imm Gran Pct Auto 0.5 0.0-0.4 % Lymphocytes Percent Auto 15.9 20-40 % Monocytes Percent Auto 8.3 2-11 % Eosinophils Percent Auto 0.5 0-4 % Basophils Percent Auto 0.6 0-2 % NRBC Pct Auto 0.0 0.0-0.2 /100WBC Neutrophils Absolute Auto 5.9 2.0-8.3 x10*3/u L Imm Gran Abs Auto 0.04 0.00-0.03 X10*3/uL Lymphocytes Absolute Auto 1.3 1.2-4.9 X10*3/u L Monocytes Absolute Auto 0.7 0.1-1.2 X10*3/uL Eosinophils Absolute Auto 0.0 0.0-0.4 X10*3/u L Basophils Absolute Auto 0.1 [...] TAKE 5 TABLETS BY [facility] ONCE DAILY WITH FOOD FOR 30 [...] Problem Status W/U Status Risk Notes Problem 496833810 Overweight (E66.3) Active confirmed We have discussed lifestyle modification in her diet and nutrition today. She will try to lose weight and 1/2 pound per week. Problem 16735200 Allergy to sulfa drugs (Z88.2) Active confirmed Problem Lupus anticoagulant disorder (86999207) Lupus anticoagulant syndrome (D68.62) Active confirmed She has freitas d no symptoms of blood clots or emboli or bleeding.She remains anticoagulate d. Problem 323691581 Anticoagulated (Z79.01) Active confirmed She was continued on current therapy. No change was made. Problem 39158644 ITP (idiopathic thrombocytopenic purpura) (D69.3) Active confirmed Her current platelet count is 203,000. She is stable at this time and no change in her therapy was needed. She will take 5 mg of prednisone daily. Her next visit will be in 3 weeks after a CBC. Problem 04536921 Essential hypertension (I10) Active confirmed She is managed by primary care and says her blood pressure has been in the normal range. Problem 564527561717557 History of herpe s zoster (Z86.19) Active confirmed No treatment is required for this historical event. Problem 106098441 Allergy history, penicillin (Z88.0) Active confirmed Problem 08440691 Macrocytic anemi a (D53.9) Active confirmed Her values are stable today. His hematocrit is 37% and the mean cell volume elevated at 101.6. This is being evaluated but is not progressive. Problem 357195345 Acute pulmonary embolism without acute cor pulmonale, unspecified pulmonary embolism type (I26.99) Active confirmed She has had no bleeding. She continues on her current therapy. Vital Signs Heart Rate 67 /min 11/27/2024 Temperature 97.9 degrees Fahrenheit 11/27/2024 Blood pressure diastolic 79 mm Hg 11/27/2024 Height 67.5 in 12/25/2024 Blood pressure systolic 134 mm Hg 11/27/2024 Weight 181 lbs 12/25/2024 BMI 27.93 kg/m2 12/25/2024 Encounters Encounter Location Date Provider Diagnosis Gage Day III, MD [address] [place] [address] DR [place], [place] [phone] 01/22/2024 Gaeg Day ITP (idiopathic thrombocytopenic purpura) D69.3 ; Essential hypertension I10 ; Overweight E66.3 ; Lupus anticoagulant syndrome D68.62 ; Acute pulmonary embolism without acute cor pulmonale, unspecified pulmonary embolism type I26.99 and Anticoagulated Z79.01 Gage Day III, MD [address] [place] [address] [place] [address] 02/21/2024 Gage Day ITP (idiopathic thrombocytopenic purpura) D69.3 ; Essential hypertension I10 ; Overweight E66.3 ; Lupus anticoagulant syndrome D68.62 and Acute pulmonary embolism without acute cor pulmonale, unspecified pulmonary embolism type I26.99 Gage Day III, MD [address] [place] [address] [place] [phone] 03/13/2024 Gage Day ITP (idiopathic thrombocytopenic purpura) D69.3 ; Essential hypertension I10 ; Acute pulmonary embolism without acute cor pulmonale, unspecified pulmonary embolism type I26.99 ; Lupus anticoagulant syndrome D68.62 ; Anticoagulated Z79.01 and Overweight (BMI 25.0-29.9) E66.3 Gage Day III, MD [address] [place] [address] [place] [address] 04/07/2024 Gage Day ITP (idiopathic thrombocytopenic purpura) D69.3 ; Essential hypertension I10 ; Anticoagulated Z79.01 ; Lupus anticoagulant syndrome D68.62 ; Acute pulmonary embolism without acute cor pulmonale, unspecified pulmonary embolism type I26.99 and Allergy to sulfa drugs Z88.2 Gage Day III, MD [address] [facility] [phone] 05/01/2024 Gage Day ITP (idiopathic thrombocytopenic purpura) D69.3 ; Essential hypertension I10 ; Anticoagulated Z79.01 ; Lupus anticoagulant syndrome D68.62 ; Acute pulmonary embolism without acute cor pulmonale, unspecified pulmonary embolism type I26.99 ; Macrocytic anemia D53.9 and Overweight (BMI 25.0-29.9) E66.3 Gage Day III, MD [address] [place] [address] [place] [address] 05/28/2024 Gage Day ITP (idiopathic thrombocytopenic purpura) D69.3 ; Essential hypertension I10 ; Lupus anticoagulant syndrome D68.62 ; Acute pulmonary embolism without acute cor pulmonale, unspecified pulmonary embolism type I26.99 ; Anticoagulated Z79.01 ; Macrocytic anemia D53.9 and Overweight (BMI 25.0-29.9) E66.3 Gage Day III, MD [address] [place] [address] [place] [address] 06/19/2024 Gage Day ITP (idiopathic thrombocytopenic purpura) D69.3 ; Essential hypertension I10 ; Anticoagulated Z79.01 ; Lupus anticoagulant syndrome D68.62 and Overweight (BMI 25.0-29.9) E66.3 Gage Day III, MD [address] [place] [address] [place] [phone] 07/14/2024 Gage Day ITP (idiopathic thrombocytopenic purpura) D69.3 ; Essential hypertension I10 ; Lupus anticoagulant syndrome D68.62 ; Acute pulmonary embolism without acute cor pulmonale, unspecified pulmonary embolism type I26.99 ; Anticoagulated Z79.01 and Overweight (BMI 25.0-29.9) E66.3 Gage Day III, MD [address] [place] [address] [place] [address] 08/07/2024 Gage Day ITP (idiopathic thrombocytopenic purpura) D69.3 ; Essential hypertension I10 ; Lupus anticoagulant syndrome D68.62 ; Acute pulmonary embolism without acute cor pulmonale, unspecified pulmonary embolism type I26.99 ; Anticoagulated Z79.01 and Overweight (BMI 25.0-29.9) E66.3 Gage Day III, MD [address] [place] [address] [place] [address] 08/28/2024 Gage Day ITP (idiopathic thrombocytopenic purpura) D69.3 ; Essential hypertension I10 ; Lupus anticoagulant syndrome D68.62 ; Acute pulmonary embolism without acute cor pulmonale, unspecified pulmonary embolism type I26.99 ; Anticoagulated Z79.01 and Macrocytic anemia D53.9 Gage Day III, MD [address] [place] [address] [place] [address] 09/18/2024 Gage Day ITP (idiopathic thrombocytopenic purpura) D69.3 ; Essential hypertension I10 ; History of herpes zoster Z86.19 ; Anticoagulated Z79.01 ; Lupus anticoagulant syndrome D68.62 ; Acute pulmonary embolism without acute cor pulmonale, unspecified pulmonary embolism type I26.99 and Overweight (BMI 25.0-29.9) E66.3 Gage Day III, MD [address] [place] [address] [place] [address] 10/09/2024 Gage Day ITP (idiopathic thrombocytopenic purpura) D69.3 ; Essential hypertension I10 ; Macrocytic anemia D53.9 ; Anticoagulated Z79.01 ; Lupus anticoagulant syndrome D68.62 and Overweight (BMI 25.0-29.9) E66.3 Gage Day III, MD [address] [place] [address] [place] [address] 10/30/2024 Gage Day ITP (idiopathic thrombocytopenic purpura) D69.3 ; Overweight E66.3 ; Lupus anticoagulant syndrome D68.62 ; Macrocytic anemia D53.9 and Acute pulmonary embolism without acute cor pulmonale, unspecified pulmonary embolism type I26.99 Gage Day III, MD [address] [place] [address] [place] [address] 11/27/2024 Gage Day ITP (idiopathic thrombocytopenic purpura) D69.3 ; Overweight E66.3 ; Essential hypertension I10 ; Acute pulmonary embolism without acute cor pulmonale, unspecified pulmonary embolism type I26.99 ; Lupus anticoagulant syndrome D68.62 ; Anticoagulated Z79.01 and Macrocytic anemia D53.9 Gage Day III, MD [address] [place] [address] [place] [phone] 12/25/2024 Gage Day ITP (idiopathic thrombocytopenic purpura) D69.3 ; Overweight E66.3 ; Essential hypertension I10 ; Acute pulmonary embolism without acute cor pulmonale, unspecified pulmonary embolism type I26.99 ; Lupus anticoagulant syndrome D68.62 ; Anticoagulated Z79.01 and Macrocytic anemia D53.9 Assessments Encounter Date Diagnosis (ICD Code) Assessment Notes T reatment Notes Treatment Clinical Notes 01/22/2024 ITP (idiopathic thrombocytopenic purpura) (ICD-10 - [...] weight and 1/2 pound per week. 12/25/2024 ITP (idiopathic thrombocytopenic purpura) (ICD-10 - D69.3) Her current platelet count is 203,000. She is stable at this time and no change in her therapy was needed. She will take 5 mg of prednisone daily. Her next visit will be in 3 weeks after a CBC. 01/22/2024 Overweight (ICD-10 - E66.3) We have [...] has been in the normal range. 12/25/2024 Essential hypertensi on (ICD-10 - I10) She is managed by primary care and says her blood pressure has been in the normal range. 01/22/2024 Lupus anticoagulant syndrome (ICD-10 - D68.62) [...] She continues on her current therapy. 12/25/2024 Acute pulmonary embolism without acute cor [...] or emboli or bleeding.She remains anticoagulated. 12/25/2024 Lupus anticoagulant syndrome (ICD-10 - D68.62) [...] current therapy. No change was made. 12/25/2024 Anticoagulated (ICD- 10 - Z79.01) She [...] is being evaluated but is not progressive. 12/25/2024 Macrocytic anemia (ICD-10 - D53.9) Her [...] DIFF 06/05/2023 CBC WITH AUTO DIFF 07/19/2023 Complete Blood Count Auto Diff 5 Ferritin 07/19/2023 Vitamin B12 07/19/2023 Folate 07/19/2023 Next Appt Details Provider Name:Gage Erazorne , 01/22/2025 10:30:00 AM, [address] [place] [address] , [facility] [address], [facility], [address], Insurance Providers Payer Name Payer Address Payer Phone Subscriber Number Group Number Insured Name Patient Relationship to Insured Coverage Start Date Coverage End Date MEDICARE NGS [address] [place] [address] [phone] [id number] Roseann Guido Self - patient is the insured [facility] [address] [place], [place] [id number] Roseann Guido Self - patient is the [...]
--- OUTSIDE RECORDS SUMMARY | 2025-01-21 10:17 | XMS_ITS | Patient Health Record ---
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 Role Phone Farheen (RETIRED) Sg EDWARDS Primary Care Provider Unavailable Gage Lizarraga Unavailable [phone] Allergies Allergen (clinical drug ingredient) Drug/Non Drug Allergy documented on EMR Reaction Allergy Type Onset Date Status antibiotics (uncoded) rash Allergy Active Penicillin Unknown Drug Allergy Active Substance with sulfonamide structure and antibacterial mechanism of action (substance) Sulfa Antibiotics Unknown Drug Allergy Active Reason For Referral No Information Medications Medication SIG (Take, Route, Frequency, Duration) Notes Start Date End Date Status predniSONE 5 MG Tablet Oral; Duration: 30 Active Metoprolol Tartrate 100 MG Tablet 1 tablet with food Orally Twice a day Active Vitamin B Complex - Tablet Orally Active Calcium 500 MG Tablet 1 tablet with meal s Orally Twice a day; Duration: 30 day(s) Active Multivitamin - Tablet 1 tablet Orally On ce a day; Duration: 30 day(s) Active Losartan Potassium 50 MG Tablet Oral; Duration: 90 Active Rosuvastatin Calcium 5 MG Tablet Oral; Duration: 90 Active Levothyroxine Sodium 50 MCG Tablet Oral; Duration: 90 Active Eliquis 5 MG Tablet Oral; Duration: 30 Active Vitamin D3 50 MCG (1999) Tablet TAKE 1 TABLET DAILY Oral; Duration: 90 Active Social History Tobacco Use: Social History Observation Description Date Details (start date - stop date) Never Smoker NA - NA Social History Drugs/Alcohol: Social Info Question Answer Notes Alcohol Screen Did you have a drink containing alcohol in the past year? No Points 0 Interpretation Negative Tobacco Use: Social Info Question Answer Notes Tobacco Use/Smoking Patient is a nonsmoker Additional Details Category Social Info Options Details Miscellaneous: Marital status: Occupation: retired Section Notes: Nonsmoker, no sig alcohol Nonsmoker, no sig alcohol Problems Problem Type SNOMED Code ICD Code Onset Dates Problem Status W/U Status Risk Notes Problem Screening for malignant neoplasm of colon (248719658) Encounter for screening for malignant neoplasm of colon (Z12.11) Active confirmed Problem History of adenomatous polyp of colon (699987449) History of adenomatous polyp of colon (Z86.010) Active confirmed Problem History of polyp of colon (situation) (165705744) Personal history of colonic polyps (Z86.010) Active confirmed Problem Diverticular disease of colon (633021635) Diverticulosis of large intestine without perforation or abscess without bleeding (K57.30) Active confirmed Problem Preprocedural examination (813853895627841 ) Preprocedural examination (Z01.818) Active confirmed Problem Long-term current use of anticoagulant (118970848) Current use of oysterman anticoagulation (Z79.01) Active confirmed Plan Of Treatment Future Test Test Name Order Date COLONOSCOPY 11/13/2016 COLONOSCOPY 06/11/2023 Insurance Providers Payer Name Payer Address Payer Phone Subscriber Number Group Number Insured Name Patient Relationship to Insured Coverage Start Date Coverage End Date MEDICARE OF [place] [address] [place] [address] [id number] SERG GUIDO Self - patient is the insured [facility] [address] [place], [place] [id number] [phone] [id number] SERG GUIDO Self - patient is the insured Medical (General) History Medical History History ICD Code Screening colonoscopy 05-27-19 08--no polyps; just diverticulosis and internal hemorrhoids Denies PR,DM,CVA,Lung disease,renal dise ase ITP--treated with prednisone and Rituxan --dx'd in 2014 HTN Pulmonary embolism-Dr. Day--uses Eliqu is Colonoscopy 07/2017 with a small rectal t ubular adenoma Vertebroplasty Surgical History Surgery Date(Month/Year)
== END 2025-01-21 09:15 | disposition home or self-care (01) ==
LOC: HO.LABR 09:14
PROVIDERS: PCP Internal Medicine; Visit Provider Internal Medicine Medical Oncology
DX: D69.3 Immune thrombocytopenic purpura (principal)
CPT/HCPCS: 36415; 85025

== ENCOUNTER 2025-01-25 13:46 | Outpatient (REF) | payer MEDICARE, BC, SELFPAY ==
--- NOTE | ~2025-01-25 | MM_ITS ---
EXAMINATION: DXA BONE DENSITY AXIAL HISTORY: M85.80 - Other specified disorders of bone density and structure, unspecified... TECHNIQUE: [employer] Dual energy absorptiometry (DEXA) of the lumbar spine, total left hip, and femoral neck was performed. COMPARISON: Comparison is made with the prior examination dated 10/14/2009. FINDINGS: The bone mineral density of the lumbar spine is 1.177 g/cm2, corresponding to a T-score of 0.0, and a Z-score of 1.1. This is indicative of normal bone mineral density. This represents a BMD change of -0.6% compared to the prior exam. This is not statistically significant. The bone mineral density of the left total hip is 0.858 g/cm2, corresponding to a T-score of -1.2, and a Z-score of 0.0. This is indicative of osteopenia. This represents a BMD change of -9.3% compared to the prior exam. This is statistically significant. The bone mineral density of the left femoral neck is 0.816 g/cm2, corresponding to a T-score of -1.6, and a Z-score of -0.2. This is indicative of osteopenia. This represents a BMD change of 12.6% compared to the prior exam. FRACTURE RISK: The FRAX index suggests a ten year probability of major osteoporotic fracture of 16.8%, and of hip fracture 3.4%. MM/XR DEXA axial skeleton IMPRESSION: Based on bone mineral density, and according to World Health Organization (WHO) criteria, the diagnosis is consistent with osteopenia. Statistically, 68% of repeat scans fall within 1 SD (+/- 0.010 g/cm2 for AP spine L1-L4) and 1 SD (+/- 0.012 g/cm2 for femur total) FRAX is a trademark of the [employer]'s [place] for Metabolic Bone Disease, a World Health Organization (WHO) Collaborating Center. Electronically signed by: Gage Garcia MD 01/25/2025 03:15 PM [facility]
== END 2025-01-25 13:47 | disposition home or self-care (01) ==
LOC: HO.MAMMO 13:46
PROVIDERS: PCP Internal Medicine; Visit Provider Internal Medicine
DX: M85.80 Other specified disorders of bone density and structure, unspecified site (principal); Z79.52 Long term (current) use of systemic steroids
CPT/HCPCS: 77080

== ENCOUNTER → 2025-01-25 14:00 | Outpatient (BNV) | payer MEDICARE, BC, SELFPAY | PROVIDERS: PCP Internal Medicine; Visit Provider Radiology Diagnostic Radiology | DX: E28.39 Other primary ovarian failure (principal) | CPT/HCPCS: 77080 ==